=== PATIENT | male | born 1995 | race Caucasian/White ===

== ENCOUNTER 2017-06-14 11:27 | Emergency (ER) | payer BC ==
[~2017-06-14] VITALS: Ht 177.8 cm; Wt 72.6 kg
[~2017-06-14 11:27] MED LIST: TRAMADOL HCL50 MG PO
[2017-06-14] MEDS ORDERED: HUMIRA CRO40 MG/0.8 SUB-Q (11:41)
[2017-06-15] MEDS ORDERED: AUGMENTIN 875-1 EACH PO (08:23)
[2017-06-15] MEDS ORDERED: MEDROL4 MG PO (08:23)
== END 2017-06-14 11:45 | disposition home or self-care (01) ==
LOC: ED 11:27
DX: J02.9 Acute pharyngitis, unspecified (principal)

== ENCOUNTER 2017-06-15 08:06 | Emergency (ER) | payer BC, OTHER ==
[~2017-06-15] VITALS: Ht 177.8 cm; Wt 72.6 kg
[~2017-06-15 08:06] MED LIST changes: +HUMIRA CRO40 MG/0.8 SUB-Q
[2017-06-15] MEDS ORDERED: AUGMENTIN 875-1 EACH PO (08:23)
[2017-06-15] MEDS ORDERED: MEDROL4 MG PO (08:23)
== END 2017-06-15 09:20 | disposition home or self-care (01) ==
LOC: ED 08:06
DX: J03.90 Acute tonsillitis, unspecified (principal); Z79.899 Other long term (current) drug therapy
CPT/HCPCS: 86308; 99283

== ENCOUNTER 2019-02-23 21:01 | Emergency (ER) | payer OTHER, BC ==
[~2019-02-23] VITALS: Ht 177.8 cm; Wt 63.5 kg
--- OUTSIDE RECORDS SUMMARY | ~2019-02-23 | XMS | Encounter Summary ---
Demographics + + + | Address | [address] | | | [place] [address] | + + + | Home Phone | | + + + | Preferred Language | Unknown | + + + | Marital Status | Single | + + + | Jew Affiliation | NON | + + + | Race | White | + + + | Ethnic Group | Not or | + + + Author + + + | Author | [facility] | + + + | Organization | [facility] | + + + | Address | Unknown | + + + | Phone | Unavailable | + + + Support + + + + + | Name | Relationship | Address | Phone | + + + + + | Debora Resendiz | ECON | [address] | | | | | [place] | | | | | [address] | | + + + + + | Quang Resendiz | ECON | Unknown | | + + + + + | Vesna Hernandez | ECON | Unknown | | + + + + + | Pradeep Hyatt | ECON | Unknown | Unavailable | + + + + + | Lonnie Hyatt | ECON | Unknown | Unavailable | + + + + + | Jeremias | ECON | Unknown | | + + + + + Care Team Providers + +------+ + | Care Graphic Editor Name | Role | Phone | + +------+ + | Tracey Galeas MD | PCP | Unavailable | + +------+ + Encounter Details +--------+ + + + + | Date | Type | Department | Care Team | Description | +--------+ + + + + | 05/11/ | Abstract | Pediatric | Tania Foster MD | | | 2011 | | Gastroenterology at | [address] | | | | | [place] | [facility] Ye[facility] | | | | | [facility] | [place] [address] | | | | | [address] [facility] | [phone] | | | | | Mailcode: [address] | | | | | | [place] | | | | | | [place], [place] | | | | | | [address] | | | | | | [phone] | | | +--------+ + + + + Social History + +-------+ +--------+------+ | Tobacco Use | Types | Packs/Day | Years | Date | | | | | Used | | + +-------+ +--------+------+ | Never Smoker | | | | | + +-------+ +--------+------+ + + +---------+ + | Alcohol Use | Drinks/Week | oz/Week | Comments | + + +---------+ + | No | | | | + + +---------+ + + + + | Sex Assigned at | Date Recorded | | | | + + + | Not on file | | + + + + + + + | Job Start Date | Occupation | Industry | + + + + | Not on file | Not on file | Not on file | + + + + + + + + | Travel History | Travel Start | Travel End | + + + + + + | No recent travel history available. | + + documented as of this encounter Plan of Treatment Not on filedocumented as of this encounter Procedures + +--------+ + + + | Procedure Name | Priori | Date/Time | Associated Diagnosis | Comments | | | ty | | | | + +--------+ + + + | THIOPURINE | Routin | 04/22/2011 | | Results for this | | METABOLITES | e | 3:20 PM | | procedure are in the | | | | PST | | results section. | + +--------+ + + + documented in this encounter Results THIOPURINE METABOLITES (04/22/2011 3:20 PM PST) + +---------+ + + + | Component | Value | Ref Range | Performed | Pathologist | | | | | At | Signature | + +---------+ + + + | 6-TGN | 184 (A) | 230 - 400 | [facility] | | | (THIOPURINE | | pmol/8x10 8 RBC | LABORATORIE | | | | | | S | | | METABOLITE) | | | | | + +---------+ + + + | 6-MMPN | 819 | <5,700 | [facility] | | | (THIOPURINE | | pmol/8x10 8 RBC | LABORATORIE | | | | | | S | | | METABOLITE) | | | | | + +---------+ + + + + + | Specimen | + + | Blood | + + + + + + + | Performing | Address | City/State/Zipcode | Phone Number | | Organization | | | | + + + + + | [facility] | [address] | [place] [address] | | | LABORATORIES | [address] | | | + + + + + documented in this encounter Visit Diagnoses Not on filedocumented in this encounter"
--- OUTSIDE RECORDS SUMMARY | ~2019-02-23 | XMS | Encounter Summary ---
Demographics + + + | Address | [address] | | | [place] [address] | + + + | Home Phone | | + + + | Preferred Language | Unknown | + + + | Marital Status | Single | + + + | Methodist Affiliation | NON | + + + | Race | White | + + + | Ethnic Group | Not or | + + + Author + + + | Author | [facility] | + + + | Organization | [facility] | + + + | Address | Unknown | + + + | Phone | Unavailable | + + + Support + + + + + | Name | Relationship | Address | Phone | + + + + + | Debora Resendiz | ECON | [address] | | | | | [place] | | | | | [address] | | + + + + + [...] Team Providers + +------+ + | Care Plasterer Rough Name | Role | Phone | + +------+ + | Tracey Galeas MD | PCP | Unavailable | + +------+ + Reason for Visit + + + | Reason | Comments | + + + | Refill Request | [place] | + + + Encounter Details +--------+--------+ + + + | Date | Type | Department | Care Team | Description | +--------+--------+ + + + | 12/31/ | Refill | Pediatric | Tania Foster MD | Refill Request | | 2012 | | Gastroenterology at | [address] | ([place]) | | | | [place] | [facility], | | | | | [facility] | [place] [address] | | | | | [address] | [phone] | | | | | Mailcode: CDR | | | | | | [place] | | | | | | [place], [place] | | | | | | [address] | | | | | | [phone] | | | +--------+--------+ + + + Social History + +-------+ [...] Not on filedocumented as of this encounter Visit Diagnoses Not on filedocumented in this encounter"
--- OUTSIDE RECORDS SUMMARY | ~2019-02-23 | XMS | Encounter Summary ---
Demographics + + + | Address | [address] | | | [place] [address] | + + + | Home Phone | | + + + | Preferred Language | Unknown | + + + | Marital Status | Single | + + + | Sabianism Affiliation | NON | + + + | Race | White | + + + | Ethnic Group | Not or | + + + Author + + + | Author | [facility] | + + + | Organization | [facility] | + + + | Address | Unknown | + + + | Phone | Unavailable | + + + Support + + + + + | Name | Relationship | Address | Phone | + + + + + | Debora Resendiz | ECON | [address] | | | | | [place] | | | | | [address] | | + + + + + [...] Team Providers + +------+ + | Care Chemist Name | Role | Phone | + +------+ + | Srinivas Stephens DO | PCP | | + +------+ + Reason for Visit + + + | Reason | Comments | + + + | Prescription | Rafaela Flores | + + + Encounter Details +--------+ + + + + | Date | Type | Department | Care Team | Description | +--------+ + + + + | 09/29/ | Telephone | Pediatric | Tania Foster MD | Prescription | | 2014 | | Gastroenterology at | [address] | (Rafaela Flores) | | | | [place] | Cristian Yepez [place], | | | | | [facility] | [place] [address] | | | | | [address] | [phone] | | | | | Mailcode: [facility] | | | | | | [place] | | | | | | [place], [place] | | | | | | [address] | | | | | | [phone] | | | +--------+ + + + [...] Not on filedocumented as of this encounter Results VITAMIN D, 25-HYDROXY, SERUM (12/11/2014 2:13 PM PDT) + + + + + + | Component | Value | Ref Range | Performed | Pathologist | | | | | At | Signature | + + + + + + | VITAMIN D | 29.8 (L) | 30 - 80 ng/mL | [facility] | | | 25 HYDROXY | | | LABORATORY | | | | | | SERVICES, | | | | | | SPECIAL IMM | | | | | | + COAG | | + + + + + + + + | Specimen | + + | Blood - Blood | | (substance) | + + + + + | Narrative | Performed At | + + + | REFERENCE INTERVAL: Vitamin D, 25-Hydroxy 0-17years: | [facility] | | Deficiency: less than 20 ng/mL Optimum level: | LABORATORY | | greater than or equal to 20 ng/mL* | SERVICES, | | *(Rankin CL et al. Pediatrics 2008; 122:1128-38.) 18 | SPECIAL IMM + | | years and older: Deficiency: less than 20 | COAG | | ng/mL Insufficiency: 20-29 ng/mL | | | Optimum Level: 30-80 ng/mL High: | | | 81-150 ng/ml Toxic: Greater than | | | 150 ng/mL This assay accurately quantifies the sum of Vitamin D3 | | | 25-hydroxy and Vitamin D2, 25-hydroxy. Reference range | | | change effective 09/16/2012. | | + + + + + + + + | Performing | Address | City/State/Zipcode | Phone Number | | Organization | | | | + + + + + | [facility] | [address] | [place] [address] | | | SERVICES, SPECIAL | [address] | | | | IMM + COAG | | | | + + + + + SEDIMENTATION RATE (12/11/2014 2:13 PM PDT) + +-------+ + + + | Component | Value | Ref Range | Performed | Pathologist | | | | | At | Signature | + +-------+ + + + | SEDIMENTATI | 3 | 0 - 15 mm/hr | [facility] | | | ON RATE | | | LABORATORY | | | | | | SERVICES, | | | | | | CORE | | + +-------+ + + + + + | Specimen | + + | Blood - Blood | | (substance) | + + + + + + + | Performing | Address | City/State/Zipcode | Phone Number | | Organization | | | | + + + + + | [facility] | [address] | [place] [address] | | | SERVICES, CORE | [address] | | | + + + + + COMPLETE METABOLIC SET (NA,K,CL,CO2,BUN,CREAT,GLUC,CA,AST,ALT,BILI TOTAL,ALK PHOS,ALB,PROT TOTAL) (12/11/2014 2:13 PM PDT) + +---------+ + + + | Component | Value | Ref Range | Performed | Pathologist | | | | | At | Signature | + +---------+ + + + | GLUCOSE, | 88 | 60 - 99 mg/dL | [facility] | | | PLASMA | | | LABORATORY | | | (LAB) | | | SERVICES, | | | | | | CORE | | + +---------+ + + + | BUN, PLASMA | 8 | 6 - 20 mg/dL | [facility] | | | (LAB) | | | LABORATORY | | | | | | SERVICES, | | | | | | CORE | | + +---------+ + + + | CREATININE | 0.93 | 0.70 - 1.30 | [facility] | | | PLASMA | | mg/dL | LABORATORY | | | (LAB) | | | SERVICES, | | | | | | CORE | | + +---------+ + + + | EGFR | >60 | >60 mL/min | [facility] | | | - | | | LABORATORY | | | [place] | | | SERVICES, | | | | | | CORE | | + +---------+ + + + | EGFR NON | >60 | >60 mL/min | [facility] | | | -EVIN | | | LABORATORY | | | RICAN | | | SERVICES, | | | | | | CORE | | + +---------+ + + + | SODIUM, | 141 | 136 - 145 | [facility] | | | PLASMA | | mmol/L | LABORATORY | | | (LAB) | | | SERVICES, | | | | | | CORE | | + +---------+ + + + | POTASSIUM, | 3.8 | 3.4 - 5.0 | [facility] | | | PLASMA | | mmol/L | LABORATORY | | | (LAB) | | | SERVICES, | | | | | | CORE | | + +---------+ + + + | CHLORIDE, | 107 | 97 - 108 mmol/L | [facility] | | | PLASMA | | | LABORATORY | | | (LAB) | | | SERVICES, | | | | | | CORE | | + +---------+ + + + | TOTAL CO2, | 29 | 21 - 32 mmol/L | [facility] | | | PLASMA | | | LABORATORY | | | (LAB) | | | SERVICES, | | | | | | CORE | | + +---------+ + + + | CALCIUM, | 9.6 | 8.6 - 10.2 | [facility] | | | PLASMA | | mg/dL | LABORATORY | | | (LAB) | | | SERVICES, | | | | | | CORE | | + +---------+ + + + | BILIRUBIN | 0.7 | 0.3 - 1.2 mg/dL | [facility] | | | TOTAL | | | LABORATORY | | | | | | SERVICES, | | | | | | CORE | | + +---------+ + + + | TOTAL | 7.8 | 6.4 - 8.2 g/dL | [facility] | | | PROTEIN, | | | LABORATORY | | | PLASMA | | | SERVICES, | | | (LAB) | | | CORE | | + +---------+ + + + | ALBUMIN, | 4.6 | 3.5 - 4.7 g/dL | [facility] | | | PLASMA | | | LABORATORY | | | (LAB) | | | SERVICES, | | | | | | CORE | | + +---------+ + + + | ALK PHOS | 73 | 55 - 220 U/L | [facility] | | | | | | LABORATORY | | | | | | SERVICES, | | | | | | CORE | | + +---------+ + + + | AST(SGOT) | 11 | <=41 U/L | [facility] | | | | | | LABORATORY | | | | | | SERVICES, | | | | | | CORE | | + +---------+ + + + | ALT (SGPT) | 17 | <=60 U/L | [facility] | | | | | | LABORATORY | | | | | | SERVICES, | | | | | | CORE | | + +---------+ + + + | ANION | 3 (L) | 4 - 11 mmol/L | [facility] | | | GAP(ALB | | | LABORATORY | | | CORRECTED) | | | SERVICES, | | | | | | CORE | | + +---------+ + + + | POTASSIUM | No Hemo | | [facility] | | | CMNT | | | LABORATORY | | | | | | SERVICES, | | | | | | CORE | | + +---------+ + + + | BILI T CMNT | No Hemo | | [facility] | | | | | | LABORATORY | | | | | | SERVICES, | | | | | | CORE | | + +---------+ + + + | AST CMNT | No Hemo | | [facility] | | | | | | LABORATORY | | | | | | SERVICES, | | | | | | CORE | | + +---------+ + + + | ANION GAP | 5 | mmol/L | [facility] | | | | | | LABORATORY | | | | | | SERVICES, | | | | | | CORE | | + +---------+ + + + + + | Specimen | + + | Blood - Blood | | (substance) | + + + + + | Narrative | Performed At | + + + | GFR is estimated using the MDRD equation recommended by the | [facility] | | National Kidney Disease Education Program. Estimated GFR | LABORATORY | | Interpretive Information: <60 mL/min/1.73 sq m | SERVICES, CORE | | Chronic Kidney Disease <15 mL/min/1.73 sq m | | | Kidney Failure Estimated GFR greater that 60 mL/min/1.73 sq m is of | | | limited clinical value. The MDRD equation is not valid in the | | | following situations: - Patients under 18 years of age - Severe | | | malnutrition or obesity - Vegetarian diet - Rapidly changing kidney | | | function | | + + + + + + + + | Performing | Address | City/State/Zipcode | Phone Number | | Organization | | | | + + + + + | [facility] | [address] | [place] [address] | | | SERVICES, CORE | [address] | | | + + + + + documented in this encounter Visit Diagnoses + + | Diagnosis | + + | Crohn's disease, small and large intestine, other complication - Primary | + + | Adalimumab (Humira) long-term use | + + documented in this encounter"
--- OUTSIDE RECORDS SUMMARY | ~2019-02-23 | XMS | Encounter Summary ---
Demographics + + + | Address | [address] | | | [place] [address] | + + + | Home Phone | | + + + | Preferred Language | Unknown | + + + | Marital Status | Single | + + + | Gnosticist Affiliation | NON | + + + | Race | White | + + + | Ethnic Group | Not or | + + + Author + + + | Author | [facility] | + + + | Organization | [facility] | + + + | Address | Unknown | + + + | Phone | Unavailable | + + + Support + + + + + | Name | Relationship | Address | Phone | + + + + + | Debora Resendiz | ECON | [address] | | | | | [place] | | | | | [address] | | + + + + + [...] Team Providers + +------+ + | Care Emergency Management Coordinator Name | Role | Phone | + +------+ + | Tracey Galeas MD | PCP | Unavailable | + +------+ + Reason for Visit + + + | Reason | Comments | + + + | Question | | + + + Encounter Details +--------+ + + + + | Date | Type | Department | Care Team | Description | +--------+ + + + + | 04/11/ | Telephone | Pediatric | Tania Foster MD | Question | | 2014 | | Gastroenterology at | [address] [facility] [address] [facility] | | | | | [place] | Herminia Yepez [place], | | | | | [facility] | [place] [address] | | | | | [address] [facility] | [phone] | | | | | Mailcode: [address] | | | | | | [place] | | | | | | [place], [place] | | | | | | [address] | | | | | | [phone] | | | +--------+ + + + [...]
--- OUTSIDE RECORDS SUMMARY | ~2019-02-23 | XMS | Encounter Summary ---
Demographics + + + | Address | [address] | | | [place] [address] | + + + | Home Phone | | + + + | Preferred Language | Unknown | + + + | Marital Status | Single | + + + | Sikhism Affiliation | NON | + + + | Race | White | + + + | Ethnic Group | Not or | + + + Author + + + | Author | [facility] | + + + | Organization | [facility] | + + + | Address | Unknown | + + + | Phone | Unavailable | + + + Support + + + + + | Name | Relationship | Address | Phone | + + + + + | Debora Resendiz | ECON | [address] | | | | | [place] | | | | | [address] | | + + + + + [...] Team Providers + +------+ + | Care Disbursing Agent Name | Role | Phone | + +------+ + | Tracey Galeas MD | PCP | Unavailable | + +------+ + Encounter Details +--------+ + + + + | Date | Type | Department | Care Team | Description | +--------+ + + + + | 02/05/ | Documentati | Pediatric | Tania Foster MD | | | 2010 | on | Gastroenterology at | [address] | | | | | [place] | [address] Ye[address] [place], | | | | | [facility] | [place] [address] | | | | | [address] | [phone] | | | | | Mailcode: [facility] | | | | | | [place] | | | | | | [place], [place] | | | | | | [address] | | | | | | [phone] | | | +--------+ + + + [...]
--- OUTSIDE RECORDS SUMMARY | ~2019-02-23 | XMS | Encounter Summary ---
Demographics + + + | Address | [address] | | | [place] [address] | + + + | Home Phone | | + + + | Preferred Language | Unknown | + + + | Marital Status | Single | + + + | Adventist Affiliation | NON | + + + [...] + | Debora Resendiz | ECON | [address] | | | | | [place] | | | | | [address] | | + + + + + [...] Team Providers + +------+ + | Care Academic Support Assistant Name | Role | Phone | + +------+ + | Tracey Galeas MD | PCP | Unavailable | + +------+ + Reason for Visit + + + | Reason | Comments | + + + | Abdominal pain | | + + + Encounter Details +--------+ + + + + | Date | Type | Department | Care Team | Description | +--------+ + + + + | 04/23/ | Telephone | Pediatric | Tania Foster MD | Abdominal pain | | 2011 | | Gastroenterology at | [address] | | | | | [place] | [address] Yepez [place], | | | | | [facility] | [place] [address] | | | | | [address] [place] [address] | [phone] | | | | | Mailcode: [address] | | | | | | [place] | | | | | | [place], [place] | | | | | | [address] | | | | | | [phone] | | | +--------+ + + + [...] filedocumented as of this encounter Visit Diagnoses + + | Diagnosis | + + | Crohn's disease, small and large intestine (HCC) - Primary Regional enteritis of | | small intestine with large intestine | + + documented in this encounter"
--- OUTSIDE RECORDS SUMMARY | ~2019-02-23 | XMS | Encounter Summary ---
Demographics + + + | Address | [address] | | | [place] [address] | + + + | Home Phone | | + + + | Preferred Language | Unknown | + + + | Marital Status | Single | + + + | Bahai Affiliation | NON | + + + | Race | White | + + + | Ethnic Group | Not or | + + + Author + + + | Author | [facility] | + + + | Organization | [facility] | + + + | Address | Unknown | + + + | Phone | Unavailable | + + + Support + + + + + | Name | Relationship | Address | Phone | + + + + + | Debora Resendiz | ECON | [address] | | | | | [place] | | | | | [address] | | + + + + + [...] Team Providers + +------+ + | Care Automotive Sales Representative Name | Role | Phone | + +------+ + | Tracey Galeas MD | PCP | Unavailable | + +------+ + Reason for Referral Diagnostic Testing (Routine) +--------+--------+ + + + + | Status | Reason | Specialty | Diagnoses / | Referred By | Referred To | | | | | Procedures | Contact | Contact | +--------+--------+ + + + + | Closed | | Radiology | Diagnoses | Kristin, | [facility] | | | | | Crohn's | Tania Landrum MD | [address] | | | | | disease, | [address] | [address] | | | | | small and | [address] | | | | | large | [place] Yepez | Mailcode: | | | | | intestine | [place], [place] | [address] | | | | | ([facility]) | [address] | [place] | | | | | Procedures | Phone: | Research | | | | | MR | [id number] | Center | | | | | ENTEROGRAPHY | Fax: | [place], [place] | | | | | ABDOMEN AND | [phone] | [address] | | | | | PELVIS WWO | | Phone: | | | | | CONTRAST | | [phone] | | | | | | | Fax: | | | | | | | [phone] | +--------+--------+ + + + + Reason for Visit +--------+ + | Reason | Comments | +--------+ + | Other | | +--------+ + Encounter Details +--------+ + + + + | Date | Type | Department | Care Team | Description | +--------+ + + + + | 03/05/ | Telephone | Pediatric | Tania Foster MD | Other | | 2011 | | Gastroenterology at | [address] | | | | | [place] | Herminia Yepez [place], | | | | | [facility] | [place] [address] | | | | | [address] | [phone] | | | | | Mailcode: [facility] | | | | | | [address] | | | | | | [place], [place] | | | | | | [address] | | | | | | [phone] | | | +--------+ + + + [...] on filedocumented as of this encounter Results MR ENTEROGRAPHY ABDOMEN AND PELVIS WWO CONTRAST (03/21/2011 10:03 AM PST) + + + + + + | Component | Value | Ref Range | Performed | Pathologist | | | | | At | Signature | + + + + + + | MR | MRI of the abdomen and | | | | | ENTEROGRAPH | pelvis with and without | | | | | Y ABDOMEN | contrast: 03/21/11. | | | | | AND PELVIS | Comparison: None. | | | | | WWO | History: History of | | | | | CONTRAST | Crohn's disease and | | | | | | ileitis. Technique: | | | | | | The patient was imaged | | | | | | prone to reduce motion | | | | | | artifact.The following | | | | | | sequences were performed | | | | | | of the abdomen and | | | | | | pelvisusing the body | | | | | | coil: coronal 3D bTFE, | | | | | | coronal T2 before and | | | | | | afterglucagon, axial T1 | | | | | | WATS, axial bFFE, | | | | | | coronal 2D bFFE, axial | | | | | | T2 TSESPIR (pelvis | | | | | | only), post-contrast | | | | | | coronal THRIVE, and | | | | | | post-contrastaxial T1 | | | | | | WATS. Intravenous | | | | | | contrast dose: 12 mL | | | | | | Omniscan. | | | | | | Entericcontrast dose: | | | | | | 20 mL/kg Volumen, not | | | | | | fully ingested by | | | | | | patient.Intravenous | | | | | | glucagon also | | | | | | administered (0.5 mg | | | | | | total with half | | | | | | givenbetween series 3 | | | | | | and 4, and half given | | | | | | between pre- and | | | | | | post-contrastsequences). | | | | | | Findings: Abdomen: | | | | | | Visualized portions of | | | | | | liver, pancreas, and | | | | | | spleen areunremarkable. | | | | | | Small accessory spleen | | | | | | noted. Kidneys and | | | | | | adrenalglands are normal | | | | | | in appearance. Small | | | | | | mesenteric lymph | | | | | | nodes,within normal | | | | | | limits for age. Pelvis: | | | | | | Unremarkable urinary | | | | | | bladder. Trace pelvic | | | | | | free fluid. Noabscess, | | | | | | fistulae, or perianal | | | | | | inflammation identified. | | | | | | Bowel: Normal small | | | | | | bowel rotation. Mild | | | | | | mural thickening | | | | | | andmucosal | | | | | | hyperenhancement in | | | | | | short segment of | | | | | | terminal ileum, at | | | | | | andjust proximal to | | | | | | ileocecal valve. | | | | | | Remainder of small | | | | | | bowel isunremarkable, | | | | | | without wall thickening, | | | | | | hyperenhancement, | | | | | | orstricture. Slight | | | | | | hyperenhancement without | | | | | | mural thickening | | | | | | ispresent in descending | | | | | | colon. Large amount of | | | | | | fecal matter in | | | | | | rightand transverse | | | | | | colon. Impression: 1. | | | | | | Mild mural thickening | | | | | | and mucosal | | | | | | hyperenhancementover | | | | | | short segment of | | | | | | terminal ileum, at and | | | | | | just proximal | | | | | | toileocecal valve. 2. | | | | | | Slight | | | | | | hyperenhancement without | | | | | | muralthickening in | | | | | | descending colon. | | | | | | Attending Radiologists: | | | | | | Lisa Valenzuela, | | | | | | MariAuthor: Lisa Mason | | | | | | Mari Valenzuela I have | | | | | | personally viewed this | | | | | | procedure/exam, reviewed | | | | | | this report,and made | | | | | | changes to it where | | | | | | appropriate. | | | | | | Final/Electronically | | | | | | signed / Lisa Mason | | | | | | Nicolas 03/21/201111:27 | | | | | | AM | | | | + + + + + + + + | Specimen | + + | | + + + +---------+ + + | Performing | Address | City/State/Zipcode | Phone Number | | Organization | | | | + +---------+ + + | [facility] DEPARTMENT OF | | | | | RADIOLOGY | | | | + +---------+ + + documented in this encounter Visit Diagnoses + + | Diagnosis | + + | Crohn's disease, small and large intestine (HCC) - Primary Regional enteritis of | | small intestine with large intestine | + + documented in this encounter"
--- OUTSIDE RECORDS SUMMARY | ~2019-02-23 | XMS | Encounter Summary ---
Demographics + + + | Address | [address] | | | [place] [address] | + + + | Home Phone | | + + + | Preferred Language | Unknown | + + + | Marital Status | Single | + + + | Baptist Affiliation | NON | + + + | Race | White | + + + | Ethnic Group | Not or | + + + Author + + + | Author | [facility] | + + + | Organization | [facility] | + + + | Address | Unknown | + + + | Phone | Unavailable | + + + Support + + + + + | Name | Relationship | Address | Phone | + + + + + | Debora Resendiz | ECON | [address] | | | | | [place] | | | | | [address] | | + + + + + [...] Team Providers + +------+ + | Care Ict Support Engineer Name | Role | Phone | + +------+ + | Srinivas Stephens DO | PCP | | + +------+ + Reason for Visit + + + | Reason | Comments | + + + | Care Coordination | Adult GI | + + + Encounter Details +--------+ + + + + | Date | Type | Department | Care Team | Description | +--------+ + + + + | 03/01/ | Telephone | Pediatric | Tania Foster MD | Care Coordination | | 2016 | | Gastroenterology at | [address] [facility] | (Adult GI) | | | | [place] | [place] [address] [place], | | | | | [facility] | [place] [address] | | | | | [address] | [phone] | | | | | Mailcode: [facility] | | | | | | [place] | | | | | | [place], [place] | | | | | | [address] | | | | | | [phone] | | | +--------+ + + + [...]
--- OUTSIDE RECORDS SUMMARY | ~2019-02-23 | XMS | Encounter Summary ---
Demographics + + + | Address | [address] | | | [place] [address] | + + + | Home Phone | | + + + | Preferred Language | Unknown | + + + | Marital Status | Single | + + + | Taoist Affiliation | NON | + + + | Race | White | + + + | Ethnic Group | Not or | + + + Author + + + | Author | [facility] | + + + | Organization | [facility] | + + + | Address | Unknown | + + + | Phone | Unavailable | + + + Support + + + + + | Name | Relationship | Address | Phone | + + + + + | Debora Resendiz | ECON | [address] | | | | | [place] | | | | | [address] | | + + + + + [...] Team Providers + +------+ + | Care Type Proof Reproducer Name | Role | Phone | + +------+ + | Tracey Galeas MD | PCP | Unavailable | + +------+ + Encounter Details +--------+ + + + + | Date | Type | Department | Care Team | Description | +--------+ + + + + | 03/14/ | Abstract | Pediatric | Tania Foster MD | | | 2011 | | Gastroenterology at | [address] | | | | | [place] | [place] [facility] | | | | | [facility] | [place] [address] | | | | | [address] [facility] | [phone] | | | | | Mailcode: [place] | | | | | | [place] | | | | | | [place], [place] | | | | | | [address] | | | | | | [phone] | | | +--------+ + + + [...] | + +--------+ + + + | VITAMIN D, | Routin | 03/10/2011 | | Results for this | | 25-HYDROXY, SERUM | e | 1:34 PM | | procedure are in the | | | | PST | | results section. | + +--------+ + + + documented in this encounter Results VITAMIN D, 25-HYDROXY, SERUM (03/10/2011 1:34 PM PST) + + + + + + | Component | Value | Ref Range | Performed | Pathologist | | | | | At | Signature | + + + + + + | VIT D, | 27Comment: 20-29 vitamin | 20 - 80 pg/mL | [place] - | | | 1,25-DIHYDR | d insufficiency | | [place] - | | | OXY | | | [place] | | + + + + + + | VIT D2 | <4 | | [place] - | | | 25-HYDROXY | | | [place] - | | | LEVEL | | | [place] | | + + + + + + | VIT D3 | 27 | | [place] - | | | 25-HYDROXY | | | [place] - | | | LEVEL | | | [place] | | + + + + + + + + | Specimen | + + | Blood - Blood | + + + + + + + | Performing | Address | City/State/Zipcode | Phone Number | | Organization | | | | + + + + + | [facility] | [address] | [place] [address] | | | [place] | | | | + + + + + documented in this encounter Visit Diagnoses Not on filedocumented in this encounter"
--- OUTSIDE RECORDS SUMMARY | ~2019-02-23 | XMS | Encounter Summary ---
Demographics + + + | Address | [address] | | | [place] [address] | + + + | Home Phone | | + + + | Preferred Language | Unknown | + + + | Marital Status | Single | + + + | Faith Affiliation | NON | + + + | Race | White | + + + | Ethnic Group | Not or | + + + Author + + + | Author | [facility] | + + + | Organization | [facility] | + + + | Address | Unknown | + + + | Phone | Unavailable | + + + Support + + + + + | Name | Relationship | Address | Phone | + + + + + | Debora Resendiz | ECON | [address] | | | | | [place] | | | | | [address] | | + + + + + [...] Team Providers + +------+ + | Care Manager Of Engineering Name | Role | Phone | + +------+ + | Tracey Galeas MD | PCP | Unavailable | + +------+ + Reason for Visit AUTH/CERT +--------+--------+ + + + + | Status | Reason | Specialty | Diagnoses / | Referred By | Referred To | | | | | Procedures | Contact | Contact | +--------+--------+ + + + + | Closed | | | | | | +--------+--------+ + + + + Encounter Details +--------+ + + + + | Date | Type | Department | Care Team | Description | +--------+ + + + + | 01/04/ | Hospital | [facility] [address] | Tania Foster MD | | | 2014 | Encounter | [address] | [address] | | | | | [id number] | [address] | | | | | [place] | [place] [address] | | | | | [facility] | [phone] | | | | | [place], [place] [facility] | | | | | | [phone] | | | +--------+ + + + [...] + + documented as of this encounter Last Filed Vital Signs + + + + + | Vital Sign | Reading | Time Taken | Comments | + + + + + | Blood Pressure | 134/63 | 01/04/2014 10:45 AM | | | | | PST | | + + + + + | Pulse | 71 | 01/04/2014 10:00 AM | | | | | PST | | + + + + + | Temperature | 36.6 C (97.9 F) | 01/04/2014 12:30 PM | | | | | PST | | + + + + + | Respiratory Rate | 16 | 01/04/2014 12:30 PM | | | | | PST | | + + + + + | Oxygen Saturation | 100% | 01/04/2014 10:45 AM | | | | | PST | | + + + + + | Inhaled Oxygen | - | - | | | Concentration | | | | + + + + + | Weight | 74.3 kg (163 lb 12.8 | 01/04/2014 7:32 AM | | | | oz) | PST | | + + + + + | Height | 177.8 cm (5' 10") | 01/04/2014 7:32 AM | | | | | PST | | + + + + + | Body Mass Index | 23.5 | 01/04/2014 7:32 AM | | | | | PST | | + + + + + documented in this encounter Discharge Instructions Instructions Tania Foster MD - 01/04/2014 Welcome to Pediatric Endoscopy! We hope to make this procedure as easy as possible. While your child is undergoing endosco py, please remain in your child s bay or the surgical waiting room in case we have a quest ion, and so the doctor can review the findings with you in person. The time you are given for your procedure is approximate. Emergencies arise that may affec t the actual time we are able to start. Our goal is a safe procedure for all. Home Care after Upper Endoscopy/Colonoscopy Activity: Do not have your child do activities that require coordination for 24 hours (i.e. tricycle or bicycle riding, driving a care or any sports requiring coordination). Resume normal activ ities tomorrow. Call the Pediatric GI provider production broaching machine operator for urgent matters If you see any of these signs, call the GI office at [phone] (option 3) during regular business hours, or the GI provider production broaching machine operator after hours for the following: Increased pain in the abdomen that is different from normal. Note: We inject air in orde r to view the bowel, so there may be gas pains. Walking or changing positions can hel p relieve this. Vomiting more than 3 times, or rectal bleeding of more than 3 episodes Fever above 101.5 degrees Fahrenheit. Shortness of breath. Chest or neck pain. Diet and Medicines: Your child may eat his/her normal diet and take usual medicines unless told otherwise by [facility] doctor. How to Reach Your GI Provider: Mon-Fri from 8:00-4:30, call GI Office at [phone]. After hours, weekends, & holidays, call [facility] Motor And Chassis Inspector at [phone]; ask to edwards ve the Pediatric GI provider production broaching machine operator paged for urgent patient issues as described above. Results: Biopsy results may take 10 days to come back; we will contact you when we receive the res ults. Assure that our check-in desk has your contact numbers. Please sign up for CRAZE in order to receive results faster, if you have a computer. Ot will, we will send you a letter or call when results are available. documented in this encounter Medications at Time of Discharge + + + +---------+ + + | Medication | Sig | Dispensed | Refills | Start | End Date | | | | | | Date | | + + + +---------+ + + | MULTIVITAMIN ORAL | Take by mouth. Take | | 0 | | | | | 1 tablet by mouth | | | | | | | Daily. | | | | | + + + +---------+ + + | peg-electrolyte | Mix GOLYtely and | 4000 mL | 0 | 01/03/20 | | | 236-22.74-6.74 gram | take 8 oz every | | | 14 | | | oral recon soln | 20-30 minutes until | | | | | | | full gallon is gone. | | | | | + + + +---------+ + + documented as of this encounter Plan of Treatment Not on filedocumented as of this encounter Procedures + +--------+ + + + | Procedure Name | Priori | Date/Time | Associated Diagnosis | Comments | | | ty | | | | + +--------+ + + + | H. PYLORI CLOTEST | Routin | 01/04/2014 | | Results for this | | | e | 9:27 AM | | procedure are in the | | | | PST | | results section. | + +--------+ + + + | DISACCHARIDASES, | Routin | 01/04/2014 | | Results for this | | TISSUE | e | 9:24 AM | | procedure are in the | | | | PST | | results section. | + +--------+ + + + | CO COLONOSCOPY, | Routin | 01/04/2014 | | Results for this | | FLEX, W/BIOPSY | e | 9:18 AM | | procedure are in the | | | | PST | | results section. | + +--------+ + + + | CO UPPER GI | Routin | 01/04/2014 | | Results for this | | ENDOSCOPY,BIOPSY | e | 9:18 AM | | procedure are in the | | | | PST | | results section. | + +--------+ + + + | COLONOSCOPY | Electi | 01/04/2014 | Regional enteritis | | | | ve | 9:14 AM | of small intestine | | | | Surgic | PST | with large | | | | al | | intestine, without | | | | | | complications (HCC) | | + +--------+ + + + | EGD | Electi | 01/04/2014 | Regional enteritis | | | | ve | 9:14 AM | of small intestine | | | | Surgic | PST | with large | | | | al | | intestine, without | | | | | | complications (HCC) | | + +--------+ + + + | SURGICAL PATHOLOGY | Routin | 01/04/2014 | | Results for this | | | e | | | procedure are in the | | | | | | results section. | + +--------+ + + + documented in this encounter Results H. PYLORI CLOTEST (01/04/2014 9:27 AM PST) + + + + + + | Component | Value | Ref Range | Performed | Pathologist | | | | | At | Signature | + + + + + + | CLOTEST | CLOtest POSITIVE | | [facility] - | | | INTERPRETAT | (A)Comment: Consistent | | [place] - | | | ION | with the presence of | | [place] | | | | Helicobacter pylori. | | | | + + + + + + + + | Specimen | + + | Biopsy | + + + + + + + | Performing | Address | City/State/Zipcode | Phone Number | | Organization | | | | + + + + + | [facility] - | [address] | [place] [address] | | | [place] | | | | + + + + + DISACCHARIDASES, TISSUE (01/04/2014 9:24 AM PST) + + + + + + | Component | Value | Ref Range | Performed | Pathologist | | | | | At | Signature | + + + + + + | SOURCE, | Duodenum | | [facility] | | | TISSUE | | | REFERENCE | | | | | | LAB | | + + + + + + | LACTASE, | 11.0 (L) | 15.0 - 45.5 | [facility] | | | TISSUE | | uM/min/gm prot | REFERENCE | | | | | | LAB | | + + + + + + | SUCRASE, | 42.5 | 25.0 - 69.9 | [facility] | | | TISSUE | | uM/min/gm prot | REFERENCE | | | | | | LAB | | + + + + + + | MALTASE, | 99.3 (L) | 100.0 - 224.4 | [facility] | | | TISSUE | | uM/min/gm prot | REFERENCE | | | | | | LAB | | + + + + + + | PALATINASE, | 11.0 | 5.0 - 26.3 | [facility] | | | TISSUE | | uM/min/gm prot | REFERENCE | | | | | | LAB | | + + + + + + + + | Specimen | + + | Tissue - Duodenum | + + + + + | Narrative | Performed At | + + + | Units are | [facility] | | reported as uM/min/gram protein.Please interpret results with caution. | REFERENCE LAB | | The low levels of all four enzymes could be the result of mucosal | | | injury, drug/medications or auto-immune disorders.These results could | | | also be due to pre-analytic variables, such as an inappropriate | | | freeze-thaw cycle. Test performed by: [facility] | | | [facility] [id number] | | | [place] [address] | | | | | + + + + + + + + | Performing | Address | City/State/Zipcode | Phone Number | | Organization | | | | + + + + + | [facility] | | | | + + + + + | [facility] | see below | | | + + + + + CO UPPER GI ENDOSCOPY,BIOPSY (01/04/2014 9:[address] [facility])CO COLONOSCOPY, FLEX, W/BIOPSY (01/04 9:[address] [facility])SURGICAL PATHOLOGY (01/04/2014) + + + + + + | Component | Value | Ref Range | Performed | Pathologist | | | | | At | Signature | + + + + + + | SURGICAL | SOURCE OF SPECIMEN:A | | [facility] | | | PATHOLOGY | DuodenumSOURCE OF | | DEPARTMENT | | | | SPECIMEN:B AntrumSOURCE | | OF | | | | OF SPECIMEN:C Gastric | | PATHOLOGY | | | | bodySOURCE OF SPECIMEN:D | | | | | | Distal esophagusSOURCE | | | | | | OF SPECIMEN:E Mid | | | | | | esophagusSOURCE OF | | | | | | SPECIMEN:F Terminal | | | | | | ileumSOURCE OF | | | | | | SPECIMEN:G Right | | | | | | colonSOURCE OF | | | | | | SPECIMEN:H Transverse | | | | | | colonSOURCE OF | | | | | | SPECIMEN:I Left | | | | | | colonSOURCE OF | | | | | | SPECIMEN:J Rectosigmoid | | | | | | Final Pathologic | | | | | | Diagnosis:A: Duodenum, | | | | | | biopsy: - | | | | | | Duodenal mucosa with no | | | | | | diagnostic abnormality | | | | | | B: Antrum, | | | | | | biopsy: - Chronic | | | | | | gastritis - | | | | | | Helicobacter-like | | | | | | organisms identified by | | | | | | immunohistochemistry | | | | | | C: Gastric body, | | | | | | biopsy: - Chronic, | | | | | | mildly active gastritis | | | | | | D: Distal | | | | | | esophagus, biopsy: | | | | | | - Squamous mucosa with | | | | | | no diagnostic | | | | | | abnormality E: | | | | | | Mid esophagus, biopsy: | | | | | | - Squamous mucosa | | | | | | with no diagnostic | | | | | | abnormality F: | | | | | | Terminal ileum, | | | | | | biopsy: - Small | | | | | | intestinal mucosa with | | | | | | no diagnostic | | | | | | abnormality G: | | | | | | Right colon, biopsy: | | | | | | - Colonic mucosa | | | | | | with minimal chronic | | | | | | architectural changes | | | | | | (seecomment) H: | | | | | | Transverse colon, | | | | | | biopsy: - Colonic | | | | | | mucosa with minimal | | | | | | chronic architectural | | | | | | changes I: Left | | | | | | colon, biopsy: - | | | | | | Colonic mucosa with | | | | | | minimal chronic | | | | | | architectural changes | | | | | | J: Rectosigmoid, | | | | | | biopsy: - Colonic | | | | | | mucosa with minimal | | | | | | chronic architectural | | | | | | changes Comment: | | | | | | The colon biopsies | | | | | | demonstrate very mild | | | | | | and | | | | | | variablearchitectural | | | | | | changes with occasional | | | | | | benign appearing | | | | | | lymphoid | | | | | | aggregates.There is no | | | | | | evidence of active | | | | | | colitis, granulomas, or | | | | | | dysplasia. Thefeatures | | | | | | are consistent with | | | | | | treated inflammatory | | | | | | bowel disease. | | | | | | Biopsiesfrom the | | | | | | stomach demonstrate | | | | | | chronic gastritis with | | | | | | focal | | | | | | activeinflammation. A | | | | | | claim service representative block | | | | | | (B1) is positive | | | | | | forHelicobacter-like | | | | | | organisms by | | | | | | immunohistochemistry. | | | | | | Case seen by:Shwetha | | | | | | Mari Sosa/Surgical | | | | | | Pathology ResidentKen M. | | | | | | Jakob | | | | | | M.D./PathologistT:01/04/ | | | | | | 14:phoenix (Analyte | | | | | | specific reagents are | | | | | | used in many laboratory | | | | | | tests necessary | | | | | | forstandard medical | | | | | | care. This test was | | | | | | developed and its | | | | | | performancecharacteristi | | | | | | cs determine by [facility] | | | | | | laboratories. It has | | | | | | not been cleared | | | | | | orapproved by the [place] | | | | | | Food and Drug | | | | | | Administration (FDA). | | | | | | FDA does notrequire | | | | | | this test to go through | | | | | | premarket FDA review. | | | | | | This test is usedfor | | | | | | clinical purposes. It | | | | | | should not be regarded | | | | | | as investigational or | | | | | | forresearch. This | | | | | | laboratory is certified | | | | | | under the Clinical | | | | | | LaboratoryImprovement | | | | | | Amendments (CLIA) as | | | | | | qualified to perform | | | | | | high complexityclinical | | | | | | laboratory testing). 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 EGD | | | | | | demonstrates some | | | | | | erythema without in the | | | | | | stomach, aswell as | | | | | | vascular markings within | | | | | | the distal rectum. | | | | | | Gross | | | | | | Description:Received are | | | | | | 10 specimens in | | | | | | formalin in containers | | | | | | labeled with | | | | | | thepatient's name | | | | | | (initials LESTER) and: | | | | | | A: Duodenum: | | | | | | Received in formalin | | | | | | are multiple fragments | | | | | | of bose, softtissue, | | | | | | measuring 1 x 0.8 x 0.3 | | | | | | cm in aggregate. The | | | | | | entire specimen | | | | | | issubmitted. B: | | | | | | Antrum: Received in | | | | | | formalin are 2 fragments | | | | | | of bose, soft | | | | | | tissue,measuring 0.6 x | | | | | | 0.4 x 0.3 cm in | | | | | | aggregate. The entire | | | | | | specimen issubmitted. | | | | | | C: Gastric body: | | | | | | Received in formalin | | | | | | are 2 fragments of bose, | | | | | | softtissue, measuring | | | | | | 0.5 x 0.3 x 0.3 cm in | | | | | | aggregate. The entire | | | | | | specimen issubmitted. | | | | | | D: Distal | | | | | | esophagus: Received in | | | | | | formalin are 2 | | | | | | fragments of bose, | | | | | | softtissue, measuring | | | | | | 0.4 x 0.4 x 0.2 cm in | | | | | | aggregate. The entire | | | | | | specimen issubmitted. | | | | | | E: Mid esophagus: | | | | | | Received in formalin | | | | | | is 1 fragment of bose, | | | | | | soft tissue,measuring | | | | | | 0.3 x 0.3 x 0.2 cm in | | | | | | aggregate. The entire | | | | | | specimen issubmitted. | | | | | | F: Terminal ileum: | | | | | | Received in formalin | | | | | | are multiple fragments | | | | | | of bose,soft tissue, | | | | | | measuring 0.8 x 0.7 x | | | | | | 0.3 cm in aggregate. | | | | | | The entirespecimen is | | | | | | submitted. G: | | | | | | Right colon: | | | | | | Received in formalin | | | | | | are 3 fragments of bose, | | | | | | soft tissue,measuring | | | | | | 0.7 x 0.6 x 0.3 cm in | | | | | | aggregate. The entire | | | | | | specimen issubmitted. | | | | | | H: Transverse | | | | | | colon: Received in | | | | | | formalin are 3 fragments | | | | | | of bose, softtissue, | | | | | | measuring 0.7 x 0.6 x | | | | | | 0.3 cm in aggregate. | | | | | | The entire specimen | | | | | | issubmitted. I: | | | | | | Left colon: Received | | | | | | in formalin is 1 | | | | | | fragment of bose, soft | | | | | | tissue,measuring 0.3 x | | | | | | 0.3 x 0.2 cm in | | | | | | aggregate. The entire | | | | | | specimen issubmitted. | | | | | | J: Rectosigmoid: | | | | | | Received in formalin | | | | | | are 4 fragments of bose, | | | | | | softtissue, measuring | | | | | | 0.8 x 0.7 x 0.3 cm in | | | | | | aggregate. The entire | | | | | | specimen issubmitted. | | | | | | Cassette Index:A: | | | | | | Duodenum:A1B: | | | | | | Antrum:B1C: Gastric | | | | | | body:C1D: Distal | | | | | | esophagus:D1E: Mid | | | | | | esophagus:E1F: | | | | | | Terminal ileum:F1G: | | | | | | Right colon:G1H: | | | | | | Transverse colon:H1I: | | | | | | Left colon:I1J: | | | | | | Rectosigmoid:J1AMJ/phoenix | | | | | | My electronic | | | | | | signature indicates that | | | | | | I have personally | | | | | | reviewed alldiagnostic | | | | | | slides, the gross and/or | | | | | | microscopic portion of | | | | | | thisreport and | | | | | | formulated the final | | | | | | diagnosis. | | | | | | Rendering Diagnostician: | | | | | | Torin Robert | | | | | | MTommyPathologistElectroni | | | | | | zahraa Signed 01/07/2014 | | | | | | 10:26AM | | | | + + + + + + + + | Specimen | + + | | + + + + + + + | Performing | Address | City/State/Zipcode | Phone Number | | Organization | | | | + + + + + | [facility] | [address] | [place] [address] | | | PATHOLOGY | [address] | | | + + + + + documented in this encounter Visit Diagnoses Not on filedocumented in this encounter
--- OUTSIDE RECORDS SUMMARY | ~2019-02-23 | XMS | Encounter Summary ---
Demographics + + + | Address | [address] | | | [place] [address] | + + + | Home Phone | | + + + | Preferred Language | Unknown | + + + | Marital Status | Single | + + + | Spiritism Affiliation | NON | + + + | Race | White | + + + | Ethnic Group | Not or | + + + Author + + + | Author | [facility] | + + + | Organization | [facility] | + + + | Address | Unknown | + + + | Phone | Unavailable | + + + Support + + + + + | Name | Relationship | Address | Phone | + + + + + | Debora Resendiz | ECON | [address] | | | | | [place] | | | | | [address] | | + + + + + [...] Team Providers + +------+ + | Care Garbage Stoker Name | Role | Phone | + +------+ + | Tracey Galeas MD | PCP | Unavailable | + +------+ + Reason for Visit + + + | Reason | Comments | + + + | Crohn's disease | | + + + PROC - Outpatient Surgery (Routine) +--------+--------+ + + + + | Status | Reason | Specialty | Diagnoses / | Referred By | Referred To | | | | | Procedures | Contact | Contact | +--------+--------+ + + + + | Closed | | Pediatric | Diagnoses | Kristin, | Ped [facility] | | | | Gastroenterol | Regional | Tania Landrum MD | Hem Onc Dch | | | | ogy | enteritis of | [address] | [address] | | | | | small | Anam | Dr | | | | | intestine | [place] | Mailcode: | | | | | with large | [place], [place] | DCH10C | | | | | intestine | [address] | [place] | | | | | (HCC) | Phone: | [place], [place] | | | | | Anorexia | [phone] | [address] | | | | | Pre-procedur | Fax: | Phone: | | | | | e Diagnoses | [phone] | [phone] | | | | | | | Fax: | | | | | Procedures | | [phone] | | | | | [place] | | | | | | | INFLIXIMAB | | | | | | | INJECTION, | | | | | | | 10 MG [place] | | | | | | | THR/PRPH/DX | | | | | | | IV INF,IN | | | | | | | [place] | | | | | | | THER/PROPH/D | | | | | | | IAG IV | | | +--------+--------+ + + + + Encounter Details +--------+---------+ + + + | Date | Type | Department | Care Team | Description | +--------+---------+ + + + | 07/31/ | Office | Hematology | Tania Foster MD | High risk | | 2011 | Visit | Oncology at [facility] [address] | [address] [facility] | medications (not | | | | [address] [facility] [address] | [place], | anticoagulants) | | | | Mailcode: DCH10C | [place] [address] | long-term use | | | | [place] | [phone] | (Primary Dx) | | | | [place], [place] | | | | | | [address] | | | | | | [phone] | | | +--------+---------+ + + + Social History + +-------+ [...] + + documented as of this encounter Patient Instructions Patient Instructions Wilmer WEINBERG, Sherron - 08/01/2011 4:29 PM PDTFollow up for next Remicade infusion in 8 weeks. Set your phone or watch alarm as a reminder to take medications. documented in this encounter Progress Notes Sherron Guillen NP - 08/01/2011 4:03 PM PDTFormatting of this note might be differe nt from the original. PEDIATRIC GASTROENTEROLOGY IBD FOLLOW-UP CONSULTATION Jeremias Adames is an 15 y.o. male, who is referred by Tracey Galeas to [facility] accompanied by his mother and father, for a scheduled Remicade infusion. Patient Active Problem List Diagnoses Weight loss Diarrhea Heartburn Anemia Abdominal pain, acute, right upper quadrant Nausea Crohn's disease, small and large intestine with 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, severe duodenit is Gastric ulcer Anorexia Helicobacter positive gastritis High risk medications (not anticoagulants) long-term use Past IBD history: Diagnosed with Crohn's disease Feb 2011. Hospitalized May 2011 for IV steroids and to ini tiate Remicade after colonoscopy demonstrated progression of disease. Medications that failed prior to changing to Remicade or Humira? Oral steroids with imuran and mesalamine. Current medicines include: Current Outpatient Prescriptions Medication Sig azaTHIOprine (IMURAN) 50 mg Oral Tablet Take 3 Tabs by mouth once daily. Take at hs, on empty stomach Indications: Crohn's Disease ergocalciferol 50,000 unit Oral Capsule Take 1 Cap by mouth every seven days. mesalamine EC 400 mg Oral Tablet, Delayed Release (E.C.) Take 3 Tabs by mouth two times daily. Indications: Crohn's Disease metroNIDAZOLE (FLAGYL) 250 mg Oral Tablet Take 0.5 Tabs by mouth every twelve hours. Ta ke only until the end of July. omeprazole (PRILOSEC) 20 mg Oral Capsule, Delayed Release(E.C.) Take 2 Caps by mouth on ce daily in the morning. ondansetron 8 mg Oral Tablet Take 8 mg by mouth every twelve hours as needed. predniSONE 10 mg Oral Tablet Take 4 Tabs by mouth once daily. Take 40 mg/day for 2 wk, until July 05, then decrease by 5 mg every Thursday. Changes in Medications since we last saw patient? Prednisone taper. There is confusion betw een mother and Jeremias over the dose, 20 mg daily or 30 mg daily. Interval history update: Patient reports today that stools are 1-2/day and soft formed in consistency. Blood or mucus in the stool? no Urgency? no Abdominal pain? no Nausea? no. Vomiting? no. Energy level is improved, good. Appetite is good. New medical/surgical issues since last visit? Broke his right ankle, in a walking boot. ROS: Aphthous ulcers? no Any joint or eye pain? no Any cough or nasal discharge recently? no Any known clotting disorder? no Any recent fever ? no Any skin problems or rash? no Has weight been stable? No - gaining, 12 lbs in the last month GI aspects of ROS noted in the Interval History section above. Cardiovascular: Negative Genitourinary:Negative Neurologic: Negative Social history: Lives with mother and step brother and sister and dad. Has missed excessiv e amounts of school this year and will require credit recovery. Medication compliance estimate - 70%. He took a 4 day trip and forgot to take his med ications. Since he has been feeling better he forgets to take his medication. It is a source of conflict in the family. Nutrition: Taking multivitamin? yes Calcium intake adequate? yes No Known Allergies Ht 170.9 cm (5' 7.28") (57 %ile), Wt 62.5 kg (137 lbs 12.6 oz) (73 %ile), Weight for age(%) 72.59%, BMI for age(%) 70.65%, Length for age(%) 57.43%, BP 142/78, Pulse 98, Temperatur e 36.9 C (98.4 F), Temperature source Oral, RR 20. (Taken on ThuAug 01, 2011 12:59 PM ) Examination: Appearance: alert, active and in no apparent distress. Skin: turgor normal, capillary refill brisk, no rashes, petechiae HEENT: normocephalic,PERRLA , sclera nonicteric,nose without discharge, mouth no aphthous l esions, mucous membranes moist, pharynx unremarkable Neck: supple, without thyromegaly Chest: clear to auscultation bilaterally. CV: regular sinus rhythm, no murmurs. Abdomen: normal bowel sounds, soft, no distention, no tenderness to palpation, no rebound or guarding, no fullness in the RLQ or palpable masses, no hepatosplenomegaly Musculoskeletal: grossly intact without clubbing or edema Neuro: normal gait and speech for age Nodes: no significant cervical or supraclavicular adenopathy Psychiatric- affect somewhat withdrawn. He has lost phone privileges, he has some school an d parent stressors. Patient reports a pain level of today. ___ No action required _X__ See assessment and plan Lab results from last GI visit: Office Visit on 08/01/2011 Component Date Value Range WHITE CELL COUNT (K/cu mm) 08/01/2011 4.5* 4.9-15.5 RED CELL COUNT (M/cu mm) 08/01/2011 5.24 4.50-5.30 HEMOGLOBIN (g/dL) 08/01/2011 13.0 13.0-16.0 HEMATOCRIT (%) 08/01/2011 39.3 37.0-49.0 MCV (fL) 08/01/2011 74.9* 80.0-96.0 MCHC (g/dL) 08/01/2011 33.0* 33.4-35.5 RDW (%) 08/01/2011 21.0* 11.5-15.0 PLATELET COUNT (K/cu mm) 08/01/2011 309 150-400 RBC MORPHOLOGY 08/01/2011 - Value: Anisocytosis ++ Hypochromasia + Microcytosis + ALBUMIN, PLASMA (LAB) (g/dL) 08/01/2011 3.9 3.5-4.7 BILIRUBIN TOTAL (mg/dL) 08/01/2011 0.6 0.3-1.2 BILIRUBIN DIRECT (mg/dL) 08/01/2011 0.1 - ALK PHOS (U/L) 08/01/2011 141 110-440 AST(SGOT) (U/L) 08/01/2011 40* 18-36 ALT (SGPT) (U/L) 08/01/2011 26 13-48 TOTAL PROTEIN, PLASMA (LAB) (g/dL) 08/01/2011 6.7 5.9-8.2 NEUTROPHIL % (%) 08/01/2011 69 41-76 LYMPHOCYTE % (%) 08/01/2011 22 7-41 MONOCYTE % (%) 08/01/2011 6 3-13 EOS % (%) 08/01/2011 2 - BASO % (%) 08/01/2011 1 - NEUTROPHIL # (K/cu mm) 08/01/2011 3.1 2.8-11.1 LYMPHOCYTE # (K/cu mm) 08/01/2011 1.0 0.4-3.2 MONOCYTE # (K/cu mm) 08/01/2011 0.3 0.3-1.3 EOS # (K/cu mm) 08/01/2011 0.1 - BASO # 08/01/2011 0.0 - Assessment : This is a patient with the following chronic medical conditions: Patient Active Problem List Diagnoses Weight loss Diarrhea Heartburn Anemia Abdominal pain, acute, right upper quadrant Nausea Crohn's disease, small and large intestine with 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, severe duodenit is Gastric ulcer Anorexia Helicobacter positive gastritis High risk medications (not anticoagulants) long-term use The inflammatory bowel is under good control. Plan: 1. There were no changes made in the remaining listed GI medications. Mother will review th e current prednisone dose and follow up with Dr. Foster for any questions. Jeremias was encoura [employer] to set the alarm function on his phone or watch to remind him to take his medications. 2. Labs or imaging ordered are listed below, including CBC, liver set. 3.. Education: For further information on GI topics, we direct our families to [email or web address]:[email or web address] and www.[email or web address] 4. Health care maintenance [place]per exam every 2 years. Flu shot reminder: in the fall Note: Immunosuppressed patients on Remicade, Humira, Cimzia, chronic steroids, methotrexate , imuran or 6-MP should not have live virus vaccinations , including the nasal flu mist, MMR or Varicella vaccination. 5. Next recommended follow-up in GI clinic: 8 weeks for Remicade infusion. [facility] GASTROENTEROLOGY HEMATOLOGY ONCOLOGY [address] [facility] Mailcode: Dch10c [facility] [place] [id number] documented in t his encounter Plan of Treatment Not on filedocumented as of this encounter Visit Diagnoses + + | Diagnosis | + + | High risk medications (not anticoagulants) long-term use - Primary Encounter for | | long-term (current) use of other medications | + + documented in this encounter
--- OUTSIDE RECORDS SUMMARY | ~2019-02-23 | XMS | Encounter Summary ---
Demographics + + + | Address | [address] | | | [place] [address] | + + + | Home Phone | | + + + | Preferred Language | Unknown | + + + | Marital Status | Single | + + + | Judaism Affiliation | NON | + + + | Race | White | + + + | Ethnic Group | Not or | + + + Author + + + | Author | [facility] | + + + | Organization | [facility] | + + + | Address | Unknown | + + + | Phone | Unavailable | + + + Support + + + + + | Name | Relationship | Address | Phone | + + + + + | Debora Resendiz | ECON | [address] | | | | | [place] | | | | | [address] | | + + + + + [...] Team Providers + +------+ + | Care Textile Conversion Manager Name | Role | Phone | + [...] | +--------+ + + + + | 11/29/ | Telephone | Pediatric | Tania Foster MD | Question | | 2012 | | Gastroenterology at | [address] [facility] | | | | | [place] | [place], | | | | | [facility] | [place] [address] | | | | | [address] [facility] | [phone] | | | | | Mailcode: [address] | | | | | | [place] | | | | | | [place], [place] | | | | | | [address] | | | | | | [phone] | | | +--------+ + + + [...] | Crohn's disease, 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
--- OUTSIDE RECORDS SUMMARY | ~2019-02-23 | XMS | Encounter Summary ---
Demographics + + + | Address | [address] | | | [place] [address] | + + + | Home Phone [...] Author + + + | Author | [facility] | + + + | Organization | [facility] | + + + | Address | Unknown | + + + | Phone | Unavailable | + + + Support + + + + + | Name | Relationship | Address | Phone | + + + + + | Debora Resendiz | ECON | [address] | | | | | [place] | | | | | [address] | | + + + + + [...] Team Providers + +------+ + | Care Heel Attacher Name | Role | Phone | + +------+ + | Tracey Galeas MD | PCP | Unavailable | + +------+ + Encounter Details +--------+ + + + + | Date | Type | Department | Care Team | Description | +--------+ + + + + | 01/11/ | Abstract | Pediatric | Tania Foster MD | | | 2011 | | Gastroenterology at | [address] | | | | | [place] | [place] | | | | | [facility] | [place] [address] | | | | | [address] [facility] | [phone] | | | | | Mailcode: [address] | | | | | | [place] | | | | | | [place], [place] | | | | | | [address] | | | | | | [phone] | | | +--------+ + + + [...] | + +--------+ + + + | IBD SGI DIAGNOSTIC | Routin | 01/05/2012 | | Results for this | | | e | 4:45 PM | | procedure are in the | | | | PST | | results section. | + +--------+ + + + documented in this encounter Results IBD SGI DIAGNOSTIC (01/05/2012 4:45 PM PST) + + + + + + | Component | Value | Ref Range | Performed | Pathologist | | | | | At | Signature | + + + + + + | ALKAL[facility] | IFX 25.6 | <1.0 U/L | [facility] | | | PHOS, OTHER | | | LABORATORIE | | | CALC | | | S | | + + + + + + | ALKALINE | ATI <3.1 | <3.1 U/L | [facility] | | | PHOS, OTHER | | | LABORATORIE | | | CALC | | | S | | + + + + + + + + | Specimen | + + | Blood - Blood | + + + + + + + | Performing | Address | City/State/Zipcode | Phone Number | | Organization | | | | + + + + + | [facility] | [address] [facility] | [place] [address] | | | LABORATORIES | [address] | | | + + + + + documented in this encounter Visit Diagnoses Not on filedocumented in this encounter"
--- OUTSIDE RECORDS SUMMARY | ~2019-02-23 | XMS | Encounter Summary ---
Demographics + + + | Address | [address] | | | [place] [address] | + + + | Home Phone [...] + | Debora Resendiz | ECON | [address] | | | | | [place] | | | | | [address] | | + + + + + [...] Team Providers + +------+ + | Care Print Inspector Name | Role | Phone | + +------+ + | Tracey Galeas MD | PCP | Unavailable | + +------+ + Reason for Visit + + + | Reason | Comments | + + + | Test Results | | + + + Encounter Details +--------+ + + + + | Date | Type | Department | Care Team | Description | +--------+ + + + + | 04/27/ | Telephone | Pediatric | Tania Foster MD | Test Results | | 2011 | | Gastroenterology at | [address] | | | | | [place] | [place], | | | | | [facility] | [place] [address] | | | | | [address] [facility] | [phone] | | | | | Mailcode: [place] | | | | | | [place] | | | | | | [place], [place] | | | | | | [address] | | | | | | [phone] | | | +--------+ + + + [...]
--- OUTSIDE RECORDS SUMMARY | ~2019-02-23 | XMS | Encounter Summary ---
Demographics + + + | Address | [address] | | | [place] [address] | + + + | Home Phone | | + + + | Preferred Language | Unknown | + + + | Marital Status | Single | + + + | Oriental Orthodox Affiliation | NON | + + + | Race | White | + + + | Ethnic Group | Not or | + + + Author + + + | Author | [facility] | + + + | Organization | [facility] | + + + | Address | Unknown | + + + | Phone | Unavailable | + + + Support + + + + + | Name | Relationship | Address | Phone | + + + + + | Debora Resendiz | ECON | [address] | | | | | [place] | | | | | [address] | | + + + + + [...] Team Providers + +------+ + | Care Associate Director Name | Role | Phone | + +------+ + | Srinivsa Stephens DO | PCP | | + +------+ + Encounter Details +--------+ + + + + | Date | Type | Department | Care Team | Description | +--------+ + + + + | 04/03/ | Outside | Diagnostic Imaging | Tracey Galeas | | | 2011 | Referral | Services at [facility] | MD Aram | | | | Order | [address] | | | | | | [place] Mailcode: | | | | | | [address] | | | | | | [facility] | | | | | | [place], [place] | | | | | | [address] | | | | | | [phone] | | | +--------+ + + + [...]
--- OUTSIDE RECORDS SUMMARY | ~2019-02-23 | XMS | Encounter Summary ---
Demographics + + + | Address | [address] | | | [place] [address] | + + + | Home Phone | | + + + | Preferred Language | Unknown | + + + | Marital Status | Single | + + + | Yazidi Affiliation | NON | + + + | Race | White | + + + | Ethnic Group | Not or | + + + Author + + + | Author | [facility] | + + + | Organization | [facility] | + + + | Address | Unknown | + + + | Phone | Unavailable | + + + Support + + + + + | Name | Relationship | Address | Phone | + + + + + | Debora Resendiz | ECON | [address] | | | | | [place] | | | | | [address] | | + + + + + | Quang Resendiz | ECON | Unknown | | + + + + + | Vesna Hernandez | ECON | Unknown | | + + + + + | Pradepe Hyatt | ECON | Unknown | Unavailable | + + + + + | Lonnie Hyatt | ECON | Unknown | Unavailable | + + + + + | Jeremias | ECON | Unknown | | + + + + + Care Team Providers + +------+ + | Care Analysis Manager Name | Role | Phone | + +------+ + | Tracey Galeas MD | PCP | Unavailable | + +------+ + Reason for Visit +--------+ + | Reason | Comments | +--------+ + | Other | | +--------+ + Encounter Details +--------+ + + + + | Date | Type | Department | Care Team | Description | +--------+ + + + + | 08/01/ | Telephone | Pediatric | Tania Foster MD | Other | | 2011 | | Gastroenterology at | [address] [facility] | | | | | [place] | [facility], | | | | | [facility] | [place] [address] | | | | | [address] | [phone] | | | | | Mailcode: [facility] | | | | | | [place] | | | | | | [place], [place] | | | | | | [address] | | | | | | [phone] | | | +--------+ + + + [...]
--- OUTSIDE RECORDS SUMMARY | ~2019-02-23 | XMS | Encounter Summary ---
Demographics + + + | Address | [address] | | | [place] [address] | + + + | Home Phone | | + + + | Preferred Language | Unknown | + + + | Marital Status | Single | + + + | Congregation Affiliation | NON | + + + | Race | White | + + + | Ethnic Group | Not or | + + + Author + + + | Author | [facility] | + + + | Organization | [facility] | + + + | Address | Unknown | + + + | Phone | Unavailable | + + + Support + + + + + | Name | Relationship | Address | Phone | + + + + + | Debora Resendiz | ECON | [address] | | | | | [place] | | | | | [address] | | + + + + + [...] Team Providers + +------+ + | Care Jewelry Inspector Name | Role | Phone | + +------+ + | Tracey Galeas MD | PCP | Unavailable | + +------+ + Encounter Details +--------+------+ + + + | Date | Type | Department | Care Team | Description | +--------+------+ + + + | 10/19/ | Lab | Lab Center at [facility] | | Crohn's disease, | | 2011 | | 7th Floor [address] | | small and large | | | | [address], | | intestine with | | | | [place] [address] | | granuloma in the | | | | [phone] | | colon, severe | | | | | | duodenitis; | | | | | | Encounter for | | | | | | therapeutic drug | | | | | | monitoring | +--------+------+ + + + Social History + +-------+ [...] | + +--------+ + + + | DIFFERENTIAL | Routin | 10/20/2011 | | Results for this | | | e | 12:34 PM | | procedure are in the | | | | PDT | | results section. | + +--------+ + + + | CBC, WITH | Routin | 10/20/2011 | Crohn's disease, | Results for this | | DIFFERENTIAL | e | 12:34 PM | small and large | procedure are in the | | | | PDT | intestine with | results section. | | | | | granuloma in the | | | | | | colon, severe | | | | | | duodenitis | | + +--------+ + + + | VITAMIN D, | Routin | 10/20/2011 | Crohn's disease, | Results for this | | 25-HYDROXY, SERUM | e | 12:34 PM | small and large | procedure are in the | | | | PDT | intestine with | results section. | | | | | granuloma in the | | | | | | colon, severe | | | | | | duodenitis | | + +--------+ + + + | LIVER SET | Routin | 10/20/2011 | Crohn's disease, | Results for this | | (AST,ALT,BILI | e | 12:34 PM | small and large | procedure are in the | | TOTAL,BILI | | PDT | intestine with | results section. | | DIRECT,ALK | | | granuloma in the | | | PHOS,ALB,PROT TOTAL) | | | colon, severe | | | | | | duodenitis | | | | | | Encounter for | | | | | | therapeutic drug | | | | | | monitoring | | + +--------+ + + + | C-REACTIVE PROTEIN | Routin | 10/20/2011 | Crohn's disease, | Results for this | | | e | 12:34 PM | small and large | procedure are in the | | | | PDT | intestine with | results section. | | | | | granuloma in the | | | | | | colon, severe | | | | | | duodenitis | | + +--------+ + + + | SEDIMENTATION RATE | Routin | 10/20/2011 | Crohn's disease, | Results for this | | | e | 12:34 PM | small and large | procedure are in the | | | | PDT | intestine with | results section. | | | | | granuloma in the | | | | | | colon, severe | | | | | | duodenitis | | + +--------+ + + + | VITAMIN B-12 | Routin | 10/20/2011 | Crohn's disease, | Results for this | | | e | 12:34 PM | small and large | procedure are in the | | | | PDT | intestine with | results section. | | | | | granuloma in the | | | | | | colon, severe | | | | | | duodenitis | | + +--------+ + + + documented in this encounter Results DIFFERENTIAL (10/20/2011 12:34 PM PDT) + +---------+ + + + | Component | Value | Ref Range | Performed | Pathologist | | | | | At | Signature | + +---------+ + + + | NEUTROPHIL | 45 | 41 - 76 % | [facility] | | | % | | | DEPARTMENT | | | | | | OF | | | | | | PATHOLOGY | | + +---------+ + + + | LYMPHOCYTE | 42 (H) | 7 - 41 % | [facility] | | | % | | | DEPARTMENT | | | | | | OF | | | | | | PATHOLOGY | | + +---------+ + + + | MONOCYTE % | 10 | 3 - 13 % | [facility] | | | | | | DEPARTMENT | | | | | | OF | | | | | | PATHOLOGY | | + +---------+ + + + | EOS % | 2 | <7 % | [facility] | | | | | | DEPARTMENT | | | | | | OF | | | | | | PATHOLOGY | | + +---------+ + + + | BASO % | 1 | <3 % | [facility] | | | | | | DEPARTMENT | | | | | | OF | | | | | | PATHOLOGY | | + +---------+ + + + | NEUTROPHIL | 1.9 (L) | 2.8 - 11.1 K/cu | [facility] | | | # | | mm | DEPARTMENT | | | | | | OF | | | | | | PATHOLOGY | | + +---------+ + + + | LYMPHOCYTE | 1.8 | 0.4 - 3.2 K/cu | [facility] | | | # | | mm | DEPARTMENT | | | | | | OF | | | | | | PATHOLOGY | | + +---------+ + + + | MONOCYTE # | 0.4 | 0.3 - 1.3 K/cu | [facility] | | | | | mm | DEPARTMENT | | | | | | OF | | | | | | PATHOLOGY | | + +---------+ + + + | EOS # | 0.1 | <0.4 K/cu mm | [facility] | | | | | | DEPARTMENT | | | | | | OF | | | | | | PATHOLOGY | | + +---------+ + + + | BASO # | 0.0 | <0.3 | [facility] | | | | | | DEPARTMENT | | | | | | OF | | | | | | PATHOLOGY | | + +---------+ + + + + + | Specimen | + + | | + + + + + + + | Performing | Address | City/State/Zipcode | Phone Number | | Organization | | | | + + + + + | [facility] DEPARTMENT OF | [phone] | [place] [address] | | | PATHOLOGY | [address] | | | + + + + + LIVER SET (AST,ALT,BILI TOTAL,BILI DIRECT,ALK PHOS,ALB,PROT TOTAL) (10/20/2011 12:34 PM PDT ) + +---------+ + + + | Component | Value | Ref Range | Performed | Pathologist | | | | | At | Signature | + +---------+ + + + | ALBUMIN, | 4.1 | 3.5 - 4.7 g/dL | [facility] | | | PLASMA | | | DEPARTMENT | | | (LAB) | | | OF | | | | | | PATHOLOGY | | + +---------+ + + + | BILIRUBIN | 0.2 (L) | 0.3 - 1.2 mg/dL | [facility] | | | TOTAL | | | DEPARTMENT | | | | | | OF | | | | | | PATHOLOGY | | + +---------+ + + + | BILIRUBIN | < 0.1 | <0.4 mg/dL | [facility] | | | DIRECT | | | DEPARTMENT | | | | | | OF | | | | | | PATHOLOGY | | + +---------+ + + + | ALK PHOS | 228 (H) | 55 - 220 U/L | [facility] | | | | | | DEPARTMENT | | | | | | OF | | | | | | PATHOLOGY | | + +---------+ + + + | AST(SGOT) | 21 | 18 - 36 U/L | [facility] | | | | | | DEPARTMENT | | | | | | OF | | | | | | PATHOLOGY | | + +---------+ + + + | ALT (SGPT) | 18 | 12 - 60 U/L | [facility] | | | | | | DEPARTMENT | | | | | | OF | | | | | | PATHOLOGY | | + +---------+ + + + | TOTAL | 7.0 | 5.9 - 8.2 g/dL | [facility] | | | PROTEIN, | | | DEPARTMENT | | | PLASMA | | | OF | | | (LAB) | | | PATHOLOGY | | + +---------+ + + + + + | Specimen | + + | Blood - Blood | + + + + + | Narrative | Performed At | + + + | New reference ranges for ALT, Amylase, Total CO2, GGT, Lipase and | [facility] | | Sodium effective 10/07/11 | DEPARTMENT OF | | | PATHOLOGY | + + + + + + + + | Performing | Address | City/State/Zipcode | Phone Number | | Organization | | | | + + + + + | [facility] DEPARTMENT OF | [address] | [place] [address] | | | PATHOLOGY | [address] | | | + + + + + CBC, WITH DIFFERENTIAL (10/20/2011 12:34 PM PDT) + + + + + + | Component | Value | Ref Range | Performed | Pathologist | | | | | At | Signature | + + + + + + | WHITE CELL | 4.2 (L) | 4.9 - 15.5 K/cu | [facility] | | | COUNT | | mm | DEPARTMENT | | | | | | OF | | | | | | PATHOLOGY | | + + + + + + | RED CELL | 4.93 | 4.50 - 5.30 | [facility] | | | COUNT | | M/cu mm | DEPARTMENT | | | | | | OF | | | | | | PATHOLOGY | | + + + + + + | HEMOGLOBIN | 12.0 (L) | 13.0 - 16.0 | [facility] | | | | | g/dL | DEPARTMENT | | | | | | OF | | | | | | PATHOLOGY | | + + + + + + | HEMATOCRIT | 36.5 (L) | 37.0 - 49.0 % | [facility] | | | | | | DEPARTMENT | | | | | | OF | | | | | | PATHOLOGY | | + + + + + + | MCV | 73.9 (L) | 80.0 - 96.0 fL | [facility] | | | | | | DEPARTMENT | | | | | | OF | | | | | | PATHOLOGY | | + + + + + + | MCHC | 32.8 (L) | 33.4 - 35.5 | [facility] | | | | | g/dL | DEPARTMENT | | | | | | OF | | | | | | PATHOLOGY | | + + + + + + | RDW | 16.1 (H) | 11.5 - 15.0 % | [facility] | | | | | | DEPARTMENT | | | | | | OF | | | | | | PATHOLOGY | | + + + + + + | PLATELET | 242 | 150 - 400 K/cu | [facility] | | | COUNT | | mm | DEPARTMENT | | | | | | OF | | | | | | PATHOLOGY | | + + + + + + + + | Specimen | + + | Blood - Blood | + + + + + + + | Performing | Address | City/State/Zipcode | Phone Number | | Organization | | | | + + + + + | [facility] | [address] | [place] [address] | | | PATHOLOGY | [address] | | | + + + + + VITAMIN B-12, SERUM (10/20/2011 12:34 PM PDT) + +-------+ + + + | Component | Value | Ref Range | Performed | Pathologist | | | | | At | Signature | + +-------+ + + + | VITAMIN | 195 | 180 - 914 pg/ml | [facility] | | | B12, SERUM | | | REGIONAL | | | | | | LABORATORY | | + +-------+ + + + + + | Specimen | + + | Serum - Serum | + + + + + | Narrative | Performed At | + + + | Reference Range change effective 01/24/11 | [facility] | | [facility] [address] | [address] | | [place] [address] [address] [facility] | LABORATORY | | [place] [address] | | + + + + + + + + | Performing | Address | City/State/Zipcode | Phone Number | | Organization | | | | + + + + + | [facility] | [address] | [place] [address] | | | LABORATORY | | | | + + + + + C-REACT PRTN (FOR INFLAMMATION) (10/20/2011 12:34 PM PDT) + +-------+ + + + | Component | Value | Ref Range | Performed | Pathologist | | | | | At | Signature | + +-------+ + + + | C-REACTIVE | < 0.5 | <0.6 mg/dl | [facility] | | | PROTEIN | | | REGIONAL | | | | | | LABORATORY | | + +-------+ + + + + + | Specimen | + + | Blood - Blood | + + + + + | Narrative | Performed At | + + + | [facility]) | [facility] | | [facility] [place] [address] | REGIONAL | | [place] [address] | LABORATORY | + + + + + + + + | Performing | Address | City/State/Zipcode | Phone Number | | Organization | | | | + + + + + | [facility] | [address] | [place] [address] | | | LABORATORY | | | | + + + + + SEDIMENTATION RATE (10/20/2011 12:34 PM PDT) + +-------+ + + + | Component | Value | Ref Range | Performed | Pathologist | | | | | At | Signature | + +-------+ + + + | SEDIMENTATI | 4 | <16 mm/hr | [facility] | | | ON RATE | | | DEPARTMENT | | | | | | OF | | | | | | PATHOLOGY | | + +-------+ + + + + + | Specimen | + + | Blood - Blood | + + + + + + + | Performing | Address | City/State/Zipcode | Phone Number | | Organization | | | | + + + + + | [facility] | [address] | [place] [address] | | | PATHOLOGY | [address] | | | + + + + + VITAMIN D, 25-HYDROXY, SERUM (10/20/2011 12:34 PM PDT) + + + + + + | Component | Value | Ref Range | Performed | Pathologist | | | | | At | Signature | + + + + + + | VITAMIN D | 29Comment: REFERENCE | >19 ng/mL | [facility] | | | 25 HYDROXY | INTERVAL: Vitamin D, | | DEPARTMENT | | | | 25-Hydroxy 0-17 | | OF | | | | years: Deficiency: | | PATHOLOGY | | | | less than 20 ng/mL | | | | | | Optimum level: | | | | | | greater than or equal to | | | | | | 20 ng/mL* | | | | | | *(Chucho CL et al. | | | | | | Pediatrics 2008; 122: | | | | | | 1128-38.) 18 | | | | | | years and older: | | | | | | Deficiency: less than 20 | | | | | | ng/mL | | | | | | Insufficiency: 20-29 | | | | | | ng/mL Optimum | | | | | | level: 30-80 ng/mL | | | | | | Possible toxicity: | | | | | | greater than 150 ng/mL | | | | | | This assay | | | | | | accurately quantifies | | | | | | the sum of vitamin D3, | | | | | | 25-hydroxy and | | | | | | vitamin D2, 25-hydroxy. | | | | | | Testing performed | | | | | | in [facility] & | | | | | | Coagulation | | | | | | Department as of April | | | | | | 2010. | | | | + + + + + + + + | Specimen | + + | Serum - Serum | + + + + + + + | Performing | Address | City/State/Zipcode | Phone Number | | Organization | | | | + + + + + | [facility] | [address] | [place] [address] | | | PATHOLOGY | [address] | | | + + + + + documented in this encounter Visit Diagnoses + + | Diagnosis | + + | Crohn's disease, small and large intestine with 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, severe | | duodenitis Regional enteritis of small intestine with large intestine | + + | Encounter for therapeutic drug monitoring | + + documented in this encounter"
--- OUTSIDE RECORDS SUMMARY | ~2019-02-23 | XMS | Encounter Summary ---
Demographics + + + | Address | [address] | | | [place] [address] | + + + | Home Phone | | + + + | Preferred Language | Unknown | + + + | Marital Status | Single | + + + | Jainism Affiliation | NON | + + + | Race | White | + + + | Ethnic Group | Not or | + + + Author + + + | Author | [facility] | + + + | Organization | [facility] | + + + | Address | Unknown | + + + | Phone | Unavailable | + + + Support + + + + + | Name | Relationship | Address | Phone | + + + + + | Debora Resendiz | ECON | [address] | | | | | [place] | | | | | [address] | | + + + + + [...] Providers + +------+ + | Care Ict Business Development Manager Name | Role | Phone | + +------+ + | Tracey Galeas MD | PCP | Unavailable | + +------+ + Reason for Visit +--------+ + | Reason | Comments | +--------+ + | Other | fatigue,abdominal pain, loose stool | +--------+ + Encounter Details +--------+ + + + + | Date | Type | Department | Care Team | Description | +--------+ + + + + | 12/17/ | Telephone | Pediatric | Tania Foster MD | Other | | 2011 | | Gastroenterology at | [address] | (fatigue,abdominal | | | | [place] | [facility], | pain, loose stool) | | | | [facility] | [place] [address] | | | | | [address] | [phone] | | | | | Mailcode: CDRCP | | | | | | [place] | | | | | | [place], [place] | | | | | | [address] | | | | | | [phone] | | | +--------+ + + + [...]
--- OUTSIDE RECORDS SUMMARY | ~2019-02-23 | XMS | Encounter Summary ---
Demographics + + + | Address | [address] | | | [place] [address] | + + + | Home Phone | | + + + | Preferred Language | Unknown | + + + | Marital Status | Single | + + + | Religion Affiliation | NON | + + + | Race | White | + + + | Ethnic Group | Not or | + + + Author + + + | Author | [facility] | + + + | Organization | [facility] | + + + | Address | Unknown | + + + | Phone | Unavailable | + + + Support + + + + + | Name | Relationship | Address | Phone | + + + + + | Debora Resendiz | ECON | [address] | | | | | [place] | | | | | [address] | | + + + + + [...] Team Providers + +------+ + | Care Waste Minimization Technician Name | Role | Phone | + +------+ + | Tracey Galeas MD | PCP | Unavailable | + +------+ + Reason for Visit + + + | Reason | Comments | + + + | Infusion | iron sucrose | + + + Encounter Details +--------+ + + + + | Date | Type | Department | Care Team | Description | +--------+ + + + + | 12/28/ | Drapery Worker | Pediatric | Tania Foster MD | | | 2011 | | Gastroenterology at | [address] | | | | | [place] | [address] [place], | | | | | [facility] | [place] [address] | | | | | [address] [facility] | [phone] | | | | | Mailcode: SUKUMAR | | | | | | [place] | | | | | | [place], [place] | | | | | | [address] | | | | | | [phone] | | | +--------+ + + + [...]
--- OUTSIDE RECORDS SUMMARY | ~2019-02-23 | XMS | Encounter Summary ---
Demographics + + + | Address | [address] | | | [place] [address] | + + + | Home Phone | | + + + | Preferred Language | Unknown | + + + | Marital Status | Single | + + + | Catholic Affiliation | NON | + + + | Race | White | + + + | Ethnic Group | Not or | + + + Author + + + | Author | [facility] | + + + | Organization | [facility] | + + + | Address | Unknown | + + + | Phone | Unavailable | + + + Support + + + + + | Name | Relationship | Address | Phone | + + + + + | Debora Resendiz | ECON | [address] | | | | | [place] | | | | | [address] | | + + + + + | Quang Resendiz | ECON | Unknown | | + + + + + | Vesna Heranndez | ECON | Unknown | | + + + + + | Pradeep Hyatt | ECON | Unknown | Unavailable | + + + + + | Lonnie Hyatt | ECON | Unknown | Unavailable | + + + + + | Jeremias | ECON | Unknown | | + + + + + Care Team Providers + +------+ + | Care Cooling Tower Technician Name | Role | Phone | + +------+ + | Srinivas Stephens DO | PCP | | + +------+ + Reason for Visit + + + | Reason | Comments | + + + | Medication | | | management | | + + + Encounter Details +--------+ + + + + | Date | Type | Department | Care Team | Description | +--------+ + + + + | 06/11/ | Telephone | Pediatric | Tania Foster MD | Medication | | 2016 | | Gastroenterology at | [address] [facility] | management | | | | [place] | [facility], | | | | | [facility] | [place] [address] | | | | | [address] [facility] | [phone] | | | | | Mailcode: [id number] | | | | | | [place] | | | | | | [place], [place] | | | | | | [address] | | | | | | [phone] | | | +--------+ + + + [...]
--- OUTSIDE RECORDS SUMMARY | ~2019-02-23 | XMS | Encounter Summary ---
Demographics + + + | Address | [address] | | | [place] [address] | + + + | Home Phone | | + + + | Preferred Language | Unknown | + + + | Marital Status | Single | + + + | Hoahaoism Affiliation | NON | + + + | Race | White | + + + | Ethnic Group | Not or | + + + Author + + + | Author | [facility] | + + + | Organization | [facility] | + + + | Address | Unknown | + + + | Phone | Unavailable | + + + Support + + + + + | Name | Relationship | Address | Phone | + + + + + | Debora Resendiz | ECON | [address] | | | | | [place] | | | | | [address] | | + + + + + [...] Team Providers + +------+ + | Care Roll Forming Machine Operator Name | Role | Phone | + [...] | +--------+ + + + + | 02/10/ | Telephone | Pediatric | Tania Foster MD | Test Results | | 2011 | | Gastroenterology at | [address] | | | | | [place] | [place] [place], | | | | | [facility] | [place] [address] | | | | | [address] [facility] | [phone] | | | | | Mailcode: SUKUMAR | | | | | | [place] | | | | | | [place], [place] | | | | | | [address] | | | | | | [phone] | | | +--------+ + + + [...]
--- OUTSIDE RECORDS SUMMARY | ~2019-02-23 | XMS | Encounter Summary ---
Demographics + + + | Address | [address] | | | [place] [address] | + + + | Home Phone | | + + + | Preferred Language | Unknown | + + + | Marital Status | Single | + + + | Confucianist Affiliation | NON | + + + | Race | White | + + + | Ethnic Group | Not or | + + + Author + + + | Author | [facility] | + + + | Organization | [facility] | + + + | Address | Unknown | + + + | Phone | Unavailable | + + + Support + + + + + | Name | Relationship | Address | Phone | + + + + + | Debora Resendiz | ECON | [address] | | | | | [place] | | | | | [address] | | + + + + + [...] Team Providers + +------+ + | Care Pharmacy Buyer Name | Role | Phone | + +------+ + | Tracey Galeas MD | PCP | Unavailable | + +------+ + Encounter Details +--------+ + + + + | Date | Type | Department | Care Team | Description | +--------+ + + + + | 02/11/ | Documentati | Pediatric | Tania Foster MD | | | 2011 | on | Gastroenterology at | [address] | | | | | [place] | [place] [place], | | | | | [facility] | [place] [address] | | | | | [address] | [phone] | | | | | Mailcode: CDRCP | | | | | | [place] | | | | | | [place], [place] | | | | | | [address] | | | | | | [phone] | | | +--------+ + + + [...]
--- OUTSIDE RECORDS SUMMARY | ~2019-02-23 | XMS | Encounter Summary ---
Demographics + + + | Address | [address] | | | [place] [address] | + + + | Home Phone | | + + + | Preferred Language | Unknown | + + + | Marital Status | Single | + + + | Tenriism Affiliation | NON | + + + | Race | White | + + + | Ethnic Group | Not or | + + + Author + + + | Author | [facility] | + + + | Organization | [facility] | + + + | Address | Unknown | + + + | Phone | Unavailable | + + + Support + + + + + | Name | Relationship | Address | Phone | + + + + + | Debora Resendiz | ECON | [address] | | | | | [place] | | | | | [address] | | + + + + + [...] Team Providers + +------+ + | Care Lost Charge Card Clerk Name | Role | Phone | + [...] | | | [place] | [address] [facility] | | | | | [facility] | [place] [address] | | | | | [address] [facility] | [phone] | | | | | Mailcode: SUKUMAR | | | | | | [place] | | | | | | [place], [place] | | | | | | [address] | | | | | | [phone] | | | +--------+ + + + [...] | + + + + + | [facility] | [address] | [place] [address] | | | [place] | | | | + + + + + documented in this encounter Visit Diagnoses Not on filedocumented in this encounter"
--- OUTSIDE RECORDS SUMMARY | ~2019-02-23 | XMS | Encounter Summary ---
Demographics + + + | Address | [address] | | | [place] [address] | + + + | Home Phone | | + + + | Preferred Language | Unknown | + + + | Marital Status | Single | + + + | Pentecostal Affiliation | NON | + + + | Race | White | + + + | Ethnic Group | Not or | + + + Author + + + | Author | [facility] | + + + | Organization | [facility] | + + + | Address | Unknown | + + + | Phone | Unavailable | + + + Support + + + + + | Name | Relationship | Address | Phone | + + + + + | Debora Resendiz | ECON | [address] | | | | | [place] | | | | | [address] | | + + + + + [...] Team Providers + +------+ + | Care Acetone Recovery Worker Name | Role | Phone | + +------+ + | Tracey Galeas MD | PCP | Unavailable | + +------+ + Encounter Details +--------+ + + + + | Date | Type | Department | Care Team | Description | +--------+ + + + + | 07/22/ | Telephone | Pediatric | Tania Foster MD | | | 2013 | | Gastroenterology at | [address] | | | | | [place] | [place] [facility] | | | | | [facility] | [place] [address] | | | | | [address] | [phone] | | | | | Mailcode: [facility] | | | | | | [place] | | | | | | [place], [place] | | | | | | [address] | | | | | | [phone] | | | +--------+ + + + [...]
--- OUTSIDE RECORDS SUMMARY | ~2019-02-23 | XMS | Encounter Summary ---
Demographics + + + | Address | [address] | | | [place] [address] | + + + | Home Phone | | + + + | Preferred Language | Unknown | + + + | Marital Status | Single | + + + | Jewish Affiliation | NON | + + + | Race | White | + + + | Ethnic Group | Not or | + + + Author + + + | Author | [facility] | + + + | Organization | [facility] | + + + | Address | Unknown | + + + | Phone | Unavailable | + + + Support + + + + + | Name | Relationship | Address | Phone | + + + + + | Debora Resendiz | ECON | [address] | | | | | [place] | | | | | [address] | | + + + + + [...] Team Providers + +------+ + | Care Clinical Medical Assistant Name | Role | Phone | + +------+ + | Srinivas Stephens DO | PCP | | + +------+ + Reason for Referral Consultation (Routine) +--------+ + + + + + | Status | Reason | Specialty | Diagnoses / | Referred By | Referred To | | | | | Procedures | Contact | Contact | +--------+ + + + + + | Closed | Specialty | Pediatric | Diagnoses | Kristin, | Ped Gastro | | | Services | Gastroenterol | Crohn's | Tania Landrum MD | [facility] [address] | | | Required | ogy | disease of | [address] [facility] | [address] | | | | | both small | Anam | Mailcode: | | | | | and large | Herminia Yepez | [facility] | | | | | intestine | [place] | [place] | | | | | without | [address] | [place], [place] | | | | | complication | Phone: | [address] | | | | | ([facility]) | [phone] | Phone: | | | | | Procedures | Fax: | [phone] | | | | | CONSULT TO | [phone] | Fax: | | | | | PEDS GASTRO | | [phone] | +--------+ + + + + + Reason for Visit + + + | Reason | Comments | + + + | Follow-up in | | | outpatient clinic | | + + + Office Visit - E/M Services (Routine) +--------+--------+ + + + + | Status | Reason | Specialty | Diagnoses / | Referred By | Referred To | | | | | Procedures | Contact | Contact | +--------+--------+ + + + + | Closed | | Pediatric | Diagnoses | Angelo, | Ped Gastro | | | | Gastroenterol | Regional | Srinivas Farnsworth DO | [facility] | | | | ogy | enteritis of | Family | [address] | | | | | small | Health | Mailcode: | | | | | intestine | Associates | [facility] | | | | | with large | [address] | [place] | | | | | intestine | [address] | [place], [place] | | | | | ([facility]) | [place], | [address] | | | | | | [place] [address] | Phone: | | | | | | Phone: | [phone] | | | | | | [phone] | Fax: | | | | | | Fax: | [phone] | | | | | | [phone] | | +--------+--------+ + + + + Encounter Details +--------+---------+ + + + | Date | Type | Department | Care Team | Description | +--------+---------+ + + + | 12/11/ | Office | Pediatric | Tania Foster MD | Crohn's disease of | | 2015 | Visit | Gastroenterology at | [address] [facility] | both small and large | | | | [place] | Herminia Yepez [place], | intestine without | | | | [facility] | [place] [address] | complication (HCC) | | | | [address] | [phone] | (Primary Dx) | | | | Mailcode: CDR[facility] | | | | | | [place] | | | | | | [place], [place] | | | | | | [address] | | | | | | [phone] | | | +--------+---------+ + + + [...] + + + | Blood Pressure | 127/79 | 12/11/2014 3:02 PM | | | | | PDT | | + + + + + | Pulse | 62 | 12/11/2014 3:02 PM | | | | | PDT | | + + + + + | Temperature | - | - | | + + + + + | Respiratory Rate | - | - | | + + + + + | Oxygen Saturation | - | - | | + + + + + | Inhaled Oxygen | - | - | | | Concentration | | | | + + + + + | Weight | 76.6 kg (168 lb 14 | 12/11/2014 3:02 PM | | | | oz) | PDT | | + + + + + | Height | 176.5 cm (5' 9.49") | 12/11/2014 3:02 PM | | | | | PDT | | + + + + + | Body Mass Index | 24.59 | 12/11/2014 3:02 PM | | | | | PDT | | + + + + + documented in this encounter Patient Instructions Patient Instructions Tania Foster MD - 12/11/2014 3:25 PM PDTIt was nice to see you in t clinic today! Our plan: Be sure you sign up for [employer] if you have a computer online. Obtain the web-link and code from our desk staff. Once in the link, it takes only a few minutes to complete setup. Flu shot!! Follow with our psych fellow, Marcela Bach Follow-up: Please schedule your next GI visit in: 6 months What if the studies are normal for my child? Please make a clinic appointment with me to discuss the plan if studies are normal, and if recommended diet changes or other therapy do not resolve the symptoms. Education: For information on GI and nutrition topics, please check out excellent online websites such as: [email or web address] - For constipation info, watch the video "The Irene InYou." [employer] [email or web address] for irritable bowel type of illnesses Results of tests: Results of laboratory tests, biopsies or Xrays will be sent to you by [facility]. If you do not have internet access, results will be sent by mail. Questions: If you have non-urgent questions, please send through [facility]. For urgent questions, please call the [facility] GI office at [phone]. documented in this encounter Progress Notes Tania Foster MD - 12/11/2014 3:10 PM PDT PEDIATRIC GASTROENTEROLOGY IBD CONSULTATION for ONGOING MANAGEMENT Jeremias Adames is an 19 y.o. male, who is referred by Srinivas Stephens to [facility] a ccompanied by self, for follow-up consultation for chief complaint of Crohn's for 5 yr. Jeremias Adames has the following medical problems: Patient Active Problem List Diagnosis Weight loss Diarrhea Heartburn Abdominal pain, acute, right upper quadrant Nausea Crohn's disease, small and large intestine with 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, severe duodenit is Gastric ulcer Anorexia Helicobacter positive gastritis High risk medications (not anticoagulants) long-term use Hematochezia Vitamin B12 deficiency Excessive thirst Neutropenia (HCC) Arthritis associated with inflammatory bowel disease Fatigue Asthma, allergic Vitamin D deficiency Arthralgia of toe Abdominal pain, epigastric Helicobacter pylori gastritis Past IBD history: Diagnosed with Crohn's, with focus of disease mainly in small and large bowel. Medications that have failed to control the disease activity in past or for which there was an adverse reaction: prednisone. Current medicines include: Current Outpatient Prescriptions Medication Sig adalimumab (HUMIRA) 40 mg/0.8 mL subcutaneous syringe kit Inject 1 syringe sub q every 14 days. Please take a Zyrtec 10 mg tab and 500 mg of Tylenol po 30 min before injecting med icine. Indications: CROHN'S DISEASE buPROPion SR 150 mg oral tablet extended release Take by mouth. calcium carbonate chewable 200 mg calcium (500 mg) oral tablet,chewable Take 600 mg by mouth three times daily. cholecalciferol, Vitamin D3, 1,000 unit oral tablet Take 2 tablets by mouth once daily. Indications: VITAMIN D DEFICIENCY mesalamine (LIALDA) 1.2 g oral tablet,delayed release (DR/EC) Take 2 tablets by mouth o nce daily. Indications: CROHN'S DISEASE MULTIVITAMIN ORAL Take by mouth. Take 1 tablet by mouth Daily. peg-electrolyte 236-22.74-6.74 gram oral recon soln Mix GOLYtely and take 8 oz every 20 -30 minutes until full gallon is gone. No current facility-administered medications for this visit. Changes in Medications since we last saw patient? none Interval history update: Patient reports today that stools are 1/day and formed in consistency. Blood or mucus in the stool? no Urgency? no Abdominal pain? no Nausea? no. Vomiting? no. Energy level is good. Appetite is good. New medical/surgical issues since last visit? none ROS: Aphthous ulcers? no Any joint or eye pain? no Any cough or nasal discharge recently? no Any known clotting disorder? no Any recent fever ? no Any skin problems or rash? no Has weight been stable? yes GI aspects of ROS noted in the Interval History section above. Cardiovascular: Negative Genitourinary:Negative Neurologic: Negative Social history: Lives with Jackie. Missing school? n/a Medication compliance estimate ok Nutrition: Taking multivitamin? yes No Known Allergies Ht 1.765 m (5' 9.49") (51 %*, Z = 0.03), Wt 76.6 kg (168 lb 14 oz) (76 %*, Z = 0.71), BP 12 7/79, Pulse 62, BMI 24.59 kg/(m^2). Facility age limit for growth percentiles is 18 years. Examination: Appearance: alert, active and in no apparent distress. Skin: turgor normal, capillary refill brisk, no rashes, petechiae HEENT: normocephalic,PERRLA , sclera nonicteric,nose without discharge, mouth no aphthous l esions, mucous membranes moist, pharynx unremarkable Neck: supple, without thyromegaly Chest: clear to auscultation bilaterally. CV: regular sinus rhythm, normal S1 and S2, no murmurs. Abdomen: normal bowel sounds, soft, non distention, no tenderness to palpation, no reboun d or guarding, no fullness in the RLQ or palpable masses, no hepatosplenomegaly Musculoskeletal: grossly intact without clubbing or edema Neuro: normal gait and speech for age Nodes: no signficant cervical or supraclavicular adenopathy Psychiatric- affect normal Patient reports a pain level of 0 today. ___ No action required ___ See assessment and plan Lab results from last GI visit: Lab on 03/24/2014 Component Date Value Range GLUCOSE, PLASMA (LAB) (mg/dL) 03/24/2014 92 60-99 BUN, PLASMA (LAB) (mg/dL) 03/24/2014 10 6-20 CREATININE PLASMA (LAB) (mg/dL) 03/24/2014 0.72 0.46-0.81 SODIUM, PLASMA (LAB) (mmol/L) 03/24/2014 139 136-145 POTASSIUM, PLASMA (LAB) (mmol/L) 03/24/2014 4.1 3.4-5.0 CHLORIDE, PLASMA (LAB) (mmol/L) 03/24/2014 107 97-108 TOTAL CO2, PLASMA (LAB) (mmol/L) 03/24/2014 28 21-32 CALCIUM, PLASMA (LAB) (mg/dL) 03/24/2014 8.9 8.6-10.2 BILIRUBIN TOTAL (mg/dL) 03/24/2014 0.4 0.3-1.2 TOTAL PROTEIN, PLASMA (LAB) (g/dL) 03/24/2014 7.4 6.4-8.2 ALBUMIN, PLASMA (LAB) (g/dL) 03/24/2014 4.1 3.5-4.7 ALK PHOS (U/L) 03/24/2014 97 55-220 AST(SGOT) (U/L) 03/24/2014 14* 15-41 ALT (SGPT) (U/L) 03/24/2014 26 12-60 ANION GAP(ALB CORRECTED) (mmol/L) 03/24/2014 3* 4-11 POTASSIUM CMNT 03/24/2014 No Hemo - BILI T CMNT 03/24/2014 No Hemo - AST CMNT 03/24/2014 No Hemo - ANION GAP (mmol/L) 03/24/2014 4 - SEDIMENTATION RATE (mm/hr) 03/24/2014 3 0-15 WHITE CELL COUNT (K/cu mm) 03/24/2014 6.58 4.90-15.50 RED CELL COUNT (M/cu mm) 03/24/2014 5.71* 4.50-5.30 HEMOGLOBIN (g/dL) 03/24/2014 14.7 13.0-16.0 HEMATOCRIT (%) 03/24/2014 44.8 37.0-49.0 MCV (fL) 03/24/2014 78.5* 80.0-96.0 MCHC (g/dL) 03/24/2014 32.8 - RDW SD (fL) 03/24/2014 38.3 35.1-46.3 PLATELET COUNT (K/cu mm) 03/24/2014 224 150-400 MPV (fL) 03/24/2014 9.4* 9.7-12.3 NRBC% (%) 03/24/2014 0.0 0.0-0.3 NRBC# (K/cu mm) 03/24/2014 0.00 0.00-0.02 NEUTROPHIL % (%) 03/24/2014 51.3 41.0-76.0 LYMPHOCYTE % (%) 03/24/2014 35.3 7.0-41.0 MONOCYTE % (%) 03/24/2014 8.7 3.0-13.0 EOS % (%) 03/24/2014 2.6 0.0-6.0 BASO % (%) 03/24/2014 1.2 0.0-2.0 IMMATURE GRANULOCYTE% (%) 03/24/2014 0.9* 0.0-0.6 Immature Granulocytes (IG) include metamyelocytes, myelocytes and promyelocytes. Bands ar e not included in the IG count. Bands are included in the neutrophil count. NEUTROPHIL # (K/cu mm) 03/24/2014 3.38 2.80-11.10 LYMPHOCYTE # (K/cu mm) 03/24/2014 2.32 0.40-3.20 MONOCYTE # (K/cu mm) 03/24/2014 0.57 0.30-1.30 EOS # (K/cu mm) 03/24/2014 0.17 0.00-0.30 BASO # (K/cu mm) 03/24/2014 0.08 0.00-0.20 IMMATURE GRANULOCYTE# (K/cu mm) 03/24/2014 0.06* 0.00-0.03 Assessment & Plan : This is a patient with the following chronic medical conditions: Patient Active Problem List Diagnosis Weight loss Diarrhea Heartburn Abdominal pain, acute, right upper quadrant Nausea Crohn's disease, small and large intestine with 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, severe duodenit is Gastric ulcer Anorexia Helicobacter positive gastritis High risk medications (not anticoagulants) long-term use Hematochezia Vitamin B12 deficiency Excessive thirst Neutropenia (HCC) Arthritis associated with inflammatory bowel disease Fatigue Asthma, allergic Vitamin D deficiency Arthralgia of toe Abdominal pain, epigastric Helicobacter pylori gastritis 1. Inflammatory bowel disease The inflammatory bowel is under good control. The disease activity is quiet. 2. Psych- patient with chronic illness now living with grandmother who broke her hip. Has stressed relationship with mother. I placed referral for our collections curator, Marcela Daley. Patient will follow with her. Medications changed today: none Nutrition support: We recommend a multivitamin, folic acid, and calcium supplement. It is important for patients with Crohn's to have adequate vitamin D and calcium intake. Health care maintenance: flu shot! Vaccinations. Patient should have flu shot every fall. No live virus vaccinations for our patients on immunosuppressive medications We encourage HPV vaccination in age appropriate children Psychosocial or economic challenges affecting patient's medical care delivery: yes - caring for grandmother for broken hip Co-morbidities that would affect sedation risk: none An after visit summary was given to the family. In this 30 minute clinic visit I spent at least 50% of the time in [id number] patient edu cation, medical care delivery and in care coordination. Tania Foster MD [facility] [address] [facility] Mailcode: [place] [address] Lab on 12/11/2014 Component Date Value Range GLUCOSE, PLASMA (LAB) (mg/dL) 12/11/2014 88 60-99 BUN, PLASMA (LAB) (mg/dL) 12/11/2014 8 6-20 CREATININE PLASMA (LAB) (mg/dL) 12/11/2014 0.93 0.70-1.30 EGFR - [place]ORE[place] (mL/min) 12/11/2014 >60 >60- EGFR NON -[place] (mL/min) 12/11/2014 >60 >60- SODIUM, PLASMA (LAB) (mmol/L) 12/11/2014 141 136-145 POTASSIUM, PLASMA (LAB) (mmol/L) 12/11/2014 3.8 3.4-5.0 CHLORIDE, PLASMA (LAB) (mmol/L) 12/11/2014 107 97-108 TOTAL CO2, PLASMA (LAB) (mmol/L) 12/11/2014 29 21-32 CALCIUM, PLASMA (LAB) (mg/dL) 12/11/2014 9.6 8.6-10.2 BILIRUBIN TOTAL (mg/dL) 12/11/2014 0.7 0.3-1.2 TOTAL PROTEIN, PLASMA (LAB) (g/dL) 12/11/2014 7.8 6.4-8.2 ALBUMIN, PLASMA (LAB) (g/dL) 12/11/2014 4.6 3.5-4.7 ALK PHOS (U/L) 12/11/2014 73 55-220 AST(SGOT) (U/L) 12/11/2014 11 -<=41 ALT (SGPT) (U/L) 12/11/2014 17 -<=60 ANION GAP(ALB CORRECTED) (mmol/L) 12/11/2014 3* 4-11 POTASSIUM CMNT 12/11/2014 No Hemo - BILI T CMNT 12/11/2014 No Hemo - AST CMNT 12/11/2014 No Hemo - ANION GAP (mmol/L) 12/11/2014 5 - SEDIMENTATION RATE (mm/hr) 12/11/2014 3 0-15 WHITE CELL COUNT (K/cu mm) 12/11/2014 4.72 4.40-11.00 RED CELL COUNT (M/cu mm) 12/11/2014 5.76 4.50-6.00 HEMOGLOBIN (g/dL) 12/11/2014 15.4 13.5-17.5 HEMATOCRIT (%) 12/11/2014 46.5 41.0-53.0 MCV (fL) 12/11/2014 80.7 80.0-96.0 MCHC (g/dL) 12/11/2014 33.1 - RDW SD (fL) 12/11/2014 37.1 35.1-46.3 PLATELET COUNT (K/cu mm) 12/11/2014 210 150-400 MPV (fL) 12/11/2014 9.7 9.7-12.3 NRBC% (%) 12/11/2014 0.0 0.0-0.3 NRBC# (K/cu mm) 12/11/2014 0.00 0.00-0.02 NEUTROPHIL % (%) 12/11/2014 49.1* 50.0-70.0 LYMPHOCYTE % (%) 12/11/2014 39.0 18.0-42.0 MONOCYTE % (%) 12/11/2014 8.7 3.5-9.0 EOS % (%) 12/11/2014 1.7 1.0-3.0 BASO % (%) 12/11/2014 1.1 0.0-2.0 IMMATURE GRANULOCYTE% (%) 12/11/2014 0.4 0.0-0.6 Immature Granulocytes (IG) include metamyelocytes, myelocytes and promyelocytes. Bands ar e not included in the IG count. Bands are included in the neutrophil count. NEUTROPHIL # (K/cu mm) 12/11/2014 2.32 1.80-7.70 LYMPHOCYTE # (K/cu mm) 12/11/2014 1.84 1.00-4.80 MONOCYTE # (K/cu mm) 12/11/2014 0.41 0.10-0.90 EOS # (K/cu mm) 12/11/2014 0.08 0.00-0.50 BASO # (K/cu mm) 12/11/2014 0.05 0.00-0.10 IMMATURE GRANULOCYTE# (K/cu mm) 12/11/2014 0.02 0.00-0.03 documented in this enco unter Plan of Treatment Not on filedocumented as of this encounter Visit Diagnoses + + | Diagnosis | + + | Crohn's disease of both small and large intestine without complication (HCC) - Primary | | Regional enteritis of small intestine with large intestine | + + documented in this encounter
--- OUTSIDE RECORDS SUMMARY | ~2019-02-23 | XMS | Encounter Summary ---
Demographics + + + | Address | [address] | | | [place] [address] | + + + | Home Phone | | + + + | Preferred Language | Unknown | + + + | Marital Status | Single | + + + | Synagogue Affiliation | NON | + + + | Race | White | + + + | Ethnic Group | Not or | + + + Author + + + | Author | [facility] | + + + | Organization | [facility] | + + + | Address | Unknown | + + + | Phone | Unavailable | + + + Support + + + + + | Name | Relationship | Address | Phone | + + + + + | Debora Resendiz | ECON | [address] | | | | | [place] | | | | | [address] | | + + + + + [...] Team Providers + +------+ + | Care Safety Inspector Name | Role | Phone | + +------+ + | Tracey Galeas MD | PCP | Unavailable | + +------+ + Reason for Visit PROC - Outpatient Surgery (Routine) +--------+--------+ + + + + | Status | Reason | Specialty | Diagnoses / | Referred By | Referred To | | | | | Procedures | Contact | Contact | +--------+--------+ + + + + | Closed | | Pediatric | Diagnoses | [facility] | [facility] | | | | G[facility] | [facility] | Tania Landrum MD | Hem Onc Dch | | | | ogy | enteritis of | [address] | [address] | | | | | small | [address] | | | | | intestine | Herminia Yepez | Mailcode: | | | | | with large | [place], [place] | DCH10C | | | | | intestine | [id number] | [place] | | | | | ([facility]LY [facility]) | Phone: | [place], [place] | | | | | Anorexia | [phone] | [phone] | | | | | Pre-procedur | Fax: | Phone: | | | | | e Diagnoses | [phone] | [phone] | | | | | | | Fax: | | | | | Procedures | | [phone] | | | | | NE | | | | | | | INFLIXIMAB | | | | | | | INJECTION, | | | | | | | 10 MG NE | | | | | | | THR/PRPH/DX | | | | | | | IV INF,IN | | | | | | | NE | | | | | | | THER/PROPH/D | | | | | | | IAG IV | | | +--------+--------+ + + + + Encounter Details +--------+---------+ + + + | Date | Type | Department | Care Team | Description | +--------+---------+ + + + | 11/20/ | Office | Hematology | Kaela Blair, | High risk | | 2011 | Visit | Oncology at [facility] [address] | PNP [address] | medications (not | | | | [address] | [address] [place], [place] | anticoagulants) | | | | Mailcode: [id number] | [id number] | long-term use | | | | [place] | [phone] | (Primary Dx) | | | | [place], [place] | | | | | | [address] | | | | | | [phone] | | | +--------+---------+ + + + [...] of this encounter Patient Instructions Patient Instructions Sherron Guillen NP - 11/21/2011 1:01 PM PDT Instant Breakfast in the morning and evening, add butter and cheese to sandwiches Make an appointment with therapist Make an appointment for flu shotElectronically signed by Sherron Guillen NP at 2011 1:04 PM PDT documented in this encounter Progress Notes Tania Camp MD - 11/24/2011 1:34 PM PDT Addended by: TANIA CAMP MD, V on: 11/24/2011 01: 34 PM Modules accepted: Orders lireza Guillen NP - 11/21/2011 12:29 PM PDT PEDIATRIC GASTROENTEROLOGY IBD FOLLOW-UP CONSULTATION Jeremias Adames is an 16 y.o. male, who is referred by Tania Camp to [facility] acc ompanied by his mother, for a scheduled Remicade infusion. Interval history: Jeremias has been very tired lately. He goes to football practice directly after school and sometimes does not get home until 7:30 in the evening. He does his chores and homework and t ried to get to bed by 9:30. He has not had much of an appetite and is losing a little weight . He eats some cereal in the morning, takes a sandwich or 2 in his pack for lunch and eats so me noodles or sandwiches and fruit for dinner. Mom is not home to make dinner anymore. Mom is concerned because he sometimes forgets to take his medication, his appetite is poor, he has no energy and he has been very irritable. He is not in therapy at this time because of scheduling/time pressure issues. Jeremias feels that he is tired but not irritable. He has a girl friend and gets along fine with his friends. He is annoyed with mom who nags him. He has been getting muscle cramps in his right calf at night. 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 FOLIC ACID ORAL Take by mouth. mesalamine EC (ASACOL) 400 mg Oral Tablet, Delayed Release (E.C.) Take 3 Tabs by mouth two times daily. Indications: Crohn's Disease multivitamin Oral capsule Take 1 Cap by mouth once daily. omeprazole (PRILOSEC) 20 mg Oral Capsule, Delayed Release(E.C.) Take 2 Caps by mouth on ce daily in the morning. VIT B12/FA/PYRIDOXAL/B6/BETAIN (COBALAMINE COMBINATIONS ORAL) Take by mouth. No current facility-administered medications for this visit. Facility-Administered Medications Ordered in Other Visits Medication Dose Route Frequency Provider Last Rate Last Dose inFLIXimab (aka REMICADE) IV 400 mg 400 mg Intravenous ONCE Tania Landrum MD Changes in Medications since we last saw patient? Oral B 12 added Interval history update: Patient reports today that stools are 1/day and formed in consistency. Blood or mucus in the stool? no Urgency? no Abdominal pain? no Nausea? no. Vomiting? no. Energy level is poor. Appetite is poor. New medical/surgical issues since last visit? none ROS: Aphthous ulcers? no Any joint or eye pain? no Any cough or nasal discharge recently? no Any known clotting disorder? no Any recent fever ? no Any skin problems or rash? no Has weight been stable? Slight loss GI aspects of ROS noted in the Interval History section above. Cardiovascular: Negative Genitourinary:Negative Neurologic: Negative Social history: Lives with mother and step brother and sister and dad. Mom has gone back to school in the evenings. Parents work during the day. Jeremias is behind in school and will require credit recovery. He is on the football team and practices after school daily. They have several dogs at home, large [place]astiff cross. Missing school? no Medication compliance estimate 75% Nutrition: Taking multivitamin? yes Calcium intake adequate? unclear No Known Allergies Ht 170.2 cm (5' 7.01") (47 %ile), Wt 62.9 kg (138 lbs 10.7 oz) (69 %ile), Weight for age(%) 69.24%, BMI for age(%) 71.50%, Length for age(%) 46.64%, BP 135/68, Pulse 63, Temperatur e 36.7 C (98 F), Temperature source Oral, RR 20. (Taken on ThuNov 21, 2011 8:55 AM ) Examination: Appearance: alert, active and in no apparent distress. Skin: turgor normal, capillary refill brisk, no rashes, petechiae HEENT: normocephalic,PERRLA , sclera nonicteric, nose without discharge, mouth no aphthous lesions, mucous membranes moist, pharynx unremarkable Neck: supple, without thyromegaly Chest: clear to auscultation bilaterally. CV: regular rhythm, normal S1 and S2, no murmurs. Abdomen: normal bowel sounds, soft, no distention, no tenderness to palpation, no rebound or guarding, no fullness in the RLQ or palpable masses, no hepatosplenomegaly Musculoskeletal: grossly intact without clubbing or edema Neuro: normal gait and speech for age Nodes: no significant cervical or supraclavicular adenopathy Psychiatric- affect quiet and calm, reserved. Patient reports a pain level of 0 today. _X__ No action required ___ See assessment and plan Lab results from last GI visit: Clinical Turn Sewer on 11/21/2011 Component Date Value Range WHITE CELL COUNT (K/cu mm) 11/21/2011 3.7* 4.9-15.5 RED CELL COUNT (M/cu mm) 11/21/2011 5.07 4.50-5.30 HEMOGLOBIN (g/dL) 11/21/2011 12.1* 13.0-16.0 HEMATOCRIT (%) 11/21/2011 37.0 37.0-49.0 MCV (fL) 11/21/2011 72.9* 80.0-96.0 MCHC (g/dL) 11/21/2011 32.6* 33.4-35.5 RDW (%) 11/21/2011 16.2* 11.5-15.0 PLATELET COUNT (K/cu mm) 11/21/2011 238 150-400 ALBUMIN, PLASMA (LAB) (g/dL) 11/21/2011 4.1 3.5-4.7 BILIRUBIN TOTAL (mg/dL) 11/21/2011 0.5 0.3-1.2 BILIRUBIN DIRECT (mg/dL) 11/21/2011 0.1 - ALK PHOS (U/L) 11/21/2011 191 55-220 AST(SGOT) (U/L) 11/21/2011 38* 18-36 ALT (SGPT) (U/L) 11/21/2011 20 12-60 TOTAL PROTEIN, PLASMA (LAB) (g/dL) 11/21/2011 7.2 5.9-8.2 AST CMNT 11/21/2011 SL HEMO - NEUTROPHIL % (%) 11/21/2011 37* 41-76 LYMPHOCYTE % (%) 11/21/2011 48* 7-41 MONOCYTE % (%) 11/21/2011 12 3-13 EOS % (%) 11/21/2011 2 - BASO % (%) 11/21/2011 1 - NEUTROPHIL # (K/cu mm) 11/21/2011 1.4* 2.8-11.1 LYMPHOCYTE # (K/cu mm) 11/21/2011 1.8 0.4-3.2 MONOCYTE # (K/cu mm) 11/21/2011 0.4 0.3-1.3 EOS # (K/cu mm) 11/21/2011 0.1 - BASO # 11/21/2011 0.0 - Assessment : This is a patient with the following chronic medical conditions: Patient Active Problem List Diagnoses Weight loss Diarrhea Heartburn Anemia Abdominal pain, acute, right upper quadrant Nausea Crohn's disease, 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 We discussed diet modifications to help increase calorie intake and prevent weight loss. 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 He will drink Gatorade in place of some of his water for practice. We discussed ways to remember to take medications. He takes Omeprazole folic acid, Asacol a nd B 12 in the morning, MVI Calcium and Asacol at night. Putting the pill minder next to his pack or where he will see it may help. We discussed the importance of getting into therapy. Depression is common with chronic dise ases. Adolescents often show irritability and isolation and sleep changes as symptoms rather than depressed mood. Jeremias agrees to go in for evaluation. Mom is unsure of how they can arrange their schedule to get him in but will talk to dad. The family is more stressed with mom gone all day at work and every evening for school. Plan: 1. The following medications were changed: There were no changes made in the remaining lis olga GI medications. 2. Labs or imaging ordered are listed below, including CBC, liver set. 3.. Education: For further information on GI topics, we direct our families to [email or web address]:[email or web address] and www.[email or web address].org 4. Health care maintenance Addresser exam every 2 years. Done this spring Flu shot reminder: Not yet--will try to get in soon Note: Immunosuppressed patients on Remicade, Humira, Cimzia, chronic steroids, methotrexate , imuran or 6-MP should not have live virus vaccinations , including the nasal flu mist, MMR or Varicella vaccination. 5. Next recommended follow-up in GI clinic: 8 weeks for Remicade [facility] [address] [place] [address] Mailcode: [id number] [place] [id number] documented in t his encounter Plan of Treatment Not on filedocumented as of this encounter Visit Diagnoses + + | Diagnosis | + + | High risk medications (not anticoagulants) long-term use - Primary Encounter for | | long-term (current) use of other medications | + + documented in this encounter
--- OUTSIDE RECORDS SUMMARY | ~2019-02-23 | XMS | Encounter Summary ---
Demographics + + + | Address | [address] | | | [place] [address] | + + + | Home Phone | | + + + | Preferred Language | Unknown | + + + | Marital Status | Single | + + + | Buddhism Affiliation | NON | + + + [...] + | Debora Resendiz | ECON | [id number] | | | | | [place] | | | | | [phone] | | + + + + + [...] Team Providers + +------+ + | Care Lining Vamper Name | Role | Phone | + +------+ + | Tracey Galeas MD | PCP | Unavailable | + +------+ + Reason for Visit AUTH/CERT (Routine) +--------+--------+ + + + + | [...] | +--------+ + + + + | 06/18/ | Hospital | [facility] [address] | Dudley oCllazo | | | 2011 - | Encounter | [address], | [place] [address] | | | | | [place] [address] | [address] | | | 06/21/ | | [phone] | [place] [address] | | | 2011 | | | [phone] | | | | | | | | | | | | Evan Rubin MD | | +--------+ + + + + [...] + + + | Blood Pressure | 129/63 | 06/22/2011 8:05 AM | | | | | PDT | | + + + + + | Pulse | 64 | 06/22/2011 8:05 AM | | | | | PDT | | + + + + + | Temperature | 36.1 C (97 F) | 06/22/2011 8:05 AM | | | | | PDT | | + + + + + | Respiratory Rate | 16 | 06/22/2011 8:05 AM | | | | | PDT | | + + + + + | Oxygen Saturation | 100% | 06/22/2011 8:05 AM | | | | | PDT | | + + + + + | Inhaled Oxygen | - | - | | | Concentration | | | | + + + + + | Weight | 53.6 kg (118 lb 2.7 | 06/20/2011 10:20 AM | | | | oz) | PDT | | + + + + + | Height | 167 cm (5' 5.75") | 06/19/2011 4:00 PM | | | | | PDT | | + + + + + | Body Mass Index | 19.22 | 06/19/2011 4:00 PM | | | | | PDT | | + + + + + documented in this encounter Discharge Summaries Julee Quintana MD - 06/22/2011 11:35 AM PDTKP Staff Addendum I performed a history and physical examination of the patient and discussed his management with the resident. I reviewed the resident s note and agree with the documented findings a nd plan of care. Additionally: Jeremias has continued to do very well s/p remicaide. Had 1 formed nonbloody BM yesterday a nd another this AM. Absolutely no abd pain or other complaints. PO'ng well. Exam unchanged from prev - abd remains completely soft and nontender. Plan to DC home today on prednisone 30 mg po bid as well as continue all other home IBD med s (asacol, imuran, flagyl, prilosec) at unchanged doses. Add vit D 50,000 IU qweek. Peds GI to contact family tomorrow to arrange next remicaide infusion in ~2 wks as well as next f/u appt with Dr Muir. Megha SOTO Ino Soto, Sayda morrwo M - 06/22/2011 11:35 AM PDTFormatting of this note might be different from the liseth l. INPATIENT PEDIATRIC PROVIDER DISCHARGE SUMMARY Admission date: 06/19/2011 Discharge date: 06/22/11 Principal Final Diagnosis Diagnoses Principal Final Diagnosis: 1. Crohn's disease Additional Diagnoses: Remicade infusion Principal Procedure Reason for Admission, Significant Findings, Treatment and Complications Brief Hospital Course Jeremias is a 15yo M with Crohn's disease diagnosed February 2011, who was admitted for IV So lumedrol and initiation of Remicade. Crohn's: Started on Solumedrol 30mg BID and bowel movement frequency improved. Also receive d Remicade 06/19 and did well with infusion. On day of discharge, he only had one formed farhan l movement in last 24 hours. No pain throughout admission. For discharge, he was transitione d to Prednisone 30mg PO BID for next two weeks before next Remicade infusion and will taper per Dr. Foster's recommendations. Continue all home meds: Imuran, mesalamine, metronidazole, o meprazole. Will also order Zofran to have at home as needed. High BP: had few episodes of elevated BP while admitted, thought secondary to IV Solumedrol . Will be monitored with [place] nurse visit. FEN: vitamin D level low at 17. Zinc 71. Started on cholecalciferol 50,000 units weekly for 3 months. Physical exam: Last Vitals: BP 129/63 | Pulse 64 | Temp 36.1 C (97 F) | RR 16 | Ht 167 cm (5' 5.75") | Wt 53.6 kg (118 lb 2.7 oz) | SpO2 100% | BMI 19.22 kg/(m^2) 24 Hour Vital Min/Max: Systolic (24hrs), Av mmHg, Min:129 mmHg, Max:139 mmHg Diastolic (24hrs), Av mmHg, Min:62 mmHg, Max:74 mmHg Pulse Min: 64 Max: 81 Temp Min: 36.1 C (97 F) Max: 36.8 C (98.2 F) Resp Min: 16 Max: 18 SpO2 Min: 98 % Max: 100 % General: alert, appropriate, cooperative CV: RRR, no murmurs, cap refill <2 sec Pulm: CTAB, no c/w. No retractions, grunting or flaring Abd: soft, non distended, no tenderness to palpation Ext: no edema, 2+ peripheral pulses Neuro: alert, oriented Diet Diet Pediatric Regular Schoolage Low fiber Activity Activity Restrictions: no restrictions Follow Up Destination: Destination: Home Condition on Discharge Good DISCHARGE MEDICATIONS Discharge Medication List as of 06/22/2011 10:48 AM START taking these medications Details ergocalciferol 50,000 unit Oral Capsule Take 1 Cap by mouth every seven days., Disp-12 Cap, R-0, No Print CONTINUE these medications which have NOT CHANGED Details azaTHIOprine (IMURAN) 50 mg Oral Tablet Take 3 Tabs by mouth once daily. Take at hs, on emp ty stomach Indications: Crohn's Disease, Disp-93 Tab, R-5, eRx mesalamine EC 400 mg Oral Tablet, Delayed Release (E.C.) Take 3 Tabs by mouth two times asia ly. Indications: Crohn's Disease, Disp-186 Tab, R-4, eRx metroNIDAZOLE (FLAGYL) 250 mg Oral Tablet Take 0.5 Tabs by mouth every twelve hours. Take o nly until the end of July., Disp-31 Tab, R-2, eRx ondansetron 8 mg Oral Tablet Take 8 mg by mouth every twelve hours as needed. , Historical Med ranitidine (ZANTAC) 150 mg Oral Tablet Take 1 Tab by mouth two times daily., Disp-62 Tab, R -5, Fax STOP taking these medications predniSONE 10 mg Oral Tablet Comments: Reason for Stopping: Discharging Provider: HANS CAPONE MD Discharging Attending: Julee Quintana MD PCP: [facility] [address] [place] [id number] documented in this enc ounter Discharge Instructions Instructions Marisela Casey, NUBIA - 06/18/2011 Welcome to Pediatric Endoscopy! We hope to [...] ities tomorrow. Call the Pediatric GI provider parts salesperson for urgent matters If you see any of these signs, call the GI office at [phone] (option 3) during regular business hours, or the GI provider parts salesperson after hours for the following: Increased pain [...] take usual medicines unless told otherwise by [facility] doctor. How to Reach Your GI Provider: Mon-Fri from 8:00-4:30, call GI Office at [phone]. After hours, weekends, & holidays, call [facility] Public Health Staff Nurse at [phone]; ask to edwards ve the Pediatric GI provider parts salesperson paged for urgent patient issues as described above. Results: Biopsy results may take 10 days to come back; we will contact you when we receive the res ults. Assure that our check-in desk has your contact numbers. Please sign up for [employer] in order to receive results faster, if you have a computer. Ot herwise, we will send you a letter or call when results are available. Patient Education Materials: Low-fiber diet Additional Instructions: N/A Discharge Nurse: Marisela Casey Date: 06/22/2011 Discharge Time: 10:47 AM AttachmentsThe following attachments cannot be sent through Care Everywhere.Low-Fiber Diet: After Your Visitdocumented in this encounter Progress Notes Mariusz Julian MD - 06/22/2011 9:22 AM PDTFormatting of this note might be different from [facility] original. 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 INTERVAL HISTORY: - 1st Infliximab infusion on 06/19. - Overall feeling much better. - No nausea, abd pain, diarrhea, or blood in stool. PHYSICAL EXAM: Last entered Vitals Ht 167 cm (5' 5.75") (42 %ile), Wt 53.6 kg (118 lbs 2.7 oz) (44 %ile), Weight for age(%) 4 3.71%, BMI for age(%) 47.43%, Length for age(%) 40.95%, BP 129/63, Pulse 64, Temperature 3 6.1 C (97 F), RR 16, SpO2 100%, BMI 19.22 kg/(m^2). Vital Sign Range Temp Av.3 C (97.4 F) Min: 36.1 C (97 F) Max: 36.8 C (98.2 F) Pulse Av.7 Min: 64 Max: 81 Resp Av.7 Min: 16 Max: 18 Systolic (24hrs), Av mmHg, Min:129 mmHg, Max:139 mmHg Diastolic (24hrs), Av mmHg, Min:62 mmHg, Max:74 mmHg SpO2 Av.3 % Min: 98 % Max: 100 % I/O Summary Intake/Output Summary (Last 24 hours) at 06/22/11 0923 Last data filed at 06/22/11 0800 Gross per 24 hour Intake 873 ml Output 1275 ml Net -402 ml General Appearance: Active, alert, NAD Head: Mild [place] face Eyes,Ears, Nose, Throat: No icterus, MMM Respiratory: CTAB Cardiovascular: RRR Gastrointestinal: soft, NTND, +BS Rectal: Deferred Lymphatic: No LAD Musculoskeletal: Normal Skin: No rash Neurologic: Grossly normal Medications: Current Inpatient Medications Medication Dose Route Frequency acetaminophen (aka TYLENOL) tablet 500 mg 500 mg Oral Q4H PRN azaTHIOprine (aka IMURAN) tablet 150 mg 150 mg Oral DAILY diphenhydrAMINE (aka BENADRYL) injection 50 mg 1 mg/kg (Dosing Weight) Intravenous PRN EPINEPHrine (aka ADRENALIN) injection 0.3 mg 0.3 mg Subcutaneous PRN ergocalciferol (aka VITAMIN D2, DRISDOL) capsule 50,000 Units 50,000 Units Oral Q7D hydrocortisone sodium succinate (PF) (aka SOLU-CORTEF) injection 50 mg 50 mg Intraveno us PRN lidocaine (aka LMX 4) 4 % cream Topical PRN mesalamine EC (aka ASACOL) tablet 1,200 mg 1,200 mg Oral BID methylPREDNISolone sod succ (aka SOLU-MEDROL) injection 30 mg 30 mg Intravenous BID metronidazole (aka FLAGYL) oral dose 125 mg 125 mg Oral BID omeprazole (aka PRILOSEC) capsule 20 mg 20 mg Oral DAILY ondansetron (aka ZOFRAN) tablet 8 mg 8 mg Oral Q12H PRN Facility-Administered Medications Ordered in Other Encounters Medication Dose Route Frequency alfentanil (aka ALFENTA) injection INTRAPROCEDURE PRN lactated ringers IV PRN midazolam (aka VERSED) injection INTRAPROCEDURE PRN propofol (aka DIPRIVAN) injection PRN propofol INTRAPROCEDURE PRN LAB DATA: None today ASSESSMENT: Patient Active Problem List Diagnoses Date Noted Anorexia 06/19/2011 Crohn's disease, small and large intestine with 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, severe duodenit is 03/05/2011 Gastric ulcer 03/05/2011 Weight loss 02/04/2011 Diarrhea 02/04/2011 Heartburn 02/04/2011 Anemia 02/04/2011 Abdominal pain, acute, right upper quadrant 02/04/2011 Nausea 02/04/2011 - Active Crohn's disease. Unable to wean steroids from 30 mg bid per mother. - currently doing well after Infliximab. - Low Vit D level. RECOMMENDATIONS/PLAN: - OK to d/c to home from GI point view. - GI office will schedule the following Infliximab infusions. - Would continue Prednisone 30 mg bid for now. - Call Dr. Foster (primary GI provider) to discuss steroid weaning and future prescription ea rly next week. - Continue home azathioprine and mesalamine. - Vit D 50,000 weekly x 3 months for Vit D deficiency. MARIUSZ JULIAN MD [facility] [address] [facility] [address] [facility] [address] [facility] DEPARTMENT: [id number]- PED GASTRO [facility] Place of Service: [id number] - Date of Service: 06/22/2011 CSN: [id number] Suggested Level of Care: 90527 - Subsequent -1 HPI, 1 ROS, 2-4 Exam, Mod D.M., 25 Min Date: June 22, 2011 Mariusz Trammell MD - 012 10:05 AM PDT INPATIENT PEDIATRIC GASTROENTEROLOGY PROGRESS NOTE ATTENDING: Dudley Collazo MD AUTHOR: MARIUSZ JULIAN MD Jeremias Adames is a 15 year old male with Crohn's Disease with a flare up. INTERVAL HISTORY: - Started Infliximab yesterday. - Overall feeling much better. - No nausea, abd pain, diarrhea, or blood in stool. PHYSICAL EXAM: Last entered Vitals Ht 167 cm (5' 5.75") (42 %ile), Wt 53.6 kg (118 lbs 2.7 oz) (44 %ile), Weight for age(%) 4 3.71%, BMI for age(%) 47.43%, Length for age(%) 40.95%, BP 132/78, Pulse 76, Temperature 3 6.1 C (97 F), RR 18, SpO2 100%, BMI 19.22 kg/(m^2). Vital Sign Range Temp Av.3 C (97.4 F) Min: 36 C (96.8 F) Max: 37.1 C (98.8 F) Pulse Av Min: 56 Max: 101 Resp Av Min: 16 Max: 20 Systolic (24hrs), Av mmHg, Min:124 mmHg, Max:141 mmHg Diastolic (24hrs), Av mmHg, Min:67 mmHg, Max:80 mmHg SpO2 Av.1 % Min: 98 % Max: 100 % I/O Summary Intake/Output Summary (Last 24 hours) at 06/21/11 1006 Last data filed at 06/21/11 0900 Gross per 24 hour Intake 2078 ml Output 550 ml Net 1528 ml General Appearance: Playful, alert, NAD Head: NC Eyes,Ears, Nose, Throat: No icterus, MMM Respiratory: CTAB Cardiovascular: RRR Gastrointestinal: soft, NTND, +BS Rectal: Deferred Lymphatic: No LAD Musculoskeletal: Normal Skin: No rash Neurologic: Grossly normal Medications: Current Inpatient Medications Medication Dose Route Frequency acetaminophen (aka TYLENOL) tablet 500 mg 500 mg Oral Q4H PRN azaTHIOprine (aka IMURAN) tablet 150 mg 150 mg Oral DAILY diphenhydrAMINE (aka BENADRYL) injection 50 mg 1 mg/kg (Dosing Weight) Intravenous PRN EPINEPHrine (aka ADRENALIN) injection 0.3 mg 0.3 mg Subcutaneous PRN hydrocortisone sodium succinate (PF) (aka SOLU-CORTEF) injection 50 mg 50 mg Intraveno us PRN lidocaine (aka LMX 4) 4 % cream Topical PRN mesalamine EC (aka ASACOL) tablet 1,200 mg 1,200 mg Oral BID methylPREDNISolone sod succ (aka SOLU-MEDROL) injection 30 mg 30 mg Intravenous BID metronidazole (aka FLAGYL) oral dose 125 mg 125 mg Oral BID omeprazole (aka PRILOSEC) capsule 20 mg 20 mg Oral DAILY ondansetron (aka ZOFRAN) tablet 8 mg 8 mg Oral Q12H PRN Facility-Administered Medications Ordered in Other Encounters Medication Dose Route Frequency alfentanil (aka ALFENTA) injection INTRAPROCEDURE PRN lactated ringers IV PRN midazolam (aka VERSED) injection INTRAPROCEDURE PRN propofol (aka DIPRIVAN) injection PRN propofol INTRAPROCEDURE PRN LAB DATA: Results for JEREMIAS ADAMES ( ) as of 06/21/2011 10:09 Ref. Range 06/19/2011 13:11 SODIUM, PLASMA (LAB) Latest Range: 134-143 mmol/L 139 POTASSIUM, PLASMA (LAB) Latest Range: 3.4-5.0 mmol/L 4.2 CHLORIDE, PLASMA (LAB) Latest Range: 97-108 mmol/L 102 TOTAL CO2, PLASMA (LAB) Latest Range: 22-29 mmol/L 29 ANION GAP Latest Range: 4-16 8 ANION GAP(ALB CORRECTED) Latest Range: 4-11 mmol/L 9 BUN, PLASMA (LAB) Latest Range: 6-20 mg/dL 5 (L) CREATININE PLASMA (LAB) Latest Range: 0.46-0.81 mg/dL 0.60 GLUCOSE, PLASMA (LAB) Latest Range: 60-99 mg/dL 101 (H) CALCIUM, PLASMA (LAB) Latest Range: 8.6-10.2 mg/dL 9.0 AST(SGOT) Latest Range: 18-36 U/L 27 ALT (SGPT) Latest Range: 13-48 U/L 24 ALK PHOS Latest Range: 110-440 U/L 116 BILIRUBIN TOTAL Latest Range: 0.3-1.2 mg/dL 0.6 TOTAL PROTEIN, PLASMA (LAB) Latest Range: 5.9-8.2 g/dL 6.3 ALBUMIN, PLASMA (LAB) Latest Range: 3.5-4.7 g/dL 3.3 (L) SEDIMENTATION RATE Latest Range: < 16 mm/hr 16 (H) C-REACTIVE PROTEIN Latest Range: < 0.6 mg/dl 5.6 (H) VITAMIN D 25 HYDROXY Latest Range: > 19 ng/mL 17 (L) WHITE CELL COUNT Latest Range: 4.9-15.5 K/cu mm 10.6 RED CELL COUNT Latest Range: 4.50-5.30 M/cu mm 5.32 (H) HEMOGLOBIN Latest Range: 13.0-16.0 g/dL 12.2 (L) HEMATOCRIT Latest Range: 37.0-49.0 % 37.6 MCV Latest Range: 80.0-96.0 fL 70.6 (L) MCHC Latest Range: 33.4-35.5 g/dL 32.4 (L) RDW Latest Range: 11.5-15.0 % 17.4 (H) PLATELET COUNT Latest Range: 150-400 K/cu mm 314 NEUTROPHIL % Latest Range: 41-76 % 87 (H) LYMPHOCYTE % Latest Range: 7-41 % 7 MONOCYTE % Latest Range: 3-13 % 5 EOS % Latest Range: < 7 % 1 BASO % Latest Range: < 3 % 0 NEUTROPHIL # Latest Range: 2.8-11.1 K/cu mm 9.2 LYMPHOCYTE # Latest Range: 0.4-3.2 K/cu mm 0.7 MONOCYTE # Latest Range: 0.3-1.3 K/cu mm 0.5 EOS # Latest Range: < 0.4 K/cu mm 0.1 BASO # Latest Range: < 0.3 0.0 RBC MORPHOLOGY No range found Anisocytosis ... RED CELL COMMENTS No range found Spherocytes present. HEP B SURFACE AB QUAL, SERUM Latest Range: Negative Negative ASSESSMENT: Patient Active Problem List Diagnoses Date Noted Anorexia 06/19/2011 Crohn's disease, small and large intestine with 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, severe duodenit is 03/05/2011 Gastric ulcer 03/05/2011 Weight loss 02/04/2011 Diarrhea 02/04/2011 Heartburn 02/04/2011 Anemia 02/04/2011 Abdominal pain, acute, right upper quadrant 02/04/2011 Nausea 02/04/2011 - Active Crohn's disease does not respond to steroids. [place] better after Infliximab. - Low Vit D level. RECOMMENDATIONS/PLAN: - Continue current care. - If continues to do well, OK to d/c to home from GI point view. - GI office will schedule the following Infliximab infusions. - Vit D 50,000 weekly x 3 months for Vit D deficiency. MARIUSZ JULIAN MD [facility] [address] [facility] [address] [facility] [address] [facility] DEPARTMENT: [id number]- [facility] Place of Service: [id number] - Date of Service: 06/21/2011 CSN: [id number] Suggested Level of Care: 07479 - Subsequent -2 HPI, 2 ROS, 1 PFSH, 5-7 Ex, Hi D.M., 35 Min Date: June 21, 2011 Julee Hdez MD - 05/25 6:49 AM PDTKP Staff Addendum I performed a history and physical examination of the patient and discussed his management with the resident. I reviewed the resident s note and agree with the documented findings a nd plan of care. Additionally: Jeremias feels perfectly well today! No concerns or complaints. Tolerated Remicaide well y esterday. BPs continue to run high (has had nml ones at -- so suspect steroids....) Exam completely nonfocal incl abd exam -- very soft, nontender throughout, no hsm or masses . Vit D has come back low at 17. Zinc is still pending. A/P> 15 yo with Crohn's disease, admitted for flare, doing well s/p first remicaide infusion yes terday. Continues on Solumedrol as well as outpt regimen of asacol, flagyl, imuran, prilosec. Start vit D 50,000 IU qweek. Peds GI assistance appreciated. Will plan for likely DC home tomorrow on prednisone 30 mg bid with further f/u / remicaide infusions per peds GI. Megha SOTO reHans pitts Md - 06/21/2011 6:49 AM PDT Pediatric Progress Note ID: Jeremias Adames is a 15 y.o. Male w/Crohn's disease here with a flare starting about 2 w eeks with more stool output and some bloody stools, admitted for initiation of Remicade and IV solumedrol treatment. Subjective: --afebrile --some high systolic blood pressures --received first dose Remicade yesterday --no stools since yesterday --feels well Objective: Last Vitals: BP 124/75 | Pulse 56 | Temp 36.5 C (97.7 F) | RR 18 | Ht 167 cm (5' 5.75") | Wt 53.6 kg (118 lb 2.7 oz) | SpO2 99% | BMI 19.22 kg/(m^2) 24 Hour Vital Min/Max: Systolic (24hrs), Av mmHg, Min:120 mmHg, Max:141 mmHg Diastolic (24hrs), Av mmHg, Min:67 mmHg, Max:80 mmHg Pulse Min: 56 Max: 101 Temp Min: 36 C (96.8 F) Max: 37.1 C (98.8 F) Resp Min: 16 Max: 20 SpO2 Min: 98 % Max: 100 % Intake/Output Summary (Last 24 hours) at 06/21/11 0651 Last data filed at 06/21/11 0600 Gross per 24 hour Intake 2228 ml Output 550 ml Net 1678 ml General: alert, appropriate, cooperative CV: RRR, no murmurs, cap refill <2 sec Pulm: CTAB, no c/w. No retractions, grunting or flaring Abd: soft, non distended, no tenderness to palpation Ext: no edema, 2+ peripheral pulses Neuro: alert, oriented Pertinent Medications: Current Inpatient Medications Medication Dose Route Frequency acetaminophen (aka TYLENOL) tablet 500 mg 500 mg Oral Q4H PRN azaTHIOprine (aka IMURAN) tablet 150 mg 150 mg Oral DAILY diphenhydrAMINE (aka BENADRYL) injection 50 mg 1 mg/kg (Dosing Weight) Intravenous PRN EPINEPHrine (aka ADRENALIN) injection 0.3 mg 0.3 mg Subcutaneous PRN hydrocortisone sodium succinate (PF) (aka SOLU-CORTEF) injection 50 mg 50 mg Intraveno us PRN lidocaine (aka LMX 4) 4 % cream Topical PRN mesalamine EC (aka ASACOL) tablet 1,200 mg 1,200 mg Oral BID methylPREDNISolone sod succ (aka SOLU-MEDROL) injection 30 mg 30 mg Intravenous BID metronidazole (aka FLAGYL) oral dose 125 mg 125 mg Oral BID omeprazole (aka PRILOSEC) capsule 20 mg 20 mg Oral DAILY ondansetron (aka ZOFRAN) tablet 8 mg 8 mg Oral Q12H PRN Facility-Administered Medications Ordered in Other Encounters Medication Dose Route Frequency alfentanil (aka ALFENTA) injection INTRAPROCEDURE PRN lactated ringers IV PRN midazolam (aka VERSED) injection INTRAPROCEDURE PRN propofol (aka DIPRIVAN) injection PRN propofol INTRAPROCEDURE PRN Pertinent Labs/Studies: Lab Results Component Value Date NA 139 06/19/2011 K 4.2 06/19/2011 CL 102 06/19/2011 BICARB 29 06/19/2011 BUN 5 06/19/2011 CR 0.60 06/19/2011 GLU 101 06/19/2011 CA 9.0 06/19/2011 AST 27 06/19/2011 ALT 24 06/19/2011 AP 116 06/19/2011 TBILI 0.6 06/19/2011 TP 6.3 06/19/2011 ALB 3.3 06/19/2011 DIRBILI <0.1 05/25/2011 CBC with diff last 72 hours (or 3 results) Recent Labs Basename 06/19/11 1311 WBC 10.6 HB 12.2* HCT 37.6 PLT 314 NEUTROPERC 87* BANDPCT -- LYMPHPERC 7 MONOPERC 5 BASOPERC 0 EOSPERC 1 CRP 5.6 Assessment/Plan: 15yo M with recent diagnosis of Crohn's, doing well after 2 days of Solumedrol and receivin g Remicade yesterday. Crohn's: Recently diagnosed early 2011 by scope. Was started on Imuran Feb 2011. last seen peds GI 05/26/11 and increased prednisone as disease was still active, admitted for solumedrol and Remicade. --mesalamine, imuran, solumedrol 30mg BID --next Remicade dose to be scheduled with GI --likely d/c tomorrow and will continue all the same meds with solumedrol changed to predni sone 30mg BID. High blood pressures: likely from solumedrol, have continued to increase slightly. Will con tinue to watch for now. FEN/GI: -Low fiber diet -Lactose intolerant -started on weekly vitamin D 50,000 unit supplement x 3 weeks HANS CAPONE MD Evan Oviedo MD - 4:31 PM PDTI have reviewed the history with the family and examined the patient and I agree with Dr Damon's note. We have formulated the plan together. We discussed potential adverse effects of Remicade with Jeremias and his mother, including i nfections, lymphoma, and allergic reactions, and both Jeremias and his mother wish to start t herapy. EVAN RUBIN MD Pediatric Gastroenterology [facility] DEPARTMENT: [id number]- PED [facility]STR[facility] Place of Service: [id number] - Date of Service: 06/20/2011 CSN: [id number] Suggested Level of Care: 58533 - Subsequent -1 HPI, 1 ROS, 2-4 Exam, Mod D.M., 25 Min Laxmi Bower MD - 06/20/2011 4:31 PM PDT INPATIENT PEDIATRIC GASTROENTEROLOGY PROGRESS NOTE ATTENDING: Dudley Collazo MD AUTHOR: LAXMI DAMON MD Jeremias Adames is a 15 year old male with Crohn's Disease and recent flare admitted for IV methylprednisolone and initiation of infliximab. INTERVAL HISTORY: --Had two stools yesterday that were not well formed, but also were non-bloody. DIET: Low fiber, regular with Boost supplementation. PHYSICAL EXAM: Last entered Vitals Last Vitals: BP 137/73 | Pulse 66 | Temp 36.8 C (98.2 F) | RR 18 | Ht 167 cm (5' 5.75") | Wt 53.6 kg (118 lb 2.7 oz) | SpO2 99% | BMI 19.22 kg/(m^2) 24 Hour Vital Min/Max: Systolic (24hrs), Av mmHg, Min:120 mmHg, Max:141 mmHg Diastolic (24hrs), Av mmHg, Min:66 mmHg, Max:87 mmHg Pulse Min: 66 Max: 101 Temp Min: 36 C (96.8 F) Max: 37 C (98.6 F) Resp Min: 16 Max: 24 SpO2 Min: 98 % Max: 100 % Intake/Output Summary (Last 24 hours) at 06/20/11 1634 Last data filed at 06/20/11 1600 Gross per 24 hour Intake 1585 ml Output 800 ml Net 785 ml Physical examination: General: Well appearing and in no acute distress HEENT: normocephalic, sclerae anicteric, no periorbital edema, mucous membranes moist Cardiac: Regular rate and rhythm, S1 S2 Nl, no M/R/G/. Chest: CTA Bilaterally. Abdomen: Soft, no distention, no masses, no tenderness to palpation, bowel sounds present, no hepatosplenomegaly. Extremities: no clubbing, no edema. Skin: Warm, dry, no rashes or petechiae Neuro: A Medications: Current Inpatient Medications Medication Dose Route Frequency acetaminophen (aka TYLENOL) tablet 500 mg 500 mg Oral Q4H PRN azaTHIOprine (aka IMURAN) tablet 150 mg 150 mg Oral DAILY diphenhydrAMINE (aka BENADRYL) injection 50 mg 1 mg/kg (Dosing Weight) Intravenous PRN EPINEPHrine (aka ADRENALIN) injection 0.3 mg 0.3 mg Subcutaneous PRN hydrocortisone sodium succinate (PF) (aka SOLU-CORTEF) injection 50 mg 50 mg Intraveno us PRN lidocaine (aka LMX 4) 4 % cream Topical PRN mesalamine EC (aka ASACOL) tablet 1,200 mg 1,200 mg Oral BID methylPREDNISolone sod succ (aka SOLU-MEDROL) injection 30 mg 30 mg Intravenous BID metronidazole (aka FLAGYL) oral dose 125 mg 125 mg Oral BID omeprazole (aka PRILOSEC) capsule 20 mg 20 mg Oral DAILY ondansetron (aka ZOFRAN) tablet 8 mg 8 mg Oral Q12H PRN Facility-Administered Medications Ordered in Other Encounters Medication Dose Route Frequency alfentanil (aka ALFENTA) injection INTRAPROCEDURE PRN lactated ringers IV PRN midazolam (aka VERSED) injection INTRAPROCEDURE PRN propofol (aka DIPRIVAN) injection PRN propofol INTRAPROCEDURE PRN LAB DATA: CBC with diff last 72 hours (or 3 results) Recent Labs Basename 06/19/11 1311 WBC 10.6 HB 12.2* HCT 37.6 PLT 314 NEUTROPERC 87* BANDPCT -- LYMPHPERC 7 MONOPERC 5 BASOPERC 0 EOSPERC 1 Recent Labs Basename 06/19/11 1311 05/25/11 1417 04/22/11 1520 NA 139 -- -- K 4.2 -- -- CL 102 -- -- BICARB 29 -- -- BUN 5* -- -- CR 0.60 -- -- GLU 101* -- -- CA 9.0 -- -- AST 27 15 17 ALT 24 9* 13 AP 116 181 173 TBILI 0.6 0.2 0.2 TP 6.3 7.6 6.9 ALB 3.3* 4.3 4.2 ESR 16 Vitamin D 17 Zinc in process ASSESSMENT: Jeremias Adames is a 15 y.o. Male with severe gastritis, ileitis, and colitis w ho has been receiving steroids, azathioprine, mesalamine, and metronidazole and is admitted for IV methylprednisolone and infliximab infusion. Patient Active Problem List Diagnoses Weight loss Diarrhea Heartburn Anemia Abdominal pain, acute, right upper quadrant Nausea Crohn's disease, small and large intestine with 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, severe duodenit is Gastric ulcer Anorexia RECOMMENDATIONS/PLAN: --Please continue home meds --Please continue on methylprednisolone 30 mg BID --Today will be first day of infliximab treatment. Discussed side effects with pt and his mother. Will receive a 300 mg one time dose and then re-evaluate. LAXMI DAMON MD Mesha Leslie - 06/20/2011 11:01 AM PDT Nutrition Note S: Mom reports that Jeremias is usually a good eater at home, less appetite when having a fl are. Drinks [place] Instant Breakfast + 1% milk at home, Mom wondering if she should switc h to 2% or whole milk. Jeremias does not like Boost. Family has not received low fiber diet e ducation before. Takes MVI and chewable Ca supplement at home. O: Jeremias Adames is a 15 y.o. male with Crohn's admitted after having a scope for Crohn's refractory to treatment. He will be admitted to start IV solumedrol and remicade. Ht 167 cm (5' 5.75") (42 %ile), Wt 53.6 kg (118 lbs 2.7 oz) (44 %ile), BMI for age(%) 47.4 3%, BMI 19.22 kg/(m^2). Wt Hx: (05/25) 56.1 kg, (Feb 2011) 111-113 lbs per Mom Labs: Ref. Range 03/10/2011 13:34 VITAMIN B12, SERUM Latest Range: 180-914 pg/ml 287 VIT D, 1,25-DIHYDROXY Latest Range: 20-80 pg/mL 27 Meds: zofran, prilosec, methylprednisolone Diet: Low fiber Pt with Crohn's and unintentional 2.5 kg weight loss over the past month, wt up since . Estimated needs: 5317-3208 calories (DRI), 1.5-2.0 g/kg pro, 2200 ml fluid PLAN: 1. Encourage po, low fiber diet. Sending chocolate CIB + 2% milk BID. 2. Will provide low fiber diet education 3. Rec check 25-OH vitamin D level 4. RD following Mesha Neri RD, LD Pediatric Dietitian [facility] [phone] Pager #: [phone] Dudley Oliva MD - 06/20/2011 8:09 AM PDT [place] [facility] Attending addendum Hosp day # 1 Pt seen, reviewed with family and team. Agree with housestaff notes above. Additional / Interval history crampy belly pain this AM, but better as day went on. Ate lunch well. OBJECTIVE: Vital Signs: BP 137/73 | Pulse 66 | Temp 36.8 C (98.2 F) | RR 18 | Ht 167 cm (5' 5.75") | Wt 53.6 kg (118 lb 2.7 oz) | SpO2 99% | BMI 19.22 kg/(m^2) General - alert, cooperative, NAD Cor - RR no m Lung - no grunting, flaring, retractions. Good aeration and clear to ausc abd: flat, soft, NT, no masses or HSM, BS + Ext- no CCE, arthritis Agree with A/P: Continue same solumedrol, mesalamine, Imuran Begin Remicade Follow with GI Hans Mckinnon Md - 06/20/2011 8:09 AM PDT Pediatric Progress Note ID: Jeremias Adames is a 15 y.o. Male w/Crohn's disease here with a flare starting about 2 w eeks with more stool output and some bloody stools. Subjective: Overnight --afebrile --some high systolic blood pressures --started IV solumedrol --had 2 BMs, both loose. Pain before BM but feels better afterward. No blood. Objective: Last Vitals: BP 133/67 | Pulse 86 | Temp 36.2 C (97.2 F) | RR 18 | Ht 167 cm (5' 5.75") | Wt 53.6 kg (118 lb 2.7 oz) | SpO2 99% | BMI 19.22 kg/(m^2) 24 Hour Vital Min/Max: Systolic (24hrs), Av mmHg, Min:120 mmHg, Max:136 mmHg Diastolic (24hrs), Av mmHg, Min:63 mmHg, Max:87 mmHg Pulse Min: 67 Max: 101 Temp Min: 36 C (96.8 F) Max: 37 C (98.6 F) Resp Min: 16 Max: 24 SpO2 Min: 97 % Max: 100 % Intake/Output Summary (Last 24 hours) at 06/20/11 1526 Last data filed at 06/20/11 1440 Gross per 24 hour Intake 1438 ml Output 950 ml Net 488 ml General: alert, appropriate, cooperative CV: RRR, no murmurs, cap refill <2 sec Pulm: CTAB, no c/w. No retractions, grunting or flaring Abd: soft, non distended, no tenderness to palpation Ext: no edema, 2+ peripheral pulses Neuro: alert, oriented Pertinent Medications: Current Inpatient Medications Medication Dose Route Frequency acetaminophen (aka TYLENOL) tablet 500 mg 500 mg Oral Q4H PRN azaTHIOprine (aka IMURAN) tablet 150 mg 150 mg Oral DAILY lidocaine (aka LMX 4) 4 % cream Topical PRN mesalamine EC (aka ASACOL) tablet 1,200 mg 1,200 mg Oral BID methylPREDNISolone sod succ (aka SOLU-MEDROL) injection 30 mg 30 mg Intravenous BID metronidazole (aka FLAGYL) oral dose 125 mg 125 mg Oral BID omeprazole (aka PRILOSEC) capsule 20 mg 20 mg Oral DAILY ondansetron (aka ZOFRAN) tablet 8 mg 8 mg Oral Q12H PRN Facility-Administered Medications Ordered in Other Encounters Medication Dose Route Frequency alfentanil (aka ALFENTA) injection INTRAPROCEDURE PRN lactated ringers IV PRN midazolam (aka VERSED) injection INTRAPROCEDURE PRN propofol (aka DIPRIVAN) injection PRN propofol INTRAPROCEDURE PRN Pertinent Labs/Studies: Lab Results Component Value Date NA 139 06/19/2011 K 4.2 06/19/2011 CL 102 06/19/2011 BICARB 29 06/19/2011 BUN 5 06/19/2011 CR 0.60 06/19/2011 GLU 101 06/19/2011 CA 9.0 06/19/2011 AST 27 06/19/2011 ALT 24 06/19/2011 AP 116 06/19/2011 TBILI 0.6 06/19/2011 TP 6.3 06/19/2011 ALB 3.3 06/19/2011 DIRBILI <0.1 05/25/2011 CBC with diff last 72 hours (or 3 results) Recent Labs Basename 06/19/11 1311 WBC 10.6 HB 12.2* HCT 37.6 PLT 314 NEUTROPERC 87* BANDPCT -- LYMPHPERC 7 MONOPERC 5 BASOPERC 0 EOSPERC 1 CRP 5.6 Assessment/Plan: Crohn's: Recently diagnosed early 2011. Was started on Imuran Feb 2011. last seen peds GI and increased prednisone as disease was still active. --mesalamine, imuran, solumedrol 30mg BID --to start Remicade High blood pressures: prednisone vs pain. Will continue to watch for now. FEN/GI: -Low fiber diet -Lactose intolerant HANS CAPONE MD documented in this encounter Plan of Treatment + +------+--------+ + + | Name | Type | Priori | Associated Diagnoses | Date/Time | | | | ty | | | + +------+--------+ + + | DIFFERENTIAL | Lab | Routin | | 06/19/2011 10:16 AM | | | | e | | PDT | + +------+--------+ + + + +------+--------+ + + | Name | Type | Priori | Associated Diagnoses | Order Schedule | | | | ty | | | + +------+--------+ + + | DIFFERENTIAL | Lab | Routin | | One Time for 1 | | | | e | | Occurrences starting | | | | | | 06/19/2011 until | | | | | | 06/19/2011 | + +------+--------+ + + documented as of this encounter Procedures + +--------+ + + + | Procedure Name | Priori | Date/Time | Associated Diagnosis | Comments | | | ty | | | | + +--------+ + + + | DIFFERENTIAL | Routin | 06/19/2011 | | Results for this | | | e | 1:11 PM | | procedure are in the | | | | PDT | | results section. | + +--------+ + + + | CBC, WITH | Routin | 06/19/2011 | | Results for this | | DIFFERENTIAL | e | 1:11 PM | | procedure are in the | | | | PDT | | results section. | + +--------+ + + + | VITAMIN D, | Routin | 06/19/2011 | | Results for this | | 25-HYDROXY, SERUM | e | 1:11 PM | | procedure are in the | | | | PDT | | results section. | + +--------+ + + + | ZINC, SERUM | Routin | 06/19/2011 | | Results for this | | | e | 1:11 PM | | procedure are in the | | | | PDT | | results section. | + +--------+ + + + | COMPLETE METABOLIC | Routin | 06/19/2011 | | Results for this | | SET | e | 1:11 PM | | procedure are in the | | (NA,K,CL,CO2,BUN,CRE | | PDT | | results section. | | AT,GLUC,CA,AST,ALT,B | | | | | | LAYLA TOTAL,ALK | | | | | | PHOS,ALB,PROT TOTAL) | | | | | + +--------+ + + + | C-REACTIVE PROTEIN | Routin | 06/19/2011 | | Results for this | | | e | 1:11 PM | | procedure are in the | | | | PDT | | results section. | + +--------+ + + + | SEDIMENTATION RATE | Routin | 06/19/2011 | | Results for this | | | e | 1:11 PM | | procedure are in the | | | | PDT | | results section. | + +--------+ + + + | HEPATITIS B SURFACE | Routin | 06/19/2011 | | Results for this | | AB QUAL, SERUM | e | 1:11 PM | | procedure are in the | | | | PDT | | results section. | + +--------+ + + + | COLONOSCOPY | Electi | 06/19/2011 | Regional enteritis | | | | ve | 8:44 AM | of small intestine | | | | Surgic | PDT | with large intestine | | | | al | | (HCC) Diarrhea | | | | | | Nausea alone | | + +--------+ + + + | MD COLONOSCOPY, | Routin | 06/19/2011 | | Results for this | | FLEX, W/BIOPSY | e | 7:54 AM | | procedure are in the | | | | PDT | | results section. | + +--------+ + + + | MD UPPER GI | Routin | 06/19/2011 | | Results for this | | ENDOSCOPY,BIOPSY | e | 7:54 AM | | procedure are in the | | | | PDT | | results section. | + +--------+ + + + | ORDERS OTHER | | 06/19/2011 | | Results for this | | | | 12:00 AM | | procedure are in the | | | | PDT | | results section. | + +--------+ + + + | SURGICAL PATHOLOGY | Routin | 06/19/2011 | | Results for this | | | e | | | procedure are in the | | | | | | results section. | + +--------+ + + + documented in this encounter Results ADMINISTER FLU VACCINE IF INDICATED BY SCREENING (01/30/2012 10:30 AM PST) + + + | Narrative | Performed At | + + + | Tania Landrum MD 01/30/2012 10:30 AM Pediatric | | | Gastroenterology Procedure Note Jeremias Adames Age/Gender 16 | | | y.o. male Date of Procedure: | | | 01/30/2012 Procedurist: Tania Foster M.D. Procedure: | | | Endoscopy and colonoscopy with biopsies Sedation: General | | | anesthesia; see anesthesiologist's record for details. Consent: | | | Risk/benefits discussed, consent obtained from family by | | | physician. Co-Morbidities: none Operative Description: | | | Identification pause performed per [facility] protocol. Patient placed in | | | left lateral decubitus position. After inserting an oral | | | mouthpiece, and sedation deemed adequate, a GIF 160 endoscope was | | | passed under direct visualization into the esophagus, stomach which | | | was emptied of fluid and into the small bowel. Small bowel mucosa | | | appeared normal, and multiple biopsies were taken. Endoscope | | | withdrawn into the stomach which appeared normal. Histologic | | | biopsies were taken of the antrum and culture for h. Pylori. | | | Retroflexion revealed a snug lower esophageal sphincter. | | | Stomach emptied and scope pulled up into the esophagus that | | | appeared normal. Biopsies taken; stomach emptied and scope | | | removed. Hemostasis assure of all biopsy sites. Patient then | | | placed in position for a colonoscopy. Perianal area inspected | | | and revealed a skin tag at 6 o'clock. The PCF colonoscope was passed | | | under direct visualization into colon and advanced to the ileum. | | | Prep and visibility were good in the distal colon, fair in the | | | proximal. The ileal mucosa appeared normal, colonic mucosa | | | appeared normal. Biopsies taken and hemostasis assured as scope | | | was gradually withdrawn. Patient tolerated the procedure | | | well and was taken to the recovery room in good condition. | | | Biopsies taken: Esophagus: 2 Gastric Antrum: 2 Duodenum: 8 H. | | | Pylori ARSEN test: done Ileum: 4 Right colon: 4 Transverse colon: | | | 4 Left colon: 4 Unexpected events: none Estimated Blood Loss: | | | < 4 cc Findings: visually normal egd and colon Discharge Meds: | | | Please resume prior medications. Condition at time of transfer to | | | PACU: good Disposition / Follow-up: Discharge to home with parents | | | when patient meets PACU criteria. Follow-up with pediatric | | | gastroenterology as scheduled. Images of procedure labeled and given | | | to family. TANIA FOSTER MD [facility] [address] | | | [id number] [place] [address] cc: Tracey | | | MD Gudelia [facility] DEPARTMENT: [phone] [facility] GA[facility] | | | Place of Service: - Date of Service: 01/30/2012 MEDICAL | | | RECORD NUMBER [id number] CSN: [id number] Suggested Level of Care: | | | [address]0985 - Colonoscopy w/Biopsy and 03791 EGD with biopsies | | + + + + + | Procedure Note | + + | Tania Foster MD - 01/30/2012 9:20 AM PST Formatting of this note might be | | different from the original.Pediatric Gastroenterology Procedure Note Jeremias H | | OughAge/Gender 16 y.o. male Date of Procedure: | | 01/30/2012Procedurist: Tania Foster M.D.Procedure: Endoscopy and colonoscopy with | | biopsiesSedation: General anesthesia; see anesthesiologist's record for | | details.Consent: Risk/benefits discussed, consent obtained from family by | | physician.Co-Morbidities: noneOperative Description: Identification pause performed per | | [facility] protocol.Patient placed in left lateral decubitus position.After inserting an oral | | mouthpiece, and sedation deemed adequate, a GIF 160 endoscope was passed under direct | | visualization into the esophagus, stomach which was emptied of fluid and into the small | | bowel. Small bowel mucosa appeared normal, and multiple biopsies were taken. | | Endoscope withdrawn into the stomach which appeared normal. Histologic biopsies were | | taken of the antrum and culture for h. Pylori. Retroflexion revealed a snug lower | | esophageal sphincter. Stomach emptied and scope pulled up into the esophagus that | | appeared normal. Biopsies taken; stomach emptied and scope removed. Hemostasis assure | | of all biopsy sites.Patient then placed in position for a colonoscopy. Perianal area | | inspected and revealed a skin tag at 6 o'clock. The PCF colonoscope was passed under | | direct visualization into colon and advanced to the ileum. Prep and visibility were | | good in the distal colon, fair in the proximal. The ileal mucosa appeared normal, | | colonic mucosa appeared normal. Biopsies taken and hemostasis assured as scope was | | gradually withdrawn. Patient tolerated the procedure well and was taken to the | | recovery room in good condition.Biopsies taken:Esophagus: 2Gastric Antrum: 2Duodenum: | | 8H. Pylori ARSEN test: doneIleum: 4Right colon: 4Transverse colon: 4Left colon: | | 4Unexpected events: noneEstimated Blood Loss: < 4 ccFindings: visually normal egd and | | colonDischarge Meds: Please resume prior medications.Condition at time of transfer to | | PACU: goodDisposition / Follow-up: Discharge to home with parents when patient meets | | PACU criteria. Follow-up with pediatric gastroenterology as scheduled. Images of | | procedure labeled and given to family.[facility]OSTER [facility] [address] | | [id number], [place] [phone]: Tracey Galeas MDRIGO DEPARTMENT: | | [phone]- PED GASTR[facility] Place of Service: - OPDate of Service: | | 01/30/2012MEDICAL RECORD NUMBER [id number]: [id number] Level of Care: 16068 - | | Colonoscopy w/Biopsy and 45903 EGD with biopsies | |Gastric Antrum: 2 | |Duodenum: 8 | |H. Pylori ARSEN test: done | | | |Ileum: 4 | |Right colon: 4 | |Transverse colon: 4 | |Left colon: 4 | | | | | |Unexpected events: none | |Estimated Blood Loss: < 4 cc | |Findings: visually normal egd and colon | | | |Discharge Meds: Please resume prior medications. | |Condition at time of transfer to PACU: good | |Disposition / Follow-up: Discharge to home with parents when patient meets PACU criteria. F ollow-up with pediatric gastroenterology as scheduled. Images of procedure labeled and given to family. | | | | | | | |TANIA FOSTER MD | |[facility] | |[address] | |[id number] | |[place] [address] | |[phone] | | | |cc: Tracey Galeas MD | | | |[facility] DEPARTMENT: [id number]- PED GASTR[facility] | |Place of Service: [id number] - OP | |Date of Service: 01/30/2012 | | | |CSN: [id number] | |Suggested Level of Care: 45969 - Colonoscopy w/Biopsy and 42852 EGD with biopsies | + + HEPATITIS B SURFACE AB QUAL, SERUM (06/19/2011 1:11 PM PDT) + + + + + + | Component | Value | Ref Range | Performed | Pathologist | | | | | At | Signature | + + + + + + | HEP B | Negative | Negative | [facility] | | | SURFACE AB | | | [facility]AL | | | QUAL, SERUM | | | LABORATORY | | + + + + + + + + | Specimen | + + | | + + + + + | Narrative | Performed At | + + + | [facility] | [facility] | | [place] [place] [address] | REGIONAL | | [place] [address] | LABORATORY | + + + + + + + + | Performing | Address | City/State/Zipcode | Phone Number | | Organization | | | | + + + + + | [facility] | [address] | [place] [address] | | | LABORATORY | | | | + + + + + DIFFERENTIAL (06/19/2011 1:11 PM PDT) + +--------+ + + + | Component | Value | Ref Range | Performed | Pathologist | | | | | At | Signature | + +--------+ + + + | NEUTROPHIL | 87 (H) | 41 - 76 % | [facility] | | | % | | | DEPARTMENT | | | | | | OF | | | | | | PATHOLOGY | | + +--------+ + + + | LYMPHOCYTE | 7 | 7 - 41 % | [facility] | | | % | | | DEPARTMENT | | | | | | OF | | | | | | PATHOLOGY | | + +--------+ + + + | MONOCYTE % | 5 | 3 - 13 % | [facility] | | | | | | DEPARTMENT | | | | | | OF | | | | | | PATHOLOGY | | + +--------+ + + + | EOS % | 1 | <7 % | [facility] | | | | | | DEPARTMENT | | | | | | OF | | | | | | PATHOLOGY | | + +--------+ + + + | BASO % | 0 | <3 % | [facility] | | | | | | DEPARTMENT | | | | | | OF | | | | | | PATHOLOGY | | + +--------+ + + + | NEUTROPHIL | 9.2 | 2.8 - 11.1 K/cu | [facility] | | | # | | mm | DEPARTMENT | | | | | | OF | | | | | | PATHOLOGY | | + +--------+ + + + | LYMPHOCYTE | 0.7 | 0.4 - 3.2 K/cu | [facility] | | | # | | mm | DEPARTMENT | | | | | | OF | | | | | | PATHOLOGY | | + +--------+ + + + | MONOCYTE # | 0.5 | 0.3 - 1.3 K/cu | [facility] | | | | | mm | DEPARTMENT | | | | | | OF | | | | | | PATHOLOGY | | + +--------+ + + + | EOS # | 0.1 | <0.4 K/cu mm | [facility] | | | | | | DEPARTMENT | | | | | | OF | | | | | | PATHOLOGY | | + +--------+ + + + | BASO # | 0.0 | <0.3 | [facility] | | | | | | DEPARTMENT | | | | | | OF | | | | | | PATHOLOGY | | + +--------+ + + + + + | Specimen | + + | | + + + + + | Narrative | Performed At | + + + | * Corrected 06/19/11 15:48: MILTON COMMENTS, prev report: Not | [facility] | | reported | DEPARTMENT OF | | | PATHOLOGY | + + + + + + + + | Performing | Address | City/State/Zipcode | Phone Number | | Organization | | | | + + + + + | [facility] DEPARTMENT OF | [address] | [place] [address] | | | PATHOLOGY | [address] | | | + + + + + VITAMIN D, 25-HYDROXY, SERUM (06/19/2011 1:11 PM PDT) + + + + + + | Component | Value | Ref Range | Performed | Pathologist | | | | | At | Signature | + + + + + + | VITAMIN D | 17 (L)Comment: | >19 ng/mL | [facility] | | | 25 HYDROXY | REFERENCE INTERVAL: | | DEPARTMENT | | | | Vitamin D, 25-Hydroxy | | OF | | | | 0-17 years: | | PATHOLOGY | | | | Deficiency: less than 20 | | | | | | ng/mL Optimum | | | | | | level: greater than or | | | | | | equal to 20 ng/mL* | | | | | [...] | + + + + + | [facility] | [address] | [place] [address] | | | PATHOLOGY | [address] | | | + + + + + ZINC, SERUM (06/19/2011 1:11 PM PDT) + + + + + + | Component | Value | Ref Range | Performed | Pathologist | | | | | At | Signature | + + + + + + | ZINC SERUM | 71Comment: INTERPRETIVE | 60 - 120 ug/dL | [facility] | | | | INFORMATION: Zinc, Serum | | REG UNIV | | | | Circulating zinc | | PTH - [facility] | | | | concentrations are | | | | | | dependent on | | | | | | albuminstatus and are | | | | | | depressed with | | | | | | malnutrition. Zinc may | | | | | | alsobe lowered with | | | | | | infection, inflammation, | | | | | | stress, | | | | | | oralcontraceptives, and | | | | | | . Zinc may be | | | | | | elevated withzinc | | | | | | supplementation or | | | | | | fasting. Elevated | | | | | | zincconcentrations may | | | | | | interfere with copper | | | | | | absorption.Performed by | | | | | | [facility], | | | | | | | | | | | | [address] | | | | | | [place] [place] [address] | | | | | | [phone] | | | | | | | | | | | | [email or web address], | | | | | | Lyla Serrano MD - | | | | | | Lab. Director | | | | + + + + + + + + | Specimen | + + | Blood - Blood | + + + + + + + | Performing | Address | City/State/[facility] | Phone Number | | Organization | | | | + + + + + | [facility] | [address] | [place], [place] | | | UNIV P[facility] | | [phone] | | + + + + + CBC, WITH DIFFERENTIAL (06/19/2011 1:11 PM PDT) + + + + + + | Component | Value | Ref Range | Performed | Pathologist | | | | | At | Signature | + + + + + + | WHITE CELL | 10.6 | 4.9 - 15.5 K/cu | [facility] | | | COUNT | | mm | DEPARTMENT | | | | | | OF | | | | | | PATHOLOGY | | + + + + + + | RED CELL | 5.32 (H) | 4.50 - 5.30 | [facility] | | | COUNT | | M/cu mm | DEPARTMENT | | | | | | OF | | | | | | PATHOLOGY | | + + + + + + | HEMOGLOBIN | 12.2 (L) | 13.0 - 16.0 | [facility] | | | | | g/dL | DEPARTMENT | | | | | | OF | | | | | | PATHOLOGY | | + + + + + + | HEMATOCRIT | 37.6 | 37.0 - 49.0 % | [facility] | | | | | | DEPARTMENT | | | | | | OF | | | | | | PATHOLOGY | | + + + + + + | MCV | 70.6 (L) | 80.0 - 96.0 fL | [facility] | | | | | | DEPARTMENT | | | | | | OF | | | | | | PATHOLOGY | | + + + + + + | MCHC | 32.4 (L) | 33.4 - 35.5 | [facility] | | | | | g/dL | DEPARTMENT | | | | | | OF | | | | | | PATHOLOGY | | + + + + + + | RDW | 17.4 (H) | 11.5 - 15.0 % | [facility] | | | | | | DEPARTMENT | | | | | | OF | | | | | | PATHOLOGY | | + + + + + + | PLATELET | 314 | 150 - 400 K/cu | [facility] | | | COUNT | | mm | DEPARTMENT | | | | | | OF | | | | | | PATHOLOGY | | + + + + + + | RED CELL | Spherocytes present. | | [facility] | | | COMMENTS | | | DEPARTMENT | | | | | | OF | | | | | | PATHOLOGY | | + + + + + + | RBC | Anisocytosis + | | [facility] | | | MORPHOLOGY | | | DEPARTMENT | | | | | | OF | | | | | | PATHOLOGY | | | | | | | | | | | | | | | | | | | | | | | | | | | | | | | | | | Polychromasia + | | | | | | | | | | | | | | | | | | | | | | | | | | | | | | | | | | | | | | | | | | | | | | | | | | | | | | Ovalocytes + | | | | + + + + + + + + | Specimen | + + | Blood - Blood | + + + + + | Narrative | Performed At | + + + | * Corrected 06/19/11 15:48: MILTON HORNE, prev report: Not | [facility] | | reported | DEPARTMENT OF | | | PATHOLOGY | + + + + + + + + | Performing | Address | City/State/Zipcode | Phone Number | | Organization | | | | + + + + + | [facility] DEPARTMENT OF | [address] | [place] [address] | | | PATHOLOGY | [address] | | | + + + + + C-REACT PRTN (FOR INFLAMMATION) (06/19/2011 1:11 PM PDT) + +---------+ + + + | Component | Value | Ref Range | Performed | Pathologist | | | | | At | Signature | + +---------+ + + + | C-REACTIVE | 5.6 (H) | <0.6 mg/dl | [facility] | | | PROTEIN | | | REGIONAL | | | | | | LABORATORY | | + +---------+ + + + + + | Specimen | + + | Blood - Blood | + + + + + | Narrative | Performed At | + + + | [facility] | [facility] | | [facility] [place] [address] | REGIONAL | | [place] [address] | LABORATORY | + + + + + + + + | Performing | Address | City/State/Zipcode | Phone Number | | Organization | | | | + + + + + | [facility] | [phone] | [place] [address] | | | LABORATORY | | | | + + + + + SEDIMENTATION RATE (06/19/2011 1:11 PM PDT) + +--------+ + + + | Component | Value | Ref Range | Performed | Pathologist | | | | | At | Signature | + +--------+ + + + | SEDIMENTATI | 16 (H) | <16 mm/hr | [facility] | | | ON RATE | | | DEPARTMENT | | | | | | OF | | | | | | PATHOLOGY | | + +--------+ + + + + + | Specimen | + + | Blood - Blood | + + + + + + + | Performing | Address | City/State/Zipcode | Phone Number | | Organization | | | | + + + + + | [facility] | [address] | [place] [address] | | | PATHOLOGY | [address] | | | + + + + + COMPLETE METABOLIC SET (NA,K,CL,CO2,BUN,CREAT,GLUC,CA,AST,ALT,BILI TOTAL,ALK PHOS,ALB,PROT TOTAL) (06/19/2011 1:11 PM PDT) + +---------+ + + + | Component | Value | Ref Range | Performed | Pathologist | | | | | At | Signature | + +---------+ + + + | GLUCOSE, | 101 (H) | 60 - 99 mg/dL | [facility] | | | PLASMA | | | DEPARTMENT | | | (LAB) | | | OF | | | | | | PATHOLOGY | | + +---------+ + + + | BUN, PLASMA | 5 (L) | 6 - 20 mg/dL | [facility] | | | (LAB) | | | DEPARTMENT | | | | | | OF | | | | | | PATHOLOGY | | + +---------+ + + + | CREATININE | 0.60 | 0.46 - 0.81 | [facility] | | | PLASMA | | mg/dL | DEPARTMENT | | | (LAB) | | | OF | | | | | | PATHOLOGY | | + +---------+ + + + | TOTAL | 6.3 | 5.9 - 8.2 g/dL | [facility] | | | PROTEIN, | | | DEPARTMENT | | | PLASMA | | | OF | | | (LAB) | | | PATHOLOGY | | + +---------+ + + + | ALBUMIN, | 3.3 (L) | 3.5 - 4.7 g/dL | [facility] | | | PLASMA | | | DEPARTMENT | | | (LAB) | | | OF | | | | | | PATHOLOGY | | + +---------+ + + + | CALCIUM, | 9.0 | 8.6 - 10.2 | [facility] | | | PLASMA | | mg/dL | DEPARTMENT | | | (LAB) | | | OF | | | | | | PATHOLOGY | | + +---------+ + + + | BILIRUBIN | 0.6 | 0.3 - 1.2 mg/dL | [facility] | | | TOTAL | | | DEPARTMENT | | | | | | OF | | | | | | PATHOLOGY | | + +---------+ + + + | ALK PHOS | 116 | 110 - 440 U/L | [facility] | | | | | | DEPARTMENT | | | | | | OF | | | | | | PATHOLOGY | | + +---------+ + + + | AST(SGOT) | 27 | 18 - 36 U/L | [facility] | | | | | | DEPARTMENT | | | | | | OF | | | | | | PATHOLOGY | | + +---------+ + + + | SODIUM, | 139 | 134 - 143 | [facility] | | | PLASMA | | mmol/L | DEPARTMENT | | | (LAB) | | | OF | | | | | | PATHOLOGY | | + +---------+ + + + | POTASSIUM, | 4.2 | 3.4 - 5.0 | [facility] | | | PLASMA | | mmol/L | DEPARTMENT | | | (LAB) | | | OF | | | | | | PATHOLOGY | | + +---------+ + + + | CHLORIDE, | 102 | 97 - 108 mmol/L | [facility] | | | PLASMA | | | DEPARTMENT | | | (LAB) | | | OF | | | | | | PATHOLOGY | | + +---------+ + + + | TOTAL CO2, | 29 | 22 - 29 mmol/L | [facility] | | | PLASMA | | | DEPARTMENT | | | (LAB) | | | OF | | | | | | PATHOLOGY | | + +---------+ + + + | ALT (SGPT) | 24 | 13 - 48 U/L | [facility] | | | | | | DEPARTMENT | | | | | | OF | | | | | | PATHOLOGY | | + +---------+ + + + | ANION GAP | 8 | 4 - 11 mmol/L | [facility] | | | | | | DEPARTMENT | | | | | | OF | | | | | | PATHOLOGY | | + +---------+ + + + | ANION | 9 | 4 - 11 mmol/L | [facility] | | | GAP(ALB | | | DEPARTMENT | | | CORRECTED) | | | OF | | | | | | PATHOLOGY | | + +---------+ + + + + + | Specimen | + + | Blood - Blood | + + + + + + + | Performing | Address | City/State/Zipcode | Phone Number | | Organization | | | | + + + + + | [facility] | [address] | [place] [address] | | | PATHOLOGY | [address] | | | + + + + + MD UPPER GI ENDOSCOPY,BIOPSY (06/19/2011 7:54 AM PDT)MD COLONOSCOPY, FLEX, W/BIOPSY (06/18 7:54 AM PDT)ORDERS OTHER (06/19/2011 12:00 AM PDT) + + + | Narrative | Performed At | + + + | | | + + + + + | Transcriptions | + + | Rosa Maria, Faculty - 06/30/2011 11:34 AM PDT | + + SURGICAL PATHOLOGY (06/19/2011) + + + + + + | [...] OF | | | | OF SPECIMEN:C BodySOURCE | | PATHOLOGY | | | | OF SPECIMEN:D Terminal | | | | | | ileumSOURCE OF | | | | | | SPECIMEN:E Right | | | | | | colonSOURCE OF | | | | | | SPECIMEN:F Transverse | | | | | | colonSOURCE OF | | | | | | SPECIMEN:G Left colon | | | | | | Final Pathologic | | | | | | Diagnosis:A: Duodenum, | | | | | | biopsy: - Small | | | | | | bowel mucosa with no | | | | | | diagnostic abnormality | | | | | | B: Antrum, | | | | | | biopsy: - Chronic | | | | | | active gastritis with | | | | | | moderate activity and | | | | | | granulomas - | | | | | | Helicobacter pylori | | | | | | present, confirmed with | | | | | | immunohistochemicalstain | | | | | | ing- Negative for | | | | | | dysplasia C: | | | | | | Body, biopsy: - | | | | | | Chronic active gastritis | | | | | | with moderate activity | | | | | | and granuloma - | | | | | | Helicobacter pylori | | | | | | present- Negative for | | | | | | dysplasia D: | | | | | | Terminal ileum, | | | | | | biopsy: - Chronic | | | | | | active ileitis with | | | | | | moderate activity | | | | | | - No granulomas or | | | | | | dysplasia identified | | | | | | E: Right colon, | | | | | | biopsy: - Chronic | | | | | | active colitis with mild | | | | | | activity - No | | | | | | granulomas or dysplasia | | | | | | identified F: | | | | | | Transverse colon, | | | | | | biopsy: - Chronic | | | | | | inactive 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 - | | | | | | Negative for dysplasia | | | | | | G: Left colon, | | | | | | biopsy: - Chronic | | | | | | active colitis with | | | | | | moderate activity and | | | | | | granulomas- Negative for | | | | | | dysplasia | | | | | | Case seen by:Reshma | | | | | | Sauerwein/Student | | | | | | FellowJodelmar Sales, | | | | | | M.D./PathologistT: | | | | | | 2/rdl Clinical | | | | | | History:The patient is a | | | | | | 15-year-old male with | | | | | | Crohn, elevated | | | | | | (illegible). Gross | | | | | | Description:Received | | | | | | are 7 specimens in | | | | | | formalin in containers | | | | | | labeled with the | | | | | | patientname (initials | | | | | | LESTER) and: A: | | | | | | Duodenum: Received | | | | | | are 2 soft, bose-red | | | | | | pieces of tissue | | | | | | measuring 0.5x 0.3 x 0.3 | | | | | | cm in aggregate. The | | | | | | entire specimen is | | | | | | submitted. B: | | | | | | Antrum: Received are | | | | | | 2 soft, bose-red pieces | | | | | | of tissue measuring 0.7 | | | | | | x0.5 x 0.3 cm in | | | | | | aggregate. The entire | | | | | | specimen is submitted. | | | | | | C: Body: | | | | | | Received is a soft, | | | | | | bose-pink piece of tissue | | | | | | measuring 0.4 x 0.3x | | | | | | 0.3 cm. The entire | | | | | | specimen is submitted. | | | | | | D: Terminal | | | | | | ileum: Received are 4 | | | | | | soft, bose-red pieces of | | | | | | tissuemeasuring 0.7 x | | | | | | 0.3 x 0.3 cm in | | | | | | aggregate. The entire | | | | | | specimen issubmitted. | | | | | | E: Right colon: | | | | | | Received is a soft, | | | | | | bose-red piece of tissue | | | | | | measuring 0.3x 0.3 x 0.3 | | | | | | cm. The entire | | | | | | specimen is submitted. | | | | | | F: Transverse | | | | | | colon: Received are 2 | | | | | | soft, bose-red pieces of | | | | | | tissuemeasuring 0.5 x | | | | | | 0.3 x 0.2 cm in | | | | | | aggregate. The entire | | | | | | specimen issubmitted. | | | | | | G: Left colon: | | | | | | Received are 3 soft, | | | | | | bose-pink pieces of | | | | | | tissue measuring0.5 x | | | | | | 0.5 x 0.4 cm in | | | | | | aggregate. The entire | | | | | | specimen is submitted. | | | | | | Cassette Index:A: | | | | | | Duodenum:A1B: | | | | | | Antrum:B1C: | | | | | | Body:C1D: Terminal | | | | | | ileum:D1E: Right | | | | | | colon:E1F: Transverse | | | | | | colon:F1G: Left | | | | | | colon:G1AMJ:tp My | | | | | | electronic signature | | | | | | indicates that I have | | | | | | personally reviewed | | | | | | alldiagnostic slides, | | | | | | the gross and/or | | | | | | microscopic portion of | | | | | | thisreport and | | | | | | formulated the final | | | | | | diagnosis. | | | | | | Rendering Diagnostician: | | | | | | Sherrie Sales | | | | | | Bonifacio | | | | | | zahraa Signed 06/23/2011 | | | | | | 8:04PM | | | | + + + + + + + + | Specimen | + + | | + + + + + + + | Performing | Address | City/State/Zipcode | Phone Number | | Organization | | | | + + + + + | [facility] | [address] | [place] [address] | | | PATHOLOGY | [address] | | | + + + + + documented in this encounter Visit Diagnoses + + | Diagnosis | + + | Crohn's disease, small and large intestine with 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, severe | | duodenitis Regional enteritis of small intestine with large intestine | + + | Anorexia | + + documented in this encounter Administered Medications + +--------+ +--------+------+------+ | Medication Order | MAR | Action | Dose | Rate | Site | | | Action | Date | | | | + +--------+ +--------+------+------+ | acetaminophen (aka TYLENOL) | Given | 06/20/19 | 325 mg | | | | tablet 325 mg 325 mg, oral, | | 12 12:58 | | | | | ONCE, 1 dose, Thu06/20/11 at 1230 | | PM PDT | | | | + +--------+ +--------+------+------+ +---+---+ | | | +---+---+ + +-------+ +--------+---+---+ | azaTHIOprine (aka IMURAN) | Given | 06/21/19 | 150 mg | | | | tablet 150 mg 150 mg, oral, | | 12 10:04 | | | | | DAILY, First dose on Anika 06/19/11 | | PM PDT | | | | | at 2200, Until Discontinued | | | | | | + +-------+ +--------+---+---+ +-------+ +--------+---+---+ | Given | 06/20/19 | 150 mg | | | | | 12 9:37 | | | | | | PM PDT | | | | +-------+ +--------+---+---+ | Given | 06/19/19 | 150 mg | | | | | 12 9:47 | | | | | | PM PDT | | | | +-------+ +--------+---+---+ +---+---+ | | | +---+---+ + +-------+ +-------+---+---+ | diphenhydrAMINE (aka BENADRYL) | Given | 06/20/19 | 25 mg | | | | oral solution 25 mg 25 mg, oral, | | 12 12:58 | | | | | ONCE, 1 dose, 06/20/11 at | | PM PDT | | | | | 1230 | | | | | | + +-------+ +-------+---+---+ +---+---+ | | | +---+---+ + +-------+ +---------+---+---+ | ergocalciferol (aka VITAMIN D2, | Given | 06/21/19 | 50,000 | | | | DRISDOL) capsule 50,000 Units | | 12 8:59 | Units | | | | 50,000 Units, oral, EVERY 7 DAYS, | | PM PDT | | | | | First dose on Thu06/21/11 at | | | | | | | 1115, Until Discontinued | | | | | | + +-------+ +---------+---+---+ +---+---+ | | | +---+---+ + +---------+ +--------+--------+---+ | inFLIXimab (aka REMICADE) IV | New Bag | 06/20/19 | 300 mg | mL/hr | | | 300 mg 300 mg, intravenous, | | 12 1:26 | | | | | ONCE, 1 dose, Thu06/20/11 at 1300 | | PM PDT | | | | + +---------+ +--------+--------+---+ +---+---+ | | | +---+---+ + +-------+ + +---+---+ | mesalamine EC (aka ASACOL) | Given | 06/22/19 | 1,200 mg | | | | tablet 1,200 mg 1,200 mg, oral, | | 12 8:50 | | | | | TWICE DAILY, First dose on Anika | | AM PDT | | | | | 06/19/11 at 1015, Until | | | | | | | Discontinued | | | | | | + +-------+ + +---+---+ +-------+ + +---+---+ | Given | 06/21/19 | 1,200 mg | | | | | 12 8:58 | | | | | | PM PDT | | | | +-------+ + +---+---+ | Given | 06/21/19 | 1,200 mg | | | | | 12 9:01 | | | | | | AM PDT | | | | +-------+ + +---+---+ +---+---+ | | | +---+---+ + +---------+ +-------+--------+---+ | methylPREDNISolone sod succ | New Bag | 06/22/19 | 30 mg | mL/hr | | | (aka SOLU-MEDROL) injection 30 mg | | 12 8:50 | | | | | 30 mg, intravenous, TWICE | | AM PDT | | | | | DAILY, First dose on Anika 06/19/11 | | | | | | | at 1015, Until Discontinued | | | | | | + +---------+ +-------+--------+---+ +---------+ +-------+--------+---+ | New Bag | 06/21/19 | 30 mg | mL/hr | | | | 12 8:59 | | | | | | PM PDT | | | | +---------+ +-------+--------+---+ | New Bag | 06/21/19 | 30 mg | mL/hr | | | | 12 9:01 | | | | | | AM PDT | | | | +---------+ +-------+--------+---+ +---+---+ | | | +---+---+ + +-------+ +--------+---+---+ | metronidazole (aka FLAGYL) oral | Given | 06/22/19 | 125 mg | | | | dose 125 mg 125 mg, oral, TWICE | | 12 8:50 | | | | | DAILY, First dose on Thu06/19/11 | | AM PDT | | | | | at 1200, Until Discontinued | | | | | | + +-------+ +--------+---+---+ +-------+ +--------+---+---+ | Given | 06/21/19 | 125 mg | | | | | 12 8:58 | | | | | | PM PDT | | | | +-------+ +--------+---+---+ | Given | 06/21/19 | 125 mg | | | | | 12 9:02 | | | | | | AM PDT | | | | +-------+ +--------+---+---+ +---+---+ | | | +---+---+ + +-------+ +-------+---+---+ | omeprazole (aka PRILOSEC) | Given | 06/22/19 | 20 mg | | | | capsule 20 mg 20 mg, oral, | | 12 8:50 | | | | | DAILY, First dose on Thu06/19/11 | | AM PDT | | | | | at 1015, Until Discontinued | | | | | | + +-------+ +-------+---+---+ +-------+ +-------+---+---+ | Given | 06/21/19 | 20 mg | | | | | 12 9:02 | | | | | | AM PDT | | | | +-------+ +-------+---+---+ | Given | 06/20/19 | 20 mg | | | | | 12 10:14 | | | | | | AM PDT | | | | +-------+ +-------+---+---+ +---+---+ | | | +---+---+ + +-------+ +------+---+---+ | ondansetron (aka ZOFRAN) tablet | Given | 06/20/19 | 8 mg | | | | 8 mg 8 mg, oral, EVERY 12 HOURS | | 12 6:39 | | | | | NEEDED, Starting Anika 06/19/11 | | PM PDT | | | | | at 1008, Until 06/22/11 at | | | | | | | 1735, nausea/vomiting | | | | | | + +-------+ +------+---+---+ +---+---+ | | | +---+---+ documented in this encounter
--- OUTSIDE RECORDS SUMMARY | ~2019-02-23 | XMS | Encounter Summary ---
Demographics + + + | Address | [address] | | | [place] [address] | + + + | Home Phone | | + + + | Preferred Language | Unknown | + + + | Marital Status | Single | + + + | Cheondoism Affiliation | NON | + + + [...] + | Debora Resendiz | ECON | [address] | | | | | [place] | | | | | [address] | | + + + + + [...] Team Providers + +------+ + | Care Intelligence Specialist Name | Role | Phone | + [...] Closed | | Pediatric | Diagnoses | Clay, | Ped [facility] | | | | Gastroenterol | Regional | MD Ce | Hem Onc Dch | | | | ogy | enteritis of | [address] | [address] | | | | | small | [address] | Dr | | | | | intestine | [place], [place] | Mailcode: | | | | | with large | [id number] | DCH10C | | | | | intestine | | [address] | | | | | ([facility], [facility]IN [facility]) | | [place], [place] | | | | | Procedures | | [address] | | | | | MD IRON | | Phone: | | | | | SUCROSE | | [phone] | | | | | INJECTION, 1 | | Fax: | | | | | MG | | [phone] | +--------+--------+ + + + + Encounter Details +--------+---------+ + + + | Date | Type | Department | Care Team | Description | +--------+---------+ + + + | 03/08/ | Office | Hematology | Wilmer, | High risk | | 2012 | Visit | Oncology at [facility] [address] | medications (not | | | | [facility] [address] | [address], | anticoagulants) | | | | Mailcode: DCH10 | [place] [address] | long-term use | | | | [address] | [phone] | (Primary Dx) | | | | [place], [place] | | | | | | [address] | | | | | | [phone] | | | +--------+---------+ + + + [...] Instructions Patient Instructions Sherron Guillen NP - 03/11/2012 10:07 AM PSTRemicade in 8 weeks . Try to come up with a method to remember to take your medications. documented in this encounter Progress Notes Sherron Guillen NP - 03/08/2012 6:24 PM PSTFormatting of this note might be differe nt from the original. PEDIATRIC GASTROENTEROLOGY IBD FOLLOW-UP CONSULTATION Jeremias Adames is an 16 y.o. male, who is referred by Tracey Galeas to Pediatric GI [facility] accompanied by his mother, for scheduled Remicade infusion. Interval History: Jeremias has complete his therapy for H Pylori and his symptoms are much improved. He had vi olent outbursts with his last course of steroids that required police intervention in the [facility]. Mom is adamant that she never wants him to take prednisone again. Jeremias was failing some classes. They worked with the counselor at school and now he has m ore study gilbert time. He is making headway in 2 classes he was failing. He is still very int olerant of frustration when he does not understand something. Dad was laid off of one of his 2 jobs. This creates a financial challenge for the family. Matt neely will have surgery next week. They have intentions of arranging more counseling visits for Jeremias now that dad is more available to provide transportation. Jeremias Adames has the following medical problems: Patient Active Problem List Diagnoses Weight loss Diarrhea Heartburn Anemia Abdominal pain, acute, right upper quadrant Nausea Crohn's disease, small and large intestine with 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, severe duodenit is Gastric ulcer Anorexia Helicobacter positive gastritis High risk medications (not anticoagulants) long-term use Hematochezia Vitamin B12 deficiency Excessive thirst Past IBD history: 06/04 diagnosed with Crohn's - focus of disease mainly in stomach with granulomas, colon and ileum. 02/03: biopsy: active gastritis with H. Pylori, Chronic ileitis with minimal activity and f ocal granulomas. 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 Medications that have failed to control the disease activity: Imuran and steroids Current medicines include: Current Outpatient Prescriptions Medication Sig CALCIUM CARBONATE (CALCIUM 500 ORAL) Take by mouth. FOLIC ACID ORAL Take by mouth. inFLIXimab (REMICADE) 100 mg Intravenous Recon Soln Inject 5 mg/kg into the vein (IV) e very eight weeks. Indications: CROHN'S DISEASE mesalamine EC (ASACOL) 400 mg Oral Tablet, Delayed Release (E.C.) Take 3 Tabs by mouth two times daily. Indications: Crohn's Disease multivitamin Oral capsule Take 1 Cap by mouth once daily. omeprazole (PRILOSEC) 20 mg Oral capsule,delayed release(DR/EC) Take 2 Caps by mouth on ce daily in the morning. VIT B12/FA/PYRIDOXAL/B6/BETAIN (COBALAMINE COMBINATIONS ORAL) Take by mouth. Changes in Medications since we last saw patient? Off flagyl, off prednisone, completed H p ylori therapy. Interval history update: Patient reports today that stools are 1/day and formed in consistency. Blood or mucus in the stool? no Urgency? no Abdominal pain? no Nausea? no. Vomiting? no. Energy level is good. Appetite is good. New medical/surgical issues since last visit? H Pylori was treated ROS: Aphthous ulcers? no Any joint or eye pain? no Any cough or nasal discharge recently? no Any known clotting disorder? no Any recent fever ? no Any skin problems or rash? no Has weight been stable? Gaining weight GI aspects of ROS noted in the Interval History section above. Cardiovascular: Negative Genitourinary:Negative Neurologic: Negative Social history: Lives with mother and step brother and sister and dad. Missing school? Not at this time Medication compliance estimate 75% Nutrition: Taking multivitamin? sometimes Calcium intake adequate? Probably not No Known Allergies Ht 172.4 cm (5' 7.87") (52 %ile), Wt 68.6 kg (151 lbs 3.8 oz) (80 %ile), Weight for age(%) 79.73%, BMI for age(%) 80.78%, Length for age(%) 52.09%, BP 134/70, Pulse 84, Temperature 36.9 C (98.4 F), Temperature source Oral, RR 20. (Taken on ThuMar 08, 2012 4:01 PM ) Examination: Appearance: alert, active and in no apparent distress. Skin: turgor normal, capillary refill brisk, no rashes, petechiae HEENT: normocephalic, PERRLA , sclera nonicteric, nose without discharge, mouth [...] signficant cervical or supraclavicular adenopathy Psychiatric- affect pleasant Patient reports a pain level of 0 today. __X_ No action required ___ See assessment and plan Lab results from last GI visit: Clinical Research And Evaluation Analyst on 03/08/2012 Component Date Value Range ALBUMIN, PLASMA (LAB) (g/dL) 03/08/2012 4.0 3.5-4.7 BILIRUBIN TOTAL (mg/dL) 03/08/2012 0.4 0.3-1.2 BILIRUBIN DIRECT (mg/dL) 03/08/2012 <0.1 0.0-0.3 ALK PHOS (U/L) 03/08/2012 217 55-220 AST(SGOT) (U/L) 03/08/2012 19 18-36 ALT (SGPT) (U/L) 03/08/2012 24 12-60 TOTAL PROTEIN, PLASMA (LAB) (g/dL) 03/08/2012 7.0 5.9-8.2 AST CMNT 03/08/2012 No Hemo - BILI T CMNT 03/08/2012 No Hemo - BILI D CMNT 03/08/2012 No Hemo - WHITE CELL COUNT (K/cu mm) 03/08/2012 4.2* 4.9-15.5 RED CELL COUNT (M/cu mm) 03/08/2012 5.45* 4.50-5.30 HEMOGLOBIN (g/dL) 03/08/2012 12.7* 13.0-16.0 HEMATOCRIT (%) 03/08/2012 38.9 37.0-49.0 MCV (fL) 03/08/2012 71.5* 80.0-96.0 MCHC (g/dL) 03/08/2012 32.6* 33.4-35.5 RDW (%) 03/08/2012 16.7* 11.5-15.0 PLATELET COUNT (K/cu mm) 03/08/2012 211 150-400 NEUTROPHIL % (%) 03/08/2012 41 41-76 LYMPHOCYTE % (%) 03/08/2012 44* 7-41 MONOCYTE % (%) 03/08/2012 11 3-13 EOS % (%) 03/08/2012 4 0-6 BASO % (%) 03/08/2012 1 0-2 NEUTROPHIL # (K/cu mm) 03/08/2012 1.7* 2.8-11.1 LYMPHOCYTE # (K/cu mm) 03/08/2012 1.8 0.4-3.2 MONOCYTE # (K/cu mm) 03/08/2012 0.4 0.3-1.3 EOS # (K/cu mm) 03/08/2012 0.1 0.0-0.3 BASO # (K/cu mm) 03/08/2012 0.0 0.0-0.2 ANISOCYTOSIS 03/08/2012 1+ (10-25cells/HPF) - MICROCYTOSIS 03/08/2012 2+ (25-50cells/HPF) - HYPOCHROMIA 03/08/2012 1+ (10-25cells/HPF) - Assessment : This is a patient with the following chronic medical conditions: Patient Active Problem List Diagnoses Weight loss Diarrhea Heartburn Anemia Abdominal pain, acute, right upper quadrant Nausea Crohn's disease, small and large intestine with 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, severe duodenit is Gastric ulcer Anorexia Helicobacter positive gastritis High risk medications (not anticoagulants) long-term use Hematochezia Vitamin B12 deficiency Excessive thirst The inflammatory bowel is under improved control. Plan: 1. The following medications were changed: None There were no changes made in the remaining listed GI medications. 2. Labs or imaging ordered are listed below, including CBC, liver set. 3.. Education: For further information on GI topics, we direct our families to [email or web address] and www.[email or web address] 4. Health care maintenance Field Geologist exam every 2 years. Flu shot reminder: done Note: Immunosuppressed patients on Remicade, Humira, Cimzia, chronic steroids, methotrexate , imuran or 6-MP should not have live virus vaccinations , including the nasal flu mist, MMR or Varicella vaccination. 5. Next recommended follow-up in GI clinic: For Remicade in 8 weeks. [facility] [address] [place] [address] Mailcode: [id number] [place] [address] documented in t his encounter Plan of Treatment Not on filedocumented as of this encounter Visit Diagnoses + + | Diagnosis | + + | High risk medications (not anticoagulants) long-term use - Primary Encounter for | | long-term (current) use of other medications | + + documented in this encounter
--- OUTSIDE RECORDS SUMMARY | ~2019-02-23 | XMS | Encounter Summary ---
Demographics + + + | Address | [address] | | | [place] [address] | + + + | Home Phone [...] + | Debora Resendiz | ECON | [address] | | | | | [place] | | | | | [address] | | + + + + + [...] Team Providers + +------+ + | Care Media Planner Name | Role | Phone | + +------+ + | Tracey Galeas MD | PCP | Unavailable | + +------+ + Reason for Visit +--------+ + | Reason | Comments | +--------+ + | Other | Prep Instructions | +--------+ + Encounter Details +--------+ + + + + | Date | Type | Department | Care Team | Description | +--------+ + + + + | 11/29/ | Telephone | Pediatric | Tania Foster MD | Other (Prep | | 2014 | | Gastroenterology at | [address] | Instructions) | | | | [address] | [address] [place], | | | | | [facility] | [place] [address] | | | | | [address] [facility] | [phone] | | | | | Mailcode: [id number] | | | | | | [place] | | | | | | [place], [place] | | | | | | [address] | | | | | | [phone] | | | +--------+ + + + [...]
--- OUTSIDE RECORDS SUMMARY | ~2019-02-23 | XMS | Encounter Summary ---
Demographics + + + | Address | [address] | | | [place] [address] | + + + | Home Phone [...] + | Debora Resendiz | ECON | [address] | | | | | [place] | | | | | [address] | | + + + + + [...] Team Providers + +------+ + | Care Marine Reporter Name | Role | Phone | + +------+ + | Tracey Galeas MD | PCP | Unavailable | + +------+ + Reason for Visit + + + | Reason | Comments | + + + | Follow-up in | | | outpatient clinic | | + + + Office Visit - E/M Services (Routine) +--------+ + + + + + | Status | Reason | Specialty | Diagnoses / | Referred By | Referred To | | | | | Procedures | Contact | Contact | +--------+ + + + + + | Closed | Specialty | Pediatric | | [place], | Ped Gastro | | | Services | Gastroenterol | | Tracey Chiu MD | [address] | | | Required | ogy | | [address] | [place] | | | | | | [facility] | Mailcode: | | | | | | [place] | [facility] | | | | | | [address] | [address] | | | | | | [address] | [place], [place] | | | | | [address] | [address] | | | | | | [place], | Phone: | | | | | | [place] [address] | [phone] | | | | | | | Fax: | | | | | | | [phone] | +--------+ + + + + + Encounter Details +--------+---------+ + + + | Date | Type | Department | Care Team | Description | +--------+---------+ + + + | 10/18/ | Office | Pediatric | Tania Camp MD | Asthma, allergic | | 2012 | Visit | Gastroenterology at | [address] | (Primary Dx); | | | | [address] | [address] [place], | Crohn's disease, | | | | [facility] | [place] [address] | small and large | | | | [address] | [phone] | intestine with | | | | Mailcode: [facility] | | granuloma in the | | | | [place] | | colon, severe | | | | [place], [place] | | duodenitis | | | | [address] | | | | | | [phone] | | | +--------+---------+ + + + [...] + + + | Blood Pressure | 138/88 | 10/18/2012 10:59 AM | | | | | PDT | | + + + + + | Pulse | 60 | 10/18/2012 10:59 AM | | | | | PDT | | + + + + + | Temperature | - | - | | + + + + + | Respiratory Rate | 12 | 10/18/2012 10:59 AM | | | | | PDT | | + + + + + | Oxygen Saturation | - | - | | + + + + + | Inhaled Oxygen | - | - | | | Concentration | | | | + + + + + | Weight | 71.1 kg (156 lb 12 | 10/18/2012 10:59 AM | | | | oz) | PDT | | + + + + + | Height | 174.8 cm (5' 8.82") | 10/18/2012 10:59 AM | | | | | PDT | | + + + + + | Body Mass Index | 23.27 | 10/18/2012 10:59 AM | | | | | PDT | | + + + + + documented in this encounter Progress Notes Tania Camp MD - 10/18/2012 11:04 AM PDT PEDIATRIC GASTROENTEROLOGY IBD FOLLOW-UP CONSULTATION Jeremias Adames is an 17 y.o. male, who is referred by Tracey Galeas to Pediatric GI Cli vivi accompanied by mother, for follow-up consultation for chief complaint of Crohn's. Jeremias Adames has the following medical problems: Patient Active Problem List Diagnosis Weight loss Diarrhea Heartburn Anemia Abdominal pain, acute, right upper quadrant Nausea Crohn's disease, small and large intestine with 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, severe duodenit is Gastric ulcer Anorexia Helicobacter positive gastritis High risk medications (not anticoagulants) long-term use Hematochezia Vitamin B12 deficiency Excessive thirst Neutropenia Arthritis associated with inflammatory bowel disease Fatigue Asthma, allergic Past IBD history: Diagnosed with Crohn's Feb, 2011 of antrum, duodenum, colon. Granuloma in colon MRE:Feb, 2011 Mild mural thickening and mucosal hyperenhancement in short segment of terminal ileum, at and just proximal to ileocecal valve. Remainder of small bowel is unremarkable, without wall thickening, hyperenhancement, or stricture. Slight hyperenhancement without mural thickening is present in descending colon. D/C'd Imuran July,, - decreased WBC September, - changed from Remicade to Humira. Medications that have failed to control the disease activity in past or for which there was an adverse reaction: Imuran, mesalamine, steroids. Current medicines include: Current Outpatient Prescriptions Medication Sig adalimumab (HUMIRA) 40 mg/0.8 mL Subcutaneous Kit 2 injections (80 mg) sub Q on October 18, 2012 as instructed, then 40 mg injection every 2 wk thereafter. Please take a Zyrtec 10 mg tab and 500 mg of Tylenol po 30 min before injecting medicine. Indications: CROHN'S DISEASE CALCIUM CARBONATE (CALCIUM 500 ORAL) Take by mouth. cholecalciferol, Vitamin D3, 1,000 unit Oral tablet Take 1,000 Units by mouth every sev en days. FOLIC ACID ORAL Take by mouth. Mesalamine (LIALDA) 1.2 g Oral tablet,delayed release (DR/EC) Take 2 Tabs by mouth once daily. multivitamin Oral capsule Take 1 Cap by mouth once daily. MULTIVITAMIN ORAL Take by mouth. Take 1 tablet by mouth Daily. omeprazole (PRILOSEC) 20 mg Oral capsule,delayed release(DR/EC) Take 2 Caps by mouth on ce daily in the morning. VIT B12/FA/PYRIDOXAL/B6/BETAIN (COBALAMINE COMBINATIONS ORAL) Take by mouth. No current facility-administered medications for this visit. Interval history update: Patient reports today that stools are 1-2/day and normal in consistency. Blood or mucus in the stool? no Urgency? no Abdominal pain? no Nausea? no. Vomiting? no. Energy level is good. Appetite is good. New medical/surgical issues since last visit? no ROS: Aphthous ulcers? no Any joint or eye pain? no Any cough or nasal discharge recently? no Any known clotting disorder? no Any recent fever ? no Any skin problems or rash? no Has weight been stable? yes GI aspects of ROS noted in the Interval History section above. Cardiovascular: Negative Genitourinary:Negative Neurologic: Negative Social history: Lives with parents. Missing school? N/a - starting footbal tomorrow Medication compliance estimate poor in the past Nutrition: Taking multivitamin? yes Calcium intake adequate? yes No Known Allergies Ht 174.8 cm (5' 8.82") (55 %ile), Wt 71.1 kg (156 lbs 12.0 oz) (79 %ile), BP 138/88, Pulse 60, RR 12, BMI 23.27 kg/(m^2). 79%ile (Z=0.80) based on CDC 2-20 Years BMI-for-age data. Examination: Appearance: alert, active and in no [...] Lab results from last GI visit: Clinical Paralegal Internship on 06/28/2012 Component Date Value Range ALBUMIN, PLASMA (LAB) (g/dL) 06/28/2012 3.9 3.5-4.7 BILIRUBIN TOTAL (mg/dL) 06/28/2012 0.4 0.3-1.2 BILIRUBIN DIRECT (mg/dL) 06/28/2012 <0.1 0.0-0.3 ALK PHOS (U/L) 06/28/2012 189 55-220 AST(SGOT) (U/L) 06/28/2012 17* 18-36 ALT (SGPT) (U/L) 06/28/2012 18 12-60 TOTAL PROTEIN, PLASMA (LAB) (g/dL) 06/28/2012 6.8 6.2-8.5 AST CMNT 06/28/2012 No Hemo - BILI T CMNT 06/28/2012 No Hemo - BILI D CMNT 06/28/2012 No Hemo - WBC COUNT (K/cu mm) 06/28/2012 5.2 4.9-15.5 RED CELL COUNT (M/cu mm) 06/28/2012 5.31* 4.50-5.30 HEMOGLOBIN (g/dL) 06/28/2012 12.8* 13.0-16.0 HEMATOCRIT (%) 06/28/2012 40.0 37.0-49.0 MCV (fL) 06/28/2012 75.4* 80.0-96.0 MCHC (g/dL) 06/28/2012 31.9* 33.4-35.5 RDW (%) 06/28/2012 16.3* 11.5-15.0 PLATELET COUNT (K/cu mm) 06/28/2012 188 150-400 NEUTROPHIL % (%) 06/28/2012 53 41-76 LYMPHOCYTE % (%) 06/28/2012 32 7-41 MONOCYTE % (%) 06/28/2012 12 3-13 EOS % (%) 06/28/2012 2 0-6 BASO % (%) 06/28/2012 1 0-2 NEUTROPHIL # (K/cu mm) 06/28/2012 2.8 2.8-11.1 LYMPHOCYTE # (K/cu mm) 06/28/2012 1.7 0.4-3.2 MONOCYTE # (K/cu mm) 06/28/2012 0.6 0.3-1.3 EOS # (K/cu mm) 06/28/2012 0.1 0.0-0.3 BASO # (K/cu mm) 06/28/2012 0.0 0.0-0.2 Assessment & Plan : This is a patient with the following chronic medical conditions: Patient Active Problem List Diagnosis Weight loss Diarrhea Heartburn Anemia Abdominal pain, acute, right upper quadrant Nausea Crohn's disease, small and large intestine with 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, severe duodenit is Gastric ulcer Anorexia Helicobacter positive gastritis High risk medications (not anticoagulants) long-term use Hematochezia Vitamin B12 deficiency Excessive thirst Neutropenia Arthritis associated with inflammatory bowel disease Fatigue Asthma, allergic 1. Inflammatory bowel disease The inflammatory bowel is under fair control. The disease activity is minimal. The following medications were changed: RN's instructed on how to inject Humira - 2 doses each of 40 mg subQ. A useful website link for families to view the risks and benefits of medication in inflamma tory bowel disease is: http://www.[employer]/en/understanding-ibd/frgzmhgffcnas-xzm-nikrf -bqw-glhdngil-tv-ibd-therapies.html Past studies reviewed with family/patient, and new studies ordered: yes 2. Nutrition support: A. Our Crohn's patients would benefit from a DEXA every 2 years. I reviewed his normal DEXA with him. 3. Health care maintenance: A. Vaccinations- - he is not hep B immune, so asked him to get a booster. 4. Psychosocial or economic challenges affecting patient's medical care delivery: parent-kristen sparrow Plan- the following was included in the patient's after visit summary: Humira every 2 wk. Labs in 2 wk, and in 2 months labs plus hep B surf qualitative antibody TANIA CAMP MD [facility] [address] Mailcode: [place] [address] documented in this enco unter Plan of Treatment Not on filedocumented as of this encounter Results GGT, PLASMA (01/18/2013 3:11 PM PST) + +-------+ + + + | Component | Value | Ref Range | Performed | Pathologist | | | | | At | Signature | + +-------+ + + + | GAMMA | 17 | 12 - 98 U/L | [facility] | | | [facility]YL | | | LABORAT[facility] | | | TRANS | | | SERVICES, | | | | | | CORE | | + +-------+ + + + + + | Specimen | + + | Blood | + + + + + + + | Performing | Address | City/State/Zipcode | Phone Number | | Organization | | | | + + + + + | [facility] | [address] | [place] [address] | | | SERVICES, CORE | [address] | | | + + + + + ALT, PLASMA (01/18/2013 3:11 PM PST) + +-------+ + + + | Component | Value | Ref Range | Performed | Pathologist | | | | | At | Signature | + +-------+ + + + | ALT (SGPT) | 22 | 12 - 60 U/L | [facility] [...] | + + + + + | [facility] | [address] | [place] [address] | | | SERVICES, CORE | [address] | | | + + + + + documented in this encounter Visit Diagnoses + + | Diagnosis | + + | Asthma, allergic - Primary Unspecified asthma | + + | Crohn's disease, small and large intestine with 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, severe | | duodenitis Regional enteritis of small intestine with large intestine | + + documented in this encounter
--- OUTSIDE RECORDS SUMMARY | ~2019-02-23 | XMS | Encounter Summary ---
Demographics + + + | Address | [address] | | | [place] [address] | + + + | Home Phone | | + + + | Preferred Language | Unknown | + + + | Marital Status | Single | + + + | Quaker Affiliation | NON | + + + | Race | White | + + + | Ethnic Group | Not or | + + + Author + + + | Author | [facility] | + + + | Organization | [facility] | + + + | Address | Unknown | + + + | Phone | Unavailable | + + + Support + + + + + | Name | Relationship | Address | Phone | + + + + + | Debora Resendiz | ECON | [address] | | | | | [place] | | | | | [address] | | + + + + + [...] Team Providers + +------+ + | Care Foreign Exchange Student Coordinator Name | Role | Phone | [...] | | | | | intestine | [place], [place] | [address] | | | | | ([facility]) | [address] | [place] | | | | | Procedures | Phone: | Research | | | | | MR | [phone] | Center | | | | | ENTEROGRAPHY | Fax: | [place], [place] | | | | | ABDOMEN AND | [phone] | [address] | | | | | PELVIS WWO | | Phone: | | | | | CONTRAST | | [phone] | | | | | | | Fax: | | | | | | | [phone] | +--------+--------+ + + + + Reason [...] | | | [address] | [address] [place], | | | | | [facility] | [place] [address] | | | | | [address] | [phone] | | | | | Mailcode: CDR | | | | | | [address] | | | | | | [place], [place] | | | | | | [address] | | | | | | [phone] | | | +--------+ + + + [...] | | + +---------+ + + | [facility] DEPARTMENT OF | | | | [...]
--- OUTSIDE RECORDS SUMMARY | ~2019-02-23 | XMS | Encounter Summary ---
Demographics + + + | Address | [address] | | | [place] [address] | + + + | Home Phone | | + + + | Preferred Language | Unknown | + + + | Marital Status | Single | + + + | Muslim Affiliation | NON | + + + | Race | White | + + + | Ethnic Group | Not or | + + + Author + + + | Author | [facility] | + + + | Organization | [facility] | + + + | Address | Unknown | + + + | Phone | Unavailable | + + + Support + + + + + | Name | Relationship | Address | Phone | + + + + + | Debora Resendiz | ECON | [address] | | | | | [place] | | | | | [address] | | + + + + + [...] Team Providers + +------+ + | Care Finger Buffs Assembler Name | Role | Phone | + [...] Closed | | Pediatric | Diagnoses | [place], | [facility] | | | | Gastroenterol | Regional | Tania Landrum MD | Hem Onc Dch | | | | ogy | enteritis of | [address] | [address] | | | | | small | [address] | | | | | intestine | [address] | Mailcode: | | | | | with large | [place], [place] | DCH10C | | | | | intestine | [address] | [address] | | | | | ([facility]) | Phone: | [place], [place] | | | | | Anorexia | [phone] | [address] | | | | | Pre-procedur | Fax: | Phone: | | | | | e Diagnoses | [phone] | [phone] | | | | | | | Fax: | | | | | Procedures | | [phone] | | | | | AL | | | | | | | INFLIXIMAB | | | | | | | INJECTION, | | | | | | | 10 MG AL | | | | | | | THR/PRPH/DX | | | | | | | IV INF,IN | | | | | | | AL | | | | | | | THER/PROPH/D | | | | | | | IAG IV | | | +--------+--------+ + + + + Encounter Details +--------+---------+ + + + | Date | Type | Department | Care Team | Description | +--------+---------+ + + + | 09/25/ | Office | Hematology | Wil[place], | High risk | | 2011 | Visit | Oncology at [facility] [address] | [address] | medications (not | | | | [facility] [address] | [place], | anticoagulants) | | | | Mailcode: DCH10C | [place] [address] | long-term use | | | | [address] | [phone] | (Primary Dx) | | | | [place], [place] | | | | | | [address] | | | | | | [phone] | | | +--------+---------+ + + + [...] Instructions Patient Instructions Sherron Guillen NP - 10/03/2011 7:20 PM PDT Return for remicade in 8 weeks. Take your medicines documented in this encounter Progress Notes Sherron Guillen NP - 10/03/2011 7:07 PM PDTFormatting of this note might be differe nt from the original. PEDIATRIC GASTROENTEROLOGY IBD FOLLOW-UP CONSULTATION Jeremias Adames is an 16 y.o. male, who is referred by Tracey Galeas to Pediatric GI Cli vivi accompanied by his mother, for a scheduled Remicade infusion. He is generally doing very well but is exhausted because he has been getting up several bozena es a night to take their new puppies outside to toilet. Patient Active Problem List Diagnoses Weight loss Diarrhea Heartburn Anemia Abdominal pain, acute, right upper quadrant Nausea Crohn's disease, small and large intestine with 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, severe duodenit is Gastric ulcer Anorexia Helicobacter positive gastritis High risk medications (not anticoagulants) long-term use Past IBD history: - 02/2011 Diagnosed with Crohn's. - 05/2011 Hospitalized for IV steroids and Remicade. -06/19/11 Colonoscopy: ileum with linear ulcers, purulence, colonic mucosa inflamed with ski p lesions, distal colon inflamed, right colon with ulcers around the IC Valve. Medications that have failed to control the disease activity: Oral steroids, imuran and mes alamine Current medicines include: Current Outpatient Prescriptions Medication Sig azaTHIOprine (IMURAN) 50 mg Oral Tablet Take 3 Tabs by mouth once daily. Take at hs, on empty stomach Indications: Crohn's Disease ergocalciferol 50,000 unit Oral Capsule Take 1 Cap by mouth every seven days. inFLIXimab 100 mg Intravenous Recon Soln Inject 5 mg/kg into the vein (IV) every eight weeks. Indications: Crohn's Disease mesalamine EC 400 mg Oral Tablet, Delayed [...] in Medications since we last saw patient? He has been forgetting to take his Asacol and omeprazole Interval history update: Patient reports today that stools are 1/day or every other day and formed in consistency. Blood or mucus in the stool? No Urgency? no Abdominal pain? no Nausea? no. Vomiting? no. Energy level is poor- he is very sleep deprived. Appetite is good. New medical/surgical issues since [...] Genitourinary:Negative Neurologic: Negative Social history: Lives with mom Missing school? Out for the summer Medication compliance estimate - poor, he feels better so doesn't remember to take it . Nutrition: Taking multivitamin? No Calcium intake adequate? No No Known Allergies Ht 169.5 cm (5' 6.73") (47 %ile), Wt 65.7 kg (144 lbs 13.5 oz) (78 %ile), Weight for age(%) 78.44%, BMI for age(%) 81.60%, Length for age(%) 46.53%, BP 142/70, Pulse 81, Temperatur e 36.6 C (97.9 F), Temperature source Oral, RR 16. (Taken on ThuSep 26, 2011 1:02 PM ) Examination: Appearance: Sleepy and in no apparent distress. Skin: turgor normal, capillary refill brisk, no rashes, petechiae HEENT: normocephalic, sclera nonicteric, nose without discharge, mouth no aphthous lesions, mucous membranes moist, pharynx unremarkable Neck: supple, without thyromegaly Chest: clear to auscultation bilaterally. CV: regular rhythm, no murmurs. Abdomen: normal bowel sounds, soft, non distention, no tenderness to palpation, no reboun d or guarding, no fullness in the RLQ or palpable masses, no hepatosplenomegaly Musculoskeletal: grossly intact without clubbing or edema Neuro: normal gait and speech for age Nodes: no significant cervical or supraclavicular adenopathy Psychiatric- trying to sleep, seems appropriate given the circumstances Patient reports a pain level of 0 today. ___ No action required __X_ See assessment and plan Lab results from last GI visit: Clinical Dispatcher [employer] on 09/26/2011 Component Date Value Range WHITE CELL COUNT (K/cu mm) 09/26/2011 4.1* 4.9-15.5 RED CELL COUNT (M/cu mm) 09/26/2011 4.86 4.50-5.30 HEMOGLOBIN (g/dL) 09/26/2011 11.7* 13.0-16.0 HEMATOCRIT (%) 09/26/2011 36.8* 37.0-49.0 MCV (fL) 09/26/2011 75.6* 80.0-96.0 MCHC (g/dL) 09/26/2011 31.9* 33.4-35.5 RDW (%) 09/26/2011 17.5* 11.5-15.0 PLATELET COUNT (K/cu mm) 09/26/2011 239 150-400 ALBUMIN, PLASMA (LAB) (g/dL) 09/26/2011 3.9 3.5-4.7 BILIRUBIN TOTAL (mg/dL) 09/26/2011 0.7 0.3-1.2 BILIRUBIN DIRECT (mg/dL) 09/26/2011 0.1 - ALK PHOS (U/L) 09/26/2011 205 55-220 AST(SGOT) (U/L) 09/26/2011 23 18-36 ALT (SGPT) (U/L) 09/26/2011 19 13-48 TOTAL PROTEIN, PLASMA (LAB) (g/dL) 09/26/2011 6.2 5.9-8.2 NEUTROPHIL % (%) 09/26/2011 43 41-76 LYMPHOCYTE % (%) 09/26/2011 42* 7-41 MONOCYTE % (%) 09/26/2011 11 3-13 EOS % (%) 09/26/2011 3 - BASO % (%) 09/26/2011 1 - NEUTROPHIL # (K/cu mm) 09/26/2011 1.8* 2.8-11.1 LYMPHOCYTE # (K/cu mm) 09/26/2011 1.7 0.4-3.2 MONOCYTE # (K/cu mm) 09/26/2011 0.5 0.3-1.3 EOS # (K/cu mm) 09/26/2011 0.1 - BASO # 09/26/2011 0.0 - Assessment : This is a patient with the following chronic medical conditions: Patient Active Problem List Diagnoses Weight loss Diarrhea Heartburn Anemia Abdominal pain, acute, right upper quadrant Nausea Crohn's disease, small and large intestine with 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, severe duodenit is Gastric ulcer Anorexia Helicobacter positive gastritis High risk medications (not anticoagulants) long-term use Plan: 1. There were no changes made in the remaining listed GI medications. 2. Labs or imaging ordered are listed below, including CBC, liver set, . 3.. Education: For further information on GI topics, we direct our families to www:GastroKids.org and www.[facility].org 4. Health care maintenance Talent Agent exam every 2 years. Flu shot reminder: this fall Note: Immunosuppressed patients on Remicade, Humira, Cimzia, chronic steroids, methotrexate , imuran or 6-MP should not have live virus vaccinations , including the nasal flu mist, MMR or Varicella vaccination. 5. Next recommended follow-up in GI clinic: 8 weeks for Remicade. 6. Jeremias was reminded again that it is important to take his medications. He was encourag ed to set the alarm on his phone as a reminder. [facility] HEMATOLOGY ONCOLOGY [address] [place] [address] Mailcode: [address] [place] [phone] documented in t his encounter Plan of Treatment Not on filedocumented as of this encounter Visit Diagnoses + + | Diagnosis | + + | High risk medications (not anticoagulants) long-term use - Primary Encounter for | | long-term (current) use of other medications | + + documented in this encounter
--- OUTSIDE RECORDS SUMMARY | ~2019-02-23 | XMS | Encounter Summary ---
Demographics + + + | Address | [address] | | | [place] [address] | + + + | Home Phone | | + + + | Preferred Language | Unknown | + + + | Marital Status | Single | + + + | Anglican Affiliation | NON | + + + | Race | White | + + + | Ethnic Group | Not or | + + + Author + + + | Author | [facility] | + + + | Organization | [facility] | + + + | Address | Unknown | + + + | Phone | Unavailable | + + + Support + + + + + | Name | Relationship | Address | Phone | + + + + + | Debora Resendiz | ECON | [address] | | | | | [place] | | | | | [address] | | + + + + + [...] Team Providers + +------+ + | Care Band Shover Name | Role | Phone | + +------+ + | Tracey Galeas MD | PCP | Unavailable | + +------+ + Encounter Details +--------+ + + + + | Date | Type | Department | Care Team | Description | +--------+ + + + + | 11/28/ | Abstract | NON[facility] | Tania Foster MD | | | 2013 | | Department | [address] | | | | | | [address] [place], | | | | | | [place] [address] | | | | | | [phone] | | | | | | | | +--------+ + + + [...]
--- OUTSIDE RECORDS SUMMARY | ~2019-02-23 | XMS | Encounter Summary ---
Demographics + + + | Address | [address] | | | [place] [address] | + + + | Home Phone [...] + | Debora Resendiz | ECON | [address] | | | | | [place] | | | | | [address] | | + + + + + [...] Team Providers + +------+ + | Care Automobile Mechanic Radiator Name | Role | Phone | + [...] | +--------+ + + + + | 03/11/ | Telephone | Pediatric | Tnaia Foster MD | Test Results | | 2011 | | Gastroenterology at | [address] | | | | | [place] | [address] [place], | | | | | [facility] | [place] [address] | | | | | [address] [facility] | [phone] | | | | | Mailcode: SU[address]AR | | | | | | [address] | | | | | | [place], [place] | | | | | | [address] | | | | | | [phone] | | | +--------+ + + + [...]
--- OUTSIDE RECORDS SUMMARY | ~2019-02-23 | XMS | Encounter Summary ---
Demographics + + + | Address | [address] | | | [place] [address] | + + + | Home Phone [...] Author + + + | Author | [facility] | + + + | Organization | [facility] | + + + | Address | Unknown | + + + | Phone | Unavailable | + + + Support + + + + + | Name | Relationship | Address | Phone | + + + + + | Debora Resendiz | ECON | [address] | | | | | [place] | | | | | [address] | | + + + + + [...] Team Providers + +------+ + | Care Nut Picker Name | Role | Phone | + +------+ + | Tracey Galeas MD | PCP | Unavailable | + +------+ + Reason for Visit + + + | Reason | Comments | + + + | Question | forgetfulness | + + + Encounter Details +--------+ + + + + | Date | Type | Department | Care Team | Description | +--------+ + + + + | 07/06/ | Telephone | Pediatric | Tania Foster MD | Question | | 2012 | | Gastroenterology at | [address] | (forgetfulness) | | | | [place] | [address] [place], | | | | | [facility] | [place] [address] | | | | | [address] [place] [address] | [phone] | | | | | Mailcode: [id number] | | | | | | [place] | | | | | | [place], [place] | | | | | | [address] | | | | | | [phone] | | | +--------+ + + + [...]
--- OUTSIDE RECORDS SUMMARY | ~2019-02-23 | XMS | Encounter Summary ---
Demographics + + + | Address | [address] | | | [place] [address] | + + + | Home Phone | | + + + | Preferred Language | Unknown | + + + | Marital Status | Single | + + + | Mu-Ism Affiliation | NON | + + + | Race | White | + + + | Ethnic Group | Not or | + + + Author + + + | Author | [facility] | + + + | Organization | [facility] | + + + | Address | Unknown | + + + | Phone | Unavailable | + + + Support + + + + + | Name | Relationship | Address | Phone | + + + + + | Debora Resendiz | ECON | [address] | | | | | [place] | | | | | [address] | | + + + + + [...] Team Providers + +------+ + | Care Ledge Man Name | Role | Phone | + +------+ + PCP | Unavailable | + +------+ + Reason for Visit + + + | Reason | Comments | + + + | New patient | 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 Vision is OK with current glasses. Denies pain or | | | discomfort. NO itchiness, tearing or excess mucous discharge | | | (minimal upon waking at times per mom). Mom denies any congenital | | | infections specifically syphilis. | + + + Office Visit - E/M Services (Routine) +--------+--------+ + + + + | Status | Reason | Specialty | Diagnoses / | Referred By | Referred To | | | | | Procedures | Contact | Contact | +--------+--------+ + + + + | Closed | | Ophthalmology | | , | Vandana | | | | | | MD Clarissa | MD Angelo | | | | | | [facility] | [address] | | | | | | [facility]ARE | [facility] | | | | | [facility] | [place] | | | | | | [address] | [place], [place] | | | | | | [place] | [address] | | | | | | [place] [address] | | | | | | | [facility] | | | | | | | [address] | | | | | | | Phone: | | | | | | | [phone] | | | | | | | Fax: | | | | | | | [phone] | | +--------+--------+ + + + + Encounter Details +--------+---------+ + + + | Date | Type | Department | Care Team | Description | +--------+---------+ + + + | 11/30/ | Office | [facility] | Angelo Ross, | Corneal Scar; | | 2007 | Visit | [place] | MD | Unspecified | | | | Kelechi Bryant [address] | | Keratitis | | | | [place] | | | | | | Mailcode: [address] | | | | | | [place] [address] | | | | | | [phone] | | | +--------+---------+ + + + [...] + + documented as of this encounter Progress Notes Lázaro Serrano - 12/01/2007 2:16 PM PDT 12/01/2007 HISTORY: Referred by: CLARISSA BRANDT MD [facility] [address] [place] [address] 12 y.o. 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 Vision is OK with cur rent glasses. Denies pain or discomfort. NO itchiness, tearing or excess mucous discharge (m inimal upon waking at times per mom). Mom denies any congenital infections specifically syph ilis. Pain: No pain (0 of 0-10) Past ocular history: Accommodative disorder Family ocular history:glaucoma (great grandmother) PCP: No primary provider on file. Medical history: Past Medical History Diagnosis Date Unspecified Disorder of Refraction and Accommodation Surgical history: Past Surgical History Procedure Date Hx back surgery Tonsillectomy All medications: Current outpatient prescriptions Medication Sig PREVACID ORAL None Entered TYLENOL 325 mg Oral Tablet None Entered Allergies: Review of patient's allergies indicates no known allergies. Review of systems: Medications, allergies, medical, surgical and family history were review ed by me at this visit. The items not checked "yes" in the medical and surgery history grid were negative. EXAMINATION: Visual acuity CC PH Right eye 20/30 20/25 Left eye 20/20 20/NT RE LE IOP (Tonopen) 18 mm hg 18 mm hg @ 2:29 PM Pupils equal, round, nl reactivity, no APD equal, round, nl reactivity, no APD CVF Normal, all quadrants Normal, all quadrants Eye Movements Normal, all positions without pain Normal, all positions without pain Patient dilation deferred. Patient screened by Jeb Juarez Mental status: Alert, oriented. External OD OS Orbit Normal Jasvir 15, 15 at 105, no exophthalmos Normal, no exophthalmos Lacrimal normal normal Slit lamp exam. OD OS Lids normal normal Conjunctiva Tortuous episcleral vessels, nasal and temporal clear Cornea Stromal ghost vessels 360. 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 Brandt If progression of stromal vessels, would recommend topical steroids Letter [facility] Dr[facility] Treatment Not on filedocumented as of this encounter Visit Diagnoses + + | Diagnosis | + + | Corneal scar Corneal opacity, unspecified | + + | Unspecified keratitis | + + documented in this encounter
--- OUTSIDE RECORDS SUMMARY | ~2019-02-23 | XMS | Encounter Summary ---
Demographics + + + | Address | [address] | | | [place] [address] | + + + | Home Phone | | + + + | Preferred Language | Unknown | + + + | Marital Status | Single | + + + | Islam Affiliation | NON | + + + [...] + | Debora Resendiz | ECON | [address] | | | | | [place] | | | | | [address] | | + + + + + | Quang Resendiz | ECON | Unknown | | + + + + + | Vesna Hrenandez | ECON | Unknown | | + + + + + | Pradeep Hyatt | ECON | Unknown | Unavailable | + + + + + | Lonnie Hyatt | ECON | Unknown | Unavailable | + + + + + | Jeremias | ECON | Unknown | | + + + + + Care Team Providers + +------+ + | Care Restaurant Kitchen And Service Manager Name | Role | Phone | + +------+ + | Tracey Galeas MD | PCP | Unavailable | + +------+ + Encounter Details +--------+ + + + + | Date | Type | Department | Care Team | Description | +--------+ + + + + | / | Abstract | Pediatric | Tania Camp MD | | | 2011 | | Gastroenterology at | [address] | | | | | [place] | [address] [facility] [facility] | | | | | [facility] | [place] [address] | | | | | [address] [facility] [facility] | [phone] | | | | | Mailcode: [address] | | | | | | [place] | | | | | | [place], [place] | | | | | | [address] | | | | | | [phone] | | | +--------+ + + + [...] documented as of this encounter Progress Notes Tania Camp MD - 04/28/2011 6:12 PM PST Addended by: TANIA CAMP MD, V on: 04/28/2011 06:1 2 PM Modules accepted: Medications documented in this en counter Plan of Treatment Not on filedocumented as [...] + | CBC, WITH | Routin | 04/22/2011 | | Results for this | | DIFFERENTIAL | e | 3:20 PM | | procedure are in the | | | | PST | | results section. | + +--------+ + + + | LIVER SET | Routin | 04/22/2011 | | Results for this | | (AST,ALT,BILI | e | 3:20 PM | | procedure are in the | | TOTAL,BILI | | PST | | results section. | | DIRECT,ALK | | | | | | PHOS,ALB,PROT TOTAL) | | | | | + +--------+ + + + documented in this encounter Results THIOPURINE METABOLITES (04/22/2011 3:20 PM PST) + + + + + + | Component | Value | Ref Range | Performed | Pathologist | | | | | At | Signature | + + + + + + | 6-TGN | 184 (A) | 230 - 400 | [facility] | | | (THIOPURINE | | pmol/8x10 8 RBC | LABORATORIE | | | | | | S | | | METABOLITE) | | | | | + + + + + + | 6-TGN | Lower Likelihood of | | [facility] | | | ASSESSMENT | Response | | LABORATORIE | | | | | | S | | + + + + + + | 6-MMPN | 819 | < - 5,700 | [facility] | | | (THIOPURINE | | pmol/8x10 8 RBC | LABORATORIE | | | | | | S | | | METABOLITE) | | | | | + + + + + + | 6-MMPN | Lower Risk of | | [facility] | | | ASSESSMENT | Hepatotoxicity | | LABORATORIE | | | | | | S | | + + + + + + + + | Specimen | + + | | + + + + + + + | Performing | Address | City/State/Zipcode | Phone Number | | Organization | | | | + + + + + | [facility] | [address] | [place] [address] | | | LABORATORIES | [address] | | | + + + + + CBC, WITH DIFFERENTIAL (04/22/2011 3:20 PM PST) + + + + + + | Component | Value | Ref Range | Performed | Pathologist | | | | | At | Signature | + + + + + + | WHITE CELL | 12.3 (A) | 4.0 - 10.5 K/cu | [facility] | | | COUNT | | mm | [facility] | | | | | | [place] | | + + + + + + | RED CELL | 5.40 | 4.00 - 5.50 | [facility] | | | COUNT | | M/cu mm | [facility] | | | | | | [place] | | + + + + + + | HEMOGLOBIN | 12.2 (A) | 13.0 - 17.0 | [facility] | | | | | g/dL | [facility] | | | | | | [place] | | + + + + + + | HEMATOCRIT | 38.2 (A) | 370 - 50.0 % | [facility] | | | | | | [facility] | | | | | | [place] | | + + + + + + | MCV | 70.7 (A) | 82.0 - 100.0 fL | [facility] | | | | | | [facility] - | | | | | | [place] | | + + + + + + | MCH | 22.6 (A) | 28.0 - 35.0 pg | [facility] | | | | | | [facility] - | | | | | | [place] | | + + + + + + | MCHC | 31.9 | 31.0 - 36.5 | [facility] | | | | | g/dL | [facility] | | | | | | [place] | | + + + + + + | PLATELET | 347 | 140 - 375 K/cu | [facility] | | | COUNT | | mm | [facility] | | | | | | [place] | | + + + + + + | NEUTROPHIL | 81.5 | % | [facility] | | | % | | | [facility] - | | | | | | [place] | | + + + + + + | LYMPHOCYTE | 9.5 | % | [facility] - | | | % | | | [facility] - | | | | | | [place] | | + + + + + + | MONOCYTE % | 8.4 | % | [facility] | | | | | | [facility] - | | | | | | [place] | | + + + + + + | EOS % | 0.3 | % | [facility] | | | | | | [facility] - | | | | | | [place] | | + + + + + + | BASO % | 0.3 | % | [facility] | | | | | | [facility] - | | | | | | [place] | | + + + + + + | RDW | 17.2 (A) | 11.0 - 14.5 % | [facility] | | | | | | [facility] - | | | | | | [place] | | + + + + + + | MPV | 9.2 | 8.6 - 12.0 fL | [facility] | | | | | | [facility] - | | | | | | [place] | | + + + + + + | NEUTROPHIL | 10.02 (A) | 1.80 - 8.30 | [facility] | | | # | | K/cu mm | [facility] | | | | | | [place] | | + + + + + + | LYMPHOCYTE | 1.17 (A) | 100 - 4.80 K/cu | [facility] | | | # | | mm | [facility] | | | | | | [place] | | + + + + + + | MONOCYTE # | 1.03 (A) | 0.00 - 0.90 | [facility] | | | | | K/cu mm | [facility] | | | | | | [place] | | + + + + + + | EOS # | 0.04 | 0.00 - 0.40 | [facility] | | | | | K/cu mm | [facility] - | | | | | | [place] | | + + + + + + | BASO # | 0.04 | 0.00 - 0.20 | [facility] | | | | | | [facility] - | | | | | | [place] | | + + + + + + + + | Specimen | + + | Blood - Blood | + + + + + + + | Performing | Address | City/State/Zipcode | Phone Number | | Organization | | | | + + + + + | [facility] | [address] | [place] [address] | | | [place] | | | | + + + + + LIVER SET (AST,ALT,BILI TOTAL,BILI DIRECT,ALK PHOS,ALB,PROT TOTAL) (04/22/2011 3:20 PM PST ) + +-------+ + + + | Component | Value | Ref Range | Performed | Pathologist | | | | | At | Signature | + +-------+ + + + | BILIRUBIN | 0.2 | < - 1.2 | [facility] | | | TOTAL | | Transcutaneous | [facility] - | | | | | Bilirubinometer | [place] | | + +-------+ + + + | ALK PHOS | 173 | 100 - 390 U/L | [facility] | | | | | | [facility] - | | | | | | [place] | | + +-------+ + + + | TOTAL | 6.9 | 6.4 - 8.3 g/dL | [facility] - | | | PROTEIN, | | | [facility] - | | | PLASMA | | | [place] | | | (LAB) | | | | | + +-------+ + + + | BILIRUBIN | <0.1 | < - 0.4 mg/dL | [facility] - | | | DIRECT | | | [facility] - | | | | | | [place] | | + +-------+ + + + | ALBUMIN, | 4.2 | 3.40 - 5.2 g/dL | [facility] - | | | PLASMA | | | [facility] - | | | (LAB) | | | [place] | | + +-------+ + + + | AST(SGOT) | 17 | 5 - 43 U/L | [facility] | | | | | | [facility] - | | | | | | [place] | | + +-------+ + + + | ALT (SGPT) | 13 | 10 - 58 U/L | [facility] | | | | | | [facility] - | | | | | | [place] | | + +-------+ + + + | AST CMNT | | | [facility] | | | | | | [facility] - | | | | | | [place] | | + +-------+ + + + | BILI D CMNT | | | [facility] | | | | | | [facility] - | | | | | | [place] | | + +-------+ + + + | BILI T CMNT | | | [facility] | | | | | | [facility] - | | | | | | [place] | | + +-------+ + + + + + | Specimen | + + | Blood - Blood | + + + + + + + | Performing | Address | City/State/Zipcode | Phone Number | | Organization | | | | + + + + + | [facility] | [address] | [place] [address] | | | [place] | | | | + + + + + documented in this encounter Visit Diagnoses + + | Diagnosis | + + | Crohn's disease, small and large intestine (HCC) - Primary Regional enteritis of | | small intestine with large intestine | + + documented in this encounter"
--- OUTSIDE RECORDS SUMMARY | ~2019-02-23 | XMS | Encounter Summary ---
Demographics + + + | Address | [address] | | | [place] [address] | + + + | Home Phone [...] + | Debora Resendiz | ECON | [address] | | | | | [place] | | | | | [address] | | + + + + + [...] Team Providers + +------+ + | Care Senior Data Warehouse Developer Name | Role | Phone | + [...] | | | [place] | [address] [facility] | | | | | [facility] | [place] [address] | | | | | [address] | [phone] | | | | | Mailcode: [facility] | | | | | | [place] | | | | | | [place], [place] | | | | | | [address] | | | | | | [phone] | | | +--------+ + + + [...]
--- OUTSIDE RECORDS SUMMARY | ~2019-02-23 | XMS | Encounter Summary ---
Demographics + + + | Address | [address] | | | [place] [address] | + + + | Home Phone | | + + + | Preferred Language | Unknown | + + + | Marital Status | Single | + + + | Uatsdin Affiliation | NON | + + + | Race | White | + + + | Ethnic Group | Not or | + + + Author + + + | Author | [facility] | + + + | Organization | [facility] | + + + | Address | Unknown | + + + | Phone | Unavailable | + + + Support + + + + + | Name | Relationship | Address | Phone | + + + + + | Debora Resendiz | ECON | [address] | | | | | [place] | | | | | [address] | | + + + + + [...] Providers + +------+ + | Care Manager Completions Name | Role | Phone | + +------+ + | Tracey Galeas MD | PCP | Unavailable | + +------+ + Reason for Visit +--------+ + | Reason | Comments | +--------+ + | Other | update med list | +--------+ + Encounter Details +--------+ + + + + | Date | Type | Department | Care Team | Description | +--------+ + + + + | 02/10/ | Documentati | Pediatric | Tania Foster MD | Other (update med | | 2012 | on | Gastroenterology at | [address] | list) | | | | [place] | [address] Ye[address] [place], | | | | | [facility] | [place] [address] | | | | | [address] [facility] | [phone] | | | | | Mailcode: [facility] | | | | | | [place] | | | | | | [place], [place] | | | | | | [address] | | | | | | [phone] | | | +--------+ + + + [...]
--- OUTSIDE RECORDS SUMMARY | ~2019-02-23 | XMS | Encounter Summary ---
Demographics + + + | Address | [address] | | | [place] [address] | + + + | Home Phone [...] + | Debora Resendiz | ECON | [address] | | | | | [place] | | | | | [address] | | + + + + + [...] Team Providers + +------+ + | Care Property Maintenance Supervisor Name | Role | Phone | + +------+ + | Tracey Galeas MD | PCP | Unavailable | + +------+ + Reason for Visit + + + | Reason | Comments | + + + | Patient education | | + + + Encounter Details +--------+ + + + + | Date | Type | Department | Care Team | Description | +--------+ + + + + | 10/18/ | Clinical | Pediatric | [facility] | Patient education | | 2013 | Support | Gastroenterology at | [address] | | | | Staff | [place] | [facility] | | | | | [facility] | [place] [address] | | | | | [address] [facility] | | | | | | Mailcode: [facility] | | | | | | [place] | | | | | | [place], [place] | | | | | | [address] | | | | | | [phone] | | | +--------+ + + + [...] documented as of this encounter Progress Notes Ana Higgins, RN - 10/18/2012 12:30 PM PDTHumira teaching completed with patient and terra graham Debora Resendiz. Spent 30 minutes teaching pt and family. Prior to teaching, RN reviewed that: 1. Verified TB status negative with skin test. 2. Hep B status negative, had 3 series immunizations. Recommended to pt mother that pt be given booster per Dr. Foster recommendation. Mother verbalized understanding, will take pt t o PCP to have this done. Patient and mother verbalized understanding with regards to the followin. Pt and family referred to [employer] for free sharps container, access to on-line ins truction and medication information. 2. Humira is a biologic medicine that will decrease pt immunity. It is given SQ. Biggest risk is risk of infection. Do not administer if pt has fever, cough, open sores, or any si gn of infection. Pt is to call the clinic if any sign of infection, DO NOT GIVE DOSE if the re are signs of infection. 3. Store in fridge, do not freeze, do not give if frozen or thawed. 4. Check vial prior to giving: clear, no cracks, no floaties or particles, glass chamber s o do not give if dropped. Do not give dose if particles present, cloudy, discolored. 5. Check expiration date and dose on vial. Check vial against prescription for correct do se. Do not give if incorrect dose or . Pt current dose today is 80mg, dose given af ter that will be 40mg every 2 weeks SQ. Instructed to give on same date/time each 2 weeks. If pt forgets a dose, give as soon as remembers. 6. Do not reuse syringe. 7. Site selection: Abdomen 2 inches around belly button, top of thighs, referred to diagr am in patient brochure in humira box. Reviewed site rotation, do not give in a site that is sore, red, bruised, tender, scarred, has stretch carty. Explained how to inject and watched patient perform the following correctly: 1. Wash hands 2. Select site, clean with alcohol swab and allow to dry. 3. Remove cap off of needle, do not touch needle once cap is off, keep sterile. 4. Push air bubble out of vial while holding syringe with needle pointing up. 5. Pinch skin, push needle in at 45 degree angle, pull back on plunger to check for blood. 6. If blood present, do not inject medicine. Throw away humira syringe. Start injection over with new humira syringe. 7. If no blood present, push medication all the way in, remove needle, cover with cotton b all. Do not massage. 8. Dispose of needle in approved sharps container. Reviewed common side effects: 1. Injection site reactions 2. URI/sinus infections 3. Headaches 4. Rash 5. Nausea Questions answered. documented in this enco unter Plan of [...]
--- OUTSIDE RECORDS SUMMARY | ~2019-02-23 | XMS | Encounter Summary ---
Demographics + + + | Address | [address] | | | [place] [address] | + + + | Home Phone | | + + + | Preferred Language | Unknown | + + + | Marital Status | Single | + + + | Christianity Affiliation | NON | + + + [...] + | Debora Resendiz | ECON | [address] | | | | | [place] | | | | | [address] | | + + + + + [...] Team Providers + +------+ + | Care Parking Meter Installer Name | Role | Phone | + +------+ + | Tracey Galeas MD | PCP | Unavailable | + +------+ + Encounter Details +--------+ + + + + | Date | Type | Department | Care Team | Description | +--------+ + + + + | 02/01/ | MyChart | Pediatric | Tania Foster MD | RE: Remclaudiade | | 2011 | Encounter | Gastroenterology at | [address] | | | | | [place] | [address]inia Ye[address] [place], | | | | | [facility] | [place] [address] | | | | | [address] | [phone] | | | | | Mailcode: [facility] | | | | | | [place] | | | | | | [place], [place] | | | | | | [address] | | | | | | [phone] | | | +--------+ + + + [...]
--- OUTSIDE RECORDS SUMMARY | ~2019-02-23 | XMS | Encounter Summary ---
Demographics + + + | Address | [address] | | | [place] [address] | + + + | Home Phone | | + + + | Preferred Language | Unknown | + + + | Marital Status | Single | + + + | Mormon Affiliation | NON | + + + | Race | White | + + + | Ethnic Group | Not or | + + + Author + + + | Author | [facility] | + + + | Organization | [facility] | + + + | Address | Unknown | + + + | Phone | Unavailable | + + + Support + + + + + | Name | Relationship | Address | Phone | + + + + + | Debora Resendiz | ECON | [address] | | | | | [place] | | | | | [address] | | + + + + + [...] Team Providers + +------+ + | Care Cnc Set Up Operator Name | Role | Phone | [...] + + + + | 01/04/ | Anesthesia | 8S INTRA OP | Morgan Hager | | | 2013 | Event | [place] | [facility] [address] | | | | | [facility] | [address] | | | | | [facility] | [place], [place] | | | | | Desk Once | [address] | | | | | admitted, go to the | [phone] | | | | | 8th floor Surgical | | | | | | Desk Located at the | [address], | | | | | [address] [place] [address] | [address] | | | | | [address] [place], | [address] | | | | | [place] [address] | [place], [place] | | | | | | [address] | | | | | | [phone] | | | | | | | | +--------+ + + + + Anesthesia Record + + + + + | Procedure Name | Responsible | Anesthesia Start | Anesthesia Stop Time | | | Anesthesiologist | Time | | + + + + + | EGD WITH BIOPSY | Morgan Hager, | 01/04/14 0914 | 01/04/14 1005 | | SPECIEMEN X 5 SENT | MD | | | | TO PATHOLOGY | | | | | SPECIMEN X 2 SENT TO | | | | | [facility] (N/A | | | | | Other) | | | | + + + + + +----+---+ + + | Da | T | Event | Comment | | te | i | | | | | m | | | | | e | | | +----+---+ + + | 11 | 0 | Eq Check | Anesthesia machine checked Equipment verified | | /1 | 9 | | | | 2/ | 0 | | | | 20 | 4 | | | | 14 | | | | +----+---+ + + | | 0 | Pt. Check | Prior to anesthesia start, pt. Identified, examined, chart | | | 9 | | reviewed, PARQ held, anesthetic plan made or approved by | | | 0 | | attending anesthesiologist. NPO status confirmed as appropriate | | | 4 | | for procedure Preoperative evaluation: unchanged | +----+---+ + + | | 0 | Eq Check | Anesthesia machine checked Equipment verified | | | 9 | | | | | 1 | | | | | 4 | | | +----+---+ + + | | 0 | An Start | | | | 9 | | | | | 1 | | | | | 4 | | | +----+---+ + + | | 0 | An Start | | | | 9 | Data | | | | 1 | | | | | 4 | | | +----+---+ + + | | 0 | Vitals | Monitors applied Vital signs checked Patient ready for anesthesia | | | 9 | Checked | | | | 1 | | | | | 7 | | | +----+---+ + + | | 0 | Ready | | | | 9 | | | | | 1 | | | | | 7 | | | +----+---+ + + | | 0 | Abx held | Abx held for Medical Reason: Not ordered | | | 9 | Medical or | | | | 1 | Surgical | | | | 9 | Reason | | +----+---+ + + | | 0 | Timeout | | | | 9 | | | | | 2 | | | | | 1 | | | +----+---+ + + | | 0 | Incision | | | | 9 | | | | | 2 | | | | | 4 | | | +----+---+ + + | | 0 | Surgery end | | | | 9 | | | | | 5 | | | | | 9 | | | +----+---+ + + | | 1 | an stop | | | | 0 | data | | | | 0 | | | | | 2 | | | +----+---+ + + | | 1 | Anesthesia | | | | 0 | End | | | | 0 | | | | | 5 | | | +----+---+ + + +------+ | Meds | +------+ + + + | Name | Total | + + + | midazolam | 2 mg | + + + | fentaNYL | 100 mcg | + + + | propofol INF | 508,955 mcg | + + + | propofol | 150 mg | + + + + + | Name | + + | O2 Flow Rate (Total Liters) | + + + + | No blood administrations on file. | + + +--------+ + + + | Type | Details | Placement | Removal | +--------+ + + + | RETIRE | 06/28/12; 1020; 01/04/14; 1220; | 06/28/12 1020 by | 01/04/14 1220 by | | D - | No; 22G PIV Left AC; 22; Left; | Erin Nguyen RN | Trisha Gilmore RN | | Periph | Antecubital; Lidocaine; No; | | | | eral | Positive | | | | Line | | | | +--------+ + + + | RETIRE | 01/04/14; 0744; 01/04/14; 1220; | 01/04/14 0744 by | 01/04/14 1220 by | | D - | No; 22; Right; Antecubital; None; | Jessi Uriarte RN | Trisha [place], RN | | Periph | No; Positive; 2 | | | | eral | | | | | Line | | | | +--------+ + + + documented in this encounter Social History + +-------+ +--------+------+ | Tobacco [...] Diagnoses Not on filedocumented in this encounter Administered Medications + +--------+ +--------+------+------+ | Medication Order | MAR | Action | Dose | Rate | Site | | | Action | Date | | | | + +--------+ +--------+------+------+ | fentaNYL citrate (PF) | Given | 01/05/20 | 50 mcg | | | | (SUBLIMAZE) injection | | 14 9:20 | | | | | INTRAPROCEDURE PRN, Starting Wed | | AM PST | | | | | 01/04/14 at 0915, Until Wed | | | | | | | 14 at 1002, sedation | | | | | | + +--------+ +--------+------+------+ +-------+ +--------+---+---+ | Given | 20 | 50 mcg | | | | | 14 9:15 | | | | | | AM PST | | | | +-------+ +--------+---+---+ +---+---+ | | | +---+---+ + +-------+ +------+---+---+ | midazolam (VERSED) injection | Given | 01/05/20 | 2 mg | | | | INTRAPROCEDURE PRN, Starting Thu | | 14 9:08 | | | | | 01/04/14 at 0908, Until Wed | | AM PST | | | | | 01/04/14 at 1002, sedation | | | | | | + +-------+ +------+---+---+ +---+---+ | | | +---+---+ + + + + +--------+---+ | propofol (DIPRIVAN) injection | Rate/Dos | 01/05/20 | 175 | 78.02 | | | INTRAPROCEDURE CONTINUOUS PRN, | e Change | 14 9:49 | mcg/kg/m | mL/hr | | | Starting Thu01/04/14 at 0915, | | AM PST | in | | | | Until Thu01/04/14 at 1002 | | | | | | + + + + +--------+---+ +---------+ + +--------+---+ | New Bag | 01/05/20 | 150 | 66.87 | | | | 14 9:15 | mcg/kg/m | mL/hr | | | | AM PST | in | | | +---------+ + +--------+---+ +---+---+ | | | +---+---+ + +-------+ +--------+---+---+ | propofol INTRAPROCEDURE PRN, | Given | 01/05/20 | 150 mg | | | | Starting Thu01/04/14 at 0918, | | 14 9:18 | | | | | Until Thu01/04/14 at 1002 | | AM PST | | | | + +-------+ +--------+---+---+ +---+---+ | | | +---+---+ documented in this encounter"
--- OUTSIDE RECORDS SUMMARY | ~2019-02-23 | XMS | Encounter Summary ---
Demographics + + + | Address | [address] | | | [place] [address] | + + + | Home Phone | | + + + | Preferred Language | Unknown | + + + | Marital Status | Single | + + + | Rastafarian Affiliation | NON | + + + | Race | White | + + + | Ethnic Group | Not or | + + + Author + + + | Author | [facility] | + + + | Organization | [facility] | + + + | Address | Unknown | + + + | Phone | Unavailable | + + + Support + + + + + | Name | Relationship | Address | Phone | + + + + + | Debora Resendiz | ECON | [address] | | | | | [place] | | | | | [address] | | + + + + + [...] Team Providers + +------+ + | Care Revenue Integrity Analyst Name | Role | Phone | + +------+ + | Tracey Galeas MD | PCP | Unavailable | + +------+ + Encounter Details +--------+ + + + + | Date | Type | Department | Care Team | Description | +--------+ + + + + | 12/07/ | MyChart | Pediatric | Tania Foster MD | RE: Flu shot | | 2012 | Encounter | Gastroenterology at | [address] | | | | | [place] | [address] [place], | | | | | [facility] | [place] [address] | | | | | [address] | [phone] | | | | | Mailcode: [facility] | | | | | | [place] | | | | | | [place], [place] | | | | | | [address] | | | | | | [phone] | | | +--------+ + + + [...]
--- OUTSIDE RECORDS SUMMARY | ~2019-02-23 | XMS | Encounter Summary ---
Demographics + + + | Address | [address] | | | [place] [address] | + + + | Home Phone | | + + + | Preferred Language | Unknown | + + + | Marital Status | Single | + + + | Denominational Affiliation | NON | + + + [...] + | Debora Resendiz | ECON | [address] | | | | | [place] | | | | | [address] | | + + + + + [...] Team Providers + +------+ + | Care Piece Marker Small Arms Name | Role | Phone | + +------+ + | Tracey Galeas MD | PCP | Unavailable | + +------+ + Reason for Visit +--------+ + | Reason | Comments | +--------+ + | Other | violent behavior on Prednisone | +--------+ + Encounter Details +--------+ + + + + | Date | Type | Department | Care Team | Description | +--------+ + + + + | 01/12/ | Telephone | Pediatric | Tania Foster MD | Other (violent | | 2011 | | Gastroenterology at | [address] [facility] | behavior on | | | | [place] | [address] [place], | Prednisone) | | | | [facility] | [place] [address] | | | | | [address] | [phone] | | | | | Mailcode: [facility] | | | | | | [place] | | | | | | [place], [place] | | | | | | [address] | | | | | | [phone] | | | +--------+ + + + [...]
--- OUTSIDE RECORDS SUMMARY | ~2019-02-23 | XMS | Encounter Summary ---
Demographics + + + | Address | [address] | | | [place] [address] | + + + | Home Phone [...] + | Debora Resendiz | ECON | [address] | | | | | [place] | | | | | [address] | | + + + + + [...] Team Providers + +------+ + | Care Pharmacogeneticist Name | Role | Phone | + +------+ + | Tracey Galeas MD | PCP | Unavailable | + +------+ + Reason for Visit + + + | Reason | Comments | + + + | Care Coordination | | + + + Encounter Details +--------+ + + + + | Date | Type | Department | Care Team | Description | +--------+ + + + + | 02/06/ | Telephone | Pediatric | Tania Foster MD | Care Coordination | | 2014 | | Gastroenterology at | [address] | | | | | [place] | [address] [place], | | | | | [facility] | [place] [address] | | | | | [address] | [phone] | | | | | Mailcode: [facility]RCP | | | | | | [place] | | | | | | [place], [place] | | | | | | [address] | | | | | | [phone] | | | +--------+ + + + [...]
--- OUTSIDE RECORDS SUMMARY | ~2019-02-23 | XMS | Encounter Summary ---
Demographics + + + | Address | [address] | | | [place] [address] | + + + | Home Phone [...] Author + + + | Author | [facility] | + + + | Organization | [facility] | + + + | Address | Unknown | + + + | Phone | Unavailable | + + + Support + + + + + | Name | Relationship | Address | Phone | + + + + + | Debora Resendiz | ECON | [address] | | | | | [place] | | | | | [address] | | + + + + + [...] Team Providers + +------+ + | Care Private Branch Exchange Service Adviser Name | Role | Phone | + +------+ + PCP | Unavailable | + +------+ + Reason for Visit Office Visit - E/M Services (Routine) +--------+--------+ + + + + | Status | Reason | Specialty | Diagnoses / | Referred By | Referred To | | | | | Procedures | Contact | Contact | +--------+--------+ + + + + | Closed | | Ophthalmology | | Non-[facility] | Carlo Negro | | | | | | Epic Dept | [facility] | | | | | | | [address] | | | | | | | [address] [place], | | | | | | | [place] [address] | | | | | | | Phone: | | | | | | | [phone] | | | | | | | Fax: | | | | | | | [phone] | +--------+--------+ + + + + Encounter Details +--------+---------+ + + + | Date | Type | Department | Care Team | Description | +--------+---------+ + + + | 05/29/ | Office | [facility] | Carlo Negro | PHPV (Persistent | | 2008 | Visit | [facility] | [address] | Hyperplastic Primary | | | | [address] | [address] [place], | Vitreous) (Primary | | | | [place] | [place] [address] | Dx) | | | | Mailcode: [facility] | [phone] | | | | | [place] [address] | | | | | | [phone] | | | +--------+---------+ + + + [...] documented as of this encounter Progress Notes Batool Damian - 05/29/2008 1:50 PM PDT Retina Division Progress Note: CC: Follow up visit HPI: Jeremias Admaes is a 12 y.o. 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 Pt returns with continued headaches, no VA changes from previous visit. POHx: Worn glasses since 8 years old. 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 He had a sepsis workup in the NICU for 4 days. Re-hospitalized at 9 days of life for respiratory distress Born term, 9 pounds 11" Several episodes of bronchitis Penis with meatus stenosis surgery at 7 years Had surgery on his back for tethered cord related problem. 06/2007 Past Medical History Diagnosis Date Unspecified Disorder of Refraction and Accommodation SH: lives with family FH :Glaucoma, grandmother ROS: A review of constitutional, ophthalmic, otolaryngologic, integumentary, cardiovascular , respiratory, gastrointestinal, genitourinary, neurologic, musculoskeletal, and psychiatric systems were negative except as noted above or in the new patient questionaire. Referring Mark mohan: Dr. Aamir Franks (Saw in 04/03 - No change vs. her prior exam) Primary Care Provider: Dr Veronica MORELOS: none No Known Allergies. Current outpatient prescriptions Medication Sig PREVACID ORAL None Entered Examination: 11/15/2007 [facility] sc Va cc PH IOP 2:28 PM Right Eye / 20/40 20/30+ 19 Left Eye / 20/20 20/20 19 05/29/2008 Va sc Va cc PH IOP 2:03 PM Right Eye / 20/30-1 NI 19 Left Eye / 20/20-2 NI 13 Pupils were equally reactive without relative afferent pupillary defect. Alert and oriented times 4. Both eyes dilated with Mydriacyl and Neosynephrine OU @ 2:03 PM by Batool Damian Chart Notes Reviewed by Dr. Prieto SLE OD OS Lids Unremarkable Unremarkable Conjunctiva Telangiectasia of interpalpebral vessels White and quiet Cornea Deep stromal ghost vessels Few deep stromal ghost vessels AC Deep and quiet Deep and quiet Iris Normal Normal Lens Clear Clear Ant Vit Anterior vitreous strand to posterior capsule Clear DFE: Ophthalmoscopy of the right eye disclosed normal disc, macula, vessels, and peripery. A vit reous stalk is present in cloquet's cannal extending to lens. Some condensed vitreous is pre sent inferiorly Ophthalmoscopy of the left eye disclosed normal disc, macula, vessels, and periphery. The cup-to-disc ratio was 0.2 in the right eye and 0.3 in the left. No diagnostics ordered at this encounter. IMPRESSION: 1. Persistant vasculature variant, no hemorrhage seen. No optic nerve or macular tra ction 2. No sign of active chorioretinitis 3. 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 | + +--------+ + + + | ANESTHESIA/SEDATION | | 11/09/2009 | | Results for this | | | | 12:00 AM | | procedure are in the | | | | PDT | | results section. 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
--- OUTSIDE RECORDS SUMMARY | ~2019-02-23 | XMS | Encounter Summary ---
Demographics + + + | Address | [address] | | | [place] [address] | + + + | Home Phone | | + + + | Preferred Language | Unknown | + + + | Marital Status | Single | + + + | Jain Affiliation | NON | + + + | Race | White | + + + | Ethnic Group | Not or | + + + Author + + + | Author | [facility] | + + + | Organization | [facility] | + + + | Address | Unknown | + + + | Phone | Unavailable | + + + Support + + + + + | Name | Relationship | Address | Phone | + + + + + | Debora Resendiz | ECON | [address] | | | | | [place] | | | | | [address] | | + + + + + [...] Team Providers + +------+ + | Care Area Field Worker Name | Role | Phone | + +------+ + | Tracey Galeas MD | PCP | Unavailable | + +------+ + Encounter Details +--------+ + + + + | Date | Type | Department | Care Team | Description | +--------+ + + + + | 04/18/ | Documentati | SOCIAL WORK | Leonor Donohue, | | | 2013 | on | AMBULATORY [address] | EQUIPMENT OPERATOR/LABORER [address] | | | | | [address] | [address] | | | | | Mailcode: CH6A | [place], [place] | | | | | [place], [place] | [address] | | | | | [address] | [phone] | | | | | [phone] | | | +--------+ + + + [...]
--- OUTSIDE RECORDS SUMMARY | ~2019-02-23 | XMS | Encounter Summary ---
Demographics + + + | Address | [address] | | | [place] [address] | + + + | Home Phone | | + + + | Preferred Language | Unknown | + + + | Marital Status | Single | + + + | Voodoo Affiliation | NON | + + + | Race | White | + + + | Ethnic Group | Not or | + + + Author + + + | Author | [facility] | + + + | Organization | [facility] | + + + | Address | Unknown | + + + | Phone | Unavailable | + + + Support + + + + + | Name | Relationship | Address | Phone | + + + + + | Debora Resendiz | ECON | [address] | | | | | [place] | | | | | [address] | | + + + + + [...] Team Providers + +------+ + | Care Shed Hand Name | Role | Phone | + [...] | | Required | ogy | | [place] | [place] | | | | | | [facility] | Mailcode: | | | | | | [place] | [facility] | | | | | | [address] | [address] | | | | | | [address] | [place], [place] | | | | [address] | [address] | | | | | | [place], | Phone: | | | | | | [place] [address] | [phone] | | | | | | | Fax: | | | | | | | [phone] | +--------+ + + + + + Encounter Details +--------+---------+ + + + | Date | Type | Department | Care Team | Description | +--------+---------+ + + + | 01/18/ | Office | Pediatric | Tania Camp MD | Crohn's disease, | | 2012 | Visit | Gastroenterology at | [address] | small and large | | | | [place] | [address] [place], | intestine with | | | | [facility] | [place] [address] | granuloma in the | | | | [address] | [phone] | colon, severe | | | | Mailcode: [facility] | | duodenitis (Primary | | | | [address] | | Dx) | | | | [place], [place] | | | | | | [address] | | | | | | [phone] | | | +--------+---------+ + + + [...] + + + | Blood Pressure | 141/74 | 01/18/2013 2:38 PM | | | | | PST | | + + + + + | Pulse | 69 | 01/18/2013 2:38 PM | | | | | PST [...] + + + + | Weight | 73 kg (160 lb 15 oz) | 01/18/2013 2:38 PM | | | | | PST | | + + + + + | Height | - | - | | + + + + + | Body Mass Index | - | - | | + + + + + documented in this encounter Patient Instructions Patient Instructions Tania Camp MD - 01/18/2013 2:53 PM PSTPlan: No change in meds until summer - then will talk about stopping Lialda after stool studies. Follow-up: Please schedule your next GI visit in: 3 months What is the plan if the studies are normal for my child? Please make a clinic appointment with me to discuss the plan if studies are normal, and if recommended diet changes or other therapy do not resolve the symptoms. Education: For information on GI and nutrition topics, please check out excellent online websites such as: [employer]org [employer]/GI FAAN.org for information on food allergies For Liver Diseases: AASLD [employer] offer excellent information. For those with inflammatory bowel disease (Crohn's or ulcerative colitis): CCFA.org http://www.youandibd.com/en/understanding-ibd/azdxcpwlksmdl-etg-czmsb-and-benef jrx-im-qrm-therapies.html Results of tests: Results of laboratory tests, biopsies or Xrays will be sent to you by [facility]. Please ask at the front end drupal developer for the code and instructions on how to sign up for this. If you do not have internet access, results will be sent by mail. Questions: If you have non-urgent questions, please send through [facility]. For urgent questions, please call the [facility] GI office at [phone]. documented in this encounter Progress Notes Tania Camp MD - 01/18/2013 2:48 PM PST PEDIATRIC GASTROENTEROLOGY CONSULTATION, ONGOING MANAGEMENT Jeremias Adames is an 17 y.o. male, who is referred by Tracey Galeas to Pediatric GI [facility] for ongoing management for the following chief complaint, Crohn's disease. Patient has the following medical problems: Patient Active [...] with inflammatory bowel disease Fatigue Asthma, allergic Interpretor used? no Interval history: Jeremias Adames was accompanied in the visit by father. Since we last saw the patient, they state that he has little abdominal pain, has a good selena etite/energy, and has only 1 BM daily, without blood or mucus.. Past lab, pathology or imaging studies reviewed?: yes and growth curve. ROS: Any persistent fevers? no Has weight/growth been stable? yes Any new respiratory symptoms such as persistent cough? no Rest of ROS is the same as reported in the initial consultation except as noted above Family history changes? no Social history: Lives with GRANDparents - . Any change in patient's medicines since we last saw them? Not recently Current Outpatient Prescriptions Medication Sig adalimumab (HUMIRA) [...] Units by mouth every sev en days. cyanocobalamin 1,000 mcg/mL injection solution INJ '1000 MCG' SQ ONE TIME DAILY X7D, TN '100 MCG' SQ ONCE WEEKLY X4W loratadine 10 mg oral tablet Infusion pre-med: Take 1 tablet by mouth 30 minutes prior to infusion Mesalamine (LIALDA) 1.2 g oral tablet,delayed release (DR/EC) Take 2 tablets by mouth o nce daily. Indications: CROHN'S DISEASE MULTIVITAMIN ORAL Take by mouth. Take 1 tablet by mouth Daily. omeprazole (PRILOSEC) 20 mg Oral capsule,delayed release(DR/EC) Take 2 Caps by mouth on ce daily in the morning. No current facility-administered medications for this visit. No Known Allergies Ht 1.747 m (5' 8.78") (52%, Z = 0.05), Wt 73 kg (160 lb 15 oz) (81%, Z = 0.87), BP 141/74, Pulse 69, BMI 23.92 kg/(m^2). 82%ile (Z=0.92) based on [facility] 2-20 Years BMI-for-age data. Examination: Appearance: alert, active and in no apparent distress. Skin: turgor normal, capillary refill brisk, no rashes, petechiae HEENT: normocephalic,PERRLA , sclera anicteric,nose without discharge, mouth no aphthous le sions, mucous membranes moist, pharynx unremarkable Neck: supple, without thyromegaly Chest: clear to auscultation bilaterally. CV: regular sinus rhythm, normal S1 and S2, no murmurs. Abdomen: normal bowel sounds, soft, no distention, no tenderness to palpation, no rebound or guarding, no palpable masses, no hepatosplenomegaly Musculoskeletal: grossly intact without clubbing or edema Neuro: gait and speech normal Nodes: no signficant cervical or supraclavicular adenopathy Psychiatric- affect normal Patient reports a pain level of 0 today. ___ No action required ___ See assessment and plan ASSESSMENT & PLAN: This is a patient with the following conditions: Patient Active Problem List Diagnosis Weight loss Diarrhea Heartburn Abdominal pain, acute, right upper quadrant Nausea Crohn's disease, small and large intestine with 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, severe duodenit is Gastric ulcer Anorexia Helicobacter positive gastritis High risk medications (not anticoagulants) long-term use Hematochezia Vitamin B12 deficiency Excessive thirst Neutropenia Arthritis associated with inflammatory bowel disease Fatigue Asthma, allergic 1. Crohn's of antrum, duodenum and colon doing well on Humira. Will consider weaning off Lialda in the summer, but will need a calprotectin in the spring first. 2. Low vitamin B 12 - recheck level. He should have IM shots monthly until that improves. Health care maintenance issues addressed: Labs every 3 months Recheck hep B surf ab after boosters Psychosocial / economic issues that may affect patient's medical care or well-being: Viol ent outbursts at home; moved in with grandparents Co-morbidities for future sedation: none The following medications were changed: none No changes were made in the remaining listed GI medications. The After Visit Summary outlined the plan and follow-up for the family as follows: Consider weaning off Lialda in summer after checking spring calprotecin. We appreciate the opportunity to participate in the medical care of this patient and family . If you have any questions, please do not hesitate to call. In this 40 minute clinic visit I spent at least 50% of the time in hxcz-ie-jsrx patient edu cation, medical care delivery and in care coordination. TANIA CAMP MD [facility] GASTRO[facility]OLOGY [address] [facility] Mailcode: [place] [address] SURGICAL PATHOLOGY (no units) Date Value Range Status 01/30/2012 Final Value: SOURCE OF SPECIMEN:A Duodenum SOURCE OF SPECIMEN:B Gastric antrum SOURCE OF SPECIMEN:C Esophagus SOURCE OF SPECIMEN:D Terminal ileum SOURCE OF SPECIMEN:E Right colon SOURCE OF SPECIMEN:F Transverse colon SOURCE OF SPECIMEN:G Left colon Final Pathologic Diagnosis: A: Duodenum, biopsy: - Duodenal mucosa with no diagnostic abnormality - Negative for granulomas and dysplasia B: Gastric antrum, biopsy: - Active gastritis, moderate - H. pylori-like organisms identified on immunohistochemical stains - Negative for granulomas and dysplasia C: Esophagus, biopsy: - Squamous epithelium with no diagnostic abnormality - Negative for granulomas and dysplasia D: Terminal ileum, biopsy: - Chronic ileitis with minimal activity and focal granulomas - Negative for dysplasia E: Right colon, biopsy: - Chronic colitis, inactive - Negative for granulomas and dysplasia F: Transverse colon, biopsy: - Colonic mucosa with no diagnostic abnormality - Negative for granulomas and dysplasia G: Left colon, biopsy: - Chronic colitis, inactive - Negative for granulomas and dysplasia (Analyte specific reagents are used in many laboratory tests necessary for standard medical care and generally do not require FDA approval. This test was developed and its performance characteristics determined by [facility]. It has not been cleared or approved by the U.S. Food and Drug Administration.) Case seen by: Rc Singh/Student Fellow Iris Prado M.D., PhD./Pathologist :[facility] on 01/18/2013 Component Date Value Range ALT (SGPT) (U/L) 01/18/2013 22 12-60 GAMMA GLUTAMYL TRANS (U/L) 01/18/2013 17 12-98 ALBUMIN, PLASMA (LAB) (g/dL) 01/18/2013 4.0 3.5-4.7 BILIRUBIN TOTAL (mg/dL) 01/18/2013 0.2* 0.3-1.2 BILIRUBIN DIRECT (mg/dL) 01/18/2013 <0.1 0.0-0.3 ALK PHOS (U/L) 01/18/2013 164 55-220 AST(SGOT) (U/L) 01/18/2013 15 15-41 ALT (SGPT) (U/L) 01/18/2013 22 12-60 TOTAL PROTEIN, PLASMA (LAB) (g/dL) 01/18/2013 7.3 6.4-8.2 AST CMNT 01/18/2013 No Hemo - BILI T CMNT 01/18/2013 No Hemo - BILI D CMNT 01/18/2013 No Hemo - WHITE CELL COUNT (K/cu mm) 01/18/2013 6.32 4.90-15.50 RED CELL COUNT (M/cu mm) 01/18/2013 5.57* 4.50-5.30 HEMOGLOBIN (g/dL) 01/18/2013 13.8 13.0-16.0 HEMATOCRIT (%) 01/18/2013 43.1 37.0-49.0 MCV (fL) 01/18/2013 77.4* 80.0-96.0 MCHC (g/dL) 01/18/2013 32.0* 33.0-35.5 RDW SD (fL) 01/18/2013 39.8 35.1-46.3 PLATELET COUNT (K/cu mm) 01/18/2013 257 150-400 MPV (fL) 01/18/2013 10.0 9.7-12.3 NRBC% (%) 01/18/2013 0.0 0.0-0.3 NRBC# (K/cu mm) 01/18/2013 0.00 0.00-0.02 NEUTROPHIL % (%) 01/18/2013 49.0 41.0-76.0 LYMPHOCYTE % (%) 01/18/2013 41.0 7.0-41.0 MONOCYTE % (%) 01/18/2013 7.0 3.0-13.0 EOS % (%) 01/18/2013 1.9 0.0-6.0 BASO % (%) 01/18/2013 0.8 0.0-2.0 IMMATURE GRANULOCYTE% (%) 01/18/2013 0.3 0.0-0.6 NEUTROPHIL # (K/cu mm) 01/18/2013 3.10 2.80-11.10 LYMPHOCYTE # (K/cu mm) 01/18/2013 2.59 0.40-3.20 MONOCYTE # (K/cu mm) 01/18/2013 0.44 0.30-1.30 EOS # (K/cu mm) 01/18/2013 0.12 0.00-0.30 BASO # (K/cu mm) 01/18/2013 0.05 0.00-0.20 IMMATURE GRANULOCYTE# (K/cu mm) 01/18/2013 0.02 0.00-0.03 documented in this enco unter Plan of Treatment Not on filedocumented as of this encounter Results VITAMIN B-12, SERUM (01/18/2013 3:11 PM PST) + +-------+ + + + | Component | Value | Ref Range | Performed | Pathologist | | | | | At | Signature | + +-------+ + + + | VITAMIN B12 | 687 | 190 - 910 pg/ml | [facility] | | | | | | LABORATORY | | | | | | SERVICES, | | | | | | SPECIAL IMM | | | | | | + COAG | | + +-------+ + + + + + | Specimen | + + | Blood | + + + + + + + | Performing | Address | City/State/Zipcode | Phone Number | | Organization | | | | + + + + + | [facility] | [address] | [place] [address] | | | SERVICES, SPECIAL | [address] | | | | IMM + COAG | | | | + + + + + HEPATITIS B SURFACE AB QUANT, SERUM (01/18/2013 3:11 PM PST) + + + + + + | Component | Value | Ref Range | Performed | Pathologist | | | | | At | Signature | + + + + + + | HEP B SURF | 32Comment: 12 mIU/mL or | mIU/mL | [facility] - | | | AB QUANT | greater is predictive of | | [facility] - | | | | immunity | | [place] | | + + + + + + + + | Specimen | + + | Blood | + + + + + + + | Performing | Address | City/State/Zipcode | Phone Number | | Organization | | | | + + + + + | [facility] | [address] | [place] [address] | | | [place] | | | | + + + + + LIVER SET (AST,ALT,BILI TOTAL,BILI DIRECT,ALK PHOS,ALB,PROT TOTAL) (01/18/2013 3:11 PM PST ) + +---------+ + + + | Component | Value | Ref Range | Performed | Pathologist | | | | | At | Signature | + +---------+ + + + | ALBUMIN, | 4.0 | 3.5 - 4.7 g/dL | [facility] [...] +---------+ + + + | BILIRUBIN | <0.1 | 0.0 - 0.3 mg/dL | [facility] | | | DIRECT | | | LABORATORY | | | | | | SERVICES, | | | | | | CORE | | + +---------+ + + + | ALK PHOS | 164 | 55 - 220 U/L | [facility] | | | | | | LABORATORY | | | | | | SERVICES, | | | | | | CORE | | + +---------+ + + + | AST(SGOT) | 15 | 15 - 41 U/L | [facility] | | | | [...] +---------+ + + + | TOTAL | 7.3 | 6.4 - 8.2 g/dL | [facility] [...] + +---------+ + + + | BILI D CMNT | No Hemo | | [facility] [...] | + + + | New reference range effective 2012 for Total proteins | [facility] | | performed in Core Lab only. | LABORATORY | | | PIOTR, VENU | + + + + + + + + | Performing | Address | City/State/Zipcode | Phone Number | | Organization | | | | + + + + + | [facility] | [address] | [place] [address] | | | SERVICES, VENU | [address] | | | + [...]
--- OUTSIDE RECORDS SUMMARY | ~2019-02-23 | XMS | Encounter Summary ---
Demographics + + + | Address | [address] | | | [place] [address] | + + + | Home Phone [...] + | Debora Resendiz | ECON | [address] | | | | | [place] | | | | | [address] | | + + + + + [...] Team Providers + +------+ + | Care Door Repairer Bus Name | Role | Phone | + [...] | +--------+ + + + + | 11/30/ | Telephone | Pediatric | Tania Foster MD | Question | | 2012 | | Gastroenterology at | [address] [facility] | | | | | [place] | [address] [place], | | | | | [facility] | [place] [address] | | | | | [address] [facility] | [phone] | | | | | Mailcode: [address] | | | | | | [place] | | | | | | [place], [place] | | | | | | [address] | | | | | | [phone] | | | +--------+ + + + [...]
--- OUTSIDE RECORDS SUMMARY | ~2019-02-23 | XMS | Encounter Summary ---
Demographics + + + | Address | [address] | | | [place] [address] | + + + | Home Phone [...] Author + + + | Author | [facility] | + + + | Organization | [facility] | + + + | Address | Unknown | + + + | Phone | Unavailable | + + + Support + + + + + | Name | Relationship | Address | Phone | + + + + + | Debora Resendiz | ECON | [address] | | | | | [place] | | | | | [address] | | + + + + + [...] Team Providers + +------+ + | Care Bell Cleaner Name | Role | Phone | + +------+ + | Tracey Galeas MD | PCP | Unavailable | + +------+ + Reason for Visit + + + | Reason | Comments | + + + | Crohn's disease | | + + + Encounter Details +--------+ + + + + | Date | Type | Department | Care Team | Description | +--------+ + + + + | 11/07/ | Telephone | Pediatric | Tania Foster MD | Crohn's disease | | 2013 | | Gastroenterology at | [address] [facility] [address] | | | | | [place] | [address] [place], | | | | | [facility] | [place] [address] | | | | | [address] [facility] | [phone] | | | | | Mailcode: [facility] | | | | | | [place] | | | | | | [place], [place] | | | | | | [address] | | | | | | [phone] | | | +--------+ + + + [...]
--- OUTSIDE RECORDS SUMMARY | ~2019-02-23 | XMS | Encounter Summary ---
Demographics + + + | Address | [address] | | | [place] [address] | + + + | Home Phone | | + + + | Preferred Language | Unknown | + + + | Marital Status | Single | + + + | Mormonism Affiliation | NON | + + + [...] + | Debora Resendiz | ECON | [address] | | | | | [place] | | | | | [address] | | + + + + + [...] Team Providers + +------+ + | Care Liquor Inspector Name | Role | Phone | + +------+ + | Tracey Galeas MD | PCP | Unavailable | + +------+ + Encounter Details +--------+ + + + + | Date | Type | Department | Care Team | Description | +--------+ + + + + | 07/03/ | Documentati | Vascular Access at | [place], | | | 2011 | on | [address] | [address]), | | | | | [address] | RN [address] | | | | | [facility] | [address] | | | | | [place], [place] | [place], [place] | | | | | [address] | [address] | | | | | [phone] | [phone] | | +--------+ + + + + [...]
--- OUTSIDE RECORDS SUMMARY | ~2019-02-23 | XMS | Encounter Summary ---
Demographics + + + | Address | [address] | | | [place] [address] | + + + | Home Phone [...] + | Debora Resendiz | ECON | [address] | | | | | [place] | | | | | [address] | | + + + + + [...] Team Providers + +------+ + | Care Freight Loader Name | Role | Phone | + [...] | | | [place] | [address] [facility] | | | | | [facility] | [place] [address] | | | | | [address] [facility] | [phone] | | | | | Mailcode: [address] | | | | | | [place] | | | | | | [place], [place] | | | | | | [address] | | | | | | [phone] | | | +--------+ + + + [...] + + + | [facility] | [address] [facility] | [place] [address] | | | LABORATORIES | [address] | | | + + + + + documented in this encounter Visit Diagnoses Not on filedocumented in this encounter"
--- OUTSIDE RECORDS SUMMARY | ~2019-02-23 | XMS | Encounter Summary ---
Demographics + + + | Address | [address] | | | [place] [address] | + + + | Home Phone | | + + + | Preferred Language | Unknown | + + + | Marital Status | Single | + + + | Baptism Affiliation | NON | + + + | Race | White | + + + | Ethnic Group | Not or | + + + Author + + + | Author | [facility] | + + + | Organization | [facility] | + + + | Address | Unknown | + + + | Phone | Unavailable | + + + Support + + + + + | Name | Relationship | Address | Phone | + + + + + | Debora Resendiz | ECON | [address] | | | | | [place] | | | | | [address] | | + + + + + [...] Team Providers + +------+ + | Care Steam Tunnel Feeder Name | Role | Phone | + +------+ + | Tracey Galeas MD | PCP | Unavailable | + +------+ + Reason for Visit + + + | Reason | Comments | + + + | Infusion | | + + + Encounter Details +--------+ + + + + | Date | Type | Department | Care Team | Description | +--------+ + + + + | 09/25/ | Clinical | Pediatric | | Infusion | | 2011 | Support | Hematology Oncology | | | | | Staff | at [facility] | | | | | | [facility] | | | | | | [address] | | | | | | Mailcode: [id number] | | | | | | [place] | | | | | | [place], [place] | | | | | | [address] | | | | | | [phone] | | | +--------+ + + + [...] + + + | Blood Pressure | 142/70 | 09/26/2011 12:35 PM | | | | | PDT | | + + + + + | Pulse | 81 | 09/26/2011 12:35 PM | | | | | PDT | | + + + + + | Temperature | 36.6 C (97.9 F) | 09/26/2011 12:35 PM | | | | | PDT | | + + + + + | Respiratory Rate | 16 | 09/26/2011 10:15 AM | | | | | PDT | | + + + + + | Oxygen Saturation | - | - | | + + + + + | Inhaled Oxygen | - | - | | | Concentration | | | | + + + + + | Weight | 65.7 kg (144 lb 13.5 | 09/26/2011 9:18 AM | | | | oz) | PDT | | + + + + + | Height | 169.5 cm (5' 6.73") | 09/26/2011 9:18 AM | | | | | PDT | | + + + + + | Body Mass Index | 22.87 | 09/26/2011 9:18 AM | | | | | PDT | | + + + + + documented in this encounter Progress Notes Yamilex Polo, NUBIA - 09/26/2011 1:02 PM PDTPt here for remicade infusion. Pt appea rs well. IVT here to place PIV and draw labs. Pt premedicated with tylenol and claratin. Remicade checked and hung per orders. Pt tolerated infusion without incident. VSS. LALO Irwin here to assess pt. Pt observed for 30 minutes without signs or symptoms of reaction. PIV removed with catheter intact. Pt discharged from clinic in stable condit ion. documented in this encounter Plan of Treatment Not on filedocumented as of this encounter Procedures + +--------+ + + + | Procedure Name | Priori | Date/Time | Associated Diagnosis | Comments | | | ty | | | | + +--------+ + + + | DIFFERENTIAL | Routin | 09/26/2011 | | Results for this | | | e | 9:30 AM | | procedure are in the | | | | PDT | | results section. | + +--------+ + + + | CBC, WITH | Routin | 09/26/2011 | Weight loss | Results for this | | DIFFERENTIAL | e | 9:30 AM | Diarrhea Heartburn | procedure are in the | | | | PDT | Anemia Abdominal | results section. | | | | | pain, acute, right | | | | | | upper quadrant | | | | | | Nausea Crohn's | | | | | | disease, small and | | | | | | large intestine with | | | | | | granuloma in the | | | | | | colon, severe | | | | | | duodenitis Gastric | | | | | | ulcer Anorexia | | | | | | Helicobacter | | | | | | positive gastritis | | | | | | High risk | | | | | | medications (not | | | | | | anticoagulants) | | | | | | long-term use | | + +--------+ + + + | LIVER SET | Routin | 09/26/2011 | Weight loss | Results for this | | (AST,ALT,BILI | e | 9:30 AM | Diarrhea Heartburn | procedure are in the | | TOTAL,BILI | | PDT | Anemia Abdominal | results section. | | DIRECT,ALK | | | pain, acute, right | | | PHOS,ALB,PROT TOTAL) | | | upper quadrant | | | | | | Nausea Crohn's | | | | | | disease, small and | | | | | | large intestine with | | | | | | granuloma in the | | | | | | colon, severe | | | | | | duodenitis Gastric | | | | | | ulcer Anorexia | | | | | | Helicobacter | | | | | | positive gastritis | | | | | | High risk | | | | | | medications (not | | | | | | anticoagulants) | | | | | | long-term use | | + +--------+ + + + | NURSING | Routin | 09/26/2011 | Crohn's disease, | | | COMMUNICATION #3 - | e | 9:05 AM | small and large | | | [place] | | PDT | intestine with | | | | | | granuloma in the | | | | | | colon, severe | | | | | | duodenitis High | | | | | | risk medications | | | | | | (not anticoagulants) | | | | | | long-term use | | + +--------+ + + + | NURSING | Routin | 09/26/2011 | Crohn's disease, | | | COMMUNICATION #2 - | e | 9:05 AM | small and large | | | [place] | | PDT | intestine with | | | | | | granuloma in the | | | | | | colon, severe | | | | | | duodenitis High | | | | | | risk medications | | | | | | (not anticoagulants) | | | | | | long-term use | | + +--------+ + + + | NURSING | Routin | 09/26/2011 | Crohn's disease, | | | COMMUNICATION #1 - | e | 9:05 AM | small and large | | | [place] | | PDT | intestine with | | | | | | granuloma in the | | | | | | colon, severe | | | | | | duodenitis High | | | | | | risk medications | | | | | | (not anticoagulants) | | | | | | long-term use | | + +--------+ + + + | GUIDELINES FOR | Routin | 09/26/2011 | Crohn's disease, | | | ORDERING #1 - [place] | e | 9:05 AM | small and large | | | | | PDT | intestine with | | | | | | granuloma in the | | | | | | colon, severe | | | | | | duodenitis High | | | | | | risk medications | | | | | | (not anticoagulants) | | | | | | long-term use | | + +--------+ + + + documented in this encounter Results DIFFERENTIAL (09/26/2011 9:30 AM PDT) + +---------+ + + + | Component | Value | Ref Range | Performed | Pathologist | | | | | At | Signature | + +---------+ + + + | NEUTROPHIL | 43 | 41 - 76 % | [facility] [...] + + + | MONOCYTE % | 11 | 3 - 13 % | [facility] | | | | | | DEPARTMENT | | | | | | OF | | | | | | PATHOLOGY | | + +---------+ + + + | EOS % | 3 | <7 % | [facility] | | [...] +---------+ + + + | NEUTROPHIL | 1.8 (L) | 2.8 - 11.1 K/cu | [facility] | | | # | | mm | DEPARTMENT | | | | | | OF | | | | | | PATHOLOGY | | + +---------+ + + + | LYMPHOCYTE | 1.7 | 0.4 - 3.2 K/cu | [facility] [...] DEPARTMENT OF | [address] | [place] [address] | | | PATHOLOGY | [address] | | | + + + + + LIVER SET (AST,ALT,BILI TOTAL,BILI DIRECT,ALK PHOS,ALB,PROT TOTAL) (09/26/2011 9:30 AM PDT ) + +-------+ + + + | Component | Value | Ref Range | Performed | Pathologist | | | | | At | Signature | + +-------+ + + + | ALBUMIN, | 3.9 | 3.5 - 4.7 g/dL | [facility] | | | PLASMA | | | DEPARTMENT | | | (LAB) | | | OF | | | | | | PATHOLOGY | | + +-------+ + + + | BILIRUBIN | 0.7 | 0.3 - 1.2 mg/dL | [facility] | | | TOTAL | | | DEPARTMENT | | | | | | OF | | | | | | PATHOLOGY | | + +-------+ + + + | BILIRUBIN | 0.1 | <0.4 mg/dL | [facility] | | | DIRECT | | | DEPARTMENT | | | | | | OF | | | | | | PATHOLOGY | | + +-------+ + + + | ALK PHOS | 205 | 55 - 220 U/L | [facility] | | | | | | DEPARTMENT | | | | | | OF | | | | | | PATHOLOGY | | + +-------+ + + + | AST(SGOT) | 23 | 18 - 36 U/L | [facility] | | | | | | DEPARTMENT | | | | | | OF | | | | | | PATHOLOGY | | + +-------+ + + + | ALT (SGPT) | 19 | 13 - 48 U/L | [facility] | | | | | | DEPARTMENT | | | | | | OF | | | | | | PATHOLOGY | | + +-------+ + + + | TOTAL | 6.2 | 5.9 - 8.2 g/dL | [facility] [...] | + + + + + | [facility] | [address] | [place] [address] | | | PATHOLOGY | [address] | | | + + + + + CBC, WITH DIFFERENTIAL (09/26/2011 9:30 AM PDT) + + + + + + | Component | Value | Ref Range | Performed | Pathologist | | | | | At | Signature | + + + + + + | WHITE CELL | 4.1 (L) | 4.9 - 15.5 K/cu | [facility] | | | COUNT | | mm | DEPARTMENT | | | | | | OF | | | | | | PATHOLOGY | | + + + + + + | RED CELL | 4.86 | 4.50 - 5.30 | [facility] | | | COUNT | | M/cu mm | DEPARTMENT | | | | | | OF | | | | | | PATHOLOGY | | + + + + + + | HEMOGLOBIN | 11.7 (L) | 13.0 - 16.0 | [facility] | | | | | g/dL | DEPARTMENT | | | | | | OF | | | | | | PATHOLOGY | | + + + + + + | HEMATOCRIT | 36.8 (L) | 37.0 - 49.0 % | [facility] | | | | | | DEPARTMENT | | | | | | OF | | | | | | PATHOLOGY | | + + + + + + | MCV | 75.6 (L) | 80.0 - 96.0 fL | [facility] | | | | | | DEPARTMENT | | | | | | OF | | | | | | PATHOLOGY | | + + + + + + | MCHC | 31.9 (L) | 33.4 - 35.5 | [facility] | | | | | g/dL | DEPARTMENT | | | | | | OF | | | | | | PATHOLOGY | | + + + + + + | RDW | 17.5 (H) | 11.5 - 15.0 % | [facility] | | | | | | DEPARTMENT | | | | | | OF | | | | | | PATHOLOGY | | + + + + + + | PLATELET | 239 | 150 - 400 K/cu | [facility] [...] | + + + + + | [facility] | [address] | [place] [address] | | | PATHOLOGY | [address] | | | + + + + + documented in this encounter Visit Diagnoses + + | Diagnosis | + + | Weight loss Loss of weight | + + | Diarrhea | + + | Heartburn | + + | Anemia Anemia, unspecified | + + | Abdominal pain, acute, right upper quadrant Abdominal pain, right upper quadrant | + + | Nausea Nausea alone | + + | Crohn's disease, small and large intestine with 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, severe | | duodenitis Regional enteritis of small intestine with large intestine | + + | Gastric ulcer Gastric ulcer, unspecified as acute or chronic, without mention of | | hemorrhage, perforation, or obstruction | + + | Anorexia | + + | Helicobacter positive gastritis Helicobacter pylori (H. pylori) | + + | High risk medications (not anticoagulants) long-term use Encounter for long-term | | (current) use of other medications | + + documented in this encounter Administered Medications + +--------+ +--------+------+------+ | Medication Order | MAR | Action | Dose | Rate | Site | | | Action | Date | | | | + +--------+ +--------+------+------+ | acetaminophen (aka TYLENOL) | Given | 09/26/19 | 650 mg | | | | tablet 650 mg 650 mg, oral, | | 12 9:44 | | | | | ONCE, 1 dose, 09/26/11 at 0945 | | AM PDT | | | | + +--------+ +--------+------+------+ +---+---+ | | | +---+---+ + +---------+ +--------+--------+---+ | inFLIXimab (aka REMICADE) IV | New Bag | 09/26/19 | 400 mg | mL/hr | | | 400 mg 400 mg, intravenous, | | 12 10:00 | | | | | ONCE, 1 dose, 09/26/11 at 0945 | | AM PDT | | | | + +---------+ +--------+--------+---+ +---+---+ | | | +---+---+ + +-------+ +-------+---+---+ | loratadine (aka CLARITIN) | Given | 09/26/19 | 10 mg | | | | tablet 10 mg 10 mg, oral, ONCE, | | 12 9:44 | | | | | 1 dose, 09/26/11 at 0945 | | AM PDT | | | | + +-------+ +-------+---+---+ +---+---+ | | | +---+---+ documented in this encounter
--- OUTSIDE RECORDS SUMMARY | ~2019-02-23 | XMS | Encounter Summary ---
Demographics + + + | Address | [address] | | | [place] [address] | + + + | Home Phone [...] Author + + + | Author | [facility] | + + + | Organization | [facility] | + + + | Address | Unknown | + + + | Phone | Unavailable | + + + Support + + + + + | Name | Relationship | Address | Phone | + + + + + | Debora Resendiz | ECON | [address] | | | | | [place] | | | | | [address] | | + + + + + [...] Team Providers + +------+ + | Care Heating And Ventilating Worker Name | Role | Phone | [...] | +--------+ + + + + | 03/13/ | Telephone | Pediatric | Tania Foster MD | Test Results | | 2011 | | Gastroenterology at | [address] | | | | | [place] | [address] [place], | | | | | [facility] | [place] [address] | | | | | [address] [facility] | [phone] | | | | | Mailcode: SUKUMAR | | | | | | [place] | | | | | | [place], [place] | | | | | | [address] | | | | | | [phone] | | | +--------+ + + + [...]
--- OUTSIDE RECORDS SUMMARY | ~2019-02-23 | XMS | Encounter Summary ---
Demographics + + + | Address | [address] | | | [place] [address] | + + + | Home Phone | | + + + | Preferred Language | Unknown | + + + | Marital Status | Single | + + + | Holiness Affiliation | NON | + + + | Race | White | + + + | Ethnic Group | Not or | + + + Author + + + | Author | [facility] | + + + | Organization | [facility] | + + + | Address | Unknown | + + + | Phone | Unavailable | + + + Support + + + + + | Name | Relationship | Address | Phone | + + + + + | Debora Resendiz | ECON | [address] | | | | | [place] | | | | | [address] | | + + + + + [...] Team Providers + +------+ + | Care Instructional Support Technician Name | Role | Phone | + +------+ + | Tracey Galeas MD | PCP | Unavailable | + +------+ + Reason for Visit +--------+ + | Reason | Comments | +--------+ + | Other | headaches w/ Humira injections | +--------+ + Encounter Details +--------+ + + + + | Date | Type | Department | Care Team | Description | +--------+ + + + + | 11/23/ | Telephone | Pediatric | Tania Foster MD | Other (headaches w/ | | 2012 | | Gastroenterology at | [address] [facility] | Humira injections) | | | | [place] | [address] [place], | | | | | [facility] | [place] [address] | | | | | [address] | [phone] | | | | | Mailcode: CDRCP | | | | | | [place] | | | | | | [place], [place] | | | | | | [address] | | | | | | [phone] | | | +--------+ + + + [...]
--- OUTSIDE RECORDS SUMMARY | ~2019-02-23 | XMS | Encounter Summary ---
Demographics + + + | Address | [address] | | | [place] [address] | + + + | Home Phone [...] Author + + + | Author | [facility] | + + + | Organization | [facility] | + + + | Address | Unknown | + + + | Phone | Unavailable | + + + Support + + + + + | Name | Relationship | Address | Phone | + + + + + | Debora Resendiz | ECON | [address] | | | | | [place] | | | | | [address] | | + + + + + [...] Team Providers + +------+ + | Care Parts Picker Name | Role | Phone | + +------+ + | Tracey Galeas MD | PCP | Unavailable | + +------+ + Reason for Visit + + + | Reason | Comments | + + + | Lab Results | | + + + Encounter Details +--------+ + + + + | Date | Type | Department | Care Team | Description | +--------+ + + + + | 04/01/ | Telephone | Pediatric | Tania Foster MD | Lab Results | | 2012 | | Gastroenterology at | [address] | | | | | [place] | [address] [place], | | | | | [facility] | [place] [address] | | | | | [address] [facility] | [phone] | | | | | Mailcode: SUKUMAR | | | | | | [place] | | | | | | [place], [place] | | | | | | [address] | | | | | | [phone] | | | +--------+ + + + [...] + | CBC, WITH | Routin | 03/29/2012 | | Results for this | | DIFFERENTIAL | e | | | procedure are in the | | | | | | results section. | + +--------+ + + + | VITAMIN D, | Routin | 03/29/2012 | | Results for this | | 25-HYDROXY, SERUM | e | | | procedure are in the | | | | | | results section. | + +--------+ + + + | COMPLETE METABOLIC | Routin | 03/29/2012 | | Results for this | | SET | e | | | procedure are in the | | (NA,K,CL,CO2,BUN,CRE | | | | results section. | | AT,GLUC,CA,AST,ALT,B | | | | | | LAYLA TOTAL,ALK | | | | | | PHOS,ALB,PROT TOTAL) | | | | | + +--------+ + + + | C-REACTIVE PROTEIN | Routin | 03/29/2012 | | Results for this | | | e | | | procedure are in the | | | | | | results section. | + +--------+ + + + | SEDIMENTATION RATE | Routin | 03/29/2012 | | Results for this | | | e | | | procedure are in the | | | | | | results section. | + +--------+ + + + | GGT, PLASMA | Routin | 03/29/2012 | | Results for this | | | e | | | procedure are in the | | | | | | results section. | + +--------+ + + + documented in this encounter Results C-REACT PRTN (FOR INFLAMMATION) (03/29/2012) + +-------+ + + + | Component | Value | Ref Range | Performed | Pathologist | | | | | At | Signature | + +-------+ + + + | C-REACTIVE | <0.5 | <=0.4 mg/dL | [facility] - | | | PROTEIN | | | [facility] - | | [...] + | [facility] - | [address] | [place] [address] | | | [place] | | | | + + + + + CBC, WITH DIFFERENTIAL (03/29/2012) + + + + + + | Component | Value | Ref Range | Performed | Pathologist | | | | | At | Signature | + + + + + + | WHITE CELL | 2.4 (A) | 4 - 10.5 K/cu | [facility] - | | | COUNT | | mm | AIRPORT - | | | | | | [place] | | + + + + + + | RED CELL | 5.36 | 4 - 5.5 M/cu mm | [facility] - | | | COUNT | | | [facility]PORT - | | | | | | [place] | | + + + + + + | HEMOGLOBIN | 12.5 (A) | 13 - 17 g/dL | [facility] - | | | | | | AIRPORT - | | | | | | [place] | | + + + + + + | HEMATOCRIT | 39.9 | 37 - 50 % | [facility] - | | | | | | [facility]PORT - | | | | | | [place] | | + + + + + + | MCV | 74.4 (A) | 82 - 100 fL | [facility] - | | | | | | [facility] - | | | | | | [place] | | + + + + + + | MCH | 23.3 (A) | 28 - 35 pg | [facility] - | | | | | | [facility] - | | | | | | [place] | | + + + + + + | MCHC | 31.3 | 31 - 36.5 g/dL | [facility] - | | | | | | [facility] - | | | | | | [place] | | + + + + + + | PLATELET | 211 | 140 - 375 K/cu | [facility] - | | | COUNT | | mm | AIRPORT - | | | | | | [place] | | + + + + + + | NEUTROPHIL | 39.6 | % | [facility] - | | | % | | | [facility] - | | | | | | [place] | | + + + + + + | LYMPHOCYTE | 39.2 | % | [facility] - | | | % | | | [facility] - | | | | | | [place] | | + + + + + + | MONOCYTE % | 19.6 | % | [facility] - | | | | | | [facility] - | | | | | | [place] | | + + + + + + | EOS % | 1.2 | % | [facility] - | | | | | | [facility] - | | | | | | [place] | | + + + + + + | BASO % | 0.40 | % | [facility] - | | | | | | [facility] - | | | | | | [place] | | + + + + + + | RDW | 17.5 (A) | 11 - 14.5 % | [facility] - | | | | | | [facility]PORT - | | | | | | [place] | | + + + + + + | MPV | 10.5 | fL | [facility] - | | | | | | [facility] - | | | | | | [place] | | + + + + + + | NEUTROPHIL | 0.97 (A) | 1.8 - 8.3 K/cu | [facility] - | | | # | | mm | [facility] - | | | | | | [place] | | + + + + + + | LYMPHOCYTE | 0.96 (A) | 1 - 4.8 K/cu mm | [facility] - | | | # | | | [facility] - | | | | | | [place] | | + + + + + + | MONOCYTE # | 0.48 | 0 - 0.9 K/cu mm | [facility] - | | | | | | [facility] - | | | | | | [place] | | + + + + + + | EOS # | 0.03 | 0 - 0.4 K/cu mm | [facility] - | | | | | | [facility]PORT - | | | | | | [place] | | + + + + + + | BASO # | 0.01 | 0 - 0.2 K/cu mm | [facility] - | | | | [...] + | [facility] - | [address] | [place] [address] | | | [place] | | | | + + + + + COMPLETE METABOLIC SET (NA,K,CL,CO2,BUN,CREAT,GLUC,CA,AST,ALT,BILI TOTAL,ALK PHOS,ALB,PROT TOTAL) (03/29/2012) + +-------+ + + + | Component | Value | Ref Range | Performed | Pathologist | | | | | At | Signature | + +-------+ + + + | GLUCOSE, | 95 | 60 - 99 mg/dL | [facility] | | | PLASMA | | | [facility] - | | | (LAB) | | | [place] | | + +-------+ + + + | BUN, PLASMA | 8 | 7 - 25 mg/dL | [facility] - | | | (LAB) | | | [facility]PORT - | | | | | | [place] | | + +-------+ + + + | CREATININE | 0.63 | 0.46 - 0.81 | [facility] - | | | PLASMA | | mg/dL | [facility] - | | | (LAB) | | | [place] | | + +-------+ + + + | TOTAL | 6.6 | 6.4 - 8.3 g/dL | [facility] - | | | PROTEIN, | | | [facility] - | | | PLASMA | | | [place] | | | (LAB) | | | | | + +-------+ + + + | ALBUMIN, | 4.4 | 3.4 - 5.2 g/dL | [facility] - | | | PLASMA | | | [facility] - | | | (LAB) | | | [place] | | + +-------+ + + + | CALCIUM, | 9 | 8.9 - 10.7 | [facility] - | | | PLASMA | | mg/dL | [facility] - | | | (LAB) | | | [place] | | + +-------+ + + + | BILIRUBIN | 0.3 | <=1.1 mg/dL | [facility] - | | | TOTAL | | | [facility] - | | | | | | [place] | | + +-------+ + + + | ALK PHOS | 252 | 100 - 390 U/L | [facility] - | | | | | | [facility] - | | | | | | [place] | | + +-------+ + + + | AST(SGOT) | 23 | 5 - 43 U/L | [facility] - | | | | | | [facility] - | | | | | | [place] | | + +-------+ + + + | SODIUM, | 139 | 136 - 148 | [facility] - | | | PLASMA | | mmol/L | [facility] - | | | (LAB) | | | [place] | | + +-------+ + + + | POTASSIUM, | 4.1 | 3.5 - 5.1 | [facility] - | | | PLASMA | | mmol/L | [facility] - | | | (LAB) | | | [place] | | + +-------+ + + + | CHLORIDE, | 107 | 97 - 109 mmol/L | [facility] - | | | PLASMA | | | [facility] - | | | (LAB) | | | [place] | | + +-------+ + + + | TOTAL CO2, | 23 | 22 - 32 mmol/L | [facility] - | | | PLASMA | | | [facility] - | | | (LAB) | | | [place] | | + +-------+ + + + | ALT (SGPT) | 17 | 10 - 58 U/L | [facility] [...] + | [facility] - | [address] | [place] [address] | | | [place] | | | | + + + + + GGT, PLASMA (03/29/2012) + +-------+ + + + | Component | Value | Ref Range | Performed | Pathologist | | | | | At | Signature | + +-------+ + + + | GAMMA | 13 | 9 - 64 U/L | [facility] - | | | GLUTAMYL | | | AIRPORT - | | | TRANS | | | [place] | | + +-------+ + + + + + | Specimen | + + | Blood - Blood | + + + + + + + | Performing | Address | City/State/Zipcode | Phone Number | | Organization | | | | + + + + + | [facility] - | [address] | [place] [address] | | | [place] | | | | + + + + + SEDIMENTATION RATE (03/29/2012) + +-------+ + + + | Component | Value | Ref Range | Performed | Pathologist | | | | | At | Signature | + +-------+ + + + | ESR (SED | 5 | <=20 mm/hr | [facility] - | | | RATE) | | | AIRPORT - | | [...] + | [facility] - | [address] | [place] [address] | | | [place] | | | | + + + + + VITAMIN D, 25-HYDROXY, SERUM (03/29/2012) + +--------+ + + + | Component | Value | Ref Range | Performed | Pathologist | | | | | At | Signature | + +--------+ + + + | VITAMIN D | 17 (A) | 20 - 80 ng/mL | [facility] - | | | 25 HYDROXY | | | AIRPORT - | | | | | | [place] | | + +--------+ + + + + + | Specimen | + + | Blood - Blood | + + + + + + + | Performing | Address | City/State/Zipcode | Phone Number | | Organization | | | | + + + + + | [facility] - | [address] | [place] [address] | | | [place] | | | | + + + + + documented in this encounter Visit Diagnoses + + | Diagnosis | + + | Neutropenia (HCC) - Primary | + + documented in this encounter"
--- OUTSIDE RECORDS SUMMARY | ~2019-02-23 | XMS | Encounter Summary ---
Demographics + + + | Address | [address] | | | [place] [address] | + + + | Home Phone | | + + + | Preferred Language | Unknown | + + + | Marital Status | Single | + + + | Episcopalian Affiliation | NON | + + + | Race | White | + + + | Ethnic Group | Not or | + + + Author + + + | Author | [facility] | + + + | Organization | [facility] | + + + | Address | Unknown | + + + | Phone | Unavailable | + + + Support + + + + + | Name | Relationship | Address | Phone | + + + + + | Debora Resendiz | ECON | [address] | | | | | [place] | | | | | [address] | | + + + + + [...] Team Providers + +------+ + | Care Veterinarian Laboratory Animal Care Name | Role | Phone | + +------+ + | Tracey Galeas MD | PCP | Unavailable | + +------+ + Reason for Visit + + + | Reason | Comments | + + + | Update from Patient | | + + + Encounter Details +--------+ + + + + | Date | Type | Department | Care Team | Description | +--------+ + + + + | 06/17/ | Telephone | Pediatric | Tania Foster MD | Update from Patient | | 2012 | | Gastroenterology at | [address] [facility] | | | | | [place] | Herminia Yepez [place], | | | | | [facility] | [place] [address] | | | | | [address] | [phone] | | | | | Mailcode: CDR | | | | | | [place] | | | | | | [place], [place] | | | | | | [address] | | | | | | [phone] | | | +--------+ + + + [...] | + +--------+ + + + | LAB OTHER | Routin | 06/22/2012 | Crohn's disease, | Results for this | | | e | | small and large | procedure are in the | | | | | intestine with | results section. | | | | | granuloma in the | | | | | | colon, severe | | | | | | duodenitis | | | | | | Encounter for | | | | | | long-term (current) | | | | | | use of other | | | | | | medications | | + +--------+ + + + documented in this encounter Results LAB OTHER (06/22/2012) + + + + + + | Component | Value | Ref Range | Performed | Pathologist | | | | | At | Signature | + + + + + + | [facility] | 9Comment: Infliximab | <0.4 ug/mL | [facility] | | | PHOS, OTHER | Drug Level (results of | | [facility] | | | CALC | 0.4 or higher indicates | | [place] | | | | detection of Infliximab) | | | | + + + + + + | [place] | <22Comment: | <22 ng/mL | [facility] - | | | PHOS, OTHER | Anti-Infliximab Antibody | | [facility] - | | | CALC | (results of 22 or | | [place] | | | | higher indicates | | | | | | detection of | | | | | | Anti-Infliximab | | | | | | Antibodies) | | | | + + + + + + + + | Specimen | + + | Blood | + + + + + + + | Performing | Address | City/State/Zipcode | Phone Number | | Organization | | | | + + + + + | [facility] | [address] | [place] [address] | | | [facility] | | | | + + + + + documented in this encounter Visit Diagnoses + + | Diagnosis | + + | Crohn's disease, small and large intestine with 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, severe | | duodenitis - Primary Regional enteritis of small intestine with large intestine | + + | Encounter for long-term (current) use of other medications | + + documented in this encounter"
--- OUTSIDE RECORDS SUMMARY | ~2019-02-23 | XMS | Encounter Summary ---
Demographics + + + | Address | [address] | | | [place] [address] | + + + | Home Phone [...] + | Debora Resendiz | ECON | [address] | | | | | [place] | | | | | [address] | | + + + + + [...] Team Providers + +------+ + | Care Lactation Specialist Name | Role | Phone | + +------+ + | Tracey Galeas MD | PCP | Unavailable | + +------+ + Reason for Visit +--------+ + | Reason | Comments | +--------+ + | Other | sore throat | +--------+ + Encounter Details +--------+ + + + + | Date | Type | Department | Care Team | Description | +--------+ + + + + | 02/03/ | Telephone | Pediatric | Tania Foster MD | Other (sore throat) | | 2011 | | Gastroenterology at | [address] | | | | | [place] | [address]inia Yepez [place], | | | | | [facility] | [place] [address] | | | | | [facility] [place] [place] | [phone] | | | | | Mailcode: SUKUMAR | | | | | | [place] | | | | | | [place], [place] | | | | | | [address] | | | | | | [phone] | | | +--------+ + + + [...]
--- OUTSIDE RECORDS SUMMARY | ~2019-02-23 | XMS | Encounter Summary ---
Demographics + + + | Address | [address] | | | [place] [address] | + + + | Home Phone | | + + + | Preferred Language | Unknown | + + + | Marital Status | Single | + + + | Yarsanism Affiliation | NON | + + + [...] + | Debora Resendiz | ECON | [address] | | | | | [place] | | | | | [address] | | + + + + + [...] Team Providers + +------+ + | Care Relief Manager Name | Role | Phone | + +------+ + | Tracey Galeas MD | PCP | Unavailable | + +------+ + Encounter Details +--------+ + + + + | Date | Type | Department | Care Team | Description | +--------+ + + + + | 05/26/ | MyChart | Pediatric | Tania Foster MD | RE: prescription | | 2011 | Encounter | Gastroenterology at | [address] | | | | | [place] | [place] Yepez [facility] | | | | | [facility] | [place] [address] | | | | | [address] | [phone] | | | | | Mailcode: [facility] | | | | | | [place] | | | | | | [place], [place] | | | | | | [address] | | | | | | [phone] | | | +--------+ + + + [...]
--- OUTSIDE RECORDS SUMMARY | ~2019-02-23 | XMS | Encounter Summary ---
Demographics + + + | Address | [address] | | | [place] [address] | + + + | Home Phone [...] + | Debora Resendiz | ECON | [address] | | | | | [place] | | | | | [address] | | + + + + + [...] Providers + +------+ + | Care Property Disposal Manager Name | Role | Phone | [...] | [address] | [address] | | | | | small | Anam | Dr | | | | | intestine | [place] Yepez | Mailcode: | | | | | with large | [place], [place] | DCH10C | | | | | intestine | [address] | [place] | | | | | (HCC) | Phone: | [place], [place] | | | | | Anorexia | [phone] | [address] | | | | | Pre-procedur | Fax: | Phone: | | | | | e Diagnoses | [phone] | [phone] | | | | | | | Fax: | | | | | Procedures | | [phone] | | | | | [place] | | | | | | | INFLIXIMAB | | | | | | | INJECTION, | | | | | | | 10 MG SC | | | | | | | THR/PRPH/DX | | | | | | | IV INF,IN | | | | | | | SC | | | | | | | [...] | 2011 | Visit | Oncology at [facility] [address] | [address] [facility] | medications (not | | | | [facility] [address] | Herminia Yepez [place], | anticoagulants) | | | | Mailcode: DCH10C | [place] [address] | long-term use | | | | [place] | [phone] | (Primary Dx) | | | | [place], [place] | | | | | | [address] | | | | | | [phone] | | | +--------+---------+ + + + [...] Foster for any questions. Jeremias was encou[employer] network to set the alarm function on his phone or watch to remind him to take his medications. 2. Labs or imaging ordered are listed below, including CBC, liver set. 3.. Education: For further information on GI topics, we direct our families to [email or web address] and www.[email or web address] 4. Health care maintenance Clinical Research Administrator exam every 2 years. Flu shot reminder: in the fall Note: Immunosuppressed patients on Remicade, Humira, Cimzia, chronic steroids, methotrexate , imuran or 6-MP should not have live virus vaccinations , including the nasal flu mist, MMR or Varicella vaccination. 5. Next recommended follow-up in GI clinic: 8 weeks for Remicade infusion. LENARD GARCES GASTROENTEROLOGY HEMATOLOGY ONCOLOGY [address] [facility] Mailcode: Dch10c [facility] [phone] documented in t his encounter Plan of Treatment Not on filedocumented as of this encounter Visit Diagnoses + + | Diagnosis | + + | High risk medications (not anticoagulants) long-term use - Primary Encounter for | | long-term (current) use of other medications | + + documented in this encounter
--- OUTSIDE RECORDS SUMMARY | ~2019-02-23 | XMS | Encounter Summary ---
Demographics + + + | Address | [address] | | | [place] [address] | + + + | Home Phone [...] Author + + + | Author | [facility] | + + + | Organization | [facility] | + + + | Address | Unknown | + + + | Phone | Unavailable | + + + Support + + + + + | Name | Relationship | Address | Phone | + + + + + | Debora Resendiz | ECON | [address] | | | | | [place] | | | | | [address] | | + + + + + [...] Team Providers + +------+ + | Care Car Dryer Name | Role | Phone | + +------+ + | Tracey Galeas MD | PCP | Unavailable | + +------+ + Reason for Visit +--------+ + | Reason | Comments | +--------+ + | Other | ongoing sinus infection | +--------+ + Encounter Details +--------+ + + + + | Date | Type | Department | Care Team | Description | +--------+ + + + + | 01/20/ | Telephone | Pediatric | Tania Foster MD | Other (ongoing sinus | | 2011 | | Gastroenterology at | [address] [facility] | infection) | | | | [place] | Herminia Yepez [place], | | | | | [facility] | [place] [address] | | | | | [address] | [phone] | | | | | Mailcode: [facility] | | | | | | [place] | | | | | | [place], [place] | | | | | | [address] | | | | | | [phone] | | | +--------+ + + + [...]
--- OUTSIDE RECORDS SUMMARY | ~2019-02-23 | XMS | Encounter Summary ---
Demographics + + + | Address | [address] | | | [place] [address] | + + + | Home Phone | | + + + | Preferred Language | Unknown | + + + | Marital Status | Single | + + + | Mosque Affiliation | NON | + + + | Race | White | + + + | Ethnic Group | Not or | + + + Author + + + | Author | [facility] | + + + | Organization | [facility] | + + + | Address | Unknown | + + + | Phone | Unavailable | + + + Support + + + + + | Name | Relationship | Address | Phone | + + + + + | Debora Resendiz | ECON | [address] | | | | | [place] | | | | | [address] | | + + + + + [...] | + + + + + | Jreemias | ECON | Unknown | | + + + + + Care Team Providers + +------+ + | Care Mainspring Barrel Assembly Cleaner Name | Role | Phone | [...] Description | +--------+---------+ + + + | 06/18/ | Surgery | 8S INTRA OP | Tania Foster MD | EGD WITH BIOPSY: | | 2011 | | [place] | [address] | COLONOSCOPY WITH | | | | Children's | [place], | BIOPSY x7 | | | | [facility] Admitting | [place] [address] | | | | | Desk Once | [phone] | | | | | admitted, go to the | | | | | | 8th floor Surgical | | | | | | Desk Located at the | | | | | | [address] | | | | | | [address] [place], | | | | | | [place] [address] | | | +--------+---------+ + + + [...] well as next f/u appt with Dr Foster. Megha SOTO Ino Soto Sayda Gutierrez - 06/22/2011 11:35 AM PDTFormatting of this note might be different from the origina l. INPATIENT PEDIATRIC PROVIDER DISCHARGE SUMMARY Admission [...] IV Solumedrol . Will be monitored with [place] nurse visit. FEN: vitamin D level low [...] MD Discharging Attending: Julee Quintana MD [facility] [address] [place] [address] documented in this enc ounter Discharge Instructions Instructions Marisela aCsey RN - 06/18/2011 Welcome to Pediatric Endoscopy! We [...] ities tomorrow. Call the Pediatric GI provider honey processor for urgent matters If you see any of these signs, call the GI office at [phone] (option 3) during regular business hours, or the GI provider honey processor after hours for the following: Increased pain [...] take usual medicines unless told otherwise by [facility] doctor. How to Reach Your GI Provider: Mon-Fri from 8:00-4:30, call GI Office at [phone]. After hours, weekends, & holidays, call [facility] Edi Programmer Analyst at [phone]; ask to edwards ve the Pediatric GI provider honey processor paged for urgent patient issues as described above. Results: Biopsy results may take 10 days to come back; we will contact you when we receive the res ults. Assure that our check-in desk has your contact numbers. Please sign up for [employer] in order to receive results faster, if you have a computer. Ot wise, we will send you a letter or call when results are available. Patient Education Materials: Low-fiber diet Additional Instructions: N/A Discharge Nurse: Marisela Casey Date: 06/22/2011 Discharge Time: 10:47 AM AttachmentsThe following attachments cannot be sent through Care Everywhere.Low-Fiber Diet: After Your Visitdocumented in this encounter Progress Notes Mariusz Julian MD - 06/22/2011 9:22 AM PDTFormatting of this note might be different from th e original. INPATIENT PEDIATRIC GASTROENTEROLOGY PROGRESS NOTE ATTENDING: Dudley Collazo MD AUTHOR: MARIUSZ JULIAN MD Jeremisa Adames is a 15 year old male [...] General Appearance: Active, alert, NAD Head: Mild [place] face Eyes,Ears, Nose, Throat: No icterus, MMM [...] for Vit D deficiency. MARIUSZ JULIAN MD [facility] [address] [facility] [address] [facility] DEPARTMENT: [id number]- PED GASTRO [facility] Place of Service: 08[address] - IP Date of Service: 06/22/2011 CSN: [id number] Suggested Level of Care: 27297 - Subsequent -1 HPI, 1 ROS, 2-4 Exam, Mod D.M., 25 Min Date: June 22, 2011 ariusz Julian MD - 012 10:05 AM PDT INPATIENT [...] Crohn's disease does not respond to steroids. Jolley better after Infliximab. - Low Vit D level. RECOMMENDATIONS/PLAN: - Continue current care. - If continues to do well, OK to d/c to home from GI point view. - GI office will schedule the following Infliximab infusions. - Vit D 50,000 weekly x 3 months for Vit D deficiency. MARIUSZ JULIAN MD [facility] [address] [facility] [address] [facility] DEPARTMENT: [id number] PED GASTRO [facility] Place of Service: [address] - Date of Service: 06/21/2011 CSN: [id number] Suggested Level of Care: 73489 - Subsequent -2 HPI, 2 ROS, 1 [...] concerns or complaints. Tolerated Remicaide well y . BPs continue to run high (has had [...] remicaide infusions per peds GI. Megha SOTO Hans Mckinnon Md - 06/21/2011 6:49 AM PDT Pediatric [...] t herapy. EVAN RUBIN MD Pediatric Gastroenterology [facility] DEPARTMENT: [id number]- PED GASTRO [facility] Place of Service: 46033 - Date of Service: 06/20/2011 CSN: [id number] Suggested Level of Care: 81268 - Subsequent -1 HPI, 1 ROS, 2-4 [...] dose and then re-evaluate. LAXMI DAMON MD esha Neri - 06/20/2011 11:01 AM PDT Nutrition Note S: Mom reports that Jeremias is usually a good eater at home, less appetite when having a fl are. Drinks [place] Instant Breakfast + 1% milk at home, [...] month, wt up since . Estimated needs: 7411-2048 calories (DRI), 1.5-2.0 g/kg pro, 2200 ml fluid PLAN: 1. Encourage po, low fiber diet. Sending chocolate CIB + 2% milk BID. 2. Will provide low fiber diet education 3. Rec check 25-OH vitamin D level 4. RD following Mesha Neri RD, LD Pediatric Dietitian [facility] [phone] Pager #: [phone] Dudley Oliva MD - 06/20/2011 8:09 AM PDT [place] [facility] Attending addendum Hosp day # 1 Pt [...] | | | | al | | ([facility]) Diarrhea | | | | | | Nausea alone | | + +--------+ + + + | [place] COLONOSCOPY, | Routin | 06/19/2011 | | Results for this | | FLEX, W/BIOPSY | e | 7:54 AM | | procedure are in the | | | | PDT | | results section. | + +--------+ + + + | [place] UPPER GI | Routin | 06/19/2011 | [...] | | | Gastroenterology Procedure Note Jeremias Nathalie Adames Age/Gender 16 | | | y.o. [...] | | | Identification pause performed per [facility] protocol. Patient placed in | | | [...] | | to family. TANIA FOSTER MD [address] | | | -83/[place] [address] cc: Tracey | | | MD Gudelia [facility] DEPARTMENT: [id number]- PED GASTRO [facility] | | | Place of Service: - OP Date of Service: 01/30/2012 MEDICAL | | | RECORD NUMBER [id number] CSN: [id number] Suggested Level of Care: | | | 67429 - Colonoscopy w/Biopsy and 47023 EGD with biopsies | | + + [...] Description: Identification pause performed per | | [facility] protocol.Patient placed in left lateral decubitus position.After [...] procedure labeled and given to family.TANIA FOSTER MDWASU [address] [facility] | | [id number]/[place], [place] [phone]: Tracey Galeas [facility]: | | [id number]- PED GASTRO [facility] Place of Service: - OPDate of Service: | | 01/30/2012MEDICAL RECORD NUMBER [id number]: [id number] Level of Care: 87808 - | | Colonoscopy w/Biopsy and 89835 EGD with biopsies | |Gastric Antrum: 2 [...] | | | |TANIA FOSTER MD | |[facility] 8S | |[address] | |[id number] | |[place] [address] | |[phone] | | | |cc: Tracey Galeas MD | | | |[facility] DEPARTMENT: [id number]- [facility] | |Place of Service: [address] - | |Date of Service: 01/30/2012 | | | |CSN: [id number] | |Suggested Level of Care: 95574 - Colonoscopy w/Biopsy and 22232 EGD with biopsies | + + HEPATITIS [...] + + | [facility] | [facility] | [facility] [place] [address] | REGIONAL | | [place] [address] | LABORATORY | + + + + + + + + | Performing | Address | City/State/Zipcode | Phone Number | | Organization | | | | + + + + + | [facility] | [address] | [place] [address] | | | LABORATORY | | | [...] | + + + + + | [facility] | [address] | [place] [address] | | | PATHOLOGY | [address] [...] | + + + + + | [facility] | [address] | [place] [address] | | | PATHOLOGY | [address] [...] by | | | | | | Character Booster, | | | | | | | | | | | | [address] | | | | | | [facility] [address] | | | | | | [phone] | | | | | | | | | | | | [email or web address], | | | | | | Lyla [...] [facility] | [address] | [place], [place] | | | [facility] | | [address] | | + + + + + [...] | [facility] DEPARTMENT OF | [address] | [place] [address] | | | PATHOLOGY | [address] [...] ([facility]) | [facility] | | [facility] [place] [address] [facility] | [facility] | | [place] [address] | LABORATORY | + + + + + + + + | Performing | Address | City/State/Zipcode | Phone Number | | Organization | | | | + + + + + | [facility] | [address] [facility] | [place] [address] | | | LABORATORY | | | [...] | + + + + + | [facility] DEPARTMENT OF | [address] | [place] [address] | | | PATHOLOGY | [address] [...] 9 | 4 - 11 mmol/L | [facility] [...] + + | [facility] DEPARTMENT OF | [address] | [place] [address] | | | PATHOLOGY | [address] | | | + + + + + [place] UPPER GI ENDOSCOPY,BIOPSY (06/19/2011 7:54 AM PDT)[place] COLONOSCOPY, FLEX, W/BIOPSY (06/18 7:54 AM PDT)ORDERS OTHER (06/19/2011 12:00 AM PDT) + + + | Narrative | Performed At | + + + | | | + + + + + | Transcriptions | + + | Lei Crane - 06/30/2011 11:34 AM PDT | + [...] by:Reshma | | | | | | Mirandawein/Student | | | | | | FellowJodelmar [...] Sales | | | | | | Bobi | | | | | | zahraa [...] | + + + + + | [facility] | [address] | [place] [address] | | | PATHOLOGY | [address] | | | + + + + + documented in this encounter Visit Diagnoses + + | Diagnosis | + + | Regional enteritis of small intestine with large intestine (HCC) Regional enteritis | | of small intestine with large intestine | + + | Diarrhea | + + | Nausea alone | + + documented in this encounter
--- OUTSIDE RECORDS SUMMARY | ~2019-02-23 | XMS | Encounter Summary ---
Demographics + + + | Address | [address] | | | [place] [address] | + + + | Home Phone | | + + + | Preferred Language | Unknown | + + + | Marital Status | Single | + + + | Alevism Affiliation | NON | + + + [...] + | Debora Resendiz | ECON | [id number] | | | | | [place] | | | | | [address] | | + + + + + | Quang Resendiz | ECON | Unknown | | + + + + + | eVsna Hernandez | ECON | Unknown | | + + + + + | Pradeep Hyatt | ECON | Unknown | Unavailable | + + + + + | Lonnie Hyatt | ECON | Unknown | Unavailable | + + + + + | Jeremias | ECON | Unknown | | + + + + + Care Team Providers + +------+ + | Care Can Maker Name | Role | Phone | + +------+ + | Tracey Galeas MD | PCP | Unavailable | + +------+ + Reason for Visit + + + | Reason | Comments | + + + | Infusion | Remicade | + + + Encounter Details +--------+ + + + + | Date | Type | Department | Care Team | Description | +--------+ + + + + | 11/20/ | Clinical | Pediatric | | Infusion (Remicade) | | 2011 | Support | Hematology Oncology | | | | | Staff | at [facility] | | | | | | [facility] | | | | | | [address] [facility] | | | | | | Mailcode: [id number] | | | | | | [place] | | | | | | [place], [place] | | | | | | [address] | | | | | | [phone] | | | +--------+ + + + [...] + + + | Blood Pressure | 142/83 | 11/21/2011 1:40 PM | | | | | PDT | | + + + + + | Pulse | 87 | 11/21/2011 1:40 PM | | | | | PDT | | + + + + + | Temperature | 36.9 C (98.4 F) | 11/21/2011 1:40 PM | | | | | PDT | | + + + + + | Respiratory Rate | 20 | 11/21/2011 8:52 AM | | | | | PDT | | + + + + + | Oxygen Saturation | - | - | | + + + + + | Inhaled Oxygen | - | - | | | Concentration | | | | + + + + + | Weight | 62.9 kg (138 lb 10.7 | 11/21/2011 8:52 AM | | | | oz) | PDT | | + + + + + | Height | 170.2 cm (5' 7.01") | 11/21/2011 8:52 AM | | | | | PDT | | + + + + + | Body Mass Index | 21.71 | 11/21/2011 8:52 AM | | | | | PDT | | + + + + + documented in this encounter Progress Notes Nathalie Arzate RN - 11/21/2011 12:08 PM Day came to [facility] today for IV Remicade. A PIV was placed by IVT RN and secured. He was premedicated with Acetaminophen and Lorati dine prior to the infusion. Jeremias tolerated the infusion without any adverse reactions. Please note doc flowsheet for infusion specifics. Larry Guillen NP came and saw Jeremias while he was in the infusion area. After a 30 minute post infusion observation period, th e PIV was easily removed with the catheter intact and Jeremias was discharged from the clinic in good condition with his mom. 5:0 3 PM PDTdocumented in this encounter Plan of Treatment Not on filedocumented as of this encounter Procedures + +--------+ + + + | Procedure Name | Priori | Date/Time | Associated Diagnosis | Comments | | | ty | | | | + +--------+ + + + | DIFFERENTIAL | Routin | 11/21/2011 | | Results for this | | | e | 9:15 AM | | procedure are in the | | | | PDT | | results section. | + +--------+ + + + | CBC, WITH | Routin | 11/21/2011 | Weight loss | Results for this | | DIFFERENTIAL | e | 9:15 AM | Diarrhea Heartburn | procedure are [...] + | LIVER SET | Routin | 11/21/2011 | Weight loss | Results for this | | (AST,ALT,BILI | e | 9:15 AM | Diarrhea Heartburn | procedure are [...] + documented in this encounter Results DIFFERENTIAL (11/21/2011 9:15 AM PDT) + +---------+ + + + | Component | Value | Ref Range | Performed | Pathologist | | | | | At | Signature | + +---------+ + + + | NEUTROPHIL | 37 (L) | 41 - 76 % | [facility] | | | % | | | DEPARTMENT | | | | | | OF | | | | | | PATHOLOGY | | + +---------+ + + + | LYMPHOCYTE | 48 (H) | 7 - 41 % | [facility] | | | % | | | DEPARTMENT | | | | | | OF | | | | | | PATHOLOGY | | + +---------+ + + + | MONOCYTE % | 12 | 3 - 13 % | [facility] [...] +---------+ + + + | NEUTROPHIL | 1.4 (L) | 2.8 - 11.1 K/cu | [...] + + + | [facility] | [address] | [place] [address] | | | PATHOLOGY | [address] | | | + + + + + LIVER SET (AST,ALT,BILI TOTAL,BILI DIRECT,ALK PHOS,ALB,PROT TOTAL) (11/21/2011 9:15 AM PDT ) + +---------+ + + + [...] +---------+ + + + | BILIRUBIN | 0.5 | 0.3 - 1.2 mg/dL | [facility] | | | TOTAL | | | DEPARTMENT | | | | | | OF | | | | | | PATHOLOGY | | + +---------+ + + + | BILIRUBIN | 0.1 | <0.4 mg/dL | [facility] | | | DIRECT | | | DEPARTMENT | | | | | | OF | | | | | | PATHOLOGY | | + +---------+ + + + | ALK PHOS | 191 | 55 - 220 U/L | [facility] | | | | | | DEPARTMENT | | | | | | OF | | | | | | PATHOLOGY | | + +---------+ + + + | AST(SGOT) | 38 (H) | 18 - 36 U/L | [facility] | | | | | | DEPARTMENT | | | | | | OF | | | | | | PATHOLOGY | | + +---------+ + + + | ALT (SGPT) | 20 | 12 - 60 U/L | [facility] | | | | | | DEPARTMENT | | | | | | OF | | | | | | PATHOLOGY | | + +---------+ + + + | TOTAL | 7.2 | 5.9 - 8.2 g/dL | [facility] | | | PROTEIN, | | | DEPARTMENT | | | PLASMA | | | OF | | | (LAB) | | | PATHOLOGY | | + +---------+ + + + | AST CMNT | SL HEMO | | [facility] | | | | [...] | [facility] | | Sodium effective 10/07/11 Sample hemolyzed. Results for K, Total | DEPARTMENT OF | | Bili., Direct Bili., AST, LD, or HDL may be inaccurate. Refer to | PATHOLOGY | | comment under test result. | | + + + + + + + + | Performing | Address | City/State/Zipcode | Phone Number | | Organization | | | | + + + + + | [facility] | [address] | [place] [address] | | | PATHOLOGY | [address] | | | + + + + + CBC, WITH DIFFERENTIAL (11/21/2011 9:15 AM PDT) + + + + + + | Component | Value | Ref Range | Performed | Pathologist | | | | | At | Signature | + + + + + + | WHITE CELL | 3.7 (L) | 4.9 - 15.5 K/cu | [facility] | | | COUNT | | mm | DEPARTMENT | | | | | | OF | | | | | | PATHOLOGY | | + + + + + + | RED CELL | 5.07 | 4.50 - 5.30 | [facility] | | | COUNT | | M/cu mm | DEPARTMENT | | | | | | OF | | | | | | PATHOLOGY | | + + + + + + | HEMOGLOBIN | 12.1 (L) | 13.0 - 16.0 | [facility] | | | | | g/dL | DEPARTMENT | | | | | | OF | | | | | | PATHOLOGY | | + + + + + + | HEMATOCRIT | 37.0 | 37.0 - 49.0 % | [facility] | | | | | | DEPARTMENT | | | | | | OF | | | | | | PATHOLOGY | | + + + + + + | MCV | 72.9 (L) | 80.0 - 96.0 fL | [facility] | | | | | | DEPARTMENT | | | | | | OF | | | | | | PATHOLOGY | | + + + + + + | MCHC | 32.6 (L) | 33.4 - 35.5 | [facility] | | | | | g/dL | DEPARTMENT | | | | | | OF | | | | | | PATHOLOGY | | + + + + + + | RDW | 16.2 (H) | 11.5 - 15.0 % | [facility] | | | | | | DEPARTMENT | | | | | | OF | | | | | | PATHOLOGY | | + + + + + + | PLATELET | 238 | 150 - 400 K/cu | [facility] | | | COUNT | | mm | DEPARTMENT | | | | | | OF | | | | | | PATHOLOGY | | + + + + + + | RBC | Anisocytosis ++ | | [facility] | | | MORPHOLOGY | | | DEPARTMENT | | | | | | OF | | | | | | PATHOLOGY | | | | | | | | | | | | | | | | | | | | | | | | | | | | | | | | | | Hypochromasia + | | | | | | | | | | | | | | | | | | | | | | | | | | | | | | | | | | | | | | | | | | | | | | | | | | | | | | Microcytosis ++ | | | | + + + + + + + + | Specimen | + + | Blood - Blood | + + + + + + + | Performing | Address | City/State/Zipcode | Phone Number | | Organization | | | | + + + + + | [facility] | [address] | [place], [place] [address] | | | PATHOLOGY | [address] [...] | acetaminophen (aka TYLENOL) | Given | 11/21/19 | 650 mg | | | | tablet 650 mg 650 mg, oral, | | 12 10:00 | | | | | ONCE, 1 dose, Thu11/21/11 at 1000 | | AM PDT | | | | + +--------+ +--------+------+------+ +---+---+ | | | +---+---+ + +---------+ +--------+--------+---+ | inFLIXimab (aka REMICADE) IV | New Bag | 11/21/19 | 400 mg | mL/hr | | | 400 mg 400 mg, intravenous, | | 12 10:55 | | | | | ONCE, 1 dose, Thu11/21/11 at 1000 | | AM PDT | | | | + +---------+ +--------+--------+---+ +---+---+ | | | +---+---+ + +-------+ +-------+---+---+ | loratadine (aka CLARITIN) | Given | 11/21/19 | 10 mg | | | | tablet 10 mg 10 mg, oral, ONCE, | | 12 10:00 | | | | | 1 dose, 11/21/11 at 1000 | | AM PDT | | | | + +-------+ +-------+---+---+ +---+---+ | | | +---+---+ documented in this encounter
--- OUTSIDE RECORDS SUMMARY | ~2019-02-23 | XMS | Encounter Summary ---
Demographics + + + | Address | [address] | | | [place] [address] | + + + | Home Phone [...] + | Debora Resendiz | ECON | [id number] | | | | | [place] | | | | | [address] | | + + + + + | Quang Rseendiz | ECON | Unknown | | + + + + + | Vesna Hernandez | ECON | Unknown | | + + + + + | Pradeep Hyatt | ECON | Unknown | Unavailable | + + + + + | Lonnie yHatt | ECON | Unknown | Unavailable | + + + + + | Jeremias | ECON | Unknown | | + + + + + Care Team Providers + +------+ + | Care Fishing Vessel Deckhand Name | Role | Phone | + [...] | +--------+ + + + + | 01/03/ | Telephone | Pediatric | Tania Foster MD | Care Coordination | | 2016 | | Gastroenterology at | [address] | | | | | [place] | [place], | | | | | [facility] | [place] [address] | | | | | [address] | [phone] | | | | | Mailcode: [facility] | | | | | | [place] | | | | | | [place], [place] | | | | | | [address] | | | | | | [phone] | | | +--------+ + + + [...]
--- OUTSIDE RECORDS SUMMARY | ~2019-02-23 | XMS | Encounter Summary ---
Demographics + + + | Address | [address] | | | [place] [address] | + + + | Home Phone | | + + + | Preferred Language | Unknown | + + + | Marital Status | Single | + + + | Christian Affiliation | NON | + + + [...] + | Debora Resendiz | ECON | [address] | | | | | [place] | | | | | [address] | | + + + + + [...] Team Providers + +------+ + | Care Legislative Correspondent Name | Role | Phone | + +------+ + | Tracey Galeas MD | PCP | Unavailable | + +------+ + Encounter Details +--------+------+ + + + | Date | Type | Department | Care Team | Description | +--------+------+ + + + | 04/18/ | Lab | Lab Center at [facility] | | Crohn's disease, | | 2013 | | 7th Floor [address] | | small and large | | | | [address] [place], | | intestine with | | | | [place] [address] | | granuloma in the | | | | [phone] | | colon, severe | | | | | | duodenitis | +--------+------+ + + + Social History [...] | + +--------+ + + + | CBC AND AUTO DIFF | Routin | 04/18/2013 | Crohn's disease, | Results for this | | | e | 4:37 PM | small and large | procedure are in the | | | | PST | intestine with | results section. | | | | | granuloma in the | | | | | | colon, severe | | | | | | duodenitis | | + +--------+ + + + | CBC, WITH | Routin | 04/18/2013 | Crohn's disease, | Results for this | | DIFFERENTIAL | e | 4:37 PM | small and large | procedure are in the | | | | PST | intestine with | results section. | | | | | granuloma in the | | | | | | colon, severe | | | | | | duodenitis | | + +--------+ + + + | VITAMIN D, | Routin | 04/18/2013 | Crohn's disease, | Results for this | | 25-HYDROXY, SERUM | e | 4:37 PM | small and large | procedure are in the | | | | PST | intestine with | results section. | | | | | granuloma in the | | | | | | colon, severe | | | | | | duodenitis | | + +--------+ + + + | COMPLETE METABOLIC | Routin | 04/18/2013 | Crohn's disease, | Results for this | | SET | e | 4:37 PM | small and large | procedure are in the | | (NA,K,CL,CO2,BUN,CRE | | PST | intestine with | results section. | | AT,GLUC,CA,AST,ALT,B | | | granuloma in the | | | LAYLA TOTAL,ALK | | | colon, severe | | | PHOS,ALB,PROT TOTAL) | | | duodenitis | | + +--------+ + + + | C-REACTIVE PROTEIN | Routin | 04/18/2013 | Crohn's disease, | Results for this | | | e | 4:37 PM | small and large | procedure are in the | | | | PST | intestine with | results section. | | | | | granuloma in the | | | | | | colon, severe | | | | | | duodenitis | | + +--------+ + + + | SEDIMENTATION RATE | Routin | 04/18/2013 | Crohn's disease, | Results for this | | | e | 4:37 PM | small and large | procedure are in the | | | | PST | intestine with | results section. | | | | | granuloma in the | | | | | | colon, severe | | | | | | duodenitis | | + +--------+ + + + | GGT, PLASMA | Routin | 04/18/2013 | Crohn's disease, | Results for this | | | e | 4:37 PM | small and large | procedure are in the | | | | PST | intestine with | results section. | | | | | granuloma in the | | | | | | colon, severe | | | | | | duodenitis | | + +--------+ + + + documented in this encounter Results CBC AND AUTO DIFF (04/18/2013 4:37 PM PST) + + + + + + | Component | Value | Ref Range | Performed | Pathologist | | | | | At | Signature | + + + + + + | WHITE CELL | 6.12 | 4.90 - 15.50 | [facility] | | | COUNT | | K/cu mm | LABORATORY | | | | | | SERVICES, | | | | | | CORE | | + + + + + + | RED CELL | 5.69 (H) | 4.50 - 5.30 | [facility] | | | COUNT | | M/cu mm | LABORATORY | | | | | | SERVICES, | | | | | | CORE | | + + + + + + | HEMOGLOBIN | 14.2 | 13.0 - 16.0 | [facility] | | | | | g/dL | LABORATORY | | | | | | SERVICES, | | | | | | CORE | | + + + + + + | HEMATOCRIT | 43.6 | 37.0 - 49.0 % | [facility] | | | | | | LABORATORY | | | | | | SERVICES, | | | | | | CORE | | + + + + + + | MCV | 76.6 (L) | 80.0 - 96.0 fL | [facility] | | | | | | LABORATORY | | | | | | SERVICES, | | | | | | CORE | | + + + + + + | MCHC | 32.6 (L) | 33.0 - 35.5 | [facility] | | | | | g/dL | LABORATORY | | | | | | SERVICES, | | | | | | CORE | | + + + + + + | RDW SD | 38.4 | 35.1 - 46.3 fL | [facility] | | | | | | LABORATORY | | | | | | SERVICES, | | | | | | CORE | | + + + + + + | PLATELET | 226 | 150 - 400 K/cu | [facility] | | | COUNT | | mm | LABORATORY | | | | | | SERVICES, | | | | | | CORE | | + + + + + + | MPV | 9.8 | 9.7 - 12.3 fL | [facility] | | | | | | LABORATORY | | | | | | SERVICES, | | | | | | CORE | | + + + + + + | NRBC% | 0.0 | 0.0 - 0.3 % | [facility] | | | | | | LABORATORY | | | | | | SERVICES, | | | | | | CORE | | + + + + + + | NRBC# | 0.00 | 0.00 - 0.02 | [facility] | | | | | K/cu mm | LABORATORY | | | | | | SERVICES, | | | | | | CORE | | + + + + + + | NEUTROPHIL | 49.0 | 41.0 - 76.0 % | [facility] | | | % | | | LABORATORY | | | | | | SERVICES, | | | | | | CORE | | + + + + + + | LYMPHOCYTE | 39.7 | 7.0 - 41.0 % | [facility] | | | % | | | LABORATORY | | | | | | SERVICES, | | | | | | CORE | | + + + + + + | MONOCYTE % | 8.3 | 3.0 - 13.0 % | [facility] | | | | | | LABORATORY | | | | | | SERVICES, | | | | | | CORE | | + + + + + + | EOS % | 2.0 | 0.0 - 6.0 % | [facility] | | | | | | LABORATORY | | | | | | SERVICES, | | | | | | CORE | | + + + + + + | BASO % | 0.8 | 0.0 - 2.0 % | [facility] | | | | | | LABORATORY | | | | | | SERVICES, | | | | | | CORE | | + + + + + + | IG% | 0.2 | 0.0 - 0.6 % | [facility] | | | | | | LABORATORY | | | | | | SERVICES, | | | | | | CORE | | + + + + + + | NEUTROPHIL | 3.00 | 2.80 - 11.10 | [facility] | | | # | | K/cu mm | LABORATORY | | | | | | SERVICES, | | | | | | CORE | | + + + + + + | LYMPHOCYTE | 2.43 | 0.40 - 3.20 | [facility] | | | # | | K/cu mm | LABORATORY | | | | | | SERVICES, | | | | | | CORE | | + + + + + + | MONOCYTE # | 0.51 | 0.30 - 1.30 | [facility] | | | | | K/cu mm | LABORATORY | | | | | | SERVICES, | | | | | | CORE | | + + + + + + | EOS # | 0.12 | 0.00 - 0.30 | [facility] | | | | | K/cu mm | LABORATORY | | | | | | SERVICES, | | | | | | CORE | | + + + + + + | BASO # | 0.05 | 0.00 - 0.20 | [facility] | | | | | K/cu mm | LABORATORY | | | | | | SERVICES, | | | | | | CORE | | + + + + + + | IG# | 0.01 | 0.00 - 0.03 | [facility] | | | | | K/cu mm | LABORATORY | | | | | | SERVICES, | | | | | | CORE | | + + + + + + + + | Specimen | + + | Blood - Blood | + + + + + | Narrative | Performed At | + + + | Immature Granulocyes (IG) include metamyelocytes, myelocytes | [facility] | | and promyelocytes. Bands are not included in the IG count. | LABORATORY | | | SERVICES, CORE | + + + + + + + + | Performing | Address | City/State/Zipcode | Phone Number | | Organization | | | | + + + + + | [facility] | [address] | [place] [address] | | | SERVICES, CORE | [address] | | | + + + + + GGT, PLASMA (04/18/2013 4:37 PM PST) + +-------+ + + + [...] [facility] | [address] | [place] [address] | | | SERVICES, CORE | [address] | | | + + + + + SEDIMENTATION RATE (04/18/2013 4:37 PM PST) + +-------+ + + + [...] [facility] | [address] | [place] [address] | | | SERVICES, CORE | [address] | | | + + + + + VITAMIN D, 25-HYDROXY, SERUM (04/18/2013 4:37 PM PST) + + + + + + | Component | Value | Ref Range | Performed | Pathologist | | | | | At | Signature | + + + + + + | VITAMIN D | 15.5 (L) | 20 - 80 ng/mL | [facility] | | [...] | + + + + + | [facility] | [address] | [place] [address] | | | SERVICES, SPECIAL | [address] | | | | IMM + COAG | | | | + + + + + C-REACT PRTN (FOR INFLAMMATION) (04/18/2013 4:37 PM PST) + +-------+ + + + | Component | Value | Ref Range | Performed | Pathologist | | | | | At | Signature | + +-------+ + + + | C-REACTIVE | <0.5 | <=0.8 mg/dL | [facility] | | | PROTE[facility] | | | [facility] | | | | | | [facility] | | + +-------+ + + + + + | Specimen | + + | Blood - Blood | + + + + + + + | Performing | Address | City/State/Zipcode | Phone Number | | Organization | | | | + + + + + | [facility] | [address] | [place] [address] | | | [place] | | | | + + + + + COMPLETE METABOLIC SET (NA,K,CL,CO2,BUN,CREAT,GLUC,CA,AST,ALT,BILI TOTAL,ALK PHOS,ALB,PROT TOTAL) (04/18/2013 4:37 PM PST) + +---------+ + + + | Component | Value | Ref Range | Performed | Pathologist | | | | | At | Signature | + +---------+ + + + | GLUCOSE, | 94 | 60 - 99 mg/dL | [facility] | | | PLASMA | | | LABORATORY | | | (LAB) | | | SERVICES, | | | | | | CORE | | + +---------+ + + + | BUN, PLASMA | 10 | 6 - 20 mg/dL | [facility] | | | (LAB) | | | LABORATORY | | | | | | SERVICES, | | | | | | CORE | | + +---------+ + + + | CREATININE | 0.75 | 0.46 - 0.81 | [facility] | | | PLASMA | | mg/dL | LABORATORY | | | (LAB) | | | SERVICES, | | | | | | CORE | | + +---------+ + + + | SODIUM, | 137 | 136 - 145 | [facility] | | | PLASMA | | mmol/L | LABORATORY | | | (LAB) | | | SERVICES, | | | | | | CORE | | + +---------+ + + + | POTASSIUM, | 4.1 | 3.4 - 5.0 | [facility] | | | PLASMA | | mmol/L | LABORATORY | | | (LAB) | | | SERVICES, | | | | | | CORE | | + +---------+ + + + | CHLORIDE, | 104 | 97 - 108 mmol/L | [facility] | | | PLASMA | | | LABORATORY | | | (LAB) | | | SERVICES, | | | | | | CORE | | + +---------+ + + + | TOTAL CO2, | 30 | 21 - 32 mmol/L | [facility] [...] +---------+ + + + | BILIRUBIN | 0.4 | 0.3 - 1.2 mg/dL | [facility] | | | TOTAL | | | LABORATORY | | | | | | SERVICES, | | | | | | CORE | | + +---------+ + + + | TOTAL | 7.6 | 6.4 - 8.2 g/dL | [facility] [...] + + + | ALK PHOS | 143 | 55 - 220 U/L | [facility] | | | | | | LABORATORY | | | | | | SERVICES, | | | | | | CORE | | + +---------+ + + + | AST(SGOT) | 14 (L) | 15 - 41 U/L | [facility] [...] + + + | ANION GAP | 3 | mmol/L | [facility] | | | [...] Lab only. | LABORATORY | | | SERVICES, CORE | + + + + + + + + | Performing | Address | City/State/Zipcode | Phone Number | | Organization | | | | + + + + + | [facility] | [address] | [place] [address] | | | SERVICES, CORE | [address] [...]
--- OUTSIDE RECORDS SUMMARY | ~2019-02-23 | XMS | Encounter Summary ---
Demographics + + + | Address | [address] | | | [place] [address] | + + + | Home Phone | | + + + | Preferred Language | Unknown | + + + | Marital Status | Single | + + + | Yazdanism Affiliation | NON | + + + | Race | White | + + + | Ethnic Group | Not or | + + + Author + + + | Author | [facility] | + + + | Organization | [facility] | + + + | Address | Unknown | + + + | Phone | Unavailable | + + + Support + + + + + | Name | Relationship | Address | Phone | + + + + + | Debora Resendiz | ECON | [address] | | | | | [place] | | | | | [address] | | + + + + + [...] Team Providers + +------+ + | Care Chief Passenger Ship Steward/Stewardess Name | Role | Phone | + +------+ + | Tracey Galeas MD | PCP | Unavailable | + +------+ + Reason for Visit + + + | Reason | Comments | + + + | Refill Request | [place]da | + + + Encounter Details +--------+ + + + + | Date | Type | Department | Care Team | Description | +--------+ + + + + | 02/28/ | Telephone | Pediatric | Tania Foster MD | Refill Request | | 2015 | | Gastroenterology at | [address] | ([place]aela) | | | | [place] | [place], | | | | | [facility] | [place] [address] | | | | | [address] | [phone] | | | | | Mailcode: [facility] | | | | | | [place] | | | | | | [place], [place] | | | | | | [address] | | | | | | [phone] | | | +--------+ + + + [...]
--- OUTSIDE RECORDS SUMMARY | ~2019-02-23 | XMS | Encounter Summary ---
Demographics + + + | Address | [address] | | | [place] [address] | + + + | Home Phone | | + + + | Preferred Language | Unknown | + + + | Marital Status | Single | + + + | Roman Catholic Affiliation | NON | + + + | Race | White | + + + | Ethnic Group | Not or | + + + Author + + + | Author | [facility] | + + + | Organization | [facility] | + + + | Address | Unknown | + + + | Phone | Unavailable | + + + Support + + + + + | Name | Relationship | Address | Phone | + + + + + | Debora Resendiz | ECON | [address] | | | | | [place] | | | | | [address] | | + + + + + [...] Team Providers + +------+ + | Care Depot Agent Name | Role | Phone | + +------+ + | Tracey Galeas MD | PCP | Unavailable | + +------+ + Reason for Visit +--------+ + | Reason | Comments | +--------+ + | 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 | +--------+ + Encounter Details +--------+ + + + + | Date | Type | Department | Care Team | Description | +--------+ + + + + | 10/18/ | Street Inspector | Pediatric | Tania Foster MD | Crohn's disease, | | 2012 | | Gastroenterology at | [address] [facility] | small and large | | | | [place] | [address] [place], | intestine with | | | | [facility] | [place] [address] | granuloma in the | | | | [address] | [phone] | colon, severe | | | | Mailcode: CDRCP | | duodenitis (Primary | | | | [place] | | Dx); High risk | | | | [place], [place] | | medications (not | | | | [address] | | anticoagulants) | | | | [phone] | | long-term use | +--------+ + + + + Social [...] on filedocumented as of this encounter Results HEPATITIS B SURFACE AB QUANT, SERUM (01/18/2013 [...] | + + + + + | [facility] - | [address] | [place] [address] | | | MINDEN | | | | + + + + + documented in this encounter Visit Diagnoses + + | Diagnosis | + + | Crohn's disease, 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
--- OUTSIDE RECORDS SUMMARY | ~2019-02-23 | XMS | Encounter Summary ---
Demographics + + + | Address | [address] | | | [place] [address] | + + + | Home Phone | | + + + | Preferred Language | Unknown | + + + | Marital Status | Single | + + + | Orthodoxy Affiliation | NON | + + + | Race | White | + + + | Ethnic Group | Not or | + + + Author + + + | Author | [facility] | + + + | Organization | [facility] | + + + | Address | Unknown | + + + | Phone | Unavailable | + + + Support + + + + + | Name | Relationship | Address | Phone | + + + + + | Debora Resendiz | ECON | [address] | | | | | [place] | | | | | [address] | | + + + + + [...] Team Providers + +------+ + | Care Roof Cement And Paint Maker Name | Role | Phone | + +------+ + | Tracey Galeas MD | PCP | Unavailable | + +------+ + Reason for Visit +--------+ + | Reason | Comments | +--------+ + | Nausea | | +--------+ + Encounter Details +--------+ + + + + | Date | Type | Department | Care Team | Description | +--------+ + + + + | 06/11/ | Telephone | Pediatric | Tania Foster MD | Nausea | | 2011 | | Gastroenterology at | [address] [facility] | | | | | [place] | [facility], | | | | | [facility] | [place] [address] | | | | | [address] | [phone] | | | | | Mailcode: [facility] | | | | | | [place] | | | | | | [place], [place] | | | | | | [address] | | | | | | [phone] | | | +--------+ + + + [...]
--- OUTSIDE RECORDS SUMMARY | ~2019-02-23 | XMS | Encounter Summary ---
Demographics + + + | Address | [address] | | | [place] [address] | + + + | Home Phone [...] Author + + + | Author | [facility] | + + + | Organization | [facility] | + + + | Address | Unknown | + + + | Phone | Unavailable | + + + Support + + + + + | Name | Relationship | Address | Phone | + + + + + | Deboar Resendiz | ECON | [address] | | | | | [place] | | | | | [address] | | + + + + + [...] Team Providers + +------+ + | Care Cigarette Machine Filler Name | Role | Phone | + [...] | | | | [facility] | [address] | | | | | | CARE | [facility] | | | | | [facility] | [place] | | | | | | [address] | [place], [place] | | | | | | [place] | [address] | | | | | | [place] [address] | | | | | | | [facility] | | | | | | | [address] | | | | | | | Phone: | | | | | | | [phone] | | | | | | | Fax: | | | | | | | [phone] | | +--------+--------+ + + + + Encounter Details +--------+---------+ + + + | Date | Type | Department | Care Team | Description | +--------+---------+ + + + | 11/30/ | Office | [facility] | Angelo Ross, | Corneal Scar; | | 2007 | Visit | [facility] | MD | Unspecified | | | | Kelechi Bryant [address] | | Keratitis | | | | [place] | | | | | | Mailcode: [place] | | | | | | [place] [address] | | | | | | [phone] | | | +--------+---------+ + + + [...] BRANDT MD [facility] [address] [place] [address] 12 y.o. year old male from [place]: Chief Complaint Patient presents with New patient [...] Letter to Dr. Brandt [facility] Plan of Treatment Not on filedocumented as of this encounter Visit Diagnoses + + | Diagnosis | + + | Corneal scar Corneal opacity, unspecified | + + | Unspecified keratitis | + + documented in this encounter
--- OUTSIDE RECORDS SUMMARY | ~2019-02-23 | XMS | Encounter Summary ---
Demographics + + + | Address | [address] | | | [place] [address] | + + + | Home Phone | | + + + | Preferred Language | Unknown | + + + | Marital Status | Single | + + + | Lutheran Affiliation | NON | + + + [...] + | Debora Resendiz | ECON | [address] | | | | | [place] | | | | | [address] | | + + + + + [...] Providers + +------+ + | Care Associate Software Application Engineer Name | Role | Phone | + +------+ + | Tracey Galeas MD | PCP | Unavailable | + +------+ + Encounter Details +--------+ + + + + | Date | Type | Department | Care Team | Description | +--------+ + + + + | 06/01/ | Abstract | Pediatric | Tania Foster MD | | | 2013 | | Gastroenterology at | [address] | | | | | [place] | [facility] | | | | | [facility] | [place] [address] | | | | | [address] | [phone] | | | | | Mailcode: [facility] | | | | | | [place] | | | | | | [place], [place] | | | | | | [address] | | | | | | [phone] | | | +--------+ + + + [...] | + +--------+ + + + | ESR (SED RATE) - CHO | Routin | 05/31/2013 | | Results for this | | | e | 11:14 AM | | procedure are in the | | | | PDT | | results section. | + +--------+ + + + | CBC, WITH | Routin | 05/31/2013 | | Results for this | | DIFFERENTIAL | e | 11:14 AM | | procedure are in the | | | | PDT | | results section. | + +--------+ + + + | COMPLETE METABOLIC | Routin | 05/31/2013 | | Results for this | | SET | e | 11:14 AM | | procedure are in the | | (NA,K,CL,CO2,BUN,CRE | | PDT | | results section. | | AT,GLUC,CA,AST,ALT,B | | | | | | LAYLA TOTAL,ALK | | | | | | PHOS,ALB,PROT TOTAL) | | | | | + +--------+ + + + | [facility] IGG AB, | Routin | 05/31/2013 | | Results for this | | SERUM | e | 11:14 AM | | procedure are in the | | | | PDT | | results section. | + +--------+ + + + documented in this encounter Results [facility] IGG AB, SERUM (05/31/2013 11:14 AM PDT) + +--------+ + + + | Component | Value | Ref Range | Performed | Pathologist | | | | | At | Signature | + +--------+ + + + | RUBELLA IGG | 151 | >=15 IU/mL | [facility] - | | | AB | | | AIRPORT - | | | | | | [place] | | + +--------+ + + + | RUBELLA IGG | immune | | [facility] - | | | | | | AIRPORT - | | | INTERPRETAT | | | [place] | | | ION | | | | | + +--------+ + + + + + | Specimen | + + | Blood - Blood | + + + + + + + | Performing | Address | City/State/Zipcode | Phone Number | | Organization | | | | + + + + + | [facility] | [address] | [place] [address] | | | [place] | | | | + + + + + COMPLETE METABOLIC SET (NA,K,CL,CO2,BUN,CREAT,GLUC,CA,AST,ALT,BILI TOTAL,ALK PHOS,ALB,PROT TOTAL) (05/31/2013 11:14 AM PDT) + +-------+ + + + | Component | Value | Ref Range | Performed | Pathologist | | | | | At | Signature | + +-------+ + + + | GLUCOSE, | 94 | 60 - 200 mg/dL | [facility] - | | | PLASMA | | | AIRPORT - | | | (LAB) | | | [place] | | + +-------+ + + + | BUN, PLASMA | 14 | 7 - 25 mg/dL | [facility] - | | | (LAB) | | | AIRPORT - | | | | | | [place] | | + +-------+ + + + | CREATININE | 0.74 | 0.60 - 1.30 | [facility] - | | | PLASMA | | mg/dL | AIRPORT - | | | (LAB) | | | [place] | | + +-------+ + + + | TOTAL | 7.6 | 6.4 - 8.3 g/dL | [facility] - | | | PROTEIN, | | | AIRPORT - | | | PLASMA | | | [place] | | | (LAB) | | | | | + +-------+ + + + | ALBUMIN, | 4.70 | 3.40 - 5.20 | [facility] | | | PLASMA | | g/dL | AIRPORT - | | | (LAB) | | | [place] | | + +-------+ + + + | CALCIUM, | 9.6 | 8.9 - 10.7 | [facility] | | | PLASMA | | mg/dL | AIRPORT - | | | (LAB) | | | [place] | | + +-------+ + + + | BILIRUBIN | 0.4 | <=1.1 | [facility] - | | | TOTAL | | Transcutaneous | AIRPORT - | | | | | Bilirubinometer | [place] | | + +-------+ + + + | ALK PHOS | 160 | 100 - 390 U/L | [facility] - | | | | | | AIRPORT - | | | | | | [place] | | + +-------+ + + + | AST(SGOT) | 22 | 5 - 43 U/L | [facility] | | | | | | AIRPORT - | | | | | | [place] | | + +-------+ + + + | SODIUM, | 140 | 136 - 148 | [facility] - | | | PLASMA | | mmol/L | AIRPORT - | | | (LAB) | | | [place] | | + +-------+ + + + | POTASSIUM, | 4.4 | 3.5 - 5.1 | [facility] | | | PLASMA | | mmol/L | AIRPORT - | | | (LAB) | | | [place] | | + +-------+ + + + | CHLORIDE, | 105 | 97 - 109 mmol/L | [facility] | | | PLASMA | | | AIRPORT - | | | (LAB) | | | [place] | | + +-------+ + + + | TOTAL CO2, | 26 | 22 - 32 mmol/L | [facility] - | | | PLASMA | | | AIRPORT - | | | (LAB) | | | [place] | | + +-------+ + + + | ALT (SGPT) | 15 | 10 - 58 U/L | [facility] [...] + | [facility] - | [address] | [place] [address] | | | [place] | | | | + + + + + ESR (SED RATE) - EDWARD (05/31/2013 11:14 AM PDT) + +-------+ + + + | Component | Value | Ref Range | Performed | Pathologist | | | | | At | Signature | + +-------+ + + + | ESR (SED | 3 | 20 | [facility] - | | | RATE) [...] | + + + + + | [facility] - | [address] | [place] [address] | | | [place] | | | | + + + + + CBC, WITH DIFFERENTIAL (05/31/2013 11:14 AM PDT) + + + + + + | Component | Value | Ref Range | Performed | Pathologist | | | | | At | Signature | + + + + + + | WHITE CELL | 5.6 | 4.0 - 10.5 K/cu | [facility] - | | | COUNT | | mm | [facility] - | | | | | | [place] | | + + + + + + | RED CELL | 5.93 (A) | 4.0 - 5.50 M/cu | [facility] - | | | COUNT | | mm | [facility] - | | | | | | [place] | | + + + + + + | HEMOGLOBIN | 15.0 | 13 - 17 g/dL | [facility] - | | | | | | AIRPORT - | | | | | | [place] | | + + + + + + | HEMATOCRIT | 46.4 | 37 - 50 % | [facility] - | | | | | | AIRPORT - | | | | | | [place] | | + + + + + + | MCV | 78.2 (A) | 82 - 100 fL | [facility] - | | | | | | AIRPORT - | | | | | | [place] | | + + + + + + | MCH | 25.9 (A) | 28 - 35 pg | [facility] - | | | | | | AIRPORT - | | | | | | [place] | | + + + + + + | MCHC | 32.8 | 31 - 36.5 g/dL | [facility] - | | | | | | AIRPORT - | | | | | | [place] | | + + + + + + | PLATELET | 259 | 140 - 375 K/cu | [facility] - | | | COUNT | | mm | AIRPORT - | | | | | | [place] | | + + + + + + | NEUTROPHIL | 42 | % | [facility] - | | | % | | | AIRPORT - | | | | | | [place] | | + + + + + + | LYMPHOCYTE | 46.70 | % | [facility] - | | | % | | | AIRPORT - | | | | | | [place] | | + + + + + + | MONOCYTE % | 8.80 | % | [facility] - | | | | | | AIRPORT - | | | | | | [place] | | + + + + + + | EOS % | 2.0 | % | [facility] - | | | | | | AIRPORT - | | | | | | [place] | | + + + + + + | BASO % | 0.60 | % | [facility] - | | | | | | [facility]PORT - | | | | | | [place] | | + + + + + + | RDW | 14.6 (A) | 11 - 14.5 % | [facility] - | | | | | | AIRPORT - | | | | | | [place] | | + + + + + + | MPV | 10.6 | fL | [facility] | | | | | | AIRPORT - | | | | | | [place] | | + + + + + + | NEUTROPHIL | 2.33 | 1.80 - 8.30 | [facility] - | | | # | | K/cu mm | [facility]PORT - | | | | | | [place] | | + + + + + + | LYMPHOCYTE | 2.56 | 1.0 - 4.80 K/cu | [facility] - | | | # | | mm | [facility] - | | | | | | [place] | | + + + + + + | MONOCYTE # | 0.49 | 0 - 0.90 K/cu | [facility] - | | | | | mm | [facility]PORT - | | | | | | [place] | | + + + + + + | EOS # | 0.11 | 0 - 0.40 K/cu | [facility] - | | | | | mm | [facility]PORT - | | | | | | [place] | | + + + + + + | BASO # | 0.03 | 0 - 0.20 | [facility] - | | [...] + | [facility] - | [address] | [place] [address] | | | [place] | | | | + + + + + documented in this encounter Visit Diagnoses Not on filedocumented in this encounter"
--- OUTSIDE RECORDS SUMMARY | ~2019-02-23 | XMS | Encounter Summary ---
Demographics + + + | Address | [address] | | | [place] [address] | + + + | Home Phone [...] Author + + + | Author | [facility] | + + + | Organization | [facility] | + + + | Address | Unknown | + + + | Phone | Unavailable | + + + Support + + + + + | Name | Relationship | Address | Phone | + + + + + | Debora Resendiz | ECON | [address] | | | | | [place] | | | | | [address] | | + + + + + [...] Team Providers + +------+ + | Care Cargo Supervisor Name | Role | Phone | [...] | +--------+ + + + + | 08/16/ | Telephone | Pediatric | Tania Foster MD | Care Coordination | | 2016 | | Gastroenterology at | [address] | | | | | [place] | [facility] [place], | | | | | [facility] | [place] [address] | | | | | [address] | [phone] | | | | | Mailcode: [facility] | | | | | | [place] | | | | | | [place], [place] | | | | | | [address] | | | | | | [phone] | | | +--------+ + + + [...]
--- OUTSIDE RECORDS SUMMARY | ~2019-02-23 | XMS | Encounter Summary ---
Demographics + + + | Address | [address] | | | [place] [address] | + + + | Home Phone | | + + + | Preferred Language | Unknown | + + + | Marital Status | Single | + + + | Congregational Affiliation | NON | + + + | Race | White | + + + | Ethnic Group | Not or | + + + Author + + + | Author | [facility] | + + + | Organization | [facility] | + + + | Address | Unknown | + + + | Phone | Unavailable | + + + Support + + + + + | Name | Relationship | Address | Phone | + + + + + | Debora Resendiz | ECON | [address] | | | | | [place] | | | | | [address] | | + + + + + [...] Team Providers + +------+ + | Care Hand Model Name | Role | Phone | + +------+ + | Tracey Galeas MD | PCP | Unavailable | + +------+ + Reason for Visit +--------+ + | Reason | Comments | +--------+ + | Other | back pain | +--------+ + Encounter Details +--------+ + + + + | Date | Type | Department | Care Team | Description | +--------+ + + + + | 08/27/ | Telephone | Pediatric | Tania Foster MD | Other (back pain) | | 2011 | | Gastroenterology at | [address] | | | | | [place] | [facility] [place], | | | | | [facility] | [place] [address] | | | | | [address] [facility] | [phone] | | | | | Mailcode: [facility] | | | | | | [place] | | | | | | [place], [place] | | | | | | [address] | | | | | | [phone] | | | +--------+ + + + [...]
--- OUTSIDE RECORDS SUMMARY | ~2019-02-23 | XMS | Encounter Summary ---
Demographics + + + | Address | [address] | | | [place] [address] | + + + | Home Phone | | + + + | Preferred Language | Unknown | + + + | Marital Status | Single | + + + | Anabaptist Affiliation | NON | + + + [...] + | Debora Resendiz | ECON | [address] | | | | | [place] | | | | | [address] | | + + + + + [...] Team Providers + +------+ + | Care Crutcher Helper Name | Role | Phone | + +------+ + | Tracey Galeas MD | PCP | Unavailable | + +------+ + Encounter Details +--------+ + + + + | Date | Type | Department | Care Team | Description | +--------+ + + + + | 01/19/ | MyChart | Pediatric | Tania Foster MD | RE: Today's visit | | 2012 | Encounter | Gastroenterology at | [address] | | | | | [place] | [facility] [place], | | | | | [facility] | [place] [address] | | | | | [address] | [phone] | | | | | Mailcode: [facility] | | | | | | [place] | | | | | | [place], [place] | | | | | | [address] | | | | | | [phone] | | | +--------+ + + + [...]
--- OUTSIDE RECORDS SUMMARY | ~2019-02-23 | XMS | Encounter Summary ---
Demographics + + + | Address | [address] | | | [place] [address] | + + + | Home Phone [...] + | Debora Resendiz | ECON | [address] | | | | | [place] | | | | | [address] | | + + + + + [...] Team Providers + +------+ + | Care Remote Coders Name | Role | Phone | + +------+ + | Tracey Galeas MD | PCP | Unavailable | + +------+ + Encounter Details +--------+ + + + + | Date | Type | Department | Care Team | Description | +--------+ + + + + | 06/12/ | Abstract | Pediatric | Tania Foster MD | | | 2011 | | Gastroenterology at | [address] | | | | | [place] | [facility] | | | | | [facility] | [place] [address] | | | | | [address] [facility] | [phone] | | | | | Mailcode: [facility] | | | | | | [place] | | | | | | [place], [place] | | | | | | [address] | | | | | | [phone] | | | +--------+ + + + [...]
--- OUTSIDE RECORDS SUMMARY | ~2019-02-23 | XMS | Encounter Summary ---
Demographics + + + | Address | [address] | | | [place] [address] | + + + | Home Phone [...] + | Debora Resendiz | ECON | [address] | | | | | [place] | | | | | [address] | | + + + + + [...] Team Providers + +------+ + | Care Echocardiography Technologist Name | Role | Phone | + +------+ + | Tracey Galeas MD | PCP | Unavailable | + +------+ + Reason for Visit + + + | Reason | Comments | + + + | Follow-up visit | | + + + Consultation (Routine) +--------+ + + + + + | Status | Reason | Specialty | Diagnoses / | Referred By | Referred To | | | | | Procedures | Contact | Contact | +--------+ + + + + + | Closed | Specialty | Pediatric | Diagnoses | [place], | Ped Gastro | | | Services | Gastroenterol | Diarrhea | Tracey Chiu MD | [address] | | | Required | ogy | Abnormal | [place] | [address] | | | | | weight gain | PERMANENTE | Mailcode: | | | | | Anemia, | [place] | [facility] | | | | | unspecified | [address] | [address] | | | | | | [address] | [place], [place] | | | | | | [address] | [address] | | | | | | [place], | Phone: | | | | | | [place] [address] | [phone] | | | | | | | Fax: | | | | | | | [phone] | +--------+ + + + + + Encounter Details +--------+---------+ + + + | Date | Type | Department | Care Team | Description | +--------+---------+ + + + | 05/25/ | Office | Pediatric | Tania Foster MD | Crohn's disease, | | 2011 | Visit | Gastroenterology at | [address] | small and large | | | | [place] | [address] [place], | intestine with | | | | [facility] | [place] [address] | granuloma in the | | | | [address] [facility] | [phone] | colon, severe | | | | Mailcode: CDRCP | | duodenitis (Primary | | | | [address] | | Dx) | | | | [place], [place] | | | | | | [address] | | | | | | [phone] | | | +--------+---------+ + + + [...] + + + | Blood Pressure | 130/87 | 05/26/2011 3:57 PM | | | | | PDT | | + + + + + | Pulse | 78 | 05/26/2011 3:57 PM | | | | | PDT [...] + + + + | Weight | 56.1 kg (123 lb 10.9 | 05/26/2011 3:57 PM | | | | oz) | PDT | | + + + + + | Height | 166.8 cm (5' 5.67") | 05/26/2011 3:57 PM | | | | | PDT | | + + + + + | Body Mass Index | 20.16 | 05/26/2011 3:57 PM | | | | | PDT | | + + + + + documented in this encounter Patient Instructions Patient Instructions Tania Foster MD - 05/26/2011 4:00 PM PDTThings to avoid: Celery Asparagus Blanding, popcorn Artichoke hearts Narrowing of the terminal ileum - where the colon meets the small bowel. Please read on the [email or web address] website about remicade. Also check out [employer] and [email or web address]. documented in this encounter Progress Notes Tania Foster MD - 05/26/2011 4:05 PM PDT PEDIATRIC GASTROENTEROLOGY IBD FOLLOW-UP CONSULTATION Jeremias Adames is an 15 y.o. 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 Current medicines include: Current Outpatient Prescriptions Medication Sig azaTHIOprine (IMURAN) 50 mg Oral Tablet Take 2.5 Tabs by mouth once daily. Take at hs, on empty stomach Indications: Crohn's Disease mesalamine EC 400 mg Oral Tablet, Delayed Release (E.C.) Take 2 Tabs by mouth three bozena es daily. Indications: Crohn's Disease ondansetron 8 mg Oral Tablet Take 8 mg by mouth every twelve hours as needed. predniSONE 10 mg Oral Tablet Take 1.5 Tabs by mouth once daily. Drop by 5 mg every Satu rday. ranitidine (ZANTAC) 150 mg Oral Tablet Take 1 Tab by mouth two times daily. Changes in Medications since we last saw patient? Tapering prednisone, and awaiting the new metabolite info from the imuran dosing change we made. Interval history update: Patient reports today that stools are 5/day and loose in consistency. Blood or mucus in the stool? Yes, lots of blood Urgency? yes Abdominal pain? Daily, every hour, better after BM Nausea? yes. Vomiting? no. Energy level is tired. Appetite is poor. New medical/surgical issues since last visit? no ROS: Aphthous ulcers? no Any joint or eye pain? no Any cough or nasal discharge recently? yes Any known clotting disorder? no Any recent fever ? Few days ago Any skin problems or rash? no Has weight been stable? Lost 4 lb GI aspects of ROS noted in the Interval History section above. Cardiovascular: Negative Genitourinary:Negative Neurologic: Negative Social history: Lives with grandmother in the summer Missing school? Sometimes Nutrition: Taking multivitamin? yes Calcium intake adequate? Yes Father reports pt forgets to take meds in the afternoon Forgets his afternoon pills. No Known Allergies Ht 166.8 cm (5' 5.67") (42 %ile), Wt 56.1 kg (123 lbs 10.9 oz) (55 %ile), BP 130/87, Pulse 78, BMI 20.16 kg/(m^2). 57.62%ile based on CDC 0-36 Months BMI-for-age data. Examination: Appearance: alert, active and in no apparent distress. Skin: turgor normal, capillary refill brisk, no rashes, petechiae HEENT: normocephalic,PERRLA , sclera nonicteric,nose without discharge, mouth no aphthous l esions, mucous membranes moist, pharynx unremarkable Neck: supple, without thyromegaly Chest: clear to auscultation bilaterally. CV: regular sinus rhythm, normal S1 and S2, no murmurs. Abdomen: normal bowel sounds, soft, no distention, some tenderness to palpation jocelynn in t he RLQ, with fullness, no rebound or guarding,+ fullness in the RLQ or palpable masses, no h epatosplenomegaly Musculoskeletal: grossly intact without clubbing or edema Neuro: normal gait and speech for age Nodes: no signficant cervical or supraclavicular adenopathy Psychiatric- affect normal Patient reports a pain level of 5 today. 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 Still lots of pain an d rectal bleeding. I am concerned that he is partially obstructed due to terminal ileal narr owing, and will keep him on a low roughage diet. We will go up on his prednisone, and await the imuran metabolites to determine if we are in a therapeutic range. We will start flagyl as adjunct Rx. Family will start reading about Remicade. We will consider repeat colonoscopy in June if no improvement, to determine if time to move to Remicade as I suspect he will require this. Plan: 1. The following medications were changed: Started 3 month course of flagyl and went back to 30 mg/day of prednisone. 2. Labs or imaging ordered are listed below, pending - they will sign up for Mychart.. 3.. Education: For further information on GI topics, we direct our families to [email or web address] and [email or web address] 4. Health care maintenance Technical Support Coordinator exam every 2 years. Flu shot reminder: yes Note: Immunosuppressed patients on Remicade, Humira, Cimzia, chronic steroids, methotrexate , imuran or 6-MP should not have live virus vaccinations , including the nasal flu mist, MMR or Varicella vaccination. 5. Next recommended follow-up in GI clinic: 1 month due to the level of his disease activi tyMD [facility] [address] [facility] Mailcode: Cdrcp [facility] [phone] documented in this enco unter Plan of Treatment Not on filedocumented as of this encounter Procedures + +--------+ + + + | Procedure Name | Priori | Date/Time | Associated Diagnosis | Comments | | | ty | | | | + +--------+ + + + | LAB REPORTS | | 05/26/2011 | | Results for this | | | | 12:00 AM | | procedure are in the | | | | PDT | | results section. | + +--------+ + + + | LAB REPORTS | | 05/26/2011 | | Results for this | | | | 12:00 AM | | procedure are in the | | | | PDT | | results section. | + +--------+ + + + documented in this encounter Results LAB REPORTS (05/26/2011 12:00 AM PDT) + + + | Narrative | Performed At | + + + | | | + + + + + | Transcriptions | + + | Other, Faculty - 06/11/2011 11:19 AM PDT | + + LAB REPORTS (05/26/2011 12:00 AM PDT) + + + | Narrative | Performed At | + + + | | | + + + + + | Transcriptions | + + | Lei Crane - 06/09/2011 1:15 PM PDT | + + documented in this encounter Visit Diagnoses + + | Diagnosis | + + | Crohn's disease, small and large intestine with 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, severe | | duodenitis - Primary Regional enteritis of small intestine with large intestine | + + documented in this encounter
--- OUTSIDE RECORDS SUMMARY | ~2019-02-23 | XMS | Encounter Summary ---
Demographics + + + | Address | [address] | | | [place] [address] | + + + | Home Phone [...] Author + + + | Author | [facility] | + + + | Organization | [facility] | + + + | Address | Unknown | + + + | Phone | Unavailable | + + + Support + + + + + | Name | Relationship | Address | Phone | + + + + + | Debora Resendiz | ECON | [address] | | | | | [place] | | | | | [address] | | + + + + + [...] Team Providers + +------+ + | Care Tool Clerk Name | Role | Phone | + +------+ + | Tracey Galeas MD | PCP | Unavailable | + +------+ + Encounter Details +--------+ + + + + | Date | Type | Department | Care Team | Description | +--------+ + + + + | 06/04/ | Documentati | Pediatric | Tania Foster MD | | | 2011 | on | Gastroenterology at | [address] | | | | | [place] | [place], | | | | | [facility] | [place] [address] | | | | | [address] | [phone] | | | | | Mailcode: CDRCP | | | | | | [place] | | | | | | [place], [place] | | | | | | [address] | | | | | | [phone] | | | +--------+ + + + [...]
--- OUTSIDE RECORDS SUMMARY | ~2019-02-23 | XMS | Encounter Summary ---
Demographics + + + | Address | [address] | | | [place] [address] | + + + | Home Phone [...] Author + + + | Author | [facility] | + + + | Organization | [facility] | + + + | Address | Unknown | + + + | Phone | Unavailable | + + + Support + + + + + | Name | Relationship | Address | Phone | + + + + + | Debora Resendiz | ECON | [address] | | | | | [place] | | | | | [address] | | + + + + + [...] Team Providers + +------+ + | Care Leadership Program Associate Name | Role | Phone | + [...] Description | +--------+---------+ + + + | 01/29/ | Surgery | 8S INTRA OP | Tania Foster MD | EGD WITH BIOPSY; | | 2011 | | [place] | [address] | specimen x 4 to | | | | [facility] | [address] [place], | pathology | | | | [facility] Admitting | [place] [address] | | | | | Desk Once | [phone] | | | | | admitted, go to the | | | | | | 8th floor Surgical | | | | | | Desk Located at the | | | | | | [place] [address] | | | | | | [address] [place], | | | | | | [place] [address] | | | +--------+---------+ + + + [...] + + + | Blood Pressure | 102/49 | 01/30/2012 10:45 AM | | | | | PST | | + + + + + | Pulse | 76 | 01/30/2012 12:05 PM | | | | | PST | | + + + + + | Temperature | 36.6 C (97.9 F) | 01/30/2012 12:05 PM | | | | | PST | | + + + + + | Respiratory Rate | 20 | 01/30/2012 12:05 PM | | | | | PST | | + + + + + | Oxygen Saturation | 99% | 01/30/2012 12:05 PM | | | | | PST | | + + + + + | Inhaled Oxygen | - | - | | | Concentration | | | | + + + + + | Weight | 64.1 kg (141 lb 5 | 01/30/2012 8:45 AM | | | | oz) | PST | | + + + + + | Height | - | - | | + + + + + | Body Mass Index | - | - | | + + + + + documented in this encounter Discharge Instructions Instructions Estefani Lees RN - 01/30/2012 Home Care after Upper Endoscopy/Colonoscopy Activity and Medicines: Do not have your child do activities that require coordination for 24 hours (i.e. tricycle or bicycle riding, or any sports requiring coordination). Take usual medication unless directed differently from physician. Resume normal activity tomorrow. Diet: Advance as tolerated to your child s normal diet. Call Your Doctor If: If you see any of these signs, call your doctor right away. There is increased pain in the abdominal region that is different from normal. Note: a lot of air is used to open the areas that were examined, so there may be gas pains. Walk ing or changing positions can help relieve this. Vomiting or rectal bleeding of more than a tablespoon of blood. Fever above 101.5 degrees Fahrenheit. Shortness of breath. Chest or neck pain. Redness, pain, or swelling at IV site. Any new unexplained symptoms. Diet and Medicines: Your child may eat his/her normal diet and take usual medicines unless told otherwise by [facility] doctor. How to Reach Your Doctor: Mon-Fri from 8:00-4:30, call GI Clinic at [phone] After hours, weekends, and holidays, call Hospital Managing Attorney at [phone]. Ask to have your doctor paged. Return Appointment: Call the GI Clinic in one week for biopsy results and follow up. documented in this encounter Medications at Time of Discharge + + + +---------+ + + | Medication | Sig | Dispensed | Refills | Start | End Date | | | | | | Date | | + + + +---------+ + + | cyanocobalamin | INJ '1000 MCG' SQ | | 0 | 10/23/19 | | | 1,000 mcg/mL | ONE TIME DAILY X7D, | | | 12 | 4 | | injection solution | TN '100 MCG' SQ ONCE | | | | | | | WEEKLY X4W | | | | | + + + +---------+ + + documented as of this encounter Plan of Treatment Not on filedocumented as of this encounter Procedures + +--------+ + + + | Procedure Name | Priori | Date/Time | Associated Diagnosis | Comments | | | ty | | | | + +--------+ + + + | ADMINISTER FLU | Routin | 01/30/2012 | | Results for this | | VACCINE IF INDICATED | e | 10:30 AM | | procedure are in the | | BY SCREENING | | PST | | results section. | + +--------+ + + + | H. PYLORI CLOTEST | Routin | 01/30/2012 | | Results for this | | | e | 9:54 AM | | procedure are in the | | | | PST | | results section. | + +--------+ + + + | COLONOSCOPY | Electi | 01/30/2012 | Blood in stool | | | | ve | 9:40 AM | | | | | Surgic | PST | | | | | al | | | | + +--------+ + + + | EGD | Electi | 01/30/2012 | Blood in stool | | | | ve | 9:40 AM | | | | | Surgic | PST | | | | | al | | | | + +--------+ + + + | ANESTHESIA/SEDATION | | 01/30/2012 | | Results for this | | | | 12:00 AM | | procedure are in the | | | | PST | | results section. | + +--------+ + + + | SURGICAL PATHOLOGY | Routin | 01/30/2012 | | Results for this | | | e | | | procedure are in the | | | | | | results section. | + +--------+ + + + documented in this encounter Results H. PYLORI CLOTEST (01/30/2012 9:54 AM PST) + + + + + [...] | + + + + + | [facility] | [address] | [place] [address] | | | [place] | | | | + + + + + ANESTHESIA/SEDATION (01/30/2012 12:00 AM PST) + + + | Narrative | Performed At | + + + | | | | | | + + + + + | Procedure Note | + + | Other, Faculty - 02/04/2012 10:45 AM PST | + + SURGICAL PATHOLOGY (01/30/2012) + + + + + + | Component | Value | Ref Range | Performed | Pathologist | | | | | At | Signature | + + + + + + | SURGICAL | SOURCE OF SPECIMEN:A | | [facility] | | | PATHOLOGY | DuodenumSOURCE OF | | DEPARTMENT | | | | SPECIMEN:B Gastric | | OF | | | | antrumSOURCE OF | | PATHOLOGY | | | | SPECIMEN:C | | | | | | EsophagusSOURCE OF | | | | | | SPECIMEN:D Terminal | | | | | [...] abnormality | | | | | | - Negative for | | | | | | granulomas and dysplasia | | | | | | B: Gastric | | | | | | antrum, biopsy: - | | | | | | Active gastritis, | | | | | | moderate - H. | | | | | | pylori-like organisms | | | | | | identified on | | | | | | immunohistochemical | | | | | | stains - Negative | | | | | | for granulomas and | | | | | | dysplasia C: | | | | | | Esophagus, biopsy: | | | | | | - Squamous epithelium | | | | | | with no diagnostic | | | | | | abnormality - | | | | | | Negative for granulomas | | | | | | and dysplasia D: | | | | | | Terminal ileum, | | | | | | biopsy: - Chronic | | | | | | ileitis with minimal | | | | | | activity and focal | | | | | | granulomas - | | | | | | Negative for dysplasia | | | | | | E: Right colon, | | | | | | biopsy: - Chronic | | | | | | colitis, inactive | | | | | | - Negative for | | | | | | granulomas and dysplasia | | | | | | F: Transverse | | | | | | colon, biopsy: - | | | | | | Colonic mucosa with no | | | | | | diagnostic abnormality | | | | | | - Negative for | | | | | | granulomas and dysplasia | | | | | | G: Left colon, | | | | | | biopsy: - Chronic | | | | | | colitis, inactive | | | | | | - Negative for | | | | | | granulomas and dysplasia | | | | | | (Analyte specific | | | | | | reagents are used in | | | | | | many laboratory tests | | | | | | necessary forstandard | | | | | | medical care and | | | | | | generally do not require | | | | | | FDA approval. This | | | | | | testwas developed and | | | | | | its performance | | | | | | characteristics | | | | | | determined by | | | | | | [facility]. It has | | | | | | not been cleared or | | | | | | approved by the U.S. | | | | | | Food and | | | | | | DrugAdministration.) | | | | | | Case seen by:Rc | | | | | | Francisco/Student | | | | | | FellowMegan Johan | | | | | | M.D., | | | | | | PhD./PathologistT:02/01/ | | | | | | 12:[facility] | | | | | | History:The patient is a | | | | | | 16-year-old male with | | | | | | Crohn | | | | | | | | | | | | status post Remicade. | | | | | | Gross | | | | | | Description:Received are | | | | | | 7 specimens in formalin | | | | | | in containers labeled | | | | | | with the patientname | | | | | | (initials LESTER) and: | | | | | | A: Duodenum: | | | | | | Received are 8 | | | | | | fragments of bose, soft | | | | | | tissue that measure0.8 x | | | | | | 0.8 x 0.2 cm in | | | | | | aggregate. The entire | | | | | | specimen is submitted. | | | | | | B: Gastric | | | | | | antrum: Received are 2 | | | | | | fragments of bose, soft | | | | | | tissue thatmeasure 0.4 x | | | | | | 0.2 x 0.2 cm in | | | | | | aggregate. The entire | | | | | | specimen is submitted. | | | | | | C: | | | | | | Esophagus: Received | | | | | | are 2 fragments of bose, | | | | | | soft tissue that | | | | | | measure0.4 x 0.2 x 0.1 | | | | | | cm in aggregate. The | | | | | | entire specimen is | | | | | | submitted. D: | | | | | | Terminal ileum: | | | | | | Received are 4 | | | | | | fragments of bose, soft | | | | | | tissue thatmeasure 0.4 x | | | | | | 0.4 x 0.2 cm in | | | | | | aggregate. The entire | | | | | | specimen is submitted. | | | | | | E: Right | | | | | | colon: Received are 4 | | | | | | fragments of bose, soft | | | | | | tissue that measure0.5 x | | | | | | 0.4 x 0.1 cm in | | | | | | aggregate. The entire | | | | | | specimen is submitted. | | | | | | F: Transverse | | | | | | colon: Received are 2 | | | | | | fragments of bose, soft | | | | | | tissue thatmeasure 0.3 x | | | | | | 0.3 x 0.2 cm in | | | | | | aggregate. The entire | | | | | | specimen is submitted. | | | | | | G: Left | | | | | | colon: Received are 5 | | | | | | fragments of bose, soft | | | | | | tissue that measure1 x | | | | | | 0.2 x 0.2 cm in | | | | | | aggregate. The entire | | | | | | specimen is submitted. | | | | | | Cassette Index:A: | | | | | | Duodenum:A1B: | | | | | | Gastric antrum:B1C: | | | | | | Esophagus:C1D: | | | | | | Terminal ileum:D1E: | | | | | | Right colon:E1F: | | | | | | Transverse colon:F1G: | | | | | | Left colon:G1EMF:tp | | | | | | My [...] Diagnostician: | | | | | | Iris Prado M.D. | | | | | | Ph.D.PathologistElectron | | | | | | kimmie Signed 02/03/2012 | | | | | | 6:44PM | | | | + + + + + + + + | Specimen | + + | | + + + + + + + | Performing | Address | City/State/Zipcode | Phone Number | | Organization | | | | + + + + + | [facility] | [address] | [place] [address] | | | PATHOLOGY | [address] | | | + + + + + documented in this encounter Visit Diagnoses + + | Diagnosis | + + | Blood in stool | + + documented in this encounter"
--- OUTSIDE RECORDS SUMMARY | ~2019-02-23 | XMS | Encounter Summary ---
Demographics + + + | Address | [address] | | | [place] [address] | + + + | Home Phone [...] + + + | Author | [facility] | + + + | Organization | [facility] | + + + | Address | Unknown | + + + | Phone | Unavailable | + + + Support + + + + + | Name | Relationship | Address | Phone | + + + + + | Debora Resendiz | ECON | [address] | | | | | [place] | | | | | [address] | | + + + + + [...] Team Providers + +------+ + | Care Guest Service Manager Name | Role | Phone [...] + + + + | 01/11/ | Clinical | Pediatric | | Infusion (Remicade) | | 2011 | Support | Hematology Oncology | | | | | Staff | at [facility] | | | | | | [facility] | | | | | | [address] | | | | | | Mailcode: [id number] | | | | | | [place] | | | | | | [place], [place] | | | | | | [address] | | | | | | [phone] | | | +--------+ + + + [...] + + + | Blood Pressure | 121/73 | 01/12/2012 12:10 PM | | | | | PST | | + + + + + | Pulse | 75 | 01/12/2012 12:10 PM | | | | | PST | | + + + + + | Temperature | 36.9 C (98.4 F) | 01/12/2012 12:10 PM | | | | | PST | | + + + + + | Respiratory Rate | 24 | 01/12/2012 9:07 AM | | | | | PST | | + + + + + | Oxygen Saturation | - | - | | + + + + + | Inhaled Oxygen | - | - | | | Concentration | | | | + + + + + | Weight | 65.2 kg (143 lb 11.8 | 01/12/2012 9:07 AM | | | | oz) | PST | | + + + + + | Height | 171.5 cm (5' 7.52") | 01/12/2012 9:07 AM | | | | | PST | | + + + + + | Body Mass Index | 22.17 | 01/12/2012 9:07 AM | | | | | PST | | + + + + + documented in this encounter Progress Notes Nathalie Arzate RN - 01/12/2012 9:14 AM Sabrina came to [facility] today for IV Remicade. A PIV was placed by IVT RN and secured. He was premedicated with Acetaminophen and Loratidi ne prior to the infusion. Jeremias tolerated the infusion without any adverse reactions. Jami killian note doc flowsheet for infusion specifics. Larry Guillen NP came and saw Jeremias salguero e he was in the infusion area. After a 30 minute post infusion observation period, the PIV w as easily removed with the catheter intact and Jeremias was discharged from the clinic in goo d condition with his dad. documented in this encou nter Plan of Treatment Not on filedocumented as of this encounter Procedures + +--------+ + + + | Procedure Name | Priori | Date/Time | Associated Diagnosis | Comments | | | ty | | | | + +--------+ + + + | CBC AND AUTO DIFF | Routin | 01/12/2012 | High risk | Results for this | | | e | 9:03 AM | medications (not | procedure are in the | | | | PST | anticoagulants) | results section. | | | | | long-term use | | | | | | Helicobacter | | | | | | positive gastritis | | | | | | Anorexia Crohn's | | | | | | disease, small and | | | | | | large intestine with | | | | | | granuloma in the | | | | | | colon, severe | | | | | | duodenitis Gastric | | | | | | ulcer Weight loss | | | | | | Diarrhea Heartburn | | | | | | Anemia Abdominal | | | | | | pain, acute, right | | | | | | upper quadrant | | | | | | Nausea | | + +--------+ + + + | MANUAL DIFFERENTIAL | Routin | 01/12/2012 | High risk | Results for this | | | e | 9:03 AM | medications (not | procedure are in the | | | | PST | anticoagulants) | results section. | | | | | long-term use | | | | | | Helicobacter | | | | | | positive gastritis | | | | | | Anorexia Crohn's | | | | | | disease, small and | | | | | | large intestine with | | | | | | granuloma in the | | | | | | colon, severe | | | | | | duodenitis Gastric | | | | | | ulcer Weight loss | | | | | | Diarrhea Heartburn | | | | | | Anemia Abdominal | | | | | | pain, acute, right | | | | | | upper quadrant | | | | | | Nausea | | + +--------+ + + + | CBC, WITH | Routin | 01/12/2012 | High risk | Results for this | | DIFFERENTIAL | e | 9:03 AM | medications (not | procedure are in the | | | | PST | anticoagulants) | results section. | | | | | long-term use | | | | | | Helicobacter | | | | | | positive gastritis | | | | | | Anorexia Crohn's | | | | | | disease, small and | | | | | | large intestine with | | | | | | granuloma in the | | | | | | colon, severe | | | | | | duodenitis Gastric | | | | | | ulcer Weight loss | | | | | | Diarrhea Heartburn | | | | | | Anemia Abdominal | | | | | | pain, acute, right | | | | | | upper quadrant | | | | | | Nausea | | + +--------+ + + + | LIVER SET | Routin | 01/12/2012 | High risk | Results for this | | (AST,ALT,BILI | e | 9:03 AM | medications (not | procedure are in the | | TOTAL,BILI | | PST | anticoagulants) | results section. | | DIRECT,ALK | | | long-term use | | | PHOS,ALB,PROT TOTAL) | | | Helicobacter | | | | | | positive gastritis | | | | | | Anorexia Crohn's | | | | | | disease, small and | | | | | | large intestine with | | | | | | granuloma in the | | | | | | colon, severe | | | | | | duodenitis Gastric | | | | | | ulcer Weight loss | | | | | | Diarrhea Heartburn | | | | | | Anemia Abdominal | | | | | | pain, acute, right | | | | | | upper quadrant | | | | | | Nausea | | + +--------+ + + + | IGG, SERUM | Routin | 01/12/2012 | Crohn's disease, | Results for this | | | e | 9:03 AM | small and large | procedure are in the | | | | PST | intestine with | results section. | | | | | granuloma in the | | | | | | colon, severe | | | | | | duodenitis | | + +--------+ + + + | PROTEIN TOTAL, | Routin | 01/12/2012 | Crohn's disease, | Results for this | | PLASMA | e | 9:03 AM | small and large | procedure are in the | | | | PST | intestine with | results section. | | | | | granuloma in the | | | | | | colon, severe | | | | | | duodenitis | | + +--------+ + + + documented in this encounter Results MANUAL DIFFERENTIAL (01/12/2012 9:03 AM PST) + + + + + + | Component | Value | Ref Range | Performed | Pathologist | | | | | At | Signature | + + + + + + | ANISOCYTOSI | 2+ (25-50cells/HPF) | (none) | [facility] | | | S | | | LABORATORY | | | | | | SERVICES, | | | | | | CORE | | + + + + + + | MICROCYTOSI | 1+ (10-25cells/HPF) | (none) | [facility] | | | S | | | LABORATORY | | | | | | SERVICES, | | | | | | CORE | | + + + + + + | HYPOCHROMIA | 1+ (10-25cells/HPF) | (none) | [facility] | | | | | [...] | + + + + + | [facility] | [address] | [place] [address] | | | SERVICES, CORE | [address] | | | + + + + + CBC AND AUTO DIFF (01/12/2012 9:03 AM PST) + + + + + + | Component | Value | Ref Range | Performed | Pathologist | | | | | At | Signature | + + + + + + | WHITE CELL | 5.8 | 4.9 - 15.5 K/cu | [facility] | | | COUNT | | mm | LABORATORY | | | | | | SERVICES, | | | | | | CORE | | + + + + + + | RED CELL | 5.11 | >4.50 - 5.30 | [facility] | | | [...] + + + + | MCV | 71.5 (L) | 80.0 - 96.0 fL | [facility] | | | | | | LABORATORY | | | | | | SERVICES, | | | | | | CORE | | + + + + + + | MCHC | 32.9 (L) | 33.4 - 35.5 | [facility] | | | | | g/dL | LABORATORY | | | | | | SERVICES, | | | | | | CORE | | + + + + + + | RDW | 17.2 (H) | 11.5 - 15.0 % | [facility] | | | | | | LABORATORY | | | | | | SERVICES, | | | | | | CORE | | + + + + + + | PLATELET | 218 | 150 - 400 K/cu | [facility] | | | COUNT | | mm | LABORATORY | | | | | | SERVICES, | | | | | | CORE | | + + + + + + | NEUTROPHIL | 50 | 41 - 76 % | [facility] | | | % | | | LABORATORY | | | | | | SERVICES, | | | | | | CORE | | + + + + + + | LYMPHOCYTE | 38 | 7 - 41 % | [facility] [...] + | EOS % | 1 | 0 - 6 % | [facility] | | | | | | LABORATORY | | | | | | SERVICES, | | | | | | CORE | | + + + + + + | BASO % | 1 | 0 - 2 % | [facility] | | | | | | LABORATORY | | | | | | SERVICES, | | | | | | CORE | | + + + + + + | NEUTROPHIL | 2.9 | 2.8 - 11.1 K/cu | [facility] | | | # | | mm | LABORATORY | | | | | | SERVICES, | | | | | | CORE | | + + + + + + | LYMPHOCYTE | 2.2 | 0.4 - 3.2 K/cu | [facility] | | | # | | mm | LABORATORY | | | | | | SERVICES, | | | | | | CORE | | + + + + + + | MONOCYTE # | 0.6 | 0.3 - 1.3 K/cu | [facility] | | | | | mm | LABORATORY | | | | | | SERVICES, | | | | | | CORE | | + + + + + + | EOS # | 0.1 | 0.0 - 0.3 K/cu | [facility] | | | | | mm | LABORATORY | | | | | | SERVICES, | | | | | | CORE | | + + + + + + | BASO # | 0.0 | 0.0 - 0.2 K/cu | [facility] | | | | | mm | LABORATORY | | [...] [facility] | [address] | [place] [address] | | | [address] | [address] | | | + + + + + PROTEIN TOTAL, PLASMA (01/12/2012 9:03 AM PST) + +-------+ + + + | Component | Value | Ref Range | Performed | Pathologist | | | | | At | Signature | + +-------+ + + + | TOTAL | 7.1 | 5.9 - 8.2 g/dL | [facility] [...] | + + + + + | [facility] | [address] | [place] [address] | | | [address], [address] | [address] | | | + + + + + IGG, SERUM (01/12/2012 9:03 AM PST) + +-------+ + + + | Component | Value | Ref Range | Performed | Pathologist | | | | | At | Signature | + +-------+ + + + | IGG SERUM | 764 | 700 - 1600 | [facility] | | | | | mg/dL | [facility] | | | | | | [place] | | + +-------+ + + + + + | Specimen | + + | Blood - Blood | + + + + + + + | Performing | Address | City/State/Zipcode | Phone Number | | Organization | | | | + + + + + | [facility] | [address] | [place] [address] | | | [place] | | | | + + + + + LIVER SET (AST,ALT,BILI TOTAL,BILI DIRECT,ALK PHOS,ALB,PROT TOTAL) (01/12/2012 9:03 AM PST ) + +---------+ + + + [...] +---------+ + + + | BILIRUBIN | 0.3 | 0.3 - 1.2 mg/dL | [facility] | | | TOTAL | | | LABORATORY | | | | | | SERVICES, | | | | | | CORE | | + +---------+ + + + | BILIRUBIN | 0.1 | 0.0 - 0.3 mg/dL | [facility] | | | DIRECT | | | LABORATORY | | | | | | SERVICES, | | | | | | CORE | | + +---------+ + + + | ALK PHOS | 175 | 55 - 220 U/L | [facility] | | | | | | LABORATORY | | | | | | SERVICES, | | | | | | CORE | | + +---------+ + + + | AST(SGOT) | 14 (L) | 18 - 36 U/L | [facility] | | | | | | LABORATORY | | | | | | SERVICES, | | | | | | CORE | | + +---------+ + + + | ALT (SGPT) | 16 | 12 - 60 U/L | [facility] | | | | | | LABORATORY | | | | | | SERVICES, | | | | | | CORE | | + +---------+ + + + | TOTAL | | 5.9 - 8.2 g/dL | [facility] [...] | + +---------+ + + + | [facility] | No Hemo | | [...] + + + + + | [facility] | [address] | [place] [address] | | | SERVICES, CORE | [address] | | | + + + + + documented in this encounter Visit Diagnoses + + | Diagnosis | + + | High risk medications (not anticoagulants) long-term use Encounter for long-term | | (current) use of other medications | + + | Helicobacter positive gastritis Helicobacter pylori (H. pylori) | + + | Anorexia | + + | Crohn's disease, small and large intestine with 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, severe | | duodenitis Regional enteritis of small intestine with large intestine | + + | Gastric ulcer Gastric ulcer, unspecified as acute or chronic, without mention of | | hemorrhage, perforation, or obstruction | + + | Weight loss Loss of weight | + + | Diarrhea | + + | Heartburn | + + | Anemia Anemia, unspecified | + + | Abdominal pain, acute, right upper quadrant Abdominal pain, right upper quadrant | + + | Nausea Nausea alone | + + documented in this encounter Administered Medications + +--------+ +--------+------+------+ | Medication Order | MAR | Action | Dose | Rate | Site | | | Action | Date | | | | + +--------+ +--------+------+------+ | acetaminophen (aka TYLENOL) | Given | 01/12/20 | 650 mg | | | | tablet 650 mg 650 mg, oral, | | 12 9:19 | | | | | ONCE, 1 dose, Thu01/12/12 at | | AM PST | | | | | 0945 | | | | | | + +--------+ +--------+------+------+ +---+---+ | | | +---+---+ + +---------+ +--------+--------+---+ | inFLIXimab (aka REMICADE) IV | New Bag | 01/12/20 | 400 mg | mL/hr | | | 400 mg 400 mg, intravenous, | | 12 9:47 | | | | | ONCE, 1 dose, Thu01/12/12 at | | AM PST | | | | | 0945 | | | | | | + +---------+ +--------+--------+---+ +---+---+ | | | +---+---+ + +-------+ +-------+---+---+ | loratadine (aka CLARITIN) | Given | 01/12/20 | 10 mg | | | | tablet 10 mg 10 mg, oral, ONCE, | | 12 9:19 | | | | | 1 dose, 01/12/12 at 0945 | | AM PST | | | | + +-------+ +-------+---+---+ +---+---+ | | | +---+---+ documented in this encounter
--- OUTSIDE RECORDS SUMMARY | ~2019-02-23 | XMS | Encounter Summary ---
Demographics + + + | Address | [address] | | | [place] [address] | + + + | Home Phone [...] + | Debora Resendiz | ECON | [address] | | | | | [place] | | | | | [address] | | + + + + + [...] Team Providers + +------+ + | Care Assorter Name | Role | Phone | + +------+ + | Tracey Galeas MD | PCP | Unavailable | + +------+ + Reason for Visit + + + | Reason | Comments | + + + | Test Results | | + + + | Other | | + + + Encounter Details +--------+ + + + + | Date | Type | Department | Care Team | Description | +--------+ + + + + | 03/11/ | Telephone | Pediatric | Tania Foster MD | Test Results; | | 2011 | | Gastroenterology at | [address] [facility] | | | | | [place] | [place], | | | | | [facility] | [place] [address] | | | | | [address] | [phone] | | | | | Mailcode: CDR | | | | | | [place] | | | | | | [place], [place] | | | | | | [address] | | | | | | [phone] | | | +--------+ + + + [...]
--- OUTSIDE RECORDS SUMMARY | ~2019-02-23 | XMS | Encounter Summary ---
Demographics + + + | Address | [address] | | | [place] [address] | + + + | Home Phone [...] + | Debora Resendiz | ECON | [address] | | | | | [place] | | | | | [address] | | + + + + + [...] Team Providers + +------+ + | Care Choir Teacher Name | Role | Phone | + +------+ + | Tracey Galeas MD | PCP | Unavailable | + +------+ + Encounter Details +--------+------+ + + + | Date | Type | Department | Care Team | Description | +--------+------+ + + + | 12/25/ | Lab | [facility] | | Hematochezia; | | 2011 | | 7th Floor [address] | | Crohn's disease, | | | | [address], | | small and large | | | | [place] [address] | | intestine with | | | | [phone] | | granuloma in the | | | | | | colon, severe | | | | | | duodenitis; | | | | | | Diarrhea; Weight | | | | | | loss; Vitamin B12 | | | | | | deficiency; | | | | | | Encounter [...] as of this encounter Progress Notes Tania Foster MD - 12/26/2011 6:01 PM PDT Quick Note: Please set up IV iron sucrose infusion - need to check dose with pharmacist- after his nex t Remicade infusion. Tx, LM documented in this en counter Plan of Treatment Not on filedocumented as of this encounter Procedures + +--------+ + + + | Procedure Name | Priori | Date/Time | Associated Diagnosis | Comments | | | ty | | | | + +--------+ + + + | CBC AND AUTO DIFF | Routin | 12/26/2011 | Hematochezia | Results for this | | | e | 9:39 AM | Crohn's disease, | procedure are in the | | | | PDT | small and large | results section. | | | | | intestine with | | | | | | granuloma in the | | | | | | colon, severe | | | | | | duodenitis Diarrhea | | | | | | Weight loss | | + +--------+ + + + | MANUAL DIFFERENTIAL | Routin | 12/26/2011 | Hematochezia | Results for this | | | e | 9:39 AM | Crohn's disease, | procedure are in the | | | | PDT | small and large | results section. | | | | | intestine with | | | | | | granuloma in the | | | | | | colon, severe | | | | | | duodenitis Diarrhea | | | | | | Weight loss | | + +--------+ + + + | INR | Routin | 12/26/2011 | Hematochezia | Results for this | | | e | 9:39 AM | Crohn's disease, | procedure are in the | | | | PDT | small and large | results section. | | | | | intestine with | | | | | | granuloma in the | | | | | | colon, severe | | | | | | duodenitis Diarrhea | | | | | | Weight loss | | + +--------+ + + + | CBC, WITH | Routin | 12/26/2011 | Hematochezia | Results for this | | DIFFERENTIAL | e | 9:39 AM | Crohn's disease, | procedure are in the | | | | PDT | small and large | results section. | | | | | intestine with | | | | | | granuloma in the | | | | | | colon, severe | | | | | | duodenitis Diarrhea | | | | | | Weight loss | | + +--------+ + + + | TRANSFERRIN | Routin | 12/26/2011 | Crohn's disease, | Results for this | | | e | 9:39 AM | small and large | procedure are in the | | | | PDT | intestine with | results section. | | | | | granuloma in the | | | | | | colon, severe | | | | | | duodenitis Vitamin | | | | | | B12 deficiency | | | | | | Hematochezia | | + +--------+ + + + | LIVER SET | Routin | 12/26/2011 | Crohn's disease, | Results for this | | (AST,ALT,BILI | e | 9:39 AM | small and large | procedure [...] + | COMPLETE METABOLIC | Routin | 12/26/2011 | Hematochezia | Results for this | | SET | e | 9:39 AM | Crohn's disease, | procedure are in the | | (NA,K,CL,CO2,BUN,CRE | | PDT | small and large | results section. | | AT,GLUC,CA,AST,ALT,B | | | intestine with | | | LAYLA TOTAL,ALK | | | granuloma in the | | | PHOS,ALB,PROT TOTAL) | | | colon, severe | | | | | | duodenitis Diarrhea | | | | | | Weight loss | | + +--------+ + + + | C-REACTIVE PROTEIN | Routin | 12/26/2011 | Hematochezia | Results for this | | | e | 9:39 AM | Crohn's disease, | procedure are in the | | | | PDT | small and large | results section. | | | | | intestine with | | | | | | granuloma in the | | | | | | colon, severe | | | | | | duodenitis Diarrhea | | | | | | Weight loss | | + +--------+ + + + | SEDIMENTATION RATE | Routin | 12/26/2011 | Hematochezia | Results for this | | | e | 9:39 AM | Crohn's disease, | procedure are in the | | | | PDT | small and large | results section. | | | | | intestine with | | | | | | granuloma in the | | | | | | colon, severe | | | | | | duodenitis Diarrhea | | | | | | Weight loss | | + +--------+ + + + | FERRITIN | Routin | 12/26/2011 | Crohn's disease, | Results for this | | | e | 9:39 AM | small and large | procedure are in the | | | | PDT | intestine with | results section. | | | | | granuloma in the | | | | | | colon, severe | | | | | | duodenitis Vitamin | | | | | | B12 deficiency | | | | | | Hematochezia | | + +--------+ + + + | HEMOGLOBIN A1C, | Routin | 12/26/2011 | Crohn's disease, | Results for this | | BLOOD | e | 9:39 AM | small and large | procedure are in the | | | | PDT | intestine with | results section. | | | | | granuloma in the | | | | | | colon, severe | | | | | | duodenitis Vitamin | | | | | | B12 deficiency | | | | | | Hematochezia | | + +--------+ + + + | IRON AND TIBC, SERUM | Routin | 12/26/2011 | Crohn's disease, | Results for this | | | e | 9:39 AM | small and large | procedure are in the | | | | PDT | intestine with | results section. | | | | | granuloma in the | | | | | | colon, severe | | | | | | duodenitis Vitamin | | | | | | B12 deficiency | | | | | | Hematochezia | | + +--------+ + + + documented in this encounter Results MANUAL DIFFERENTIAL (12/26/2011 9:39 AM PDT) + + + + + + | Component | Value | Ref Range | Performed | Pathologist | | | | | At | Signature | + + + + + + | ANISOCYTOSI | 1+ (10-25cells/HPF) | (none) | [facility] [...] | + + + + + | [facility] | [address] | [place] [address] | | | SERVICES, CORE | [address] | | | + + + + + CBC AND AUTO DIFF (12/26/2011 9:39 AM PDT) + + + + + + | Component | Value | Ref Range | Performed | Pathologist | | | | | At | Signature | + + + + + + | WHITE CELL | 4.4 (L) | 4.9 - 15.5 K/cu | [facility] | | | COUNT | | mm | LABORATORY | | | | | | SERVICES, | | | | | | CORE | | + + + + + + | RED CELL | 5.33 (H) | >4.50 - 5.30 | [facility] | | | COUNT | | M/cu mm | LABORATORY | | | | | | SERVICES, | | | | | | CORE | | + + + + + + | HEMOGLOBIN | 12.5 (L) | 13.0 - 16.0 | [facility] | | | | | g/dL | LABORATORY | | | | | | SERVICES, | | | | | | CORE | | + + + + + + | HEMATOCRIT | 38.5 | 37.0 - 49.0 % | [facility] | | | | | | LABORATORY | | | | | | SERVICES, | | | | | | CORE | | + + + + + + | MCV | 72.2 (L) | 80.0 - 96.0 fL | [...] + + + + | PLATELET | 221 | 150 - 400 K/cu | [facility] | | | COUNT | | mm | LABORATORY | | | | | | SERVICES, | | | | | | CORE | | + + + + + + | NEUTROPHIL | 46 | 41 - 76 % | [facility] | | | % | | | LABORATORY | | | | | | SERVICES, | | | | | | CORE | | + + + + + + | LYMPHOCYTE | 41 | 7 - 41 % | [facility] [...] + | EOS % | 2 | 0 - 6 % | [facility] [...] + + + + | NEUTROPHIL | 2.0 (L) | 2.8 - 11.1 K/cu | [facility] | | | # | | mm | LABORATORY | | | | | | SERVICES, | | | | | | CORE | | + + + + + + | LYMPHOCYTE | 1.8 [...] [facility] | [address] | [place] [address] | | | SERVICES, CORE | [address] | | | + + + + + LIVER SET (AST,ALT,BILI TOTAL,BILI DIRECT,ALK PHOS,ALB,PROT TOTAL) (12/26/2011 9:39 AM PDT ) + +---------+ + + + | Component | Value | Ref Range | Performed | Pathologist | | | | | At | Signature | + +---------+ + + + | ALBUMIN, | 4.2 | 3.5 - 4.7 g/dL | [facility] [...] + + + | ALK PHOS | 211 | 55 - 220 U/L | [facility] [...] + + + | ALT (SGPT) | 21 | 12 - 60 U/L | [facility] [...] | + + + + + | [facility] | [address] | [place] [address] | | | SERVICES, CORE | [address] | | | + + + + + HEMOGLOBIN A1C, BLOOD (12/26/2011 9:39 AM PDT) + + + + + + | Component | Value | Ref Range | Performed | Pathologist | | | | | At | Signature | + + + + + + | HEMOGLOBIN | 6.2 (H)Comment: Hgb A1c | <=5.6 % | [facility] - | | | A1C | Interpretive Information | | [facility] - | | | | If you are | | [place] | | | | screening for diabetes: | | | | | | <5.7 | | | | | | Non-diabetic | | | | | | 5.7-6.4 | | | | | | Prediabetes | | | | | | >6.4 | | | | | | Diabetes, if confirmed | | | | | | For monitoring of | | | | | | diabetes control: | | | | | | <7.0 | | | | | | Usual goal of treatment; | | | | | | low risk for | | | | | | complications | | | | | | 7.0-8.0 Some | | | | | | increased risk for | | | | | | long-term complications | | | | | | >8.0 | | | | | | Higher risk of | | | | | | complications; strongly | | | | | | consider | | | | | | | | | | | | intensifying therapy. | | | | + + + + + + + + | Specimen | + + | Blood - Blood | + + + + + + + | Performing | Address | City/State/Zipcode | Phone Number | | Organization | | | | + + + + + | [facility] | [address] | [place] [address] | | | [place] | | | | + + + + + TRANSFERRIN, SERUM (12/26/2011 9:39 AM PDT) + + + + + + | Component | Value | Ref Range | Performed | Pathologist | | | | | At | Signature | + + + + + + | TRANSFERRIN | 359Comment: Performed by | 200 - 400 mg/dL | [facility] | | | , SERUM | [facility],[address] | | [address] | | | | Ileana Collins, [facility] | | PTH - [facility] | | | | [address] | | | | | | [phone] | | | | | | Lyla white, | | | | | | Dinorah SOTO. Director | | | | + + + + + + + + | Specimen | + + | Blood - Blood | + + + + + + + | Performing | Address | City/State/Zipcode | Phone Number | | Organization | | | | + + + + + | [facility] | [address] | [place] [employer], [place] | | | UNIV PTH - [facility] | | [address] | | + + + + + FERRITIN, SERUM (12/26/2011 9:39 AM PDT) + +-------+ + + + | Component | Value | Ref Range | Performed | Pathologist | | | | | At | Signature | + +-------+ + + + | FERRITIN | 4 (L) | 50 - 200 ug/L | [facility] | | | | | | LABORATORY | | | | | | SERVICES, | | | | | | CORE | | + +-------+ + + + + + | Specimen | + + | Blood - Blood | + + + + + | Narrative | Performed At | + + + | <20 ug/L: Consistent with iron deficiency | [facility] | | 21-50 ug/L: Possible Iron deficiency | LABORATORY | | 51-99 ug/L: Iron deficiency | SERVICES, CORE | | unlikely unless inflammation present or patient >65 years of age. | | | | | | 100-200 ug/L: Normal, not consistent with iron deficiency | | | >200 ug/L: If transferrin saturation >45%, consider | | | hemochromatosis. | | + + + + + + + + | Performing | Address | City/State/Zipcode | Phone Number | | Organization | | | | + + + + + | [facility] | [address] | [place] [address] | | | SERVICES, CORE | [address] | | | + + + + + IRON AND TIBC, SERUM (12/26/2011 9:39 AM PDT) + +---------+ + + + | Component | Value | Ref Range | Performed | Pathologist | | | | | At | Signature | + +---------+ + + + | IRON | 41 (L) | 50 - 170 ug/dL | [facility] | | | | | | LABORATORY | | | | | | SERVICES, | | | | | | CORE | | + +---------+ + + + | IRON BIND | 464 (H) | 250 - 400 ug/dL | [facility] | | | CAP | | | LABORATORY | | | | | | SERVICES, | | | | | | CORE | | + +---------+ + + + | % | 9 (L) | 20 - 50 % | [facility] | | | SATURATION | | | LABORATORY | | | TRANSFERRIN | | | SERVICES, | | | , | | | CORE | | + +---------+ + + + + + | Specimen | + + | Blood - Blood | + + + + + + + | Performing | Address | City/State/Zipcode | Phone Number | | Organization | | | | + + + + + | [facility] | [address] | [place] [address] | | | SERVICES, CORE | [address] | | | + + + + + SEDIMENTATION RATE (12/26/2011 9:39 AM PDT) + +-------+ + + + [...] | + + + + + | [facility] | [address] | [place] [address] | | | SERVICES, VENU | [address] | | | + + + + + INR (12/26/2011 9:39 AM PDT) + +-------+ + + + | Component | Value | Ref Range | Performed | Pathologist | | | | | At | Signature | + +-------+ + + + | INR | 1.15 | 0.90 - 1.20 INR | [facility] | | | | | | LABORATORY | | | | | | SERVICES, | | | | | | CORE | | + +-------+ + + + + + | Specimen | + + | Blood - Blood | + + + + + | Narrative | Performed At | + + + | INR Therapeutic ranges for full anticoagulation: INR for | [facility] | | Venous Thromboembolism (2.0 - 3.0) INR INR for | LABORATORY | | most patients with mech. valves (2.5 - 3.5) INR | SERVICES, CORE | + + + + + + + + | Performing | Address | City/State/Zipcode | Phone Number | | Organization | | | | + + + + + | [facility] | [address] | [place] [address] | | | SERVICES, VENU | [address] | | | + + + + + C-REACT PRTN (FOR INFLAMMATION) (12/26/2011 9:39 AM PDT) + +-------+ + + + | Component | Value | Ref Range | Performed | Pathologist | | | | | At | Signature | + +-------+ + + + | C-REACTIVE | <0.5 | <=0.5 mg/dL | [facility] - | | | [...] + | [facility] | [address] | [place] [address] | | | [place] | | | | + + + + + COMPLETE METABOLIC SET (NA,K,CL,CO2,BUN,CREAT,GLUC,CA,AST,ALT,BILI TOTAL,ALK PHOS,ALB,PROT TOTAL) (12/26/2011 9:39 AM PDT) + +---------+ + + + | Component | Value | Ref Range | Performed | Pathologist | | | | | At | Signature | + +---------+ + + + | GLUCOSE, | 76 | 60 - 99 mg/dL | [facility] [...] +---------+ + + + | CREATININE | 0.54 | 0.46 - 0.81 | [facility] | | | PLASMA | | mg/dL | LABORATORY | | | (LAB) | | | SERVICES, | | | | | | CORE | | + +---------+ + + + | SODIUM, | 139 | 136 - 145 | [facility] | | | PLASMA | | mmol/L | LABORATORY | | | (LAB) | | | SERVICES, | | | | | | CORE | | + +---------+ + + + | POTASSIUM, | 4.4 | 3.4 - 5.0 | [facility] | | | PLASMA | | mmol/L | LABORATORY | | | (LAB) | | | SERVICES, | | | | | | CORE | | + +---------+ + + + | CHLORIDE, | 105 | 97 - 108 mmol/L | [facility] | | | PLASMA | | | LABORATORY | | | (LAB) | | | SERVICES, | | | | | | CORE | | + +---------+ + + + | TOTAL CO2, | 26 | 21 - 32 mmol/L | [facility] | | | PLASMA | | | LABORATORY | | | (LAB) | | | SERVICES, | | | | | | CORE | | + +---------+ + + + | CALCIUM, | 9.2 | 8.6 - 10.2 | [facility] | | | PLASMA | | mg/dL | LABORATORY | | | (LAB) | | | SERVICES, | | | | | | CORE | | + +---------+ + + + | BILIRUBIN | | 0.3 - 1.2 mg/dL | [facility] [...] +---------+ + + + | ALBUMIN, | | 3.5 - 4.7 g/dL | [facility] | | | PLASMA | | | LABORATORY | | | (LAB) | | | SERVICES, | | | | | | CORE | | + +---------+ + + + | ALK PHOS | | 55 - 220 U/L | [facility] | | | | | | LABORATORY | | | | | | SERVICES, | | | | | | CORE | | + +---------+ + + + | AST(SGOT) | | 18 - 36 U/L | [facility] | | | | | | LABORATORY | | | | | | SERVICES, | | | | | | CORE | | + +---------+ + + + | ALT (SGPT) | | 12 - 60 U/L | [facility] | | | | | | LABORATORY | | | | | | SERVICES, | | | | | | CORE | | + +---------+ + + + | ANION | | 4 - 11 mmol/L | [facility] [...] + + + + + | [facility] | [address] | [place] [address] | | | SERVICES, CORE | [address] | | | + + + + + documented in this encounter Visit Diagnoses + + | Diagnosis | + + | Hematochezia Blood in stool | + + | Crohn's disease, small and large intestine with 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, severe | | duodenitis Regional enteritis of small intestine with large intestine | + + | Diarrhea | + + | Weight loss Loss of weight | + + | Vitamin B12 deficiency Other B-complex deficiencies | + + | Encounter for therapeutic drug monitoring | + + documented in this encounter"
--- OUTSIDE RECORDS SUMMARY | ~2019-02-23 | XMS | Encounter Summary ---
Demographics + + + | Address | [address] | | | [place] [address] | + + + | Home Phone [...] + | Debora Resendiz | ECON | [address] | | | | | [place] | | | | | [address] | | + + + + + [...] Providers + +------+ + | Care Senior Oracle Applications Developer Name | Role | Phone | + +------+ + | Tracey Galeas MD | PCP | Unavailable | + +------+ + Encounter Details +--------+ + + + + | Date | Type | Department | Care Team | Description | +--------+ + + + + | 06/28/ | MyChart | Pediatric | Tania Foster MD | RE: Results | | 2012 | Encounter | Gastroenterology at | [address] | | | | | [place] | [place] [place], | | | | | [facility] | [place] [address] | | | | | [address] | [phone] | | | | | Mailcode: CDRCP | | | | | | [place] | | | | | | [place], [place] | | | | | | [address] | | | | | | [phone] | | | +--------+ + + + [...]
--- OUTSIDE RECORDS SUMMARY | ~2019-02-23 | XMS | Encounter Summary ---
Demographics + + + | Address | [address] | | | [place] [address] | + + + | Home Phone [...] + | Debora Resendiz | ECON | [address] | | | | | [place] | | | | | [address] | | + + + + + [...] Team Providers + +------+ + | Care Filling Machine Set Up Mechanic Name | Role | Phone | + [...] | +--------+ + + + + | 11/11/ | Telephone | Pediatric | Tania Foster MD | Test Results | | 2014 | | Gastroenterology at | [address] | | | | | [place] | [address] [place], | | | | | [facility] | [place] [address] | | | | | [address] [facility] | [phone] | | | | | Mailcode: [facility] | | | | | | [place] | | | | | | [place], [place] | | | | | | [address] | | | | | | [phone] | | | +--------+ + + + [...]
--- OUTSIDE RECORDS SUMMARY | ~2019-02-23 | XMS | Encounter Summary ---
Demographics + + + | Address | [address] | | | [place] [address] | + + + | Home Phone | | + + + | Preferred Language | Unknown | + + + | Marital Status | Single | + + + | Sikh Affiliation | NON | + + + [...] + | Debora Resendiz | ECON | [address] | | | | | [place] | | | | | [address] | | + + + + + [...] Team Providers + +------+ + | Care Tone Regulator Name | Role | Phone | + [...] 2014 | | Gastroenterology at | [address] | | | | | [place] | [address] [address] [place], | | | | | [facility] | [place] [address] | | | | | [address] [facility] | [phone] | | | | | Mailcode: [place] | | | | | | [place] | | | | | | [place], [place] | | | | | | [address] | | | | | | [phone] | | | +--------+ + + + [...]
--- OUTSIDE RECORDS SUMMARY | ~2019-02-23 | XMS | Encounter Summary ---
Demographics + + + | Address | [address] | | | [place] [address] | + + + | Home Phone [...] + + + | Author | [facility] | + + + | Organization | [facility] | + + + | Address | Unknown | + + + | Phone | Unavailable | + + + Support + + + + + | Name | Relationship | Address | Phone | + + + + + | Debora Resendiz | ECON | [address] | | | | | [place] | | | | | [address] | | + + + + + [...] Team Providers + +------+ + | Care Mold Dresser Name | Role | Phone | + [...] | +--------+ + + + + | 09/27/ | Telephone | Pediatric | Tania Foster MD | Lab Results | | 2011 | | Gastroenterology at | [address] | | | | | [place] | [place], | | | | | [facility] | [place] [address] | | | | | [address] [facility] | [phone] | | | | | Mailcode: [place] | | | | | | [place] | | | | | | [place], [place] | | | | | | [address] | | | | | | [phone] | | | +--------+ + + + [...]
--- OUTSIDE RECORDS SUMMARY | ~2019-02-23 | XMS | Encounter Summary ---
Demographics + + + | Address | [address] | | | [place] [address] | + + + | Home Phone | | + + + | Preferred Language | Unknown | + + + | Marital Status | Single | + + + | Yarsani Affiliation | NON | + + + [...] + | Debora Resendiz | ECON | [address] | | | | | [place] | | | | | [address] | | + + + + + [...] Team Providers + +------+ + | Care Wind Up Worker Name | Role | Phone | [...] | | | | | intestine | [place], [place] | [address] | | | | | ([facility]) | [address] | [facility] | | | | | Procedures | Phone: | Research | | | | | MR | [phone] | Center | | | | | ENTEROGRAPHY | Fax: | [place], [place] | | | | | ABDOMEN AND | [phone] | [address] | | | | | PELVIS WWO | | Phone: | | | | | CONTRAST | | [phone] | | | | | | | Fax: | | | | | | | [phone] | +--------+--------+ + + + + Reason for Visit Diagnostic Testing (Routine) +--------+--------+ + + + + | Status | Reason | Specialty | Diagnoses / | Referred By | Referred To | | | | | Procedures | Contact | Contact | +--------+--------+ + + + + | Closed | | Radiology | Diagnoses | [place], | [facility] | | | | | Crohn's | Tania Landrum MD | [address] | | | | | disease, | [address] | [place] [place] | | | | | small and | [address] | | | | | large | [place] | Mailcode: | | | | | intestine | [place], [place] | [address] | | | | | ([facility]) | [address] | [facility] | | | | | Procedures | Phone: | Research | | | | | MR | [phone] | Center | | | | | ENTEROGRAPHY | Fax: | [place], [place] | | | | | ABDOMEN AND | [phone] | [address] | | | | | PELVIS [facility] | | Phone: | | | | | CONTRAST | | [phone] | | | | | | | Fax: | | | | | | | [phone] | +--------+--------+ + + + + Encounter Details +--------+ + + + + | Date | Type | Department | Care Team | Description | +--------+ + + + + | 03/21/ | Hospital | Diagnostic Imaging | | | | 2011 | Encounter | Services at [facility] | | | | | | [address] | | | | | | [place] Mailcode: | | | | | | [address] [place] | | | | | | [facility] | | | | | | [place], [place] | | | | | | [address] | | | | | | [phone] | | | +--------+ + + + [...] | + +--------+ + + + | MR ENTEROGRAPHY | Routin | 03/21/2011 | Crohn's disease, | Results for this | | ABDOMEN AND PELVIS | e | 10:03 AM | small and large | procedure are in the | | WWO CONTRAST | | PST | intestine (HCC) | results section. | + +--------+ + + + documented in this encounter Results MR ENTEROGRAPHY ABDOMEN AND [...] | | + +---------+ + + | [facility] DEPARTMENT OF | | | | | RADIOLOGY | | | | + +---------+ + + documented in this encounter Visit Diagnoses + + | Diagnosis | + + | Crohn's disease, small and large intestine (HCC) Regional enteritis of small | | intestine with large intestine | + + documented in this encounter Administered Medications + +---------+ +---------+--------+------+ | Medication Order | MAR | Action | Dose | Rate | Site | | | Action | Date | | | | + +---------+ +---------+--------+------+ | glucagon (aka GLUCAGEN) | New Bag | 03/21/19 | 0.25 mg | mL/hr | | | injection 0.25 mg 0.25 mg, | | 12 9:50 | | | | | intravenous, RADIOLOGY ONCE, 2 | | AM PST | | | | | doses, First dose on Thu03/21/11 | | | | | | | at 0900, Last dose on 03/22/11 | | | | | | | at 0900 | | | | | | + +---------+ +---------+--------+------+ +---------+ +---------+--------+---+ | New Bag | 03/21/19 | 0.25 mg | mL/hr | | | | 12 9:15 | | | | | | AM PST | | | | +---------+ +---------+--------+---+ +---+---+ | | | +---+---+ documented in this encounter"
--- OUTSIDE RECORDS SUMMARY | ~2019-02-23 | XMS | Encounter Summary ---
Demographics + + + | Address | [address] | | | [place] [address] | + + + | Home Phone [...] + | Debora Resendiz | ECON | [address] | | | | | [place] | | | | | [address] | | + + + + + [...] Team Providers + +------+ + | Care Pathology Assistant Name | Role | Phone | + +------+ + PCP | Unavailable | + +------+ + Reason for Visit + + + | Reason | Comments | + + + | Medication Question | | + + + Encounter Details +--------+ + + + + | Date | Type | Department | Care Team | Description | +--------+ + + + + | 08/14/ | Telephone | Pediatric | Tania Foster MD | Medication Question | | 2015 | | Gastroenterology at | [address] | | | | | [place] | [place], | | | | | [facility] | [place] [address] | | | | | [address] | [phone] | | | | | Mailcode: [id number] | | | | | | [place] | | | | | | [place], [place] | | | | | | [address] | | | | | | [phone] | | | +--------+ + + + [...]
--- OUTSIDE RECORDS SUMMARY | ~2019-02-23 | XMS | Encounter Summary ---
Demographics + + + | Address | [address] | | | [place] [address] | + + + | Home Phone [...] + | Debora Resendiz | ECON | [address] | | | | | [place] | | | | | [address] | | + + + + + [...] Team Providers + +------+ + | Care Child Care Development Specialist Name | Role | Phone | + +------+ + | Tracey Galeas MD | PCP | Unavailable | + +------+ + Reason for Referral Consult to [place] (Routine) +--------+--------+ + + + + | Status | Reason | Specialty | Diagnoses / | Referred By | Referred To | | | | | Procedures | Contact | Contact | +--------+--------+ + + + + | Closed | | Pediatric | Diagnoses | [place], | Ped Gi Lab | | | | Gastroenterol | Crohn's | Tania Landrum MD | [address] | | | | ogy | disease of | [address] [facility] | Sly [place] | | | | | both small | Anam | Mailcode: | | | | | and large | [address] | [address] | | | | | intestine | [place], [place] | [place]da | | | | | without | [address] | [place], [place] | | | | | complication | Phone: | [address] | | | | | ([facility]) | [phone] | Phone: | | | | | Procedures | Fax: | [phone] | | | | | REQUEST TO | [phone] | Fax: | | | | | SURGERY | | [phone] | | | | | VEHICLE SAFETY INSPECTOR | | | | | | | TX UPPER GI | | | | | | | ENDOSCOPY,BI | | | | | | | OPSY TX | | | | | | | COLONOSCOPY, | | | | | | | BIOPSY | | | | | | | egd/colon w/ | | | | | | | BX | | | +--------+--------+ + + + + Reason for Visit + + + | Reason | Comments | + + + | Pre-Admission | | + + + Encounter Details +--------+ + + + + | Date | Type | Department | Care Team | Description | +--------+ + + + + | 11/17/ | PreAdmit | Pediatric | Tania Foster MD | Pre-Admission | | 2013 | Orders | Gastroenterology at | [address] [facility] | | | | | [place] | [address] [place], | | | | | [facility] | [place] [address] | | | | | [address] | [phone] | | | | | Mailcode: [facility] | | | | | | [place] | | | | | | [place], [place] | | | | | | [address] | | | | | | [phone] | | | +--------+ + + + [...]
--- OUTSIDE RECORDS SUMMARY | ~2019-02-23 | XMS | Encounter Summary ---
Demographics + + + | Address | [address] | | | [place] [address] | + + + | Home Phone | | + + + | Preferred Language | Unknown | + + + | Marital Status | Single | + + + | Yazidism Affiliation | NON | + + + [...] + | Debora Resendiz | ECON | [address] | | | | | [place] | | | | | [address] | | + + + + + [...] Team Providers + +------+ + | Care Cash Person Name | Role | Phone | + +------+ + | Tracey Galeas MD | PCP | Unavailable | + +------+ + Reason for Referral Consultation (Routine) +--------+--------+ + + + + | Status | Reason | Specialty | Diagnoses / | Referred By | Referred To | | | | | Procedures | Contact | Contact | +--------+--------+ + + + + | Closed | | [facility] | Diagnoses | Kristin, | Cdr | | | | Psychology | Diarrhea | Tania Landrum MD | Psychology | | | | | Crohn's | [address] | [address] | | | | | disease, | Anam | St | | | | | small and | Cristian Yepez | Mailcode: | | | | | large | [facility] [place] | [facility] | | | | | intestine, | [address] | [place], [place] | | | | | other | Phone: | [address] | | | | | complication | [phone] | Phone: | | | | | Procedures | Fax: | [phone] | | | | | CONSULT TO | [phone] | Fax: | | | | | [facility] | | [phone] | | | | | PSYCHOLOGY | | | | | | | PSYCH | | | | | | | Mixon | | | +--------+--------+ + + + [...] | Specialty | Pediatric | Diagnoses | [place], | Ped Gastro | | | Services | Gastroenterol | Regional | Tracey Chiu MD | [address] | | | Required | ogy | enteritis of | [place] | [address] | | | | | small | PERMANENTE | Mailcode: | | | | | intestine | [place] | [facility] | | | | | with large | [address] | [address] | | | | | intestine | [address] | [place], [place] | | | | | ([facility]) | [address] | [address] | | | | | Encounter | [place], | Phone: | | | | | for | [place] [address] | [phone] | | | | | long-term | | Fax: | | | | | (current) | | [phone] | | | | | use of other | | | | | | | medications | | | +--------+ + + + + + Encounter Details +--------+---------+ + + + | Date | Type | Department | Care Team | Description | +--------+---------+ + + + | 03/24/ | Office | Pediatric | Tania Foster MD | Diarrhea (Primary | | 2015 | Visit | Gastroenterology at | [address] [facility] | Dx); Crohn's | | | | [place] | Cristian [facility], | disease, small and | | | | [facility] | [place] [address] | large intestine, | | | | [address] | [phone] | other complication | | | | Mailcode: [facility] | | ([facility]) | | | | [place] | | | | | | [place], [place] | | | | | | [address] | | | | | | [phone] | | | +--------+---------+ + + + [...] + + + | Blood Pressure | 131/83 | 03/24/2014 9:31 AM | | | | | PST | | + + + + + | Pulse | 63 | 03/24/2014 9:31 AM | | | | | PST [...] + + + + | Weight | 82.8 kg (182 lb 8.7 | 03/24/2014 9:31 AM | | | | oz) | PST | | + + + + + | Height | 176.5 cm (5' 9.49") | 03/24/2014 9:31 AM | | | | | PST | | + + + + + | Body Mass Index | 26.58 | 03/24/2014 9:31 AM | | | | | PST | | + + + + + documented in this encounter Patient Instructions Patient Instructions Tania Foster MD - 03/24/2014 9:48 AM PSTIt was nice to see you in t he clinic today! Our plan: 1. Be sure you are signed up for Perminova if you have a computer online. Our commercial front load operator staff will give you the weblink, and a code to enter. Answer a few questions, and it is good to go. 2. Make appt with iggy Xie psychologist at [facility] Follow-up: Please schedule your next GI visit in: 4 months What is the plan if the studies are normal for my child? Please make a clinic appointment with me to discuss the plan if studies are normal, and if recommended diet changes or other therapy do not resolve the symptoms. Education: For information on GI and nutrition topics, please check out excellent online websites such as: GIKiSelexagen Therapeutics.org - For constipation info, watch the video "The Poo InYou." ClaytonStress.com.[employer] KidPrecursor Energetics.org DoCopperfasten.com/GI FAAN.org for food allergy info IFFGD for functional gastrointestinal disorders For Liver Diseases: AASLD [employer] offer excellent information. For Crohn's or ulcerative colitis information, CCFA.org is a great website. Great YOUTUBE ON IBD MEDS: http://www.I Like My Waitressd.com/en/understanding-ibd/wibvopumohmxe-jxh-sbthz-bzb-ogqbbqbd-aq-ibd-t herapies.html Results of tests: Results of laboratory tests, biopsies or Xrays will be sent to you by Vusay. If you do not have internet access, results will be sent by mail. Questions: If you have non-urgent questions, please send through Vusay. For urgent questions, please call the [facility] GI office at [phone]. documented in this encounter Progress Notes Tania Foster MD - 03/24/2014 9:39 AM PST PEDIATRIC GASTROENTEROLOGY IBD CONSULTATION for ONGOING MANAGEMENT Jeremias Adames is an 18 y.o. male, who is referred by Tracey Galeas to Pediatric GI Cli vivi accompanied by mother, grandmother, for follow-up consultation for chief complaint of Cr ohn's disease. Jeremias Adames has the following medical problems: [...] pylori gastritis Past IBD history: Diagnosed with Crohn's Feb, [...] colon. D/C'd Imuran July,, - decreased WBC 2011 D: Terminal ileum, biopsy: - Chronic ileitis with minimal activity and focal granuloma s - Negative for dysplasia E: Right colon, biopsy: - Chronic colitis, inactive - Negative fo r granulomas and dysplasia F: Transverse colon, biopsy: - Colonic mucosa with no diagnostic abnormality - Negative for granulomas and dysplasia G: Left colon, biopsy: - Chronic colitis , inactive - Negative for granulomas and dysplasia Case seen by: Rc Singh/Student Qing Prado M.D., PhD./Pathologist :[place] October 18, first dose of Humira and stopped Remicade. Medications that have failed to control the disease activity in past or for which there was an adverse reaction: thiopsurines Current medicines include: Current Outpatient Prescriptions Medication Sig adalimumab (HUMIRA) 40 mg/0.8 mL Subcutaneous Kit 2 injections (80 mg) sub Q on October 18, 2012 as instructed, then 40 mg injection every 2 wk thereafter. Please take a Zyrtec 10 mg tab and 500 mg of Tylenol po 30 min before injecting medicine. Indications: CROHN'S DISEASE [START ON 03/26/2014] buPROPion SR 150 mg oral tablet extended release Take by mouth. cholecalciferol, Vitamin D3, 1,000 unit oral tablet Take 2 tablets by mouth once daily. Indications: VITAMIN D DEFICIENCY mesalamine (LIALDA) 1.2 g oral tablet,delayed release (DR/EC) Take 2 tablets by mouth o nce daily. Indications: CROHN'S DISEASE MULTIVITAMIN ORAL Take by mouth. Take 1 tablet by mouth Daily. omeprazole 20 mg oral capsule,delayed release(DR/EC) Take 2 capsules by mouth once em y in the morning. peg-electrolyte 236-22.74-6.74 gram oral recon soln Mix GOLYtely and take 8 oz every 20 -30 minutes until full gallon is gone. No current facility-administered medications for this visit. Changes in Medications since we last saw patient? no Interval history update: Patient reports today that 2stools are 2/day and formed in consistency. Blood or mucus in the stool? no Urgency? no Abdominal pain? no Nausea? no. Vomiting? no. Energy level is ok. Appetite is good. New medical/surgical issues since last visit? no ROS: Aphthous ulcers? no Any joint or eye pain? no Any cough or nasal discharge recently? no Any known clotting disorder? n Any recent fever ? no Any skin problems or rash? no Has weight been stable? yes GI aspects of ROS noted in the Interval History section above. Cardiovascular: Negative Genitourinary:Negative Neurologic: Negative Social history: Lives with grandmother [place] [facility] Larissa had alcohol poisoning -> ED visit. Missing school? no Medication compliance estimate good Nutrition: Taking multivitamin? no Calcium intake adequate? no No Known Allergies Ht 1.765 m (5' 9.49") (54%, Z = 0.09), Wt 82.8 kg (182 lb 8.7 oz) (89%, Z = 1.23), BP 131/8 3, Pulse 63, BMI 26.58 kg/(m^2). 90%ile (Z=1.30) based on CDC 2-20 Years BMI-for-age data. [...] signficant cervical or supraclavicular adenopathy Psychiatric- affect slightly flat Patient reports a pain level of 0 today. ___ No action required ___ See assessment and plan Lab results from last GI visit: Lab on 01/13/2014 Component Date Value Range VITAMIN D 25 HYDROXY (ng/mL) 01/17/2014 21.7 20-80 GLUCOSE, PLASMA (LAB) (mg/dL) 01/13/2014 82 60-99 BUN, PLASMA (LAB) (mg/dL) 01/13/2014 9 6-20 CREATININE PLASMA (LAB) (mg/dL) 01/13/2014 0.75 0.46-0.81 SODIUM, PLASMA (LAB) (mmol/L) 01/13/2014 139 136-145 POTASSIUM, PLASMA (LAB) (mmol/L) 01/13/2014 4.1 3.4-5.0 CHLORIDE, PLASMA (LAB) (mmol/L) 01/13/2014 106 97-108 TOTAL CO2, PLASMA (LAB) (mmol/L) 01/13/2014 28 21-32 CALCIUM, PLASMA (LAB) (mg/dL) 01/13/2014 8.8 8.6-10.2 BILIRUBIN TOTAL (mg/dL) 01/13/2014 0.4 0.3-1.2 TOTAL PROTEIN, PLASMA (LAB) (g/dL) 01/13/2014 7.4 6.4-8.2 ALBUMIN, PLASMA (LAB) (g/dL) 01/13/2014 4.0 3.5-4.7 ALK PHOS (U/L) 01/13/2014 111 55-220 AST(SGOT) (U/L) 01/13/2014 12* 15-41 ALT (SGPT) (U/L) 01/13/2014 17 12-60 ANION GAP(ALB CORRECTED) (mmol/L) 01/13/2014 5 4-11 POTASSIUM CMNT 01/13/2014 No Hemo - BILI T CMNT 01/13/2014 No Hemo - AST CMNT 01/13/2014 No Hemo - ANION GAP (mmol/L) 01/13/2014 5 - SEDIMENTATION RATE (mm/hr) 01/13/2014 3 0-15 WHITE CELL COUNT (K/cu mm) 01/13/2014 5.38 4.90-15.50 RED CELL COUNT (M/cu mm) 01/13/2014 5.49* 4.50-5.30 HEMOGLOBIN (g/dL) 01/13/2014 14.3 13.0-16.0 HEMATOCRIT (%) 01/13/2014 44.0 37.0-49.0 MCV (fL) 01/13/2014 80.1 80.0-96.0 MCHC (g/dL) 01/13/2014 32.5 - RDW SD (fL) 01/13/2014 36.5 35.1-46.3 PLATELET COUNT (K/cu mm) 01/13/2014 206 150-400 MPV (fL) 01/13/2014 10.0 9.7-12.3 NRBC% (%) 01/13/2014 0.0 0.0-0.3 NRBC# (K/cu mm) 01/13/2014 0.00 0.00-0.02 NEUTROPHIL % (%) 01/13/2014 50.5 41.0-76.0 LYMPHOCYTE % (%) 01/13/2014 37.4 7.0-41.0 MONOCYTE % (%) 01/13/2014 8.6 3.0-13.0 EOS % (%) 01/13/2014 2.4 0.0-6.0 BASO % (%) 01/13/2014 0.9 0.0-2.0 IMMATURE GRANULOCYTE% (%) 01/13/2014 0.2 0.0-0.6 NEUTROPHIL # (K/cu mm) 01/13/2014 2.72* 2.80-11.10 LYMPHOCYTE # (K/cu mm) 01/13/2014 2.01 0.40-3.20 MONOCYTE # (K/cu mm) 01/13/2014 0.46 0.30-1.30 EOS # (K/cu mm) 01/13/2014 0.13 0.00-0.30 BASO # (K/cu mm) 01/13/2014 0.05 0.00-0.20 IMMATURE GRANULOCYTE# (K/cu mm) 01/13/2014 0.01 0.00-0.03 Assessment & Plan : This is [...] inflammatory bowel is under good control. The Crohn's disease activity is quiet. Of more concern is patient's psychosocial issues, living with grandmother out in [place]. He plans to attend college in [employer]. Has had issues with substance abuse. I believe he w ould benefit from consult from Lonnie Mixon..Referral placed. Medications changed today: none Nutrition support: We recommend a multivitamin, folic acid, and calcium supplement. It is important for patients with Crohn's to have adequate vitamin D and calcium intake. Health care maintenance: Reinforced Vaccinations. Patient should have flu shot every fall. No live virus vaccinations for our patients on immunosuppressive medications We encourage HPV vaccination in age appropriate children Psychosocial or economic challenges affecting patient's medical care delivery: lives with G randmother Co-morbidities that would affect sedation risk: none An after visit summary was given to the family. In this 30 minute clinic visit I spent at least 50% of the time in fyvn-lm-arvi patient edu cation, medical care delivery and in care coordination. TANIA FOSTER MD [facility] [address] Mailcode: [place] [address] Lab on 03/24/2014 Component Date Value Range [...] IMMATURE GRANULOCYTE# (K/cu mm) 03/24/2014 0.06* 0.00-0.03 documented in this enco unter Plan of Treatment Not on filedocumented as of this encounter Results SEDIMENTATION RATE (03/24/2014 10:20 AM PST) + +-------+ + + + [...] | + + + + + | [facility] | [address] | [place] [address] | | | SERVICES, CORE | [address] | | | + + + + + COMPLETE METABOLIC SET (NA,K,CL,CO2,BUN,CREAT,GLUC,CA,AST,ALT,BILI TOTAL,ALK PHOS,ALB,PROT TOTAL) (03/24/2014 10:20 AM PST) + +---------+ + + + | Component | Value | Ref Range | Performed | Pathologist | | | | | At | Signature | + +---------+ + + + | GLUCOSE, | 92 | 60 - 99 mg/dL | [facility] [...] +---------+ + + + | CREATININE | 0.72 | 0.46 - 0.81 | [facility] | [...] + + + | TOTAL CO2, | 28 | 21 - 32 mmol/L | [facility] | | | PLASMA | | | LABORATORY | | | (LAB) | | | SERVICES, | | | | | | CORE | | + +---------+ + + + | CALCIUM, | 8.9 | 8.6 - 10.2 | [facility] | [...] +---------+ + + + | TOTAL | 7.4 | 6.4 - 8.2 g/dL | [facility] [...] + + + | ALK PHOS | 97 | 55 - 220 U/L | [facility] [...] + + + | ALT (SGPT) | 26 | 12 - 60 U/L | [facility] [...] + + + | ANION GAP | 4 | mmol/L | [facility] | | | [...] + + + + + | [facility] | [address] | [place] [address] | | | SERVICES, CORE | [address] | | | + + + + + documented in this encounter Visit Diagnoses + + | Diagnosis | + + | Diarrhea - Primary | + + | Crohn's disease, small and large intestine, other complication | + + documented in this encounter
--- OUTSIDE RECORDS SUMMARY | ~2019-02-23 | XMS | Encounter Summary ---
Demographics + + + | Address | [address] | | | [place] [address] | + + + | Home Phone | | + + + | Preferred Language | Unknown | + + + | Marital Status | Single | + + + | Restorationism Affiliation | NON | + + + [...] + | Debora Resendiz | ECON | [address] | | | | | [place] | | | | | [address] | | + + + + + [...] Team Providers + +------+ + | Care Workforce Services Representative Name | Role | Phone | [...] | | | Children's | [address] [place], | BIOPSY x7 | | | | [facility] Admitting | [place] [address] | | | | | Desk Once | [phone] | | | | | admitted, go to the | | | | | | 8th floor Surgical | | | | | | Desk Located at the | | | | | | [facility] [address] | | | | | | [address] [place], | | | | | | [place] [address] | | | +--------+---------+ + + + [...] IV Solumedrol . Will be monitored with [facility] nurse visit. FEN: vitamin D level low [...] MD Discharging Attending: Julee Quintana MD PCP: [facility] [address] [place] [address] documented in this enc ounter Discharge Instructions Instructions Marisela Casey RN - 06/18/2011 Welcome to Pediatric Endoscopy! [...] ities tomorrow. Call the Pediatric GI provider automation control integrator for urgent matters If you see any of these signs, call the GI office at [phone] (option 3) during regular business hours, or the GI provider automation control integrator after hours for the following: Increased pain [...] take usual medicines unless told otherwise by [facility] doctor. How to Reach Your GI Provider: Mon-Fri from 8:00-4:30, call GI Office at [phone]. After hours, weekends, & holidays, call [facility] Hypo Splasher at [phone]; ask to edwards ve the Pediatric GI provider automation control integrator paged for urgent patient issues as described above. Results: Biopsy results may take 10 days to come back; we will contact you when we receive the res ults. Assure that our check-in desk has your contact numbers. Please sign up for [email or web address] in order to receive results faster, if [...] General Appearance: Active, alert, NAD Head: Mild Boyce face Eyes,Ears, Nose, Throat: No icterus, MMM [...] for Vit D deficiency. MARIUSZ JULIAN MD [facility] [address] [facility] [address] [facility] DEPARTMENT: [id number] PED GASTRO [facility] Place of Service: [address]357 - IP Date of Service: 06/22/2011 CSN: [id number] Suggested Level of Care: 75258 - Subsequent -1 HPI, 1 ROS, 2-4 [...] Crohn's disease does not respond to steroids. [place] better after Infliximab. - Low Vit D level. RECOMMENDATIONS/PLAN: - Continue current care. - If continues to do well, OK to d/c to home from GI point view. - GI office will schedule the following Infliximab infusions. - Vit D 50,000 weekly x 3 months for Vit D deficiency. MARIUSZ JULIAN MD [facility] [address] [facility] [address] [facility] [address] [facility] [address] [facility] DEPARTMENT: [id number]- PED GASTRO [facility] Place of Service: [address] - Date of Service: 06/21/2011 CSN: [id number] Suggested Level of Care: 50739 - Subsequent -2 HPI, 2 ROS, 1 [...] t herapy. EVAN RUBIN MD Pediatric Gastroenterology [facility] DEPARTMENT: [id number] PED GASTRO [facility] Place of Service: 512[address] - Date of Service: 06/20/2011 CSN: [id number] Suggested Level of Care: 92027 - Subsequent -1 HPI, 1 ROS, 2-4 [...] appetite when having a fl are. Drinks Kincaid Instant Breakfast + 1% milk at home, [...] month, wt up since . Estimated needs: 9517-3778 calories (DRI), 1.5-2.0 g/kg pro, 2200 ml fluid PLAN: 1. Encourage po, low fiber diet. Sending chocolate CIB + 2% milk BID. 2. Will provide low fiber diet education 3. Rec check 25-OH vitamin D level 4. RD following Mesha Neri RD, LD Pediatric Dietitian [facility] [phone] Pager #: [phone] Dudley Oliva MD - 06/20/2011 8:09 AM PDT [facility] Attending addendum Hosp day # 1 [...] | | | | al | | ([facility]) Diarrhea | | | | | | Nausea alone | | + +--------+ + + + | [facility] COLONOSCOPY, | Routin | 06/19/2011 | | Results for this | | FLEX, W/BIOPSY | e | 7:54 AM | | procedure are in the | | | | PDT | | results section. | + +--------+ + + + | [facility] UPPER GI | Routin | 06/19/2011 | [...] | | | Identification pause performed per [facility] protocol. Patient placed in | | | [...] | | to family. TANIA FOSTER MD [address] | | | -83/[place] [address] cc: Tracey | | | MD Gudelia [facility] DEPARTMENT: [id number]- PED GASTRO [facility] | | | Place of Service: - OP Date of Service: 01/30/2012 MEDICAL | | | RECORD NUMBER [id number] CSN: [id number] Suggested Level of Care: | | | [address] - Colonoscopy w/Biopsy and [address]50 EGD with biopsies | | + + [...] Description: Identification pause performed per | | [facility] protocol.Patient placed in left lateral decubitus position.After [...] and given to family.TANIA FOSTER MDWASU [address] | | [id number], [place] [id number]: [facility]: | | [id number]- PED GASTRO [facility] Place of Service: - OPDate of Service: | | 01/30/2012MEDICAL RECORD NUMBER [id number]: [id number] Level of Care: [address] - | | Colonoscopy w/Biopsy and 78529 EGD with biopsies | |Gastric Antrum: 2 [...] | | | |TANIA FOSTER MD | |[facility] [address] | |[address] | |[id number] | |[place] [address] | |[phone] | | | |cc: Tracey Galeas MD | | | |[facility] DEPARTMENT: [id number]- [facility] | |Place of Service: [address] - | |Date of Service: 01/30/2012 | | | |CSN: [id number] | |Suggested Level of Care: 25986 - Colonoscopy w/Biopsy and 10715 EGD with biopsies | + + HEPATITIS [...] [facility] | [facility] | | [place] [place] [address] | REGIONAL | | [place] [address] | LABORATORY | + + + + + + + + | Performing | Address | City/State/Zipcode | Phone Number | | Organization | | | | + + + + + | [facility] | [address] | [place] [address] | | | LABORATORY | | | [...] + + + + + | [facility] | [address] | [place] [address] | | | PATHOLOGY | [address] [...] + + + + + | [facility] | [address] | [place] [address] | | | PATHOLOGY | [address] [...] by | | | | | | [employer], | | | | | | | | | | | | [address] | | | | | | Dennis [facility] [address] | | | | | | [phone] | | | | | | | | | | | | [email or web address], | | | | | | Lyla [...] [facility] | [address] | [place], [place] | | | [facility] | | [address] | | + + + + + [...] DEPARTMENT OF | [address] | [place] [address] | | | PATHOLOGY | [address] | | | + + + + + C-REACT PRTN (FOR INFLAMMATION) (06/19/2011 1:11 PM PDT) + +---------+ + + + | Component | Value | Ref Range | Performed | Pathologist | | | | | At | Signature | + +---------+ + + + | C-REACTIVE | 5.6 (H) | <0.6 mg/dl | [facility] | | | PROTEIN | | | REGIONAL | | | | | | LABORATORY | | + +---------+ + + + + + | Specimen | + + | Blood - Blood | + + + + + | Narrative | Performed At | + + + | [facility]) | [facility] | | [facility] [place] [address] [facility] | [facility] | | [place] [address] | LABORATORY | + + + + + + + + | Performing | Address | City/State/Zipcode | Phone Number | | Organization | | | | + + + + + | [facility] | [address] [facility] | [place] [address] | | | LABORATORY | | | [...] | + + + + + | [facility] DEPARTMENT OF | [address] | [place] [address] | | | PATHOLOGY | [address] [...] + + | [facility] DEPARTMENT OF | [address] | [place] [address] | | | PATHOLOGY | [address] | | | + + + + + [facility] UPPER GI ENDOSCOPY,BIOPSY (06/19/2011 7:54 AM PDT)LA COLONOSCOPY, FLEX, W/BIOPSY (06/18 7:54 AM PDT)ORDERS [...] + + + + + | [facility] | [address] | [place] [address] | | | PATHOLOGY | [address] [...]
--- OUTSIDE RECORDS SUMMARY | ~2019-02-23 | XMS | Encounter Summary ---
Demographics + + + | Address | [address] | | | [place] [address] | + + + | Home Phone [...] + | Debora Resendiz | ECON | [address] | | | | | [place] | | | | | [address] | | + + + + + [...] Team Providers + +------+ + | Care Talent Acquisition Lead Name | Role | Phone | + +------+ + | Tracey Galeas MD | PCP | Unavailable | + +------+ + Encounter Details +--------+ + + + + | Date | Type | Department | Care Team | Description | +--------+ + + + + | 10/23/ | MyChart | Pediatric | Tania Foster MD | RE: Tests | | 2011 | Encounter | Gastroenterology at | [address] | | | | | [place] | Herminia Yepez [place], | | | | | [facility] | [place] [address] | | | | | [address] | [phone] | | | | | Mailcode: CDRCP | | | | | | [place] | | | | | | [place], [place] | | | | | | [address] | | | | | | [phone] | | | +--------+ + + + [...]
--- OUTSIDE RECORDS SUMMARY | ~2019-02-23 | XMS | Encounter Summary ---
Demographics + + + | Address | [address] | | | [place] [address] | + + + | Home Phone [...] + + + | Author | [facility] | + + + | Organization | [facility] | + + + | Address | Unknown | + + + | Phone | Unavailable | + + + Support + + + + + | Name | Relationship | Address | Phone | + + + + + | Debora Resendiz | ECON | [address] | | | | | [place] | | | | | [address] | | + + + + + [...] Team Providers + +------+ + | Care Aquaculturist Name | Role | Phone | + [...] | | | | | | | [address] | | | | | | | [place], | | | | | | | [place] [address] | | | | | | | Phone: | | | | | | | [phone] | | | | | | | Fax: | | | | | | | [phone] | +--------+--------+ + + + + Encounter Details +--------+---------+ + + + | Date | Type | Department | Care Team | Description | +--------+---------+ + + + | 05/29/ | Office | [facility] | Carlo Negro | 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 male here to [...] Negro MD, PhD, CALVIN, Professor, Retina Service, [facility] [place], 05/29/2008 documented in thi s encounter Plan [...]
--- OUTSIDE RECORDS SUMMARY | ~2019-02-23 | XMS | Encounter Summary ---
Demographics + + + | Address | [address] | | | [place] [address] | + + + | Home Phone [...] + | Debora Resendiz | ECON | [address] | | | | | [place] | | | | | [address] | | + + + + + [...] Team Providers + +------+ + | Care Dumbwaiter Operator Name | Role | Phone | + +------+ + | Tracey Galeas MD | PCP | Unavailable | + +------+ + Encounter Details +--------+------+ + + + | Date | Type | Department | Care Team | Description | +--------+------+ + + + | 12/25/ | Lab | Lab Center at [facility] | | Hematochezia; | | 2011 | | 7th Floor [address] | | Crohn's disease, | | | | [address] [place], | | small and large | | | | [place] [address] | | intestine with | | | | [phone] | | granuloma in the | | [...] | + + + + + | [facility] | [address] | [place] [address] | | | SERVICES, CORE | PARK [...] [facility] | [address] | [place] [address] | | | SERVICES, CORE | PARK [...] | + + + + + | [facility] | [address] | [place] [address] | | | SERVICES, CORE | CRISTIAN [...] | | If you are | | [place] | | | | screening for diabetes: [...] + | [facility] - | [address] | [place] [address] | | | [place] | | | | + + + [...] [facility] | | | , SERUM | [facility],[address] | | REG UNIV | | | | Ileana Collins, [facility] | | PTH - INTFC | | | | [address] | | | | | | [phone]. | | | | | | Lyla [...] [facility] REG | [address] | [place], [place] | | | UNIV PTH - INTFC | | [address] | | + + + + + [...] | + + + + + | [facility] | [address] | [place] [address] | | | SERVICES, CORE | CRISTIAN [...] + + | [facility] | [address] [facility] | [place] [address] | | | SERVICES, CORE | PARK [...] | + + + + + | [facility] | [address] | [place] [address] | | | SERVICES, VENU | CRISTIAN [...] | + + + + + | [facility] | [address] | [place] [address] | | | SERVICES, VENU | CRISTIAN [...] + | [facility] - | [address] | [place] [address] | | | [place] | | | [...] + + + + + | [facility] | [address] | [place] [address] | | | SERVICES, CORE | PARK [...]
--- OUTSIDE RECORDS SUMMARY | ~2019-02-23 | XMS | Encounter Summary ---
Demographics + + + | Address | [address] | | | [place] [address] | + + + | Home Phone [...] + | Debora Resendiz | ECON | [address] | | | | | [place] | | | | | [address] | | + + + + + [...] Team Providers + +------+ + | Care Rn Cvor Name | Role | Phone | + +------+ + | Tracey Galeas MD | PCP | Unavailable | + +------+ + Encounter Details +--------+--------+ + + + | Date | Type | Department | Care Team | Description | +--------+--------+ + + + | 03/05/ | Refill | Pediatric | Tania Foster MD | | | 2011 | | Gastroenterology at | [address] | | | | | [place] | Herminia Yepez [facility] | | | | | [place] | [place] [address] | | | | | [address] | [phone] | | | | | Mailcode: SUKUMAR | | | | | | [place] | | | | | | [place], [place] | | | | | | [address] | | | | | | [phone] | | | +--------+--------+ + + + [...]
--- OUTSIDE RECORDS SUMMARY | ~2019-02-23 | XMS | Encounter Summary ---
Demographics + + + | Address | [address] | | | [place] [address] | + + + | Home Phone | | + + + | Preferred Language | Unknown | + + + | Marital Status | Single | + + + | Scientologist Affiliation | NON | + + + [...] + | Debora Resendiz | ECON | [address] | | | | | [place] | | | | | [address] | | + + + + + [...] Team Providers + +------+ + | Care Breast Worker Name | Role | Phone | [...] Closed | | Pediatric | Diagnoses | [place], | Ped [place] | | | | Gastroenterol | Regional | Tania Landrum MD | Hem Onc Dch | | | | ogy | enteritis of | [address] | [address] | | | | | small | [address] | | | | | intestine | Herminia Yepez | Mailcode: | | | | | with large | [place], [place] | DCH10C | | | | | intestine | [address] | [place] | | | | | ([facility]) | Phone: | [place], [place] | | | | | Anorexia | [phone] | [address] | | | | | Pre-procedur | Fax: | Phone: | | | | | e Diagnoses | [phone] | [phone] | | | | | | | Fax: | | | | | Procedures | | [phone] | | | | | [place] | | | | | | | INFLIXIMAB | | | | | | | INJECTION, | | | | | | | 10 MG [place] | | | | | | | THR/PRPH/DX | | | | | | | IV INF,IN | | | | | | | [place] | | | | | | | [...] | 2011 | Visit | Oncology at [facility] [address] | PNP [address] | medications (not | | | | [address] | [address] [place], [place] | anticoagulants) | | | | Mailcode: DCH10C | [address] | long-term use | | | | [place] | [phone] | (Primary Dx) | | | | [place], [place] | | | | | | [address] | | | | | | [phone] | | | +--------+---------+ + + + [...] Lab results from last GI visit: Clinical Straight Tooth Gear Generator Operator on 11/21/2011 Component Date Value Range WHITE [...] prevent weight loss. 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 Health care maintenance Rubber Washer exam every 2 years. Done this spring Flu shot reminder: Not yet--will try to get in soon Note: Immunosuppressed patients on Remicade, Humira, Cimzia, chronic steroids, methotrexate , imuran or 6-MP should not have live virus vaccinations , including the nasal flu mist, MMR or Varicella vaccination. 5. Next recommended follow-up in GI clinic: 8 weeks for Remicade [facility] HEMATOLOGY ONCOLOGY [address] [place] [address] Mailcode: Dch10c [place] [phone] documented in t his encounter Plan of Treatment Not on filedocumented as of this encounter Visit Diagnoses + + | Diagnosis | + + | High risk medications (not anticoagulants) long-term use - Primary Encounter for | | long-term (current) use of other medications | + + documented in this encounter
--- OUTSIDE RECORDS SUMMARY | ~2019-02-23 | XMS | Encounter Summary ---
Demographics + + + | Address | [address] | | | [place] [address] | + + + | Home Phone [...] Author + + + | Author | [facility] | + + + | Organization | [facility] | + + + | Address | Unknown | + + + | Phone | Unavailable | + + + Support + + + + + | Name | Relationship | Address | Phone | + + + + + | Debora Resendiz | ECON | [address] | | | | | [place] | | | | | [address] | | + + + + + [...] Team Providers + +------+ + | Care Laboratory Geneticist Name | Role | Phone | + +------+ + | Tracey Galeas MD | PCP | Unavailable | + +------+ + Encounter Details +--------+------+ + + + | Date | Type | Department | Care Team | Description | +--------+------+ + + + | 03/24/ | Lab | Lab Center at [facility] | | Crohn's disease, | | 2014 | | 7th Floor [address] | | small and large | | | | [address] [place], | | intestine, other | | | | [place] [address] | | complication (HCC) | | | | [phone] | | | +--------+------+ + + + Social History [...] CBC AND AUTO DIFF | Routin | 03/24/2014 | Crohn's disease, | Results for this | | | e | 10:20 AM | small and large | procedure are in the | | | | PST | intestine, other | results section. | | | | | complication (HCC) | | + +--------+ + + + | CBC, WITH | Routin | 03/24/2014 | Crohn's disease, | Results for this | | DIFFERENTIAL | e | 10:20 AM | small and large | procedure are in the | | | | PST | intestine, other | results section. | | | | | complication (HCC) | | + +--------+ + + + | COMPLETE METABOLIC | Routin | 03/24/2014 | Crohn's disease, | Results for this | | SET | e | 10:20 AM | small and large | procedure are in the | | (NA,K,CL,CO2,BUN,CRE | | PST | intestine, other | results section. | | AT,GLUC,CA,AST,ALT,B | | | complication (HCC) | | | LAYLA TOTAL,ALK | | | | | | PHOS,ALB,PROT TOTAL) | | | | | + +--------+ + + + | SEDIMENTATION RATE | Routin | 03/24/2014 | Crohn's disease, | Results for this | | | e | 10:20 AM | small and large | procedure are in the | | | | PST | intestine, other | results section. | | | | | complication (HCC) | | + +--------+ + + + documented in this encounter Results CBC AND AUTO DIFF (03/24/2014 10:20 AM PST) + + + + + + | Component | Value | Ref Range | Performed | Pathologist | | | | | At | Signature | + + + + + + | WHITE CELL | 6.58 | 4.90 - 15.50 | [facility] | | | COUNT | | K/cu mm | LABORATORY | | | | | | SERVICES, | | | | | | CORE | | + + + + + + | RED CELL | 5.71 (H) | 4.50 - 5.30 | [facility] | | | COUNT | | M/cu mm | LABORATORY | | | | | | SERVICES, | | | | | | CORE | | + + + + + + | HEMOGLOBIN | 14.7 | 13.0 - 16.0 | [facility] | | | | | g/dL | LABORATORY | | | | | | SERVICES, | | | | | | CORE | | + + + + + + | HEMATOCRIT | 44.8 | 37.0 - 49.0 % | [facility] | | | | | | LABORATORY | | | | | | SERVICES, | | | | | | CORE | | + + + + + + | MCV | 78.5 (L) | 80.0 - 96.0 fL | [facility] | | | | | | LABORATORY | | | | | | SERVICES, | | | | | | CORE | | + + + + + + | MCHC | 32.8 | 33.0 - 35.5 | [facility] | | | | | g/dL | LABORATORY | | | | | | SERVICES, | | | | | | CORE | | + + + + + + | RDW SD | 38.3 | 35.1 - 46.3 fL | [facility] | | | | | | LABORATORY | | | | | | SERVICES, | | | | | | CORE | | + + + + + + | PLATELET | 224 | 150 - 400 K/cu | [facility] | | | COUNT | | mm | LABORATORY | | | | | | SERVICES, | | | | | | CORE | | + + + + + + | MPV | 9.4 (L) | 9.7 - 12.3 fL | [facility] [...] + + + + | NEUTROPHIL | 51.3 | 41.0 - 76.0 % | [facility] | | | % | | | LABORATORY | | | | | | SERVICES, | | | | | | CORE | | + + + + + + | LYMPHOCYTE | 35.3 | 7.0 - 41.0 % | [facility] | | | % | | | LABORATORY | | | | | | SERVICES, | | | | | | CORE | | + + + + + + | MONOCYTE % | 8.7 | 3.0 - 13.0 % | [facility] | | | | | | LABORATORY | | | | | | SERVICES, | | | | | | CORE | | + + + + + + | EOS % | 2.6 | 0.0 - 6.0 % | [facility] | | | | | | LABORATORY | | | | | | SERVICES, | | | | | | CORE | | + + + + + + | BASO % | 1.2 | 0.0 - 2.0 % | [facility] | | | | | | LABORATORY | | | | | | SERVICES, | | | | | | CORE | | + + + + + + | IG% | 0.9 (H)Comment: Immature | 0.0 - 0.6 % | [facility] | | | | Granulocytes (IG) | | LABORATORY | | | | include metamyelocytes, | | SERVICES, | | | | myelocytes and | | CORE | | | | promyelocytes. Bands | | | | | | are not included in the | | | | | | IG count. Bands are | | | | | | included in the | | | | | | neutrophil count. | | | | + + + + + + | NEUTROPHIL | 3.38 | 2.80 - 11.10 | [facility] | | | # | | K/cu mm | LABORATORY | | | | | | SERVICES, | | | | | | CORE | | + + + + + + | LYMPHOCYTE | 2.32 | 0.40 - 3.20 | [facility] | | | # | | K/cu mm | LABORATORY | | | | | | SERVICES, | | | | | | CORE | | + + + + + + | MONOCYTE # | 0.57 | 0.30 - 1.30 | [facility] | | | | | K/cu mm | LABORATORY | | | | | | SERVICES, | | | | | | CORE | | + + + + + + | EOS # | 0.17 | 0.00 - 0.30 | [facility] | | | | | K/cu mm | LABORATORY | | | | | | SERVICES, | | | | | | CORE | | + + + + + + | BASO # | 0.08 | 0.00 - 0.20 | [facility] | | | | | K/cu mm | LABORATORY | | | | | | SERVICES, | | | | | | CORE | | + + + + + + | IG# | 0.06 (H) | 0.00 - 0.03 | [facility] | [...] At | + + + | Immature Granulocytes (IG) include metamyelocytes, myelocytes | [facility] | | and promyelocytes. Bands are not included in the IG count. Bands are | LABORATORY | | included in the neutrophil count. | SERVICES, CORE | + + + + + + + + | Performing | Address | City/State/Zipcode | Phone Number | | Organization | | | | + + + + + | [facility] | [address] | [place] [address] | | | SERVICES, CORE | [address] | | | + + + + + SEDIMENTATION RATE (03/24/2014 10:20 AM PST) + [...] | + + + + + | [facility] | [address] | [place] [address] | | | SERVICES, CORE | CRISTIAN [...] + + + + + | [facility] | [address] | [place] [address] | | | SERVICES, VENU | CRISTIAN MARTINEZ | | | + + + + + documented in this encounter Visit Diagnoses + + | Diagnosis | + + | Crohn's disease, small and large intestine, other complication | + + documented in this encounter"
--- OUTSIDE RECORDS SUMMARY | ~2019-02-23 | XMS | Encounter Summary ---
Demographics + + + | Address | [address] | | | [place] [address] | + + + | Home Phone [...] + | Debora Resendiz | ECON | [address] | | | | | [place] | | | | | [address] | | + + + + + [...] Team Providers + +------+ + | Care Branch Maker Name | Role | Phone | + +------+ + | Tracey Galeas MD | PCP | Unavailable | + +------+ + Encounter Details +--------+ + + + + | Date | Type | Department | Care Team | Description | +--------+ + + + + | 07/31/ | MyChart | Pediatric | Ce Williamson MD | [facility] | | 2011 | Encounter | Gastroenterology at | | Law (jose [employer]) | | | | [place] | | | | | | [facility] | | | | | | [address] [facility] | | | | | | Mailcode: CDRCP | | | | | | [place] | | | | | | [place], [place] | | | | | | [address] | | | | | | [phone] | | | +--------+ + + + [...]
--- OUTSIDE RECORDS SUMMARY | ~2019-02-23 | XMS | Encounter Summary ---
Demographics + + + | Address | [address] | | | [place] [address] | + + + | Home Phone [...] + | Debora Resendiz | ECON | [address] | | | | | [place] | | | | | [address] | | + + + + + [...] Providers + +------+ + | Care Clinical Research Assistant Name | Role | Phone | [...] | | | [place] | Herminia Yepez [facility] | | | | | [facility] | [place] [address] | | | | | [address] | [phone] | | | | | Mailcode: SUKUMAR | | | | | | [place] | | | | | | [place], [place] | | | | | | [address] | | | | | | [phone] | | | +--------+--------+ + + + [...]
--- OUTSIDE RECORDS SUMMARY | ~2019-02-23 | XMS | Encounter Summary ---
Demographics + + + | Address | [address] | | | [place] [address] | + + + | Home Phone [...] + | Debora Resendiz | ECON | [address] | | | | | [place] | | | | | [address] | | + + + + + [...] Team Providers + +------+ + | Care Service Desk Agent Name | Role | Phone | + +------+ + | Tracey Galeas MD | PCP | Unavailable | + +------+ + Encounter Details +--------+ + + + + | Date | Type | Department | Care Team | Description | +--------+ + + + + | 03/14/ | Telephone | Pediatric | Tania Foster MD | | | 2011 | | Gastroenterology at | [address] | | | | | [place] | Herminia Yepez [facility] | | | | | [facility] | [place] [address] | | | | | [address] | [phone] | | | | | Mailcode: [facility] | | | | | | [place] | | | | | | [place], [place] | | | | | | [address] | | | | | | [phone] | | | +--------+ + + + [...]
--- OUTSIDE RECORDS SUMMARY | ~2019-02-23 | XMS | Encounter Summary ---
Demographics + + + | Address | [address] | | | [place] [address] | + + + | Home Phone [...] + | Debora Resendiz | ECON | [address] | | | | | [place] | | | | | [address] | | + + + + + [...] Team Providers + +------+ + | Care Systems Designer Name | Role | Phone | + +------+ + | Tracye Galeas MD | PCP | Unavailable | + +------+ + Encounter Details +--------+ + + + + | Date | Type | Department | Care Team | Description | +--------+ + + + + | 06/24/ | MyChart | Pediatric | Tania Foster MD | RE: Insurance | | 2011 | Encounter | Gastroenterology at | [address] | paperwork | | | | [place] | Herminia Yepez [facility] | | | | | [facility] | [place] [address] | | | | | [address] [place] | [phone] | | | | | Mailcode: CDRCP | | | | | | [place] | | | | | | [place], [place] | | | | | | [address] | | | | | | [phone] | | | +--------+ + + + [...]
--- OUTSIDE RECORDS SUMMARY | ~2019-02-23 | XMS | Encounter Summary ---
Demographics + + + | Address | [address] | | | [place] [address] | + + + | Home Phone | | + + + | Preferred Language | Unknown | + + + | Marital Status | Single | + + + | Taoism Affiliation | NON | + + + | Race | White | + + + | Ethnic Group | Not or | + + + Author + + + | Author | [facility] | + + + | Organization | [facility] | + + + | Address | Unknown | + + + | Phone | Unavailable | + + + Support + + + + + | Name | Relationship | Address | Phone | + + + + + | Debora Resendiz | ECON | [address] | | | | | [place] | | | | | [address] | | + + + + + [...] Team Providers + +------+ + | Care Communications Field Technician Name | Role | Phone | + +------+ + | Tracey Galeas MD | PCP | Unavailable | + +------+ + Reason for Visit +--------+ + | Reason | Comments | +--------+ + | Other | fax lab order, stomach pain | +--------+ + Encounter Details +--------+ + + + + | Date | Type | Department | Care Team | Description | +--------+ + + + + | 06/22/ | Telephone | Pediatric | Tania Foster MD | Other (fax lab | | 2012 | | Gastroenterology at | [address] [facility] | order, stomach pain) | | | | [place] | Herminia Yepez [place], | | | | | [facility] | [place] [address] | | | | | [address] | [phone] | | | | | Mailcode: CDRCP | | | | | | [place] | | | | | | [place], [place] | | | | | | [address] | | | | | | [phone] | | | +--------+ + + + [...]
--- OUTSIDE RECORDS SUMMARY | ~2019-02-23 | XMS | Encounter Summary ---
Demographics + + + | Address | [address] | | | [place] [address] | + + + | Home Phone [...] Author + + + | Author | [facility] | + + + | Organization | [facility] | + + + | Address | Unknown | + + + | Phone | Unavailable | + + + Support + + + + + | Name | Relationship | Address | Phone | + + + + + | Debora Resendiz | ECON | [address] | | | | | [place] | | | | | [address] | | + + + + + [...] Team Providers + +------+ + | Care Mental Health Director Name | Role | Phone | [...] Closed | | Pediatric | Diagnoses | [place], | Ped [place] | | | | Gastroenterol | Regional | Tania Landrum MD | Hem Onc Dch | | | | ogy | enteritis of | [address] | [address] | | | | | small | [address] | | | | | intestine | Herminia Yepez | Mailcode: | | | | | with large | [place], [place] | DCH10C | | | | | intestine | [address] | [place] | | | | | ([facility]) | Phone: | [place], [place] | | | | | Anorexia | [phone] | [address] | | | | | Pre-procedur | Fax: | Phone: | | | | | e Diagnoses | [phone] | [phone] | | | | | | | Fax: | | | | | Procedures | | [phone] | | | | | [place] | | | | | | | INFLIXIMAB | | | | | | | INJECTION, | | | | | | | 10 MG IN | | | | | | | THR/PRPH/DX | | | | | | | IV INF,IN | | | | | | | IN | | | | | | | [...] | 2011 | Visit | Oncology at [facility] [address] | [address] | medications (not | | | | [facility] [address] | [place], | anticoagulants) | | | | Mailcode: DCH10C | [place] [address] | long-term use | | | | [address] | [phone] | (Primary Dx) | | | | [place], [place] | | | | | | [address] | | | | | | [phone] | | | +--------+---------+ + + + [...] Lab results from last GI visit: Clinical General Scrap Worker on 09/26/2011 Component Date Value Range WHITE [...] [email or web address] and [email or web address] 4. Health care maintenance Executive Search Consultant exam every 2 years. Flu shot reminder: [...] a reminder. [facility] HEMATOLOGY ONCOLOGY [address] [place] [address] Mailcode: Dch10c [place] [phone] documented in t his encounter Plan of Treatment Not on filedocumented as of this encounter Visit Diagnoses + + | Diagnosis | + + | High risk medications (not anticoagulants) long-term use - Primary Encounter for | | long-term (current) use of other medications | + + documented in this encounter
--- OUTSIDE RECORDS SUMMARY | ~2019-02-23 | XMS | Encounter Summary ---
Demographics + + + | Address | [address] | | | [place] [address] | + + + | Home Phone [...] + | Debora Resendiz | ECON | [address] | | | | | [place] | | | | | [address] | | + + + + + [...] Team Providers + +------+ + | Care Apartment Leasing Agent Name | Role | Phone | [...] | | | Children's | [address] [place], | pathology | | | | [facility] Admitting | [place] [address] | | | | | Desk Once | [phone] | | | | | admitted, go to the | | | | | | 8th floor Surgical | | | | | | Desk Located at the | | | | | | [address] | | | | | | [address] [place], | | | | | | [place] [address] | | | +--------+---------+ + + + [...] usual medicines unless told otherwise by [facility] doctor. How to Reach Your Doctor: Mon-Fri from 8:00-4:30, call [facility] at [phone] After hours, weekends, and holidays, call [facility] at [phone]. Ask to have your doctor paged. Return [...] | + + + + + | [facility] | [address] | [place] [address] | | | [place] | | | | + + + [...] + + + + + | [facility] | [address] | [place] [address] | | | PATHOLOGY | [address] | | | + + + + + documented in this encounter Visit Diagnoses + + | Diagnosis | + + | Blood in stool | + + documented in this encounter"
--- OUTSIDE RECORDS SUMMARY | ~2019-02-23 | XMS | Encounter Summary ---
Demographics + + + | Address | [address] | | | [place] [address] | + + + | Home Phone | | + + + | Preferred Language | Unknown | + + + | Marital Status | Single | + + + | Church Affiliation | NON | + + + [...] + | Debora Resendiz | ECON | [address] | | | | | [place] | | | | | [address] | | + + + + + [...] Team Providers + +------+ + | Care Finishing Machine Operator Name | Role | Phone | + +------+ + | Tracey Galeas MD | PCP | Unavailable | + +------+ + Reason for Visit + + + | Reason | Comments | + + + | Care Coordination | orders for stool studies | + + + Encounter Details +--------+ + + + + | Date | Type | Department | Care Team | Description | +--------+ + + + + | 11/17/ | Telephone | Pediatric | aTnia Foster MD | Care Coordination | | 2013 | | Gastroenterology at | [address] [facility] | (orders for stool | | | | [place] | Herminia Yepez [place], | studies) | | | | [facility] | [place] [address] | | | | | [address] | [phone] | | | | | Mailcode: CDRCP | | | | | | [place] | | | | | | [place], [place] | | | | | | [address] | | | | | | [phone] | | | +--------+ + + + [...]
--- OUTSIDE RECORDS SUMMARY | ~2019-02-23 | XMS | Encounter Summary ---
Demographics + + + | Address | [address] | | | [place] [address] | + + + | Home Phone [...] + | Debora Resendiz | ECON | [address] | | | | | [place] | | | | | [address] | | + + + + + [...] Team Providers + +------+ + | Care Medical Coding Manager Name | Role | Phone | [...] 2013 | | Gastroenterology at | [address] [facility] | | | | | [place] | Herminia Yepez [place], | | | | | [facility] | [place] [address] | | | | | [address] [facility] | [phone] | | | | | Mailcode: CDRCP | | | | | | [place] | | | | | | [place], [place] | | | | | | [address] | | | | | | [phone] | | | +--------+ + + + [...]
--- OUTSIDE RECORDS SUMMARY | ~2019-02-23 | XMS | Encounter Summary ---
Demographics + + + | Address | [address] | | | [place] [address] | + + + | Home Phone | | + + + | Preferred Language | Unknown | + + + | Marital Status | Single | + + + | Temple Affiliation | NON | + + + | Race | White | + + + | Ethnic Group | Not or | + + + Author + + + | Author | [facility] | + + + | Organization | [facility] | + + + | Address | Unknown | + + + | Phone | Unavailable | + + + Support + + + + + | Name | Relationship | Address | Phone | + + + + + | eDbora Resendiz | ECON | [address] | | | | | [place] | | | | | [address] | | + + + + + [...] Team Providers + +------+ + | Care Registered Radiologic Technologist Name | Role | Phone | [...] | | | [place] | [address] Ye[address] [place], | | | | | [facility] | [place] [address] | | | | | [address] [facility] | [phone] | | | | | Mailcode: SUKUMAR | | | | | | [place] | | | | | | [place], [place] | | | | | | [address] | | | | | | [phone] | | | +--------+ + + + [...]
--- OUTSIDE RECORDS SUMMARY | ~2019-02-23 | XMS | Encounter Summary ---
Demographics + + + | Address | [address] | | | [place] [address] | + + + | Home Phone | | + + + | Preferred Language | Unknown | + + + | Marital Status | Single | + + + | Advent Affiliation | NON | + + + [...] + | Debora Resendiz | ECON | [address] | | | | | [place] | | | | | [address] | | + + + + + [...] Team Providers + +------+ + | Care Cheese Tester Name | Role | Phone | + +------+ + | Tracey Galeas MD | PCP | Unavailable | + +------+ + Reason for Visit +--------+ + | Reason | Comments | +--------+ + | Other | Prednisone dose/taper | +--------+ + Encounter Details +--------+ + + + + | Date | Type | Department | Care Team | Description | +--------+ + + + + | 05/14/ | Telephone | Pediatric | Tania Foster MD | Other (Prednisone | | 2011 | | Gastroenterology at | [address] [facility] | dose/taper) | | | | [place] | Herminia Yepez [place], | | | | | [facility] | [place] [address] | | | | | [address] | [phone] | | | | | Mailcode: [facility] | | | | | | [place] | | | | | | [place], [place] | | | | | | [address] | | | | | | [phone] | | | +--------+ + + + [...]
--- OUTSIDE RECORDS SUMMARY | ~2019-02-23 | XMS | Encounter Summary ---
Demographics + + + | Address | [address] | | | [place] [address] | + + + | Home Phone [...] + | Debora Resendiz | ECON | [address] | | | | | [place] | | | | | [address] | | + + + + + [...] Team Providers + +------+ + | Care Toilet Attendant Name | Role | Phone | + +------+ + | Tracey Galeas MD | PCP | Unavailable | + +------+ + Reason for Visit + + + | Reason | Comments | + + + | Infusion | Remicade | + + + Encounter Details +--------+---------+ + + + | Date | Type | Department | Care Team | Description | +--------+---------+ + + + | 07/03/ | Office | Pediatric | | Crohn's disease, | | 2011 | Visit | Hematology Oncology | | small and large | | | | at [facility] | | intestine with | | | [facility] | | granuloma in the | | | | [address] | | colon, severe | | | | Mailcode: [id number] | | duodenitis (Primary | | | | [place] | | Dx); Encounter for | | | | [place], [place] | | therapeutic drug | | | | [address] | | monitoring | | | | [phone] | | | +--------+---------+ + + + [...] + + + | Blood Pressure | 125/79 | 07/04/2011 2:10 PM | | | | | PDT | | + + + + + | Pulse | 87 | 07/04/2011 2:10 PM | | | | | PDT | | + + + + + | Temperature | 36.7 C (98.1 F) | 07/04/2011 2:10 PM | | | | | PDT | | + + + + + | Respiratory Rate | 16 | 07/04/2011 10:06 AM | | | | | PDT | | + + + + + | Oxygen Saturation | - | - | | + + + + + | Inhaled Oxygen | - | - | | | Concentration | | | | + + + + + | Weight | 56.9 kg (125 lb 7.1 | 07/04/2011 10:06 AM | | | | oz) | PDT | | + + + + + | Height | 167 cm (5' 5.75") | 07/04/2011 10:06 AM | | | | | PDT | | + + + + + | Body Mass Index | 20.4 | 07/04/2011 10:06 AM | | | | | PDT | | + + + + + documented in this encounter Progress Notes Carol Andrade RN - 07/04/2011 5:34 PM PDTPt here for second dose of Remicade. Pt appear s well and interacts appropriately for age. PIV placed and labs drawn by IVT RN. Pt premedic ated with Claritin and Tylenol. Remicade checked at bedside and hung per protocol. Pt tolera olga infusion without issue. Pt examined by Zion Guillen NP during infusion. Once infusio n complete, PIV flushed with NS. After 30 minute observation period, PIV removed with cathet er intact. Pt then d/c'd home in good condition with father. Pt will return to clinic in 4 w eeks for Remicade infusion. documented in this encounter Plan of Treatment Not on filedocumented as of this encounter Procedures + +--------+ + + + | Procedure Name | Priori | Date/Time | Associated Diagnosis | Comments | | | ty | | | | + +--------+ + + + | DIFFERENTIAL | Routin | 07/04/2011 | | Results for this | | | e | 9:04 AM | | procedure are in the | | | | PDT | | results section. | + +--------+ + + + | CBC, WITH | Routin | 07/04/2011 | Crohn's disease, | Results for this | | DIFFERENTIAL | e | 9:04 AM | small and large | procedure [...] + | LIVER SET | Routin | 07/04/2011 | Crohn's disease, | Results for this | | (AST,ALT,BILI | e | 9:04 AM | small and large | procedure [...] + + | ORDERS OTHER | | 07/04/2011 | | Results for this | | | | 12:00 AM | | procedure are in the | | | | PDT | | results section. | + +--------+ + + + documented in this encounter Results DIFFERENTIAL (07/04/2011 9:04 AM PDT) + +---------+ + + + | Component | Value | Ref Range | Performed | Pathologist | | | | | At | Signature | + +---------+ + + + | NEUTROPHIL | 42 | 41 - 76 % | [facility] | | | % | | | DEPARTMENT | | | | | | OF | | | | | | PATHOLOGY | | + +---------+ + + + | LYMPHOCYTE | 46 (H) | 7 - 41 % | [...] +---------+ + + + | NEUTROPHIL | 2.7 (L) | 2.8 - 11.1 K/cu | [facility] | | | # | | mm | DEPARTMENT | | | | | | OF | | | | | | PATHOLOGY | | + +---------+ + + + | LYMPHOCYTE | 2.9 | 0.4 - 3.2 K/cu | [facility] [...] + + + | BASO # | 0.1 | <0.3 | [facility] | | | [...] | + + + + + | [facility] | [address] [facility] | [place] [address] | | | PATHOLOGY | [address] | | | + + + + + LIVER SET (AST,ALT,BILI TOTAL,BILI DIRECT,ALK PHOS,ALB,PROT TOTAL) (07/04/2011 9:04 AM PDT ) + +--------+ + + + | Component | Value | Ref Range | Performed | Pathologist | | | | | At | Signature | + +--------+ + + + | ALBUMIN, | 3.5 | 3.5 - 4.7 g/dL | [facility] | | | PLASMA | | | DEPARTMENT | | | (LAB) | | | OF | | | | | | PATHOLOGY | | + +--------+ + + + | BILIRUBIN | 0.5 | 0.3 - 1.2 mg/dL | [facility] | | | TOTAL | | | DEPARTMENT | | | | | | OF | | | | | | PATHOLOGY | | + +--------+ + + + | BILIRUBIN | 0.1 | <0.4 mg/dL | [facility] | | | DIRECT | | | DEPARTMENT | | | | | | OF | | | | | | PATHOLOGY | | + +--------+ + + + | ALK PHOS | 82 (L) | 110 - 440 U/L | [facility] | | | | | | DEPARTMENT | | | | | | OF | | | | | | PATHOLOGY | | + +--------+ + + + | AST(SGOT) | 17 (L) | 18 - 36 U/L | [facility] | | | | | | DEPARTMENT | | | | | | OF | | | | | | PATHOLOGY | | + +--------+ + + + | ALT (SGPT) | 15 | 13 - 48 U/L | [facility] | | | | | | DEPARTMENT | | | | | | OF | | | | | | PATHOLOGY | | + +--------+ + + + | TOTAL | 6.1 | 5.9 - 8.2 g/dL | [facility] [...] DEPARTMENT OF | [address] | [place] [address] | | | PATHOLOGY | [address] | | | + + + + + CBC, WITH DIFFERENTIAL (07/04/2011 9:04 AM PDT) + + + + + + | Component | Value | Ref Range | Performed | Pathologist | | | | | At | Signature | + + + + + + | WHITE CELL | 6.4 | 4.9 - 15.5 K/cu | [facility] | | | COUNT | | mm | DEPARTMENT | | | | | | OF | | | | | | PATHOLOGY | | + + + + + + | RED CELL | 4.77 | 4.50 - 5.30 | [facility] | | | COUNT | | M/cu mm | DEPARTMENT | | | | | | OF | | | | | | PATHOLOGY | | + + + + + + | HEMOGLOBIN | 11.3 (L) | 13.0 - 16.0 | [facility] | | | | | g/dL | DEPARTMENT | | | | | | OF | | | | | | PATHOLOGY | | + + + + + + | HEMATOCRIT | 34.9 (L) | 37.0 - 49.0 % | [facility] | | | | | | DEPARTMENT | | | | | | OF | | | | | | PATHOLOGY | | + + + + + + | MCV | 73.2 (L) | 80.0 - 96.0 fL | [facility] | | | | | | DEPARTMENT | | | | | | OF | | | | | | PATHOLOGY | | + + + + + + | MCHC | 32.2 (L) | 33.4 - 35.5 | [facility] | | | | | g/dL | DEPARTMENT | | | | | | OF | | | | | | PATHOLOGY | | + + + + + + | RDW | 18.8 (H) | 11.5 - 15.0 % | [facility] | | | | | | DEPARTMENT | | | | | | OF | | | | | | PATHOLOGY | | + + + + + + | PLATELET | 276 | 150 - 400 K/cu | [facility] [...] | + + + + + | [facility] | [address] | [place] [address] | | | PATHOLOGY | [address] | | | + + + + + ORDERS OTHER (07/04/2011 12:00 AM PDT) + + + | Narrative | Performed At | + + + | | | + + + + + | Transcriptions | + + | Lei Crane - 07/08/2011 10:57 AM PDT | + + documented in this encounter Visit Diagnoses + + | Diagnosis | + + | Crohn's disease, small and large intestine with 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, severe | | duodenitis - Primary Regional enteritis of small intestine with large intestine | + + | Encounter for therapeutic drug monitoring | + + documented in this encounter Administered Medications + +--------+ +--------+------+------+ | Medication Order | MAR | Action | Dose | Rate | Site | | | Action | Date | | | | + +--------+ +--------+------+------+ | acetaminophen (aka TYLENOL) | Given | 07/04/19 | 650 mg | | | | tablet 650 mg 650 mg, oral, | | 12 10:30 | | | | | ONCE, 1 dose, Thu07/04/11 at 0900 | | AM PDT | | | | + +--------+ +--------+------+------+ +---+---+ | | | +---+---+ + +---------+ +--------+--------+---+ | inFLIXimab (aka REMICADE) IV | New Bag | 07/04/19 | 300 mg | mL/hr | | | 300 mg 300 mg, intravenous, | | 12 11:00 | | | | | ONCE, 1 dose, 07/04/11 at 0900 | | AM PDT | | | | + +---------+ +--------+--------+---+ +---+---+ | | | +---+---+ + +-------+ +-------+---+---+ | loratadine (aka CLARITIN) | Given | 07/04/19 | 10 mg | | | | tablet 10 mg 10 mg, oral, ONCE, | | 12 10:30 | | | | | 1 dose, 07/04/11 at 0900 | | AM PDT | | | | + +-------+ +-------+---+---+ +---+---+ | | | +---+---+ documented in this encounter
--- OUTSIDE RECORDS SUMMARY | ~2019-02-23 | XMS | Encounter Summary ---
Demographics + + + | Address | [address] | | | [place] [address] | + + + | Home Phone | | + + + | Preferred Language | Unknown | + + + | Marital Status | Single | + + + | Shinto Affiliation | NON | + + + [...] + | Debora Resendiz | ECON | [address] | | | | | [place] | | | | | [address] | | + + + + + [...] Providers + +------+ + | Care Senior Clinical Study Manager Name | Role | Phone | + +------+ + | Tracey Galeas MD | PCP | Unavailable | + +------+ + Encounter Details +--------+ + + + + | Date | Type | Department | Care Team | Description | +--------+ + + + + | 10/29/ | MyChart | Pediatric | Tania Foster MD | RE: Letter | | 2011 | Encounter | Gastroenterology at | [address] | | | | | [place] | Herminia Yepez [place], | | | | | [facility] | [place] [address] | | | | | [address] | [phone] | | | | | Mailcode: CDRCP | | | | | | [place] | | | | | | [place], [place] | | | | | | [address] | | | | | | [phone] | | | +--------+ + + + [...]
--- OUTSIDE RECORDS SUMMARY | ~2019-02-23 | XMS | Encounter Summary ---
Demographics + + + | Address | [address] | | | [place] [address] | + + + | Home Phone [...] + + + | Author | [facility] | + + + | Organization | [facility] | + + + | Address | Unknown | + + + | Phone | Unavailable | + + + Support + + + + + | Name | Relationship | Address | Phone | + + + + + | Debora Resendiz | ECON | [address] | | | | | [place] | | | | | [address] | | + + + + + [...] Team Providers + +------+ + | Care Engagement Engineer Name | Role | Phone | [...] [facility] | | | | | [facility] | [place] [address] | | | | | [address] | [phone] | | | | | Mailcode: SU[facility]AR | | | | | | [place] | | | | | | [place], [place] | | | | | | [address] | | | | | | [phone] | | | +--------+ + + + [...] + + + | [facility] | [address] [facility] [facility] | [place] [address] | | | LABORATORIES | [address] | [...] + | [facility] - | [address] | [place] [address] | | | [place] | | | [...] | + + + + + | [facility] - | [address] | [place] [address] | | | [place] | | | | + + + + + documented in this encounter Visit Diagnoses + + | Diagnosis | + + | Crohn's disease, small and large intestine (HCC) - Primary Regional enteritis of | | small intestine with large intestine | + + documented in this encounter"
--- OUTSIDE RECORDS SUMMARY | ~2019-02-23 | XMS | Encounter Summary ---
Demographics + + + | Address | [address] | | | [place] [address] | + + + | Home Phone | | + + + | Preferred Language | Unknown | + + + | Marital Status | Single | + + + | Druze Affiliation | NON | + + + [...] + | Debora Resendiz | ECON | [address] | | | | | [place] | | | | | [address] | | + + + + + [...] Team Providers + +------+ + | Care Wire Technician Name | Role | Phone | [...] Description | +--------+--------+ + + + | 03/08/ | Refill | Pediatric | Tania Foster MD | Refill Request | | 2013 | | Gastroenterology at | [address] | ([place]) | | | | [place] | [facility], | | | | | [facility] | [place] [address] | | | | | [address] | [phone] | | | | | Mailcode: CDR | | | | | | [place] | | | | | | [place], [place] | | | | | | [address] | | | | | | [phone] | | | +--------+--------+ + + + [...]
--- OUTSIDE RECORDS SUMMARY | ~2019-02-23 | XMS | Encounter Summary ---
Demographics + + + | Address | [address] | | | [place] [address] | + + + | Home Phone | | + + + | Preferred Language | Unknown | + + + | Marital Status | Single | + + + | Pentecostalism Affiliation | NON | + + + [...] + | Debora Resendiz | ECON | [address] | | | | | [place] | | | | | [address] | | + + + + + [...] Team Providers + +------+ + | Care Nuclear Reactor Technician Name | Role | Phone | + +------+ + | Tracey Galeas MD | PCP | Unavailable | + +------+ + Encounter Details +--------+ + + + + | Date | Type | Department | Care Team | Description | +--------+ + + + + | 03/11/ | Abstract | Pediatric | Tania Foster MD | | | 2011 | | Gastroenterology at | [address] | | | | | [place] | Herminia Ye[facility] | | | | | [facility] | [place] [address] | | | | | [address] [facility] | [phone] | | | | | Mailcode: [facility]AR | | | | | | [place] | | | | | | [place], [place] | | | | | | [address] | | | | | | [phone] | | | +--------+ + + + [...] + | CBC, WITH | Routin | 03/10/2011 | | Results for this | | DIFFERENTIAL | e | 1:34 PM | | procedure are in the | | | | PST | | results section. | + +--------+ + + + | COMPLETE METABOLIC | Routin | 03/10/2011 | | Results for this | | SET | e | 1:34 PM | | procedure are in the | | (NA,K,CL,CO2,BUN,CRE | | PST | | results section. | | AT,GLUC,CA,AST,ALT,B | | | | | | LAYLA TOTAL,ALK | | | | | | PHOS,ALB,PROT TOTAL) | | | | | + +--------+ + + + | VITAMIN B-12 | Routin | 03/10/2011 | | Results for this | | | e | 1:34 PM | | procedure are in the | | | | PST | | results section. | + +--------+ + + + documented in this encounter Results VITAMIN B-12, SERUM (03/10/2011 1:34 PM PST) + +-------+ + + + | Component | Value | Ref Range | Performed | Pathologist | | | | | At | Signature | + +-------+ + + + | VITAMIN | 287 | 180 - 914 pg/ml | [facility] - | | | B12, SERUM | | | [facility] - | | | | | | [place] | | + +-------+ + + + + + | Specimen | + + | Blood - Blood | + + + + + + + | Performing | Address | City/State/Zipcode | Phone Number | | Organization | | | | + + + + + | [facility] - | [address] | [place] [address] | | | [place] | | | | + + + + + COMPLETE METABOLIC SET (NA,K,CL,CO2,BUN,CREAT,GLUC,CA,AST,ALT,BILI TOTAL,ALK PHOS,ALB,PROT TOTAL) (03/10/2011 1:34 PM PST) + +-------+ + + + | Component | Value | Ref Range | Performed | Pathologist | | | | | At | Signature | + +-------+ + + + | GLUCOSE, | 88 | 60 - 200 mg/dL | [facility] | | | PLASMA | | | AIRPORT - | | | (LAB) | | | [place] | | + +-------+ + + + | BUN, PLASMA | 7 | 7 - 25 mg/dL | [facility] - | | | (LAB) | | | AIRPORT - | | | | | | [place] | | + +-------+ + + + | CREATININE | 0.53 | 0.46 - 0.81 | [facility] - | | | PLASMA | | mg/dL | [facility]PORT - | | | (LAB) | | | [place] | | + +-------+ + + + | TOTAL | 6.8 | 6.4 - 8.3 g/dL | [facility] - | | | PROTEIN, | | | [facility] - | | | PLASMA | | | [place] | | | (LAB) | | | | | + +-------+ + + + | ALBUMIN, | 4.1 | 3.40 - 5.20 | [facility] - | | | PLASMA | | g/dL | AIRPORT - | | | (LAB) | | | [place] | | + +-------+ + + + | CALCIUM, | | mg/dL | [facility] | | | PLASMA | | | AIRPORT - | | | (LAB) | | | [place] | | + +-------+ + + + | BILIRUBIN | | Transcutaneous | [facility] | | | TOTAL | | Bilirubinometer | AIRPORT - | | | | | | [place] | | + +-------+ + + + | ALK PHOS | | U/L | [facility] | | | | | | [facility]PORT - | | | | | | [place] | | + +-------+ + + + | AST(SGOT) | 14 | 5 - 43 U/L | [facility] | | | | | | AIRPORT - | | | | | | [place] | | + +-------+ + + + | SODIUM, | 143 | 136 - 148 | [facility] | | | PLASMA | | mmol/L | AIR[facility] - | | | (LAB) | | | [place] | | + +-------+ + + + | POTASSIUM, | 4.0 | 3.5 - 5.1 | [facility] | | | PLASMA | | mmol/L | [facility] - | | | (LAB) | | | [place] | | + +-------+ + + + | CHLORIDE, | 106 | 97 - 109 mmol/L | [facility] | | | PLASMA | | | AIR[facility] - | | | (LAB) | | | [place] | | + +-------+ + + + | TOTAL CO2, | 28 | 22 - 32 mmol/L | [facility] | | | PLASMA | | | AIRPORT - | | | (LAB) | | | [place] | | + +-------+ + + + | ALT (SGPT) | 12 | 10 - 58 U/L | [facility] | | | | | | AIRPORT - | | | | | | [place] | | + +-------+ + + + | ANION GAP | 9 | 4 - 16 | [facility] | | | | [...] + | [facility] - | [address] | [place] [address] | | | [place] | | | | + + + + + CBC, WITH DIFFERENTIAL (03/10/2011 1:34 PM PST) + + + + + + | Component | Value | Ref Range | Performed | Pathologist | | | | | At | Signature | + + + + + + | WHITE CELL | 11.5 (A) | 4.0 - 10.5 K/cu | [facility] - | | | COUNT | | mm | AIR[facility] - | | | | | | [place] | | + + + + + + | RED CELL | 5.47 | 4.0 - 5.50 M/cu | [facility] [...] + + + + | HEMATOCRIT | 38.7 | 37.0 - 50.0 % | [facility] - | [...] + + + + | MCH | 22.3 (A) | 28.0 - 35.0 pg | [facility] - | | | | | | AIRPORT - | | | | | | [place] | | + + + + + + | MCHC | 31.5 | 31.0 - 36.5 | [facility] | | | | | g/dL | AIRPORT - | | | | | | [place] | | + + + + + + | PLATELET | 344 | 140 - 375 K/cu | [facility] - | | | COUNT | | mm | [facility] - | | | | | | [place] | | + + + + + + | NEUTROPHIL | 88.0 | % | [facility] - | | | % | | | AIRPORT - | | | | | | [place] | | + + + + + + | LYMPHOCYTE | 9.7 | % | [facility] - | | | % | | | AIRPORT - | | | | | | [place] | | + + + + + + | MONOCYTE % | 1.7 | % | [facility] - | | [...] + + + + | RDW | 15.4 (A) | 11 - 14.5 % | [facility] | | | | | | AIRPORT - | | | | | | [place] | | + + + + + + | MPV | 9.7 | 8.6 - 12.0 fL | [facility] | | | | | | AIRPORT - | | | | | | [place] | | + + + + + + | NEUTROPHIL | 10.12 (A) | 1.80 - 8.30 | [facility] - | | | # | | K/cu mm | AIRPORT - | | | | | | [place] | | + + + + + + | LYMPHOCYTE | 1.12 | 1.0 - 4.80 K/cu | [facility] | | | # | | mm | AIRPORT - | | | | | | [place] | | + + + + + + | MONOCYTE # | 0.20 | 0.0 - 0.90 K/cu | [facility] - | | | | | mm | [facility] - | | | | | | [place] | | + + + + + + | EOS # | 0.03 | 0.0 - 0.40 K/cu | [facility] - | | | | | mm | [facility] - | | | | | | [place] | | + + + + + + | BASO # | 0.03 | 0.0 - 0.20 | [facility] - | | | | | | AIRPORT - | | | | | | [place] | | + + + + + + | RDW | 39.2Comment: SD | 36.0 - 50.0 % | [facility] - | [...] + | [facility] - | [address] | [place] [address] | | | [place] | | | | + + + + + documented in this encounter Visit Diagnoses Not on filedocumented in this encounter"
--- OUTSIDE RECORDS SUMMARY | ~2019-02-23 | XMS | Encounter Summary ---
Demographics + + + | Address | [address] | | | [place] [address] | + + + | Home Phone [...] + | Debora Resendiz | ECON | [id number] | | | | | [place] | | | | | [phone] | | + + + + + [...] Team Providers + +------+ + | Care Site Acquisition Manager Name | Role | Phone | [...] | | | [place] | Herminia Ye[facility] [place], | | | | | [facility] | [place] [address] | | | | | [address] | [phone] | | | | | Mailcode: [facility] | | | | | | [place] | | | | | | [place], [place] | | | | | | [address] | | | | | | [phone] | | | +--------+ + + + [...]
--- OUTSIDE RECORDS SUMMARY | ~2019-02-23 | XMS | Encounter Summary ---
Demographics + + + | Address | [address] | | | [place] [address] | + + + | Home Phone | | + + + | Preferred Language | Unknown | + + + | Marital Status | Single | + + + | Orthodox Affiliation | NON | + + [...] + | Debora Resendiz | ECON | [phone] | | | | | [place] | | | | | [address] | | + + + + + [...] Team Providers + +------+ + | Care Javascript Web Developer Name | Role | Phone | + +------+ + | Tracey Galeas MD | PCP | Unavailable | + +------+ + Reason for Visit + + + | Reason | Comments | + + + | Question | labs, f/u | + + + Encounter Details +--------+ + + + + | Date | Type | Department | Care Team | Description | +--------+ + + + + | 07/27/ | Telephone | Pediatric | Tania Foster MD | Question (labs, f/u) | | 2011 | | Gastroenterology at | [address] [facility] | | | | | [place] | [facility], | | | | | [facility] | [place] [address] | | | | | [address] [facility] | [phone] | | | | | Mailcode: [id number] | | | | | | [place] | | | | | | [place], [place] | | | | | | [address] | | | | | | [phone] | | | +--------+ + + + [...]
--- OUTSIDE RECORDS SUMMARY | ~2019-02-23 | XMS | Encounter Summary ---
Demographics + + + | Address | [address] | | | [place] [address] | + + + | Home Phone [...] + | Debora Resendiz | ECON | [address] | | | | | [place] | | | | | [address] | | + + + + + [...] Team Providers + +------+ + | Care Copra Processor Name | Role | Phone | + +------+ + | Srinivas Stephens DO | PCP | | + +------+ + Reason for Visit + + + | Reason | Comments | + + + | Consultation | | + + + Encounter Details +--------+ + + + + | Date | Type | Department | Care Team | Description | +--------+ + + + + | 12/11/ | Documentati | [facility] at [facility] 7th | Marcela Peterson, | Consultation | | 2015 | on | Floor [address] | PhD | | | | | St Mailcode: [facility] | | | | | | [place], [place] | | | | | | [address] | | | | | | [phone] | | | +--------+ + + + [...]
--- OUTSIDE RECORDS SUMMARY | ~2019-02-23 | XMS | Encounter Summary ---
Demographics + + + | Address | [address] | | | [place] [address] | + + + | Home Phone [...] + + + | Author | [facility] | + + + | Organization | [facility] | + + + | Address | Unknown | + + + | Phone | Unavailable | + + + Support + + + + + | Name | Relationship | Address | Phone | + + + + + | Debora Resendiz | ECON | [address] | | | | | [place] | | | | | [address] | | + + + + + | Quang Resendiz | ECON | Unknown | | + + + + + | Vesna Hernandez | ECON | Unknown | | + + + + + | Pradeep Hytat | ECON | Unknown | Unavailable | + + + + + | Lonnie Hyatt | ECON | Unknown | Unavailable | + + + + + | Jeremias | ECON | Unknown | | + + + + + Care Team Providers + +------+ + | Care Chaplaincy Name | Role | Phone | + +------+ + | Tracey Galeas MD | PCP | Unavailable | + +------+ + Encounter Details +--------+ + + + + | Date | Type | Department | Care Team | Description | +--------+ + + + + | 03/19/ | Abstract | Pediatric | Tania Foster MD | | | 2011 | | Gastroenterology at | [address] | | | | | [place] | [facility] | | | | | [facility] | [place] [address] | | | | | [address] [facility] | [phone] | | | | | Mailcode: [facility]AR | | | | | | [place] | | | | | | [place], [place] | | | | | | [address] | | | | | | [phone] | | | +--------+ + + + [...] | + +--------+ + + + | TPMT ENZYME, RBC | Routin | 03/10/2011 | | Results for this | | | e | 1:34 PM | | procedure are in the | | | | PST | | results section. | + +--------+ + + + | HEPATITIS B SURFACE | Routin | 03/10/2011 | | Results for this | | AB QUAL, SERUM | e | 1:34 PM | | procedure are in the | | | | PST | | results section. | + +--------+ + + + documented in this encounter Results HEPATITIS B SURFACE AB QUAL, SERUM (03/10/2011 1:34 PM PST) + + + + + + | Component | Value | Ref Range | Performed | Pathologist | | | | | At | Signature | + + + + + + | HEP B | Negative | Negative | [facility] | | | SURFACE AB | | | [facility] - | | | QUAL, SERUM | | | [place] | | + + + + + + + + | Specimen | + + | Blood - Blood | + + + + + + + | Performing | Address | City/State/Zipcode | Phone Number | | Organization | | | | + + + + + | [facility] - | [address] | [place] [address] | | | [place] | | | | + + + + + TPMT ENZYME (03/10/2011 1:34 PM PST) + + + + + + | Component | Value | Ref Range | Performed | Pathologist | | | | | At | Signature | + + + + + + | TPMT ENZYME | 23.4 (A) | 6.0 - 21.0 | [facility] | | | ACTIVITY | | | LABORATORIE | | | | | | S | | + + + + + + + + | Specimen | + + | Blood - Blood | + + + + + + + | Performing | Address | City/State/Zipcode | Phone Number | | Organization | | | | + + + + + | [facility] | [address] [facility] [facility] [address] | [place] [address] | | | LABORATORIES | [address] | | | + + + + + documented in this encounter Visit Diagnoses Not on filedocumented in this encounter"
--- OUTSIDE RECORDS SUMMARY | ~2019-02-23 | XMS | Encounter Summary ---
Demographics + + + | Address | [address] | | | [place] [address] | + + + | Home Phone [...] + | Debora Resendiz | ECON | [address] | | | | | [place] | | | | | [address] | | + + + + + [...] Team Providers + +------+ + | Care Weigher Operator Name | Role | Phone | + +------+ + | Tracey Galeas MD | PCP | Unavailable | + +------+ + Encounter Details +--------+ + + + + | Date | Type | Department | Care Team | Description | +--------+ + + + + | 05/07/ | Telephone | Pediatric | Tania Foster MD | | | 2011 | | Gastroenterology at | [address] | | | | | [place] | [facility] | | | | | [facility] | [place] [address] | | | | | [address] | [phone] | | | | | Mailcode: [facility] | | | | | | [place] | | | | | | [place], [place] | | | | | | [address] | | | | | | [phone] | | | +--------+ + + + [...]
--- OUTSIDE RECORDS SUMMARY | ~2019-02-23 | XMS | Encounter Summary ---
Demographics + + + | Address | [address] | | | [place] [address] | + + + | Home Phone | | + + + | Preferred Language | Unknown | + + + | Marital Status | Single | + + + | Scientology Affiliation | NON | + + + [...] + | Debora Resendiz | ECON | [address] | | | | | [place] | | | | | [address] | | + + + + + [...] Team Providers + +------+ + | Care Administrative Law Judge Name | Role | Phone | + [...] | | | [place] | [facility] | | | | | [facility] | [place] [address] | | | | | [address] | [phone] | | | | | Mailcode: [place] | | | | | | [place] | | | | | | [place], [place] | | | | | | [address] | | | | | | [phone] | | | +--------+ + + + [...] + | [facility] - | [address] | [place] [address] | | | [place] | | | [...] + | [facility] - | [address] | [place] [address] | | | [place] | | | [...] | + + + + + | [facility] | [address] | [place] [address] | | | [place] | | | [...] 2.56 | 1.0 - 4.80 K/cu | [facility] - | | | # | | [...] + | [facility] - | [address] | [place] [address] | | | [place] | | | | + + + + + documented in this encounter Visit Diagnoses Not on filedocumented in this encounter"
--- OUTSIDE RECORDS SUMMARY | ~2019-02-23 | XMS | Encounter Summary ---
Demographics + + + | Address | [address] | | | [place] [address] | + + + | Home Phone [...] Author + + + | Author | [facility] | + + + | Organization | [facility] | + + + | Address | Unknown | + + + | Phone | Unavailable | + + + Support + + + + + | Name | Relationship | Address | Phone | + + + + + | Debora Resendiz | ECON | [address] | | | | | [place] | | | | | [address] | | + + + + + [...] Team Providers + +------+ + | Care Batting Machine Operator Insulation Name | Role | Phone | + +------+ + | Tracey Galeas MD | PCP | Unavailable | + +------+ + Reason for Visit +--------+ + | Reason | Comments | +--------+ + | Other | iron infusion | +--------+ + Encounter Details +--------+ + + + + | Date | Type | Department | Care Team | Description | +--------+ + + + + | 02/18/ | Telephone | Pediatric | Tania Foster MD | Other (iron | | 2011 | | Gastroenterology at | [address] | infusion) | | | | [place] | [facility], | | | | | [facility] | [place] [address] | | | | | [address] [place] [address] | [phone] | | | | | Mailcode: [place] | | | | | | [place] | | | | | | [place], [place] | | | | | | [address] | | | | | | [phone] | | | +--------+ + + + [...]
--- OUTSIDE RECORDS SUMMARY | ~2019-02-23 | XMS | Encounter Summary ---
Demographics + + + | Address | [address] | | | [place] [address] | + + + | Home Phone [...] + | Debora Resendiz | ECON | [address] | | | | | [place] | | | | | [address] | | + + + + + [...] Team Providers + +------+ + | Care Mimeograph Operator Name | Role | Phone | [...] | | | [place] | [facility], | | | | | [facility] | [place] [address] | | | | | [address] | [phone] | | | | | Mailcode: [facility] | | | | | | [place] | | | | | | [place], [place] | | | | | | [address] | | | | | | [phone] | | | +--------+ + + + [...]
--- OUTSIDE RECORDS SUMMARY | ~2019-02-23 | XMS | Encounter Summary ---
Demographics + + + | Address | [address] | | | [place] [address] | + + + | Home Phone [...] + | Debora Resendiz | ECON | [address] | | | | | [place] | | | | | [address] | | + + + + + [...] Team Providers + +------+ + | Care Marketing Services Manager Name | Role | Phone | + +------+ + | Tracey Galeas MD | PCP | Unavailable | + +------+ + Encounter Details +--------+ + + + + | Date | Type | Department | Care Team | Description | +--------+ + + + + | 11/24/ | MyChart | Pediatric | Tania Foster MD | RE: Question | | 2011 | Encounter | Gastroenterology at | [address] | regarding LIVER SET | | | | [place] | Herminia Yepez [place], | | | | | [facility] | [place] [address] | | | | | [address] | [phone] | | | | | Mailcode: [facility] | | | | | | [place] | | | | | | [place], [place] | | | | | | [address] | | | | | | [phone] | | | +--------+ + + + [...]
--- OUTSIDE RECORDS SUMMARY | ~2019-02-23 | XMS | Encounter Summary ---
Demographics + + + | Address | [address] | | | [place] [address] | + + + | Home Phone [...] + | Debora Resendiz | ECON | [address] | | | | | [place] | | | | | [address] | | + + + + + [...] Team Providers + +------+ + | Care Engineer Soils Name | Role | Phone | + [...] 2011 | | Gastroenterology at | [address] [facility] | dose/taper) | | | | [place] | Herminia Yepez [place], | | | | | [facility] | [place] [address] | | | | | [address] | [phone] | | | | | Mailcode: [facility] | | | | | | [place] | | | | | | [place], [place] | | | | | | [address] | | | | | | [phone] | | | +--------+ + + + [...]
--- OUTSIDE RECORDS SUMMARY | ~2019-02-23 | XMS | Encounter Summary ---
Demographics + + + | Address | [address] | | | [place] [address] | + + + | Home Phone | | + + + | Preferred Language | Unknown | + + + | Marital Status | Single | + + + | Mandaeism Affiliation | NON | + + + [...] + | Debora Resendiz | ECON | [address] | | | | | [place] | | | | | [address] | | + + + + + [...] Team Providers + +------+ + | Care Green Chain Puller Name | Role | Phone | + +------+ + | Tracey Galeas MD | PCP | Unavailable | + +------+ + Encounter Details +--------+------+ + + + | Date | Type | Department | Care Team | Description | +--------+------+ + + + | 04/18/ | Lab | Lab Center at [facility] | | Crohn's disease, | | 2013 | | 7th Floor [address] | | small and large | | | | [address] [place], | | intestine with | | | | [place] [address] | | granuloma in the | | | | [phone] | | colon, severe | | | [...] | + + + + + | [facility] | [address] | [place] [address] | | | SERVICES, CORE | CRISTIAN [...] [facility] | [address] | [place] [address] | | | SERVICES, CORE | PARK [...] [facility] | [address] | [place] [address] | | | SERVICES, CORE | PARK [...] | + + + + + | [facility] | [address] | [place] [address] | | | SERVICES, SPECIAL | CRISTIAN [...] - | | | | | | [facility] | | + +-------+ + + + + + | Specimen | + + | Blood - Blood | + + + + + + + | Performing | Address | City/State/Zipcode | Phone Number | | Organization | | | | + + + + + | [facility] | [address] | [place] [address] | | | [place] | | | | + + + [...] [facility] | [address] | [place] [address] | | | SERVICES, CORE | PARK [...]
--- OUTSIDE RECORDS SUMMARY | ~2019-02-23 | XMS | Encounter Summary ---
Demographics + + + | Address | [address] | | | [place] [address] | + + + | Home Phone [...] + | Debora Resendiz | ECON | [address] | | | | | [place] | | | | | [address] | | + + + + + [...] Team Providers + +------+ + | Care Cashier Parking Lot Name | Role | Phone | + +------+ + | Tracey Galeas MD | PCP | Unavailable | + +------+ + Reason for Visit + + + | Reason | Comments | + + + | Bone Density Scan | | + + + Diagnostic Testing (Routine) +--------+--------+ + + + + | Status | Reason | Specialty | Diagnoses / | Referred By | Referred To | | | | | Procedures | Contact | Contact | +--------+--------+ + + + + | Closed | | Bone | Diagnoses | Kristin, | End Bne | | | | Densitometry | Crohn's | Tania V, MD | [facility] | | | | | disease, | [address] | [address] | | | | | small and | Anam | [address] | | | | | large | [facility] Yepez | Mailcode: | | | | | intestine | [place], [place] | [facility] | | | | | ([facility]) | [address] | for Health | | | | | Procedures | Phone: | and Healing, | | | | | BONE DENSITY | [phone] | [address] | | | | | PROCEDURE | Fax: | [place], [place] | | | | | | [phone] | [address] | | | | | | | Phone: | | | | | | | [phone] | | | | | | | Fax: | | | | | | | [phone] | +--------+--------+ + + + + Encounter Details +--------+---------+ + + + | Date | Type | Department | Care Team | Description | +--------+---------+ + + + | 10/18/ | Office | Bone Density at | | Osteoporosis, | | 2012 | Visit | [facility] 1st Floor [address] | | unspecified (Primary | | | | [address] | | Dx); Special | | | | Mailcode: [id number] | | screening for | | | | [facility] | | osteoporosis | | | | and Healing, | | | | | | Building [address] | | | | | | [place], [place] | | | | | | [address] | | | | | | [phone] | | | +--------+---------+ + + + [...] as of this encounter Progress Notes Tania Silver - 10/18/2012 9:27 AM PDTBone density scans performed. Upon completion of the Interpretation Report, the report and DXA scan images will be scanne d into E-nterview and will be located in the patient's Chart Review, under the Media tab. documented in this encount er Plan of Treatment Not on filedocumented as of this encounter Procedures + +--------+ + + + | Procedure Name | Priori | Date/Time | Associated Diagnosis | Comments | | | ty | | | | + +--------+ + + + | BONE DENSITOMETRY | | 10/18/2012 | | Results for this | | | | 12:00 AM | | procedure are in the | | | | PDT | | results section. | + +--------+ + + + documented in this encounter Results BONE DENSITOMETRY (10/18/2012 12:00 AM PDT) + + + | Narrative | Performed At | + + + | | | | | | + + + + + | Procedure Note | + + | Lei Crane - 10/22/2012 10:42 AM PDT | + + documented in this encounter Visit Diagnoses + + | Diagnosis | + + | Osteoporosis, unspecified - Primary | + + | Special screening for osteoporosis | + + documented in this encounter"
--- OUTSIDE RECORDS SUMMARY | ~2019-02-23 | XMS | Encounter Summary ---
Demographics + + + | Address | [address] | | | [place] [address] | + + + | Home Phone [...] + | Debora Resendiz | ECON | [address] | | | | | [place] | | | | | [address] | | + + + + + [...] Team Providers + +------+ + | Care Survey Researcher Name | Role | Phone | + [...] | Gastroenterology at | [address] [facility] | management | | | | [place] | [facility], | | | | | [facility] | [place] [address] | | | | | [address] [facility] | [phone] | | | | | Mailcode: [id number] | | | | | | [place] | | | | | | Street, [place] | | | | | | [address] | | | | | | [phone] | | | +--------+ + + + [...]
--- OUTSIDE RECORDS SUMMARY | ~2019-02-23 | XMS | Encounter Summary ---
Demographics + + + | Address | [address] | | | [place] [address] | + + + | Home Phone [...] + | Debora Resendiz | ECON | [address] | | | | | [place] | | | | | [address] | | + + + + + [...] | + + + + + | Brittni | ECON | Unknown | | + + + + + Care Team Providers + +------+ + | Care Physician Vice President Name | Role | Phone | + +------+ + | Tracey Galeas MD | PCP | Unavailable | + +------+ + Encounter Details +--------+ + + + + | Date | Type | Department | Care Team | Description | +--------+ + + + + | 03/08/ | Clinical | Pediatric | | | | 2012 | Support | Hematology Oncology | | | | | Staff | at [facility] | | | | | | [facility] | | | | | | [address] | | | | | | Mailcode: [id number] | | | | | | [place] | | | | | | [place], [place] | | | | | | [address] | | | | | | [phone] | | | +--------+ + + + [...] + + + | Blood Pressure | 134/70 | 03/08/2012 12:50 PM | | | | | PST | | + + + + + | Pulse | 84 | 03/08/2012 12:50 PM | | | | | PST | | + + + + + | Temperature | 36.9 C (98.4 F) | 03/08/2012 12:50 PM | | | | | PST | | + + + + + | Respiratory Rate | 20 | 03/08/2012 9:05 AM | | | | | PST | | + + + + + | Oxygen Saturation | - | - | | + + + + + | Inhaled Oxygen | - | - | | | Concentration | | | | + + + + + | Weight | 68.6 kg (151 lb 3.8 | 03/08/2012 9:05 AM | | | | oz) | PST | | + + + + + | Height | 172.4 cm (5' 7.87") | 03/08/2012 9:05 AM | | | | | PST | | + + + + + | Body Mass Index | 23.08 | 03/08/2012 9:05 AM | | | | | PST | | + + + + + documented in this encounter Progress Notes Jennifer Lucas RN - 03/08/2012 9:36 AM SUSANABrittni arrived in the infusion room to recei ve his infliximab. He appears to be comfortable and denies URI or any other symptoms of curr ent illness. He is accompanied by his mother. The pediatric GI nurse practioniers have been notified. A PIV was placed by IVT in his L forearm and he was given his oral premedications. Brittni tolerated both his remicaide and Iron infusions without any apparent adverse side a ffects. brittni's PIV was dcd. After his iron infusion and he was dcd. From the clinic.Elect ronically signed by Jennifer Lucas RN at 03/08/2012 4:03 PM PSTdocumented in this encount er Plan of Treatment Not on filedocumented as of this encounter Procedures + +--------+ + + + | Procedure Name | Priori | Date/Time | Associated Diagnosis | Comments | | | ty | | | | + +--------+ + + + | PEDS INFUSION PLAN | Routin | 03/08/2012 | Anemia | | | SCHEDULING | e | 9:35 AM | | | | INSTRUCTIONS | | PST | | | + +--------+ + + + | GUIDELINES FOR | Routin | 03/08/2012 | Anemia | | | ORDERING #1 - [facility] | e | 9:35 AM | | | | | | PST | | | + +--------+ + + + | NURSING | Routin | 03/08/2012 | High risk | | | COMMUNICATION #3 - | e | 9:19 AM | medications (not | | | [facility]ACON | | PST | anticoagulants) | | | | | | long-term use | | | | | | Crohn's disease, | | | | | | small and large | | | | | | intestine with | | | | | | granuloma in the | | | | | | colon, severe | | | | | | duodenitis | | + +--------+ + + + | NURSING | Routin | 03/08/2012 | High risk | | | COMMUNICATION #2 - | e | 9:19 AM | medications (not | | | [facility] | | PST | anticoagulants) | | | | | | long-term use | | | | | | Crohn's disease, | | | | | | small and large | | | | | | intestine with | | | | | | granuloma in the | | | | | | colon, severe | | | | | | duodenitis | | + +--------+ + + + | NURSING | Routin | 03/08/2012 | High risk | | | COMMUNICATION #1 - | e | 9:19 AM | medications (not | | | [facility] | | PST | anticoagulants) | | | | | | long-term use | | | | | | Crohn's disease, | | | | | | small and large | | | | | | intestine with | | | | | | granuloma in the | | | | | | colon, severe | | | | | | duodenitis | | + +--------+ + + + | CBC AND AUTO DIFF | Routin | 03/08/2012 | High risk | Results for this | | | e | 9:01 AM | medications (not | procedure are [...] + | MANUAL DIFFERENTIAL | Routin | 03/08/2012 | High risk | Results for this | | | e | 9:01 AM | medications (not | procedure are [...] + | CBC, WITH | Routin | 03/08/2012 | High risk | Results for this | | DIFFERENTIAL | e | 9:01 AM | medications (not | procedure are [...] + | LIVER SET | Routin | 03/08/2012 | High risk | Results for this | | (AST,ALT,BILI | e | 9:01 AM | medications (not | procedure are [...] documented in this encounter Results MANUAL DIFFERENTIAL (03/08/2012 9:01 AM PST) + + + + + [...] + + + + | MICROCYTOSI | 2+ (25-50cells/HPF) | (none) | [facility] [...] LABORATORY | [address] | [place] [address] | | | SERVICES, CORE | [address] | | | + + + + + CBC AND AUTO DIFF (03/08/2012 9:01 AM PST) + + + + + [...] + + + | RED CELL | 5.45 (H) | >4.50 - 5.30 | [facility] | | | COUNT | | M/cu mm | LABORATORY | | | | | | SERVICES, | | | | | | CORE | | + + + + + + | HEMOGLOBIN | 12.7 (L) | 13.0 - 16.0 | [facility] | | | | | g/dL | LABORATORY | | | | | | SERVICES, | | | | | | CORE | | + + + + + + | HEMATOCRIT | 38.9 | 37.0 - 49.0 % | [facility] [...] + + + + | RDW | 16.7 (H) | 11.5 - 15.0 % | [facility] | | | | | | LABORATORY | | | | | | SERVICES, | | | | | | CORE | | + + + + + + | PLATELET | 211 | 150 - 400 K/cu | [facility] | | | COUNT | | mm | LABORATORY | | | | | | SERVICES, | | | | | | CORE | | + + + + + + | NEUTROPHIL | 41 | 41 - 76 % | [facility] | | | % | | | LABORATORY | | | | | | SERVICES, | | | | | | CORE | | + + + + + + | LYMPHOCYTE | 44 (H) | 7 - 41 % | [...] + + + | EOS % | 4 | 0 - 6 % | [facility] [...] + + + + | NEUTROPHIL | 1.7 (L) | 2.8 - 11.1 K/cu | [...] + + + + | [facility] | [address] [facility] | [place] [address] | | | SERVICES, CORE | [address] | | | + + + + + LIVER SET (AST,ALT,BILI TOTAL,BILI DIRECT,ALK PHOS,ALB,PROT TOTAL) (03/08/2012 9:01 AM PST ) + +---------+ + + [...] + + + | ALK PHOS | 217 | 55 - 220 U/L | [facility] | | | | | | LABORATORY | | | | | | SERVICES, | | | | | | CORE | | + +---------+ + + + | AST(SGOT) | 19 | 18 - 36 U/L | [facility] | | | | | | LABORATORY | | | | | | SERVICES, | | | | | | CORE | | + +---------+ + + + | ALT (SGPT) | 24 | 12 - 60 U/L | [facility] [...] + + + + + | [facility] | [address] | [place] [address] | | | [place] | [address]STIAN MARTINEZ | | | + [...] | acetaminophen (aka TYLENOL) | Given | 03/08/19 | 650 mg | | | | tablet 650 mg 650 mg, oral, | | 13 9:34 | | | | | ONCE, 1 dose, 03/08/12 at 1000 | | AM PST | | | | + +--------+ +--------+------+------+ +---+---+ | | | +---+---+ + +---------+ +--------+--------+---+ | inFLIXimab (aka REMICADE) IV | New Bag | 03/08/19 | 400 mg | mL/hr | | | 400 mg 400 mg, intravenous, | | 13 10:19 | | | | | ONCE, 1 dose, 03/08/12 at 1000 | | AM PST | | | | + +---------+ +--------+--------+---+ +---+---+ | | | +---+---+ + +---------+ +--------+-------+---+ | iron sucrose (aka VENOFER) 200 | New Bag | 03/08/19 | 200 mg | 260 | | | mg in NaCl 0.9 % IV 200 mg, | | 13 12:59 | | mL/hr | | | intravenous, Administer over 1 | | PM PST | | | | | Hours, ONCE, 1 dose, 03/08/12 | | | | | | | at 1015, No test dose necessary., | | | | | | | | | | | | | + +---------+ +--------+-------+---+ +---+---+ | | | +---+---+ + +-------+ +-------+---+---+ | loratadine (aka CLARITIN) | Given | 03/08/19 | 10 mg | | | | tablet 10 mg 10 mg, oral, ONCE, | | 13 9:34 | | | | | 1 dose, 03/08/12 at 1000 | | AM PST | | | | + +-------+ +-------+---+---+ +---+---+ | | | +---+---+ documented in this encounter
--- OUTSIDE RECORDS SUMMARY | ~2019-02-23 | XMS | Encounter Summary ---
Demographics + + + | Address | [address] | | | [place] [address] | + + + | Home Phone | | + + + | Preferred Language | Unknown | + + + | Marital Status | Single | + + + | Caodaism Affiliation | NON | + + + [...] + | Debora Resendiz | ECON | [address] | | | | | [place] | | | | | [address] | | + + + + + [...] Team Providers + +------+ + | Care Packing House Laborer Name | Role | Phone | + [...] + + + + | 03/05/ | Hospital | [facility] [address] | Tania Foster MD | | | 2012 | Encounter | [address] | [address] | | | | | [id number] | [facility] | | | | | [place] | [place] [address] | | | | | [facility] | [phone] | | | | | [place] [address] | | | | | | [phone] | | | +--------+ + + + [...] + + + | Blood Pressure | 102/58 | 03/05/2011 1:22 PM | | | | | PST | | + + + + + | Pulse | 60 | 03/05/2011 1:22 PM | | | | | PST | | + + + + + | Temperature | 36 C (96.8 F) | 03/05/2011 1:22 PM | | | | | PST | | + + + + + | Respiratory Rate | 22 | 03/05/2011 1:22 PM | | | | | PST | | + + + + + | Oxygen Saturation | 100% | 03/05/2011 1:22 PM | | | | | PST | | + + + + + | Inhaled Oxygen | - | - | | | Concentration | | | | + + + + + | Weight | 50.7 kg (111 lb 12.4 | 03/05/2011 9:00 AM | | | | oz) | PST | | + + + + + | Height | - | - | | + + + + + | Body Mass Index | - | - | | + + + + + documented in this encounter Discharge Instructions Instructions Tania Foster MD - 03/04/2011 Home Care after Upper Endoscopy/Colonoscopy Activity and [...] take usual medicines unless told otherwise by [facility] doctor. How to Reach Your Doctor: Mon-Fri from 8:00-4:30, call GI Clinic at [phone] After hours, weekends, and holidays, call Hospital Homicide Squad Captain at [phone]. Ask to have your doctor paged. Return Appointment: Your roustabout crew will contact you with the biopsy results, which are usually availab le within about 10 days after the procedure. documented in this encounter Plan of Treatment Not on filedocumented as of this encounter Procedures + +--------+ + + + | Procedure Name | Priori | Date/Time | Associated Diagnosis | Comments | | | ty | | | | + +--------+ + + + | ENDOSCOPY | Routin | 03/30/2015 | | Results for this | | | e | 3:59 AM | | procedure are in the | | | | PST | | results section. | + +--------+ + + + | PROCEDURE NOTE | Routin | 03/30/2015 | | Results for this | | | e | 3:55 AM | | procedure are in the | | | | PST | | results section. | + +--------+ + + + | H. PYLORI CLOTEST | Routin | 03/05/2011 | | Results for this | | | e | 12:25 PM | | procedure are in the | | | | PST | | results section. | + +--------+ + + + | DISACCHARIDASES, | Routin | 03/05/2011 | | Results for this | | TISSUE | e | 12:03 PM | | procedure are in the | | | | PST | | results section. | + +--------+ + + + | COLONOSCOPY | Routin | 03/05/2011 | | Results for this | | | e | 11:40 AM | | procedure are in the | | | | PST | | results section. | + +--------+ + + + | ANESTHESIA/SEDATION | | 03/05/2011 | | Results for this | | | | 12:00 AM | | procedure are in the | | | | PST | | results section. | + +--------+ + + + | ANESTHESIA/SEDATION | | 03/05/2011 | | Results for this | | | | 12:00 AM | | procedure are in the | | | | PST | | results section. | + +--------+ + + + | ANESTHESIA/SEDATION | | 03/05/2011 | | Results for this | | | | 12:00 AM | | procedure are in the | | | | PST | | results section. | + +--------+ + + + | SURGICAL PATHOLOGY | Routin | 03/05/2011 | | Results for this | | | e | | | procedure are in the | | | | | | results section. | + +--------+ + + + documented in this encounter Results ENDOSCOPY (03/30/2015 3:59 AM PST)PROCEDURE NOTE (03/30/2015 3:55 AM PST) + + | Transcriptions | + + | Other, Faculty - 03/12/2011 12:07 PM PST | + + H. PYLORI CLOTEST (03/05/2011 12:25 PM PST) + + + + + + | Component | Value | Ref Range | Performed | Pathologist | | | | | At | Signature | + + + + + + | CLOTEST | Helicobacter NOT | | [facility] | | | INTERPRETAT | detected by | | REGIONAL | | | ION | CLOtest.Comment: | | LAB-MICRO | | | | Test performed by [facility] | | | | | | [facility] | | | | | [facility]. | | | | + + + + + + | SOURCE BODY | site 1, antrum | | [facility] | | | SITE | | | REGIONAL | | | | | | LAB-MICRO | | + + + + + + + + | Specimen | + + | | + + + + + + + | Performing | Address | City/State/Zipcode | Phone Number | | Organization | | | | + + + + + | [facility] | [address] | [place] [address] | | | LAB-MICRO | | | | + + + + + DISACCHARIDASES, TISSUE (03/05/2011 12:03 PM PST) + + + + + + | Component | Value | Ref Range | Performed | Pathologist | | | | | At | Signature | + + + + + + | SOURCE, | duadinum | | [facility] | | | TISSUE | | | [facility] | | | | | | [facility] | | [facility] | | + + + + + + | LACTASE, | 11.4 (L) | 15.0 - 45.5 | [facility] | | | TISSUE | | uM/min/gm prot | [facility] | | | | | | [facility] | | | | | | [facility] | | + + + + + + | SUCRASE, | 31.6 | 25.0 - 69.9 | [facility] | | | TISSUE | | uM/min/gm prot | [facility] | | | | | | [facility] | | | | | | [facility] | | + + + + + + | MALTASE, | 100.3 | 100.0 - 224.4 | [facility] | | | TISSUE | | uM/min/gm prot | [facility] | | | | | | [facility] | | | | | | [facility] | | + + + + + + | PALATINASE, | 8.9 | 5.0 - 26.3 | [facility] | | | TISSUE | | uM/min/gm prot | [facility] | | | | | | [facility] | | | | | | [facility] | | + + + + + + + + | Specimen | + + | | + + + + + | Narrative | Performed At | + + + | Test performed by: [facility] | [facility] | | (Formerly [facility]) [id number] [place], [place] | DIAGNOSTICS | | [address] | [facility] | | | INSTITUTE | + + + + + + + + | Performing | Address | City/State/Zipcode | Phone Number | | Organization | | | | + + + + + | [facility] | [phone] | [place] [address] | | | [facility] | | | | + + + + + COLONOSCOPY (03/05/2011 11:40 AM PST)ANESTHESIA/SEDATION (03/05/2011 12:00 AM PST) + + + | Narrative | Performed At | + + + | | | + + + + + | Transcriptions | + + | Lei Crane - 03/12/2011 12:07 PM PST | + + ANESTHESIA/SEDATION (03/05/2011 12:00 AM PST) + + + | Narrative | Performed At | + + + | | | + + + + + | Transcriptions | + + | Lei Crane - 03/05/2011 1:04 PM PST | + + ANESTHESIA/SEDATION (03/05/2011 12:00 AM PST) + + + | Narrative | Performed At | + + + | | | + + + + + | Transcriptions | + + | Other, Faculty - 03/05/2011 1:04 PM PST | + + SURGICAL PATHOLOGY (03/05/2011) + + + + + + | [...] OF | | | | OF SPECIMEN:C | | PATHOLOGY | | | | EsophagusSOURCE OF | | | | | | SPECIMEN:D Hepatic | | | | | | flexureSOURCE OF | | | | | | SPECIMEN:E Splenic | | | | | | flexureSOURCE OF | | | | | | SPECIMEN:F Left | | | | | | colonSOURCE OF | | | | | | SPECIMEN:G Recto sigmoid | | | | | | Final Pathologic | | | | | | Diagnosis:A: Duodenum, | | | | | | biopsy: - Acute | | | | | | duodenitis with mild | | | | | | villous blunting (see | | | | | | comment) - No | | | | | | granulomas identified | | | | | | B: Antrum, biopsy: | | | | | | - Chronic active | | | | | | gastritis, mild - | | | | | | No Helicobacter-type | | | | | | organisms identified | | | | | | including | | | | | | onimmunohistochemical | | | | | | stain - No | | | | | | granulomas identified | | | | | | C: Esophagus, | | | | | | biopsy: - Scant | | | | | | fragments of squamous | | | | | | mucosa with no | | | | | | diagnostic abnormality | | | | | | D: Hepatic | | | | | | flexure, biopsy: - | | | | | | Active 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 (see comment) | | | | | | E: Splenic | | | | | | flexure, biopsy: - | | | | | | Colonic mucosa with no | | | | | | diagnostic abnormality | | | | | | F: Left colon, | | | | | | biopsy: - Active | | | | | | colitis with granuloma | | | | | | (see comment) G: | | | | | | Rectosigmoid, biopsy: | | | | | | - Active colitis | | | | | | with granuloma | | | | | | Comment: Sections of | | | | | | the hepatic flexure, the | | | | | | left colon, and | | | | | | therectosigmoid show | | | | | | colonic mucosa with | | | | | | neutrophils involving | | | | | | epithelium andmultiple | | | | | | well formed granulomas. | | | | | | CHINTAN and GMS stains | | | | | | performed on block Fare | | | | | | negative for acid-fast | | | | | | and fungal organisms | | | | | | respectively. Sections | | | | | | ofsmall bowel also show | | | | | | acute inflammation with | | | | | | some distortion of | | | | | | villousarchitecture. | | | | | | Though chronic | | | | | | architectural changes | | | | | | are not | | | | | | significant,findings are | | | | | | suggestive of Crohn's | | | | | | disease in the correct | | | | | | clinical context.Case | | | | | | reviewed in | | | | | | intradepartmental | | | | | | consensus conference | | | | | | with agreement. | | | | | | (Analyte [...] | | | | | Case seen by:Todd | | | | | | Radha, M.D./Surgical | | | | | | Pathology ResidentJody | | | | | | Britney Sales, | | | | | | M.D./PathologistT: | | | | | | 2/rdl Clinical | | | | | | History:The patient is a | | | | | | 15-year-old boy with | | | | | | duodenal and colonic | | | | | | ulcerssuspicious for | | | | | | Crohn's disease. | | | | | | Weight loss, right | | | | | | sided pain; | | | | | | questionCrohn, celiac? | | | | | | Gross [...] | | | | | tissue that measure 1x | | | | | | 1.3 x 0.3 cm in | | | | | | aggregate. The entire | | | | | | specimen is submitted. | | | | | | B: Antrum: | | | | | | Received are 2 | | | | | | fragments of bose, soft | | | | | | tissue that measure 0.4x | | | | | | 0.3 x 0.2 cm in | | | | | | aggregate. The entire | | | | | | specimen is submitted. | | | | | | C: Esophagus: | | | | | | Received are 2 | | | | | | fragments of bose, soft | | | | | | tissue that measure0.2 x | | | | | | 0.3 x 0.2 cm in | | | | | | aggregate. The entire | | | | | | specimen is submitted. | | | | | | D: Hepatic | | | | | | flexure: Received are | | | | | | 3 fragments of bose, soft | | | | | | tissue thatmeasure 0.4 | | | | | | x 0.3 x 0.2 cm in | | | | | | aggregate. The entire | | | | | | specimen is submitted. | | | | | | E: | | | | | | Splenic flexure: | | | | | | Received are 2 | | | | | | fragments of bose, soft | | | | | | tissue thatmeasure 0.2 x | | | | | | 0.3 x 0.2 cm in | | | | | | aggregate. The entire | | | | | | specimen is submitted. | | | | | | F: Left | | | | | | colon: Received are 3 | | | | | | fragments of bose, soft | | | | | | tissue that measure0.4 x | | | | | | 0.3 x 0.2 cm in | | | | | | aggregate. The entire | | | | | | specimen is submitted. | | | | | | G: Rectosigmoid: | | | | | | Received are 3 | | | | | | fragments [...] Antrum:B1C: | | | | | | Esophagus:C1D: | | | | | | Hepatic flexure:D1E: | | | | | | Splenic flexure:E1F: | | | | | | Left colon:F1G: | | | | | | Rectosigmoid:G1ER:tp | | | | | | My [...] Sales | | | | | | MariPathologistKorii | | | | | | zahraa Signed 03/11/2011 | | | | | | 3:35PM | | | | + + + + + + + + | Specimen | + + | | + + + + + + + | Performing | Address | City/State/Zipcode | Phone Number | | Organization | | | | + + + + + | [facility] | [address] | [place] [address] | | | PATHOLOGY | [address] | | | + + + + + documented in this encounter Visit Diagnoses Not on filedocumented in this encounter"
--- OUTSIDE RECORDS SUMMARY | ~2019-02-23 | XMS | Encounter Summary ---
Demographics + + + | Address | [address] | | | [place] [address] | + + + | Home Phone | | + + + | Preferred Language | Unknown | + + + | Marital Status | Single | + + + | Latter Day Affiliation | NON | + + + | Race | White | + + + | Ethnic Group | Not or | + + + Author + + + | Author | [facility] | + + + | Organization | [facility] | + + + | Address | Unknown | + + + | Phone | Unavailable | + + + Support + + + + + | Name | Relationship | Address | Phone | + + + + + | Debora Resendiz | ECON | [address] | | | | | [place] | | | | | [address] | | + + + + + [...] Team Providers + +------+ + | Care Personalized Living Manager Nurse Name | Role | Phone | + [...] [address] | | | | | [facility] | [address] | | | | | [place], [place] | [place], [place] | | | | | [address] | [address] | | | | | [phone] | [phone] | | +--------+ + + + + [...]
--- OUTSIDE RECORDS SUMMARY | ~2019-02-23 | XMS | Encounter Summary ---
Demographics + + + | Address | [address] | | | [place] [address] | + + + | Home Phone | | + + + | Preferred Language | Unknown | + + + | Marital Status | Single | + + + | Mandaen Affiliation | NON | + + + | Race | White | + + + | Ethnic Group | Not or | + + + Author + + + | Author | [facility] | + + + | Organization | [facility] | + + + | Address | Unknown | + + + | Phone | Unavailable | + + + Support + + + + + | Name | Relationship | Address | Phone | + + + + + | Debora Resendiz | ECON | [address] | | | | | [place] | | | | | [address] | | + + + + + [...] Providers + +------+ + | Care Property Claims Adjuster Name | Role | Phone | + +------+ + | Tracey Galeas MD | PCP | Unavailable | + +------+ + Encounter Details +--------+ + + + + | Date | Type | Department | Care Team | Description | +--------+ + + + + | 12/06/ | Abstract | Pediatric | Tania Foster MD | | | 2012 | | Gastroenterology at | [address] | | | | | [place] | [facility] | | | | | [facility] | [place] [address] | | | | | [address] | [phone] | | | | | Mailcode: [address] | | | | | | [place] | | | | | | [place], [place] | | | | | | [address] | | | | | | [phone] | | | +--------+ + + + [...] (SED RATE) - CHO | Routin | 11/30/2012 | | Results for this | | | e | 3:20 PM | | procedure are in the | | | | PDT | | results section. | + +--------+ + + + | CBC, WITH | Routin | 11/30/2012 | | Results for this | | DIFFERENTIAL | e | 3:20 PM | | procedure are in the | | | | PDT | | results section. | + +--------+ + + + | AST, PLASMA | Routin | 11/27/2012 | | Results for this | | | e | 3:20 PM | | procedure are in the | | | | PDT | | results section. | + +--------+ + + + | ALT, PLASMA | Routin | 11/30/2002 | | Results for this | | | e | 3:20 PM | | procedure are in the | | | | PDT | | results section. | + +--------+ + + + documented in this encounter Results ESR (SED RATE) - CHO (11/30/2012 3:20 PM PDT) + +-------+ + + + | Component | Value | Ref Range | Performed | Pathologist | | | | | At | Signature | + +-------+ + + + | ESR (SED | 5 | 20 | [facility] | | [...] + | [facility] | [address] | [place] [address] | | | [facility] | | | | + + + + + CBC, WITH DIFFERENTIAL (11/30/2012 3:20 PM PDT) + + + + + + | Component | Value | Ref Range | Performed | Pathologist | | | | | At | Signature | + + + + + + | WHITE CELL | 5.9 | 4.0 - 10.5 K/cu | [facility] | | | COUNT | | mm | [facility] | | | | | | [place] | | + + + + + + | RED CELL | 5.74 (A) | 4.00 - 5.50 | [facility] | | | COUNT | | M/cu mm | [facility] | | | | | | [place] | | + + + + + + | HEMOGLOBIN | 14.3 | 13 - 17 g/dL | [facility] | | | | | | [facility] | | | | | | [place] | | + + + + + + | HEMATOCRIT | 45.4 | 37 - 50 % | [facility] | | | | | | [facility] | | | | | | [place] | | + + + + + + | MCV | 79.1 (A) | 82 - 100 fL | [facility] | | | | | | [facility] | | | | | | [place] | | + + + + + + | MCH | 24.9 (A) | 28 - 35 pg | [facility] | | | | | | [facility] | | | | | | [place] | | + + + + + + | MCHC | 31.5 | 31 - 36.5 g/dL | [facility] | | | | | | [facility] | | | | | | [place] | | + + + + + + | PLATELET | 254 | 140 - 375 K/cu | [facility] | | | COUNT | | mm | [facility] | | | | | | [place] | | + + + + + + | NEUTROPHIL | 40.60 | % | [facility] | | | % | | | [facility] | | | | | | [place] | | + + + + + + | LYMPHOCYTE | 47.70 | % | [facility] | | | % | | | [facility] | | | | | | [place] | | + + + + + + | MONOCYTE % | 8.30 | % | [facility] | | | | | | [facility] | | | | | | [place] | | + + + + + + | EOS % | 2.70 | % | [facility] | | | | | | [facility] | | | | | | [place] | | + + + + + + | BASO % | 0.70 | % | [facility] | | | | | | [facility] | | | | | | [place] | | + + + + + + | RDW | 15.1 (A) | 11 - 14.5 % | [facility] | | | | | | [facility] | | | | | | [place] | | + + + + + + | MPV | 10.2 | fL | [facility] | | | | | | [facility] | | | | | | [place] | | + + + + + + | NEUTROPHIL | 2.39 | 1.80 - 8.30 | [facility] | | | # | | K/cu mm | [facility] | | | | | | [place] | | + + + + + + | LYMPHOCYTE | 2.81 | 1.00 - 4.80 | [facility] | | | # [...] + + + | EOS # | 0.16 | 0 - 0.40 K/cu | [facility] | | | | | mm | [facility] | | | | | | [place] | | + + + + + + | BASO # | 0.04 | 0 - 0.20 | [facility] | | | | | | [facility] | | | | | | [place] | | + + + + + + | RDW | SD 43.1 | 36 - 50 % | [facility] | [...] + | [facility] | [address] | [place] [address] | | | [place] | | | | + + + + + AST, PLASMA (11/27/2012 3:20 PM PDT) + +-------+ + + + | Component | Value | Ref Range | Performed | Pathologist | | | | | At | Signature | + +-------+ + + + | AST (SGOT) | 22 | 5 - 43 Units/L | [facility] | | | | [...] + | [facility] | [address] | [place] [address] | | | [place] | | | | + + + + + ALT, PLASMA (11/30/2002 3:20 PM PDT) + +-------+ + + + [...] + | [facility] | [address] | [place] [address] | | | [place] | | | | + + + + + documented in this encounter Visit Diagnoses Not on filedocumented in this encounter"
--- OUTSIDE RECORDS SUMMARY | ~2019-02-23 | XMS | Encounter Summary ---
Demographics + + + | Address | [address] | | | [place] [address] | + + + | Home Phone [...] + | Debora Resendiz | ECON | [address] | | | | | [place] | | | | | [address] | | + + + + + [...] Team Providers + +------+ + | Care Wall Insulation Sprayer Name | Role | Phone | + [...] | +--------+ + + + + | 05/17/ | Telephone | Pediatric | Tania Foster MD | Other | | 2011 | | Gastroenterology at | [address] [facility] | | | | | [place] | [facility], | | | | | [facility] | [place] [address] | | | | | [address] | [phone] | | | | | Mailcode: [facility] | | | | | | [place] | | | | | | [place], [place] | | | | | | [address] | | | | | | [phone] | | | +--------+ + + + [...]
--- OUTSIDE RECORDS SUMMARY | ~2019-02-23 | XMS | Clinical Summary ---
Demographics + + + | Address | [address] | | | [place] [address] | + + + | Home Phone | | + + + | Preferred Language | Unknown | + + + | Marital Status | Single | + + + | Presybeterian Affiliation | NON | + + + | Race | White | + + + | Ethnic Group | Not or | + + + Author + + + | Author | [facility] | + + + | Organization | [facility] | + + + | Address | Unknown | + + + | Phone | Unavailable | + + + Support + + + + + | Name | Relationship | Address | Phone | + + + + + | Debora Resendiz | ECON | [address] | | | | | [place] | | | | | [address] | | + + + + + [...] Unavailable | + + + + + Monica Mcdowell | ECON | Unknown | | + + + + + Care Team Providers + +------+ + | Care Railway Track Plant Operator Name | Role | Phone | + +------+ + | Srinivas Stephens DO | PCP | | + +------+ + Source Comments DALE is fully live on both [facility] and [facility] InPatient.On License Of [facility] Allergies No Known Allergies Medications + + + +---------+------+------+-------+ | Medication | Sig | Dispensed | Refills | Star | End | Statu | | | | | | t | Date | s | | | | | | Date | | | + + + +---------+------+------+-------+ | MULTIVITAMIN ORAL | Take by mouth. Take | | 0 | | | Activ | | | 1 tablet by mouth | | | | | e | | | Daily. | | | | | | + + + +---------+------+------+-------+ | peg-electrolyte | Mix GOLYtely and | 4000 mL | 0 | 12/24 | | Activ | | [id number] gram | take 8 oz every | | | 0/20 | | e | | oral recon soln | 20-30 minutes until | | | 14 | | | | | full gallon is gone. | | | | | | + + + +---------+------+------+-------+ | mesalamine | Take 2 tablets by | 60 | 0 | 10/25 | | Activ | | (LIALDA) 1.2 g oral | mouth once daily. | tablet | | 11/12 | | e | | tablet,delayed | Indications: CROHN'S | | | 15 | | | | release | DISEASE | | | | | | | (DR/EC)Indications: | | | | | | | | Crohn's disease | | | | | | | + + + +---------+------+------+-------+ | calcium carbonate | Take 600 mg by mouth | | 0 | | | Activ | | chewable 200 mg | three times daily. | | | | | e | | calcium (500 mg) | | | | | | | | oral tablet,chewable | | | | | | | + + + +---------+------+------+-------+ | adalimumab | Inject 0.8 mL under | 1 kit | 3 | 04/2 | | Activ | | (HUMIRA) 40 mg/0.8 | the skin (SUBC) | | | 0/20 | | e | | mL subcutaneous | every fourteen days. | | | 16 | | | | syringe | Please take a | | | | | | | kitIndications: | Zyrtec 10 mg tab and | | | | | | | Crohn's disease | 500 mg of Tylenol | | | | | | | | po 30 min before | | | | | | | | injecting medicine. | | | | | | | | Indications: | | | | | | | | CROHN'S DISEASE | | | | | | + + + +---------+------+------+-------+ Active Problems + + + | Problem | Noted Date | + + + | Helicobacter pylori gastritis | 01/09/2014 | + + + | Abdominal pain, epigastric | 11/17/2013 | + + + | Arthralgia of toe | 05/23/2013 | + + + | Vitamin D deficiency | 04/19/2013 | + + + | Asthma, allergic | 10/18/2012 | + + + + + | Overview: kristie | + + + + + | Arthritis associated with inflammatory bowel disease | 06/28/2012 | + + + | Fatigue | 06/28/2012 | + + + | Neutropenia | 04/01/2012 | + + + | Vitamin B12 deficiency | 12/26/2011 | + + + | Excessive thirst | 12/26/2011 | + + + | Hematochezia | 12/25/2011 | + + + | High risk medications (not anticoagulants) long-term use | 07/04/2011 | + + + | Helicobacter positive gastritis | 06/24/2011 | + + + | Anorexia | 06/19/2011 | + + + | Crohn's disease, small and large intestine with granuloma in the | 03/05/2011 | | colon, severe duodenitis | | + + + + + | Overview: Diagnosed with Crohn's Feb, 2011 of antrum, | | duodenum, colon. Granuloma in colonMRE:Feb, 2011 Mild mural | | thickening andmucosal hyperenhancement in short segment of | | terminal ileum, at andjust proximal to ileocecal valve. Remainder | | of small bowel isunremarkable, without wall thickening, | | hyperenhancement, orstricture. Slight hyperenhancement without | | mural thickening ispresent in descending colon. D/C'd Imuran | | July,, - decreased [id number] D: Terminal ileum, biopsy: - | | Chronic ileitis with minimal activity and focal granulomas - | | Negative for dysplasia E: Right colon, biopsy: - Chronic colitis, | | inactive - Negative for granulomas and dysplasia F: Transverse | | colon, biopsy: - Colonic mucosa with no diagnostic abnormality - | | Negative for granulomas and dysplasia G: Left colon, biopsy: - | | Chronic colitis, inactive - Negative for granulomas and dysplasia | | Case seen by: Rc Singh/Student Fellow Iris Prado M.D., | | PhD./Pathologist :[place] October 18, first dose of Humira | | and stopped Remicade. | + + + + + | Gastric ulcer | 03/05/2011 | + + + | Weight loss | 02/04/2011 | + + + | Diarrhea | 02/04/2011 | + + + | Heartburn | 02/04/2011 | + + + | Abdominal pain, acute, right upper quadrant | 02/04/2011 | + + + | Nausea | 02/04/2011 | + + + Resolved Problems +---------+ + + | Problem | Noted | Resolved | | | Date | Date | +---------+ + + | Anemia | 02/05/20 | | | | 11 | 3 | +---------+ + + Immunizations + + + + | Name | Administration Dates | Next Due | + + + + | Influenza, split | 12/03/2012, 11/21/2011 | | | (incl. purified | | | | surface antigen) | | | + + + + | Ppd (tuberculin | 03/14/2011, 03/11/2011, 03/11/2011 | | | Purified Protein | | | | Derivative) | | | + + + + Social History + [...] recent travel history available. | + + Last Filed Vital Signs + + + [...] | | + + + + + Plan of Treatment + + + + + | Health Maintenance | Due Date | Last Done | Comments | + + + + + | Pneumococcal | | | | | vaccination (1 of 3 | 3 | | | | - PCV13) | | | | + + + + + | Influenza (Flu) | | 12/03/2012, 11/21/2011 | | | vaccination (#1) | 9 | | | + + + + + Results Not on filefrom Last 3 Months Insurance + +--------+ +--------+ + +------+ | Payer | Benefi | Subscriber | Effect | Phone | Address | Type | | | t Plan | ID | shaista | | | | | | / | | Dates | | | | | | Group | | | | | | + +--------+ +--------+ + +------+ | BLUE CROSS BLUE | BCBS | [phone] | 02/23/19 | [phone] | [address] | PPO | | SHIELD | OUT OF | x | 12-Pre | 8 | [id number] | | | | STATE | | sent | | [place], | | | | | | | | [place] | | | | | | | | [address] | | + +--------+ +--------+ + +------+ + +--------+ +--------+ + + | Guarantor Name | Accoun | Relation to | Date | Phone | Billing Address | | | t Type | Patient | of | | | | | | | | | | + +--------+ +--------+ + + | GONZALODEBORA CAMARGO | Person | Mother | [birth year] | [address] | | | al/Fam | | 1971 | [phone] | [place] [address] | | | rahel | | | 1 (Home) | | + +--------+ +--------+ + + Advance Directives + + + + + | Code Status | Date | Date | Comments | | | Activated | Inactivated | | + + + + + | Full Code | 01/04/2014 | 01/05/2014 | | | | 7:19 AM | 12:11 AM | | + + + + + + + + +---+ | | | | | + + + +---+ | Full Code | 06/19/2011 | 06/22/2011 | | | | 8:58 AM | 5:35 PM | | + + + +---+ + + + +---+ | | | | | + + + +---+ | Full Code | 03/05/2011 | 03/05/2011 | | | | 12:52 PM | 8:13 PM | | + + + +---+
--- OUTSIDE RECORDS SUMMARY | ~2019-02-23 | XMS | Encounter Summary ---
Demographics + + + | Address | [address] | | | [place] [address] | + + + | Home Phone [...] + | Debora Resendiz | ECON | [id number] | | | | | [place] | | | | | [address] | | + + + + + [...] Team Providers + +------+ + | Care Outfitter Cabin Name | Role | Phone | + [...] | | | Griselda | Herminia Yepez [place], | | | | | [facility] | [place] [address] | | | | | [address] [facility] | [phone] | | | | | Mailcode: SUKUMAR | | | | | | Griselda | | | | | | [place], [place] | | | | | | [address] | | | | | | [phone] | | | +--------+ + + + [...]
--- OUTSIDE RECORDS SUMMARY | ~2019-02-23 | XMS | Encounter Summary ---
Demographics + + + | Address | [address] | | | [place] [address] | + + + | Home Phone [...] + + + | Author | [facility] | + + + | Organization | [facility] | + + + | Address | Unknown | + + + | Phone | Unavailable | + + + Support + + + + + | Name | Relationship | Address | Phone | + + + + + | Debora Resendiz | ECON | [address] | | | | | [place] | | | | | [address] | | + + + + + [...] Team Providers + +------+ + | Care Program Advisor Name | Role | Phone | + [...] | | | | | intestine | [place], [place] | [facility] | | | | | ([facility]) | [address] | for Health | | | | | Procedures | Phone: | and Healing, | | | | | BONE DENSITY | [phone] | [address] | | | | | PROCEDURE | Fax: | [place], [place] | | | | | | [phone] | [address] | | | | | | | Phone: | | | | | | | [phone] | | | | | | | Fax: | | | | | | | [phone] | +--------+--------+ + + + + Encounter Details +--------+---------+ + + + | Date | Type | Department | Care Team | Description | +--------+---------+ + + + | 10/18/ | Office | Bone Density at | | Osteoporosis, | | 2012 | Visit | [facility] 1st Floor [address] | | unspecified (Primary | | | | [address] | | Dx); Special | | | | Mailcode: [id number] | | screening for | | | | [facility] | | osteoporosis | | | | and Healing, | | | | | | Building [address] | | | | | | [place], [place] | | | | | | [address] | | | | | | [phone] | | | +--------+---------+ + + + [...] scan images will be scanne d into Air[employer] and will be located in the patient's [...]
--- OUTSIDE RECORDS SUMMARY | ~2019-02-23 | XMS | Encounter Summary ---
Demographics + + + | Address | [address] | | | [place] [address] | + + + | Home Phone [...] Author + + + | Author | [facility] | + + + | Organization | [facility] | + + + | Address | Unknown | + + + | Phone | Unavailable | + + + Support + + + + + | Name | Relationship | Address | Phone | + + + + + | Debora Resendiz | ECON | [address] | | | | | [place] | | | | | [address] | | + + + + + [...] Providers + +------+ + | Care Wire Frame Lamp Shade Maker Name | Role | Phone | [...] | +--------+ + + + + | 01/29/ | Anesthesia | 8S INTRA OP | Marta Rasmussen, | | | 2011 | Event | [place]da | [address] [facility] | | | | | Children's | [facility] | | | | | [facility] | [place], [place] | | | | | Desk Once | [address] | | | | | admitted, go to the | [phone] | | | | | 8th floor Surgical | | | | | | Desk Located at the | | | | | | [facility] [place] [address] | | | | | | [address] [place], | | | | | | [place] [address] | | | +--------+ + + + + Anesthesia Record + + + + + | Procedure Name | Responsible | Anesthesia Start | Anesthesia Stop Time | | | Anesthesiologist | Time | | + + + + + | EGD WITH BIOPSY; | Marta Rasmussen MD | 01/30/12 0938 | 01/30/12 1031 | | specimen x 4 to | | | | | pathology (N/A | | | | | Other) | | | | + + + + + +----+---+ + + | Da | T | Event | Comment | | te | i | | | | | m | | | | | e | | | +----+---+ + + | 12 | 0 | | | | /0 | 9 | | | | 7/ | 3 | | | | 20 | 7 | | | | 12 | | | | +----+---+ + + | | 0 | Pt. Check | Prior to anesthesia start, pt. Identified, examined, chart | | | 9 | | reviewed, PARQ held, anesthetic plan made or approved by | | | 3 | | attending anesthesiologist. NPO status confirmed as appropriate | | | 7 | | for procedure Preoperative evaluation: unchanged | +----+---+ + + | | 0 | An Start | | | | 9 | | | | | 3 | | | | | 8 | | | +----+---+ + + | | 0 | Eq Check | Anesthesia machine checked Equipment verified | | | 9 | | | | | 4 | | | | | 0 | | | +----+---+ + + | | 0 | An Start | | | | 9 | Data | | | | 4 | | | | | 0 | | | +----+---+ + + | | 0 | Ready | | | | 9 | | | | | 4 | | | | | 5 | | | +----+---+ + + | | 0 | Abx held | | | | 9 | Not Ordered | | | | 4 | | | | | 5 | | | +----+---+ + + | | 0 | Timeout | | | | 9 | | | | | 4 | | | | | 5 | | | +----+---+ + + | | 1 | an stop | | | | 0 | data | | | | 2 | | | | | 5 | | | +----+---+ + + | | 1 | Anesthesia | | | | 0 | End | | | | 3 | | | | | 1 | | | +----+---+ + + +------+ | Meds | +------+ + + + | Name | Total | + + + | midazolam | 2 mg | + + + | alfentanil | 1,000 mcg | + + + | propofol INF | 439,085 mcg | + + + | propofol | 100 mg | + + + | LR | 800 mL | + + + + + | Name | + + | O2 Flow Rate (Total Liters) | + + + + | No blood administrations on file. | + + +--------+ + + + | Type | Details | Placement | Removal | +--------+ + + + | RETIRE | 11/21/11; 829; 01/30/12; 1843; | 11/21/11829 by | 01/30/121843 by | | D - | No; 24; Left; Forearm; Positive | Donya Garcia | Discontinued After | | Periph | | [place] | Discharge | | eral | | | | | Line | | | | +--------+ + + + | RETIRE | 01/30/12; 918; 01/30/12; 1200; | 01/30/12918 by | 01/30/12 1200 by | | D - | No; 22; Right; Hand | Estefani Lees RN | Estefani Lees RN | | Periph | | | | | eral | | [...] in this encounter Administered Medications + +--------+ +---------+------+------+ | Medication Order | MAR | Action | Dose | Rate | Site | | | Action | Date | | | | + +--------+ +---------+------+------+ | alfentanil (aka ALFENTA) | Given | 01/30/20 | 250 mcg | | | | injection INTRAPROCEDURE PRN, | | 12 10:00 | | | | | Starting Thu01/30/12 at 0942, | | AM PST | | | | | Until Thu01/30/12 at 1026 | | | | | | + +--------+ +---------+------+------+ +-------+ +---------+---+---+ | Given | 01/30/20 | 250 mcg | | | | | 12 9:55 | | | | | | AM PST | | | | +-------+ +---------+---+---+ | Given | 01/30/20 | 250 mcg | | | | | 12 9:49 | | | | | | AM PST | | | | +-------+ +---------+---+---+ +---+---+ | | | +---+---+ + + + +----+---+---+ | lactated ringers IV | given by | 01/30/20 | mL | | | | INTRAPROCEDURE CONTINUOUS PRN, | | 12 10:31 | | | | | Starting Thu01/30/12 at 0939, | anesthes | AM PST | | | | | Until Thu01/30/12 at 1026 | iology | | | | | + + + +----+---+---+ + + +----+---+---+ | given by anesthesiology | 01/30/20 | mL | | | | | 12 10:30 | | | | | | AM PST | | | | + + +----+---+---+ | New Bag | 01/30/20 | mL | | | | | 12 9:39 | | | | | | AM PST | | | | + + +----+---+---+ +---+---+ | | | +---+---+ + +-------+ +------+---+---+ | midazolam (jose VERSWM) | Given | 01/30/20 | 2 mg | | | | injection INTRAPROCEDURE PRN, | | 12 9:37 | | | | | Starting 01/30/12 at 0937, | | AM PST | | | | | Until 01/30/12 at 1026, | | | | | | | sedation | | | | | | + +-------+ +------+---+---+ +---+---+ | | | +---+---+ + +---------+ + +--------+---+ | propofol (jose POTTER) | New Bag | 01/30/20 | 150 | 57.69 | | | injection INTRAPROCEDURE | | 12 9:56 | mcg/kg/m | mL/hr | | | CONTINUOUS PRN, Starting Fri | | AM PST | in | | | | 01/30/12 at 0942, Until Fri | | | | | | | 01/30/12 at 1026 | | | | | | + +---------+ + +--------+---+ +---------+ + +--------+---+ | New Bag | 01/30/20 | 200 | 76.92 | | | | 12 9:42 | mcg/kg/m | mL/hr | | | | AM PST | in | | | +---------+ + +--------+---+ +---+---+ | | | +---+---+ + +-------+ +--------+---+---+ | propofol INTRAPROCEDURE PRN, | Given | 01/30/20 | 100 mg | | | | Starting 01/30/12 at 0944, | | 12 9:44 | | | | | Until 01/30/12 at 1026 | | AM PST | | | | + +-------+ +--------+---+---+ +---+---+ | | | +---+---+ documented in this encounter"
--- OUTSIDE RECORDS SUMMARY | ~2019-02-23 | XMS | Encounter Summary ---
Demographics + + + | Address | [address] | | | [place] [address] | + + + | Home Phone [...] + | Debora Resendiz | ECON | [address] | | | | | [place] | | | | | [address] | | + + + + + [...] Providers + +------+ + | Care Rn Oncology Research Name | Role | Phone | + [...] | | | | | intestine | [place], [place] | [address] | | | | | ([facility]) | [address] | [facility] | | | | | Procedures | Phone: | Research | | | | | MR | [phone] | Center | | | | | ENTEROGRAPHY | Fax: | [place], [place] | | | | | ABDOMEN AND | [phone] | [address] | | | | | PELVIS WWO | | Phone: | | | | | CONTRAST | | [phone] | | | | | | | Fax: | | | | | | | [phone] | +--------+--------+ + + + + Reason [...] | | | Griselda | Herminia Yepez [place], | | | | | [facility] | [place] [address] | | | | | [address] | [phone] | | | | | Mailcode: CDR | | | | | | [place] | | | | | | [place], [place] | | | | | | [address] | | | | | | [phone] | | | +--------+ + + + [...] as of this encounter Plan of Treatment + +---------+--------+ + + | Name | Type | Priori | Associated Diagnoses | Order Schedule | | | | ty | | | + +---------+--------+ + + | MR ENTEROGRAPHY | Imaging | Routin | Crohn's disease, | Expected: | | ABDOMEN AND PELVIS | | e | small and large | 03/05/2011, Expires: | | [facility] CONTRAST | | | intestine (HCC) | 04/05/2012 | + +---------+--------+ + + documented as of this encounter Visit Diagnoses + + | Diagnosis | + + | Crohn's disease, small and large intestine (HCC) Regional enteritis of small | | intestine with large intestine | + + | Gastric ulcer Gastric ulcer, unspecified as acute or chronic, without mention of | | hemorrhage, perforation, or obstruction | + + documented in this encounter"
--- OUTSIDE RECORDS SUMMARY | ~2019-02-23 | XMS | Encounter Summary ---
Demographics + + + | Address | [address] | | | [place] [address] | + + + | Home Phone [...] + | Debora Resendiz | ECON | [address] | | | | | [place] | | | | | [address] | | + + + + + [...] Team Providers + +------+ + | Care Prop Worker Name | Role | Phone | + +------+ + | Tracey Galeas MD | PCP | Unavailable | + +------+ + Encounter Details +--------+ + + + + | Date | Type | Department | Care Team | Description | +--------+ + + + + | 06/10/ | Documentati | Pediatric | Tania Foster MD | | | 2011 | on | Gastroenterology at | [address] | | | | | Griselda | Herminia Yepez [place], | | | | | [facility] | [place] [address] | | | | | [address] | [phone] | | | | | Mailcode: CDRCP | | | | | | Griselda | | | | | | [place], [place] | | | | | | [address] | | | | | | [phone] | | | +--------+ + + + [...] + + | LAB REPORTS | | 06/11/2011 | | Results for this | | | | 12:00 AM | | procedure are in the | | | | PDT | | results section. | + +--------+ + + + documented in this encounter Results LAB REPORTS (06/11/2011 12:00 AM PDT) + + + | Narrative | Performed At | + + + | | | + + + + + | Transcriptions | + + | Lei Crane - 06/20/2011 10:32 AM PDT | + + documented in this encounter Visit Diagnoses Not on filedocumented in this encounter"
--- OUTSIDE RECORDS SUMMARY | ~2019-02-23 | XMS | Encounter Summary ---
Demographics + + + | Address | [address] | | | [place] [address] | + + + | Home Phone [...] + + + | Author | [facility] | + + + | Organization | [facility] | + + + | Address | Unknown | + + + | Phone | Unavailable | + + + Support + + + + + | Name | Relationship | Address | Phone | + + + + + | Debora Resendiz | ECON | [address] | | | | | [place] | | | | | [address] | | + + + + + [...] Team Providers + +------+ + | Care Granite Polisher Machine Name | Role | Phone | + +------+ + | Tracey Galeas MD | PCP | Unavailable | + +------+ + Reason for Visit +--------+ + | Reason | Comments | +--------+ + | Other | broken metatarsals () | +--------+ + AUTH/CERT +--------+--------+ + + + + | Status | Reason | Specialty | Diagnoses / | Referred By | Referred To | | | | | Procedures | Contact | Contact | +--------+--------+ + + + + | Closed | | | | | [facility] | | | | | [facility] | | | | | | | [address] | | | | | | | Dr | | | | | | | [id number] | | | | | | | [facility] | | | | | | | [place], [place] | | | | | | | [address] Phone: | | | | | | | [phone] | | | | | | | Fax: | | | | | | | [phone] | +--------+--------+ + + + + Encounter Details +--------+ + + + + | Date | Type | Department | Care Team | Description | +--------+ + + + + | 11/09/ | Hospital | [facility] [address] [address] | Rah Constantino MD | | | 2009 | Encounter | [address] | [address] | | | | | [id number] | [address] | | | | | [facility] | [place], [place] | | | | | [facility] | [address] | | | | | [place] [address] | [phone] | | | | | [phone] | | | +--------+ + + + [...] + + + | Blood Pressure | 140/81 | 11/09/2009 6:34 PM | | | | | PDT | | + + + + + | Pulse | 62 | 11/09/2009 6:34 PM | | | | | PDT | | + + + + + | Temperature | 36.3 C (97.3 F) | 11/09/2009 6:34 PM | | | | | PDT | | + + + + + | Respiratory Rate | 16 | 11/09/2009 6:34 PM | | | | | PDT | | + + + + + | Oxygen Saturation | 100% | 11/09/2009 6:34 PM | | | | | PDT | | + + + + + | Inhaled Oxygen | - | - | | | Concentration | | | | + + + + + | Weight | 51.9 kg (114 lb 6.7 | 11/09/2009 11:21 AM | | | | oz) | PDT | | + + + + + | Height | - | - | | + + + + + | Body Mass Index | - | - | | + + + + + documented in this encounter Discharge Instructions Instructions Rah Constantino MD - 11/09/2009[facility] Post Operative Inst ructions: Follow up appointment: You need to be seen in 7-10 days. We have e-mailed our dental hygiene administrative assistant, and she will call you with the follow up appointment. If y ou do not hear from our office, please give us a call or send us an e-mail. Pain Medication: We have prescribed the following medications for pain: tylenol #3 We are prescribing a narcotic pain medicine. For the first few days it is not unusual that your child will need these for pain relief. It is fine to add ibuprofen (over the counter) to help with pain relief but let your child be your guide in giving medication. If they ar e complaining and an appropriate amount of time has gone by, then it is fine to give another dose. If they are not having pain, it is fine to wait. Sometimes narcotic medication will slow down the bowel process. If you are concerned that your child has not had a bowel movement in the last 2-3 days (or if your child is prone to c onstipation) please stop by your local pharmacy or [place] [facility] and miner pick an over the c ounter stool softener. Keep your child well hydrated and this will help. Cast or Splint Care: A cast or splint may have been placed to protect the surgery and allow the bones and muscle s to rest and heal. ICE and Elevation: The first 24 to 48 hours is where we typically see the greatest amount of swelling and pain . This is a good time to be resting with the arm or leg elevated at about the level of the heart. Swelling is made worse by putting the arm or leg in a dependent (below the heart) po sition during this time. Because the splint or cast is wrapped around the extremity, swelling can make a comfortable bandage too tight. If your child is complaining that the wrap is too tight, then please co ntact us right away. It might need to be loosened or in the case of the cast, we might need to split the cast. If the fingers or toes feel cool to the touch and are very different from the opposite side this may also be a dressing that is too tight. Ice is also very good. It even works through the cast. Shower and Bathing: Keep cast clean and dry, cover for baths/showers. Your child may shower in 4 days. It is important to keep the cast/splint in one clean and dry especially if pins were placed . A wet cast increases the risk of infection. If the cast gets wet, you need to call us im mediately, so we can arrange a time to change it. If your child does not have a cast, pleas e keep the dressing dry and clean. We will instruct you on when and if you need to change t he dressing. Contact Information: Please call us if there are any problems or questions. Daytime (8am-5pm) [phone] or [phone]. After hours: [phone] [facility] [phone] Our dental hygiene administrative assistant is Riana Nieto. Her phone number is [phone]. Her e-mail address is: [email or web address]. Remember that there are no trivial questions or concerns. If you are concerned, please rebekah l us or send us an e-mail. Our address: [address] Floor, [place], [address] [place] Website: Please see our website for driving directions, copies of handouts etc. [email or web address] documented in this encounter Plan of Treatment + +------+--------+ + + | Name | Type | Priori | Associated Diagnoses | Order Schedule | | | | ty | | | + +------+--------+ + + | UA DIPSTICK ONLY | Lab | Urgent | | Lab Add Ons for 1 | | | | | | Occurrences starting | | | | | | 11/09/2009 until | | | | | | 11/09/2009 | + +------+--------+ + + documented as of this encounter Procedures + +--------+ + + + | Procedure Name | Priori | Date/Time | Associated Diagnosis | Comments | | | ty | | | | + +--------+ + + + | JEREL LIVINGSTONSTAP ONLY | Routin | 11/09/2009 | | Results for this | | | e | 6:36 PM | | procedure are in the | | | | PDT | | results section. | + +--------+ + + + | URINE, MICROSCOPIC | Routin | 11/09/2009 | | Results for this | | EXAM | e | 6:36 PM | | procedure are in the | | | | PDT | | results section. | + +--------+ + + + | BASIC METABOLIC SET | Urgent | 11/09/2009 | | Results for this | | (NA, K, CL, TCO2, | | 5:03 PM | | procedure are in the | | BUN, CR, GLU, CA) | | PDT | | results section. | + +--------+ + + + | CBC ONLY | Urgent | 11/09/2009 | | Results for this | | | | 5:03 PM | | procedure are in the | | | | PDT | | results section. | + +--------+ + + + | X-RAY PORTABLE FOOT | Routin | 11/09/2009 | | Results for this | | 2 VIEWS LEFT | e | 4:14 PM | | procedure are in the | | | | PDT | | results section. | + +--------+ + + + | X-RAY FLUOROSCOPY > | Routin | 11/09/2009 | | Results for this | | 1 HOUR | e | 4:14 PM | | procedure are in the | | | | PDT | | results section. | + +--------+ + + + | OPERATION RECORD | | 11/09/2009 | | Results for this | | | | 12:00 AM | | procedure are in the | | | | PDT | | results section. | + +--------+ + + + documented in this encounter Results AMY LIVINGSTON (11/09/2009 6:36 PM PDT) + + + + + + | Component | Value | Ref Range | Performed | Pathologist | | | | | At | Signature | + + + + + + | COLOR(UR) | Straw | | [facility] | | | | | | DEPARTMENT | | | | | | OF | | | | | | PATHOLOGY | | + + + + + + | APPEARANCE | Clear | | [facility] | | | | | | DEPARTMENT | | | | | | OF | | | | | | PATHOLOGY | | + + + + + + | GLUCOSE(UR) | Negative | mg/dL | [facility] | | | | | | DEPARTMENT | | | | | | OF | | | | | | PATHOLOGY | | + + + + + + | BILIRUBIN | Negative | | [facility] | | | | | | DEPARTMENT | | | | | | OF | | | | | | PATHOLOGY | | + + + + + + | KETONES | Negative | mg/dL | [facility] | | | | | | DEPARTMENT | | | | | | OF | | | | | | PATHOLOGY | | + + + + + + | SPECIFIC | 1.015 | 1.005 - 1.030 | [facility] | | | GRAVITY | | | DEPARTMENT | | | | | | OF | | | | | | PATHOLOGY | | + + + + + + | BLOOD | Negative | | [facility] | | | | | | DEPARTMENT | | | | | | OF | | | | | | PATHOLOGY | | + + + + + + | PH(UR) | 7.0 | 5.0 - 8.0 | [facility] | | | | | | DEPARTMENT | | | | | | OF | | | | | | PATHOLOGY | | + + + + + + | PROTEIN(LAB | Negative | mg/dL | [facility] | | | ) | | | DEPARTMENT | | | | | | OF | | | | | | PATHOLOGY | | + + + + + + | UROBILINOGE | 0.2 | 0 - 0.2 JAVID | [facility] | | | N | | UNITS | DEPARTMENT | | | | | | OF | | | | | | PATHOLOGY | | + + + + + + | NITRITES | Negative | Negative | [facility] | | | | | | DEPARTMENT | | | | | | OF | | | | | | PATHOLOGY | | + + + + + + | LEUKOCYTE | Negative | Negative | [facility] | | | ESTERASE | | | DEPARTMENT | | | [...] DEPARTMENT OF | [address] | [place] [address] | | | PATHOLOGY | [address] | | | + + + + + URINE, MICROSCOPIC EXAM (11/09/2009 6:36 PM PDT) + +---------+ + + + | Component | Value | Ref Range | Performed | Pathologist | | | | | At | Signature | + +---------+ + + + | SQUAMOUS | None | /hpf | [facility] | | | EPITHELIAL | | | DEPARTMENT | | | | | | OF | | | | | | PATHOLOGY | | + +---------+ + + + | NON-SQUAMOU | None | /hpf | [facility] | | | S EPITH | | | DEPARTMENT | | | | | | OF | | | | | | PATHOLOGY | | + +---------+ + + + | RED CELLS | None | 0 - 3 /hpf | [facility] | | | | | | DEPARTMENT | | | | | | OF | | | | | | PATHOLOGY | | + +---------+ + + + | WHITE CELLS | None | 0 - 5 /hpf | [facility] | | | | | | DEPARTMENT | | | | | | OF | | | | | | PATHOLOGY | | + +---------+ + + + | BACTERIA | Few (A) | /hpf | [facility] | | | | | | DEPARTMENT | | | | | | OF | | | | | | PATHOLOGY | | + +---------+ + + + | MUCOUS | None | /hpf | [facility] | | | | | | DEPARTMENT | | | | | | OF | | | | | | PATHOLOGY | | + +---------+ + + + | HYALINE | None | 0 - 1 /lpf | [facility] | | | CASTS | | | DEPARTMENT | | | | | | OF | | | | | | PATHOLOGY | | + +---------+ + + + | GRANULAR | 0-1 | /lpf | [facility] | | | CASTS | | | DEPARTMENT | | | | | | OF | | | | | | PATHOLOGY | | + +---------+ + + + | CELLULAR | None | /lpf | [facility] | | | CASTS | | | DEPARTMENT | | | | | | OF | | | | | | PATHOLOGY | | + +---------+ + + + | AMORPHOUS | Few (A) | /hpf | [facility] | | | CRYSTALS | | | DEPARTMENT | | | | | | OF | | | | | | PATHOLOGY | | + +---------+ + + + | CALCIUM | None | /hpf | [facility] | | | OXALATE | | | DEPARTMENT | | | ZOHRA | | | OF | | | | | | PATHOLOGY | | + +---------+ + + + | URIC ACID | None | /hpf | [facility] | | | CRYSTALS | | | DEPARTMENT | | | | | | OF | | | | | | PATHOLOGY | | + +---------+ + + + | TRIPLE P04 | None | /hpf | [facility] | | | CRYSTALS | | | DEPARTMENT | | | | | | OF | | | | | | PATHOLOGY | | + +---------+ + + + | YEAST (LAB) | None | /hpf | [facility] | | | | | | DEPARTMENT | | | | | | OF | | | | | | PATHOLOGY | | + +---------+ + + + | TRICHOMONAS | None | /hpf | [facility] | | | | | | DEPARTMENT | | | | | | OF | | | | | | PATHOLOGY | | + +---------+ + + + + + | Specimen | + + | Urine - Urine | + + + + + + + | Performing | Address | City/State/Zipcode | Phone Number | | Organization | | | | + + + + + | [facility]MENT [facility] | [address] | [place] [address] | | | PATHOLOGY | [address] | | | + + + + + CBC ONLY (11/09/2009 5:03 PM PDT) + + + + + + | Component | Value | Ref Range | Performed | Pathologist | | | | | At | Signature | + + + + + + | WHITE CELL | 5.2 | 4.9 - 15.5 K/cu | [facility] | | | COUNT | | mm | DEPARTMENT | | | | | | OF | | | | | | PATHOLOGY | | + + + + + + | RED CELL | 4.58 | 4.50 - 5.30 | [facility] | [...] + + + + | HEMATOCRIT | 35.7 (L) | 37.0 - 49.0 % | [facility] | | | | | | DEPARTMENT | | | | | | OF | | | | | | PATHOLOGY | | + + + + + + | MCV | 77.9 (L) | 80.0 - 96.0 fL | [...] + + + + | RDW | 14.4 | 11.5 - 15.0 % | [facility] | | | | | | DEPARTMENT | | | | | | OF | | | | | | PATHOLOGY | | + + + + + + | PLATELET | 185 | 150 - 400 K/cu | [facility] [...] | + + + + + | [facility] DEPARTMENT OF | [address] | [place] [address] | | | PATHOLOGY | [address] | | | + + + + + BASIC METABOLIC SET (NA, K, CL, TCO2, BUN, CR, GLU, CA) (11/09/2009 5:03 PM PDT) + +---------+ + + + | Component | Value | Ref Range | Performed | Pathologist | | | | | At | Signature | + +---------+ + + + | GLUCOSE, | 136 (H) | 60 - 99 mg/dL | [facility] | | | PLASMA | | | DEPARTMENT | | | (LAB) | | | OF | | | | | | PATHOLOGY | | + +---------+ + + + | BUN, PLASMA | 7 | 6 - 20 mg/dL | [facility] | | | (LAB) | | | DEPARTMENT | | | | | | OF | | | | | | PATHOLOGY | | + +---------+ + + + | CREATININE | 0.56 | 0.46 - 0.81 | [facility] | | | PLASMA | | mg/dL | DEPARTMENT | | | (LAB) | | | OF | | | | | | PATHOLOGY | | + +---------+ + + + | SODIUM, | 138 | 134 - 143 | [facility] | | | PLASMA | | mmol/L | DEPARTMENT | | | (LAB) | | | OF | | | | | | PATHOLOGY | | + +---------+ + + + | POTASSIUM, | 3.9 | 3.4 - 5.0 | [facility] | [...] + + + | TOTAL CO2, | 25 | 23 - 31 mmol/L | [facility] | | | PLASMA | | | DEPARTMENT | | | (LAB) | | | OF | | | | | | PATHOLOGY | | + +---------+ + + + | CALCIUM, | 8.6 | 8.6 - 10.2 | [facility] | [...] | + + + + + | [facility] | [address] | [place] [address] | | | PATHOLOGY | [address] | | | + + + + + X-RAY PORTABLE FOOT 2 VIEWS LEFT (11/09/2009 4:14 PM PDT) + + + + + + | Component | Value | Ref Range | Performed | Pathologist | | | | | At | Signature | + + + + + + | X-RAY | LEFT FOOT TWO VIEWS, | | | | | PORTABLE | INTRAOPERATIVE | | | | | FOOT 2 | INDICATION: Left | | | | | VIEWS LEFT | metatarsal fractures | | | | | | COMPARISON: None | | | | | | IMPRESSION:Intraoperativ | | | | | | e frontal and lateral | | | | | | views coned to the left | | | | | | forefootdepict fractures | | | | | | of the distal | | | | | | metaphyses of the third | | | | | | through | | | | | | fifthmetatarsals. An | | | | | | additional fracture may | | | | | | be present the | | | | | | secondmetatarsal as | | | | | | well. The fourth and | | | | | | fifth metatarsal | | | | | | fractures havebeen | | | | | | stabilized with | | | | | | percutaneous pins. The | | | | | | fifth metatarsal | | | | | | distalfracture fragment | | | | | | is displaced laterally | | | | | | approximately one half | | | | | | shaftwidth. END OF | | | | | | IMPRESSION I have | | | | | | personally viewed this | | | | | | procedure/exam and | | | | | | reviewed this report. | | | | | | Author: GUILLE MOYER, | | | | | | MariReviewer: GUILLE | | | | | | Mari MOYER STATUS | | | | | | FINAL / Dr. HAN | | | | | | ANNIKA FINAL / | | | | | | Dr. GUILLE ROBLERO | | | | | | PRELIMINARY - UNSIGNED / | | | | | | Dr. GUILLE MOYER | | | | + + + + + + + + | Specimen | + + | | + + + +---------+ + + | Performing | Address | City/State/Zipcode | Phone Number | | Organization | | | | + +---------+ + + | [facility] DEPARTMENT OF | | | | | RADIOLOGY | | | | + +---------+ + + X-RAY FLUOROSCOPY > 1 HOUR (11/09/2009 4:14 PM PDT) + + + + + + | Component | Value | Ref Range | Performed | Pathologist | | | | | At | Signature | + + + + + + | FLUOROSCOPY | LEFT FOOT TWO VIEWS, | | | | | > 1 HOUR | INTRAOPERATIVE | | | | | | INDICATION: Left | | | | | | metatarsal fractures | | | | | | COMPARISON: None | | | | | | IMPRESSION:Intraoperativ | | | | | | e frontal and lateral | | | | | | views coned to the left | | | | | | forefootdepict fractures | | | | | | of the distal | | | | | | metaphyses of the third | | | | | | through | | | | | | fifthmetatarsals. An | | | | | | additional fracture may | | | | | | be present the | | | | | | secondmetatarsal as | | | | | | well. The fourth and | | | | | | fifth metatarsal | | | | | | fractures havebeen | | | | | | stabilized with | | | | | | percutaneous pins. The | | | | | | fifth metatarsal | | | | | | distalfracture fragment | | | | | | is displaced laterally | | | | | | approximately one half | | | | | | shaftwidth. END OF | | | | | | IMPRESSION I have | | | | | | personally viewed this | | | | | | procedure/exam and | | | | | | reviewed this report. | | | | | | Author: GUILLE MOYER, | | | | | | MariReviewer: GUILLE | | | | | | Mari MOYER STATUS | | | | | | FINAL / Dr. HAN | | | | | | SUDARSHANUS FINAL / | | | | | | Dr. GUILLE ROBLERO | | | | | | PRELIMINARY - UNSIGNED / | | | | | | Dr. GUILLE MOYER | | | | + + + + + + + + | Specimen | + + | | + + + +---------+ + + | Performing | Address | City/State/Zipcode | Phone Number | | Organization | | | | + +---------+ + + | [facility] DEPARTMENT OF | | | | | RADIOLOGY | | | | + +---------+ + + OPERATION RECORD (11/09/2009 12:00 AM PDT) + + + | Narrative | Performed At | + + + | [id number] | | | [id number] [facility] | | | [id number] Date: | | | 11/09/2009 Attending Surgeon: Rah Posada | | | Mari Constantino Outreach Analyst(s): | | | Naty Mcgee M.D. Preoperative Diagnosis(es): | | | Completely displaced left fourth and fifth metatarsal fractures. | | | Postoperative Diagnosis(es): Completely displaced left fourth and | | | fifth metatarsal fractures. Procedures Performed: Closed | | | reduction and percutaneous pinning of left fourth and fifth | | | metatarsal fractures. Indications: This is a 14-year-old young | | | man who suffered the above-mentioned injury in a football this | | | week. The metatarsal heads are completely displaced dorsally and | | | laterally. I think that this will change the mechanics of his | | | foot eventually. I do not think this will remodel completely, and | | | we discussed either operative versus nonoperative intervention. | | | Risks, goals, and benefits were described of each. Parents wished | | | to proceed with reduction understanding that it will not be perfect | | | but that will get him in a reasonable alignment. Risks were | | | identified and parents understood them and written consent was | | | obtained by me. Procedure: The patient was brought to the | | | operating room and placed under general anesthesia with LMA | | | maintenance of his airway. The left lower extremity was prepped | | | and draped in the usual sterile fashion. We had a surgical pause | | | (timeout team) checking for site, side, location, and patient | | | identification. Once everything was confirmed, we proceeded. We | | | were able to actually get the fifth metatarsal closed and | | | percutaneously pinned through the end of the toe and the same for | | | the fourth. Once this was done, we cut and bent the pins and | | | placed him in a short leg cast. There were no complications of | | | the procedure. Estimated blood loss was minimal. No tourniquet | | | was used. Postoperative Plan: He will be nonweightbearing on | | | the forefoot of the left side, and I will see him back in clinic in | | | 4 weeks following any problems, and at that time, we will remove | | | the cast, take x-rays, and probably remove the pins. | | | Rah Constantino M.D. STACY / ETHAN [id number] / [id number] / [id number] / D: | | | 11/09/2009 | | + + + + + | Procedure Note | + + | Rah Constantino MD - 11/10/2009 8:57 AM PDT [id number] | | [id number] ZACARIAS | | [place] [id number] Date: 11/09/2009 Attending Surgeon: | | Rah Constantino M.D. Outreach Analyst(s): Naty Mcgee, | | Mari Preoperative Diagnosis(es):Completely displaced left fourth and fifth metatarsal | | fractures. Postoperative Diagnosis(es):Completely displaced left fourth and fifth | | metatarsal fractures. Procedures Performed:Closed reduction and percutaneous pinning of | | left fourth and fifthmetatarsal fractures. Indications:This is a 14-year-old young man | | who suffered the above-mentioned injury claude football this week. The metatarsal heads | | are completely displaceddorsally and laterally. I think that this will change the | | mechanics of hisfoot eventually. I do not think this will remodel completely, and | | wediscussed either operative versus nonoperative intervention. Risks, goals,and | | benefits were described of each. Parents wished to proceed withreduction understanding | | that it will not be perfect but that will get himin a reasonable alignment. Risks were | | identified and parents understoodthem and written consent was obtained by me. | | Procedure:The patient was brought to the operating room and placed under | | generalanesthesia with LMA maintenance of his airway. The left lower extremitywas | | prepped and draped in the usual sterile fashion. We had a surgicalpause (timeout team) | | checking for site, side, location, and patientidentification. Once everything was | | confirmed, we proceeded. We were ableto actually get the fifth metatarsal closed and | | percutaneously pinnedthrough the end of the toe and the same for the fourth. Once this | | wasdone, we cut and bent the pins and placed him in a short leg cast. Therewere no | | complications of the procedure. Estimated blood loss was minimal.No tourniquet was | | used. Postoperative Plan:He will be nonweightbearing on the forefoot of the left side, | | and I willsee him back in clinic in 4 weeks following any problems, and at that time,we | | will remove the cast, take x-rays, and probably remove the pins. Rah Constantino, | | TATE / [id number] / [id number] / [id number] / T: 11/09/2009 | |This is a 14-year-old young man who suffered the above-mentioned injury in | |a football this week. The metatarsal heads are completely displaced | |dorsally and laterally. I think that this will change the mechanics of his | |foot eventually. I do not think this will remodel completely, and we | |discussed either operative versus nonoperative intervention. Risks, goals, | |and benefits were described of each. Parents wished to proceed with | |reduction understanding that it will not be perfect but that will get him | |in a reasonable alignment. Risks were identified and parents understood | |them and written consent was obtained by me. | | | | | |Procedure: | |The patient was brought to the operating room and placed under general | |anesthesia with LMA maintenance of his airway. The left lower extremity | |was prepped and draped in the usual sterile fashion. We had a surgical | |pause (timeout team) checking for site, side, location, and patient | |identification. Once everything was confirmed, we proceeded. We were able | |to actually get the fifth metatarsal closed and percutaneously pinned | |through the end of the toe and the same for the fourth. Once this was | |done, we cut and bent the pins and placed him in a short leg cast. There | |were no complications of the procedure. Estimated blood loss was minimal. | |No tourniquet was used. | | | | | |Postoperative Plan: | |He will be nonweightbearing on the forefoot of the left side, and I will | |see him back in clinic in 4 weeks following any problems, and at that time, | |we will remove the cast, take x-rays, and probably remove the pins. | | | | | | | | | |Rah Constantino M.D. | |RJDaja / ETHAN | |[id number] / [id number] / [id number] / | | | | | | | | | | | | | | | | | | | | | + + documented in this encounter Visit Diagnoses Not on filedocumented in this encounter Administered Medications + +--------+ +--------+------+------+ | Medication Order | MAR | Action | Dose | Rate | Site | | | Action | Date | | | | + +--------+ +--------+------+------+ | acetaminophen (aka TYLENOL) | Given | 11/10/19 | 650 mg | | | | suspension drops 650 mg 650 mg, | | 10 1:49 | | | | | oral, PREPROCEDURE PRN, 1 dose, | | PM PDT | | | | | Starting Thu11/09/09 at 1348, | | | | | | | Until Thu11/09/09 at 1349, pain | | | | | | + +--------+ +--------+------+------+ +---+---+ | | | +---+---+ + +-------+ + +---+---+ | acetaminophen-codeine (aka | Given | 11/10/19 | 1 tablet | | | | TYLENOL #3) 300-30 mg 1 dose, | | 10 6:49 | | | | | Starting Thu11/09/09 at 1850, | | PM PDT | | | | | Until Thu11/09/09 at 1849 | | | | | | + +-------+ + +---+---+ +---+---+ | | | +---+---+ + +-------+ +--------+---+---+ | ibuprofen (aka MOTRIN) tablet | Given | 11/10/19 | 400 mg | | | | 1 dose, Starting Thu11/09/09 at | | 10 6:49 | | | | | 1745, Until Thu11/09/09 at 1849 | | PM PDT | | | | + +-------+ +--------+---+---+ +---+---+ | | | +---+---+ + +-------+ +--------+---+---+ | metoclopramide (aka REGLAN) | Given | 11/10/19 | 7.8 mg | | | | injection 1 dose, Starting Thu | | 10 5:52 | | | | | 11/09/09 at 1754, Until Fri | | PM PDT | | | | | 11/09/09 at 1752 | | | | | | + +-------+ +--------+---+---+ +---+---+ | | | +---+---+ + +-------+ +-------+---+---+ | midazolam (aka VERSED) liquid | Given | 11/10/19 | 20 mg | | | | 20 mg 20 mg, oral, PREPROCEDURE | | 10 1:49 | | | | | PRN, 1 dose, Starting Thu11/09/09 | | PM PDT | | | | | at 1348, Until Thu11/09/09 at | | | | | | | 1349, sedation | | | | | | + +-------+ +-------+---+---+ +---+---+ | | | +---+---+ + +-------+ +------+---+---+ | morphine injection 1 dose, | Given | 11/10/19 | 2 mg | | | | Starting Thu11/09/09 at 1758, | | 10 6:03 | | | | | Until Thu11/09/09 at 1803 | | PM PDT | | | | + +-------+ +------+---+---+ +---+---+ | | | +---+---+ documented in this encounter"
--- OUTSIDE RECORDS SUMMARY | ~2019-02-23 | XMS | Encounter Summary ---
Demographics + + + | Address | [address] | | | [place] [address] | + + + | Home Phone [...] Author + + + | Author | [facility] | + + + | Organization | [facility] | + + + | Address | Unknown | + + + | Phone | Unavailable | + + + Support + + + + + | Name | Relationship | Address | Phone | + + + + + | Debora Resendiz | ECON | [address] | | | | | [place] | | | | | [address] | | + + + + + [...] Providers + +------+ + | Care Site Director Name | Role | Phone | [...] + + | 01/04/ | Hospital | [facility] [address] | Tania Foster MD | | | 2014 | Encounter | [address] | [address] | | | | | [id number] | [facility] | | | | | [place] | [place] [address] | | | | | [facility] | [phone] | | | | | [place], [place] [facility] | | | | | | [phone] | | | +--------+ + + + [...] ities tomorrow. Call the Pediatric GI provider net front end developer for urgent matters If you see any of these signs, call the GI office at [phone] (option [phone]) during regular business hours, or the GI provider net front end developer after hours for the following: Increased pain [...] take usual medicines unless told otherwise by [facility]. How to Reach Your GI Provider: Mon-Fri from 8:00-4:30, call GI Office at [phone]. After hours, weekends, & holidays, call [facility] R[facility] Neurology at [phone]; ask to edwards ve the Pediatric GI provider net front end developer paged for urgent patient issues as described above. Results: Biopsy results may take 10 days to come back; we will contact you when we receive the res ults. Assure that our check-in desk has your contact numbers. Please sign up for [employer] in order to receive results faster, if [...] + | [place] COLONOSCOPY, | Routin | 01/04/2014 | | Results for this | | FLEX, W/BIOPSY | e | 9:18 AM | | procedure are in the | | | | PST | | results section. | + +--------+ + + + | [place] UPPER GI | Routin | 01/04/2014 | [...] | + + + + + | [facility] - | [address] | [place] [address] | | | [place] | | | | + + + [...] performed by: [facility] | | | [facility] [employer] [id number] | | | [place] [address] | | | | | + + + + + + + + | Performing | Address | City/State/Zipcode | Phone Number | | Organization | | | | + + + + + | [facility] | | | | + + + + + | [facility] | see below | | | + + + + + [place] UPPER GI ENDOSCOPY,BIOPSY (01/04/2014 9:18 AM [facility])WA COLONOSCOPY, FLEX, W/BIOPSY (01/04 9:18 AM [facility])SURGICAL PATHOLOGY (01/04/2014) + + + + [...] A | | | | | | 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 [...] | + + + + + | [facility] | [address] | [place] [address] | | | PATHOLOGY | [address] | | | + + + + + documented in this encounter Visit Diagnoses Not on filedocumented in this encounter
--- OUTSIDE RECORDS SUMMARY | ~2019-02-23 | XMS | Encounter Summary ---
Demographics + + + | Address | [address] | | | [place] [address] | + + + | Home Phone [...] Author + + + | Author | [facility] | + + + | Organization | [facility] | + + + | Address | Unknown | + + + | Phone | Unavailable | + + + Support + + + + + | Name | Relationship | Address | Phone | + + + + + | Debora Resendiz | ECON | [address] | | | | | [place] | | | | | [address] | | + + + + + [...] Providers + +------+ + | Care Program Aide Name | Role | Phone | + +------+ + | Tracey Galeas MD | PCP | Unavailable | + +------+ + Encounter Details +--------+------+ + + + | Date | Type | Department | Care Team | Description | +--------+------+ + + + | 01/18/ | Lab | [facility] Center at [facility] | | Crohn's disease, | | 2012 | | 7th Floor [address] | | small and large | | | | [address] [place], | | intestine with | | | | [place] [address] | | granuloma in the | | | | [phone] | | colon, severe | | | | | | duodenitis (Primary | | | | | | Dx); High risk | | | | | | medications (not | | | | | | anticoagulants) | | | | | | long-term use | +--------+------+ + + + Social History [...] of this encounter Plan of Treatment + + +--------+ + + | Name | Type | Priori | Associated Diagnoses | Order Schedule | | | | ty | | | + + +--------+ + + | CBC AND AUTO DIFF | Lab - | Routin | Crohn's disease, | Ordered: 01/18/2013 | | | [facility] | e | small and large | | | | Performable | | intestine with | | | | s | | granuloma in the | | | | | | colon, severe | | | | | | duodenitis | | + + +--------+ + + | CBC AND AUTO DIFF | Lab - | Routin | Crohn's disease, | Ordered: 01/18/2013 | | | [facility] | e | small and large | | | | Performable | | intestine with | | | | s | | granuloma in the | | | | | | colon, severe | | | | | | duodenitis | | + + +--------+ + + documented as of this encounter Procedures + +--------+ + + + | Procedure Name | Priori | Date/Time | Associated Diagnosis | Comments | | | ty | | | | + +--------+ + + + | CBC AND AUTO DIFF | Routin | 01/18/2013 | Crohn's disease, | Results for this | | | e | 3:11 PM | small and large | procedure are in the | | | | PST | intestine with | results section. | | | | | granuloma in the | | | | | | colon, severe | | | | | | duodenitis | | + +--------+ + + + | CBC, WITH | Routin | 01/18/2013 | Crohn's disease, | Results for this | | DIFFERENTIAL | e | 3:11 PM | small and large | procedure are in the | | | | PST | intestine with | results section. | | | | | granuloma in the | | | | | | colon, severe | | | | | | duodenitis | | + +--------+ + + + | ALT, PLASMA | Routin | 01/18/2013 | Crohn's disease, | Results for this | | | e | 3:11 PM | small and large | procedure are in the | | | | PST | intestine with | results section. | | | | | granuloma in the | | | | | | colon, severe | | | | | | duodenitis | | + +--------+ + + + | LIVER SET | Routin | 01/18/2013 | Crohn's disease, | Results for this | | (AST,ALT,BILI | e | 3:11 PM | small and large | procedure are in the | | TOTAL,BILI | | PST | intestine with | results section. | | DIRECT,ALK | | | granuloma in the | | | PHOS,ALB,PROT TOTAL) | | | colon, severe | | | | | | duodenitis | | + +--------+ + + + | HEPATITIS B SURFACE | Routin | 01/18/2013 | Crohn's disease, | Results for this | | AB QUANT, SERUM | e | 3:11 PM | small and large | procedure are in the | | | | PST | intestine with | results section. | | | | | granuloma in the | | | | | | colon, severe | | | | | | duodenitis | | + +--------+ + + + | HEPATITIS B SURFACE | Routin | 01/18/2013 | High risk | Results for this | | AB QUANT, SERUM | e | 3:11 PM | medications (not | procedure are in the | | | | PST | anticoagulants) | results section. | | | | | long-term use | | + +--------+ + + + | GGT, PLASMA | Routin | 01/18/2013 | Crohn's disease, | Results for this | | | e | 3:11 PM | small and large | procedure are in the | | | | PST | intestine with | results section. | | | | | granuloma in the | | | | | | colon, severe | | | | | | duodenitis | | + +--------+ + + + | VITAMIN B-12 | Routin | 01/18/2013 | Crohn's disease, | Results for this | | | e | 3:11 PM | small and large | procedure are in the | | | | PST | intestine with | results section. | | | | | granuloma in the | | | | | | colon, severe | | | | | | duodenitis | | + +--------+ + + + documented in this encounter Results VITAMIN D, 25-HYDROXY, SERUM (01/13/2014 11:31 AM PST) + +-------+ + + + | Component | Value | Ref Range | Performed | Pathologist | | | | | At | Signature | + +-------+ + + + | VITAMIN D | 21.7 | 20 - 80 ng/mL | [facility] [...] [facility] | [address] | [place] [address] | | | SERVICES, SPECIAL | [address] | | | | IMM + COAG | | | | + + + + + CBC AND AUTO DIFF (01/18/2013 3:11 PM PST) + + + + + + | Component | Value | Ref Range | Performed | Pathologist | | | | | At | Signature | + + + + + + | WHITE CELL | 6.32 | 4.90 - 15.50 | [facility] | | | COUNT | | K/cu mm | LABORATORY | | | | | | SERVICES, | | | | | | CORE | | + + + + + + | RED CELL | 5.57 (H) | 4.50 - 5.30 | [facility] | | | COUNT | | M/cu mm | LABORATORY | | | | | | SERVICES, | | | | | | CORE | | + + + + + + | HEMOGLOBIN | 13.8 | 13.0 - 16.0 | [facility] | | | | | g/dL | LABORATORY | | | | | | SERVICES, | | | | | | CORE | | + + + + + + | HEMATOCRIT | 43.1 | 37.0 - 49.0 % | [facility] | | | | | | LABORATORY | | | | | | SERVICES, | | | | | | CORE | | + + + + + + | MCV | 77.4 (L) | 80.0 - 96.0 fL | [facility] | | | | | | LABORATORY | | | | | | SERVICES, | | | | | | CORE | | + + + + + + | MCHC | 32.0 (L) | 33.0 - 35.5 | [facility] | | | | | g/dL | LABORATORY | | | | | | SERVICES, | | | | | | CORE | | + + + + + + | RDW SD | 39.8 | 35.1 - 46.3 fL | [facility] | | | | | | LABORATORY | | | | | | SERVICES, | | | | | | CORE | | + + + + + + | PLATELET | 257 | 150 - 400 K/cu | [facility] | | | COUNT | | mm | LABORATORY | | | | | | SERVICES, | | | | | | CORE | | + + + + + + | MPV | 10.0 | 9.7 - 12.3 fL | [facility] [...] + + + + | LYMPHOCYTE | 41.0 | 7.0 - 41.0 % | [facility] | | | % | | | LABORATORY | | | | | | SERVICES, | | | | | | CORE | | + + + + + + | MONOCYTE % | 7.0 | 3.0 - 13.0 % | [facility] | | | | | | LABORATORY | | | | | | SERVICES, | | | | | | CORE | | + + + + + + | EOS % | 1.9 | 0.0 - 6.0 % | [facility] [...] + + + + | IG% | 0.3 | 0.0 - 0.6 % | [facility] | | | | | | LABORATORY | | | | | | SERVICES, | | | | | | CORE | | + + + + + + | NEUTROPHIL | 3.10 | 2.80 - 11.10 | [facility] | | | # | | K/cu mm | LABORATORY | | | | | | SERVICES, | | | | | | CORE | | + + + + + + | LYMPHOCYTE | 2.59 | 0.40 - 3.20 | [facility] | | | # | | K/cu mm | LABORATORY | | | | | | SERVICES, | | | | | | CORE | | + + + + + + | MONOCYTE # | 0.44 | 0.30 - 1.30 | [facility] | [...] + + + + | IG# | 0.02 | 0.00 - 0.03 | [facility] | [...] are not included in the IG count. New | LABORATORY | | methodology and reference ranges for some CBC/Differential analytes in | SERVICES, CORE | | effect on 09/10/12. | | + + + + + + + + | Performing | Address | City/State/Zipcode | Phone Number | | Organization | | | | + + + + + | [facility] | [address] | [place] [address] | | | SERVICES, CORE | [address] | | | + + + + + VITAMIN B-12, SERUM (01/18/2013 3:11 PM PST) [...] | + + + + + | [facility] | [address] | [place] [address] | | | SERVICES, SPECIAL | CRISTIAN [...] + | [facility] - | [address] | [place] [address] | | | [place] | | | [...] + | [facility] | [address] | [place] [address] | | | SERVICES, VENU | CRISTIAN [...] + | [facility] - | [address] | [place] [address] | | | [place] | | | | + + + + + GGT, PLASMA (01/18/2013 3:11 PM PST) + [...] | + + + + + | [facility] | [address] | [place] [address] | | | SERVICES, CORE | CRISTIAN [...] [facility] | [address] | [place] [address] | | | SERVICES, CORE | [address] [...]
--- OUTSIDE RECORDS SUMMARY | ~2019-02-23 | XMS | Encounter Summary ---
Demographics + + + | Address | [address] | | | [place] [address] | + + + | Home Phone | | + + + | Preferred Language | Unknown | + + + | Marital Status | Single | + + + | Hindu Affiliation | NON | + + + [...] + | Debora Resendiz | ECON | [address] | | | | | [place] | | | | | [address] | | + + + + + [...] Team Providers + +------+ + | Care Refrigerator Mover Name | Role | Phone | + +------+ + | Tracey Galeas MD | PCP | Unavailable | + +------+ + Reason for Visit + + + | Reason | Comments | + + + | Infusion | Remicade Order | + + + Encounter Details +--------+ + + + + | Date | Type | Department | Care Team | Description | +--------+ + + + + | 08/19/ | Ssis Developer | Pediatric | Tania Foster MD | | | 2011 | | Gastroenterology at | [address] | | | | | [place] | [place], | | | | | [facility] [place] | [place] [address] | | | | | [address] [place] [address] | [phone] | | | | | Mailcode: [facility] | | | | | | [place] | | | | | | [place], [place] | | | | | | [address] | | | | | | [phone] | | | +--------+ + + + [...]
--- OUTSIDE RECORDS SUMMARY | ~2019-02-23 | XMS | Encounter Summary ---
Demographics + + + | Address | [address] | | | [place] [address] | + + + | Home Phone [...] + + + | Author | [facility] | + + + | Organization | [facility] | + + + | Address | Unknown | + + + | Phone | Unavailable | + + + Support + + + + + | Name | Relationship | Address | Phone | + + + + + | Debora Resendiz | ECON | [address] | | | | | [place] | | | | | [address] | | + + + + + [...] Team Providers + +------+ + | Care Floor Representative Name | Role | Phone | [...] | +--------+ + + + + | 04/19/ | Telephone | Pediatric | Tania Foster MD | Other | | 2013 | | Gastroenterology at | [address] [facility] | | | | | [place] | [facility], | | | | | [facility] | [place] [address] | | | | | [address] | [phone] | | | | | Mailcode: [facility] | | | | | | [place] | | | | | | [place], [place] | | | | | | [address] | | | | | | [phone] | | | +--------+ + + + [...] + | Diagnosis | + + | Vitamin D deficiency - Primary | + + documented in this encounter"
--- OUTSIDE RECORDS SUMMARY | ~2019-02-23 | XMS | Encounter Summary ---
Demographics + + + | Address | [address] | | | [place] [address] | + + + | Home Phone | | + + + | Preferred Language | Unknown | + + + | Marital Status | Single | + + + | Zoroastrian Affiliation | NON | + + + [...] + | Debora Resendiz | ECON | [address] | | | | | [place] | | | | | [address] | | + + + + + [...] Team Providers + +------+ + | Care Pulmonary Physician Name | Role | Phone | + +------+ + | Tracey Galeas MD | PCP | Unavailable | + +------+ + Reason for Visit +--------+ + | Reason | Comments | +--------+ + | Other | diarrhea with blood x1 | +--------+ + Encounter Details +--------+ + + + + | Date | Type | Department | Care Team | Description | +--------+ + + + + | 06/08/ | Telephone | Pediatric | Tania Foster MD | Other (diarrhea with | | 2011 | | Gastroenterology at | [address] [facility] | blood x1) | | | | [place] | [address] [place], | | | | | [facility] | [place] [address] | | | | | [address] | [phone] | | | | | Mailcode: [facility] | | | | | | [place] | | | | | | [place], [place] | | | | | | [address] | | | | | | [phone] | | | +--------+ + + + [...]
--- OUTSIDE RECORDS SUMMARY | ~2019-02-23 | XMS | Encounter Summary ---
Demographics + + + | Address | [address] | | | [place] [address] | + + + | Home Phone [...] + | Debora Resendiz | ECON | [address] | | | | | [place] | | | | | [address] | | + + + + + [...] Team Providers + +------+ + | Care Pulling Unit Operator Name | Role | Phone | + +------+ + | Tracey Galeas MD | PCP | Unavailable | + +------+ + Encounter Details +--------+ + + + + | Date | Type | Department | Care Team | Description | +--------+ + + + + | 09/28/ | Product Safety Administrator | Pediatric | Tania Foster MD | Crohn's disease, | | 2011 | | Gastroenterology at | [address] [facility] | small and large | | | | [place] | [place] [place], | intestine with | | | [facility] | [place] [address] | granuloma in the | | | | [address] | [phone] | colon, severe | | | | Mailcode: [facility] | | duodenitis; High | | | | [place] | | risk medications | | | | [place], [place] | | (not anticoagulants) | | | | [address] | | long-term use | | | | [phone] | | | +--------+ + + + [...] of this encounter Plan of Treatment + +------+--------+ + + | Name | Type | Priori | Associated Diagnoses | Order Schedule | | | | ty | | | + +------+--------+ + + | CBC, WITH | Lab | Routin | Crohn's disease, | Ordered: 09/29/2011 | | DIFFERENTIAL | | e | small and large [...] | | long-term use | | + +------+--------+ + + documented as [...]
--- OUTSIDE RECORDS SUMMARY | ~2019-02-23 | XMS | Encounter Summary ---
Demographics + + + | Address | [address] | | | [place] [address] | + + + | Home Phone [...] + + | Author | [facility] | + + + | Organization | [facility] | + + + | Address | Unknown | + + + | Phone | Unavailable | + + + Support + + + + + | Name | Relationship | Address | Phone | + + + + + | Debora Resendiz | ECON | [address] | | | | | [place] | | | | | [address] | | + + + + + [...] Providers + +------+ + | Care Nuclear Plant Operator Name | Role | Phone [...] | ogy | Abnormal | [place] | [address] | | | | | weight gain | PERMANENTE | Mailcode: | | | | | Anemia, | [place] | [facility] | | | | | unspecified | [address] | [address] | | | | | | [address] | [place], [place] | | | | | | [address] | [address] | | | | | | [place], | Phone: | | | | | | [place] [address] | [phone] | | | | | | | Fax: | | | | | | | [phone] | +--------+ + + + + + Encounter Details +--------+---------+ + + + | Date | Type | Department | Care Team | Description | +--------+---------+ + + + | 03/21/ | Office | Pediatric | Tania Foster MD | Crohn's disease, | | 2011 | Visit | Gastroenterology at | [address] | small and large | | | | [facility] | [address] [place], | intestine (HCC) | | | | [facility] | [place] [address] | (Primary Dx) | | | | [address] [facility] | [phone] | | | | | Mailcode: CDRCP | | | | | | [place] | | | | | | [place], [place] | | | | | | [address] | | | | | | [phone] | | | +--------+---------+ + + + [...] + + + | Blood Pressure | 128/77 | 03/21/2011 10:25 AM | | | | | PST | | + + + + + | Pulse | 81 | 03/21/2011 10:25 AM | | | | | PST [...] + + + + | Weight | 53 kg (116 lb 13.5 | 03/21/2011 10:25 AM | | | | oz) | PST | | + + + + + | Height | 166.5 cm (5' 5.55") | 03/21/2011 10:25 AM | | | | | PST | | + + + + + | Body Mass Index | 19.12 | 03/21/2011 10:25 AM | | | | | PST | | + + + + + documented in this encounter Progress Notes Tania Foster MD - 03/21/2011 2:27 PM PSTNeeds standing orders for imuran set up. Check hep B status - results may be in bin or Deena's desk. May need booster.Electronic ally signed by Tania Landrum MD at 03/21/2011 2:28 PM PSTMuTania weiner MD - 03/21/2011 10: 33 AM PST PEDIATRIC GASTROENTEROLOGY IBD FOLLOW-UP CONSULTATION Jeremias Adames is an 15 y.o. male, who is referred by Tracey Galeas to Pediatric GI [facility] for follow-up consultation for: Patient Active Problem List Diagnoses Weight loss Diarrhea Heartburn Anemia Abdominal pain, acute, right upper quadrant Nausea Crohn's disease, small and large intestine Gastric ulcer Pertinent past history: Recently diagnosed with inflammatory bowel disease. MRE this AM. Results are pending. TPMT is normal. The patient was accompanied by parents. Interpretor used? no Current medicines include: Current Outpatient Prescriptions Medication Sig dicyclomine 20 mg Oral Tablet Take 20 mg by mouth as needed. mesalamine EC 400 mg Oral Tablet, Delayed Release (E.C.) Take 2 Tabs by mouth three bozena es daily. Indications: Crohn's Disease ondansetron 8 mg Oral Tablet Take 8 mg by mouth every twelve hours as needed. predniSONE 10 mg Oral Tablet Take 4 Tabs by mouth once daily. Take in the AM. Taper by 5 mg every Thursday. predniSONE 10 mg Oral Tablet Take 4 Tabs by mouth once daily. Take in the AM. Taper by 5 mg every Thursday Indications: crohn's ranitidine (ZANTAC) 150 mg Oral Tablet Take 1 Tab by mouth two times daily. Changes in Medications since we last saw patient? He is on 35 mg/Am on prednisone. Interval history update: New medical/surgical issues since last visit? no Patient reports today that stools are 1-2/day and normal in consistency. Blood or mucus in the stool? no Urgency? no Abdominal pain? no Nausea? little. Vomiting? no. Energy level is OK. Appetite is good. ROS: Aphthous ulcers? yes Any joint or eye pain? no Any cough or nasal discharge recently? no Any known clotting disorder? no Any recent fever ? no Any skin problems or rash? no Any problems with headaches no Has weight been stable? yes Other GI aspects of ROS noted in the Interval History section above. Musculoskeletal: Negative Cardiovascular: Negative Genitourinary:Negative Neurologic: Negative Social history: Lives with parents. Missing school? no Nutrition: Taking multivitamin? Not yet Calcium intake adequate? yes No Known Allergies Ht 166.5 cm (5' 5.55") (45 %ile), Wt 53 kg (116 lbs 13.5 oz) (47 %ile), Weight for age(%) 46.52%, BMI for age(%) 44.05%, Length for age(%) 45.47%, BP 128/77, Pulse 81, BMI 19.12 kg /(m^2). 44.09% of growth percentile based on BMI-for-age. Examination: Appearance: alert, active and in no [...] signficant cervical or supraclavicular adenopathy Psychiatric- affect - normal Hospital Encounter on 03/21/2011 Component Date Value Range MR ENTEROGRAPHY ABDOMEN AND PELVIS* 03/21/2011 - Value: MRI of the abdomen and pelvis with and without contrast: 03/21/11. Comparison: None. History: History of Crohn's disease and ileitis. Technique: The patient was imaged prone to reduce motion artifact. The following sequences were performed of the abdomen and pelvis using the body coil: coronal 3D bTFE, coronal T2 before and after glucagon, axial T1 WATS, axial bFFE, coronal 2D bFFE, axial T2 KIEL SPIR (pelvis only), post-contrast coronal THRIVE, and post-contrast axial T1 WATS. Intravenous contrast dose: 12 mL Omniscan. Enteric contrast dose: 20 mL/kg Volumen, not fully ingested by patient. Intravenous glucagon also administered (0.5 mg total with half given between series 3 and 4, and half given between pre- and post-contras t sequences). Findings: Abdomen: Visualized portions of liver, pancreas, and spleen are unremarkable. Small accessory spleen noted. Kidneys and adrenal glands are normal in appearance. Small mesenteric lymph nodes, within normal limits for age. Pelvis: Unremarkable urinary bladder. Trace pelvic free fluid. No abscess, fistulae, or perianal inflammation identified. Bowel: Normal small bowel rotation. Mild mural thickening and mucosal hyperenhancement in short segment of terminal ileum, at and just proximal to ileocecal valve. Remainder of small bowel is unremarkable, without wall thickening, hyperenhancement, or stricture. Slight hyperenhancement without mural thickening is present in descending colon. Large amount of fecal matter in right and transverse colon. Impression: 1. Mild mural thickening and mucosal hyperenhancement over short segment of terminal ileum, at and just proximal to ileocecal valve. 2. Slight hyperenhancement without mural thickening in descending colon. Attending Radiologists: Lisa Valenzuela M.D. Author: Lisa Valenzuela M.D. I have personally viewed this procedure/exam, reviewed this report, and made changes to it where appropriate. Final/Electronically signed / Lisa Valenzuela 03/21/2011 11:27 AM Lab results from last GI visit: Lab Results Component Value Date WBC 11.5 03/10/2011 HB 12.2 03/10/2011 HCT 38.7 03/10/2011 PLT 344 03/10/2011 MCV 70.7 03/10/2011 RDW 15.4 03/10/2011 RDW 39.2 03/10/2011 No results found for this basename: ESR Lab Results Component Value Date NA 143 03/10/2011 K 4.0 03/10/2011 CL 106 03/10/2011 BICARB 28 03/10/2011 BUN 7 03/10/2011 CR 0.53 03/10/2011 GLU 88 03/10/2011 CA 8.6 11/09/2009 AST 14 03/10/2011 ALT 12 03/10/2011 TP 6.8 03/10/2011 ALB 4.1 03/10/2011 Assessment : This is a patient with the following conditions: Gastroenterology Problems Crohn's disease, small and large intestine [555.2G] Gastric ulcer [531.90B] Diarrhea [787.91] Heartburn [787.1] Nausea [787.02A] Regarding the inflammatory bowel, patient is doing well clinically on prednisone and Asacol . Await MRE results for small bowel disease info. He has low vit B 12 value, though still normal. Suspect small bowel disease. Also had dif ficulty getting contrast down, perhaps due to partial bowel obstruction due to small bowel d isease. We did not get to the Ileum with scope due to poor prep. Plan: 1. The following medications were changed: Added Imuran - needs the standing orders starting in 3 wk, with metabolites, cbc and cmp. Taper prednisone by 5 mg q week There were no changes made in the remaining listed GI medications. 2. Labs or imaging ordered are listed below, including see note above -Needs standing orde rs for Imuran. 3.. Education: - [email or web address] for info on meds For further information on GI topics, we direct our families to [email or web address] and [email or web address] 4. Health care maintenance Will have Saritha Castro check - believe he needs a hep B booster based on hep B surf antibody neg study. Note: Immunosuppressed patients on Remicade, Humira, Cimzia, chronic steroids, methotrexate , imuran or 6-MP should not have live virus vaccinations , including the nasal flu mist, MMR or Varicella vaccination. 5. Next recommended follow-up in GI clinic: 6 wk MD [facility] [address] [facility] Mailcode: [place] [address] documented in this enco unter Plan of Treatment Not on filedocumented as of this encounter Procedures + +--------+ + + + | Procedure Name | Priori | Date/Time | Associated Diagnosis | Comments | | | ty | | | | + +--------+ + + + | LAB REPORTS | | 03/21/2011 | | Results for this | | | | 12:00 AM | | procedure are in the | | | | PST | | results section. | + +--------+ + + + documented in this encounter Results LAB REPORTS (03/21/2011 12:00 AM PST) + + + | Narrative | Performed At | + + + | | | + + + + + | Transcriptions | + + | Lei Crane - 05/06/2011 10:34 AM PDT | + + documented in this encounter Visit Diagnoses + + | Diagnosis | + + | Crohn's disease, small and large intestine (HCC) - Primary Regional enteritis of | | small intestine with large intestine | + + documented in this encounter
--- OUTSIDE RECORDS SUMMARY | ~2019-02-23 | XMS | Encounter Summary ---
Demographics + + + | Address | [address] | | | [place] [address] | + + + | Home Phone [...] + | Debora Resendiz | ECON | [address] | | | | | [place] | | | | | [address] | | + + + + + [...] Team Providers + +------+ + | Care Credit Union Examiner Name | Role | Phone | + [...] | | | | | [address] | | | | | | | Dr | | | | | | | [id number] | | | | | | | [facility] | | | | | | | [place], [place] | | | | | | | [address] Phone: | | | | | | | [phone] | | | | | | | Fax: | | | | | | | [phone] | +--------+--------+ + + + + Encounter Details +--------+ + + + + | Date | Type | Department | Care Team | Description | +--------+ + + + + | 11/09/ | Hospital | [facility] [address] | Rah Constantino MD | | | 2009 | Encounter | [address] | [address] | | | | | [id number] | [address] | | | | | [facility] | [place], [place] | | | | | [facility] | [address] | | | | | [place] [address] | [phone] | | | | | [phone] | | | +--------+ + + + [...] in 7-10 days. We have e-mailed our assistant at surgery, and she will call you with the [...] please stop by your local pharmacy or [facility] and pickling drum operator an over the c ounter stool softener. [...] are any problems or questions. Daytime (8am-5pm) [phone] or [phone]. After hours: [phone] or [facility] [phone] Our assistant at surgery is Riana Nieto. Her phone number is [phone]. Her e-mail address is: [email or web address] Remember that there are no trivial questions or concerns. If you are concerned, please rebekah l us or send us an e-mail. Our address: 2nd Floor, [place], [address] [place] Website: Please see our website for driving directions, copies of handouts etc. [email or web address] Thanks. MD [email or web address] documented [...] DEPARTMENT OF | [address] | [place] [address] | | | PATHOLOGY | [address] [...] DEPARTMENT OF | [address] | [place] [address] | | | PATHOLOGY | [address] [...] | + + + + + | [facility] DEPARTMENT OF | [address] | [place] [address] | | | PATHOLOGY | [address] [...] | + + + + + | [facility] | [address] | [place] [address] | | | PATHOLOGY | [address] [...] | | + +---------+ + + | [facility] DEPARTMENT OF | | | | | RADIOLOGY | | | | + +---------+ + + OPERATION RECORD (11/09/2009 12:00 AM PDT) + + + | Narrative | Performed At | + + + | [id number] | | | [id number] ZACARIAS BAXTER | | | H [id number] Date: | | | 11/09/2009 Attending Surgeon: Rah Posada | | | Mari Constantino Granite Polisher(s): | | | Naty Mcgee M.D. Preoperative [...] | Rah Constantino M.D. STACY / ETHAN [id number] / [id number] / [id number] / D: | | | 11/09/2009 | | + + + + + | Procedure Note | + + | Rah Constantino MD - 11/10/2009 8:57 AM PDT [id number] | | [id number] ZACARIAS | | [place] [address] Date: 11/09/2009 Attending Surgeon: | | Rah Constantino M.D. Granite Polisher(s): Naty Mcgee, | | Mari Preoperative Diagnosis(es):Completely [...] pins. Rah Constantino, | | TATE / [id number] / [id number] / [id number] / T: 11/09/2009 | |This is a [...] Constantino M.D. | |RJDaja / ETHAN | |[id number] / [id number] / [id number] / | | | | | | [...]
--- OUTSIDE RECORDS SUMMARY | ~2019-02-23 | XMS | Encounter Summary ---
Demographics + + + | Address | [address] | | | [place] [address] | + + + | Home Phone [...] + | Debora Resendiz | ECON | [address] | | | | | [place] | | | | | [address] | | + + + + + | Quang Resendiz | ECON | Unknown | | + + + + + | Vesna Hernnadez | ECON | Unknown | | + + + + + | Pradeep Hyatt | ECON | Unknown | Unavailable | + + + + + | Lonnie Hyatt | ECON | Unknown | Unavailable | + + + + + | Jeremias | ECON | Unknown | | + + + + + Care Team Providers + +------+ + | Care Financial Planning Assistant Name | Role | Phone | [...] | +--------+--------+ + + + + | Denied | | Rheumatology | Diagnoses | Palmer, | [employer] | | | | | Arthralgia | Tania Landrum MD | [address] | | | | | of toe | [address] | [place] | | | | | Procedures | [address] | Loop | | | | | CONSULT TO | Herminia Yepez | Mailcode: | | | | | RHEUMATOLOGY | [place], [place] | [address] | | | | | | [address] | Physician's | | | | | | Phone: | [address], [address] | | | | | | [phone] | Floor | | | | | | Fax: | [place], [place] | | | | | | [phone] | [address] | | | | | | | Phone: | | | | | | | [phone] | | | | | | | Fax: | | | | | | | [phone] | +--------+--------+ + + + + Reason for Visit + + + | Reason | Comments | + + + | Telephone follow-up | pain in toes, diet | + + + Encounter Details +--------+ + + + + | Date | Type | Department | Care Team | Description | +--------+ + + + + | 05/23/ | Telephone | Pediatric | Tania Foster MD | Telephone follow-up | | 2013 | | Gastroenterology at | [address] | (pain in toes, diet) | | | | [place] | [place] Ye[place], | | | | | [facility] | [place] [address] | | | | | [address] | [phone] | | | | | Mailcode: [facility] | | | | | | [place] | | | | | | [place], [place] | | | | | | [address] | | | | | | [phone] | | | +--------+ + + + [...] + | Diagnosis | + + | Arthralgia of toe - Primary Pain in joint, ankle and foot | + + documented in this encounter"
--- OUTSIDE RECORDS SUMMARY | ~2019-02-23 | XMS | Encounter Summary ---
Demographics + + + | Address | [address] | | | [place] [address] | + + + | Home Phone [...] + | Debora Resendiz | ECON | [address] | | | | | [place] | | | | | [address] | | + + + + + [...] Team Providers + +------+ + | Care Engineering Clerk Name | Role | Phone | [...] | ogy | Abnormal | [place] | [address] | | | | | weight gain | PERMANENTE | Mailcode: | | | | | Anemia, | [place] | [facility] | | | | | unspecified | [address] | [address] | | | | | | [address] | [place], [place] | | | | | | [address] | [address] | | | | | | [place], | Phone: | | | | | | [place] [address] | [phone] | | | | | | | Fax: | | | | | | | [phone] | +--------+ + + + + + [...] | | | [facility] | [address] [place], | intestine (HCC) | | | | [facility] | [place] [address] | (Primary Dx) | | | | [address] [facility] | [phone] | | | | | Mailcode: CDRCP | | | | | | [place] | | | | | | [place], [place] | | | | | | [address] | | | | | | [phone] | | | +--------+---------+ + + + [...] MD [facility] [address] [facility] Mailcode: [place] [address] documented in this enco unter Plan of [...]
--- OUTSIDE RECORDS SUMMARY | ~2019-02-23 | XMS | Encounter Summary ---
Demographics + + + | Address | [address] | | | [place] [address] | + + + | Home Phone [...] + | Debora Resendiz | ECON | [address] | | | | | [place] | | | | | [address] | | + + + + + [...] Team Providers + +------+ + | Care Wheel Borer Name | Role | Phone | + [...] | | | [place] | Cristian Yepez [place], | | | | | [facility] | [place] [address] | | | | | [address] | [phone] | | | | | Mailcode: [facility] | | | | | | [place] | | | | | | [place], [place] | | | | | | [address] | | | | | | [phone] | | | +--------+ + + + [...] LABORATORY | [address] | [place] [address] | | | SERVICES, SPECIAL | [address] [...] | + + + + + | [facility] | [address] [facility] | [place] [address] | | | SERVICES, CORE | [address] [...] | | | LABORATORY | | | BAHRAINI | | | SERVICES, | | | [...] + + | [facility] | [address] [facility] | [place] [address] | | | SERVICES, CORE | [address] | | | + + + + + documented in this encounter Visit Diagnoses + + | Diagnosis | + + | Crohn's disease, small and large intestine, other complication - Primary | + + | Adalimumab (Humira) long-term use | + + documented in this encounter"
--- OUTSIDE RECORDS SUMMARY | ~2019-02-23 | XMS | Encounter Summary ---
Demographics + + + | Address | [address] | | | [place] [address] | + + + | Home Phone [...] Author + + + | Author | [facility] | + + + | Organization | [facility] | + + + | Address | Unknown | + + + | Phone | Unavailable | + + + Support + + + + + | Name | Relationship | Address | Phone | + + + + + | Debora Resendiz | ECON | [address] | | | | | [place] | | | | | [address] | | + + + + + [...] Team Providers + +------+ + | Care Stamp Collector Name | Role | Phone | + +------+ + | Tracey Galeas MD | PCP | Unavailable | + +------+ + Encounter Details +--------+ + + + + | Date | Type | Department | Care Team | Description | +--------+ + + + + | 03/14/ | Hospital | Diagnostic Imaging | | No Show | | 2011 | Encounter | Services at [facility] | | | | | | [address] | | | | | | [place] Yepez Mailcode: | | | | | | [address] | | | | | | [facility] | | | | | | [place], [place] | | | | | | [address] | | | | | | [phone] | | | +--------+ + + + [...]
--- OUTSIDE RECORDS SUMMARY | ~2019-02-23 | XMS | Encounter Summary ---
Demographics + + + | Address | [address] | | | [place] [address] | + + + | Home Phone [...] + | Debora Resendiz | ECON | [address] | | | | | [place] | | | | | [address] | | + + + + + [...] Team Providers + +------+ + | Care Health Promoter Name | Role | Phone | + [...] | | | [place] | Herminia Yepez [facility] | | | | | [facility] | [place] [address] | | | | | [address] [facility] | [phone] | | | | | Mailcode: SU[place]AR | | | | | | [place] | | | | | | [place], [place] | | | | | | [address] | | | | | | [phone] | | | +--------+ + + + [...] + | [place] - AIRPORT - | [address] | [place] [address] | | | [place] | | | [...] + + + | [facility] | [address] [facility] | [place] [address] | | | LABORATORIES | [address] | | | + + + + + documented in this encounter Visit Diagnoses Not on filedocumented in this encounter"
--- OUTSIDE RECORDS SUMMARY | ~2019-02-23 | XMS | Encounter Summary ---
Demographics + + + | Address | [address] | | | [place] [address] | + + + | Home Phone [...] + | Debora Resendiz | ECON | [address] | | | | | [place] | | | | | [address] | | + + + + + [...] Team Providers + +------+ + | Care Milieu Counselor Name | Role | Phone | + [...] + + + + | 08/19/ | Dental Hygiene Teacher | Pediatric | Tania Foster MD | | | 2011 | | Gastroenterology at | [address] | | | | | [place] | Herminia Yepez [place], | | | | | [facility] | [place] [address] | | | | | [address] [place] [address] | [phone] | | | | | Mailcode: SUKUMAR | | | | | | [place] | | | | | | [place], [place] | | | | | | [address] | | | | | | [phone] | | | +--------+ + + + [...]
--- OUTSIDE RECORDS SUMMARY | ~2019-02-23 | XMS | Encounter Summary ---
Demographics + + + | Address | [address] | | | [place] [address] | + + + | Home Phone [...] + | Debora Resendiz | ECON | [address] | | | | | [place] | | | | | [address] | | + + + + + [...] Team Providers + +------+ + | Care Wood Grinder Operator Name | Role | Phone | + +------+ + | Tracey Galeas MD | PCP | Unavailable | + +------+ + Encounter Details +--------+ + + + + | Date | Type | Department | Care Team | Description | +--------+ + + + + | 06/01/ | Orders Only | Pediatric | Tania Foster MD | | | 2013 | | Gastroenterology at | [address] | | | | | [place] | Herminia Yepez [place], | | | | | [facility] | [place] [address] | | | | | [address] | [phone] | | | | | Mailcode: CDRCP | | | | | | [place] | | | | | | [place], [place] | | | | | | [address] | | | | | | [phone] | | | +--------+ + + + [...]
--- OUTSIDE RECORDS SUMMARY | ~2019-02-23 | XMS | Encounter Summary ---
Demographics + + + | Address | [address] | | | [place] [address] | + + + | Home Phone [...] + | Debora Resendiz | ECON | [address] | | | | | [place] | | | | | [address] | | + + + + + [...] Team Providers + +------+ + | Care Director Business Development Name | Role | Phone | + [...] | +--------+ + + + + | 12/26/ | Telephone | Pediatric | Tania Foster MD | Other | | 2011 | | Gastroenterology at | [address] [facility] | | | | | [place] | [facility], | | | | | [facility] | [place] [address] | | | | | [address] | [phone] | | | | | Mailcode: [facility] | | | | | | [place] | | | | | | [place], [place] | | | | | | [address] | | | | | | [phone] | | | +--------+ + + + [...]
--- OUTSIDE RECORDS SUMMARY | ~2019-02-23 | XMS | Encounter Summary ---
Demographics + + + | Address | [address] | | | [place] [address] | + + + | Home Phone [...] Author + + + | Author | [facility] | + + + | Organization | [facility] | + + + | Address | Unknown | + + + | Phone | Unavailable | + + + Support + + + + + | Name | Relationship | Address | Phone | + + + + + | Debora Resendiz | ECON | [address] | | | | | [place] | | | | | [address] | | + + + + + [...] Team Providers + +------+ + | Care Electrician Constructor Supervisor Name | Role | Phone | [...] | | | | | Herminia Yepez [place], | | | | | | [place] [address] | | | | | | [phone] | | | | | | | [...]
--- OUTSIDE RECORDS SUMMARY | ~2019-02-23 | XMS | Encounter Summary ---
Demographics + + + | Address | [address] | | | [place] [address] | + + + | Home Phone [...] + | Debora Resendiz | ECON | [address] | | | | | [place] | | | | | [address] | | + + + + + [...] Team Providers + +------+ + | Care Ironworker Apprentice Shop Name | Role | Phone | + [...] | +--------+ + + + + | 02/09/ | Telephone | Pediatric | Tania Foster MD | Test Results | | 2011 | | Gastroenterology at | [address] | | | | | [place] | Herminia Yepez [place], | | | | | [facility] | [place] [address] | | | | | [address] [facility] | [phone] | | | | | Mailcode: SUKUMAR | | | | | | [place] | | | | | | [place], [place] | | | | | | [address] | | | | | | [phone] | | | +--------+ + + + [...]
--- OUTSIDE RECORDS SUMMARY | ~2019-02-23 | XMS | Encounter Summary ---
Demographics + + + | Address | [address] | | | [place] [address] | + + + | Home Phone | | + + + | Preferred Language | Unknown | + + + | Marital Status | Single | + + + | Amish Affiliation | NON | + + + [...] + | Debora Resendiz | ECON | [address] | | | | | [place] | | | | | [address] | | + + + + + [...] Team Providers + +------+ + | Care Summer Nanny Name | Role | Phone | + +------+ + | Srinivas Stephens DO | PCP | | + +------+ + Encounter Details +--------+ + + + + | Date | Type | Department | Care Team | Description | +--------+ + + + + | 04/03/ | Outside | Diagnostic Imaging | Tracey Galeas | | | 2011 | Referral | [facility] | MD Aram | | | | Order | [address] | | | | | | Herm[place] Yepez Mailcode: | | | | | | [address] | | | | | | [facility] | | | | | | [place], [place] | | | | | | [address] | | | | | | [phone] | | | +--------+ + + + [...]
--- OUTSIDE RECORDS SUMMARY | ~2019-02-23 | XMS | Encounter Summary ---
Demographics + + + | Address | [address] | | | [place] [address] | + + + | Home Phone [...] + | Debora Resendiz | ECON | [address] | | | | | [place] | | | | | [address] | | + + + + + [...] Team Providers + +------+ + | Care Interlocking Tower Operator Name | Role | Phone | + +------+ + | Tracey Galeas MD | PCP | Unavailable | + +------+ + Encounter Details +--------+ + + + + | Date | Type | Department | Care Team | Description | +--------+ + + + + | 01/12/ | Junior Accountant | Pediatric | Tania Foster MD | | | 2011 | | Gastroenterology at | [address] | | | | | [place] | Herminia Yepez [place], | | | | | [facility] | [place] [address] | | | | | [address] | [phone] | | | | | Mailcode: CDRCP | | | | | | [place] | | | | | | [place], [place] | | | | | | [address] | | | | | | [phone] | | | +--------+ + + + [...]
--- OUTSIDE RECORDS SUMMARY | ~2019-02-23 | XMS | Encounter Summary ---
Demographics + + + | Address | [address] | | | [place] [address] | + + + | Home Phone [...] + | Debora Resendiz | ECON | [address] | | | | | [place] | | | | | [address] | | + + + + + [...] Team Providers + +------+ + | Care Paper Box Cutter Name | Role | Phone | + +------+ + | Tracey Galeas MD | PCP | Unavailable | + +------+ + Encounter Details +--------+ + + + + | Date | Type | Department | Care Team | Description | +--------+ + + + + | 12/25/ | Documentati | Pediatric | Tania Foster MD | | | 2011 | on | Gastroenterology at | [address] | | | | | [place] | Herminia Yepez [place], | | | | | [facility] | [place] [address] | | | | | [address] | [phone] | | | | | Mailcode: CDRCP | | | | | | [place] | | | | | | [place], [place] | | | | | | [address] | | | | | | [phone] | | | +--------+ + + + [...]
--- OUTSIDE RECORDS SUMMARY | ~2019-02-23 | XMS | Encounter Summary ---
Demographics + + + | Address | [address] | | | [place] [address] | + + + | Home Phone [...] + | Debora Resendiz | ECON | [address] | | | | | [place] | | | | | [address] | | + + + + + [...] Team Providers + +------+ + | Care Mirror Maker Name | Role | Phone | + +------+ + | Srinivas Stephens DO | PCP | | + +------+ + Reason for Visit + + + | Reason | Comments | + + + | Care Coordination | Humira | + + + Encounter Details +--------+ + + + + | Date | Type | Department | Care Team | Description | +--------+ + + + + | 01/12/ | Telephone | Pediatric | Tania Foster MD | Care Coordination | | 2015 | | Gastroenterology at | [address] | (Mark) | | | | [place] | Herminia Yepez [place], | | | | | [facility] | [place] [address] | | | | | [address] | [phone] | | | | | Mailcode: [facility] | | | | | | [place] | | | | | | [place], [place] | | | | | | [address] | | | | | | [phone] | | | +--------+ + + + [...]
--- OUTSIDE RECORDS SUMMARY | ~2019-02-23 | XMS | Encounter Summary ---
Demographics + + + | Address | [address] | | | [place] [address] | + + + | Home Phone [...] + | Debora Resendiz | ECON | [address] | | | | | [place] | | | | | [address] | | + + + + + [...] Team Providers + +------+ + | Care Permanent Waver Name | Role | Phone | + [...] | | | [place] | Herminia Yepez [place], | | | | | [facility] | [place] [address] | | | | | [address] [facility] | [phone] | | | | | Mailcode: SUKUMAR | | | | | | [place] | | | | | | [place], [place] | | | | | | [address] | | | | | | [phone] | | | +--------+ + + + [...]
--- OUTSIDE RECORDS SUMMARY | ~2019-02-23 | XMS | Encounter Summary ---
Demographics + + + | Address | [address] | | | [place] [address] | + + + | Home Phone [...] + | Debora Resendiz | ECON | [address] | | | | | [place] | | | | | [address] | | + + + + + [...] Providers + +------+ + | Care Service Parts Driver Name | Role | Phone | + +------+ + | Tracey Galeas MD | PCP | Unavailable | + +------+ + Reason for Visit +--------+ + | Reason | Comments | +--------+ + | Other | c/o discomfort around anus | +--------+ + Encounter Details +--------+ + + + + | Date | Type | Department | Care Team | Description | +--------+ + + + + | 06/23/ | Telephone | Pediatric | Tania Foster MD | Other (c/o | | 2011 | | Gastroenterology at | [address] | discomfort around | | | | [place] | [address] [place], | anus) | | | | [facility] | [place] [address] | | | | | [address] | [phone] | | | | | Mailcode: [facility] | | | | | | [address] | | | | | | [place], [place] | | | | | | [address] | | | | | | [phone] | | | +--------+ + + + [...]
--- OUTSIDE RECORDS SUMMARY | ~2019-02-23 | XMS | Encounter Summary ---
Demographics + + + | Address | [address] | | | [place] [address] | + + + | Home Phone [...] + | Debora Resendiz | ECON | [address] | | | | | [place] | | | | | [address] | | + + + + + | Quang Resendiz | ECON | Unknown | | + + + + + | Vesna Hernandez | ECON | Unknown | | + + + + + | Pradeep Hyatt | ECON | Unknown | Unavailable | + + + + + | Lonnie Haytt | ECON | Unknown | Unavailable | + + + + + | Jeremias | ECON | Unknown | | + + + + + Care Team Providers + +------+ + | Care Rental Sales Agent Name | Role | Phone | + +------+ + | Tracey Galeas MD | PCP | Unavailable | + +------+ + Reason for Visit +--------+ + | Reason | Comments | +--------+ + | Other | Colon/EGD Prep Instructions | +--------+ + Encounter Details +--------+ + + + + | Date | Type | Department | Care Team | Description | +--------+ + + + + | 01/02/ | Telephone | Pediatric | Tania Foster MD | Other (Colon/EGD | | 2014 | | Gastroenterology at | [address] [facility] | Prep Instructions) | | | | [place] | Herminia Yepez [place], | | | | | [facility] | [place] [address] | | | | | [address] | [phone] | | | | | Mailcode: [facility] | | | | | | [place] | | | | | | [place], [place] | | | | | | [address] | | | | | | [phone] | | | +--------+ + + + [...]
--- OUTSIDE RECORDS SUMMARY | ~2019-02-23 | XMS | Encounter Summary ---
Demographics + + + | Address | [address] | | | [place] [address] | + + + | Home Phone | | + + + | Preferred Language | Unknown | + + + | Marital Status | Single | + + + | Restoration Affiliation | NON | + + + [...] + | Debora Resendiz | ECON | [address] | | | | | [place] | | | | | [address] | | + + + + + [...] Providers + +------+ + | Care Rn Homecare Name | Role | Phone | + [...] | | | | [place] | [facility], | | | | | [facility] | [place] [address] | | | | | [address] [place] [address] | [phone] | | | | | Mailcode: SUKUMAR | | | | | | [place] | | | | | | [place], [place] | | | | | | [address] | | | | | | [phone] | | | +--------+ + + + [...]
--- OUTSIDE RECORDS SUMMARY | ~2019-02-23 | XMS | Encounter Summary ---
Demographics + + + | Address | [address] | | | [place] [address] | + + + | Home Phone [...] + | Debora Resendiz | ECON | [address] | | | | | [place] | | | | | [address] | | + + + + + [...] Team Providers + +------+ + | Care Cloth Seconds Sorter Name | Role | Phone | + +------+ + | Srinivas Stephens DO | PCP | | + +------+ + Encounter Details +--------+------+ + + + | Date | Type | Department | Care Team | Description | +--------+------+ + + + | 12/11/ | Lab | Lab Center at [facility] | | Crohn's disease, | | 2015 | | 7th Floor [address] | | small and large | | | | [address] [place], | | intestine, other | | | | [place] [address] | | complication (HCC); | | | | [phone] | | Adalimumab (Humira) | | | | | | long-term [...] CBC AND AUTO DIFF | Routin | 12/11/2014 | Crohn's disease, | Results for this | | | e | 2:13 PM | small and large | procedure are in the | | | | PDT | intestine, other | results section. | | | | | complication (HCC) | | | | | | Adalimumab (Humira) | | | | | | long-term use | | + +--------+ + + + | CBC, WITH | Routin | 12/11/2014 | Crohn's disease, | Results for this | | DIFFERENTIAL | e | 2:13 PM | small and large | procedure are in the | | | | PDT | intestine, other | results section. | | | | | complication (HCC) | | | | | | Adalimumab (Humira) | | | | | | long-term use | | + +--------+ + + + | VITAMIN D, | Routin | 12/11/2014 | Crohn's disease, | Results for this | | 25-HYDROXY, SERUM | e | 2:13 PM | small and large | procedure are in the | | | | PDT | intestine, other | results section. | | | | | complication (HCC) | | + +--------+ + + + | COMPLETE METABOLIC | Routin | 12/11/2014 | Crohn's disease, | Results for this | | SET | e | 2:13 PM | small and large | procedure are in the | | (NA,K,CL,CO2,BUN,CRE | | PDT | intestine, other | results section. | | AT,GLUC,CA,AST,ALT,B | | | complication (HCC) | | | LAYLA TOTAL,ALK | | | Adalimumab (Humira) | | | PHOS,ALB,PROT TOTAL) | | | long-term use | | + +--------+ + + + | SEDIMENTATION RATE | Routin | 12/11/2014 | Crohn's disease, | Results for this | | | e | 2:13 PM | small and large | procedure are in the | | | | PDT | intestine, other | results section. | | | | | complication (HCC) | | | | | | Adalimumab (Humira) | | | | | | long-term use | | + +--------+ + + + documented in this encounter Results CBC AND AUTO DIFF (12/11/2014 2:13 PM PDT) + + + + + + | Component | Value | Ref Range | Performed | Pathologist | | | | | At | Signature | + + + + + + | WHITE CELL | 4.72 | 4.40 - 11.00 | [facility] | | | COUNT | | K/cu mm | LABORATORY | | | | | | SERVICES, | | | | | | CORE | | + + + + + + | RED CELL | 5.76 | 4.50 - 6.00 | [facility] | | | COUNT | | M/cu mm | LABORATORY | | | | | | SERVICES, | | | | | | CORE | | + + + + + + | HEMOGLOBIN | 15.4 | 13.5 - 17.5 | [facility] | | | | | g/dL | LABORATORY | | | | | | SERVICES, | | | | | | CORE | | + + + + + + | HEMATOCRIT | 46.5 | 41.0 - 53.0 % | [facility] | | | | | | LABORATORY | | | | | | SERVICES, | | | | | | CORE | | + + + + + + | MCV | 80.7 | 80.0 - 96.0 fL | [facility] | | | | | | LABORATORY | | | | | | SERVICES, | | | | | | CORE | | + + + + + + | MCHC | 33.1 | 33.0 - 35.5 | [facility] | | | | | g/dL | LABORATORY | | | | | | SERVICES, | | | | | | CORE | | + + + + + + | RDW SD | 37.1 | 35.1 - 46.3 fL | [facility] | | | | | | LABORATORY | | | | | | SERVICES, | | | | | | CORE | | + + + + + + | PLATELET | 210 | 150 - 400 K/cu | [facility] | | | COUNT | | mm | LABORATORY | | | | | | SERVICES, | | | | | | CORE | | + + + + + + | MPV | 9.7 | 9.7 - 12.3 fL | [facility] [...] + + + + | NEUTROPHIL | 49.1 (L) | 50.0 - 70.0 % | [facility] | | | % | | | LABORATORY | | | | | | SERVICES, | | | | | | CORE | | + + + + + + | LYMPHOCYTE | 39.0 | 18.0 - 42.0 % | [facility] | | | % | | | LABORATORY | | | | | | SERVICES, | | | | | | CORE | | + + + + + + | MONOCYTE % | 8.7 | 3.5 - 9.0 % | [facility] | | | | | | LABORATORY | | | | | | SERVICES, | | | | | | CORE | | + + + + + + | EOS % | 1.7 | 1.0 - 3.0 % | [facility] | | | | | | LABORATORY | | | | | | SERVICES, | | | | | | CORE | | + + + + + + | BASO % | 1.1 | 0.0 - 2.0 % | [facility] | | | | | | LABORATORY | | | | | | SERVICES, | | | | | | CORE | | + + + + + + | IG% | 0.4Comment: Immature | 0.0 - 0.6 % | [...] + + + + | NEUTROPHIL | 2.32 | 1.80 - 7.70 | [facility] | | | # | | K/cu mm | LABORATORY | | | | | | SERVICES, | | | | | | CORE | | + + + + + + | LYMPHOCYTE | 1.84 | 1.00 - 4.80 | [facility] | | | # | | K/cu mm | LABORATORY | | | | | | SERVICES, | | | | | | CORE | | + + + + + + | MONOCYTE # | 0.41 | 0.10 - 0.90 | [facility] | | | | | K/cu mm | LABORATORY | | | | | | SERVICES, | | | | | | CORE | | + + + + + + | EOS # | 0.08 | 0.00 - 0.50 | [facility] | | | | | K/cu mm | LABORATORY | | | | | | SERVICES, | | | | | | CORE | | + + + + + + | BASO # | 0.05 | 0.00 - 0.10 | [facility] | | | | | [...] | included in the neutrophil count. | [place] | + + + + + + + + | Performing | Address | City/State/Zipcode | Phone Number | | Organization | | | | + + + + + | [facility] | [address] | [place] [address] | | | [place] | [address] | | | + + + + + VITAMIN D, 25-HYDROXY, SERUM (12/11/2014 2:13 PM [...] [facility] | [address] | [place] [address] | | | SERVICES, SPECIAL | PARK [...] | + + + + + | [facility] | [address] [facility] | [place] [address] | | | SERVICES, CORE | PARK [...] | | | LABORATORY | | | [place] | | | SERVICES, | | | [...] | + + + + + | [facility] | [address] | [place] [address] | | | SERVICES, CORE | [address] | | | + + + + + documented in this encounter Visit Diagnoses + + | Diagnosis | + + | Crohn's disease, small and large intestine, other complication | + + | Adalimumab (Humira) long-term use | + + documented in this encounter"
--- OUTSIDE RECORDS SUMMARY | ~2019-02-23 | XMS | Encounter Summary ---
Demographics + + + | Address | [address] | | | [place] [address] | + + + | Home Phone [...] + | Debora Resendiz | ECON | [address] | | | | | [place] | | | | | [address] | | + + + + + [...] Providers + +------+ + | Care Director Of Golf Name | Role | Phone | + [...] | | | [place] | Herminia Yepez [place], | | | | | [facility] | [place] [address] | | | | | [address] [place] [address] | [phone] | | | | | Mailcode: CDRSKYE | | | | | | [place] | | | | | | [place], [place] | | | | | | [address] | | | | | | [phone] | | | +--------+ + + + [...]
--- OUTSIDE RECORDS SUMMARY | ~2019-02-23 | XMS | Encounter Summary ---
Demographics + + + | Address | [address] | | | [place] [address] | + + + | Home Phone [...] + | Debora Resendiz | ECON | [address] | | | | | [place] | | | | | [address] | | + + + + + [...] Team Providers + +------+ + | Care Derrick Hand Name | Role | Phone | [...] | | | [place] | Herminia Yepez [place], | | | | | [facility] | [place] [address] | | | | | [address] | [phone] | | | | | Mailcode: CDRCP | | | | | | [place] | | | | | | [place], [place] | | | | | | [address] | | | | | | [phone] | | | +--------+ + + + [...]
--- OUTSIDE RECORDS SUMMARY | ~2019-02-23 | XMS | Encounter Summary ---
Demographics + + + | Address | [address] | | | [place] [address] | + + + | Home Phone | | + + + | Preferred Language | Unknown | + + + | Marital Status | Single | + + + | Samaritan Affiliation | NON | + + + | Race | White | + + + | Ethnic Group | Not or | + + + Author + + + | Author | [facility] | + + + | Organization | [facility] | + + + | Address | Unknown | + + + | Phone | Unavailable | + + + Support + + + + + | Name | Relationship | Address | Phone | + + + + + | Debora Resendiz | ECON | [address] | | | | | [place] | | | | | [address] | | + + + + + [...] Team Providers + +------+ + | Care Donkey Ride Operator Name | Role | Phone | + +------+ + | Tracey Galeas MD | PCP | Unavailable | + +------+ + Reason for Visit +--------+ + | Reason | Comments | +--------+ + | Other | enter lab orders for Remicade | +--------+ + Encounter Details +--------+ + + + + | Date | Type | Department | Care Team | Description | +--------+ + + + + | 06/24/ | Knapsack Sprayer | Pediatric | Tania Foster MD | Crohn's disease, | | 2011 | | Gastroenterology at | [address] [facility] | small and large | | | | [place] | [address] [place], | intestine with | | | | [facility] | [place] [address] | granuloma in the | | | | [address] | [phone] | colon, severe | | | | Mailcode: CDRCP | | duodenitis; | | | | [place] | | Encounter for | | | | [place], [place] | | therapeutic drug | | | | [address] | | monitoring | | | | [phone] | | | +--------+ + + + [...]
--- OUTSIDE RECORDS SUMMARY | ~2019-02-23 | XMS | Encounter Summary ---
Demographics + + + | Address | [address] | | | [place] [address] | + + + | Home Phone [...] + | Debora Resendiz | ECON | [address] | | | | | [place] | | | | | [address] | | + + + + + [...] Team Providers + +------+ + | Care Nsh Teacher Name | Role | Phone | [...] | Gastroenterology at | [address] [facility] | | | | | [place] | Herminia [facility], | | | | | [facility] | [place] [address] | | | | | [address] | [phone] | | | | | Mailcode: [facility] | | | | | | [place] | | | | | | [place], [place] | | | | | | [address] | | | | | | [phone] | | | +--------+ + + + [...]
--- OUTSIDE RECORDS SUMMARY | ~2019-02-23 | XMS | Encounter Summary ---
Demographics + + + | Address | [address] | | | [place] [address] | + + + | Home Phone | | + + + | Preferred Language | Unknown | + + + | Marital Status | Single | + + + | Jehovah'S Witness Affiliation | NON | + + + [...] + | Debora Resendiz | ECON | [address] | | | | | [place] | | | | | [address] | | + + + + + [...] Providers + +------+ + | Care Marine Mechanic Name | Role | Phone | + +------+ + | Tracey Galeas MD | PCP | Unavailable | + +------+ + Encounter Details +--------+ + + + + | Date | Type | Department | Care Team | Description | +--------+ + + + + | 11/09/ | MyChart | Pediatric | Tania Foster MD | RE: bone DEXA | | 2012 | Encounter | Gastroenterology at | [address] | | | | | [place] | Herminia Yepez [place], | | | | | [facility] | [place] [address] | | | | | [address] | [phone] | | | | | Mailcode: CDRCP | | | | | | [place] | | | | | | [place], [place] | | | | | | [address] | | | | | | [phone] | | | +--------+ + + + [...]
--- OUTSIDE RECORDS SUMMARY | ~2019-02-23 | XMS | Encounter Summary ---
Demographics + + + | Address | [address] | | | [place] [address] | + + + | Home Phone [...] + | Debora Resendiz | ECON | [address] | | | | | [place] | | | | | [address] | | + + + + + [...] Providers + +------+ + | Care Cargo Operations Agent Name | Role | Phone | [...] Denied | | Rheumatology | Diagnoses | [place]ang, | [employer] | | | | | Arthralgia | Tania Landrum MD | [address] | | | | | of toe | [address] | [place] | | | | | Procedures | Anam | Loop | | | | | CONSULT TO | Herminia Yepez | Mailcode: | | | | | RHEUMATOLOGY | [place], [place] | [address] | | | | | | [address] | Physician's | | | | | | Phone: | [address], [address] | | | | | | [phone] | Floor | | | | | | Fax: | [place], [place] | | | | | | [phone] | [address] | | | | | | | Phone: | | | | | | | [phone] | | | | | | | Fax: | | | | | | | [phone] | +--------+--------+ + + + + Reason [...] | | | [place] | Herminia Yepez [place], | | | | | [facility] | [place] [address] | | | | | [address] | [phone] | | | | | Mailcode: [facility] | | | | | | [place] | | | | | | [place], [place] | | | | | | [address] | | | | | | [phone] | | | +--------+ + + + [...]
--- OUTSIDE RECORDS SUMMARY | ~2019-02-23 | XMS | Encounter Summary ---
Demographics + + + | Address | [address] | | | [place] [address] | + + + | Home Phone [...] + | Debora Resendiz | ECON | [address] | | | | | [place] | | | | | [address] | | + + + + + [...] Team Providers + +------+ + | Care District Scout Executive Name | Role | Phone | + +------+ + | Tracey Galeas MD | PCP | Unavailable | + +------+ + Encounter Details +--------+ + + + + | Date | Type | Department | Care Team | Description | +--------+ + + + + | 01/12/ | Rn Clinical Resource | Pediatric | Tania Foster MD | | | 2011 | | Gastroenterology at | [address] | | | | | [place] | Herminia Yepez [place], | | | | | [facility] | [place] [address] | | | | | [address] | [phone] | | | | | Mailcode: CDRCP | | | | | | [place] | | | | | | [place], [place] | | | | | | [address] | | | | | | [phone] | | | +--------+ + + + [...]
--- OUTSIDE RECORDS SUMMARY | ~2019-02-23 | XMS | Encounter Summary ---
Demographics + + + | Address | [address] | | | [place] [address] | + + + | Home Phone [...] + | Debora Resendiz | ECON | [address] | | | | | [place] | | | | | [address] | | + + + + + [...] Team Providers + +------+ + | Care Ocular Pathologist Name | Role | Phone | + +------+ + | Tracey Galeas MD | PCP | Unavailable | + +------+ + Encounter Details +--------+ + + + + | Date | Type | Department | Care Team | Description | +--------+ + + + + | 05/26/ | Abstract | Pediatric | Tania Fostre MD | | | 2011 | | Gastroenterology at | [address] | | | | | [place] | [facility] | | | | | [facility] | [place] [address] | | | | | [address] [facility] | [phone] | | | | | Mailcode: [place] | | | | | | [place] | | | | | | [place], [place] | | | | | | [address] | | | | | | [phone] | | | +--------+ + + + [...] + | CBC, WITH | Routin | 05/25/2011 | | Results for this | | DIFFERENTIAL | e | 2:17 PM | | procedure are in the | | | | PDT | | results section. | + +--------+ + + + | LIVER SET | Routin | 05/25/2011 | | Results for this | | (AST,ALT,BILI | e | 2:17 PM | | procedure are in the | | TOTAL,BILI | | PDT | | results section. | | DIRECT,ALK | | | | | | PHOS,ALB,PROT TOTAL) | | | | | + +--------+ + + + | SEDIMENTATION RATE | Routin | 05/25/2011 | | Results for this | | | e | 2:17 PM | | procedure are in the | | | | PDT | | results section. | + +--------+ + + + | GGT, PLASMA | Routin | 05/25/2011 | | Results for this | | | e | 2:17 PM | | procedure are in the | | | | PDT | | results section. | + +--------+ + + + documented in this encounter Results GGT, PLASMA (05/25/2011 2:17 PM PDT) + +--------+ + + + | Component | Value | Ref Range | Performed | Pathologist | | | | | At | Signature | + +--------+ + + + | GAMMA | 18 (A) | 100 - 390 U/L | [facility] | | | GLUTAMYL | | | [facility] - | | | TRANS | | | [place] | | + +--------+ + + + + + | Specimen | + + | Blood - Blood | + + + + + + + | Performing | Address | City/State/Zipcode | Phone Number | | Organization | | | | + + + + + | [facility] - | [address] | [place] [address] | | | [place] | | | | + + + + + LIVER SET (AST,ALT,BILI TOTAL,BILI DIRECT,ALK PHOS,ALB,PROT TOTAL) (05/25/2011 2:17 PM PDT ) + +-------+ + + + | Component | Value | Ref Range | Performed | Pathologist | | | | | At | Signature | + +-------+ + + + | BILIRUBIN | 0.2 | <1.2 | [facility] - | | | TOTAL | | Transcutaneous | AIRPORT - | | | | | Bilirubinometer | [place] | | + +-------+ + + + | ALK PHOS | 181 | 100 - 390 U/L | [facility] [...] + + | BILIRUBIN | <0.1 | <0.4 mg/dL | [facility] - | | | DIRECT | | | [facility]PORT - | | | | | | [place] | | + +-------+ + + + | ALBUMIN, | 4.3 | 3.40 - 5.20 | [facility] - | | | PLASMA | | g/dL | AIRPORT - | | | (LAB) | | | [place] | | + +-------+ + + + | AST(SGOT) | 15 | 5 - 43 U/L | [facility] - | | | | | | AIRPORT - | | | | | | [place] | | + +-------+ + + + | ALT (SGPT) | 9 (A) | 10 - 58 U/L | [facility] [...] + | [facility] - | [address] | [place] [address] | | | [place] | | | | + + + + + SEDIMENTATION RATE (05/25/2011 2:17 PM PDT) + +-------+ + + + | Component | Value | Ref Range | Performed | Pathologist | | | | | At | Signature | + +-------+ + + + | ESR (SED | 10 | 21 | [facility] - | | | RATE) [...] + | [facility] | [address] | [place] [address] | | | [place] | | | | + + + + + CBC, WITH DIFFERENTIAL (05/25/2011 2:17 PM PDT) + + + + + + | Component | Value | Ref Range | Performed | Pathologist | | | | | At | Signature | + + + + + + | WHITE CELL | 11.8 (A) | 4.0 - 10.5 K/cu | [facility] - | | | COUNT | | mm | AIRPORT - | | | | | | [place] | | + + + + + + | RED CELL | 5.91 (A) | 4.0 - 5.50 M/cu | [facility] - | | | COUNT | | mm | AIRPORT - | | | | | | [place] | | + + + + + + | HEMOGLOBIN | 13.3 | 13.0 - 17.0 | [facility] | | | | | g/dL | AIRPORT - | | | | | | [place] | | + + + + + + | HEMATOCRIT | 41.8 | 37.0 - 50.0 % | [facility] [...] + + + + | MCH | 22.5 (A) | 28.0 - 35.0 pg | [facility] - | | | | | | AIRPORT - | | | | | | [place] | | + + + + + + | MCHC | 31.8 | 31.0 - 36.5 | [facility] | | | | | g/dL | AIRPORT - | | | | | | [place] | | + + + + + + | PLATELET | 415 (A) | 140 - 375 K/cu | [facility] - | | | COUNT | | mm | [facility] - | | | | | | [place] | | + + + + + + | NEUTROPHIL | 55.0 | % | [facility] - | | | % | | | [facility]PORT - | | | | | | [place] | | + + + + + + | LYMPHOCYTE | 6.0 | % | [facility] - | | | % | | | AIRPORT - | | | | | | [place] | | + + + + + + | MONOCYTE % | 4.0 | % | [facility] - | | | | | | AIRPORT - | | | | | | [place] | | + + + + + + | BANDS % | 34.0 | % | [facility] - | | | | | | AIRPORT - | | | | | | [place] | | + + + + + + | BASO % | 1.0 | % | [facility] - | | | | | | AIRPORT - | | | | | | [place] | | + + + + + + | RDW | 16.7 (A) | 11.0 - 14.5 % | [facility] - | | | | | | AIRPORT - | | | | | | [place] | | + + + + + + | MPV | 8.9 | 8.6 - 12.0 fL | [facility] - | | | | | | AIRPORT - | | | | | | [place] | | + + + + + + | NEUTROPHIL | 6.49 | 1.80 - 8.30 | [facility] | | | # | | K/cu mm | AIRPORT - | | | | | | [place] | | + + + + + + | LYMPHOCYTE | 0.71 (A) | 1.0 - 4.80 K/cu | [facility] | | | # | | mm | AIRPORT - | | | | | | [place] | | + + + + + + | MONOCYTE # | 0.47 | 0.0 - 0.90 K/cu | [facility] | | | | | mm | [facility]PORT - | | | | | | [place] | | + + + + + + | BANDS # | 4.01 | | [facility] | | | | | | AIRPORT - | | | | | | [place] | | + + + + + + | BASO # | 0.12 | 0.0 - 0.20 | [facility] - | | | | | | AIRPORT - | | | | | | [place] | | + + + + + + | ELLIPTOCYTE | 1+ | | [facility] - | | | S | | | AIRPORT - | | | | | | [place] | | + + + + + + | ALKALINE | occastional Myelocyte | U/L | [facility] - | | | PHOS, OTHER | seen on scan | | [facility] - | | | CALC | | | [place] | | + + + + + + + + | Specimen | + + | Blood - Blood | + + + + + + + | Performing | Address | City/State/Zipcode | Phone Number | | Organization | | | | + + + + + | [facility] - | [address] | [place] [address] | | | [place] | | | | + + + + + documented in this encounter Visit Diagnoses Not on filedocumented in this encounter"
--- OUTSIDE RECORDS SUMMARY | ~2019-02-23 | XMS | Encounter Summary ---
Demographics + + + | Address | [address] | | | [place] [address] | + + + | Home Phone [...] + | Debora Resendiz | ECON | [address] | | | | | [place] | | | | | [address] | | + + + + + [...] Team Providers + +------+ + | Care Baby Stroller Rental Clerk Name | Role | Phone | [...] Required | ogy | enteritis of | OL[place] | [address] | | | | | small | PERMANENTE | Mailcode: | | | | | intestine | [place] | [facility] | | | | | with large | [address] | [address] | | | | | intestine | [address] | [place], [place] | | | | | ([facility]) | [address] | [address] | | | | | Encounter | MONITOR, | Phone: | | | | | for | [place] [address] | [phone] | | | | | long-term | | Fax: | | | | | (current) | | [phone] | | | | | use of other | | | | | | | medications | | | +--------+ + + + + + Encounter Details +--------+---------+ + + + | Date | Type | Department | Care Team | Description | +--------+---------+ + + + | 01/13/ | Office | Pediatric | Tania Foster MD | Crohn's disease, | | 2013 | Visit | Gastroenterology at | [address] [facility] | small and large | | | | [place] | [facility] [place], | intestine, without | | | | [facility] | [place] [address] | complications (HCC) | | | | [address] | [phone] | (Primary Dx) | | | | Mailcode: [facility] | | | | | | [place] | | | | | | [place], [place] | | | | | | [address] | | | | | | [phone] | | | +--------+---------+ + + + [...] + + + | Blood Pressure | 121/82 | 01/13/2014 10:54 AM | | | | | PST | | + + + + + | Pulse | 76 | 01/13/2014 10:54 AM | | | | | PST [...] + + + + | Weight | 75.3 kg (166 lb 0.1 | 01/13/2014 10:54 AM | | | | oz) | PST | | + + + + + | Height | 176.9 cm (5' 9.65") | 01/13/2014 10:54 AM | | | | | PST | | + + + + + | Body Mass Index | 24.06 | 01/13/2014 10:54 AM | | | | | PST | | + + + + + documented in this encounter Patient Instructions Patient Instructions Tania Foster MD - 01/13/2014 11:16 AM PSTIt was nice to see you in t he clinic today! Our plan: 1. Be sure you are signed up for [place] if you have a computer at home online. 2. Take your antibiotics 3. Hold on calcium for few months 4. Labs today Follow-up: Please schedule your next GI visit [...] check out excellent online websites such as: [email or web address] [email or web address] [email or web address] [email or web address]/GI [email or web address] for information on food allergies IFFGD for functional gastrointestinal disorders For Liver Diseases: AASLD [employer] offer excellent information. For Crohn's or ulcerative colitis information, CCFA.org is a great website. Great YOUTUBE ON IBD MEDS: http://www.MeetMe, Inc.d.com/en/understanding-ibd/nvwiemuafpysd-dnz-mmbmj-gob-kmbxmeej-hg-ibd-t herapies.html Results of tests: Results of laboratory tests, biopsies or Xrays will be sent to you by [facility]. Please ask at the desk officer for the code and instructions on how to sign up for this. If you do not have internet access, results will be sent by mail. Questions: If you have non-urgent questions, please send through [facility]. For urgent questions, please call the [facility] GI office at [phone]. documented in this encounter Progress Notes Tania Foster MD - 01/13/2014 11:08 AM PST PEDIATRIC GASTROENTEROLOGY IBD CONSULTATION for ONGOING MANAGEMENT Jeremias Adames is an 18 y.o. male, who is referred by Tracey Galeas to Pediatric GI Cli vivi accompanied by mother and grandmother, for follow-up consultation for chief complaint [...] for which there was an adverse reaction: thiopurines Current medicines include: Current Outpatient Prescriptions Medication Sig adalimumab (HUMIRA) 40 mg/0.8 mL Subcutaneous Kit 2 injections (80 mg) sub Q on October 18, 2012 as instructed, then 40 mg injection every 2 wk thereafter. Please take a Zyrtec 10 mg tab and 500 mg of Tylenol po 30 min before injecting medicine. Indications: CROHN'S DISEASE cholecalciferol, Vitamin D3, 1,000 unit oral tablet Take 2 tablets by mouth once daily. Indications: VITAMIN D DEFICIENCY clarithromycin (BIAXIN) 500 mg oral tablet Take 1 tablet by mouth every twelve hours. Mesalamine (LIALDA) 1.2 g oral tablet,delayed release (DR/EC) Take 2 tablets by mouth o nce daily. Indications: CROHN'S DISEASE metroNIDAZOLE (FLAGYL) 500 mg oral tablet Take 1 tablet by mouth every eight hours. Torres e before and after school, and just before bed. Do not drink any alcohol or you will vomit. MULTIVITAMIN ORAL Take by mouth. Take 1 [...] in Medications since we last saw patient? Started antibiotics for h. pylori Interval history update: Patient reports today that stools are 1/day and formed in consistency. Blood or mucus in the stool? no Urgency? no Abdominal pain? no Nausea? no. Vomiting? no. Energy level is low. Appetite is normal. New medical/surgical issues since last visit? H. pylori ROS: Aphthous ulcers? no Any joint or eye pain? no Any cough or nasal discharge recently? no Any known clotting disorder? no Any recent fever ? no Any skin problems or rash? no Has weight been stable? yes GI aspects of ROS noted in the Interval History section above. Cardiovascular: Negative Genitourinary:Negative Neurologic: Negative Social history: Lives with grandmother. Missing school? good Medication compliance estimate good Nutrition: Taking multivitamin? yes Calcium intake adequate? Hold on calcium until Conner's day. No Known Allergies Ht 1.769 m (5' 9.65") (57%, Z = 0.17), Wt 75.3 kg (166 lb 0.1 oz) (78%, Z = 0.78), BP 121/8 2, Pulse 76, BMI 24.06 kg/(m^2). 78%ile (Z=0.78) based on CDC 2-20 Years BMI-for-age data. [...] plan Lab results from last GI visit: Hospital Encounter on 01/02/2014 Component Date Value Range SOURCE, TISSUE 01/09/2014 Duodenum - LACTASE, TISSUE (uM/min/gm prot) 01/09/2014 11.0* 15.0-45.5 SUCRASE, TISSUE (uM/min/gm prot) 01/09/2014 42.5 25.0-69.9 MALTASE, TISSUE (uM/min/gm prot) 01/09/2014 99.3* 100.0-224.4 PALATINASE, TISSUE (uM/min/gm prot) 01/09/2014 11.0 5.0-26.3 CLOTEST INTERPRETATION 01/04/2014 CLOtest POSITIVE* - Consistent with the presence of Helicobacter pylori. SURGICAL PATHOLOGY 01/07/2014 - Value: SOURCE OF SPECIMEN:A Duodenum SOURCE OF SPECIMEN:B Antrum SOURCE OF SPECIMEN:C Gastric body SOURCE OF SPECIMEN:D Distal esophagus SOURCE OF SPECIMEN:E Mid esophagus SOURCE OF SPECIMEN:F Terminal ileum SOURCE OF SPECIMEN:G Right colon SOURCE OF SPECIMEN:H Transverse colon SOURCE OF SPECIMEN:I Left colon SOURCE OF SPECIMEN:J Rectosigmoid Final Pathologic Diagnosis: A: Duodenum, biopsy: - Duodenal mucosa with no diagnostic abnormality B: Antrum, biopsy: - Chronic gastritis - Helicobacter-like organisms identified by immunohistochemistr y C: Gastric body, biopsy: - Chronic, mildly active gastritis D: Distal esophagus, biopsy: - Squamous mucosa with no diagnostic abnormality E: Mid esophagus, biopsy: - Squamous mucosa with no diagnostic abnormality F: Terminal ileum, biopsy: - Small intestinal mucosa with no diagnostic abnormality G: Right colon, biopsy: - Colonic mucosa with minimal chronic architectural changes (se e comment) H: Transverse colon, biopsy: - Colonic mucosa with minimal chronic architectural changes I: Left colon, biopsy: - Colonic mucosa with minimal chronic architectural changes J: Rectosigmoid, biopsy: - Colonic mucosa with minimal chronic architectural changes Comment: The colon biopsies demonstrate very mild and variable architectural changes with occasional benign appearing lymphoid aggr egates. There is no evidence of active colitis, granulomas, or dysplasia. T he features are consistent with treated inflammatory bowel disease. Bi opsies from the stomach demonstrate chronic gastritis with focal active inflammation. A insurance claim representative block (B1) is positive for Helicobacter-like organisms by immunohistochemistry. Case seen by: Shwetha Sosa M.D./Surgical Pathology Resident Torin Robert M.D./Pathologist :[place] (Analyte specific reagents are used in many laboratory tests necessa ry for standard medical care. This test was developed and its performance characteristics determine by [facility]. It has not been nan ared or approved by the US Food and Drug Administration (FDA). FDA does not require this test to go through premarket FDA review. This test is used for clinical purposes. It should not be regarded as investigational or for research. This laboratory is certified under the Clinical Laborator y Improvement Amendments (CLIA) as qualified to perform high complexit y clinical laboratory testing). Clinical History: The patient is a 18-year-old male with clinical history of inflammat ory bowel disease. EGD demonstrates some erythema without in the stomac h, as well as vascular markings within the distal rectum. Gross Description: Received are 10 specimens in formalin in containers labeled with the patient's name (initials LESTER) and: A: Duodenum: Received in formalin are multiple fragments of bose, s oft tissue, measuring 1 x 0.8 x 0.3 cm in aggregate. The entire specime n is submitted. B: Antrum: Received in formalin are 2 fragments of bose, soft tissu e, measuring 0.6 x 0.4 x 0.3 cm in aggregate. The entire specimen is submitted. C: Gastric body: Received in formalin are 2 fragments of bose, soft tissue, measuring 0.5 x 0.3 x 0.3 cm in aggregate. The entire speci men is submitted. D: Distal esophagus: Received in formalin are 2 fragments of bose, soft tissue, measuring 0.4 x 0.4 x 0.2 cm in aggregate. The entire speci men is submitted. E: Mid esophagus: Received in formalin is 1 fragment of bose, soft tissue, measuring 0.3 x 0.3 x 0.2 cm in aggregate. The entire specimen is submitted. F: Terminal ileum: Received in formalin are multiple fragments of bose, soft tissue, measuring 0.8 x 0.7 x 0.3 cm in aggregate. The entire specimen is submitted. G: Right colon: Received in formalin are 3 fragments of bose, soft tissue, measuring 0.7 x 0.6 x 0.3 cm in aggregate. The entire specimen is submitted. H: Transverse colon: Received in formalin are 3 fragments of bose, soft tissue, measuring 0.7 x 0.6 x 0.3 cm in aggregate. The entire speci men is submitted. I: Left colon: Received in formalin is 1 fragment of bose, soft tis jamal, measuring 0.3 x 0.3 x 0.2 cm in aggregate. The entire specimen is submitted. J: Rectosigmoid: Received in formalin are 4 fragments of bose, soft tissue, measuring 0.8 x 0.7 x 0.3 cm in aggregate. The entire speci men is submitted. Cassette Index: A: Duodenum: A1 B: Antrum: B1 C: Gastric body: C1 D: Distal esophagus: D1 E: Mid esophagus: E1 F: Terminal ileum: F1 G: Right colon: G1 H: Transverse colon: H1 I: Left colon: I1 J: Rectosigmoid: J1 AMJefferson/[place] My electronic signature indicates that I have personally reviewed al l diagnostic slides, the gross and/or microscopic portion of this report and formulated the final diagnosis. Rendering Diagnostician: Torin Robert M.D. Pathologist Electronically Signed 01/07/2014 10:26AM Assessment & Plan : This is a [...] under good control. The disease activity is mild in his colon. 2. H. Pylori - started Rx. Will check stool antigen if symptoms do not improve. Medications changed today: none Nutrition support: We recommend a multivitamin, folic acid, and calcium supplement. It is important for patients with Crohn's to have adequate vitamin D and calcium intake. Health care maintenance: Vaccinations. Patient should have flu shot every fall. No live virus vaccinations for our patients on immunosuppressive medications We encourage HPV vaccination in age appropriate children Psychosocial or economic challenges affecting patient's medical care delivery: lives with g randmother Co-morbidities that would affect sedation risk: none An after visit summary was given to the family. In this 28 minute clinic visit I spent at least 50% of the time in [id number] patient edu cation, medical care delivery and in care coordination. TANIA FOSTER MD [facility] AT [address] Mailcode: [place] [id number] Lab on 01/13/2014 Component Date Value Range GLUCOSE, PLASMA (LAB) (mg/dL) 01/13/2014 82 60-99 [...] IMMATURE GRANULOCYTE# (K/cu mm) 01/13/2014 0.01 0.00-0.03 documented in this enco unter Plan of Treatment Not on filedocumented as of this encounter Results SEDIMENTATION RATE (01/13/2014 11:31 AM PST) + +-------+ + [...] | + + + + + | [facility] | [address] [facility] | [place] [address] | | | SERVICES, CORE | [address] | | | + + + + + COMPLETE METABOLIC SET (NA,K,CL,CO2,BUN,CREAT,GLUC,CA,AST,ALT,BILI TOTAL,ALK PHOS,ALB,PROT TOTAL) (01/13/2014 11:31 AM PST) + +---------+ + + + | Component | Value | Ref Range | Performed | Pathologist | | | | | At | Signature | + +---------+ + + + | GLUCOSE, | 82 | 60 - 99 mg/dL | [facility] | | | PLASMA | | | LABORATORY | | | (LAB) | | | SERVICES, | | | | | | CORE | | + +---------+ + + + | BUN, PLASMA | 9 | 6 - 20 mg/dL | [facility] [...] +---------+ + + + | CHLORIDE, | 106 | 97 - 108 mmol/L | [facility] [...] +---------+ + + + | CALCIUM, | 8.8 | 8.6 - 10.2 | [facility] | [...] + + + | ALK PHOS | 111 | 55 - 220 U/L | [facility] | | | | | | LABORATORY | | | | | | SERVICES, | | | | | | CORE | | + +---------+ + + + | AST(SGOT) | 12 (L) | 15 - 41 U/L | [facility] | | | | | | LABORATORY | | | | | | SERVICES, | | | | | | CORE | | + +---------+ + + + | ALT (SGPT) | 17 | 12 - 60 U/L | [facility] | | | | | | LABORATORY | | | | | | SERVICES, | | | | | | CORE | | + +---------+ + + + | ANION | 5 | 4 - 11 mmol/L | [facility] [...] | + + + + + | [facility] | [address] | [place] [address] | | | SERVICES, VENU | [place] [place] | | | + + + + + documented in this encounter Visit Diagnoses + + | Diagnosis | + + | Crohn's disease, small and large intestine, without complications - Primary | + + documented in this encounter
--- OUTSIDE RECORDS SUMMARY | ~2019-02-23 | XMS | Encounter Summary ---
Demographics + + + | Address | [address] | | | [place] [address] | + + + | Home Phone [...] + | Debora Resendiz | ECON | [address] | | | | | [place] | | | | | [address] | | + + + + + [...] Team Providers + +------+ + | Care Digital Forensics Examiner Name | Role | Phone | [...] | 11/17/ | Telephone | Pediatric | Tania Foster MD | Update from Patient | | 2013 | | Gastroenterology at | [address] [facility] | | | | | [place] | [facility] [place], | | | | | [facility] | [place] [address] | | | | | [address] | [phone] | | | | | Mailcode: CDR | | | | | | [place] | | | | | | [place], [place] | | | | | | [address] | | | | | | [phone] | | | +--------+ + + + [...]
--- OUTSIDE RECORDS SUMMARY | ~2019-02-23 | XMS | Encounter Summary ---
Demographics + + + | Address | [address] | | | [place] [address] | + + + | Home Phone [...] + + + | Author | [facility] | + + + | Organization | [facility] | + + + | Address | Unknown | + + + | Phone | Unavailable | + + + Support + + + + + | Name | Relationship | Address | Phone | + + + + + | Debora Resendiz | ECON | [address] | | | | | [place] | | | | | [address] | | + + + + + [...] Team Providers + +------+ + | Care Zipper Trimmer Name | Role | Phone | + +------+ + | Tracey Galeas MD | PCP | Unavailable | + +------+ + Reason for Visit + + + | Reason | Comments | + + + | Prescription | asacol | | Clarification | | + + + Encounter Details +--------+ + + + + | Date | Type | Department | Care Team | Description | +--------+ + + + + | 06/17/ | Telephone | Pediatric | Tania Foster MD | Prescription | | 2012 | | Gastroenterology at | [address] | Clarification | | | | [place] | [facility] [place], | (asacol) | | | | [facility] | [place] [address] | | | | | [address] | [phone] | | | | | Mailcode: [place] | | | | | | [place] | | | | | | [place], [place] | | | | | | [address] | | | | | | [phone] | | | +--------+ + + + [...]
--- OUTSIDE RECORDS SUMMARY | ~2019-02-23 | XMS | Encounter Summary ---
Demographics + + + | Address | [address] | | | [place] [address] | + + + | Home Phone [...] + | Debora Resendiz | ECON | [address] | | | | | [place] | | | | | [address] | | + + + + + [...] Team Providers + +------+ + | Care Potato Grader Name | Role | Phone | + +------+ + | Tracey Galeas MD | PCP | Unavailable | + +------+ + Encounter Details +--------+------+ + + + | Date | Type | Department | Care Team | Description | +--------+------+ + + + | 01/13/ | Lab | Lab Center at [facility] | | Crohn's disease, | | 2013 | | 7th Floor [address] | | small and large | | | | [address] [place], | | intestine with | | | | [place] [address] | | granuloma in the | | | | [phone] | | colon, severe | | | | | | duodenitis; Crohn's | | | | | | disease, small and | | | | | | large intestine, | | | | | | without | | | | | | complications (HCC) | +--------+------+ + + + Social History [...] CBC AND AUTO DIFF | Routin | 01/13/2014 | Crohn's disease, | Results for this | | | e | 11:31 AM | small and large | procedure are in the | | | | PST | intestine with | results section. | | | | | granuloma in the | | | | | | colon, severe | | | | | | duodenitis | | + +--------+ + + + | CBC, WITH | Routin | 01/13/2014 | Crohn's disease, | Results for this | | DIFFERENTIAL | e | 11:31 AM | small and large | procedure are in the | | | | PST | intestine with | results section. | | | | | granuloma in the | | | | | | colon, severe | | | | | | duodenitis | | + +--------+ + + + | VITAMIN D, | Routin | 01/13/2014 | Crohn's disease, | Results for this | | 25-HYDROXY, SERUM | e | 11:31 AM | small and large | procedure are in the | | | | PST | intestine with | results section. | | | | | granuloma in the | | | | | | colon, severe | | | | | | duodenitis | | + +--------+ + + + | COMPLETE METABOLIC | Routin | 01/13/2014 | Crohn's disease, | Results for this | | SET | e | 11:31 AM | small and large | procedure are in the | | (NA,K,CL,CO2,BUN,CRE | | PST | intestine, without | results section. | | AT,GLUC,CA,AST,ALT,B | | | complications (HCC) | | | LAYLA TOTAL,ALK | | | | | | PHOS,ALB,PROT TOTAL) | | | | | + +--------+ + + + | SEDIMENTATION RATE | Routin | 01/13/2014 | Crohn's disease, | Results for this | | | e | 11:31 AM | small and large | procedure are in the | | | | PST | intestine, without | results section. | | | | | complications (HCC) | | + +--------+ + + + documented in this encounter Results CBC AND AUTO DIFF (01/13/2014 11:31 AM PST) + + + + + + | Component | Value | Ref Range | Performed | Pathologist | | | | | At | Signature | + + + + + + | WHITE CELL | 5.38 | 4.90 - 15.50 | [facility] | | | COUNT | | K/cu mm | LABORATORY | | | | | | SERVICES, | | | | | | CORE | | + + + + + + | RED CELL | 5.49 (H) | 4.50 - 5.30 | [facility] | | | COUNT | | M/cu mm | LABORATORY | | | | | | SERVICES, | | | | | | CORE | | + + + + + + | HEMOGLOBIN | 14.3 | 13.0 - 16.0 | [facility] | | | | | g/dL | LABORATORY | | | | | | SERVICES, | | | | | | CORE | | + + + + + + | HEMATOCRIT | 44.0 | 37.0 - 49.0 % | [facility] | | | | | | LABORATORY | | | | | | SERVICES, | | | | | | CORE | | + + + + + + | MCV | 80.1 | 80.0 - 96.0 fL | [facility] | | | | | | LABORATORY | | | | | | SERVICES, | | | | | | CORE | | + + + + + + | MCHC | 32.5 | 33.0 - 35.5 | [facility] | | | | | g/dL | LABORATORY | | | | | | SERVICES, | | | | | | CORE | | + + + + + + | RDW SD | 36.5 | 35.1 - 46.3 fL | [facility] | | | | | | LABORATORY | | | | | | SERVICES, | | | | | | CORE | | + + + + + + | PLATELET | 206 | 150 - 400 K/cu | [facility] [...] + + + + | NEUTROPHIL | 50.5 | 41.0 - 76.0 % | [facility] | | | % | | | LABORATORY | | | | | | SERVICES, | | | | | | CORE | | + + + + + + | LYMPHOCYTE | 37.4 | 7.0 - 41.0 % | [facility] | | | % | | | LABORATORY | | | | | | SERVICES, | | | | | | CORE | | + + + + + + | MONOCYTE % | 8.6 | 3.0 - 13.0 % | [facility] | | | | | | LABORATORY | | | | | | SERVICES, | | | | | | CORE | | + + + + + + | EOS % | 2.4 | 0.0 - 6.0 % | [facility] | | | | | | LABORATORY | | | | | | SERVICES, | | | | | | CORE | | + + + + + + | BASO % | 0.9 | 0.0 - 2.0 % | [facility] [...] + + + + | NEUTROPHIL | 2.72 (L) | 2.80 - 11.10 | [facility] | | | # | | K/cu mm | LABORATORY | | | | | | SERVICES, | | | | | | CORE | | + + + + + + | LYMPHOCYTE | 2.01 | 0.40 - 3.20 | [facility] | | | # | | K/cu mm | LABORATORY | | | | | | SERVICES, | | | | | | CORE | | + + + + + + | MONOCYTE # | 0.46 | 0.30 - 1.30 | [facility] | | | | | K/cu mm | LABORATORY | | | | | | SERVICES, | | | | | | CORE | | + + + + + + | EOS # | 0.13 | 0.00 - 0.30 | [facility] | [...] + + + + + | [facility] | [id number] | [place] [address] | | | SERVICES, VENU | [address] | | | + + + + + SEDIMENTATION RATE (01/13/2014 11:31 AM PST) + [...] + + + + + | [facility] | [address] | [place] [address] | | | SERVICES, CORE | [address] [...] | + + + + + | [facility] | [address] | [place] [address] | | | SERVICES, CORE | [address] | | | + + + + + VITAMIN D, 25-HYDROXY, SERUM (01/13/2014 11:31 AM [...] to 20 ng/mL* | SERVICES, | | *(Chucho CL et al. Pediatrics 2008; 122:1128-38.) 18 [...] + + | [facility] | [address] [facility] | [place] [address] | | | SERVICES, SPECIAL | [address] | | | | IMM + COAG | | | | + + + + + documented in this encounter Visit Diagnoses + + | Diagnosis | + + | Crohn's disease, small and large intestine, without complications | + + documented in this encounter"
--- OUTSIDE RECORDS SUMMARY | ~2019-02-23 | XMS | Encounter Summary ---
Demographics + + + | Address | [address] | | | [place] [address] | + + + | Home Phone [...] + | Debora Resendiz | ECON | [address] | | | | | [place] | | | | | [address] | | + + + + + [...] Team Providers + +------+ + | Care Professor Of Forest Planning Name | Role | Phone | + [...] | | Gr[place]da | Herminia Yepez [place], | | | | | [facility] | [place] [address] | | | | | [address] | [phone] | | | | | Mailcode: CDRCP | | | | | | Griselda | | | | | | [place], [place] | | | | | | [address] | | | | | | [phone] | | | +--------+ + + + [...]
--- OUTSIDE RECORDS SUMMARY | ~2019-02-23 | XMS | Encounter Summary ---
Demographics + + + | Address | [address] | | | [place] [address] | + + + | Home Phone [...] + | Debora Resendiz | ECON | [address] | | | | | [place] | | | | | [address] | | + + + + + [...] Team Providers + +------+ + | Care Transition Advisor Name | Role | Phone | [...] | | | Griselda | Herminia Yepez [facility] | | | | | [facility] | [place] [address] | | | | | [address] | [phone] | | | | | Mailcode: SUKUMAR | | | | | | Griselda | | | | | | [place], [place] | | | | | | [address] | | | | | | [phone] | | | +--------+ + + + [...] + | [facility] - | [address] | [place] [address] | | | [facility] | | | | + + + [...] + | [facility] - | [address] | [place] [address] | | | [place] | | | [...] + | [facility] - | [address] | [place] [address] | | | [place] | | | [...] + | [facility] - | [address] | [place] [address] | | | [place] | | | | + + + + + documented in this encounter Visit Diagnoses Not on filedocumented in this encounter"
--- OUTSIDE RECORDS SUMMARY | ~2019-02-23 | XMS | Encounter Summary ---
Demographics + + + | Address | [address] | | | [place] [address] | + + + | Home Phone [...] Author + + + | Author | [facility] | + + + | Organization | [facility] | + + + | Address | Unknown | + + + | Phone | Unavailable | + + + Support + + + + + | Name | Relationship | Address | Phone | + + + + + | Debora Resendiz | ECON | [address] | | | | | [place] | | | | | [address] | | + + + + + [...] Team Providers + +------+ + | Care Police Worker Name | Role | Phone | [...] 2011 | | Gastroenterology at | [address] | | | | | Griselda | Herminia Yepez [place], | | | | | [facility] | [place] [address] | | | | | [address] [facility] | [phone] | | | | | Mailcode: SUKUMAR | | | | | | Griselda | | | | | | [place], [place] | | | | | | [address] | | | | | | [phone] | | | +--------+ + + + [...]
--- OUTSIDE RECORDS SUMMARY | ~2019-02-23 | XMS | Encounter Summary ---
Demographics + + + | Address | [address] | | | [place] [address] | + + + | Home Phone [...] + | Debora Resendiz | ECON | [address] | | | | | [place] | | | | | [address] | | + + + + + [...] Team Providers + +------+ + | Care Knuckle Bender Name | Role | Phone | + [...] | ogy | Abnormal | [facility] | [address] | | | | | weight gain | PERMANENTE | Mailcode: | | | | | Anemia, | [place] | [facility]RCP | | | | | unspecified | [address] | [address] | | | | | | [address] | [place], [place] | | | | | [address] | [address] | | | | | | [place], | Phone: | | | | | | [place] [address] | [phone] | | | | | | | Fax: | | | | | | | [phone] | +--------+ + + + + + [...] | | | [address] | [address] [place], | intestine with | | | | [facility] | [place] [address] | granuloma in the | | | | [address] [facility] | [phone] | colon, severe | | | | Mailcode: CDRCP | | duodenitis (Primary | | | | [address] | | Dx) | | | | [place], [place] | | | | | | [address] | | | | | | [phone] | | | +--------+---------+ + + + [...] 4:00 PM PDTThings to avoid: Celery Asparagus [place], popcorn Artichoke hearts Narrowing of the terminal ileum - where the colon meets the small bowel. Please read on the [email or web address] website about remicade. Also check out ShotSpotter and [email or web address]. documented in this encounter Progress [...] [email or web address] and [email or web address] 4. Health care maintenance Ion Exchange Operator exam every 2 years. Flu shot reminder: yes Note: Immunosuppressed patients on Remicade, Humira, Cimzia, chronic steroids, methotrexate , imuran or 6-MP should not have live virus vaccinations , including the nasal flu mist, MMR or Varicella vaccination. 5. Next recommended follow-up in GI clinic: 1 month due to the level of his disease activi tyMD [facility] [address] [facility] Mailcode: Cdrcp [place] [facility] [address] documented in this enco unter Plan of [...]
--- OUTSIDE RECORDS SUMMARY | ~2019-02-23 | XMS | Encounter Summary ---
Demographics + + + | Address | [address] | | | [place] [address] | + + + | Home Phone | | + + + | Preferred Language | Unknown | + + + | Marital Status | Single | + + + | Rastafari Affiliation | NON | + + + [...] + | Debora Resendiz | ECON | [address] | | | | | [place] | | | | | [address] | | + + + + + [...] Team Providers + +------+ + | Care Supervisor Cabinetmaker Name | Role | Phone | + [...] of | [address] | [address] | | | | | small | Manav Yepez | Dr | | | | | intestine | [place], [place] | Mailcode: | | | | | with large | [address] | [facility] | | | | | intestine | | [address] | | | | | ([facility]) | | [place], [place] | | | | | Procedures | | [address] | | | | | [place] | | Phone: | | | | | INFLIXIMAB | | [phone] | | | | | INJECTION, | | Fax: | | | | | 10 MG | | [phone] | +--------+--------+ + + + + Encounter Details +--------+---------+ + + + | Date | Type | Department | Care Team | Description | +--------+---------+ + + + | 06/28/ | Office | Hematology | Wilmer, | High risk | | 2012 | Visit | Oncology at [facility] [address] | [address] | medications (not | | | | [facility] [address] | [address], | anticoagulants) | | | | Mailcode: [facility] | [place] [address] | long-term use | | | | Griselda | [phone] | (Primary Dx); | | | | [place], [place] | | 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 Foster to coincide with your next Remicade infusion in [address] [place] [address]. documented in this encounter Progress Notes Sherron Guillen NP - 06/28/2012 10:06 AM PDTFormatting of this note might be differe nt from the original. PEDIATRIC GASTROENTEROLOGY IBD FOLLOW-UP CONSULTATION Jeremias Adames is an 16 y.o. male, who is referred by Tracey Galeas to [facility] accompanied by his father and brother, for a scheduled Remicade infusion. Jeremias Adames has the following medical problems: Patient Active Problem List Diagnoses Weight loss Diarrhea Heartburn Anemia Abdominal pain, acute, right upper quadrant Nausea Crohn's disease, small and large intestine with 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, severe duodenit is Gastric ulcer Anorexia Helicobacter positive gastritis High risk medications (not anticoagulants) long-term use Hematochezia Vitamin B12 deficiency Excessive thirst Neutropenia Past IBD history: 06/04 diagnosed with Crohn's - focus of disease mainly in stomach with granulomas, colon an d ileum. 02/03: biopsy: active gastritis with H. 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 Medications that have failed to control the disease activity: Imuran and steroids Current medicines include: Current Outpatient Prescriptions Medication Sig CALCIUM CARBONATE (CALCIUM 500 ORAL) Take by mouth. cholecalciferol, Vitamin D3, 1,000 unit Oral tablet Take 1,000 Units by mouth every sev en days. FOLIC ACID ORAL Take by mouth. inFLIXimab (REMICADE) 100 mg Intravenous Recon Soln Inject 5 mg/kg into the vein (IV) e very eight weeks. Indications: CROHN'S DISEASE Mesalamine (LIALDA) 1.2 g Oral tablet,delayed release [...] no. Vomiting? no. Energy level is low. He has been napping for 1 hr every afternoon. He [facility]eps 9 hours at [facility] as well. His sleep is restless. Appetite is normal. New medical/surgical issues since last visit? arthritis in feet has been bothersome, inter feres with running, skateboarding and athletic activities. ROS: Aphthous ulcers? no Any joint or eye pain? no Any cough or nasal discharge recently? no Any known clotting disorder? no Any recent fever ? no Any skin problems or rash? no Has weight been stable? yes GI aspects of ROS noted in the Interval History section above. Cardiovascular: Negative Genitourinary:Negative Neurologic: Negative Social history: Lives with mother and father, sister and brother. Mother has been ill rec ently with bacterial respiratory conditions. Missing school? no Medication compliance estimate 99% Nutrition: Taking multivitamin? yes Calcium intake adequate? yes No Known Allergies Ht 173.7 cm (5' 8.39") (54 %ile), Wt 68.6 kg (151 lbs 3.8 oz) (76 %ile), BP 129/83, Pulse 6 9, Temperature 36.8 C (98.2 F), Temperature source Oral, RR 18. (Taken on ThuJune 28 9:13 AM ) Examination: Appearance: alert, active and in no apparent distress. Skin: turgor normal, capillary refill brisk, no rashes, petechiae HEENT: normocephalic, sclera nonicteric,nose without discharge, mouth no aphthous lesions, mucous membranes moist, pharynx unremarkable Neck: supple, without thyromegaly Chest: clear to auscultation bilaterally. CV: regular rhythm, no murmurs. Abdomen: normal bowel sounds, soft, no distention, no tenderness to palpation, no rebound o r guarding, no fullness in the RLQ or palpable masses, no hepatosplenomegaly Musculoskeletal: grossly intact without clubbing or edema Neuro: normal gait and speech for age Nodes: no significant cervical or supraclavicular adenopathy Psychiatric- affect pleasant, withdrawn Patient reports a pain level of 0 today. ___ No action required _X__ See assessment and plan Lab results from last GI visit: Clinical Ferry Terminal Supervisor on 05/03/2012 Component Date Value Range ALBUMIN, PLASMA (LAB) (g/dL) 05/03/2012 4.0 3.5-4.7 BILIRUBIN TOTAL (mg/dL) 05/03/2012 0.3 0.3-1.2 BILIRUBIN DIRECT (mg/dL) 05/03/2012 <0.1 0.0-0.3 ALK PHOS (U/L) 05/03/2012 199 55-220 AST(SGOT) (U/L) 05/03/2012 16* 18-36 ALT (SGPT) (U/L) 05/03/2012 18 12-60 TOTAL PROTEIN, PLASMA (LAB) (g/dL) 05/03/2012 6.5 5.9-8.2 AST CMNT 05/03/2012 No Hemo - BILI T CMNT 05/03/2012 No Hemo - BILI D CMNT 05/03/2012 No Hemo - WBC COUNT (K/cu mm) 05/03/2012 4.7* 4.9-15.5 RED CELL COUNT (M/cu mm) 05/03/2012 5.17 4.50-5.30 HEMOGLOBIN (g/dL) 05/03/2012 12.5* 13.0-16.0 HEMATOCRIT (%) 05/03/2012 37.8 37.0-49.0 MCV (fL) 05/03/2012 73.1* 80.0-96.0 MCHC (g/dL) 05/03/2012 33.1* 33.4-35.5 RDW (%) 05/03/2012 18.0* 11.5-15.0 PLATELET COUNT (K/cu mm) 05/03/2012 197 150-400 NEUTROPHIL % (%) 05/03/2012 51 41-76 LYMPHOCYTE % (%) 05/03/2012 34 7-41 MONOCYTE % (%) 05/03/2012 11 3-13 EOS % (%) 05/03/2012 3 0-6 BASO % (%) 05/03/2012 1 0-2 NEUTROPHIL # (K/cu mm) 05/03/2012 2.4* 2.8-11.1 LYMPHOCYTE # (K/cu mm) 05/03/2012 1.6 0.4-3.2 MONOCYTE # (K/cu mm) 05/03/2012 0.5 0.3-1.3 EOS # (K/cu mm) 05/03/2012 0.1 0.0-0.3 BASO # (K/cu mm) 05/03/2012 0.0 0.0-0.2 He had Remicade antibodies drawn at [place], no result yet. Assessment & Plan : This is a [...] Hematochezia Vitamin B12 deficiency Excessive thirst Neutropenia 1. Inflammatory bowel disease The inflammatory bowel is active. He continues to have anemia, now with arthritis and incre asing fatigue. His symptoms are more pronounced 2-3 weeks before his next Remicade infusion is scheduled. The following medications were changed: None Past studies reviewed with family/patient, and new studies ordered: CBC, liver set 2. Nutrition support: A. Our Crohn's patients would benefit from a DEXA every 2 years; this can be done during summer to avoid missing school. B. We recommend a multivitamin for patient, and calcium supplement: 3. Health care maintenance: A. Vaccinations Family reminded of importance of getting a flu shot every fall. No live virus vaccinations such as the nasal flu mist, Varicella or MMR for our patients on immunosuppressives (such a s 6- mercaptopurine/imuran or TNF alpha blocking agents such as Infliximab/Humira). 4. Psychosocial or economic challenges affecting patient's medical care delivery: Financia l stress, mom has been ill and missing work recently. Jeremias continues to struggle academic ally. Plan- the following was included in the patient's after visit summary: Schedule an appointment with Dr. Foster to coincide with your next Remicade infusion in . [facility] [facility] Mailcode: [id number] [place] [phone] documented in t his encounter Plan of Treatment Not on filedocumented as of this encounter Visit Diagnoses + + | Diagnosis | + + | High risk medications (not anticoagulants) long-term use - Primary Encounter for | | long-term (current) use of other medications | + + | Arthritis associated with inflammatory bowel disease Arthropathy associated with | | gastrointestinal conditions other than infections | + + | Fatigue Other malaise and fatigue | + + documented in this encounter
--- OUTSIDE RECORDS SUMMARY | ~2019-02-23 | XMS | Encounter Summary ---
Demographics + + + | Address | [address] | | | [place] [address] | + + + | Home Phone [...] + | Debora Resendiz | ECON | [address] | | | | | [place] | | | | | [address] | | + + + + + [...] Team Providers + +------+ + | Care Makeup Artist Name | Role | Phone | + [...] 2012 | | Gastroenterology at | [address] [facility] | | | | | Griselda | Herminia Yepez [place], | | | | | [facility] | [place] [address] | | | | | [address] [facility] | [phone] | | | | | Mailcode: SUKUMAR | | | | | | Griselda | | | | | | [place], [place] | | | | | | [address] | | | | | | [phone] | | | +--------+ + + + [...]
--- OUTSIDE RECORDS SUMMARY | ~2019-02-23 | XMS | Encounter Summary ---
Demographics + + + | Address | [address] | | | [place] [address] | + + + | Home Phone [...] + | Debora Resendiz | ECON | [address] | | | | | [place] | | | | | [address] | | + + + + + [...] Team Providers + +------+ + | Care Shredded Filler Hopper Feeder Name | Role | Phone | + +------+ + | Tracey Galeas MD | PCP | Unavailable | + +------+ + Reason for Visit +--------+ + | Reason | Comments | +--------+ + | Other | Gol[facility] Prescription | +--------+ + Encounter Details +--------+ + + + + | Date | Type | Department | Care Team | Description | +--------+ + + + + | 01/02/ | Telephone | Pediatric | Tania Foster MD | Other (Emili | | 2013 | | Gastroenterology at | [address] [facility] | Prescription) | | | | [place]da | Herminia Yepez [place], | | | | | [facility] | [place] [address] | | | | | [address] | [phone] | | | | | Mailcode: [facility] | | | | | | Griselda | | | | | | [place], [place] | | | | | | [address] | | | | | | [phone] | | | +--------+ + + + [...]
--- OUTSIDE RECORDS SUMMARY | ~2019-02-23 | XMS | Encounter Summary ---
Demographics + + + | Address | [address] | | | [place] [address] | + + + | Home Phone [...] + | Debora Resendiz | ECON | [address] | | | | | [place] | | | | | [address] | | + + + + + [...] Team Providers + +------+ + | Care Sales And Production Manager Name | Role | Phone | + +------+ + | Tracey Galeas MD | PCP | Unavailable | + +------+ + Encounter Details +--------+------+ + + + | Date | Type | Department | Care Team | Description | +--------+------+ + + + | 11/17/ | Lab | [facility] at [facility] | | Crohn's disease, | | 2013 | | 7th Floor [address] | | small and large | | | | [address] [place], | | intestine, | | | | [place] [address] | | unspecified | | | | [phone] | | complication (HCC) | +--------+------+ + + + Social [...] CBC AND AUTO DIFF | Routin | 11/17/2013 | Crohn's disease, | Results for this | | | e | 9:36 AM | small and large | procedure are in the | | | | PDT | intestine, | results section. | | | | | unspecified | | | | | | complication (HCC) | | + +--------+ + + + | CBC, WITH | Routin | 11/17/2013 | Crohn's disease, | Results for this | | DIFFERENTIAL | e | 9:36 AM | small and large | procedure are in the | | | | PDT | intestine, | results section. | | | | | unspecified | | | | | | complication (HCC) | | + +--------+ + + + | VITAMIN D, | Routin | 11/17/2013 | Crohn's disease, | Results for this | | 25-HYDROXY, SERUM | e | 9:36 AM | small and large | procedure are in the | | | | PDT | intestine, | results section. | | | | | unspecified | | | | | | complication (HCC) | | + +--------+ + + + | COMPLETE METABOLIC | Routin | 11/17/2013 | Crohn's disease, | Results for this | | SET | e | 9:36 AM | small and large | procedure are in the | | (NA,K,CL,CO2,BUN,CRE | | PDT | intestine, | results section. | | AT,GLUC,CA,AST,ALT,B | | | unspecified | | | LAYLA TOTAL,ALK | | | complication (HCC) | | | PHOS,ALB,PROT TOTAL) | | | | | + +--------+ + + + | C-REACTIVE PROTEIN | Routin | 11/17/2013 | Crohn's disease, | Results for this | | | e | 9:36 AM | small and large | procedure are in the | | | | PDT | intestine, | results section. | | | | | unspecified | | | | | | complication (HCC) | | + +--------+ + + + | SEDIMENTATION RATE | Routin | 11/17/2013 | Crohn's disease, | Results for this | | | e | 9:36 AM | small and large | procedure are in the | | | | PDT | intestine, | results section. | | | | | unspecified | | | | | | complication (HCC) | | + +--------+ + + + | GGT, PLASMA | Routin | 11/17/2013 | Crohn's disease, | Results for this | | | e | 9:36 AM | small and large | procedure are in the | | | | PDT | intestine, | results section. | | | | | unspecified | | | | | | complication (HCC) | | + +--------+ + + + | VITAMIN B-12 | Routin | 11/17/2013 | Crohn's disease, | Results for this | | | e | 9:36 AM | small and large | procedure are in the | | | | PDT | intestine, | results section. | | | | | unspecified | | | | | | complication (HCC) | | + +--------+ + + + documented in this encounter Results CBC AND AUTO DIFF (11/17/2013 9:36 AM PDT) + + + + + + | Component | Value | Ref Range | Performed | Pathologist | | | | | At | Signature | + + + + + + | WHITE CELL | 4.81 (L) | 4.90 - 15.50 | [facility] | | | COUNT | | K/cu mm | LABORATORY | | | | | | SERVICES, | | | | | | CORE | | + + + + + + | RED CELL | 5.50 (H) | 4.50 - 5.30 | [facility] | | | COUNT | | M/cu mm | LABORATORY | | | | | | SERVICES, | | | | | | CORE | | + + + + + + | HEMOGLOBIN | 14.1 | 13.0 - 16.0 | [facility] | | | | | g/dL | LABORATORY | | | | | | SERVICES, | | | | | | CORE | | + + + + + + | HEMATOCRIT | 43.4 | 37.0 - 49.0 % | [facility] | | | | | | LABORATORY | | | | | | SERVICES, | | | | | | CORE | | + + + + + + | MCV | 78.9 (L) | 80.0 - 96.0 fL | [...] + + + | RDW SD | 38.5 | 35.1 - 46.3 fL | [facility] [...] + + + + | NEUTROPHIL | 42.0 | 41.0 - 76.0 % | [facility] | | | % | | | LABORATORY | | | | | | SERVICES, | | | | | | CORE | | + + + + + + | LYMPHOCYTE | 46.6 (H) | 7.0 - 41.0 % | [facility] [...] + | EOS % | 1.7 | 0.0 - 6.0 % | [facility] [...] + + + + | NEUTROPHIL | 2.02 (L) | 2.80 - 11.10 | [facility] | | | # | | K/cu mm | LABORATORY | | | | | | SERVICES, | | | | | | CORE | | + + + + + + | LYMPHOCYTE | 2.24 | 0.40 - 3.20 | [facility] | | | # | | K/cu mm | LABORATORY | | | | | | SERVICES, | | | | | | CORE | | + + + + + + | MONOCYTE # | 0.42 | 0.30 - 1.30 | [facility] | | | | | K/cu mm | LABORATORY | | | | | | SERVICES, | | | | | | CORE | | + + + + + + | EOS # | 0.08 | 0.00 - 0.30 | [facility] | | | | | K/cu mm | LABORATORY | | | | | | SERVICES, | | | | | | CORE | | + + + + + + | BASO # | 0.04 | 0.00 - 0.20 | [facility] | [...] [facility] | [address] | [place] [address] | | | [address] | [address] | | | + + + + + SEDIMENTATION RATE (11/17/2013 9:36 AM PDT) + +-------+ + + + | Component | Value | Ref Range | Performed | Pathologist | | | | | At | Signature | + +-------+ + + + | SEDIMENTATI | 2 | 0 - 15 mm/hr | [facility] [...] [facility] | [address] | [place] [address] | | | SERVICES, CORE | [address] | | | + + + + + COMPLETE METABOLIC SET (NA,K,CL,CO2,BUN,CREAT,GLUC,CA,AST,ALT,BILI TOTAL,ALK PHOS,ALB,PROT TOTAL) (11/17/2013 9:36 AM PDT) + +---------+ + + + | Component | Value | Ref Range | Performed | Pathologist | | | | | At | Signature | + +---------+ + + + | GLUCOSE, | 98 | 60 - 99 mg/dL | [facility] [...] +---------+ + + + | CREATININE | 0.71 | 0.46 - 0.81 | [facility] | [...] + + | TOTAL | 7.2 | 6.4 - 8.2 g/dL | [facility] [...] + + + | ALK PHOS | 123 | 55 - 220 U/L | [facility] | | | | | | LABORATORY | | | | | | SERVICES, | | | | | | CORE | | + +---------+ + + + | AST(SGOT) | 6 (L) | 15 - 41 U/L | [...] +---------+ + + + | ANION | 6 | 4 - 11 mmol/L | [facility] [...] + + + | ANION GAP | 7 | mmol/L | [facility] | | | [...] + + + + + | [facility] | [address] | [place] [address] | | | SERVICES, CORE | [address] | | | + + + + + VITAMIN B-12, SERUM (11/17/2013 9:36 AM PDT) + +-------+ + + + | Component | Value | Ref Range | Performed | Pathologist | | | | | At | Signature | + +-------+ + + + | VITAMIN B12 | 906 | 190 - 910 pg/ml | [facility] [...] [facility] | [address] | [place] [address] | | | SERVICES, SPECIAL | [address] | | | | IMM + COAG | | | | + + + + + VITAMIN D, 25-HYDROXY, SERUM (11/17/2013 9:36 AM PDT) + +-------+ + + + | Component | Value | Ref Range | Performed | Pathologist | | | | | At | Signature | + +-------+ + + + | VITAMIN D | 27.6 | 20 - 80 ng/mL | [facility] [...] [facility] | [address] | [place] [address] | | | SERVICES, SPECIAL | [address] | | | | IMM + COAG | | | | + + + + + GGT, PLASMA (11/17/2013 9:36 AM PDT) + +-------+ + + + | Component | Value | Ref Range | Performed | Pathologist | | | | | At | Signature | + +-------+ + + + | GAMMA | 20 | 12 - 98 U/L | [facility] [...] [facility] | [address] | [place] [address] | | | SERVICES, CORE | [address] | | | + + + + + C-REACTIVE PROTEIN (11/17/2013 9:36 AM PDT) + +-------+ + + + | Component | Value | Ref Range | Performed | Pathologist | | | | | At | Signature | + +-------+ + + + | C-REACTIVE | <2.9 | <10.0 mg/L | [facility] | | | PROTEIN | | | LABORATORY | | | | | | SERVICES, | | | | | | CORE | | + +-------+ + + + + + | Specimen | + + | Blood - Blood | + + + + + | Narrative | Performed At | + + + | New method, new reference range and new reporting units as of | [facility] | | 07/27/2013. | LABORATORY | | | SERVICES, CORE | + + + + + + + + | Performing | Address | City/State/Zipcode | Phone Number | | Organization | | | | + + + + + | [email or web address] | [address] | [place] [address] | | | SERVICES, CORE | [address] | | | + + + + + documented in this encounter Visit Diagnoses + + | Diagnosis | + + | Crohn's disease, small and large intestine, unspecified complication | + + documented in this encounter"
--- OUTSIDE RECORDS SUMMARY | ~2019-02-23 | XMS | Encounter Summary ---
Demographics + + + | Address | [address] | | | [place] [address] | + + + | Home Phone [...] Author | [facility] | + + + | Organization | [facility] | + + + | Address | Unknown | + + + | Phone | Unavailable | + + + Support + + + + + | Name | Relationship | Address | Phone | + + + + + | Debora Resendiz | ECON | [address] | | | | | [place] | | | | | [address] | | + + + + + [...] Team Providers + +------+ + | Care Joint Cutter Machine Name | Role | Phone | + +------+ + | Srinivas Stephens DO | PCP | | + +------+ + Encounter Details +--------+ + + + + | Date | Type | Department | Care Team | Description | +--------+ + + + + | 01/03/ | MyChart | Pediatric | Tania Foster MD | RE: RE: | | 2016 | Encounter | Gastroenterology at | [address] [facility] | recommendation | | | | [place] | Herminia Yepez [place], | | | | | [facility] | [place] [address] | | | | | [address] | [phone] | | | | | Mailcode: CDRCP | | | | | | [place] | | | | | | [place], [place] | | | | | | [address] | | | | | | [phone] | | | +--------+ + + + [...]
--- OUTSIDE RECORDS SUMMARY | ~2019-02-23 | XMS | Encounter Summary ---
Demographics + + + | Address | [address] | | | [place] [address] | + + + | Home Phone | | + + + | Preferred Language | Unknown | + + + | Marital Status | Single | + + + | Moravian Affiliation | NON | + + + [...] + | Debora Resendiz | ECON | [address] | | | | | [place] | | | | | [address] | | + + + + + [...] Team Providers + +------+ + | Care Reconciling Clerk Name | Role | Phone | [...] | | Gastroenterology at | [address] [facility] | | | | | [place] | Herminia Ye[address] [place], | | | | | [facility] | [place] [address] | | | | | [address] [facility] | [phone] | | | | | Mailcode: SUKUMAR | | | | | | [place] | | | | | | [place], [place] | | | | | | [address] | | | | | | [phone] | | | +--------+ + + + [...]
--- OUTSIDE RECORDS SUMMARY | ~2019-02-23 | XMS | Encounter Summary ---
Demographics + + + | Address | [address] | | | [place] [address] | + + + | Home Phone | | + + + | Preferred Language | Unknown | + + + | Marital Status | Single | + + + | Adventism Affiliation | NON | + + + [...] + | eDbora Resendiz | ECON | [address] | | | | | [place] | | | | | [address] | | + + + + + [...] Team Providers + +------+ + | Care Wheelchair Van Operator First Responder Name | Role | Phone | + [...] | | | [place] | Herminia Ye[facility] | | | | | [facility] | [place] [address] | | | | | [address] | [phone] | | | | | Mailcode: [facility] | | | | | | [place] | | | | | | [place], [place] | | | | | | [address] | | | | | | [phone] | | | +--------+ + + + [...]
--- OUTSIDE RECORDS SUMMARY | ~2019-02-23 | XMS | Encounter Summary ---
Demographics + + + | Address | [address] | | | [place] [address] | + + + | Home Phone [...] + | Debora Resendiz | ECON | [address] | | | | | [place] | | | | | [address] | | + + + + + [...] Providers + +------+ + | Care Automobile Lights Assembler Name | Role | Phone | [...] | | | [place] | Herimnia Yepez [place], | | | | | [facility] | [place] [address] | | | | | [address] | [phone] | | | | | Mailcode: CDRCP | | | | | | [place] | | | | | | [place], [place] | | | | | | [address] | | | | | | [phone] | | | +--------+ + + + [...]
--- OUTSIDE RECORDS SUMMARY | ~2019-02-23 | XMS | Encounter Summary ---
Demographics + + + | Address | [address] | | | [place] [address] | + + + | Home Phone [...] + | Debora Resendiz | ECON | [address] | | | | | [place] | | | | | [address] | | + + + + + [...] Providers + +------+ + | Care Property Management Accountant Name | Role | Phone | + [...] + + | 07/31/ | Office | Pediatric | | Crohn's disease, | | 2011 | Visit | Hematology Oncology | | small and large | | | | at [facility] | | intestine with | | | | [facility] | | granuloma in the | | | | [address] | | colon, severe | | | | Mailcode: [id number] | | duodenitis; | | | | [place] | | Encounter for | | | | [place], [place] | | therapeutic drug | | | | [address] | | monitoring | | | | [phone] | | | +--------+---------+ + + + [...] + + + | Blood Pressure | 142/78 | 08/01/2011 12:50 PM | | | | | PDT | | + + + + + | Pulse | 98 | 08/01/2011 12:50 PM | | | | | PDT | | + + + + + | Temperature | 36.9 C (98.4 F) | 08/01/2011 12:50 PM | | | | | PDT | | + + + + + | Respiratory Rate | 20 | 08/01/2011 9:28 AM | | | | | PDT | | + + + + + | Oxygen Saturation | - | - | | + + + + + | Inhaled Oxygen | - | - | | | Concentration | | | | + + + + + | Weight | 62.5 kg (137 lb 12.6 | 08/01/2011 9:28 AM | with walking boot. | | | oz) | PDT | | + + + + + | Height | 170.9 cm (5' 7.28") | 08/01/2011 9:28 AM | | | | | PDT | | + + + + + | Body Mass Index | 21.4 | 08/01/2011 9:28 AM | | | | | PDT | | + + + + + documented in this encounter Progress Notes Tamar Hammond RN - 08/01/2011 1:39 PM PDTPIV removed with catheter intact at the end of his 30 minute observation. Pt was discharged home in good condition with his parents. Health 123 message sent regarding [place]'s Restroom Access Law (aka Farhana's Law) per parent request. avig, Carol Ye RN - 08/01/2011 10:38 AM PDTPt here for Remicade infusion. Pt appears well and interacts appropr iately for age. Pt has broken right ankle from playing basketball. Pt premedicated with Tyle nol and Claritin per MD orders. Pt examined by Zion Guillen NP. PIV placed and labs draw n by IVT RN. Remicade checked at bedside and hung per protocol. BP elevated upon arrival to clinic and continued to be elevated during beginning of infusion. Zion Guillen NP notifi ed. No new orders at this time. Pt tolerated remainder of infusion without issue. Once compl ete, PIV flushed with NS. After 30 minute observation period, PIV removed with catheter inta ct. Pt then d/c'd home in good condition with parents. Pt will return to clinic in 8 weeks f or Remicade infusion. documented in this encounter Plan of Treatment Not on filedocumented as of this encounter Procedures + +--------+ + + + | Procedure Name | Priori | Date/Time | Associated Diagnosis | Comments | | | ty | | | | + +--------+ + + + | DIFFERENTIAL | Routin | 08/01/2011 | | Results for this | | | e | 8:56 AM | | procedure are in the | | | | PDT | | results section. | + +--------+ + + + | CBC, WITH | Routin | 08/01/2011 | Crohn's disease, | Results for this | | DIFFERENTIAL | e | 8:56 AM | small and large | procedure [...] + | LIVER SET | Routin | 08/01/2011 | Crohn's disease, | Results for this | | (AST,ALT,BILI | e | 8:56 AM | small and large | procedure [...] + + | ORDERS OTHER | | 08/01/2011 | | Results for this | | | | 12:00 AM | | procedure are in the | | | | PDT | | results section. | + +--------+ + + + documented in this encounter Results DIFFERENTIAL (08/01/2011 8:56 AM PDT) + +-------+ + + + | Component | Value | Ref Range | Performed | Pathologist | | | | | At | Signature | + +-------+ + + + | NEUTROPHIL | 69 | 41 - 76 % | [facility] | | | % | | | DEPARTMENT | | | | | | OF | | | | | | PATHOLOGY | | + +-------+ + + + | LYMPHOCYTE | 22 | 7 - 41 % | [facility] | | | % | | | DEPARTMENT | | | | | | OF | | | | | | PATHOLOGY | | + +-------+ + + + | MONOCYTE % | 6 | 3 - 13 % | [facility] | | | | | | DEPARTMENT | | | | | | OF | | | | | | PATHOLOGY | | + +-------+ + + + | EOS % | 2 | <7 % | [facility] | | | | | | DEPARTMENT | | | | | | OF | | | | | | PATHOLOGY | | + +-------+ + + + | BASO % | 1 | <3 % | [facility] | | | | | | DEPARTMENT | | | | | | OF | | | | | | PATHOLOGY | | + +-------+ + + + | NEUTROPHIL | 3.1 | 2.8 - 11.1 K/cu | [facility] | | | # | | mm | DEPARTMENT | | | | | | OF | | | | | | PATHOLOGY | | + +-------+ + + + | LYMPHOCYTE | 1.0 | 0.4 - 3.2 K/cu | [facility] | | | # | | mm | DEPARTMENT | | | | | | OF | | | | | | PATHOLOGY | | + +-------+ + + + | MONOCYTE # | 0.3 | 0.3 - 1.3 K/cu | [facility] | | | | | mm | DEPARTMENT | | | | | | OF | | | | | | PATHOLOGY | | + +-------+ + + + | EOS # | 0.1 | <0.4 K/cu mm | [facility] | | | | | | DEPARTMENT | | | | | | OF | | | | | | PATHOLOGY | | + +-------+ + + + | BASO # | [...] | + + + + + | [facility] | [address] | [place] [address] | | | PATHOLOGY | [address] | | | + + + + + LIVER SET (AST,ALT,BILI TOTAL,BILI DIRECT,ALK PHOS,ALB,PROT TOTAL) (08/01/2011 8:56 AM PDT ) + +--------+ + + + | Component | Value | Ref Range | Performed | Pathologist | | | | | At | Signature | + +--------+ + + + | ALBUMIN, | 3.9 | 3.5 - 4.7 g/dL | [facility] | | | PLASMA | | | DEPARTMENT | | | (LAB) | | | OF | | | | | | PATHOLOGY | | + +--------+ + + + | BILIRUBIN | 0.6 [...] + + + | ALK PHOS | 141 | 110 - 440 U/L | [facility] | | | | | | DEPARTMENT | | | | | | OF | | | | | | PATHOLOGY | | + +--------+ + + + | AST(SGOT) | 40 (H) | 18 - 36 U/L | [facility] | | | | | | DEPARTMENT | | | | | | OF | | | | | | PATHOLOGY | | + +--------+ + + + | ALT (SGPT) | 26 | 13 - 48 U/L | [facility] | | | | | | DEPARTMENT | | | | | | OF | | | | | | PATHOLOGY | | + +--------+ + + + | TOTAL | 6.7 | 5.9 - 8.2 g/dL | [facility] [...] + + + + + | [facility] | [address] | [place] [address] | | | PATHOLOGY | [address] | | | + + + + + CBC, WITH DIFFERENTIAL (08/01/2011 8:56 AM PDT) + + + + + + | Component | Value | Ref Range | Performed | Pathologist | | | | | At | Signature | + + + + + + | WHITE CELL | 4.5 (L) | 4.9 - 15.5 K/cu | [facility] | | | COUNT | | mm | DEPARTMENT | | | | | | OF | | | | | | PATHOLOGY | | + + + + + + | RED CELL | 5.24 | 4.50 - 5.30 | [facility] | | | COUNT | | M/cu mm | DEPARTMENT | | | | | | OF | | | | | | PATHOLOGY | | + + + + + + | HEMOGLOBIN | 13.0 | 13.0 - 16.0 | [facility] | | | | | g/dL | DEPARTMENT | | | | | | OF | | | | | | PATHOLOGY | | + + + + + + | HEMATOCRIT | 39.3 | 37.0 - 49.0 % | [facility] | | | | | | DEPARTMENT | | | | | | OF | | | | | | PATHOLOGY | | + + + + + + | MCV | 74.9 (L) | 80.0 - 96.0 fL | [facility] | | | | | | DEPARTMENT | | | | | | OF | | | | | | PATHOLOGY | | + + + + + + | MCHC | 33.0 (L) | 33.4 - 35.5 | [facility] | | | | | g/dL | DEPARTMENT | | | | | | OF | | | | | | PATHOLOGY | | + + + + + + | RDW | 21.0 (H) | 11.5 - 15.0 % | [facility] | | | | | | DEPARTMENT | | | | | | OF | | | | | | PATHOLOGY | | + + + + + + | PLATELET | 309 | 150 - 400 K/cu | [facility] [...] | | | | | | Microcytosis + | | | | + + + + + + + + | Specimen | + + | Blood - Blood | + + + + + + + | Performing | Address | City/State/Zipcode | Phone Number | | Organization | | | | + + + + + | [facility] | [address] | [place] [address] | | | PATHOLOGY | [address] | | | + + + + + ORDERS OTHER (08/01/2011 12:00 AM PDT) + + + | Narrative | Performed At | + + + | | | + + + + + | Transcriptions | + + | Lei Crane - 08/06/2011 9:25 AM PDT | + + documented in [...] | acetaminophen (aka TYLENOL) | Given | 08/01/19 | 650 mg | | | | tablet 650 mg 650 mg, oral, | | 12 9:45 | | | | | ONCE, 1 dose, 08/01/11 at 0930 | | AM PDT | | | | + +--------+ +--------+------+------+ +---+---+ | | | +---+---+ + +---------+ +--------+--------+---+ | inFLIXimab (aka REMICADE) IV | New Bag | 08/01/19 | 300 mg | mL/hr | | | 300 mg 300 mg, intravenous, | | 12 10:20 | | | | | ONCE, 1 dose, 08/01/11 at 0930 | | AM PDT | | | | + +---------+ +--------+--------+---+ +---+---+ | | | +---+---+ + +-------+ +-------+---+---+ | loratadine (aka CLARITIN) | Given | 08/01/19 | 10 mg | | | | tablet 10 mg 10 mg, oral, ONCE, | | 12 9:45 | | | | | 1 dose, Thu08/01/11 at 0930 | | AM PDT | | | | + +-------+ +-------+---+---+ +---+---+ | | | +---+---+ documented in this encounter
--- OUTSIDE RECORDS SUMMARY | ~2019-02-23 | XMS | Clinical Summary ---
Demographics + + + | Address | [address] | | | [place] [address] | + + + | Home Phone | | + + + | Preferred Language | Unknown | + + + | Marital Status | Single | + + + | Samaritan Affiliation | Unknown | + + + | Race | Unknown | + + + | Ethnic Group | Unknown | + + + Author + + + | Author | [facility] (Historical as of | | | 10-09-18) | + + + | Organization | [facility] (Historical as of | | | 10-09-18) | + + + | Address | Unknown | + + + | Phone | Unavailable | + + + Support + + +---------+ + | Name | Relationship | Address | Phone | + + +---------+ + | Rui Hyatt | ECON | Unknown | | + + +---------+ + Care Team Providers + +------+ + | Care Publishing Director Name | Role | Phone | + +------+ + | Srinivas Stephens MD | PP | | + +------+ + Allergies Not on File Current Medications Not on file Active Problems Not on file Social History + +-------+ +--------+------+ | Tobacco Use | Types | Packs/Day | Years | Date | | | | | Used | | + +-------+ +--------+------+ | Never Assessed | | | | | + +-------+ +--------+------+ + + + | Sex Assigned at | Date Recorded | | | | + + + | Not on file | | + + + Plan of Treatment Not on file Results Not on filefrom Last 3 Months Insurance +---------+--------+ +------+-------+ + | Payer | Benefi | Subscriber | Type | Phone | Address | | | t Plan | ID | | | | | | / | | | | | | | Group | | | | | +---------+--------+ +------+-------+ + | PREMER[employer] | PREMER | [id number] | | | [address] [address] | | | A BLUE | 0 | | | [place], [place] | | | CARD | | | | [address] | +---------+--------+ +------+-------+ + + +--------+ +--------+ + + | Guarantor Name | Accoun | Relation to | Date | Phone | Billing Address | | | t Type | Patient | of | | | | | | | | | | + +--------+ +--------+ + + | SAHIL ADAMES | Person | Self [birth year] | Home: | [address] | | | al/[place]ryan | | 1995 | [phone] [address] | | | [place] | | | [address] | [place] [address] | + +--------+ +--------+ + +"
--- OUTSIDE RECORDS SUMMARY | ~2019-02-23 | XMS | Encounter Summary ---
Demographics + + + | Address | [address] | | | [place] [address] | + + + | Home Phone | | + + + | Preferred Language | Unknown | + + + | Marital Status | Single | + + + | Anabaptism Affiliation | NON | + + + [...] + | Debora Resendiz | ECON | [address] | | | | | [place] | | | | | [address] | | + + + + + [...] Team Providers + +------+ + | Care Small Parts Shaper Operator Name | Role | Phone | [...] | | Required | ogy | | [place] | [place] | | | | | | [facility] | Mailcode: | | | | | | [place] | [facility] | | | | | | [address] | | | | | | [address] | [place], [place] | | [address] | [address] | | | | | | [place], | Phone: | | | | | | [place] [address] | [phone] | | | | | | | Fax: | | | | | | | [phone] | +--------+ + + + + + Encounter Details +--------+---------+ + + + | Date | Type | Department | Care Team | Description | +--------+---------+ + + + | 11/17/ | Office | Pediatric | Tania Camp MD | Crohn's disease, | | 2013 | Visit | Gastroenterology at | [address] | small and large | | | | [place] | [address] [place], | intestine, | | | | [facility] | [place] [address] | unspecified | | | | [address] | [phone] | complication (HCC) | | | | Mailcode: CDRCP | | (Primary Dx); | | | | [place] | | Abdominal pain, | | | | [place], [place] | | epigastric | | | | [address] | | | | | | [phone] | | | +--------+---------+ + + + [...] + + + | Blood Pressure | 133/79 | 11/17/2013 8:38 AM | | | | | PDT | | + + + + + | Pulse | 72 | 11/17/2013 8:38 AM | | | | | PDT [...] + + + + | Weight | 75 kg (165 lb 5.5 | 11/17/2013 8:38 AM | | | | oz) | PDT | | + + + + + | Height | 175.7 cm (5' 9.17") | 11/17/2013 8:38 AM | | | | | PDT | | + + + + + | Body Mass Index | 24.3 | 11/17/2013 8:38 AM | | | | | PDT | | + + + + + documented in this encounter Patient Instructions Patient Instructions Tania Camp MD - 11/17/2013 9:08 AM PDTFormatting of this note subha ht be different from the original. It was nice to see you in the clinic today! Our plan: 1. Be sure you are signed up for [facility] if you have a computer at home online. 2. Get labs at [facility] 3. Set up labs for every 3 months with our GI nurses - ok to get in [place]. 4. Set up endoscopy and colonoscopy Follow-up: Please schedule your next GI visit [...] out excellent online websites such as: [email or web address].org MayoCitalDoc.com KidshCaseroth.org DoerParagon Vision [email or web address] FAAN.org for information on food allergies IFFGD for functional gastrointestinal disorders For Liver Diseases: AASLD [employer] offer excellent information. For Crohn's or ulcerative colitis information, CCFA.org is a great website. Great YOUTUBE ON IBD MEDS: http://www.BlueYieldibd.com/en/understanding-ibd/cdaaoylljnirk-pyb-khnob-hro-hlufivar-si-ibd-t herapies.html Results of tests: Results of laboratory tests, biopsies or Xrays will be sent to you by [facility]. Please ask at the front office java developer for the code and instructions on how to sign up for this. If you do not have internet access, results will be sent by mail. Questions: If you have non-urgent questions, please send through [facility]. For urgent questions, please call the [facility] GI office at [phone]. [facility] PEDIATRIC GASTROENTEROLOGY [address] [place] [address] PHONE: COLONOSCOPY PREP INSTRUCTIONS PROCEDURE DATE: ARRIVAL TIME: APPROXIMATE PROCEDURE TIME: THE PROCEDURE: This procedure involves looking at the lower bowel, or colon (colonoscopy) using an instrum ent made of thin flexible tubing with a camera on the end. This lets the doctor remove tiss ue samples for microscopic analysis (biopsy) or to remove small growths called polyps (polyp ectomy). For more information about endoscopy (EGD) and colonoscopy see the national website, Gastro kids.org, for information in many languages. BOWEL PREPARATION: For an excellent and safe examination, the colon must be completely empty of stool- squeaky clean! The preparation will cause diarrhea; stools should be clear and watery. This is do ne in order to see the bowel lining well for biopsy or polyp removal. Some children have so me abdominal cramping or may feel nauseated during the prep. WHAT YOU WILL NEED: 238 gram bottle of MiraLAX Powder (over the counter) 1 capful = 17 gm Chocolate Ex-lax squares (over the counter) Dulcolax suppositories (over the counter) Clear Liquids (*No Red colors) PREPARATION: 10 DAYS PRIOR to procedure Do not take aspirin, Ibuprofen (Advil), Naprosyn, or Aleve unless instructed to do so by your bread and pastry baker or doctor managing a shunt in your body. If you take heparin (Lovenox) or aspirin for a heart/ vascular condition or shunt, d iscuss with your doctor and the GI provider. 2 DAYS PRIOR to procedure At 5PM, begin CLEAR LIQUID DIET (NO SOLID FOOD) START LAXATIVES 5 PM: 2 squares of Ex-Lax 1 DAY PRIOR to procedure CLEAR LIQUID DIET- NO SOLID FOOD *NOTHING RED IN COLOR* TAKE MORE LAXATIVES CLEAR LIQUIDS ONLY 8 AM: Take 2 Ex-lax square(s) orally, once. 9 AM: Mix GOLYtely and take 8 oz every 20-30 minutes until full gallon is gone. If stools are not clear by 5pm: Give (per rectum) a Dulcolax suppository to stimulate stooling DAY OF PROCEDURE CLEAR LIQUIDS ARE OK UNTIL 2 hours before the procedure STOP ALL FOOD & DRINK 2 hours prior to the procedure stop everything by mouth including gum or candy. If your child does not follow these instructions, we will have to cancel the procedure for safety. For questions about morning medications, call the PREP CLINIC at [phone] If your child has a cold, cough, or fever prior to this procedure, please call our office 1 -2 days before the schedule appointment so we can determine if the procedure should be adam eduled. We may then offer the slot to another waiting child and family. CLEAR LIQUID DIET NO RED COLORS PLEASE Sports drinks contain important salt replacement: Gatorade, All-Sport, PowerAde Popsicles (without milk or added fruit pieces; Pedialyte makes a great popsicle with impo rtant salt replacement) Clear juice (apple, white grape) Gelatin (Jell-O) Pediasure CLEAR, Ensure CLEAR, and Broth (clear, fat-free, canned) are okay to drink until MIDNIGHT the night prior to the procedure. THE DAY OF THE PROCEDURE Please arrive on time - 90 minutes before the procedure. If you are late, we may cancel. If you need to cancel the procedure the day of or the evening before you are scheduled plea se call [phone] and leave a message including your child s name and date of , an d what procedure is scheduled plus the reason for cancelling. INSURANCE: Please bring your insurance card with you. As a courtesy, our office will contact your [employer] company to get authorization for the procedure; however, this is not a guarantee of p ayment. It is your responsibility to assure your insurance covers the procedure. CHECK-IN: [place] at the admitting desk on the lobby level (by Igor) of [facility]. After registration, go to the procedure area, 8th floor of [facility] ([facility] A nurse or FACILITIES DIRECTOR will put a gown on your child, obtain their weight and vital signs, and [facility] er information. Your child may be given medication to allow them to relax. Your anesthesio logist will speak with you about the sedation plan. The GI doctor performing the procedure will obtain consent, if needed. Just prior to the procedure, your child will be taken to the procedure room. Please be aware that only previously arranged and insurance approved procedures will be don e. We are unable to complete additional procedures that have not been scheduled. TIME: The procedure time is less than 30 minutes for an upper endoscopy and about 45 minutes for colonoscopy. Your child will return from the procedure to the recovery area. The time from arrival to departure from [facility] is about 4 - 5 hours. Biopsy results take up to 10 d ays- we will notify you when they are available. Please sign up for [employer] for faster resu lts. AFTER THE PROCEDURE: We apologize that we may not be able to answer all of your questions due to time limitation s on procedure day; however, we will be happy to schedule a follow up visit to address your concerns. Some children may vomit once or twice following the procedure. If the vomiting persists fo r more that 4 to 6 hours, contact our office. Please contact our Pediatric Gastroenterology Office at [phone] #3 or Toll Free at [phone] if you need any further information. For your child's safety, they will need to be accompanied by and driven home by an adult. documented in this encounter Progress Notes Tania Camp MD - 11/17/2013 8:53 AM PDT PEDIATRIC GASTROENTEROLOGY IBD CONSULTATION for ONGOING MANAGEMENT Jeremias Adames is an 18 y.o. male, who is referred by Tracey Galeas to Pediatric GI Cli vivi accompanied by parents, for follow-up consultation for chief complaint of Crohn's of lar ge and small bowel. . Jeremias Adames has the following medical problems: [...] allergic Vitamin D deficiency Arthralgia of toe Past IBD history: Diagnosed with Crohn's Feb, [...] which there was an adverse reaction: thiopurines alone Current medicines include: Current Outpatient Prescriptions Medication [...] mouth once daily. Indications: VITAMIN D DEFICIENCY Mesalamine (LIALDA) 1.2 g oral tablet,delayed release (DR/EC) Take 2 tablets by mouth o nce daily. Indications: CROHN'S DISEASE MULTIVITAMIN ORAL Take by mouth. Take 1 tablet by mouth Daily. sodium fluoride 1.1 % dental gel FLUORIDEXBID No current facility-administered medications for this visit. Changes in Medications since we last saw patient? no Interval history update: RECENTLY HAD FLARE IN SYMPTOMS STARTING LAST WEEK. SYMPTOMS ARE S OMEWHAT BETTER. Local stool cuture is negative. Patient reports today that stools are 2/day and normal in consistency. Blood or mucus in the stool? no Urgency? no Abdominal pain? Last week Nausea? no. Vomiting? no. Energy level is poor - a lot of fatigue. Appetite is normal. New medical/surgical issues since last visit? Illness last week, but now better ROS: Aphthous ulcers? no Any joint or eye pain? Some foot pain - PCP following Any cough or nasal discharge recently? no Any known clotting disorder? no Any recent fever ? no Any skin problems or rash? no Has weight been stable? yes GI aspects of ROS noted in the Interval History section above. Cardiovascular: Negative Genitourinary:Negative Neurologic: Negative Social history: Lives with Father in [facility]. Missing school? no Medication compliance estimate fair Nutrition: Taking multivitamin? yes Calcium intake adequate? no No Known Allergies Ht 1.757 m (5' 9.17") (51%, Z = 0.03), Wt 75 kg (165 lb 5.5 oz) (79%, Z = 0.80), BP 133/79, Pulse 72, BMI 24.3 kg/(m^2). 81%ile (Z=0.86) based on CDC 2-20 Years BMI-for-age data. [...] no murmurs. Abdomen: normal bowel sounds, soft, non-distention, EPIGASTRIC and right sided tendernes s to palpation, no rebound or guarding, no fullness in the RLQ or palpable masses, no hepato splenomegaly Musculoskeletal: grossly intact without clubbing or edema Neuro: normal gait and speech for age Nodes: no signficant cervical or supraclavicular adenopathy Psychiatric- affect slightly flat Patient reports a pain level of 0 today. ___ No action required ___ See assessment and plan Lab results from last GI visit: Abstract on 06/01/2013 Component Date Value Range WHITE CELL COUNT (K/cu mm) 05/31/2013 5.6 4.0-10.5 RED CELL COUNT (M/cu mm) 05/31/2013 5.93* 4.0-5.50 HEMOGLOBIN (g/dL) 05/31/2013 15.0 13-17 HEMATOCRIT (%) 05/31/2013 46.4 37-50 MCV (fL) 05/31/2013 78.2* 82-100 MCH (pg) 05/31/2013 25.9* 28-35 MCHC (g/dL) 05/31/2013 32.8 31-36.5 PLATELET COUNT (K/cu mm) 05/31/2013 259 140-375 NEUTROPHIL % (%) 05/31/2013 42 - LYMPHOCYTE % (%) 05/31/2013 46.70 - MONOCYTE % (%) 05/31/2013 8.80 - EOS % (%) 05/31/2013 2.0 - BASO % (%) 05/31/2013 0.60 - RDW (%) 05/31/2013 14.6* 11-14.5 MPV (fL) 05/31/2013 10.6 - NEUTROPHIL # (K/cu mm) 05/31/2013 2.33 1.80-8.30 LYMPHOCYTE # (K/cu mm) 05/31/2013 2.56 1.0-4.80 MONOCYTE # (K/cu mm) 05/31/2013 0.49 0-0.90 EOS # (K/cu mm) 05/31/2013 0.11 0-0.40 BASO # 05/31/2013 0.03 0-0.20 ESR (SED RATE) 05/31/2013 3 -20 GLUCOSE, PLASMA (LAB) (mg/dL) 05/31/2013 94 60-200 BUN, PLASMA (LAB) (mg/dL) 05/31/2013 14 7-25 CREATININE PLASMA (LAB) (mg/dL) 05/31/2013 0.74 0.60-1.30 TOTAL PROTEIN, PLASMA (LAB) (g/dL) 05/31/2013 7.6 6.4-8.3 ALBUMIN, PLASMA (LAB) (g/dL) 05/31/2013 4.70 3.40-5.20 CALCIUM, PLASMA (LAB) (mg/dL) 05/31/2013 9.6 8.9-10.7 BILIRUBIN TOTAL (Transcutaneous Bilirubinometer) 05/31/2013 0.4 -<=1.1 ALK PHOS (U/L) 05/31/2013 160 100-390 AST(SGOT) (U/L) 05/31/2013 22 5-43 SODIUM, PLASMA (LAB) (mmol/L) 05/31/2013 140 136-148 POTASSIUM, PLASMA (LAB) (mmol/L) 05/31/2013 4.4 3.5-5.1 CHLORIDE, PLASMA (LAB) (mmol/L) 05/31/2013 105 97-109 TOTAL CO2, PLASMA (LAB) (mmol/L) 05/31/2013 26 22-32 ALT (SGPT) (U/L) 05/31/2013 15 10-58 RUBELLA IGG AB (IU/mL) 05/31/2013 151 ->=15 RUBELLA IGG INTERPRETATION 05/31/2013 immune - Assessment & Plan : This is a [...] allergic Vitamin D deficiency Arthralgia of toe 1. Inflammatory bowel disease The inflammatory bowel is under poor control. The disease activity is more active. I would like to check stool for h. Pylori, and calprotectin. We will set him up for an egd and colonoscopy with biopsies. I gave him the prep. I discussed the utility of an endoscopic procedure with the patient/ family, and explained associated risks in addition to procedural benefits. Risks to endoscopic procedures includin g bleeding, perforation of the intestinal tract and infection. Sedation risks will be discu ssed by the anesthesiologist in charge of the case. I discussed alternatives to the procedur e, and possible risks that might be incurred if the procedure was not performed. We discussed transitioning to adult GI in the summer of 2014. He is working to take charge of his own health. With the MA present with met with him for part of the visit without moth er present. Medications changed today: Added PPI Nutrition support: We recommend a multivitamin, folic acid, and calcium supplement. It is important for patients with Crohn's to have adequate vitamin D and calcium intake. Health care maintenance: Flu shot! Vaccinations. Patient should have flu shot every fall. No live virus vaccinations for our patients on immunosuppressive medications We encourage HPV vaccination in age appropriate children Psychosocial or economic challenges affecting patient's medical care delivery: financial co nstraints. Co-morbidities that would affect sedation risk: asthma An after visit summary was given to the family. I spent at least 35 minutes with family in this visit in [id number] care and care coordin ation. With and without his parents. TANIA CAMP MD [facility] [address] Mailcode: [place] [id number] Lab on 11/17/2013 Component Date Value Range C-REACTIVE PROTEIN (mg/L) 11/17/2013 <2.9 -<10.0 GAMMA GLUTAMYL TRANS (U/L) 11/17/2013 20 12-98 GLUCOSE, PLASMA (LAB) (mg/dL) 11/17/2013 98 60-99 BUN, PLASMA (LAB) (mg/dL) 11/17/2013 9 6-20 CREATININE PLASMA (LAB) (mg/dL) 11/17/2013 0.71 0.46-0.81 SODIUM, PLASMA (LAB) (mmol/L) 11/17/2013 137 136-145 POTASSIUM, PLASMA (LAB) (mmol/L) 11/17/2013 3.9 3.4-5.0 CHLORIDE, PLASMA (LAB) (mmol/L) 11/17/2013 104 97-108 TOTAL CO2, PLASMA (LAB) (mmol/L) 11/17/2013 26 21-32 CALCIUM, PLASMA (LAB) (mg/dL) 11/17/2013 9.0 8.6-10.2 BILIRUBIN TOTAL (mg/dL) 11/17/2013 0.5 0.3-1.2 TOTAL PROTEIN, PLASMA (LAB) (g/dL) 11/17/2013 7.2 6.4-8.2 ALBUMIN, PLASMA (LAB) (g/dL) 11/17/2013 4.1 3.5-4.7 ALK PHOS (U/L) 11/17/2013 123 55-220 AST(SGOT) (U/L) 11/17/2013 6* 15-41 ALT (SGPT) (U/L) 11/17/2013 18 12-60 ANION GAP(ALB CORRECTED) (mmol/L) 11/17/2013 6 4-11 POTASSIUM CMNT 11/17/2013 No Hemo - BILI T CMNT 11/17/2013 No Hemo - AST CMNT 11/17/2013 No Hemo - ANION GAP (mmol/L) 11/17/2013 7 - WHITE CELL COUNT (K/cu mm) 11/17/2013 4.81* 4.90-15.50 RED CELL COUNT (M/cu mm) 11/17/2013 5.50* 4.50-5.30 HEMOGLOBIN (g/dL) 11/17/2013 14.1 13.0-16.0 HEMATOCRIT (%) 11/17/2013 43.4 37.0-49.0 MCV (fL) 11/17/2013 78.9* 80.0-96.0 MCHC (g/dL) 11/17/2013 32.5 - RDW SD (fL) 11/17/2013 38.5 35.1-46.3 PLATELET COUNT (K/cu mm) 11/17/2013 210 150-400 MPV (fL) 11/17/2013 9.7 9.7-12.3 NRBC% (%) 11/17/2013 0.0 0.0-0.3 NRBC# (K/cu mm) 11/17/2013 0.00 0.00-0.02 NEUTROPHIL % (%) 11/17/2013 42.0 41.0-76.0 LYMPHOCYTE % (%) 11/17/2013 46.6* 7.0-41.0 MONOCYTE % (%) 11/17/2013 8.7 3.0-13.0 EOS % (%) 11/17/2013 1.7 0.0-6.0 BASO % (%) 11/17/2013 0.8 0.0-2.0 IMMATURE GRANULOCYTE% (%) 11/17/2013 0.2 0.0-0.6 NEUTROPHIL # (K/cu mm) 11/17/2013 2.02* 2.80-11.10 LYMPHOCYTE # (K/cu mm) 11/17/2013 2.24 0.40-3.20 MONOCYTE # (K/cu mm) 11/17/2013 0.42 0.30-1.30 EOS # (K/cu mm) 11/17/2013 0.08 0.00-0.30 BASO # (K/cu mm) 11/17/2013 0.04 0.00-0.20 IMMATURE GRANULOCYTE# (K/cu mm) 11/17/2013 0.01 0.00-0.03 documented in this enco unter Plan of Treatment + +------+--------+ + + | Name | Type | Priori | Associated Diagnoses | Order Schedule | | | | ty | | | + +------+--------+ + + | CALPROTECTIN, FECAL | Lab | Routin | Crohn's disease, | Ordered: 11/17/2013 | | | | e | small and large | | | | | | intestine, | | | | | | unspecified | | | | | | complication (HCC) | | + +------+--------+ + + | H. PYLORI AG, FECAL | Lab | Routin | Crohn's disease, | Ordered: 11/17/2013 | | EIA | | e | small and large | | | | | | intestine, | | | | | | unspecified | | | | | | complication (HCC) | | + +------+--------+ + + documented as of this encounter Results SEDIMENTATION RATE (11/17/2013 9:36 AM PDT) + [...] [facility] | [address] | [place] [address] | | | SERVICES, CORE | PARK [...] | + + + + + | [facility] | [address] | [place] [address] | | | SERVICES, CORE | PARK [...] [facility] | [address] | [place] [address] | | | SERVICES, SPECIAL | PARK [...] + | [facility] | [address] | [place] [address] | | | SERVICES, SPECIAL | PARK [...] | + + + + + | [facility] | [address] | [place] [address] | | | SERVICES, CORE | PARK [...] and new reporting units as of | [facility] | | 07/27/2013. | LABORATORY | | | SERVICES, CORE | + + + + + + + + | Performing | Address | City/State/Zipcode | Phone Number | | Organization | | | | + + + + + | [facility] | [address] | [place] [address] | | | SERVICES, CORE | [address] | | | + + + + + documented in this encounter Visit Diagnoses + + | Diagnosis | + + | Crohn's disease, small and large intestine, unspecified complication - Primary | + + | Abdominal pain, epigastric | + + documented in this encounter
--- OUTSIDE RECORDS SUMMARY | ~2019-02-23 | XMS | Encounter Summary ---
Demographics + + + | Address | [address] | | | [place] [address] | + + + | Home Phone [...] + | Debora Resendiz | ECON | [address] | | | | | [place] | | | | | [address] | | + + + + + [...] Providers + +------+ + | Care Supervisor Alum Plant Name | Role | Phone | + [...] Gastroenterology at | [address] [facility] | (Adult GI) | | | | [place] | [address] [place], | | | | | [facility] | [place] [address] | | | | | [address] | [phone] | | | | | Mailcode: [facility] | | | | | | [place] | | | | | | [place], [place] | | | | | | [address] | | | | | | [phone] | | | +--------+ + + + [...]
--- OUTSIDE RECORDS SUMMARY | ~2019-02-23 | XMS | Encounter Summary ---
Demographics + + + | Address | [address] | | | [place] [address] | + + + | Home Phone [...] + | Debora Resendiz | ECON | [address] | | | | | [place] | | | | | [address] | | + + + + + [...] Team Providers + +------+ + | Care Tower Equipment Repairer Name | Role | Phone | + [...] | | | [place] | [address] [place], | | | | | [facility] | [place] [address] | | | | | [address] | [phone] | | | | | Mailcode: CDRCP | | | | | | [place] | | | | | | [place], [place] | | | | | | [address] | | | | | | [phone] | | | +--------+ + + + [...]
--- OUTSIDE RECORDS SUMMARY | ~2019-02-23 | XMS | Encounter Summary ---
Demographics + + + | Address | [address] | | | [place] [address] | + + + | Home Phone [...] + | Debora Resendiz | ECON | [address] | | | | | [place] | | | | | [address] | | + + + + + [...] Team Providers + +------+ + | Care Devops Engineer Name | Role | Phone | [...] | +--------+ + + + + | 01/09/ | Telephone | Pediatric | Tania Foster MD | Test Results | | 2014 | | Gastroenterology at | [address] | | | | | [place] | [address] [place], | | | | | [facility] | [place] [address] | | | | | [address] [facility] | [phone] | | | | | Mailcode: SU[facility]AR | | | | | | [place] | | | | | | [place], [place] | | | | | | [address] | | | | | | [phone] | | | +--------+ + + + [...] + | Diagnosis | + + | Helicobacter positive gastritis - Primary Helicobacter pylori (H. pylori) | + + documented in this encounter"
--- OUTSIDE RECORDS SUMMARY | ~2019-02-23 | XMS | Encounter Summary ---
Demographics + + + | Address | [address] | | | [place] [address] | + + + | Home Phone [...] + | Debora Resendiz | ECON | [address] | | | | | [place] | | | | | [address] | | + + + + + [...] Team Providers + +------+ + | Care Surgery Aide Name | Role | Phone | [...] | Support | Gastroenterology at | [address] [facility] [address] | | | | Staff | [place] | [facility] | | | | | [facility] | [place] [address] | | | | | [address] [facility] | | | | | | Mailcode: [facility]CP | | | | | | [place] | | | | | | [place], [place] | | | | | | [address] | | | | | | [phone] | | | +--------+ + + + [...] the followin. Pt and family referred to [employer] for free sharps container, access to on-line [...]
--- OUTSIDE RECORDS SUMMARY | ~2019-02-23 | XMS | Encounter Summary ---
Demographics + + + | Address | [address] | | | [place] [address] | + + + | Home Phone [...] + | Debora Resendiz | ECON | [address] | | | | | [place] | | | | | [address] | | + + + + + [...] Team Providers + +------+ + | Care Superintendent Warehouse Name | Role | Phone | + [...] + + + + | 01/29/ | Telephone | Pediatric | Tania Foster MD | Lab Results | | 2011 | | Gastroenterology at | [address] | | | | | [place] | [address] [place], | | | | | [facility] | [place] [address] | | | | | [address] [facility] | [phone] | | | | | Mailcode: SU[facility]AR | | | | | | [place] | | | | | | [place], [place] | | | | | | [address] | | | | | | [phone] | | | +--------+ + + + [...]
--- OUTSIDE RECORDS SUMMARY | ~2019-02-23 | XMS | Encounter Summary ---
Demographics + + + | Address | [address] | | | [place] [address] | + + + | Home Phone [...] + | Debora Resendiz | ECON | [address] | | | | | [place] | | | | | [address] | | + + + + + [...] Team Providers + +------+ + | Care Portable Sawmill Operator Name | Role | Phone | [...] | | Gastroenterology at | [address] [facility] | | | | | [place] | Herminia [facility], | | | | | [facility] | [place] [address] | | | | | [address] | [phone] | | | | | Mailcode: [facility] | | | | | | [place] | | | | | | [place], [place] | | | | | | [address] | | | | | | [phone] | | | +--------+ + + + [...]
--- OUTSIDE RECORDS SUMMARY | ~2019-02-23 | XMS | Encounter Summary ---
Demographics + + + | Address | [address] | | | [place] [address] | + + + | Home Phone [...] Author | [facility] | + + + | Organization | [facility] | + + + | Address | Unknown | + + + | Phone | Unavailable | + + + Support + + + + + | Name | Relationship | Address | Phone | + + + + + | Debora Resendiz | ECON | [address] | | | | | [place] | | | | | [address] | | + + + + + [...] Team Providers + +------+ + | Care Client Coordinator Name | Role | Phone | [...] | | Gastroenterology at | [address] [facility] | behavior on | | | | [place] | [address] [place], | Prednisone) | | | | [facility] | [place] [address] | | | | | [address] | [phone] | | | | | Mailcode: CDRCP | | | | | | [place] | | | | | | [place], [place] | | | | | | [address] | | | | | | [phone] | | | +--------+ + + + [...]
--- OUTSIDE RECORDS SUMMARY | ~2019-02-23 | XMS | Encounter Summary ---
Demographics + + + | Address | [address] | | | [place] [address] | + + + | Home Phone [...] + + + | Author | [facility] | + + + | Organization | [facility] | + + + | Address | Unknown | + + + | Phone | Unavailable | + + + Support + + + + + | Name | Relationship | Address | Phone | + + + + + | Debora Resendiz | ECON | [address] | | | | | [place] | | | | | [address] | | + + + + + [...] Team Providers + +------+ + | Care Machine Tech Name | Role | Phone | + [...] Required | ogy | enteritis of | [place] | [address] | | | | | small | PERMANENTE | Mailcode: | | | | | intestine | [place] | CDRCP | | | | | with large | [address] | [place] | | | | | intestine | [place] | [place], [place] | | | | | ([facility]) | [address] | [address] | | | | | Encounter | [place], | Phone: | | | | | for | [place] [address] | [phone] | | | | | long-term | | Fax: | | | | | (current) | | [phone] | | | | | use of [...] Visit | Gastroenterology at | [address] [facility] | small and large | | | | [place] | [address] [place], | intestine, without | | | | [facility] | [place] [address] | complications (HCC) | | | | [address] | [phone] | (Primary Dx) | | | | Mailcode: CDRCP | | | | | | [place] | | | | | | [place], [place] | | | | | | [address] | | | | | | [phone] | | | +--------+---------+ + + + [...] Be sure you are signed up for Training Amigo if you have a computer at home [...] out excellent online websites such as: GIKids.org MayoCovarioinic.com KidshiVantage Health Analyticsth.org You Software/GI FAAN.org for information on food allergies IFFGD for functional gastrointestinal disorders For Liver Diseases: AASLD Spanish [employer] offer excellent information. For Crohn's or ulcerative colitis information, CCFA.org is a great website. Great YOUTUBE ON IBD MEDS: http://www.OpenGammad.com/en/understanding-ibd/chqynnjhvxdoj-fre-hayhe-krq-njxquegx-wl-ibd-t herapies.html Results of tests: Results of laboratory tests, biopsies or Xrays will be sent to you by [employer]. Please ask at the senior front end web developer for the code and instructions on how to sign up for this. If you do not have internet access, results will be sent by mail. Questions: If you have non-urgent questions, please send through [employer]. For urgent questions, please call the [facility] GI office at [phone]. documented in this encounter Progress Notes Tania [...] chronic gastritis with focal active inflammation. 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 Case seen by: Shwetha Sosa M.D./Surgical Pathology Resident Torin Robert M.D./Pathologist :[place] (Analyte specific reagents are used in many laboratory tests necessa ry for standard medical care. This test was developed and its performance characteristics determine by [facility]. It has not been nan ared or [...] at least 50% of the time in xfop-wx-joag patient edu cation, medical care delivery and in care coordination. TANIA FOSTER MD [facility] AT [address] Mailcode: [place] [id number] Lab on 01/13/2014 Component Date Value Range [...] | + + + + + | [facility] | [address] [facility] | [place] [address] | | | SERVICES, CORE | CRISTIAN [...] | + + + + + | [facility] | [address] | [place] [address] | | | SERVICES, VENU | CRISTIAN MARTINEZ | | | + + + + + documented in this encounter Visit Diagnoses + + | Diagnosis | + + | Crohn's disease, small and large intestine, without complications - Primary | + + documented in this encounter
--- OUTSIDE RECORDS SUMMARY | ~2019-02-23 | XMS | Encounter Summary ---
Demographics + + + | Address | [address] | | | [place] [address] | + + + | Home Phone [...] + | Debora Resendiz | ECON | [address] | | | | | [place] | | | | | [address] | | + + + + + [...] Providers + +------+ + | Care Medical Collections Name | Role | Phone | + +------+ + | Tracey Galeas MD | PCP | Unavailable | + +------+ + Encounter Details +--------+ + + + + | Date | Type | Department | Care Team | Description | +--------+ + + + + | 05/03/ | Clinical | Pediatric | | | | 2012 | Support | Hematology Oncology | | | | | Staff | at [facility] | | | | | | [facility] | | | | | | [address] | | | | | | Mailcode: DCH10C | | | | | | [place] | | | | | | [place], [place] | | | | | | [address] | | | | | | [phone] | | | +--------+ + + + [...] + + + | Blood Pressure | 138/71 | 05/03/2012 1:30 PM | | | | | PDT | | + + + + + | Pulse | 71 | 05/03/2012 1:30 PM | | | | | PDT | | + + + + + | Temperature | 36.8 C (98.2 F) | 05/03/2012 1:30 PM | | | | | PDT | | + + + + + | Respiratory Rate | 12 | 05/03/2012 1:30 PM | | | | | PDT | | + + + + + | Oxygen Saturation | - | - | | + + + + + | Inhaled Oxygen | - | - | | | Concentration | | | | + + + + + | Weight | 67.9 kg (149 lb 11.1 | 05/03/2012 8:55 AM | | | | oz) | PDT | | + + + + + | Height | 172.7 cm (5' 7.99") | 05/03/2012 8:55 AM | | | | | PDT | | + + + + + | Body Mass Index | 22.77 | 05/03/2012 8:55 AM | | | | | PDT | | + + + + + documented in this encounter Progress Notes Jennifer Lucas RN - 05/03/2012 9:23 AM Day arrived in the infusion room accompan ied by his mother. He denies any problems with abdominal pain or break through bleeding. Mom states that he has been on sudefed for a week for a cold and missed Lacrosse practice all l ast week. Sherron Purcell has been paged. Jeremias had consistently high systolic BP's throughout his infusion. He had no other s/s of adverse side effects. He was observed for 30 min. Post infusion and dcd. From the clinic. Nathalie HUNTER was dcd. docume nted in this encounter Plan of Treatment Not on filedocumented as of this encounter Procedures + +--------+ + + + | Procedure Name | Priori | Date/Time | Associated Diagnosis | Comments | | | ty | | | | + +--------+ + + + | CBC AND AUTO DIFF | Routin | 05/03/2012 | Crohn's disease, | Results for this | | | e | 9:08 AM | small and large | procedure [...] + | CBC, WITH | Routin | 05/03/2012 | Crohn's disease, | Results for this | | DIFFERENTIAL | e | 9:08 AM | small and large | procedure [...] + | LIVER SET | Routin | 05/03/2012 | High risk | Results for this | | (AST,ALT,BILI | e | 9:08 AM | medications (not | procedure are in the | | TOTAL,BILI | | PDT | anticoagulants) | results section. | | [...] + + | NURSING | Routin | 05/03/2012 | High risk | | | COMMUNICATION #3 - | e | 9:04 AM | medications (not | | | [facility]ACON | | PDT | anticoagulants) | | | | | [...] + + | NURSING | Routin | 05/03/2012 | High risk | | | COMMUNICATION #2 - | e | 9:04 AM | medications (not | | | BEACON | | PDT | anticoagulants) | | | | | [...] + + | NURSING | Routin | 05/03/2012 | High risk | | | COMMUNICATION #1 - | e | 9:04 AM | medications (not | | | BEACON | | PDT | anticoagulants) | | | | | [...] this encounter Results CBC AND AUTO DIFF (05/03/2012 9:08 AM PDT) + + + + + + | Component | Value | Ref Range | Performed | Pathologist | | | | | At | Signature | + + + + + + | WBC COUNT | 4.7 (L) | 4.9 - 15.5 K/cu | [facility] | | | | | mm | LABORATORY | | | | | | SERVICES, | | | | | | CORE | | + + + + + + | RED CELL | 5.17 | 4.50 - 5.30 | [facility] | [...] + + + + | HEMATOCRIT | 37.8 | 37.0 - 49.0 % | [facility] | | | | | | LABORATORY | | | | | | SERVICES, | | | | | | CORE | | + + + + + + | MCV | 73.1 (L) | 80.0 - 96.0 fL | [facility] | | | | | | LABORATORY | | | | | | SERVICES, | | | | | | CORE | | + + + + + + | MCHC | 33.1 (L) | 33.4 - 35.5 | [facility] | | | | | g/dL | LABORATORY | | | | | | SERVICES, | | | | | | CORE | | + + + + + + | RDW | 18.0 (H) | 11.5 - 15.0 % | [facility] | | | | | | LABORATORY | | | | | | SERVICES, | | | | | | CORE | | + + + + + + | PLATELET | 197 | 150 - 400 K/cu | [facility] | | | COUNT | | mm | LABORATORY | | | | | | SERVICES, | | | | | | CORE | | + + + + + + | NEUTROPHIL | 51 | 41 - 76 % | [facility] | | | % | | | LABORATORY | | | | | | SERVICES, | | | | | | CORE | | + + + + + + | LYMPHOCYTE | 34 | 7 - 41 % | [facility] [...] + | EOS % | 3 | 0 - 6 % | [facility] [...] + + + + | NEUTROPHIL | 2.4 (L) | 2.8 - 11.1 K/cu | [facility] | | | # | | mm | LABORATORY | | | | | | SERVICES, | | | | | | CORE | | + + + + + + | LYMPHOCYTE | 1.6 | 0.4 - 3.2 K/cu | [facility] [...] | + + + + + | [facility] | [address] [facility] | [place] [address] | | | SERVICES, CORE | [address] | | | + + + + + LIVER SET (AST,ALT,BILI TOTAL,BILI DIRECT,ALK PHOS,ALB,PROT TOTAL) (05/03/2012 9:08 AM PDT ) + +---------+ + + [...] + + + | ALK PHOS | 199 | 55 - 220 U/L | [facility] | | | | | | LABORATORY | | | | | | SERVICES, | | | | | | CORE | | + +---------+ + + + | AST(SGOT) | 16 (L) | 18 - 36 U/L | [...] +---------+ + + + | TOTAL | 6.5 | 5.9 - 8.2 g/dL | [facility] [...] | + + + + + | [facility] | [address] | [place] [address] | | | SERVICES, CORE | CRISTIAN [...] Nausea Nausea alone | + + | Encounter for therapeutic drug monitoring | + + documented in this encounter Administered Medications + +--------+ +--------+------+------+ | Medication Order | MAR | Action | Dose | Rate | Site | | | Action | Date | | | | + +--------+ +--------+------+------+ | acetaminophen (aka TYLENOL) | Given | 05/04/19 | 650 mg | | | | tablet 650 mg 650 mg, oral, | | 13 9:20 | | | | | ONCE, 1 dose, 05/03/12 at 0945 | | AM PDT | | | | + +--------+ +--------+------+------+ +---+---+ | | | +---+---+ + +---------+ +--------+--------+---+ | inFLIXimab (aka REMICADE) IV | New Bag | 05/04/19 | 400 mg | mL/hr | | | 400 mg 400 mg, intravenous, | | 13 11:02 | | | | | ONCE, 1 dose, 05/03/12 at 1100 | | AM PDT | | | | + +---------+ +--------+--------+---+ +---+---+ | | | +---+---+ + +-------+ +-------+---+---+ | loratadine (aka CLARITIN) | Given | 05/04/19 | 10 mg | | | | tablet 10 mg 10 mg, oral, ONCE, | | 13 9:20 | | | | | 1 dose, 05/03/12 at 0945 | | AM PDT | | | | + +-------+ +-------+---+---+ +---+---+ | | | +---+---+ documented in this encounter
--- OUTSIDE RECORDS SUMMARY | ~2019-02-23 | XMS | Encounter Summary ---
Demographics + + + | Address | [address] | | | [place] [address] | + + + | Home Phone [...] + | Debora Resendiz | ECON | [address] | | | | | [place] | | | | | [address] | | + + + + + [...] Team Providers + +------+ + | Care Envelope Stamping Machine Operator Name | Role | Phone [...] | [address] | [address] | | | | | small | Anam | Dr | | | | | intestine | [place] | Mailcode: | | | | | with large | [place], [place] | DCH10C | | | | | intestine | [address] | [place] | | | | | (HCC) | Phone: | [place], [place] | | | | | Anorexia | [phone] | [address] | | | | | Pre-procedur | Fax: | Phone: | | | | | e Diagnoses | [phone] | [phone] | | | | | | | Fax: | | | | | Procedures | | [phone] | | | | | CA | | | | | | | INFLIXIMAB | | | | | | | INJECTION, | | | | | | | 10 MG CA | | | | | | | THR/PRPH/DX | | | | | | | IV INF,IN | | | | | | | CA | | | | | | | THER/PROPH/D | | | | | | | IAG IV | | | +--------+--------+ + + + + Encounter Details +--------+---------+ + + + | Date | Type | Department | Care Team | Description | +--------+---------+ + + + | 07/03/ | Office | Hematology | Tania Foster MD | High risk | | 2011 | Visit | Oncology at [facility] [address] | [address] [facility] | medications (not | | | | [facility] [address] | [place], | anticoagulants) | | | | Mailcode: DCH10C | [place] [address] | long-term use | | | | [place] | [phone] | (Primary Dx) | | | | [place], [place] | | | | | | [address] | | | | | | [phone] | | | +--------+---------+ + + + [...] Instructions Patient Instructions Sherron Guillen NP - 07/04/2011 4:59 PM PDT Next Remicade in 6 weeks. documented in this encounter Progress Notes Sherron Guillen NP - 07/04/2011 4:17 PM PDTFormatting of this note might be differe nt from the original. PEDIATRIC GASTROENTEROLOGY IBD FOLLOW-UP CONSULTATION Jeremias Adames is an 15 y.o. male, who is referred by Tracey Galeas to [facility] today accompanied by his father, for a scheduled Remicade infusion. Step dad reports that Jeremias has been feeling much better, eating them out of house and ho me, active Without complaints of pain. Patient Active Problem List Diagnoses Weight loss Diarrhea Heartburn Anemia Abdominal pain, acute, right upper quadrant Nausea Crohn's disease, small and large intestine with 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, severe duodenit is Gastric ulcer Anorexia Helicobacter positive gastritis Past IBD history: Diagnosed with Crohn's disease 02/2111. Hospitalized 03/2011 for IV steroids and to initiate Remicade after colonoscopy demonstrated progression of disease despite outpatient therapy. Medications that failed prior to changing to Remicade or Humira? Oral steroids with imuran and mesalamine. Current medicines include: Current Outpatient Prescriptions Medication Sig amoxicillin 500 mg Oral Tablet Take 500 mg by mouth every twelve hours. For 14 days azaTHIOprine (IMURAN) 50 mg Oral Tablet Take 3 Tabs by mouth once daily. Take at hs, on empty stomach Indications: Crohn's Disease clarithromycin 250 mg Oral Tablet Take 500 mg in the Am and 250 mg in the PM for 14 day s ergocalciferol 50,000 unit Oral Capsule Take 1 Cap by mouth every seven days. mesalamine 1,000 mg Rectal Suppository Insert 1 Suppository rectally once daily at [facility]. Indications: crohn mesalamine EC 400 mg Oral Tablet, Delayed [...] then decrease by 5 mg every Thursday. No current facility-administered medications for this visit. Facility-Administered Medications Ordered in Other Visits Medication Dose Route Frequency Provider Last Rate Last Dose acetaminophen (aka TYLENOL) tablet 650 mg 650 mg Oral ONCE Tania Landrum MD acetaminophen (aka TYLENOL) tablet 650 mg 650 mg Oral Q4H PRN Tania Landrum MD dextrose 5%-NaCl 0.45% IV infusion 100 mL/hr Intravenous CONTINUOUS Tania Landrum MD diphenhydrAMINE (aka BENADRYL) injection 25 mg 25 mg Intravenous Q4H PRN Tania Landrum MD diphenhydrAMINE (aka BENADRYL) injection 25 mg 25 mg Intravenous PRN Tania Landrum MD EPINEPHrine (aka ADRENALIN) injection 0.3 mg 0.3 mg Subcutaneous PRN Tania Landrum MD EPINEPHrine (aka ADRENALIN) injection 0.3 mg 0.3 mg Intravenous PRN Tania Landrum MD hydrocortisone sodium succinate (PF) (aka SOLU-CORTEF) injection 60 mg 60 mg Intraveno us PRN Tania Landrum MD inFLIXimab (aka REMICADE) IV 300 mg 300 mg Intravenous ONCE Tania Landrum MD loratadine (aka CLARITIN) tablet 10 mg 10 mg Oral ONCE Tania Landrum MD Changes in Medications since we last saw patient? Tapering prednisone, now on 35mg Interval history update: Patient reports today that stools are 1-2/day and formed in consistency. Blood or mucus in the stool? no Urgency? no Abdominal pain? no Nausea? no. Vomiting? no. Energy level is good. Appetite is great. New medical/surgical issues since last visit? None ROS: Aphthous ulcers? no Any joint or eye pain? no Any cough or nasal discharge recently? no Any known clotting disorder? no Any recent fever ? no Any skin problems or rash? no Has weight been stable? gaining GI aspects of ROS noted in the Interval History section above. Cardiovascular: Negative Genitourinary:Negative Neurologic: Negative Social history: Lives with mother and step father, brother and sister. Missing school? 9th grade and not missing much, just for appointments, Medication compliance estimate -good Nutrition: Taking multivitamin? yes Calcium intake adequate? yes No Known Allergies Ht 167 cm (5' 5.75") (40 %ile), Wt 56.9 kg (125 lbs 7.1 oz) (56 %ile), Weight for age(%) 5 5.81%, BMI for age(%) 59.80%, Length for age(%) 39.81%, BP 137/75, Pulse 80, Temperature 3 7 C (98.6 F), Temperature source Oral, RR 16. (Taken on ThuJuly 04, 2011 10:11 AM ) Examination: Appearance: alert, active and in no apparent distress. Skin: turgor normal, capillary refill brisk, no rashes, petechiae HEENT: normocephalic, PERRLA , sclera nonicteric,nose without discharge, mouth no aphthous lesions, mucous membranes moist, pharynx unremarkable Neck: supple, without thyromegaly Chest: clear to auscultation bilaterally. CV: regular sinus rhythm, no murmurs. Abdomen: normal bowel sounds, soft, no distention, no tenderness to palpation, no rebound or guarding, very slight fullness in the RLQ but not tender, no palpable masses, no hepatos plenomegaly Musculoskeletal: grossly intact without clubbing or edema Neuro: normal gait and speech for age Nodes: no significant cervical or supraclavicular adenopathy Psychiatric- affect upbeat, cheerful Patient reports a pain level of 0 today. _X__ No action required ___ See assessment and plan Lab results from last GI visit: Recent Labs Basename 07/04/11 0904 06/19/11 1311 05/25/11 1417 AST 17* 27 15 ALT 15 24 9* TBILI 0.5 0.6 0.2 AP 82* 116 181 ALB 3.5 3.3* 4.3 TP 6.1 6.3 7.6 Recent Labs Basename 07/04/11 0904 06/19/11 1311 05/25/11 1417 04/22/11 1520 WBC 6.4 10.6 11.8* -- RBC 4.77 5.32* 5.91* -- HB 11.3* 12.2* 13.3 -- HCT 34.9* 37.6 41.8 -- PLT 276 314 415* -- NEUTROPERC 42 87* 55.0 -- BANDPCT -- -- 34.0 -- LYMPHPERC 46* 7 6.0 -- MONOPERC 10 5 4.0 -- BASOPERC 1 0 1.0 -- EOSPERC 1 1 -- 0.3 Assessment : This is a patient with the following chronic medical conditions: Patient Active Problem List Diagnoses Weight loss Diarrhea Heartburn Anemia Abdominal pain, acute, right upper quadrant Nausea Crohn's disease, small and large intestine with 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, severe duodenit is Gastric ulcer Anorexia Helicobacter positive gastritis Jeremias reports significant improvement in symptoms, good appetite and weight gain. CBC elizabeth ws Hgb and Hct consistently sliding lower. Plan: 1. There were no changes made in the remaining listed GI medications. Prednisone taper will be reviewed by Dr. Foster. 2. Labs or imaging ordered are listed below, including CBC, liver set 3. Education: For further information on GI topics, we direct our families to www:GastroKids.org and www.CCFA.org 4. Health care maintenance Transfill Technician exam every 2 years. Flu shot reminder: done Note: Immunosuppressed patients on Remicade, Humira, Cimzia, chronic steroids, methotrexate , imuran or 6-MP should not have live virus vaccinations , including the nasal flu mist, MMR or Varicella vaccination. 5. Next recommended follow-up in GI clinic: 6 weeks for Remicade [facility] GASTROENTEROLOGY HEMATOLOGY ONCOLOGY [employer] [facility] Mailcode: Dch10c [place] [facility] [address] documented in t his encounter Plan of Treatment Not on filedocumented as of this encounter Visit Diagnoses + + | Diagnosis | + + | High risk medications (not anticoagulants) long-term use - Primary Encounter for | | long-term (current) use of other medications | + + documented in this encounter
--- OUTSIDE RECORDS SUMMARY | ~2019-02-23 | XMS | Encounter Summary ---
Demographics + + + | Address | [address] | | | [place] [address] | + + + | Home Phone | | + + + | Preferred Language | Unknown | + + + | Marital Status | Single | + + + | Gnosticism Affiliation | NON | + + + [...] + | Debora Resendiz | ECON | [address] | | | | | [place] | | | | | [address] | | + + + + + [...] Team Providers + +------+ + | Care Wan Support Specialist Name | Role | Phone | [...] | +--------+ + + + + | 04/22/ | Telephone | Pediatric | Tania Foster MD | Abdominal pain | | 2011 | | Gastroenterology at | [address] | | | | | [place] | [place], | | | | | [facility] | [place] [address] | | | | | [address] [place] [address] | [phone] | | | | | Mailcode: SU[place]UMAR | | | | | | [place] | | | | | | [place], [place] | | | | | | [address] | | | | | | [phone] | | | +--------+ + + + [...]
--- OUTSIDE RECORDS SUMMARY | ~2019-02-23 | XMS | Encounter Summary ---
Demographics + + + | Address | [address] | | | [place] [address] | + + + | Home Phone [...] + | Debora Resendiz | ECON | [address] | | | | | [place] | | | | | [address] | | + + + + + [...] Team Providers + +------+ + | Care Jeeper Operator Name | Role | Phone | + +------+ + | Tracey Galeas MD | PCP | Unavailable | + +------+ + Encounter Details +--------+------+ + + + | Date | Type | Department | Care Team | Description | +--------+------+ + + + | 01/13/ | Lab | Lab Center at [facility] | | Crohn's disease, | | 2013 | | 7th Floor [address] | | small and large | | | | [address] [place], | | intestine with | | | | [place] [address] | | granuloma in the | | | | [phone] | | colon, severe | | | [...] [facility] | [address] | [place] [address] | | | SERVICES, VENU | CRISTIAN [...] [facility] | [address] | [place] [address] | | | SERVICES, CORE | [address] [...] | + + + + + | [facility] | [address] | [place] [address] | | | SERVICES, CORE | [address] [...] + + | [facility] | [address] [facility] | [place] [address] | | | SERVICES, SPECIAL | [address] | | | | IMM + COAG | | | | + + + + + documented in this encounter Visit Diagnoses + + | Diagnosis | + + | Crohn's disease, small and large intestine, without complications | + + documented in this encounter"
--- OUTSIDE RECORDS SUMMARY | ~2019-02-23 | XMS | Encounter Summary ---
Demographics + + + | Address | [address] | | | [place] [address] | + + + | Home Phone [...] + | Debora Resendiz | ECON | [address] | | | | | [place] | | | | | [address] | | + + + + + [...] Team Providers + +------+ + | Care Merchandising Lead Name | Role | Phone | [...] | | | [place] | [address]inia [facility], | | | | | [facility] | [place] [address] | | | | | [address] | [phone] | | | | | Mailcode: CDR | | | | | | [place] | | | | | | [place], [place] | | | | | | [address] | | | | | | [phone] | | | +--------+--------+ + + + [...]
--- OUTSIDE RECORDS SUMMARY | ~2019-02-23 | XMS | Encounter Summary ---
Demographics + + + | Address | [address] | | | [place] [address] | + + + | Home Phone | | + + + | Preferred Language | Unknown | + + + | Marital Status | Single | + + + | Zoroastrianism Affiliation | NON | + + + [...] + | Debora Resendiz | ECON | [address] | | | | | [place] | | | | | [address] | | + + + + + [...] Providers + +------+ + | Care Liquor Merchant Name | Role | Phone | + [...] | | | Griselda | Herminia Yepez [facility] | | | | | [facility] | [place] [address] | | | | | [address] [facility] | [phone] | | | | | Mailcode: SUK[place]AR | | | | | | [place] | | | | | | [place], [place] | | | | | | [address] | | | | | | [phone] | | | +--------+ + + + [...] + + | THIOPURINE | Routin | 05/25/2011 | | Results for this | | METABOLITES | e | 2:17 PM | | procedure are in the | | | | PDT | | results section. | + +--------+ + + + documented in this encounter Results THIOPURINE METABOLITES (05/25/2011 2:17 PM PDT) + +---------+ + + + | Component | Value | Ref Range | Performed | Pathologist | | | | | At | Signature | + +---------+ + + + | 6-TGN | 138 (A) | 230 - 400 | [facility] | | | (THIOPURINE | | pmol/8x10 8 RBC | LABORATORIE | | | | | | S | | | METABOLITE) | | | | | + +---------+ + + + | 6-[facility] | 623 | <5,700 | [facility] | | | [...] + + + | [facility] | [address] | [place] [address] | | | LABORATORIES | [address]VD | | | + + + + + documented in this encounter Visit Diagnoses Not on filedocumented in this encounter"
--- OUTSIDE RECORDS SUMMARY | ~2019-02-23 | XMS | Encounter Summary ---
Demographics + + + | Address | [address] | | | [place] [address] | + + + | Home Phone [...] + | Debora Resendiz | ECON | [address] | | | | | [place] | | | | | [address] | | + + + + + [...] Team Providers + +------+ + | Care Cyber Security Analyst Name | Role | Phone | [...] | | Densitometry | Crohn's | Tania Landrum MD | [facility] | | | | | disease, | [address] | [address] | | | | | small and | [address] | [address] | | | | | large | Herminia Yepez | Mailcode: | | | | | intestine | [place], [place] | [address] | | | | | ([facility]) | [address] | for Health | | | | | Procedures | Phone: | and Healing, | | | | | BONE DENSITY | [phone] | [address] | | | | | PROCEDURE | Fax: | [place], [place] | | | | | | [phone] | [address] | | | | | | | Phone: | | | | | | | [phone] | | | | | | | Fax: | | | | | | | [phone] | +--------+--------+ + + + + Reason for Visit + + + | Reason | Comments | + + + | Follow-up visit | | + + + PROC - [...] [address] | [address] | | | | | small | [address] | | | | | intestine | [address] | Mailcode: | | | | | with large | [place], [place] | DCH10C | | | | | intestine | [address] | [place] | | | | | (HCC) | Phone: | [place], [place] | | | | | Procedures | [phone] | [address] | | | | | MD | Fax: | Phone: | | | | | INFLIXIMAB | [phone] | [phone] | | | | | INJECTION, | | Fax: | | | | | 10 MG MD | | [phone] | | | | | THER/PROPH/D | | | | | | | IAG IV MD | | | | | | | THR/PRPH/DX | | | | | | | IV INF,IN | | | +--------+--------+ + + + + Encounter Details +--------+---------+ + + + | Date | Type | Department | Care Team | Description | +--------+---------+ + + + | 08/23/ | Office | Pediatric | Tania Camp MD | Crohn's disease, | | 2012 | Visit | Gastroenterology at | [address] [facility] | small and large | | | | [address] | [address] [place], | intestine with | | | | [facility] | [place] [address] | granuloma in the | | | | [address] | [phone] | colon, severe | | | | Mailcode: CDRCP | | duodenitis (Primary | | | | [place] | | Dx) | | | | [place], [place] | | | | | | [address] | | | | | | [phone] | | | +--------+---------+ + + + [...] + + + | Blood Pressure | 132/55 | 08/23/2012 11:47 AM | | | | | PDT | | + + + + + | Pulse | 81 | 08/23/2012 11:47 AM | | | | | PDT [...] + + + + | Weight | 69.6 kg (153 lb 7 | 08/23/2012 11:47 AM | | | | oz) | PDT | | + + + + + | Height | 174.4 cm (5' 8.66") | 08/23/2012 11:47 AM | | | | | PDT | | + + + + + | Body Mass Index | 22.88 | 08/23/2012 11:47 AM | | | | | PDT | | + + + + + documented in this encounter Patient Instructions Patient Instructions Tania Camp MD - 08/23/2012 12:14 PM PDTPlan: Consider now that disease symptoms are under good control, changing to Humira. Read on Vapps or Click & Grow or Inkive. Follow-up: The next recommended follow-up in GI clinic: 8 wk What is the plan if the studies are normal for my child? Please make a clinic appointment with me to discuss the plan if studies are normal, and if recommended diet changes or other therapy do not resolve the symptoms. Education: For information on GI topics, please check out excellent online websites such as: [email or web address] Results of tests: Results of laboratory tests, biopsies or Xrays will be sent to you by [employer]. Please ask at the front office manager for the code and instructions on how to sign up for this. It t akes only 2 minutes to sign up. Note: If you do not have internet access, results will be sent by mail. Questions: If you have non-urgent questions, they can be sent by [employer]. For urgent questions, please call the [facility] GI office at [phone]. documented in this encounter Progress Notes Tania Camp MD - 08/23/2012 12:05 PM PDT PEDIATRIC GASTROENTEROLOGY IBD FOLLOW-UP CONSULTATION Jeremias Adames is an 16 y.o. male, who is referred by Tracey Galeas to Pediatric GI Cli vivi accompanied by mother, for follow-up consultation for chief complaint of Crohn's of smal l and large bowel. Jeremias Adames has the following medical problems: [...] Arthritis associated with inflammatory bowel disease Fatigue Past IBD history: Diagnosed with Crohn's in 2012 year, with focus of disease mainly in duodenum and colon. Pertinent diagnostic findings: SURGICAL PATHOLOGY (no units) Date Value Range Status 01/30/2012 Final Final Pathologic Diagnosis: A: Duodenum, biopsy: - [...] developed and its performance characteristics determined by [employer] It has not been cleared or approved by the U.S. Food and Drug Administration.) Clinical History: The patient is a 16-year-old male with Crohn status post Remicade. Rendering Diagnostician: Iris Prado M.D. Ph.D. Pathologist Electronically Signed 02/03/2012 6:44PM Medications that have failed to control the disease activity in past or for which there was an adverse reaction: 6-MP/ imuran. Current medicines include: Current Outpatient Prescriptions Medication [...] in Medications since we last saw patient? Lialda started Interval history update: Patient reports today that stools are 1/day and normal in consistency. Blood or mucus in the stool? no Urgency? no Abdominal pain? no Nausea? no. Vomiting? no. Energy level is good. Appetite is good. New medical/surgical issues since last visit? no ROS: Aphthous ulcers? yes Any joint or eye pain? 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 no Any known clotting disorder? no Any recent fever ? no Any skin problems or rash? no Has weight been stable? yes GI aspects of ROS noted in the Interval History section above. Cardiovascular: Negative Genitourinary:Negative Neurologic: Negative Social history: Lives with parents. Missing school? Had been before diagnosis. Now doing summer school to catch up. Medication compliance estimate fair - Remiacade and one a day lialda. Nutrition: Taking multivitamin? yes Calcium intake adequate? Will add No Known Allergies Ht 174.4 cm (5' 8.66") (55 %ile), Wt 69.6 kg (153 lbs 7.0 oz) (77 %ile), BP 132/55, Pulse 8 1, BMI 22.88 kg/(m^2). 77%ile (Z=0.73) based on CDC 2-20 Years BMI-for-age data. Examination: Appearance: alert, active and in no apparent distress. Skin: turgor normal, capillary refill brisk, no rashes, petechiae HEENT: normocephalic,PERRLA , sclera nonicteric,injected right eye conjuctive - baseline; n ose without discharge, mouth no aphthous lesions, mucous membranes moist, pharynx unremarkab le Neck: supple, without thyromegaly Chest: clear to [...] Lab results from last GI visit: Clinical Ob Nurse on 06/28/2012 Component Date Value Range ALBUMIN, [...] Arthritis associated with inflammatory bowel disease Fatigue 1. Inflammatory bowel disease The inflammatory bowel is under good control. The disease activity is minimal. The following medications were changed: None, but will consider changing to Humira this or next so that he has more mobility and to interfere with school less. Family will read about this and get back with me. Past studies reviewed with family/patient, and new studies ordered: Vitamin B 12 to regula r labs. DEXA NEED a NEW TB test for 2012. 2. Nutrition support: A. Our Crohn's patients would benefit from a DEXAordered every 2 years; this can be done during summer to avoid missing school. B. We recommend a multivitamin for patient, and calcium supplement: reminded 3. Health care maintenance: A. Vaccinations Family reminded of importance of getting a flu shot every fall. No live virus vaccinations such as the nasal flu mist, Varicella or MMR for our patients on immunosuppressives (such a s 6- mercaptopurine/imuran or TNF alpha blocking agents such as Infliximab/Humira). B. Dental - I discussed the importance of dental hygiene with patient and family 4. Psychosocial or economic challenges affecting patient's medical care delivery: none Plan- the following was included in the patient's after visit summary: Consider now that disease symptoms are under good control, changing to Humira. Read on [employer] or Click & Grow or Inkive. Follow-up: The next recommended follow-up in GI clinic: 8 wk TANIA CAMP MD [facility] GASTROENTEROLOGY [address] [facility] Mailcode: [place] [address] documented in this enco unter Plan of Treatment Not on filedocumented as of this encounter Procedures + +--------+ + + + | Procedure Name | Priori | Date/Time | Associated Diagnosis | Comments | | | ty | | | | + +--------+ + + + | ORDERS OTHER | | 08/23/2012 | | Results for this | | | | 12:00 AM | | procedure are in the | | | | PDT | | results section. 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
--- OUTSIDE RECORDS SUMMARY | ~2019-02-23 | XMS | Encounter Summary ---
Demographics + + + | Address | [address] | | | [place] [address] | + + + | Home Phone [...] + | Debora Resendiz | ECON | [address] | | | | | [place] | | | | | [address] | | + + + + + [...] Team Providers + +------+ + | Care Farm Specialist Name | Role | Phone | + +------+ + | Tracey Galeas MD | PCP | Unavailable | + +------+ + Encounter Details +--------+ + + + + | Date | Type | Department | Care Team | Description | +--------+ + + + + | 01/11/ | Documentati | Vascular Access at | [place], | | | 2011 | on | [facility] [address] | [address] | | | | | [address] | [address] [facility] | | | | | [facility] | [place], [place] | | | | | [place], [place] | [address] | | | | | [address] | | | | | | [phone] | | | +--------+ + + + [...]
--- OUTSIDE RECORDS SUMMARY | ~2019-02-23 | XMS | Encounter Summary ---
Demographics + + + | Address | [address] | | | [place] [address] | + + + | Home Phone [...] + | Debora Resendiz | ECON | [address] | | | | | [place] | | | | | [address] | | + + + + + [...] Team Providers + +------+ + | Care School Photograph Editor Name | Role | Phone | [...] of | [address] | [address] | | | | | small | Manav Yepez | Dr | | | | | intestine | [place], [place] | Mailcode: | | | | | with large | [address] | DCH10C | | | | | intestine | | [address] | | | | | ([facility]) | | [place], [place] | | | | | Procedures | | [address] | | | | | [place] | | Phone: | | | | | [address] | | [phone] | | | | | INJECTION, 1 | | Fax: | | | | | MG | | [phone] | +--------+--------+ + + + + Encounter Details +--------+---------+ + + + | Date | Type | Department | Care Team | Description | +--------+---------+ + + + | 03/08/ | Office | Hematology | Wilmer, | High risk | | 2012 | Visit | Oncology at [facility] [address] | [address] | medications (not | | | | [facility] [address] | [address] [place], | anticoagulants) | | | | Mailcode: DCH10 | [place] [address] | long-term use | | | | Griselda | [phone] | (Primary Dx) | | | | [place], [place] | | | | | | [address] | | | | | | [phone] | | | +--------+---------+ + + + [...] steroids that required police intervention in the [facility]. Mom is adamant that she [...] Lab results from last GI visit: Clinical Senior Director Of Strategy on 03/08/2012 Component Date Value Range ALBUMIN, [...] www:GIKids.org and www.CCFA.org 4. Health care maintenance Bolting Machine Operator exam every 2 years. Flu shot reminder: done Note: Immunosuppressed patients on Remicade, Humira, Cimzia, chronic steroids, methotrexate , imuran or 6-MP should not have live virus vaccinations , including the nasal flu mist, MMR or Varicella vaccination. 5. Next recommended follow-up in GI clinic: For Remicade in 8 weeks. [facility] HEMATOLOGY ONCOLOGY [address] [place] [address] Mailcode: Dch10c [place] [address] documented in t his encounter Plan of Treatment Not on filedocumented as of this encounter Visit Diagnoses + + | Diagnosis | + + | High risk medications (not anticoagulants) long-term use - Primary Encounter for | | long-term (current) use of other medications | + + documented in this encounter
--- OUTSIDE RECORDS SUMMARY | ~2019-02-23 | XMS | Encounter Summary ---
Demographics + + + | Address | [address] | | | [place] [address] | + + + | Home Phone [...] + | Debora Resendiz | ECON | [address] | | | | | [place] | | | | | [address] | | + + + + + [...] Team Providers + +------+ + | Care Enamel Shader Name | Role | Phone | + +------+ + | Tracey Galeas MD | PCP | Unavailable | + +------+ + Encounter Details +--------+ + + + + | Date | Type | Department | Care Team | Description | +--------+ + + + + | 10/13/ | Telephone | Pediatric | Tania Foster MD | | | 2012 | | Gastroenterology at | [address] | | | | | [place] | Herminia Yepez [facility] | | | | | [facility] | [place] [address] | | | | | [address] | [phone] | | | | | Mailcode: [facility] | | | | | | Gr[place]da | | | | | | [place], [place] | | | | | | [address] | | | | | | [phone] | | | +--------+ + + + [...]
--- OUTSIDE RECORDS SUMMARY | ~2019-02-23 | XMS | Encounter Summary ---
Demographics + + + | Address | [address] | | | [place] [address] | + + + | Home Phone [...] + | Debora Resendiz | ECON | [address] | | | | | [place] | | | | | [address] | | + + + + + [...] Team Providers + +------+ + | Care Abalone Fisherman Name | Role | Phone | + +------+ + | Tracey Galeas MD | PCP | Unavailable | + +------+ + Reason for Visit +--------+ + | Reason | Comments | +--------+ + | Other | Procedure Clarification | +--------+ + Encounter Details +--------+ + + + + | Date | Type | Department | Care Team | Description | +--------+ + + + + | 02/19/ | Telephone | Pediatric | Tania Foster MD | Other (Procedure | | 2010 | | Gastroenterology at | [address] [facility] | Clarification) | | | | [place] | Herminia Yepez [place], | | | | | [facility] | [place] [address] | | | | | [address] | [phone] | | | | | Mailcode: [facility] | | | | | | Griselda | | | | | | [place], [place] | | | | | | [address] | | | | | | [phone] | | | +--------+ + + + [...]
--- OUTSIDE RECORDS SUMMARY | ~2019-02-23 | XMS | Encounter Summary ---
Demographics + + + | Address | [address] | | | [place] [address] | + + + | Home Phone [...] + | Debora Resendiz | ECON | [address] | | | | | [place] | | | | | [address] | | + + + + + [...] Team Providers + +------+ + | Care Cpo Name | Role | Phone | + [...] of | [address] | [address] | | | | | small | Manav Yepez | Dr | | | | | intestine | [place], [place] | Mailcode: | | | | | with large | [address] | DCH10C | | | | | intestine | | [place] | | | | | ([facility]) | | [place], [place] | | | | | Procedures | | [address] | | | | | [place] | | Phone: | | | | | INFLIXIMAB | | [phone] | | | | | INJECTION, | | Fax: | | | | | 10 MG | | [phone] | +--------+--------+ + + + + Encounter Details +--------+---------+ + + + | Date | Type | Department | Care Team | Description | +--------+---------+ + + + | 06/28/ | Office | Hematology | Wilmer, | High risk | | 2012 | Visit | Oncology at [facility] [address] | [address] | medications (not | | | | [facility] [address] | [address], | anticoagulants) | | | | Mailcode: [facility] | [place] [address] | long-term use | | | | Gr[place]da | [phone] | (Primary Dx); | | | | [place], [place] | | Arthritis associated | | | | [address] | | with inflammatory | | | | [phone] | | bowel disease; | | | [...] coincide with your next Remicade infusion in [address] [place] [address]. documented in this encounter Progress Notes Sherron [...] every afternoon. He sleeps 9 hours at [facility] as well. His sleep is restless. Appetite [...] results from last GI visit: Clinical General Road Supervisor on 05/03/2012 Component Date Value Range [...] 0.0-0.2 He had Remicade antibodies drawn at [place], no result yet. Assessment & Plan : [...] your next Remicade infusion in . [facility]COLOGY [facility] [facility] Mailcode: Dch10c [place] [address] documented in t his encounter Plan of [...]
--- OUTSIDE RECORDS SUMMARY | ~2019-02-23 | XMS | Encounter Summary ---
Demographics + + + | Address | [address] | | | [place] [address] | + + + | Home Phone [...] + | Debora Resendiz | ECON | [address] | | | | | [place] | | | | | [address] | | + + + + + [...] Team Providers + +------+ + | Care Field Sales Associate Name | Role | Phone | [...] | | | [place] | Herminia Yepez [facility] | | | | | [facility] | [place] [address] | | | | | [address] [facility] | [phone] | | | | | Mailcode: [address] | | | | | | [place] | | | | | | [place], [place] | | | | | | [address] | | | | | | [phone] | | | +--------+ + + + [...] - | | | | | | [place] | | + +-------+ + + + + + | Specimen | + + | Blood - Blood | + + + + + + + | Performing | Address | City/State/Zipcode | Phone Number | | Organization | | | | + + + + + | [facility] | [address] | [place] [address] | | | [place] | | | [...] + | [facility] | [address] | [place] [address] | | | [place] | | | [...] + | [facility] | [address] | [place] [address] | | | [place] | | | | + + + + + documented in this encounter Visit Diagnoses Not on filedocumented in this encounter"
--- OUTSIDE RECORDS SUMMARY | ~2019-02-23 | XMS | Encounter Summary ---
Demographics + + + | Address | [address] | | | [place] [address] | + + + | Home Phone [...] + | Debora Resendiz | ECON | [address] | | | | | [place] | | | | | [address] | | + + + + + [...] Team Providers + +------+ + | Care Fire Pot Operator Name | Role | Phone | + +------+ + | Tracey Galeas MD | PCP | Unavailable | + +------+ + Reason for Visit +--------+ + | Reason | Comments | +--------+ + | Other | blood in stool, stomach pain | +--------+ + Encounter Details +--------+ + + + + | Date | Type | Department | Care Team | Description | +--------+ + + + + | 12/24/ | Telephone | Pediatric | Tania Foster MD | Other (blood in | | 2011 | | Gastroenterology at | [address] [facility] | stool, stomach pain) | | | | [place] | Cristian Yepez [place], | | | | | [facility] | [place] [address] | | | | | [address] | [phone] | | | | | Mailcode: CDRCP | | | | | | [place] | | | | | | [place], [place] | | | | | | [address] | | | | | | [phone] | | | +--------+ + + + [...] as of this encounter Results SEDIMENTATION RATE (12/26/2011 9:39 AM PDT) + [...] [facility] | [address] | [place] [address] | | | SERVICES, CORE | PARK [...] | + + + + + | [facility] | [address] | [place] [address] | | | SERVICES, CORE | PARK [...] | + + + + + | [facility] | [address] | [place] [address] | | | [place] | | | [...] [facility] | [address] | [place] [address] | | | SERVICES, VENU | [address] | | | + + + + + documented in this encounter Visit Diagnoses + + | Diagnosis | + + | Hematochezia - Primary Blood in stool | + + | Crohn's disease, 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
--- OUTSIDE RECORDS SUMMARY | ~2019-02-23 | XMS | Encounter Summary ---
Demographics + + + | Address | [address] | | | [place] [address] | + + + | Home Phone [...] + | Debora Resendiz | ECON | [address] | | | | | [place] | | | | | [address] | | + + + + + [...] Team Providers + +------+ + | Care Collateral Analyst Name | Role | Phone | + +------+ + | Tracey Galeas MD | PCP | Unavailable | + +------+ + Reason for Visit +--------+ + | Reason | Comments | +--------+ + | Other | moodiness on Prednisone | +--------+ + Encounter Details +--------+ + + + + | Date | Type | Department | Care Team | Description | +--------+ + + + + | 05/15/ | Telephone | Pediatric | Tania Foster MD | Other (moodiness on | | 2011 | | Gastroenterology at | [address] [facility] | Prednisone) | | | | [place] | Herminia Yepez [place], | | | | | [facility] | [place] [address] | | | | | [address] | [phone] | | | | | Mailcode: [facility] | | | | | | [place] | | | | | | [place], [place] | | | | | | [address] | | | | | | [phone] | | | +--------+ + + + [...]
--- OUTSIDE RECORDS SUMMARY | ~2019-02-23 | XMS | Encounter Summary ---
Demographics + + + | Address | [address] | | | [place] [address] | + + + | Home Phone | | + + + | Preferred Language | Unknown | + + + | Marital Status | Single | + + + | Evangelical Affiliation | NON | + + + [...] + | Debora Resendiz | ECON | [address] | | | | | [place] | | | | | [address] | | + + + + + [...] Providers + +------+ + | Care Supervisor Lead Refinery Name | Role | Phone | + +------+ + | Tracey Galeas MD | PCP | Unavailable | + +------+ + Reason for Visit + + + | Reason | Comments | + + + | School difficulties | Note confirming Crohn's | + + + Encounter Details +--------+ + + + + | Date | Type | Department | Care Team | Description | +--------+ + + + + | 03/31/ | Telephone | Pediatric | Tania Foster MD | School difficulties | | 2014 | | Gastroenterology at | [address] [facility] | (Note confirming | | | | [place] | Herminia eYpez [place], | Crohn's) | | | | [facility] | [place] [address] | | | | | [address] | [phone] | | | | | Mailcode: CDRCP | | | | | | [place]da | | | | | | [place], [place] | | | | | | [address] | | | | | | [phone] | | | +--------+ + + + [...]
--- OUTSIDE RECORDS SUMMARY | ~2019-02-23 | XMS | Encounter Summary ---
Demographics + + + | Address | [address] | | | [place] [address] | + + + | Home Phone [...] + | Debora Resendiz | ECON | [address] | | | | | [place] | | | | | [address] | | + + + + + [...] Team Providers + +------+ + | Care Corporate Strategy Intern Name | Role | Phone | + +------+ + | Tracey Galeas MD | PCP | Unavailable | + +------+ + Encounter Details +--------+ + + + + | Date | Type | Department | Care Team | Description | +--------+ + + + + | 06/25/ | Documentati | Pediatric | Tania Foster MD | | | 2011 | on | Gastroenterology at | [address] | | | | | [place] | Herminia Yepez [place], | | | | | [facility] | [place] [address] | | | | | [address] | [phone] | | | | | Mailcode: CDRCP | | | | | | Gr[place]da | | | | | | [place], [place] | | | | | | [address] | | | | | | [phone] | | | +--------+ + + + [...]
--- OUTSIDE RECORDS SUMMARY | ~2019-02-23 | XMS | Encounter Summary ---
Demographics + + + | Address | [address] | | | [place] [address] | + + + | Home Phone [...] + | Debora Resendiz | ECON | [address] | | | | | [place] | | | | | [address] | | + + + + + [...] Team Providers + +------+ + | Care Glass Or Mirror Inspector Name | Role | Phone | [...] | | | | | intestine | [place], [place] | [address] | | | | | ([facility]) | [address] | [place] | | | | | Procedures | Phone: | Research | | | | | MR | [phone] | Center | | | | | ENTEROGRAPHY | Fax: | [place], [place] | | | | | ABDOMEN AND | [phone] | [address] | | | | | PELVIS WWO | | Phone: | | | | | CONTRAST | | [phone] | | | | | | | Fax: | | | | | | | [phone] | +--------+--------+ + + + + Reason [...] | | | Griselda | Herminia Yepez [place], | | | | | [facility] | [place] [address] | | | | | [address] | [phone] | | | | | Mailcode: CDR | | | | | | [place] | | | | | | [address], [place] | | | | | | [address] | | | | | | [phone] | | | +--------+ + + + [...]
--- OUTSIDE RECORDS SUMMARY | ~2019-02-23 | XMS | Encounter Summary ---
Demographics + + + | Address | [address] | | | [place] [address] | + + + | Home Phone [...] + | Debora Resendiz | ECON | [address] | | | | | [place] | | | | | [address] | | + + + + + [...] Team Providers + +------+ + | Care Refresh Technician Name | Role | Phone | [...] Closed | | Pediatric | Diagnoses | [place], | Ped Gastro | | | | Gastroenterol | Crohn | Tracey Chiu MD | [address] | | | | ogy | disease | [place] | [place] | | | | | ([facility]) | [facility] | Mailcode: | | | | | | [place] | CDR[facility] | | | | | | [address] | | | | | | [address] | [place], [place] | | | | | [address] | [address] | | | | | | [place], | Phone: | | | | | | [place] [address] | [phone] | | | | | | | Fax: | | | | | | | [phone] | +--------+--------+ + + + + Encounter Details +--------+---------+ + + + | Date | Type | Department | Care Team | Description | +--------+---------+ + + + | 12/25/ | Office | Pediatric | Tania Foster MD | Crohn's disease, | | 2011 | Visit | Gastroenterology at | [address] [facility] | small and large | | | | [place] | [address] [place], | intestine with | | | | [facility] | [place] [address] | granuloma in the | | | | [address] | [phone] | colon, severe | | | | Mailcode: CDR | | duodenitis (Primary | | | | [place] | | Dx); Vitamin B12 | | | | [place], [place] | | deficiency; | | | | [address] | | Hematochezia; | | | | [phone] | | Excessive thirst | +--------+---------+ + + + Social History [...] + + + | Blood Pressure | 145/76 | 12/26/2011 8:12 AM | | | | | PDT | | + + + + + | Pulse | 80 | 12/26/2011 8:12 AM | | | | | PDT | | + + + + + | Temperature | 36.4 C (97.5 F) | 12/26/2011 8:12 AM | | | | | PDT | | + + + + + | Respiratory Rate | 14 | 12/26/2011 8:12 AM | | | | | PDT | | + + + + + | Oxygen Saturation | - | - | | + + + + + | Inhaled Oxygen | - | - | | | Concentration | | | | + + + + + | Weight | 65 kg (143 lb 4.8 | 12/26/2011 8:12 AM | | | | oz) | PDT | | + + + + + | Height | 171 cm (5' 7.32") | 12/26/2011 8:12 AM | | | | | PDT | | + + + + + | Body Mass Index | 22.23 | 12/26/2011 8:12 AM | | | | | PDT | | + + + + + documented in this encounter Patient Instructions Patient Instructions Tania Foster MD - 12/26/2011 8:47 AM PDTFormatting of this note subha ht be different from the original. COLONOSCOPY PREP INSTRUCTIONS PROCEDURE DATE: APPROX PROCEDURE TIME: TIME TO ARRIVE IN PRE-OP AREA: THE PROCEDURE: This procedure involves looking at the lower bowel, or colon (colonoscopy) using an instrum ent made of thin flexible tubing with a camera on the end. This lets the doctor remove tiss ue samples for microscopic analysis (biopsy) or to remove small growths called polyps (polyp ectomy). For more information about endoscopy (EGD) and colonoscopy, see our national website, [email or web address] for information in many languages. BOWEL PREPARATION: [...] bottle of MiraLAX Powder (over the counter) Chocolate Ex-lax squares (over the counter) 10 ounce bottle of Green or Clear (*No Red) Magnesium Citrate (over the counter) Dulcolax suppositories (over the counter) Clear Liquids (*No Red colors) Gatorade, Pediasure-Clear or Ensure Clear PREPARATION: 10 DAYS PRIOR to your procedure Do not take aspirin, Ibuprofen (Advil), Naprosyn, or Aleve unless instructed to do so by your pediatric orthodontist or doctor managing a shunt in your body. If you take heparin (Lovenox) or aspirin for a heart/ vascular condition or shunt, d iscuss with your doctor and the GI provider. 2 DAYS before procedure Eat low fiber diet for breakfast At noon, Begin CLEAR LIQUID DIET NO SOLID FOOD START LAXATIVES Noon: Take 2 Ex-lax square(s), orally. Then take 1 1/2 capful(s) of MiraLAX in 12 oz of clear liquids every hour for 3 doses. 1 DAY before the procedure CLEAR LIQUID DIET- NO SOLID FOOD *NOTHING RED IN COLOR* TAKE MORE LAXATIVES Clear liquids only 8am: Take 2 Ex-lax square(s) orally Then take 1 1/2 capful(s) of MiraLAX in 12 oz of clear liquids every hour for 4 doses orally, completing by NOON. Next, take another 1 Ex-lax square by mouth. If stools are not clear by 5pm: Drink 10 oz of Magnesium Citrate Give (per rectum) a Dulcolax (bisacodyl) suppository to stimulate stooling DAY OF PROCEDURE CLEAR LIQUIDS ARE OK UNTIL 2 hours before the procedure STOP ALL FOOD & DRINK. 2 hours prior to the procedure stop everything by mouth including gum or candy. If your child does not follow these instructions, we will have to cancel the procedure for safety. For questions about morning medications, call the PREP CLINIC at [phone] If your child has a cold, cough, or fever prior to this procedure, please call our office 1 -2 days before the schedule appointment so we can determine if the procedure should be adam eduled. We may then offer the slot to another waiting child and family. CLEAR LIQUID DIET NO RED COLORS PLEASE Pediasure Clear Ensure Clear Sports drinks contain important salt replacement: Gatorade, All-Sport, PowerAde Popsicles (without milk or added fruit pieces; Pedialyte makes a great popsicle with imp ortant salt replacement Broth clear, fat free, canned (Uribe's) chicken, beef or vegetable Bouillon mixed with warm water Clear juice (apple, white grape) Gelatin (Jell-O) THE DAY OF THE PROCEDURE Please arrive on time - 90 minutes before the procedure as noted above. If you are late, we may cancel. If you need to cancel the procedure the day of or the evening before you are scheduled plemarianna killian call [phone] and leave a message including your child s name and date of , an d what procedure is scheduled plus the reason for cancelling. INSURANCE: Please bring your insurance card with you. As a courtesy, our office will contact your ins [employer] company to get authorization for the procedure; however, this is not a guarantee of p ayment. It is your responsibility to assure your insurance covers the procedure. CHECK-IN: At admitting desk on the lobby level (by Igor) of [facility] After registration, go to the procedure area, 8th floor of [facility]. (robbie ruiz) A nurse or CONSTRUCTION SAFETY MANAGER will put a gown on your child, obtain their weight and vital signs, and gath er l information. Your child may be given medication to allow them to relax. Your anesthes iologist will speak with you about the sedation plan. The GI doctor performing the procedur e will obtain consent if needed. Just prior to the procedure, your child will be taken to [facility] procedure room. TIME: The procedure time is less than 30 minutes for an upper endoscopy and about an hour for col onoscopy. Your child will return to the recovery area initially. The time from arrival to departure from [facility] is about 4 - 5 hours. Biopsy results take up to10 days; we will notify you when they are available. Please sign up for FRUCThart for faster results. AFTER THE PROCEDURE: Some children may vomit once or twice following the procedure. If the vomiting persists fo r more that 4 to 6 hours, contact our office. Please contact our Pediatric Gastroenterology Office at [phone] #3 or Toll Free at [phone] if you need any further information. For your child's safety, they will need to be accompanied by and driven home by an adult. LOW FIBER OPTIONS FOODS TO CHOOSE FOODS TO AVOID Breads & Starches White breads White rice/noodles Plain crackers Potato Roll Skinless/cooked potato Pretzels Puffed rice Meat Eggs Fruit Applesauce Soft honeydew/cantaloupe Canned fruit (without seeds/skin) Ripe banana Breads & Starches Whole wheat breads Whole wheat pasta , Brown or wild rice Breads/cereals with nuts, , seeds, or fruit Buckwheat Granola Cornbread Pumpernickel bread Meat Tough/fibrous meats Fruit Other raw fruit Prunes/prune juice Raisins and dried fruit Berries documented in this encounter Progress Notes Tania Foster MD - 12/26/2011 8:34 AM PDT PEDIATRIC GASTROENTEROLOGY CLINIC FOLLOW-UP CONSULTATION Jeremias Adames is an 16 y.o. male, who is referred by Tracey Galeas to Pediatric GI Cli [facility] for follow-up consultation for the following chief complaint, hmaatochezia. Patient has the following medical problems: Patient Active Problem List Diagnoses Weight loss Diarrhea Heartburn Anemia Abdominal pain, acute, right upper quadrant Nausea Crohn's disease, small and large intestine with 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, severe duodenit is Gastric ulcer Anorexia Helicobacter positive gastritis High risk medications (not anticoagulants) long-term use Hematochezia Vitamin B12 deficiency Interval history: Jeremias Adames was accompanied in the visit by mother. Since we last saw the patient, they state that he has new onset of hematochezia. Recall he was diagnosed with Crohns early in 2011, with main symptom of fatigue. That is still an issue. He had inflammation in the duodenum, stomach, and colon. He was so infla med that we were unable to pass the scope around to the ileum. Currently he is stooling 1 time/day, non-urgent with some blood. Adominal pain is crampy and left sided ; improves aft er bowel movement.. Mother has the paperwork for Remicade level but has not completed He is currently getting q 8 wk Remicade. ROS: Any persistent fevers? no Has weight/growth been stable? yes Any respiratory symptoms such as persistent cough? no Eyes: negative Ears, Nose and Throat: Negative Musculoskeletal: Negative Cardiovascular: Negative Genitourinary:Negative Neurologic: Negative Skin: Negative Psychological: Negative Heme/Lymphatic: Negative Allergic: Negative Rest of ROS negative Family history changes? no Social history: Lives with parents and sib. Any change in patient's medicines since we last saw them? Not yet Current Outpatient Prescriptions Medication Sig CALCIUM CARBONATE (CALCIUM 500 ORAL) Take by mouth. FOLIC ACID ORAL Take by mouth. inFLIXimab (REMICADE) 100 mg Intravenous Recon Soln Indications: CROHN'S DISEASE mesalamine EC (ASACOL) 400 mg Oral Tablet, Delayed Release (E.C.) Take 3 Tabs by mouth two times daily. Indications: Crohn's Disease metroNIDAZOLE (FLAGYL) 500 mg Oral tablet Take 1 Tab by mouth every twelve hours. Take for 3 months and stop on Mar 26, 2012. multivitamin Oral capsule Take 1 Cap by mouth once daily. omeprazole (PRILOSEC) 20 mg Oral Capsule, Delayed Release(E.C.) Take 2 Caps by mouth on ce daily in the morning. predniSONE 10 mg Oral tablet Take 4 Tabs by mouth once daily. Take for 10 days in the , and then drop by 5 mg every Thursday. VIT B12/FA/PYRIDOXAL/B6/BETAIN (COBALAMINE COMBINATIONS ORAL) Take by mouth. No Known Allergies Ht 171 cm (5' 7.32") (49 %ile), Wt 65 kg (143 lbs 4.8 oz) (74 %ile), Weight for age(%) 73. 69%, BMI for age(%) 75.52%, Length for age(%) 48.72%, BP 145/76, Pulse 80, Temperature 36. 4 C (97.5 F), RR 14, BMI 22.23 kg/(m^2). 75.53%ile based on CDC 2-20 Years BMI-for-age d [place]. Examination: Appearance: alert, active and in no apparent distress. Skin: turgor normal, capillary refill brisk, no rashes, petechiae HEENT: normocephalic,PERRLA , sclera anicteric,nose without discharge, mouth no aphthous le sions, mucous membranes moist, pharynx unremarkable Neck: supple, without thyromegaly Chest: clear to auscultation bilaterally. CV: regular sinus rhythm, normal S1 and S2, no murmurs. Abdomen: normal bowel sounds, soft, no distention, slight leftsided tenderness to palpati on, no rebound or guarding, no palpable masses, no hepatosplenomegaly Musculoskeletal: grossly intact without clubbing or edema Neuro: normal gait and speech for age Nodes: no signficant cervical or supraclavicular adenopathy Psychiatric- affect normal Patient reports a pain level of 0 today. ___ No action required ___ See assessment and plan Assessment and plan: This is a patient with the following chronic conditions: Patient Active Problem List Diagnoses Weight loss Diarrhea Heartburn Anemia Abdominal pain, acute, right upper quadrant Nausea Crohn's disease, small and large intestine with 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, severe duodenit is Gastric ulcer Anorexia Helicobacter positive gastritis High risk medications (not anticoagulants) long-term use Hematochezia Vitamin B12 deficiency 1. Hematochezia - concerned that he may need dose adjustment for the Remicade. We may als o need to consider adding methotrexate in low dose 2. Crohns of small and large bowel. We did get to the ileum at his first colonoscopy due to the profound colitis he had. It is time to repeat this and see what progress we have ma de with REmicade, and where his active disease is. 3. Anemia - will check vitamin B12 level 4. Health maintenance - needs a DEXA this summer 5. Thirst is excessive recently- will check a Hbg a1c The following medications were changed: We will start prednisone at 40 mg/day with taper, and low dose flagyl once the stool sample is turned in. No changes were made in the remaining listed GI medications. Education: For information on many GI topics, see [email or web address]. Follow-up consultation, if you agree, was suggested for: Mid January We appreciate the opportunity to participate in the medical care of this patient and family . If you have any questions, please do not hesitate to call. TANIA FOSTER MD [facility] GASTRO[facility] [address] [facility] [address] Mailcode: [place] [address] Clinical Auger Supervisor on 11/21/2011 Component Date Value Range WHITE CELL COUNT (K/cu mm) 11/21/2011 3.7* 4.9-15.5 RED CELL COUNT (M/cu mm) 11/21/2011 5.07 4.50-5.30 HEMOGLOBIN (g/dL) 11/21/2011 12.1* 13.0-16.0 HEMATOCRIT (%) 11/21/2011 37.0 37.0-49.0 MCV (fL) 11/21/2011 72.9* 80.0-96.0 MCHC (g/dL) 11/21/2011 32.6* 33.4-35.5 RDW (%) 11/21/2011 16.2* 11.5-15.0 PLATELET COUNT (K/cu mm) 11/21/2011 238 150-400 RBC MORPHOLOGY 11/21/2011 - Value: Anisocytosis ++ Hypochromasia + Microcytosis ++ ALBUMIN, PLASMA (LAB) (g/dL) 11/21/2011 4.1 3.5-4.7 [...] 0.1 - BASO # 11/21/2011 0.0 - documented in this enco unter Plan of Treatment + +------+--------+ + + | Name | Type | Priori | Associated Diagnoses | Order Schedule | | | | ty | | | + +------+--------+ + + | VITAMIN B-12, SERUM | Lab | Routin | Crohn's disease, | Expected: 12/26/2011 | | | | e | small and large | (Approximate), | | | | | intestine with | Expires: 01/24/2013 | | | | | granuloma in the | | | | | | colon, severe | | | | | | duodenitis Vitamin | | | | | | B12 deficiency | | + +------+--------+ + + documented as of this encounter Results HEMOGLOBIN A1C, BLOOD (12/26/2011 9:39 AM PDT) [...] | | If you are | | [place] | | | | screening for diabetes: [...] | + + + + + | [facility] - [facility] - | [address] | [place] [address] | | | [place] | | | [...] [facility] | | | , SERUM | [facility],[address] | | [address] | | | | [address], [facility] | | PTH - [facility] | | | | [address] | | | | | | [phone]. | | | | | | Lyla white, | | | | | | , Lab. Director | | | | + + + + + + + + | Specimen | + + | Blood - Blood | + + + + + + + | Performing | Address | City/State/Zipcode | Phone Number | | Organization | | | | + + + + + | [facility] | [address] | [place], [place] | | | UN[facility] | | [address] | | + + + + + [...] | + + + + + | [facility] | [address] | [place] [address] | | | [address], [address] | [address]STIAN [...] + + | [facility] | [address] | [place] [address] | | | SERVICES, CORE | [address] | | | + + + + + documented in this encounter Visit Diagnoses + + | Diagnosis | + + | Crohn's disease, small and large intestine with 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, severe | | duodenitis - Primary Regional enteritis of small intestine with large intestine | + + | Vitamin B12 deficiency Other B-complex deficiencies | + + | Hematochezia Blood in stool | + + | Excessive thirst Polydipsia | + + documented in this encounter
--- OUTSIDE RECORDS SUMMARY | ~2019-02-23 | XMS | Encounter Summary ---
Demographics + + + | Address | [address] | | | [place] [address] | + + + | Home Phone [...] + | Debora Resendiz | ECON | [address] | | | | | [place] | | | | | [address] | | + + + + + [...] Team Providers + +------+ + | Care Direct Of Real Estate Name | Role | Phone | + [...] | | | Griselda | Herminia Yepez [place], | | | | | [facility] | [place] [address] | | | | | [address] [facility] | [phone] | | | | | Mailcode: SUKUMAR | | | | | | Griselda | | | | | | [place], [place] | | | | | | [address] | | | | | | [phone] | | | +--------+ + + + [...]
--- OUTSIDE RECORDS SUMMARY | ~2019-02-23 | XMS | Encounter Summary ---
Demographics + + + | Address | [address] | | | [place] [address] | + + + | Home Phone [...] + | Debora Resendiz | ECON | [address] | | | | | [place] | | | | | [address] | | + + + + + [...] Team Providers + +------+ + | Care Planting Material Unloader Name | Role | Phone | + [...] | | Griselda | Herminia Yepez [place], | | | | | [facility] | [place] [address] | | | | | [address] [facility] | [phone] | | | | | Mailcode: SU[place]UMAR | | | | | | Griselda | | | | | | [place], [place] | | | | | | [address] | | | | | | [phone] | | | +--------+ + + + [...]
--- OUTSIDE RECORDS SUMMARY | ~2019-02-23 | XMS | Encounter Summary ---
Demographics + + + | Address | [address] | | | [place] [address] | + + + | Home Phone [...] | + + + + + | Deobra Resendiz | ECON | [address] | | | | | [place] | | | | | [address] | | + + + + + [...] Providers + +------+ + | Care Health Information Administrator Name | Role | Phone | + [...] | | | ogy | disease | [place] | [place] | | | | | ([facility]) | [facility] | Mailcode: | | | | | | [place] | [facility] | | | | | | [address] | [address] | | | | | | [address] | [place], [place] | | | | | | [address] | [address] | | | | | | [place], | Phone: | | | | | | [place] [address] | [phone] | | | | | | | Fax: | | | | | | | [phone] | +--------+--------+ + + + + Encounter Details +--------+---------+ + + + | Date | Type | Department | Care Team | Description | +--------+---------+ + + + | 12/25/ | Office | Pediatric | Tania Foster MD | Crohn's disease, | | 2011 | Visit | Gastroenterology at | [address] [facility] | small and large | | | | [place] | [address] [place], | intestine with | | | | [facility] | [place] [address] | granuloma in the | | | | [address] | [phone] | colon, severe | | | | Mailcode: CDR | | duodenitis (Primary | | | | [place] | | Dx); Vitamin B12 | | | | [place], [place] | | deficiency; | | | | [address] | | Hematochezia; | | | | [phone] | | Excessive thirst | +--------+---------+ + [...] unless instructed to do so by your spring assembler or doctor managing a shunt in your [...] morning medications, call the [facility] at [phone] If your child has a cold, cough, [...] before you are scheduled plemarianna killian call [phone] and leave a message including your child s name and date of , an d what procedure is scheduled plus the reason for cancelling. INSURANCE: Please bring your insurance card with you. As a courtesy, our office will contact your ins [employer] company to get authorization for the procedure; however, this is not a guarantee of p ayment. It is your responsibility to assure your insurance covers the procedure. CHECK-IN: At admitting desk on the lobby level (by Igor) of [facility] After registration, go to the procedure area, 8th floor of [facility]. (robbie ruiz) A nurse or RESIDENT ASSOCIATE will put a gown on your child, obtain their weight and vital signs, and gath er l information. Your child may be given medication to allow them to relax. Your anesthes iologist will speak with you about the sedation plan. The GI doctor performing the procedur e will obtain consent if needed. Just prior to the procedure, your child [facility]. TIME: The procedure time is less than 30 minutes for an upper endoscopy and about an hour for col onoscopy. Your child will return to the recovery area initially. The time from arrival to departure from [facility] is about 4 - 5 hours. Biopsy results take up to10 days; we will notify you when they are available. Please sign up for [employer]hart for faster results. AFTER THE PROCEDURE: Some children may vomit once or twice following the procedure. If the vomiting persists fo r more that 4 to 6 hours, contact our office. Please contact our Pediatric Gastroenterology Office at [phone] #3 or Toll Free at [phone] if you need any further information. For [...] not hesitate to call. TANIA FOSTER MD [facility] GASTRO[facility]OLOG[facility] [address] [facility] [place]: [place] [address] Clinical Tennis Camp Instructor on 11/21/2011 Component Date Value Range WHITE [...] | + + + + + | [employer] [facility] AIR[facility] - | [address] | [place] [address] | | | [place] | | | [...] UNIV | | | | Oliver Nicolas, [facility] | | PTH - INTFC | | | | [address] | | | | | | [phone] | | | | | | Lyla [...] [facility] | [address] | [place], [place] | | | UNIV PTH - INTFC | | [address] | | + + + + + [...] [facility] | [address] | [place] [address] | | | PIOTR, VENU | CRISTIAN [...] DALE ZAVALA | [address] | [place] [address] | | | SERVICES, CORE | CRISTIAN [...]
--- OUTSIDE RECORDS SUMMARY | ~2019-02-23 | XMS | Encounter Summary ---
Demographics + + + | Address | [address] | | | [place] [address] | + + + | Home Phone [...] + | Debora Resendiz | ECON | [address] | | | | | [place] | | | | | [address] | | + + + + + [...] Providers + +------+ + | Care Police Chief Deputy Name | Role | Phone | + +------+ + | Srinivas Stephens DO | PCP | | + +------+ + Reason for Visit + + + | Reason | Comments | + + + | Prior Authorization | Humira | | Request | | + + + Encounter Details +--------+ + + + + | Date | Type | Department | Care Team | Description | +--------+ + + + + | 11/23/ | Documentati | Pediatric | Tania Foster MD | Prior Authorization | | 2014 | on | Gastroenterology at | [address] [facility] | Request (Mark) | | | | [place] | Herminia Yepez [place], | | | | | [facility] | [place] [address] | | | | | [address] | [phone] | | | | | Mailcode: CDR | | | | | | [place] | | | | | | [place], [place] | | | | | | [address] | | | | | | [phone] | | | +--------+ + + + [...]
--- OUTSIDE RECORDS SUMMARY | ~2019-02-23 | XMS | Encounter Summary ---
Demographics + + + | Address | [address] | | | [place] [address] | + + + | Home Phone | | + + + | Preferred Language | Unknown | + + + | Marital Status | Single | + + + | Protestant Affiliation | NON | + + + [...] + | Debora Resendiz | ECON | [address] | | | | | [place] | | | | | [address] | | + + + + + [...] Team Providers + +------+ + | Care Table Setter Name | Role | Phone | + +------+ + | Tracey Galeas MD | PCP | Unavailable | + +------+ + Encounter Details +--------+ + + + + | Date | Type | Department | Care Team | Description | +--------+ + + + + | 08/23/ | MyChart | Pediatric | Tania Foster MD | need help | | 2013 | Encounter | Gastroenterology at | [address] | | | | | [place] | Herminia Yepez [place], | | | | | [facility] | [place] [address] | | | | | [address] | [phone] | | | | | Mailcode: CDRCP | | | | | | [place] | | | | | | [place], [place] | | | | | | [address] | | | | | | [phone] | | | +--------+ + + + [...]
--- OUTSIDE RECORDS SUMMARY | ~2019-02-23 | XMS | Encounter Summary ---
Demographics + + + | Address | [address] | | | [place] [address] | + + + | Home Phone [...] + | Debora Resendiz | ECON | [address] | | | | | [place] | | | | | [address] | | + + + + + [...] Team Providers + +------+ + | Care Nutrition Therapist Name | Role | Phone | + +------+ + | Srinivas Stephens DO | PCP | | + +------+ + Reason for Visit + + + | Reason | Comments | + + + | Refill Request | Mark-tete | + + + Encounter Details +--------+--------+ + + + | Date | Type | Department | Care Team | Description | +--------+--------+ + + + | 08/29/ | Refill | Pediatric | Tania Foster MD | Refill Request | | 2015 | | Gastroenterology at | [address] | ([facility]) | | | | [place] | Herminia Yepez [place], | | | | | [facility] | [place] [address] | | | | | [address] | [phone] | | | | | Mailcode: [facility] | | | | | | [place] | | | | | | [place], [place] | | | | | | [address] | | | | | | [phone] | | | +--------+--------+ + + + [...]
--- OUTSIDE RECORDS SUMMARY | ~2019-02-23 | XMS | Encounter Summary ---
Demographics + + + | Address | [address] | | | [place] [address] | + + + | Home Phone [...] + | Debora Resendiz | ECON | [address] | | | | | [place] | | | | | [address] | | + + + + + [...] Team Providers + +------+ + | Care Air Twist Operator Name | Role | Phone | [...] at | [address] | ([facility]) | | | | [place] | Herminia Yepez [place], | | | | | [facility] | [place] [address] | | | | | [address] | [phone] | | | | | Mailcode: [facility] | | | | | | [place] | | | | | | [place], [place] | | | | | | [address] | | | | | | [phone] | | | +--------+--------+ + + + [...]
--- OUTSIDE RECORDS SUMMARY | ~2019-02-23 | XMS | Encounter Summary ---
Demographics + + + | Address | [address] | | | [place] [address] | + + + | Home Phone [...] + | Debora Resendiz | ECON | [address] | | | | | [place] | | | | | [address] | | + + + + + [...] Team Providers + +------+ + | Care Security Specialist Name | Role | Phone | [...] | | | [place] | Herminia Yepez [place], | | | | | [facility] | [place] [address] | | | | | [address] | [phone] | | | | | Mailcode: [facility] | | | | | | [place] | | | | | | [place], [place] | | | | | | [address] | | | | | | [phone] | | | +--------+ + + + [...]
--- OUTSIDE RECORDS SUMMARY | ~2019-02-23 | XMS | Encounter Summary ---
Demographics + + + | Address | [address] | | | [place] [address] | + + + | Home Phone [...] + | Debora Resendiz | ECON | [address] | | | | | [place] | | | | | [address] | | + + + + + [...] Team Providers + +------+ + | Care Vehicle Maintenance Supervisor Name | Role | Phone [...] | 12/11/ | Documentati | [facility] 7th | Marcela Peterson, | Consultation | | 2015 | on | Floor [address] | PhD | | | | | St Mailcode: [facility] | | | | | | [place], [place] | | | | | | [address] | | | | | | [phone] | | | +--------+ + + + [...]
--- OUTSIDE RECORDS SUMMARY | ~2019-02-23 | XMS | Encounter Summary ---
Demographics + + + | Address | [address] | | | [place] [address] | + + + | Home Phone [...] + | Debora Resendiz | ECON | [address] | | | | | [place] | | | | | [address] | | + + + + + [...] Team Providers + +------+ + | Care Application Design Engineer Name | Role | Phone | [...] | | [place] | Herminia Yepez [place], | | | | | [facility] | [place] [address] | | | | | [address] | [phone] | | | | | Mailcode: CDRCP | | | | | | [place] | | | | | | [place], [place] | | | | | | [address] | | | | | | [phone] | | | +--------+ + + + [...]
--- OUTSIDE RECORDS SUMMARY | ~2019-02-23 | XMS | Encounter Summary ---
Demographics + + + | Address | [address] | | | [place] [address] | + + + | Home Phone [...] + | Debora Resendiz | ECON | [address] | | | | | [place] | | | | | [address] | | + + + + + [...] Team Providers + +------+ + | Care Dye Colorist Formulator Name | Role | Phone | + [...] | | | | Staff | at [facility] | | | | | | [facility] | | | | | | [address] [facility] | | | | | | Mailcode: DCH10C | | | | | | [place] | | | | | | [place], [place] | | | | | | [address] | | | | | | [phone] | | | +--------+ + + + [...] - 11/21/2011 12:08 PM Day came to [facility] today for IV Remicade. A PIV was [...] | + + + + + | [facility] | [address] | [place] [address] | | | PATHOLOGY | [address] [...] | + + + + + | [facility] DEPARTMENT | [address] | [place] [address] | | | PATHOLOGY | [address] [...] | + + + + + | [facility] | [address] | [place], [place] [address] | | | PATHOLOGY | [address] [...]
--- OUTSIDE RECORDS SUMMARY | ~2019-02-23 | XMS | Encounter Summary ---
Demographics + + + | Address | [address] | | | [place] [address] | + + + | Home Phone | | + + + | Preferred Language | Unknown | + + + | Marital Status | Single | + + + | Restorationist Affiliation | NON | + + + [...] + | Debora Resendiz | ECON | [address] | | | | | [place] | | | | | [address] | | + + + + + [...] Team Providers + +------+ + | Care Gold Cutter Name | Role | Phone | [...] | | | [place] | Herminia Yepez [place], | | | | | [facility] | [place] [address] | | | | | [address] | [phone] | | | | | Mailcode: [facility] | | | | | | [place] | | | | | | [place], [place] | | | | | | [address] | | | | | | [phone] | | | +--------+ + + + [...]
--- OUTSIDE RECORDS SUMMARY | ~2019-02-23 | XMS | Encounter Summary ---
Demographics + + + | Address | [address] | | | [place] [address] | + + + | Home Phone [...] + | Debora Resendiz | ECON | [address] | | | | | [place] | | | | | [address] | | + + + + + [...] Team Providers + +------+ + | Care Leadite Man Name | Role | Phone | [...] + + | 03/05/ | Hospital | [facility] [address] | Tania Foster MD | | | 2012 | Encounter | [address] | [address] | | | | | [id number] | [address] [facility] | | | | | [place] | [place] [address] | | | | | [facility] | [phone] | | | | | [place] [address] | | | | | | [phone] | | | +--------+ + + + [...] usual medicines unless told otherwise by [facility] doctor. How to Reach Your Doctor: Mon-Fri from 8:00-4:30, call GI Clinic at [phone] After hours, weekends, and holidays, call Hospital Cnc Wood Lathe Operator at [phone]. Ask to have your doctor paged. Return Appointment: Your billet recorder will contact you with the biopsy results, [...] Blaise | | | | | | [facility] | | | | | | [...] + + + | [facility] | [address] | [place] [address] | | | LAB-MICRO | | | [...] + | Test performed by: [facility] | [facility] | | (Former[facility]) [address] [place], [place] | DIAGNOSTICS | | [address] | [facility] | | | [facility] | + + + + + + + + | Performing | Address | City/State/Zipcode | Phone Number | | Organization | | | | + + + + + | [facility] | [address] | [place] [address] | | | [place] | | [...] | + + + + + | [facility] | [address] | [place] [address] | | | PATHOLOGY | [address] | | | + + + + + documented in this encounter Visit Diagnoses Not on filedocumented in this encounter"
--- OUTSIDE RECORDS SUMMARY | ~2019-02-23 | XMS | Encounter Summary ---
Demographics + + + | Address | [address] | | | [place] [address] | + + + | Home Phone [...] + | Debora Resendiz | ECON | [address] | | | | | [place] | | | | | [address] | | + + + + + [...] Team Providers + +------+ + | Care Rag Cutting Machine Operator Name | Role | Phone [...] | | Gastroenterology at | [address] [facility] | (fatigue,abdominal | | | | [place] | [facility], | pain, loose stool) | | | | [facility] | [place] [address] | | | | | [address] | [phone] | | | | | Mailcode: [facility]RCP | | | | | | [place] | | | | | | [place], [place] | | | | | | [address] | | | | | | [phone] | | | +--------+ + + + [...]
--- OUTSIDE RECORDS SUMMARY | ~2019-02-23 | XMS | Encounter Summary ---
Demographics + + + | Address | [address] | | | [place] [address] | + + + | Home Phone [...] + | Debora Resendiz | ECON | [address] | | | | | [place] | | | | | [address] | | + + + + + [...] Team Providers + +------+ + | Care Sock Ironer Name | Role | Phone | + [...] | | | [place] | Herminia Ye[address] [place], | | | | | [facility] | [place] [address] | | | | | [address] [place] [address] | [phone] | | | | | Mailcode: [facility] | | | | | | [place] | | | | | | [place], [place] | | | | | | [address] | | | | | | [phone] | | | +--------+ + + + [...]
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
--- OUTSIDE RECORDS SUMMARY | ~2019-02-23 | XMS | Encounter Summary ---
Demographics + + + | Address | [address] | | | [place] [address] | + + + | Home Phone [...] + | Debora Resendiz | ECON | [address] | | | | | [place] | | | | | [address] | | + + + + + [...] Team Providers + +------+ + | Care Electrical Worker Name | Role | Phone | [...] | | | [place] | Herminia Ye[address] [place], | | | | | [facility] | [place] [address] | | | | | [address] | [phone] | | | | | Mailcode: CD[facility]CP | | | | | | [place] | | | | | | [place], [place] | | | | | | [address] | | | | | | [phone] | | | +--------+ + + + [...]
--- OUTSIDE RECORDS SUMMARY | ~2019-02-23 | XMS | Encounter Summary ---
Demographics + + + | Address | [address] | | | [place] [address] | + + + | Home Phone [...] + + + | Author | [facility] | + + + | Organization | [facility] | + + + | Address | Unknown | + + + | Phone | Unavailable | + + + Support + + + + + | Name | Relationship | Address | Phone | + + + + + | Debora Resendiz | ECON | [address] | | | | | [place] | | | | | [address] | | + + + + + [...] Team Providers + +------+ + | Care Cardiac Cath Lab Manager Name | Role | Phone | [...] + + + + | 06/24/ | Biazzi Nitrator Operator | Pediatric | Tania Foster MD | Crohn's disease, | | 2011 | | Gastroenterology at | [address] [facility] | small and large | | | | [place] | [address] [place], | intestine with | | | | [facility] | [place] [address] | granuloma in the | | | | [address] | [phone] | colon, severe | | | | Mailcode: CDRCP | | duodenitis; | | | | [place] | | Encounter for | | | | [place], [place] | | therapeutic drug | | | | [address] | | monitoring | | | | [phone] | | | +--------+ + + + [...]
--- OUTSIDE RECORDS SUMMARY | ~2019-02-23 | XMS | Encounter Summary ---
Demographics + + + | Address | [address] | | | [place] [address] | + + + | Home Phone [...] + | Debora Resendiz | ECON | [address] | | | | | [place] | | | | | [address] | | + + + + + [...] Team Providers + +------+ + | Care Control Systems Designer Name | Role | Phone [...] Closed | | Pediatric | Diagnoses | [place], | Ped Gi Lab | | | | Gastroenterol | Crohn's | Tania Landrum MD | [address] | | | | ogy | disease of | [address] [facility] | [address] | | | | | both small | Anam | Mailcode: | | | | | and large | Herminia Yepez | [facility] | | | | | intestine | | [place] | | | | | without | [address] | | | | | | complication | Phone: | [phone] | | | | | ([facility]) | [phone] | Phone: | | | | | Procedures | Fax: | [phone] | | | | | REQUEST TO | [phone] | Fax: | | | | | SURGERY | | [phone] | | | | | MACHINE UMBRELLA TIPPER | | | | | | | MA UPPER GI | | | | | | | ENDOSCOPY,BI | | | | | | | OPSY MA | | | | | | | [...] Orders | Gastroenterology at | [address] [facility] | | | | | [place] | [address] [place], | | | | | [facility] | [place] [address] | | | | | [address] | [phone] | | | | | Mailcode: [facility] | | | | | | [place] | | | | | | [place], [place] | | | | | | [address] | | | | | | [phone] | | | +--------+ + + + [...]
--- OUTSIDE RECORDS SUMMARY | ~2019-02-23 | XMS | Encounter Summary ---
Demographics + + + | Address | [address] | | | [place] [address] | + + + | Home Phone [...] + | Debora Resendiz | ECON | [address] | | | | | [place] | | | | | [address] | | + + + + + [...] | | | [place] | [address] [place], | | | | | [facility] | [place] [address] | | | | | [address] [facility] | [phone] | | | | | Mailcode: [place]AR | | | | | | [place] | | | | | | [place], [place] | | | | | | [address] | | | | | | [phone] | | | +--------+ + + + [...]
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
--- OUTSIDE RECORDS SUMMARY | ~2019-02-23 | XMS | Encounter Summary ---
Demographics + + + | Address | [address] | | | [place] [address] | + + + | Home Phone [...] + | Debora Resendiz | ECON | [address] | | | | | [place] | | | | | [address] | | + + + + + [...] Team Providers + +------+ + | Care Computer Support Analyst Name | Role | Phone | [...] Description | +--------+---------+ + + + | 01/04/ | Surgery | 8S INTRA OP | Tania Foster MD | EGD WITH BIOPSY | | 2013 | | [place] | [address] | SPECIEMEN X 5 SENT | | | | Children's | [place], | TO PATHOLOGY | | | | [facility] | [place] [address] | SPECIMEN X 2 SENT TO | | | | Desk Once | [phone] | [facility] | | | | admitted, go to the | | | | | | 8th floor Surgical | | | | | | Desk Located at the | | | | | | [place] [address] | | | | | | [address] [place], | | | | | | [place] [address] | | | +--------+---------+ + + + [...] ities tomorrow. Call the Pediatric GI provider teacher education instructor for urgent matters If you see any of these signs, call the GI office at [phone] (option [phone]) during regular business hours, or the GI provider teacher education instructor after hours for the following: Increased pain [...] take usual medicines unless told otherwise by [facility] doctor. How to Reach Your GI Provider: Mon-Fri from 8:00-4:30, call GI Office at [phone]. After hours, weekends, & holidays, call [facility] Android Platform Developer at [phone]; ask to edwards ve the Pediatric GI provider teacher education instructor paged for urgent patient issues as described above. Results: Biopsy results may take 10 days to come back; we will contact you when we receive the res ults. Assure that our check-in desk has your contact numbers. Please sign up for Cometa in order to receive results faster, if [...] and | 4000 mL | 0 | 01/02/ | | | [id number] gram | take [...] | + +--------+ + + + | NE COLONOSCOPY, | Routin | 01/04/2014 | | Results for this | | FLEX, W/BIOPSY | e | 9:18 AM | | procedure are in the | | | | PST | | results section. | + +--------+ + + + | NE UPPER GI | Routin | 01/04/2014 | [...] + + + + | [facility] - | [address] | [place] [address] | | | [facility] | | | | + [...] performed by: [facility] | | | Diagnostics [place] [address] | | | [place] [address] | | | | | + + + + + + + + | Performing | Address | City/State/Zipcode | Phone Number | | Organization | | | | + + + + + | [facility] | | | | + + + + + | [facility] | see below | | | + + + + + NE UPPER GI ENDOSCOPY,BIOPSY (01/04/2014 9:18 AM [facility])NE COLONOSCOPY, FLEX, W/BIOPSY (01/04 9:18 AM [facility])SURGICAL PATHOLOGY (01/04/2014) + + + + + [...] A | | | | | | special service representative block | | | | [...] Jakob | | | | | | M.Mary/PathologistT:01/04/ | | | | | | 14:phoenix (Analyte | | | | | | specific reagents are | | | | | | used in many laboratory | | | | | | tests necessary | | | | | | [facility] [[email or web address] | | | | | | care. This test was | | | | | | developed and its | | | | | | performancecharacteristi | | | | | | cs determine by [facility] | | | | | | laboratories. [...] Robert | | | | | | Bonifacio [...] + + + | [facility] | [address] | [place] [address] | | | PATHOLOGY | [address] | | | + + + + + documented in this encounter Visit Diagnoses + + | Diagnosis | + + | Regional enteritis of small intestine with large intestine, without complications | + + documented in this encounter
--- OUTSIDE RECORDS SUMMARY | ~2019-02-23 | XMS | Encounter Summary ---
Demographics + + + | Address | [address] | | | [place] [address] | + + + | Home Phone [...] + | Debora Resendiz | ECON | [address] | | | | | [place] | | | | | [address] | | + + + + + [...] Team Providers + +------+ + | Care Warp Tying Machine Knotter Name | Role | Phone | + +------+ + | Tracey Galeas MD | PCP | Unavailable | + +------+ + Encounter Details +--------+------+ + + + | Date | Type | Department | Care Team | Description | +--------+------+ + + + | 03/24/ | Lab | [facility] at [facility] | | Crohn's disease, | | 2014 | | 7th Floor [address] | | small and large | | | | [address] [place], | | intestine, other | | | | [place] [address] | | complication (HCC) | | | | [phone] | | | +--------+------+ + + + [...] [facility] | [address] | [place] [address] | | | SERVICES, CORE | PARK [...] | + + + + + | [facility] | [address] [facility] | [place] [address] | | | SERVICES, CORE | CRISTIAN [...] + + | [facility] | [address] | [place] [address] | | | SERVICES, VENU | CRISTIAN MARTINEZ | | | + + + + + documented in this encounter Visit Diagnoses + + | Diagnosis | + + | Crohn's disease, small and large intestine, other complication | + + documented in this encounter"
--- OUTSIDE RECORDS SUMMARY | ~2019-02-23 | XMS | Encounter Summary ---
Demographics + + + | Address | [address] | | | [place] [address] | + + + | Home Phone [...] + | Debora Resendiz | ECON | [address] | | | | | [place] | | | | | [address] | | + + + + + [...] Team Providers + +------+ + | Care Facetor Name | Role | Phone | + [...] | | | | Staff | at [facility] | | | | | | [facility] | | | | | | [address] [facility] | | | | | | Mailcode: DCH10C | | | | | | [place] | | | | | | [place], [place] | | | | | | [address] | | | | | | [phone] | | | +--------+ + + + [...] - 01/12/2012 9:14 AM Sabrina came to [facility] today for IV Remicade. A [...] | + + + + + | [facility] | [address] [facility] | [place] [address] | | | SERVICES, CORE | PARK [...] [facility] | [address] | [place] [address] | | | VENU [place] | PARK [...] | + + + + + | [facility] | [address] | [place] [address] | | | PIOTR, VENU | CRISTIAN [...] | + + + + + | [email or web address] - | [address] | [place] [address] | | | [place] | | | | + + + [...] [facility] | [address] | [place] [address] | | | SERVICES, CORE | PARK [...]
--- OUTSIDE RECORDS SUMMARY | ~2019-02-23 | XMS | Encounter Summary ---
Demographics + + + | Address | [address] | | | [place] [address] | + + + | Home Phone [...] + | Debora Resendiz | ECON | [address] | | | | | [place] | | | | | [address] | | + + + + + [...] Team Providers + +------+ + | Care Cow Tester Name | Role | Phone | [...] | | [place] | [address] [facility] | | | | | [facility] | [place] [address] | | | | | [address] | [phone] | | | | | Mailcode: [facility] | | | | | | [place] | | | | | | [place], [place] | | | | | | [address] | | | | | | [phone] | | | +--------+ + + + [...]
--- OUTSIDE RECORDS SUMMARY | ~2019-02-23 | XMS | Encounter Summary ---
Demographics + + + | Address | [address] | | | [place] [address] | + + + | Home Phone [...] + | Debora Resendiz | ECON | [address] | | | | | [place] | | | | | [address] | | + + + + + [...] Team Providers + +------+ + | Care Microsoft Dynamics Consultant Name | Role | Phone | + [...] | +--------+ + + + + | 01/17/ | Telephone | Pediatric | Tania Foster MD | Question | | 2013 | | Gastroenterology at | [address] [facility] | | | | | [place] | [address] [place], | | | | | [facility] | [place] [address] | | | | | [address] [facility] | [phone] | | | | | Mailcode: SUKUMAR | | | | | | [place] | | | | | | [place], [place] | | | | | | [address] | | | | | | [phone] | | | +--------+ + + + [...]
--- OUTSIDE RECORDS SUMMARY | ~2019-02-23 | XMS | Encounter Summary ---
Demographics + + + | Address | [address] | | | [place] [address] | + + + | Home Phone [...] + | Debora Resendiz | ECON | [address] | | | | | [place] | | | | | [address] | | + + + + + [...] Team Providers + +------+ + | Care System Development Manager Name | Role | Phone | + +------+ + | Tracey Galeas MD | PCP | Unavailable | + +------+ + Encounter Details +--------+------+ + + + | Date | Type | Department | Care Team | Description | +--------+------+ + + + | 01/18/ | Lab | [facility] at [facility] | | Crohn's disease, | | 2012 | | 7th Floor [address] | | small and large | | | | [address] [place], | | intestine with | | | | [place] [address] | | granuloma in the | | | | [phone] | | colon, severe | | | [...] [facility] | [address] | [place] [address] | | | SERVICES, SPECIAL | PARK [...] [facility] | [address] | [place] [address] | | | SERVICES, CORE | PARK [...] | + + + + + | [facility] | [address] | [place] [address] | | | SERVICES, SPECIAL | CRISTIAN [...] + | [facility] - | [address] | [place] [address] | | | [place] | | | [...] [facility] | [address] | [place] [address] | | | SERVICES, VENU | CRISTIAN [...] + | [facility] - | [address] | [place] [address] | | | [place] | | | [...] | + + + + + | [facility] | [address] | [place] [address] | | | SERVICES, CORE | CRISTIAN [...] [facility] | [address] | [place] [address] | | | SERVICES, CORE | PARK [...]
--- OUTSIDE RECORDS SUMMARY | ~2019-02-23 | XMS | Encounter Summary ---
Demographics + + + | Address | [address] | | | [place] [address] | + + + | Home Phone [...] + | Debora Resendiz | ECON | [address] | | | | | [place] | | | | | [address] | | + + + + + [...] Team Providers + +------+ + | Care Therapy Technician Name | Role | Phone | [...] | | Required | ogy | | [place] | [place] | | | | | | [facility] | Mailcode: | | | | | | [place] | CDRCP | | | | | | [address] | [place] | | | | | | [address] | [place], [place] | | | | | | [address] | [address] | | | | | | [place], | Phone: | | | | | | [place] [address] | [phone] | | | | | | | Fax: | | | | | | | [phone] | +--------+ + + + + + [...] | | | [place] | [address] [place], | Crohn's disease, | | | | [facility] | [place] [address] | small and large | | | | [address] | [phone] | intestine with | | | | Mailcode: CDRCP | | granuloma in the | | | | [place] | | colon, severe | | | | [place], [place] | | duodenitis | | | | [address] | | | | | | [phone] | | | +--------+---------+ + + + [...] Lab results from last GI visit: Clinical Shoe Stitcher on 06/28/2012 Component Date Value Range ALBUMIN, [...] medication in inflamma tory bowel disease is: http://www.[employer].Customer [employer]OM (formerly [employer])/en/understanding-ibd/zozsgmdbcfymp-scm-qjppb -bkt-omzvknxz-zb-ibd-therapies.html Past studies reviewed with family/patient, and new [...] B surf qualitative antibody TANIA CAMP MD [facility] GASTRO[facility]OLOGY [address] Mailcode: [place] [address] documented in this enco unter [...] [facility] | [address] | [place] [address] | | | SERVICES, CORE | PARK [...] | + + + + + | [facility] | [address] | [place] [address] | | | SERVICES, CORE | CRISTIAN [...]
--- OUTSIDE RECORDS SUMMARY | ~2019-02-23 | XMS | Encounter Summary ---
Demographics + + + | Address | [address] | | | [place] [address] | + + + | Home Phone | | + + + | Preferred Language | Unknown | + + + | Marital Status | Single | + + + | Nondenominational Affiliation | NON | + + + [...] + | Debora Resendiz | ECON | [address] | | | | | [place] | | | | | [address] | | + + + + + [...] Team Providers + +------+ + | Care Advertising Layout Worker Name | Role | Phone | [...] and large | | | | at [facility] | | intestine with | | | | [facility] | | granuloma in the | | | | [address] | | colon, severe | | | | Mailcode: DCH10C | | duodenitis; | | | | [place] | | Encounter for | | | | [place], [place] | | therapeutic drug | | | | [address] | | monitoring | | | | [phone] | | | +--------+---------+ + + + [...] home in good condition with his parents. [facility] message sent regarding [place]'s Restroom Access Law (aka Farhana's Law) per [...] | + + + + + | [facility] | [address] | [place] [address] | | | PATHOLOGY | [address] [...] | + + + + + | [facility] | [address] | [place] [address] | | | PATHOLOGY | [address] [...] | + + + + + | [facility] | [address] | [place] [address] | | | PATHOLOGY | [address] [...]
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
--- OUTSIDE RECORDS SUMMARY | ~2019-02-23 | XMS | Encounter Summary ---
Demographics + + + | Address | [address] | | | [place] [address] | + + + | Home Phone [...] + | Debora Resendiz | ECON | [address] | | | | | [place] | | | | | [address] | | + + + + + [...] Team Providers + +------+ + | Care Training Assistant Name | Role | Phone | [...] 2013 | | Gastroenterology at | [address] [facility] | | | | | [place] | Herminia Yepez [place], | | | | | [facility] | [place] [address] | | | | | [address] | [phone] | | | | | Mailcode: CDR | | | | | | [place] | | | | | | [place], [place] | | | | | | [address] | | | | | | [phone] | | | +--------+ + + + [...]
--- OUTSIDE RECORDS SUMMARY | ~2019-02-23 | XMS | Encounter Summary ---
Demographics + + + | Address | [address] | | | [place] [address] | + + + | Home Phone [...] + | Debora Resendiz | ECON | [address] | | | | | [place] | | | | | [address] | | + + + + + [...] Team Providers + +------+ + | Care Collar Folder Operator Name | Role | Phone | [...] | | [place] | Herminia Yepez [facility] | | | | | [facility] | [place] [address] | | | | | [address] | [phone] | | | | | Mailcode: [facility] | | | | | | [place] | | | | | | [place], [place] | | | | | | [address] | | | | | | [phone] | | | +--------+ + + + [...]
--- OUTSIDE RECORDS SUMMARY | ~2019-02-23 | XMS | Encounter Summary ---
Demographics + + + | Address | [address] | | | [place] [address] | + + + | Home Phone [...] + | Debora Resendiz | ECON | [address] | | | | | [place] | | | | | [address] | | + + + + + [...] Team Providers + +------+ + | Care Bridge Engineer Name | Role | Phone | [...] [facility] | | | | | [facility] | [place] [address] | | | | | [address] [facility] | [phone] | | | | | Mailcode: [place] | | | | | | [place] | | | | | | [place], [place] | | | | | | [address] | | | | | | [phone] | | | +--------+ + + + [...] + + + | [facility] | [address] [facility] | [place] [address] | | | LABORATORIES | [address] | | | + + + + + documented in this encounter Visit Diagnoses Not on filedocumented in this encounter"
--- OUTSIDE RECORDS SUMMARY | ~2019-02-23 | XMS | Encounter Summary ---
Demographics + + + | Address | [address] | | | [place] [address] | + + + | Home Phone [...] + | Debora Resendiz | ECON | [address] | | | | | [place] | | | | | [address] | | + + + + + [...] Team Providers + +------+ + | Care Battery Assembler Name | Role | Phone | [...] 2011 | Encounter | Services at [facility] | | | | | | [address] | | | | | | [place] Yepez Mailcode: | | | | | | [address] | | | | | | [facility] | | | | | | [place], [place] | | | | | | [address] | | | | | | [phone] | | | +--------+ + + + [...]
--- OUTSIDE RECORDS SUMMARY | ~2019-02-23 | XMS | Encounter Summary ---
Demographics + + + | Address | [address] | | | [place] [address] | + + + | Home Phone [...] + | Debora Resendiz | ECON | [address] | | | | | [place] | | | | | [address] | | + + + + + [...] Team Providers + +------+ + | Care Mandrel Press Hand Name | Role | Phone | [...] [address] [facility] | blood x1) | | | | [place] | Herminia Yepez [place], | | | | | [facility] | [place] [address] | | | | | [address] | [phone] | | | | | Mailcode: [facility] | | | | | | [place] | | | | | | [place], [place] | | | | | | [address] | | | | | | [phone] | | | +--------+ + + + [...]
--- OUTSIDE RECORDS SUMMARY | ~2019-02-23 | XMS | Encounter Summary ---
Demographics + + + | Address | [address] | | | [place] [address] | + + + | Home Phone [...] + | Debora Resendiz | ECON | [address] | | | | | [place] | | | | | [address] | | + + + + + [...] Team Providers + +------+ + | Care Bonded Strand Operator Name | Role | Phone | [...] | | | [place] | Herminia Yepez [place], | | | | | [facility] | [place] [address] | | | | | [address] [facility] | [phone] | | | | | Mailcode: SU[place]AR | | | | | | [place] | | | | | | [place], [place] | | | | | | [address] | | | | | | [phone] | | | +--------+ + + + [...]
--- OUTSIDE RECORDS SUMMARY | ~2019-02-23 | XMS | Encounter Summary ---
Demographics + + + | Address | [address] | | | [place] [address] | + + + | Home Phone [...] + | Debora Resendiz | ECON | [address] | | | | | [place] | | | | | [address] | | + + + + + [...] Team Providers + +------+ + | Care Auditor Appraiser Name | Role | Phone | + +------+ + | Tracey Galeas MD | PCP | Unavailable | + +------+ + Reason for Visit + + + | Reason | Comments | + + + | Abdominal pain | stomach cramping | + + + Encounter Details +--------+ + + + + | Date | Type | Department | Care Team | Description | +--------+ + + + + | 06/24/ | Telephone | Pediatric | Tania Foster MD | Abdominal pain | | 2011 | | Gastroenterology at | [address] [facility] | (stomach cramping) | | | | [place] | Herminia Yepez [place], | | | | | [facility] | [place] [address] | | | | | [address] | [phone] | | | | | Mailcode: [facility] | | | | | | [place] | | | | | | [place], [place] | | | | | | [address] | | | | | | [phone] | | | +--------+ + + + [...]
--- OUTSIDE RECORDS SUMMARY | ~2019-02-23 | XMS | Encounter Summary ---
Demographics + + + | Address | [address] | | | [place] [address] | + + + | Home Phone [...] + | Debora Resendiz | ECON | [address] | | | | | [place] | | | | | [address] | | + + + + + [...] Team Providers + +------+ + | Care Activities Coordinator Name | Role | Phone | + +------+ + | Tracey Galeas MD | PCP | Unavailable | + +------+ + Encounter Details +--------+ + + + + | Date | Type | Department | Care Team | Description | +--------+ + + + + | 05/26/ | Abstract | Pediatric | Tania Foster MD | | | 2011 | | Gastroenterology at | [address] | | | | | [place] | Herminia Yepez [facility] | | | | | [facility] | [place] [address] | | | | | [address] [facility] | [phone] | | | | | Mailcode: [place] | | | | | | [place] | | | | | | [place], [place] | | | | | | [address] | | | | | | [phone] | | | +--------+ + + + [...] | | | TRANS | | | TOWANDA | | + +--------+ + + + + + | Specimen | + + | Blood - Blood | + + + + + + + | Performing | Address | City/State/Zipcode | Phone Number | | Organization | | | | + + + + + | [facility] - | [address] | [place] [address] | | | [place] | | | [...] + | [facility] - | [address] | [place] [address] | | | [place] | | | [...] + | [facility] - | [address] | [place] [address] | | | [place] | | | [...] + | [facility] - | [address] | [place] [address] | | | [place] | | | | + + + + + documented in this encounter Visit Diagnoses Not on filedocumented in this encounter"
--- OUTSIDE RECORDS SUMMARY | ~2019-02-23 | XMS | Encounter Summary ---
Demographics + + + | Address | [address] | | | [place] [address] | + + + | Home Phone [...] + | Debora Resendiz | ECON | [address] | | | | | [place] | | | | | [address] | | + + + + + [...] Team Providers + +------+ + | Care Command Center Officer Name | Role | Phone | + [...] | | | [place] | Herminia Yepez [place], | | | | | [facility] | [place] [address] | | | | | [address] | [phone] | | | | | Mailcode: CDRCP | | | | | | [place] | | | | | | [place], [place] | | | | | | [address] | | | | | | [phone] | | | +--------+ + + + [...]
--- OUTSIDE RECORDS SUMMARY | ~2019-02-23 | XMS | Encounter Summary ---
Demographics + + + | Address | [address] | | | [place] [address] | + + + | Home Phone [...] + | Debora Resendiz | ECON | [address] | | | | | [place] | | | | | [address] | | + + + + + [...] Providers + +------+ + | Care Heel Boom Operator Name | Role | Phone | [...] | | Required | ogy | | [place] | [address] | | | | | | [facility] | Mailcode: | | | | | | [place] | [facility] | | | | | | [address] | [place] | | | | | | [address] | [place], [place] | | | | | | [address] | [address] | | | | | | [place], | Phone: | | | | | | [place] [address] | [phone] | | | | | | | Fax: | | | | | | | [phone] | +--------+ + + + + + [...] | | | [address] | [address] [place], | intestine with | | | | [facility] | [place] [address] | granuloma in the | | | | [address] | [phone] | colon, severe | | | | Mailcode: CD[facility] | | duodenitis (Primary | | | | [address] | | Dx) | | | | [place], [place] | | | | | | [address] | | | | | | [phone] | | | +--------+---------+ + + + [...] check out excellent online websites such as: GIShoutly.Earth Med.org [employer]/GI FAAN.org for information on food allergies For Liver Diseases: AASLD [place] [employer] offer excellent information. For those with inflammatory bowel disease (Crohn's or ulcerative colitis): CCFA.org http://www.youandibd.com/en/understanding-ibd/xqtztbimfylla-prm-svxgh-and-benef qnp-fr-ndp-therapies.html Results of tests: Results of laboratory tests, biopsies or Xrays will be sent to you by M[employer]. Please ask at the front elevator operator for the code and instructions on how to sign up for this. If you do not have internet access, results will be sent by mail. Questions: If you have non-urgent questions, please send through Mashape. For urgent questions, please call the [facility] GI office at [phone]. documented in this encounter Progress Notes Tania [...] BMI 23.92 kg/(m^2). 82%ile (Z=0.92) based on [facility] 2-20 Years BMI-for-age data. Examination: Appearance: alert, [...] at least 50% of the time in cfrq-jw-lzqp patient edu cation, medical care delivery and in care coordination. TANIA CAMP MD [facility] GASTROENTEROLOGY [address] Mailcode: [place] [address] SURGICAL PATHOLOGY (no units) Date Value Range [...] developed and its performance characteristics determined by [facility] [email or web address]. It has not been cleared or approved [...] | + + + + + | [facility] | [address] | [place] [address] | | | SERVICES, SPECIAL | CRISTIAN [...] + | [facility] - | [address] | [place] [address] | | | [place] | | | [...] [facility] | [address] | [place] [address] | | | SERVICES, VENU | PARK [...]
--- OUTSIDE RECORDS SUMMARY | ~2019-02-23 | XMS | Encounter Summary ---
Demographics + + + | Address | [address] | | | [place] [address] | + + + | Home Phone [...] + | Debora Resendiz | ECON | [address] | | | | | [place] | | | | | [address] | | + + + + + [...] Providers + +------+ + | Care Administrative Assistant Coordinator Name | Role | Phone | [...] | | | [place] | Herminia Yepez [place], | | | | | [facility] | [place] [address] | | | | | [address] | [phone] | | | | | Mailcode: CDRCP | | | | | | [place] | | | | | | [place], [place] | | | | | | [address] | | | | | | [phone] | | | +--------+ + + + [...]
--- OUTSIDE RECORDS SUMMARY | ~2019-02-23 | XMS | Encounter Summary ---
Demographics + + + | Address | [address] | | | [place] [address] | + + + | Home Phone [...] + | Debora Resendiz | ECON | [address] | | | | | [place] | | | | | [address] | | + + + + + [...] Team Providers + +------+ + | Care Inorganic Chemistry Professor Name | Role | Phone | + [...] [facility] | | | | | [facility] | [place] [address] | | | | | [address] [facility] | [phone] | | | | | Mailcode: [place] | | | | | | [place] | | | | | | [place], [place] | | | | | | [address] | | | | | | [phone] | | | +--------+ + + + [...] + + + | [facility] | [address] [facility] | [place] [address] | | | LABORATORIES | [address] | | | + + + + + documented in this encounter Visit Diagnoses Not on filedocumented in this encounter"
--- OUTSIDE RECORDS SUMMARY | ~2019-02-23 | XMS | Encounter Summary ---
Demographics + + + | Address | [address] | | | [place] [address] | + + + | Home Phone [...] + | Debora Resendiz | ECON | [address] | | | | | [place] | | | | | [address] | | + + + + + [...] Providers + +------+ + | Care Senior Product Consultant Name | Role | Phone | [...] | | | | [place] | Herminia [facility], | | | | | [facility] | [place] [address] | | | | | [address] | [phone] | | | | | Mailcode: CDR | | | | | | [place] | | | | | | [place], [place] | | | | | | [address] | | | | | | [phone] | | | +--------+--------+ + + + [...]
--- OUTSIDE RECORDS SUMMARY | ~2019-02-23 | XMS | Encounter Summary ---
Demographics + + + | Address | [address] | | | [place] [address] | + + + | Home Phone [...] + | Debora Resendiz | ECON | [address] | | | | | [place] | | | | | [address] | | + + + + + [...] Team Providers + +------+ + | Care Ethylene Plant Helper Name | Role | Phone | [...] | on | AMBULATORY [address] | PHARMACY INFORMATICS SPECIALIST [address] | | | | | [address] | [address] | | | | | Mailcode: CH6A | [place], [place] | | | | | [place], [place] | [address] | | | | | [address] | [phone] | | | | | [phone] | | | +--------+ + + + [...]
--- OUTSIDE RECORDS SUMMARY | ~2019-02-23 | XMS | Encounter Summary ---
Demographics + + + | Address | [address] | | | [place] [address] | + + + | Home Phone [...] + | Debora Resendiz | ECON | [address] | | | | | [place] | | | | | [address] | | + + + + + [...] Team Providers + +------+ + | Care Decision Unit Rn Name | Role | Phone | + [...] Closed | | Pediatric | Diagnoses | [place], | Ped [facility]man | | | | Gastroenterol | Regional | Tania Landrum MD | Hem Onc Dch | | | | ogy | enteritis of | [address] | [address] | | | | | small | [address] | | | | | intestine | [address] | Mailcode: | | | | | with large | [place], [place] | DCH10C | | | | | intestine | [address] | [place]da | | | | | ([facility]) | Phone: | [place], [place] | | | | | Anorexia | [phone] | [address] | | | | | Procedures | Fax: | Phone: | | | | | [place] | [phone] | [phone] | | | | | INFLIXIMAB | | Fax: | | | | | INJECTION, | | [phone] | | | | | 10 MG MA | | | | | | | THR/PRPH/DX | | | | | | | IV INF,IN | | | | | | | MA | | | | | | | THER/PROPH/D | | | | | | | IAG IV | | | +--------+--------+ + + + + Encounter Details +--------+---------+ + + + | Date | Type | Department | Care Team | Description | +--------+---------+ + + + | 01/11/ | Office | Hematology | Wilmer, | High risk | | 2011 | Visit | Oncology at [facility] [address] | medications (not | | | | [facility] [address] | [address] [place], | anticoagulants) | | | | Mailcode: [facility] | [place] [address] | long-term use | | | | [place] | [phone] | (Primary Dx) | | | | [place], [place] | | | | | | [address] | | | | | | [phone] | | | +--------+---------+ + + + [...] Instructions Patient Instructions Sherron Guillen NP - 01/12/2012 1:38 PM PST Read on the [facility] website about medications, specifically Remicade and steroids. Be ready to talk about your medications. Remember to keep track of your irritability and try not to take it out on others. Try to do something nice for your mom today to show appreciation. documented in this encounter Progress Notes Wilmer WEINBERG, Sherron - 01/12/2012 1:14 PM PSTFormatting of this note might be differe nt from the original. PEDIATRIC GASTROENTEROLOGY IBD FOLLOW-UP CONSULTATION Jeremias Adames is an 16 y.o. male, who is referred by Tracey Galeas to Pediatric GI Cli vivi accompanied by his father and a friend for a scheduled Remicade infusion. Interval History: Jeremias has had improvement I his symptoms since initiation of prednisone. He is currently taking 35mg daily. He is scheduled for repeat EGD and colonoscopy to evaluate disease in 2 w eeks. The family has been stressed. Dad is working 2 jobs to make ends meet. Mom is scheduled for surgery soon. Mom works and has been unable to attend school recently. There is friction/co nflict in the relationship between mom and Jeremias. They have had difficulty getting to coun seling appointments because mom cannot drive after dark. Jeremias is failing 2 classes. He pl ans to try some credit recovery in online classes this summer. He is a Sophomore but missing many credits already. 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 Prednisone taper, 35mg daily Interval history update: Patient reports today that stools are 1/day and formed in consistency. Blood or mucus in the stool? No Urgency? no Abdominal pain? no Nausea? no. Vomiting? no. Energy level is normal, he does not need naps during the day, he wakes feeling rested. Slee ps 10 hours at night. Appetite is normal, he is eating 3 meals a day and snacks. New medical/surgical issues since last visit? None [...] Neurologic: Negative Social history: Lives with mom and dad and older sister. Missing school? no Medication compliance estimate improved, still misses doses sometimes, 80% or better Nutrition: Taking multivitamin? yes Calcium intake adequate? yes No Known Allergies Ht 171.5 cm (5' 7.52") (50 %ile), Wt 65.2 kg (143 lbs 11.8 oz) (74 %ile), Weight for age(%) 73.60%, BMI for age(%) 74.69%, Length for age(%) 50.36%, BP 121/73, Pulse 75, Temperatur e 36.9 C (98.4 F), Temperature source Oral, RR 24. (Taken on ThuJan 12, 2012 12:32 PM ) Examination: Appearance: alert, active and [...] signficant cervical or supraclavicular adenopathy Psychiatric- affect pleasant. Patient reports a pain level of 0 today. ___ No action required _X__ See assessment and plan Lab results from last GI visit: Abstract on 01/12/2012 Component Date Value Range OTHER (U/L) 01/08/2012 IFX 25.6 -<1.0 OTHER (U/L) 01/08/2012 ATI <3.1 -<3.1 Assessment : This is a patient with [...] Excessive thirst The inflammatory bowel is under improved/good control. Plan: 1. The following medications were changed: none There were no changes made in the remaining listed GI medications. 2. Labs or imaging ordered are listed below, including CBC, Liver set, IgG, protein 3.. Education: For further information on GI topics, we direct our families to www:GIKids.org and www.CCFA.org 4. Health care maintenance Instructional Writer exam every 2 years. Flu shot reminder: done Note: Immunosuppressed patients on Remicade, Humira, Cimzia, chronic steroids, methotrexate , imuran or 6-MP should not have live virus vaccinations , including the nasal flu mist, MMR or Varicella vaccination. 5. Next recommended follow-up in GI clinic: 8 weeks 6. Homework: Jeremias will read on the [facility] website about medications, specifically Remicade and steroids. He has an appointment to see the counselor later today. He will try to do yue ething nice for his mom today to show his appreciation. SHERRON RODRÍGUEZ NP [facility] GASTROENTEROLOGY HEMATOLOGY ONCOLOGY [address] [place] [address] Mailcode: Dch10c [place] [address] documented in t his encounter Plan of Treatment Not on filedocumented as of this encounter Procedures + +--------+ + + + | Procedure Name | Priori | Date/Time | Associated Diagnosis | Comments | | | ty | | | | + +--------+ + + + | LAB REPORTS | | 01/12/2012 | | Results for this | | | | 12:00 AM | | procedure are in the | | | | PST | | results section. | + +--------+ + + + documented in this encounter Results LAB REPORTS (01/12/2012 12:00 AM PST) + + + | Narrative | Performed At | + + + | | | | | | + + + + + | Procedure Note | + + | Lei Crane - 01/23/2012 12:02 PM PST | + + documented in this encounter Visit Diagnoses + + | Diagnosis | + + | High risk medications (not anticoagulants) long-term use - Primary Encounter for | | long-term (current) use of other medications | + + documented in this encounter
--- OUTSIDE RECORDS SUMMARY | ~2019-02-23 | XMS | Encounter Summary ---
Demographics + + + | Address | [address] | | | [place] [address] | + + + | Home Phone [...] + + | Author | [facility] | + + + | Organization | [facility] | + + + | Address | Unknown | + + + | Phone | Unavailable | + + + Support + + + + + | Name | Relationship | Address | Phone | + + + + + | Debora Resendiz | ECON | [address] | | | | | [place] | | | | | [address] | | + + + + + [...] Team Providers + +------+ + | Care Leather Polisher Name | Role | Phone | + [...] | | Required | ogy | | [place] | [place] | | | | | | [facility] | Mailcode: | | | | | | [place] | [facility] | | | | | | [address] | [address] | | | | | | [address] | [place], [place] | | | | | [address] | [address] | | | | | | [place], | Phone: | | | | | | [place] [address] | [phone] | | | | | | | Fax: | | | | | | | [phone] | +--------+ + + + + + [...] | | | [address] | [address] [place], | intestine, | | | | [facility] | [place] [address] | unspecified | | | | [address] | [phone] | complication (HCC) | | | | Mailcode: CDRCP | | (Primary Dx); | | | | [address] | | Abdominal pain, | | | | [place], [place] | | epigastric | | | | [address] | | | | | | [phone] | | | +--------+---------+ + + + [...] Be sure you are signed up for Logicalware if you have a computer at home online. 2. Get labs at [facility] 3. Set up labs for every 3 months with our GI nurses - ok to get in [place]. 4. Set up endoscopy and colonoscopy Follow-up: [...] out excellent online websites such as: GIKids.org MayoBaike.com.com KidshChiScanth.org DoerRapidlea.com/GI FAAN.org for information on food allergies IFFGD for functional gastrointestinal disorders For Liver Diseases: AASLD [place] Foundation offer excellent information. For Crohn's or ulcerative colitis information, CCFA.org is a great website. Great YOUTUBE ON IBD MEDS: http://www.Canopy Labsibd.com/en/understanding-ibd/rfgiskeqybdof-euy-xtmng-xjm-muhqtckc-rk-ibd-t herapies.html Results of tests: Results of laboratory tests, biopsies or Xrays will be sent to you by [employer]. Please ask at the front end manager for the code and instructions on how to sign up for this. If you do not have internet access, results will be sent by mail. Questions: If you have non-urgent questions, please send through [employer]. For urgent questions, please call the [facility] GI office at [phone]. [facility] PEDIATRIC GASTROENTEROLOGY [address] [place] [address] PHONE: COLONOSCOPY PREP INSTRUCTIONS PROCEDURE DATE: ARRIVAL [...] unless instructed to do so by your golf superintendent or doctor managing a shunt in your [...] morning medications, call the PREP CLINIC at [phone] If your child has a cold, cough, [...] before you are scheduled plea se call [phone] and leave a message including your child s name and date of , an d what procedure is scheduled plus the reason for cancelling. INSURANCE: Please bring your insurance card with you. As a courtesy, our office will contact your [employer] company to get authorization for the procedure; however, this is not a guarantee of p ayment. It is your responsibility to assure your insurance covers the procedure. CHECK-IN: [place] at the admitting desk on the lobby level (by Igor) of [facility]. After registration, go to the procedure area, 8th floor of [facility] A nurse or STOCK PARTS FABRICATOR will put a gown on your child, obtain their weight and vital signs, and [facility] er information. Your child may be [...] The time from arrival to departure from [facility] is about 4 - 5 hours. Biopsy results take up to 10 d ays- we will notify you when they are available. Please sign up for YellowSchedulehart for faster resu lts. AFTER THE PROCEDURE: [...] Please contact our Pediatric Gastroenterology Office at [phone] #3 or Toll Free at [phone] if you need any further information. For [...] Negative Social history: Lives with Father in [place]. Missing school? no Medication compliance estimate fair [...] minutes with family in this visit in qbzp-ht-clnt care and care coordin ation. With and without his parents. TANIA CAMP MD [facility] [address] [facility] Mailcode: [place] [id number] Lab on 11/17/2013 Component Date Value Range [...] [facility] | [address] | [place] [address] | | | SERVICES, CORE | PARK [...] | + + + + + | [facility] | [address] | [place] [address] | | | SERVICES, CORE | PARK [...] [facility] | [address] | [place] [address] | | | SERVICES, SPECIAL | PARK [...] [facility] | [address] | [place] [address] | | | SERVICES, SPECIAL | PARK [...] | + + + + + | [facility] | [address] | [place] [address] | | | SERVICES, CORE | PARK [...] [facility] | [address] | [place] [address] | | | SERVICES, CORE | [address] | | | + + + + + documented in this encounter Visit Diagnoses + + | Diagnosis | + + | Crohn's disease, small and large intestine, unspecified complication - Primary | + + | Abdominal pain, epigastric | + + documented in this encounter
--- OUTSIDE RECORDS SUMMARY | ~2019-02-23 | XMS | Encounter Summary ---
Demographics + + + | Address | [address] | | | [place] [address] | + + + | Home Phone [...] + | Debora Resendiz | ECON | [address] | | | | | [place] | | | | | [address] | | + + + + + [...] Team Providers + +------+ + | Care Drug Safety Assistant Name | Role | Phone | [...] | | | | Staff | at [facility] | | | | | | [facility] | | | | | | [address] | | | | | | Mailcode: DCH10C | | | | | | [place] | | | | | | [place], [place] | | | | | | [address] | | | | | | [phone] | | | +--------+ + + + [...] [facility] | [address] | [place] [address] | | | SERVICES, CORE | PARK [...] | + + + + + | [facility] | [address] | [place] [address] | | | SERVICES, CORE | [address] [...] + + + + + | [facility] | [address] | [place] [address] | | | [address] | [address] [...]
--- OUTSIDE RECORDS SUMMARY | ~2019-02-23 | XMS | Encounter Summary ---
Demographics + + + | Address | [address] | | | [place] [address] | + + + | Home Phone [...] + | Debora Resendiz | ECON | [address] | | | | | [place] | | | | | [address] | | + + + + + [...] Team Providers + +------+ + | Care Veneer Splicer Name | Role | Phone | + [...] | | Required | ogy | | [place] | [place] | | | | | | [facility] | Mailcode: | | | | | | [place] | [facility] | | | | | | [address] | [address] | | | | | | [address] | [place], [place] | | | | | | [address] | [address] | | | | | | [place], | Phone: | | | | | | [place] [address] | [phone] | | | | | | | Fax: | | | | | | | [phone] | +--------+ + + + + + [...] | | | [place] | [address] [place], | intestine with | | | | [facility] | [place] [address] | granuloma in the | | | | [address] | [phone] | colon, severe | | | | Mailcode: CDRCP | | duodenitis (Primary | | | | [address] | | Dx) | | | | [place], [place] | | | | | | [address] | | | | | | [phone] | | | +--------+---------+ + + + [...] Be sure you are signed up for [employer] if you have a computer at home online. 2. Consider getting a good air filter for the living room and your bedroom to decrease po llen. Check TripChamp, [employer]force or [employer]. 3. When working out, go for form, [...] out excellent online websites such as: GIKids.org ContextPlane.Manflu KidshPortrth.org MonCV.com/GI FAAN.org for information on food allergies For Liver Diseases: AASLD [place] Liver Foundation offer excellent information. For Crohn's or ulcerative colitis information, CCFA.org is a great website. Great YOUTUBE ON IBD MEDS: http://www.Ailvxing netd.com/en/understanding-ibd/dyekdahzcrnae-sgf-cpwxr-dsw-dclvmttf-tg-ibd-t herapies.html Results of tests: Results of laboratory tests, biopsies or Xrays will be sent to you by [employer]. Please ask at the front desk attendant for the code and instructions on how to sign up for this. If you do not have internet access, results will be sent by mail. Questions: If you have non-urgent questions, please send through [employer]. For urgent questions, please call the [facility] GI office at [phone]. documented in this encounter Progress Notes Tania [...] BMI 24.83 kg/(m^2). 86%ile (Z=1.08) based on [facility] 2-20 Years BMI-for-age data. Examination: Appearance: alert, [...] is quiet. We discussed the use of ARI selena to remind of need to take meds. Had discussion reg arding the followin. Alcohol - dangers, permanent destruction of life and opportunity with DUI, etc. 2. Taking responsibility for taking his own meds. 2. Bone health - gave copy of his DEXA and reminded him to not lift excessive weight. 3. Conjunctivitis - followed by intelligence support officer - not scleritis, etc. I asked the social insurance administrator, Olinda Donohue to meet with he and [...] minutes with family in this visit in fczy-bv-qokp care and care coordin ation. TANIA FOSTER MD [facility] GASTROENTEROLOGY [address] [facility] Mailcode: [place] [id number] documented in this enco unter Plan of [...] [facility] | [address] | [place] [address] | | | SERVICES, CORE | PARK [...] | + + + + + | [facility] [place] | [address] | [place] [address] | | | SERVICES, CORE | CRISTIAN [...] | + + + + + | [facility] | [address] | [place] [address] | | | SERVICES, SPECIAL | CRISTIAN [...] | + + + + + | [facility] | [address] [place] [address] | [place] [address] | | | [place] | | | | + + + [...] [facility] | [address] | [place] [address] | | | SERVICES, CORE | [address]RISTIAN [...]
--- OUTSIDE RECORDS SUMMARY | ~2019-02-23 | XMS | Encounter Summary ---
Demographics + + + | Address | [address] | | | [place] [address] | + + + | Home Phone [...] + | Debora Resendiz | ECON | [address] | | | | | [place] | | | | | [address] | | + + + + + [...] Team Providers + +------+ + | Care Junior Media Buyer Name | Role | Phone | [...] Closed | | Pediatric | Diagnoses | [place], | Ped [place] | | | | Gastroenterol | Regional | Tania Landrum MD | Hem Onc Dch | | | | ogy | enteritis of | [address] | [address] | | | | | small | [address] | | | | | intestine | [address] | Mailcode: | | | | | with large | [place], [place] | DCH10C | | | | | intestine | [address] | [address] | | | | | ([facility]) | Phone: | [place], [place] | | | | | Anorexia | [phone] | [address] | | | | | Procedures | Fax: | Phone: | | | | | [place] | [phone] | [phone] | | | | | INFLIXIMAB | | Fax: | | | | | INJECTION, | | [phone] | | | | | 10 MG [place] | | | | | | | THR/PRPH/DX | | | | | | | IV INF,IN | | | | | | | [place] | | | | | | | [...] Oncology at [facility] [address] | [address] | medications (not | | | | [facility] [address] | [address], | anticoagulants) | | | | Mailcode: [facility] | [place] [address] | long-term use | | | | [place] | [phone] | (Primary Dx) | | | | [place], [place] | | | | | | [address] | | | | | | [phone] | | | +--------+---------+ + + + [...] 01/12/2012 1:38 PM PST Read on the [facility] website about medications, specifically Remicade and steroids. [...] www:GIKids.org and www.CCFA.org 4. Health care maintenance Chief Of Field Operations exam every 2 years. Flu shot reminder: done Note: Immunosuppressed patients on Remicade, Humira, Cimzia, chronic steroids, methotrexate , imuran or 6-MP should not have live virus vaccinations , including the nasal flu mist, MMR or Varicella vaccination. 5. Next recommended follow-up in GI clinic: 8 weeks 6. Homework: Jeremias will read on the [facility] website about medications, specifically Remicade and steroids. He has an appointment to see the counselor later today. He will try to do yue ething nice for his mom today to show his appreciation. SHERRON RODRÍGUEZ NP [facility] GASTROENTEROLOGY HEMATOLOGY ONCOLOGY [address] [place] [address] Mailcode: [address]ch[address] [place] [address] documented in t his encounter [...]
--- OUTSIDE RECORDS SUMMARY | ~2019-02-23 | XMS | Encounter Summary ---
Demographics + + + | Address | [address] | | | [place] [address] | + + + | Home Phone [...] + | Debora Resendiz | ECON | [address] | | | | | [place] | | | | | [address] | | + + + + + [...] Team Providers + +------+ + | Care Commissary Steward Name | Role | Phone | + +------+ + | Tracey Galeas MD | PCP | Unavailable | + +------+ + Encounter Details +--------+ + + + + | Date | Type | Department | Care Team | Description | +--------+ + + + + | 03/08/ | Documentati | Vascular Access at | [place], | | | 2012 | on | [facility] [address] | [address] | | | | | [address] | [address] [facility] | | | | | [facility] | [place], [place] | | | | | [place], [place] | [address] | | | | | [address] | | | | | | [phone] | | | +--------+ + + + [...]
--- OUTSIDE RECORDS SUMMARY | ~2019-02-23 | XMS | Encounter Summary ---
Demographics + + + | Address | [address] | | | [place] [address] | + + + | Home Phone [...] + | Debora Resendiz | ECON | [address] | | | | | [place] | | | | | [address] | | + + + + + [...] Team Providers + +------+ + | Care Aquaculture Worker Name | Role | Phone | + +------+ + | Tracey Galeas MD | PCP | Unavailable | + +------+ + Reason for Visit Diagnostic Testing (Routine) [...] | | | | | intestine | [place], [place] | [address] | | | | | ([facility]) | [address] | [place] | | | | | Procedures | Phone: | Research | | | | | MR | [phone] | Center | | | | | ENTEROGRAPHY | Fax: | [place], [place] | | | | | ABDOMEN AND | [phone] | [address] | | | | | [address] | | Phone: | | | | | CONTRAST | | [phone] | | | | | | | Fax: | | | | | | | [phone] | +--------+--------+ + + + + Encounter Details +--------+ + + + + | Date | Type | Department | Care Team | Description | +--------+ + + + + | 03/14/ | Hospital | Diagnostic Imaging | | No Show | | 2011 | Encounter | Services at [facility] | | | | | | [address] | | | | | | [place] Mailcode: | | | | | | [address] [facility] | | | | | | [place], [place] | | | | | | [address] | | | | | | [phone] | | | +--------+ + + + [...]
--- OUTSIDE RECORDS SUMMARY | ~2019-02-23 | XMS | Encounter Summary ---
Demographics + + + | Address | [address] | | | [place] [address] | + + + | Home Phone [...] + | Debora Resendiz | ECON | [address] | | | | | [place] | | | | | [address] | | + + + + + [...] Providers + +------+ + | Care Textile Coating Machine Operator Name | Role | Phone | + +------+ + | Tracey Galeas MD | PCP | Unavailable | + +------+ + Encounter Details +--------+------+ + + + | Date | Type | Department | Care Team | Description | +--------+------+ + + + | 10/19/ | Lab | Lab Center at [facility] | | Crohn's disease, | | 2011 | | 7th Floor [address] | | small and large | | | | [address] [place], | | intestine with | | | | [place] [address] | | granuloma in the | | | | [phone] | | colon, severe | | | [...] BASO # | 0.0 | <0.3 | [facility] | | | | | | DEPARTMENT [...] | + + + + + | [facility] DEPARTMENT OF | [address] | [place] [address] | | | PATHOLOGY | [address] [...] DEPARTMENT OF | [address] | [place] [address] | | | PATHOLOGY | [address] [...] + + + + | [facility] | [address] | [place] [address] | | | PATHOLOGY | [address] [...] effective 01/24/11 | [facility] | | [facility]) Blaise | ISABEL | | [place] [address] [address] [facility] | LABORATORY | | [place] [address] | | + + + + + + + + | Performing | Address | City/State/Zipcode | Phone Number | | Organization | | | | + + + + + | [facility] | [address] | [place] [address] | | | LABORATORY | | | [...] At | + + + | [facility] ([facility]) | [facility] | | [facility] [place] [address] | REGIONAL | | [place] [address] | LABORATORY | + + + + + + + + | Performing | Address | City/State/Zipcode | Phone Number | | Organization | | | | + + + + + | [facility] | [address] | [place] [address] | | | LABORATORY | | | [...] DEPARTMENT OF | [address] | [place] [address] | | | PATHOLOGY | [address] [...] + + + + | [facility] | [address] | [place] [address] | | | PATHOLOGY | [address] [...]
--- OUTSIDE RECORDS SUMMARY | ~2019-02-23 | XMS | Encounter Summary ---
Demographics + + + | Address | [address] | | | [place] [address] | + + + | Home Phone [...] + | Debora Resendiz | ECON | [address] | | | | | [place] | | | | | [address] | | + + + + + [...] Providers + +------+ + | Care Pharmacy Technician Assistant Name | Role | Phone | + +------+ + | Tracey Galeas MD | PCP | Unavailable | + +------+ + Encounter Details +--------+ + + + + | Date | Type | Department | Care Team | Description | +--------+ + + + + | 09/28/ | Grounds Person | Pediatric | Tania Foster MD | Crohn's disease, | | 2011 | | Gastroenterology at | [address] | small and large | | | | [place] | [address] [place], | intestine with | | | | [facility] | [place] [address] | granuloma in the | | | | [address] | [phone] | colon, severe | | | | Mailcode: CDRCP | | duodenitis; High | | | | [place] | | risk medications | | | | [place], [place] | | (not anticoagulants) | | | | [address] | | long-term use | | | | [phone] | | | +--------+ + + + [...]
--- OUTSIDE RECORDS SUMMARY | ~2019-02-23 | XMS | Encounter Summary ---
Demographics + + + | Address | [address] | | | [place] [address] | + + + | Home Phone [...] + | Debora Resendiz | ECON | [address] | | | | | [place] | | | | | [address] | | + + + + + [...] Providers + +------+ + | Care Administrative Services Officer Name | Role | Phone | [...] | | | | | intestine | [place], [place] | [address] [place] | | | | | ([facility]) | [address] | for Health | | | | | Procedures | Phone: | and Healing, | | | | | BONE DENSITY | [phone] | [address] | | | | | PROCEDURE | Fax: | [place], [place] | | | | | | [phone] | [address] | | | | | | | Phone: | | | | | | | [phone] | | | | | | | Fax: | | | | | | | [phone] | +--------+--------+ + + + + Reason [...] | [address] | [address] | | | | | small | [address] | | | | | intestine | [address] | Mailcode: | | | | | with large | [place], [place] | DCH10C | | | | | intestine | [address] | [place] | | | | | (HCC) | Phone: | [place], [place] | | | | | Procedures | [phone] | [address] | | | | | NE | Fax: | Phone: | | | | | INFLIXIMAB | [phone] | [phone] | | | | | INJECTION, | | Fax: | | | | | 10 MG [address] | | [phone] | | | | | THER/PROPH/D | | | | | | | IAG IV NE | | | | | | [...] Visit | Gastroenterology at | [address] [facility] | small and large | | | | [place] | [address] [place], | intestine with | | | | [facility] | [place] [address] | granuloma in the | | | | [address] | [phone] | colon, severe | | | | Mailcode: CDRCP | | duodenitis (Primary | | | | [place] | | Dx) | | | | [place], [place] | | | | | | [address] | | | | | | [phone] | | | +--------+---------+ + + + [...] good control, changing to Humira. Read on Make Meaning or [employer] or [employer]. Follow-up: The next recommended follow-up in GI [...] check out excellent online websites such as: [email or web address] Results of tests: Results of laboratory tests, biopsies or Xrays will be sent to you by [employer]. Please ask at the javascript front end developer for the code and instructions on how to sign up for this. It t akes only 2 minutes to sign up. Note: If you do not have internet access, results will be sent by mail. Questions: If you have non-urgent questions, they can be sent by [employer]. For urgent questions, please call the [facility] GI office at [phone]. documented in this encounter Progress Notes Tania [...] developed and its performance characteristics determined by [employer]. It has not been cleared or approved [...] Lab results from last GI visit: Clinical Tire Regrooving Machine Operator on 06/28/2012 Component Date Value Range ALBUMIN, [...] good control, changing to Humira. Read on [employer].AdYapper or [employer]Plus or [employer]. Follow-up: The next recommended follow-up in GI clinic: 8 wk TANIA CAMP MD [facility] GASTROENTEROLOGY [address] [facility] Mailcode: [place] [address] documented in this enco unter [...]
--- OUTSIDE RECORDS SUMMARY | ~2019-02-23 | XMS | Encounter Summary ---
Demographics + + + | Address | [address] | | | [place] [address] | + + + | Home Phone [...] Author + + + | Author | [facility] | + + + | Organization | [facility] | + + + | Address | Unknown | + + + | Phone | Unavailable | + + + Support + + + + + | Name | Relationship | Address | Phone | + + + + + | Debora Resendiz | ECON | [address] | | | | | [place] | | | | | [address] | | + + + + + [...] Team Providers + +------+ + | Care Bank Messenger Name | Role | Phone | + [...] | | | Griselda | [address] [place], | | | | | [facility] | [place] [address] | | | | | [address] [facility] | [phone] | | | | | Mailcode: SUKUMAR | | | | | | Griselda | | | | | | [place], [place] | | | | | | [address] | | | | | | [phone] | | | +--------+ + + + [...] + | [facility] | [address] | [place] [address] | | | [place] | | | [...] + | [facility] | [address] | [place] [address] | | | [place] | | | | + + + [...] + | [facility] | [address] | [place] [address] | | | [place] | | | [...] + | [facility] | [address] | [place] [address] | | | [place] | | | [...] + | [facility] | [address] | [place] [address] | | | [place] | | | [...] + | [facility] | [address] | [place] [address] | | | [place] | | | | + + + + + documented in this encounter Visit Diagnoses + + | Diagnosis | + + | Neutropenia (HCC) - Primary | + + documented in this encounter"
--- OUTSIDE RECORDS SUMMARY | ~2019-02-23 | XMS | Encounter Summary ---
Demographics + + + | Address | [address] | | | [place] [address] | + + + | Home Phone [...] + | Debora Resendiz | ECON | [address] | | | | | [place] | | | | | [address] | | + + + + + [...] Team Providers + +------+ + | Care Moisture Meter Reader Name | Role | Phone | + +------+ + | Srinivas Stephens DO | PCP | | + +------+ + Encounter Details +--------+ + + + + | Date | Type | Department | Care Team | Description | +--------+ + + + + | 12/14/ | Canopy Inspector | Pediatric | Tania Foster MD | | | 2015 | | Gastroenterology at | [address] | | | | | Gr[place]da | [address] [place], | | | | | [facility] | [place] [address] | | | | | [address] | [phone] | | | | | Mailcode: [facility] | | | | | | Griselda | | | | | | [place], [place] | | | | | | [address] | | | | | | [phone] | | | +--------+ + + + [...]
--- OUTSIDE RECORDS SUMMARY | ~2019-02-23 | XMS | Encounter Summary ---
Demographics + + + | Address | [address] | | | [place] [address] | + + + | Home Phone [...] + | Debora Resendiz | ECON | [address] | | | | | [place] | | | | | [address] | | + + + + + [...] Providers + +------+ + | Care Digital Designer Name | Role | Phone | + +------+ + | Srinivas Stephens DO | PCP | | + +------+ + Encounter Details +--------+ + + + + | Date | Type | Department | Care Team | Description | +--------+ + + + + | 12/14/ | Card Tender | Pediatric | Tania Foster MD | | | 2015 | | Gastroenterology at | [address] | | | | | [place] | [address] [place], | | | | | [facility] | [place] [address] | | | | | [address] | [phone] | | | | | Mailcode: [facility] | | | | | | Griselda | | | | | | [place], [place] | | | | | | [address] | | | | | | [phone] | | | +--------+ + + + [...]
--- OUTSIDE RECORDS SUMMARY | ~2019-02-23 | XMS | Encounter Summary ---
Demographics + + + | Address | [address] | | | [place] [address] | + + + | Home Phone [...] + | Debora Resendiz | ECON | [address] | | | | | [place] | | | | | [address] | | + + + + + [...] Team Providers + +------+ + | Care Pipe Caulker Name | Role | Phone | + [...] [facility] | Humira injections) | | | | Griselda | [address] Ye[address] [place], | | | | | [facility] | [place] [address] | | | | | [address] | [phone] | | | | | Mailcode: CDRCP | | | | | | Griselda | | | | | | [place], [place] | | | | | | [address] | | | | | | [phone] | | | +--------+ + + + [...]
--- OUTSIDE RECORDS SUMMARY | ~2019-02-23 | XMS | Encounter Summary ---
Demographics + + + | Address | [address] | | | [place] [address] | + + + | Home Phone [...] + | Debora Resendiz | ECON | [address] | | | | | [place] | | | | | [address] | | + + + + + [...] Team Providers + +------+ + | Care Building Consultant Name | Role | Phone | + +------+ + | Tracey Galeas MD | PCP | Unavailable | + +------+ + Reason for Visit +--------+ + | Reason | Comments | +--------+ + | Other | [facility] | +--------+ + Encounter Details +--------+ + + + + | Date | Type | Department | Care Team | Description | +--------+ + + + + | 08/19/ | Telephone | Pediatric | Tania Foster MD | Other ([facility] | | 2012 | | Gastroenterology at | [address] [facility] | [facility]) | | | | [place]da | [address] [place], | | | | | [facility] | [place] [address] | | | | | [address] | [phone] | | | | | Mailcode: CDRCP | | | | | | Griselda | | | | | | [place], [place] | | | | | | [address] | | | | | | [phone] | | | +--------+ + + + [...] | | + +------+--------+ + + | QUANTIFERON TB GOLD, | Lab | Routin | Crohn's disease, | Ordered: 08/19/2012 | | BLOOD | | e | small and large [...] | | | medications | | + +------+--------+ + + documented [...]
--- OUTSIDE RECORDS SUMMARY | ~2019-02-23 | XMS | Encounter Summary ---
Demographics + + + | Address | [address] | | | [place] [address] | + + + | Home Phone [...] + | Debora Resendiz | ECON | [address] | | | | | [place] | | | | | [address] | | + + + + + [...] Team Providers + +------+ + | Care Amortization Clerk Name | Role | Phone | [...] + + | 06/18/ | Hospital | [facility] [address] | Dudley Collazo | | | 2011 - | Encounter | [address] [place], | [place] [address] | | | | | [place] [address] | [address] | | | 06/21/ | | [phone] | [place] [address] | | | 2011 | | | [phone] | | | | | | | [...] Dr Muir. Megha SOTO Ino Soto, Sayda [place] M - 06/22/2011 11:35 AM PDTFormatting of [...] IV Solumedrol . Will be monitored with [facility] nurse visit. FEN: vitamin D level low [...] MD Discharging Attending: Julee Quintana MD [facility] [place] [address] documented in this enc ounter Discharge Instructions [...] ities tomorrow. Call the Pediatric GI provider family practice nurse practitioner for urgent matters If you see any of these signs, call the GI office at [phone] (option [phone]) during regular business hours, or the GI provider family practice nurse practitioner after hours for the following: Increased pain [...] take usual medicines unless told otherwise by [facility] doctor. How to Reach Your GI Provider: Mon-Fri from 8:00-4:30, call GI Office at [phone]. After hours, weekends, & holidays, call [facility] Chief Petroleum Engineer at [phone]; ask to edwards ve the Pediatric GI provider family practice nurse practitioner paged for urgent patient issues as described above. Results: Biopsy results may take 10 days to come back; we will contact you when we receive the res ults. Assure that our check-in desk has your contact numbers. Please sign up for [employer] in order to receive results faster, if [...] of this note might be different from [facility] original. INPATIENT PEDIATRIC GASTROENTEROLOGY PROGRESS NOTE ATTENDING: [...] General Appearance: Active, alert, NAD Head: Mild Coalgood face Eyes,Ears, Nose, Throat: No icterus, MMM [...] JULIAN MD [facility] [address] [facility] [address] [facility] DEPARTMENT: [id number] PED GASTRO [facility] Place of Service: [address] - Date of Service: 06/22/2011 CSN: [id number] Suggested Level of Care: 81920 - Subsequent -1 HPI, 1 ROS, 2-4 [...] Crohn's disease does not respond to steroids. [place] better after Infliximab. - Low Vit D level. RECOMMENDATIONS/PLAN: - Continue current care. - If continues to do well, OK to d/c to home from GI point view. - GI office will schedule the following Infliximab infusions. - Vit D 50,000 weekly x 3 months for Vit D deficiency. MARIUSZ JULIAN MD [facility] [address] [facility] [address] [facility] DEPARTMENT: [id number]- [facility] GASTRO [facility] Place of Service: [address]343 - Date of Service: 06/21/2011 CSN: [id number] Suggested Level of Care: 30802 - Subsequent -2 HPI, 2 ROS, 1 [...] t herapy. EVAN RUBIN MD Pediatric Gastroenterology [facility] DEPARTMENT: [id number]- PED GASTRO [facility] Place of Service: 608[address] - Date of Service: 06/20/2011 CSN: [id number] Suggested Level of Care: 33372 - Subsequent -1 HPI, 1 ROS, 2-4 [...] appetite when having a fl are. Drinks [place] Instant Breakfast + 1% milk at home, [...] month, wt up since . Estimated needs: 7397-0999 calories (DRI), 1.5-2.0 g/kg pro, 2200 ml fluid PLAN: 1. Encourage po, low fiber diet. Sending chocolate CIB + 2% milk BID. 2. Will provide low fiber diet education 3. Rec check 25-OH vitamin D level 4. RD following Mesha Neri RD, LD Pediatric Dietitian [facility] [phone] Pager #: [phone] Dudley Oliva MD - 06/20/2011 8:09 AM PDT [facility] Carlita Attending addendum Hosp day # 1 [...] | + +--------+ + + + | MT COLONOSCOPY, | Routin | 06/19/2011 | | Results for this | | FLEX, W/BIOPSY | e | 7:54 AM | | procedure are in the | | | | PDT | | results section. | + +--------+ + + + | MT UPPER GI | Routin | 06/19/2011 | [...] | | to family. TANIA FOSTER MD [facility] [address] | | | [id number] [place] [address] cc: Tracey | | | MD Gudelia [facility] DEPARTMENT: [id number]- [facility] GASTRO [facility] | | | Place of Service: - Date of Service: 01/30/2012 MEDICAL | | | RECORD NUMBER [id number] CSN: [id number] Suggested Level of Care: | | | [address] - Colonoscopy w/Biopsy and 64714 EGD with biopsies | | + + + + + | Procedure Note | + + | Tania Fsoter MD - 01/30/2012 9:20 AM PST Formatting [...] procedure labeled and given to family.[facility] [address] | | [id number] [place], [place] [id number]: Tracey Galeas [facility] DEPARTMENT: | | [id number]- PED GASTRO [facility] Place of Service: - OPDate of Service: | | 01/30/2012MEDICAL RECORD NUMBER [id number]: [id number] Level of Care: 48847 - | | Colonoscopy w/Biopsy and 17506 EGD with biopsies | |Gastric Antrum: 2 [...] | |[facility] 8S | |[address] | |[id number] | |[place] [address] | |[phone] | | | |cc: Tracey Galeas MD | | | |[facility] DEPARTMENT: [id number]- PED GASTRO [facility] | |Place of Service: [address]12[address] - OP | |Date of Service: 01/30/2012 | | | |CSN: [id number] | |Suggested Level of Care: 01352 - Colonoscopy w/Biopsy and 49872 EGD with biopsies | + + HEPATITIS [...] [facility] | [facility] | [facility] [place] [address] | REGIONAL | | [place] [address] | LABORATORY | + + + + + + + + | Performing | Address | City/State/Zipcode | Phone Number | | Organization | | | | + + + + + | [facility] | [address] | [place] [address] | | | LABORATORY | | | [...] DEPARTMENT OF | [address] | [place] [address] | | | PATHOLOGY | [address] [...] + + + + | [facility] | [address] | [place] [address] | | | PATHOLOGY | [address] [...] by | | | | | | [employer], | | | | | | | | | | | | [address] | | | | | | [facility] [address] | | | | | | [phone] | | | | | | | | | | | | www.[employer], | | | | | | Lyla Serrano MD - | | | | | | Lab. Director | | | | + + + + + + + + | Specimen | + + | Blood - Blood | + + + + + + + | Performing | Address | City/State/[facility] Cent[facility]ode | Phone Number | | Organization | | | | + + + + + | [facility] | [address] | [place], [place] | | | [facility] | | [address] | | + + + + + [...] [facility] DEPARTMENT OF | [address] | [place] [address] | | | PATHOLOGY | [address] [...] | [facility] | | [place] [place] [address] | REGIONAL | | [place] [address] | LABORATORY | + + + + + + + + | Performing | Address | City/State/Zipcode | Phone Number | | Organization | | | | + + + + + | [facility] | [address] | [place] [address] | | | LABORATORY | | | [...] [facility] DEPARTMENT OF | [address] | [place] [address] | | | PATHOLOGY | [address] [...] 9 | 4 - 11 mmol/L | [facility] | | | GAP(ALB | | | [...] [facility] DEPARTMENT OF | [address] | [place] [address] | | | PATHOLOGY | [address] | | | + + + + + MT UPPER GI ENDOSCOPY,BIOPSY (06/19/2011 7:54 AM PDT)MT COLONOSCOPY, FLEX, W/BIOPSY (06/18 7:54 AM PDT)ORDERS [...] + + + + | [facility] | [address] | [place] [address] | | | PATHOLOGY | [address] [...]
--- OUTSIDE RECORDS SUMMARY | ~2019-02-23 | XMS | Encounter Summary ---
Demographics + + + | Address | [address] | | | [place] [address] | + + + | Home Phone [...] + | Debora Resendiz | ECON | [address] | | | | | [place] | | | | | [address] | | + + + + + [...] Team Providers + +------+ + | Care Tire Man Name | Role | Phone | + +------+ + | Tracey Galeas MD | PCP | Unavailable | + +------+ + Reason for Visit + + + | Reason | Comments | + + + | Diarrhea | | + + + | Abdominal pain | | + + + | Weight gain | Poor weight gain | + + + Consultation (Routine) +--------+ [...] | Diarrhea | Tracey Chiu MD | [facility] [address] | | | Required | ogy | Abnormal | [place] | [address] | | | | | weight gain | PERMANENTE | Mailcode: | | | | | Anemia, | [place] | CDRCP | | | | | unspecified | [address] | [address] | | | | | | [place] | [place], [place] | | | | | | [address] | [address] | | | | | | [facility] Phone: | | | | | | [place] [address] | [phone] | | | | | | | Fax: | | | | | | | [phone] | +--------+ + + + + + Encounter Details +--------+---------+ + + + | Date | Type | Department | Care Team | Description | +--------+---------+ + + + | 02/04/ | Office | Pediatric | Tania oFster MD | Weight loss; | | 2010 | Visit | Gastroenterology at | [address] [facility] | Diarrhea; Heartburn; | | | | [address] [place], | Anemia; Abdominal | | | | [facility] | [place] [address] | pain, acute, right | | | | [address] | [phone] | upper quadrant; | | | | Mailcode: [facility] | | Nausea | | | | [place] | | | | | | [place], [place] | | | | | | [address] | | | | | | [phone] | | | +--------+---------+ + + + [...] + + + | Blood Pressure | 124/68 | 02/04/2011 2:11 PM | | | | | PST | | + + + + + | Pulse | 89 | 02/04/2011 2:11 PM | | | | | PST [...] + + + + | Weight | 53.8 kg (118 lb 9.7 | 02/04/2011 2:11 PM | | | | oz) | PST | | + + + + + | Height | 165.8 cm (5' 5.28") | 02/04/2011 2:11 PM | | | | | PST | | + + + + + | Body Mass Index | 19.57 | 02/04/2011 2:11 PM | | | | | PST | | + + + + + documented in this encounter Patient Instructions Patient Instructions Tania Foster MD - 02/04/2011 2:49 PM PSTPREPARATION FOR COLONOSCOPY - we need a squeaky clean colon Follow the instructions for colon prep carefully so we may complete the study. Avril will call you. CLEAR LIQUIDS SHOULD NOT BE RED IN COLOR & INCLUDE THE FOLLOWING; Apple or grape juice Sport Drinks such as Gatorade or Pedialyte Gelatin (Jello) Broth - chicken, beef or vegetable - clear ones only Store list: Pediatric glycerin suppositories Miralax Senna syrup ("Little Tummies") or Ex-Lax chocolate squares Juice- apple or grape Pedialyte Gatorade Jello Broth documented in this encounter Progress Notes Tania Foster MD - 02/04/2011 2:36 PM PST PEDIATRIC GASTROENTEROLOGY CLINIC INITIAL CONSULTATION Jeremias Adames is an 15 y.o. male, who is referred by Tracey Galeas to Pediatric GI Cli vivi in consultation for weight loss and diarrhea, and was accompanied by keo huitron. HPI:This is a patient with chronic heartburn who developed diarrhea a couple of months ago. No blood in the stool or mucus. Sleeping OK. He is hungry a lot, but has lot weight. Abdominal pain is right sided, sharp, and started a couple Of days ago. It lasts a few min utes. It is usually during the day. He has chronic nausea as well. No vomiting chronically. Therapy tried - no acid suppression Lab/ imaging workup to date notable for: December, CRP of 1.0 and Hb of 12.1 with mcv of 71. Calprotectin 874. Past medical history: Past Surgical History Procedure Date Back surgery Tonsillectomy Tonsil and adenoidectomy Family history of Crohn's, ulcerative colitis, celiac/Hirschsprung's disease, peptic ulcers , food allergies, JOY, polyps, liver disease or bleeding disorder? none Social history: Lives with mother, step dad and sib and attends 9th grade. Review of Systems: General: No fevers, fatigue, chills, weight loss Eyes: negative Ears, Nose and Throat: Negative Respiratory: Negative Musculoskeletal: Negative Cardiovascular: Negative Genitourinary:Negative Neurologic: Negative Skin: Negative Psychological: Negative Heme/Lymphatic: Negative Allergic: Negative Rest of ROS negative except as noted in the HPI Patient Active Problem List Diagnoses Weight loss Diarrhea Heartburn Anemia Current Outpatient Prescriptions Medication Sig dicyclomine 20 mg Oral Tablet Take 20 mg by mouth as needed. ondansetron 8 mg Oral Tablet Take 8 mg by mouth every twelve hours as needed. No Known Allergies Ht 165.8 cm (5' 5.28") (46 %ile), Wt 53.8 kg (118 lbs 9.7 oz) (52 %ile), BP 124/68, Pulse 8 9, BMI 19.57 kg/(m^2). 52.32% of growth percentile based on BMI-for-age. Examination: [...] no murmurs. Abdomen: normal bowel sounds, soft, non- distended, no tenderness to palpation, no reboun d or guarding, no palpable masses,no hepatosplenomegaly Back-no CVA tenderness, no deep dimples Musculoskeletal: grossly intact without clubbing or edema Neuro: appropriate interactions, symmetric facies; gait normal Nodes: no signficant cervical or supraclavicular adenopathy Psychiatric- affect appropriate Patient reports a pain level of 0 today. ___ No action required ___ See assessment and plan Assessment and plan: This is a patient with the following chronic conditions: 1. Abnormal weight loss - he will drink ensure for extra Kcal and protein. We will set up an egd and colonoscopy to evaluate for celiac or Crohn's disease. The elev ated calprotectin implies colitis. 2. Chronic diarrhea - stop high fructose items, and undergo egd and colonoscopy 3. Right sided abdominal pain - start Zantac. 4. Nausea egd and Start Zantac Education provided to family: egd and colonoscopy and obtained consent. For information and handouts on many GI topics, see [email or web address]. We appreciate the opportunity to participate in the medical care of this patient and family . If you have any questions, please do not hesitate to call. MD [facility] GASTROENTEROLOGY [address] [facility] Mailcode: [facility] [phone] documented in this enco unter Plan of [...]
--- OUTSIDE RECORDS SUMMARY | ~2019-02-23 | XMS | Encounter Summary ---
Demographics + + + | Address | [address] | | | [place] [address] | + + + | Home Phone [...] + | Debora Resendiz | ECON | [address] | | | | | [place] | | | | | [address] | | + + + + + [...] Team Providers + +------+ + | Care Counselor Camp Name | Role | Phone | + [...] | | | | | intestine | [place], [place] | [address] | | | | | ([facility]) | [address] | [place] | | | | | Procedures | Phone: | Research | | | | | MR | [phone] | Center | | | | | ENTEROGRAPHY | Fax: | [place], [place] | | | | | ABDOMEN AND | [phone] | [address] | | | | | [facility] | | Phone: | | | | | CONTRAST | | [phone] | | | | | | | Fax: | | | | | | | [phone] | +--------+--------+ + + + + Encounter Details +--------+ + + + + | Date | Type | Department | Care Team | Description | +--------+ + + + + | 03/14/ | Hospital | Diagnostic Imaging | | No Show | | 2011 | Encounter | Services at [facility] | | | | | | [address] | | | | | | [place] Mailcode: | | | | | | [address] [facility] | | | | | | [place], [place] | | | | | | [address] | | | | | | [phone] | | | +--------+ + + + [...]
--- OUTSIDE RECORDS SUMMARY | ~2019-02-23 | XMS | Encounter Summary ---
Demographics + + + | Address | [address] | | | [place] [address] | + + + | Home Phone [...] + | Debora Resendiz | ECON | [address] | | | | | [place] | | | | | [address] | | + + + + + [...] Team Providers + +------+ + | Care Outsole Beveler Name | Role | Phone | + +------+ + | Srinivas Stephens DO | PCP | | + +------+ + Reason for Visit + + + | Reason | Comments | + + + | Refill Request | Humira | + + + Encounter Details +--------+--------+ + + + | Date | Type | Department | Care Team | Description | +--------+--------+ + + + | 01/03/ | Refill | Pediatric | Tania Foster MD | Refill Request | | 2014 | | Gastroenterology at | [address] | ([place]) | | | | [place] | [address] [place], | | | | | [facility] | [place] [address] | | | | | [address] | [phone] | | | | | Mailcode: CDR | | | | | | [place] | | | | | | [place], [place] | | | | | | [address] | | | | | | [phone] | | | +--------+--------+ + + + [...]
--- OUTSIDE RECORDS SUMMARY | ~2019-02-23 | XMS | Encounter Summary ---
Demographics + + + | Address | [address] | | | [place] [address] | + + + | Home Phone [...] Author + + + | Author | [facility] | + + + | Organization | [facility] | + + + | Address | Unknown | + + + | Phone | Unavailable | + + + Support + + + + + | Name | Relationship | Address | Phone | + + + + + | Debora Resendiz | ECON | [address] | | | | | [place] | | | | | [address] | | + + + + + [...] Team Providers + +------+ + | Care Ethylbenzene Oxidizer Name | Role | Phone | + [...] | | | [place] | [address] [place], | | | | | [facility] | [place] [address] | | | | | [address] | [phone] | | | | | Mailcode: [place]AR | | | | | | [place] | | | | | | [place], [place] | | | | | | [address] | | | | | | [phone] | | | +--------+ + + + [...]
--- OUTSIDE RECORDS SUMMARY | ~2019-02-23 | XMS | Encounter Summary ---
Demographics + + + | Address | [address] | | | [place] [address] | + + + | Home Phone | | + + + | Preferred Language | Unknown | + + + | Marital Status | Single | + + + | Sabianist Affiliation | NON | + + + [...] + | Debora Resendiz | ECON | [address] | | | | | [place] | | | | | [address] | | + + + + + [...] Providers + +------+ + | Care Manager Career Name | Role | Phone | + +------+ + | Tracey Galeas MD | PCP | Unavailable | + +------+ + Reason for Visit +--------+ + | Reason | Comments | +--------+ + | Other | Answer eden ELMORE | +--------+ + Encounter Details +--------+ + + + + | Date | Type | Department | Care Team | Description | +--------+ + + + + | 08/09/ | Telephone | Pediatric | Tania Foster MD | Other (Answer IFX, | | 2012 | | Gastroenterology at | [address] [facility] | ed[place]) | | | | [place] | [address] [place], | | | | | [facility] | [place] [address] | | | | | [address] | [phone] | | | | | Mailcode: [facility] | | | | | | [place] | | | | | | [place], [place] | | | | | | [address] | | | | | | [phone] | | | +--------+ + + + [...] of this encounter Patient Instructions Patient Instructions Deena Castro RN - 10/01/2012 10:01 AM PDT documented in this encounter Plan of Treatment Not on filedocumented as of this encounter Visit Diagnoses + + | Diagnosis | + + | Crohn's disease, 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
--- OUTSIDE RECORDS SUMMARY | ~2019-02-23 | XMS | Encounter Summary ---
Demographics + + + | Address | [address] | | | [place] [address] | + + + | Home Phone [...] + + + | Author | [facility] | + + + | Organization | [facility] | + + + | Address | Unknown | + + + | Phone | Unavailable | + + + Support + + + + + | Name | Relationship | Address | Phone | + + + + + | Debora Resendiz | ECON | [address] | | | | | [place] | | | | | [address] | | + + + + + [...] Team Providers + +------+ + | Care Blood Bank Specialist Name | Role | Phone | [...] | | Gastroenterology at | [address] [facility] | [place]) | | | | [place] | [address] [place], | | | | | [facility] | [place] [address] | | | | | [address] | [phone] | | | | | Mailcode: [facility] | | | | | | [place] | | | | | | [place], [place] | | | | | | [address] | | | | | | [phone] | | | +--------+ + + + [...]
--- OUTSIDE RECORDS SUMMARY | ~2019-02-23 | XMS | Encounter Summary ---
Demographics + + + | Address | [address] | | | [place] [address] | + + + | Home Phone [...] + | Debora Resendiz | ECON | [address] | | | | | [place] | | | | | [address] | | + + + + + [...] Providers + +------+ + | Care Chief Unit Forester Name | Role | Phone | + +------+ + | Tracey Galeas MD | PCP | Unavailable | + +------+ + Reason for Visit +---------+ + | Reason | Comments | +---------+ + | Fatigue | | +---------+ + Encounter Details +--------+ + + + + | Date | Type | Department | Care Team | Description | +--------+ + + + + | 10/13/ | Telephone | Pediatric | Tania Foster MD | Fatigue | | 2011 | | Gastroenterology at | [address] [facility] | | | | | [place] | [address] [place], | | | | | [facility] | [place] [address] | | | | | [address] [facility] | [phone] | | | | | Mailcode: [facility] | | | | | | [place] | | | | | | [place], [place] | | | | | | [address] | | | | | | [phone] | | | +--------+ + + + [...] Lab | Routin | Crohn's disease, | 11/03/2011 | | DIFFERENTIAL | | e | [...] use | | | | | | Fatigue | | + +------+--------+ + + | IRON AND TIBC, SERUM | Lab | Routin | Crohn's disease, | 11/03/2011 | | | | e | small [...] use | | | | | | Fatigue | | + +------+--------+ + + | FERRITIN, SERUM | Lab | Routin | Crohn's disease, | 11/03/2011 | | | | e | small [...] use | | | | | | Fatigue | | + +------+--------+ + + documented [...] of other medications | + + | Fatigue Other malaise and fatigue | + + documented in this encounter"
--- OUTSIDE RECORDS SUMMARY | ~2019-02-23 | XMS | Encounter Summary ---
Demographics + + + | Address | [address] | | | [place] [address] | + + + | Home Phone [...] + | Debora Resendiz | ECON | [address] | | | | | [place] | | | | | [address] | | + + + + + [...] Team Providers + +------+ + | Care Clerical Manager Name | Role | Phone | [...] | | | [place] | [address] [place], | | | | | [facility] | [place] [address] | | | | | [address] [facility] | [phone] | | | | | Mailcode: CDRCP | | | | | | [place] | | | | | | [place], [place] | | | | | | [address] | | | | | | [phone] | | | +--------+ + + + [...]
--- OUTSIDE RECORDS SUMMARY | ~2019-02-23 | XMS | Encounter Summary ---
Demographics + + + | Address | [address] | | | [place] [address] | + + + | Home Phone [...] + | Debora Resendiz | ECON | [address] | | | | | [place] | | | | | [address] | | + + + + + [...] Providers + +------+ + | Care Apartment Coordinator Name | Role | Phone | + +------+ + | Tracey Galeas MD | PCP | Unavailable | + +------+ + Reason for Visit + + + | Reason | Comments | + + + | Question | Katinaly Prep | + + + Encounter Details +--------+ + + + + | Date | Type | Department | Care Team | Description | +--------+ + + + + | 01/03/ | Telephone | Pediatric | Tania Foster MD | Question (Katinaly | | 2014 | | Gastroenterology at | [address] [facility] | Prep) | | | | [place] | [address] [place], | | | | | [facility] | [place] [address] | | | | | [address] | [phone] | | | | | Mailcode: [id number] | | | | | | [place] | | | | | | [place], [place] | | | | | | [address] | | | | | | [phone] | | | +--------+ + + + [...]
--- OUTSIDE RECORDS SUMMARY | ~2019-02-23 | XMS | Encounter Summary ---
Demographics + + + | Address | [address] | | | [place] [address] | + + + | Home Phone [...] + | Debora Resendiz | ECON | [address] | | | | | [place] | | | | | [address] | | + + + + + [...] Providers + +------+ + | Care Medical Aides Teacher Name | Role | Phone | [...] of | [address] | [address] | | | | | small | [address] | Dr | | | | | intestine | [place], [place] | Mailcode: | | | | | with large | [address] | DCH10C | | | | | intestine | | [place] | | | | | ([facility], [facility]) | | [place], [place] | | | | | Procedures | | [address] | | | | | [place] IRON | | Phone: | | | | | [place] | | [phone] | | | | | INJECTION, 1 | | Fax: | | | | | MG | | [phone] | +--------+--------+ + + + + Encounter Details +--------+---------+ + + + | Date | Type | Department | Care Team | Description | +--------+---------+ + + + | 05/03/ | Office | Hematology | Wil[place], | High risk | | 2012 | Visit | Oncology at [facility] [address] | [address] | medications (not | | | | [facility] [address] | [address] [place], | anticoagulants) | | | | Mailcode: DCH10 | [place] [address] | long-term use | | | | [place] | [phone] | (Primary Dx) | | | | [place], [place] | | | | | | [address] | | | | | | [phone] | | | +--------+---------+ + + + [...] Instructions Patient Instructions Sherron Guillen NP - 05/03/2012 12:33 PM PDTReturn for Remicade in 8 weeks. documented in this encounter Progress Notes Sherron Guillen NP - 05/03/2012 12:03 PM PDTFormatting of this note might be differe nt from the original. PEDIATRIC GASTROENTEROLOGY IBD FOLLOW-UP CONSULTATION Jeremias H Ough is an 16 y.o. male, who is referred by Tracey Galeas to Pediatric GI Cli vivi accompanied by his mother, for a scheduled Remicade infusion. Interval History: Jeremias has had cold symptoms for the last 2 weeks, no fever, he has been going to school b ut skipping [employer] practice. He is stuffy and has an occasional cough but otherwise doing well. His brother and other family members have been ill also. Jeremias Adames has the following medical problems: [...] steroids Current medicines include: Current Outpatient Prescriptions on File Prior to Visit Medication Sig Dispense Refill CALCIUM CARBONATE (CALCIUM 500 ORAL) Take by mouth. FOLIC ACID ORAL Take by mouth. inFLIXimab (REMICADE) 100 mg Intravenous Recon Soln Inject 5 mg/kg into the vein (IV) e very eight weeks. Indications: CROHN'S DISEASE mesalamine EC (ASACOL) 400 mg Oral Tablet, Delayed Release (E.C.) Take 3 Tabs by mouth two times daily. Indications: Crohn's Disease 186 Tab 4 multivitamin Oral capsule Take 1 Cap by mouth once daily. omeprazole (PRILOSEC) 20 mg Oral capsule,delayed release(DR/EC) Take 2 Caps by mouth on ce daily in the morning. 62 Cap 2 VIT B12/FA/PYRIDOXAL/B6/BETAIN (COBALAMINE COMBINATIONS ORAL) Take by mouth. Changes in Medications since we last saw patient? None Interval history update: Patient reports today that stools are 1/day and formed in consistency. Blood or mucus in the stool? no Urgency? no Abdominal pain? no Nausea? no. Vomiting? no. Energy level is low, he has a cold. Appetite is normal. New medical/surgical issues since last visit? cold ROS: Aphthous ulcers? no Any joint or eye pain? no Any cough or nasal discharge recently? Yes x almost 2 weeks Any known clotting disorder? no Any recent fever ? no Any skin problems or rash? no Has weight been stable? yes GI aspects of ROS noted in the Interval History section above. Cardiovascular: Negative Genitourinary:Negative Neurologic: Negative Social history: Lives with mother and father, brother and sister. Missing school? no Medication compliance estimate 100% Nutrition: Taking multivitamin? yes Calcium intake adequate? yes No Known Allergies Ht 172.7 cm (5' 7.99") (51 %ile), Wt 67.9 kg (149 lbs 11.1 oz) (76 %ile), Weight for age(%) 76.49%, BMI for age(%) 77.67%, Length for age(%) 50.89%, BP 128/62, Pulse 76, Temperatur e 36.8 C (98.2 F), Temperature source Oral, RR 16. (Taken on ThuMay 03, 2012 11:56 AM ) Examination: Appearance: alert, active and in no apparent distress. Skin: turgor normal, capillary refill brisk, no rashes, petechiae HEENT: normocephalic, PERRLA, sclera nonicteric, nose stuffy, mouth no aphthous lesions, mu cous membranes moist, pharynx unremarkable Neck: supple, without thyromegaly Chest: clear to auscultation bilaterally. Occasional moist cough. CV: regular rhythm, no murmurs. Abdomen: normal bowel sounds, soft, no distention, no tenderness to palpation, no rebound o r guarding, no fullness in the RLQ or palpable masses, no hepatosplenomegaly Musculoskeletal: grossly intact without clubbing or edema Neuro: normal gait and speech for age Nodes: no significant cervical or supraclavicular adenopathy Psychiatric- affect pleasant Patient reports a pain level of 0 today. _X__ No action required ___ See assessment and plan Lab results from last GI visit: Clinical System Validation Engineer on 05/03/2012 Component Date Value Range ALBUMIN, [...] BASO # (K/cu mm) 05/03/2012 0.0 0.0-0.2 Assessment & Plan : This [...] bowel disease The inflammatory bowel is under improved control. The following medications were changed: none Past studies reviewed with family/patient, and new studies ordered: CBC, liver set 2. Nutrition support: A. Our Crohn's patients would benefit from a DEXA every 2 years; this can be done during summer to avoid missing school. B. We recommend a multivitamin for patient, and calcium supplement 3. Health care maintenance: A. Vaccinations Family reminded of importance of getting a flu shot every fall. No live virus vaccinations such as the nasal flu mist, Varicella or MMR for our patients on immunosuppressives (such a s 6- mercaptopurine/imuran or TNF alpha blocking agents such as Infliximab/Humira). 4. Psychosocial or economic challenges affecting patient's medical care delivery: Recent u nemployment of father, significant illness of mother, academic struggles for Jeremias. Plan- the following was included in the patient's after visit summary: Return for Remicade in 8 weeks. SHERRON RODRÍGUEZ NP [facility] GASTROENTEROLOGY HEMATOLOGY ONCOLOGY [address] [place] [address] Mailcode: [address]ch[address] [place] [address] documented in t his encounter Plan of Treatment Not on filedocumented as of this encounter Visit Diagnoses + + | Diagnosis | + + | High risk medications (not anticoagulants) long-term use - Primary Encounter for | | long-term (current) use of other medications | + + documented in this encounter
--- OUTSIDE RECORDS SUMMARY | ~2019-02-23 | XMS | Encounter Summary ---
Demographics + + + | Address | [address] | | | [place] [address] | + + + | Home Phone [...] + | Debora Resendiz | ECON | [address] | | | | | [place] | | | | | [address] | | + + + + + [...] Providers + +------+ + | Care Building Maintenance Custodian Name | Role | Phone | + +------+ + | Tracey Galeas MD | PCP | Unavailable | + +------+ + Encounter Details +--------+ + + + + | Date | Type | Department | Care Team | Description | +--------+ + + + + | 09/23/ | Telephone | Pediatric | Tania Foster MD | | | 2012 | | Gastroenterology at | [address] | | | | | [place] | [address] [facility] | | | | | [facility] | [place] [address] | | | | | [address] | [phone] | | | | | Mailcode: [facility] | | | | | | [place] | | | | | | [place], [place] | | | | | | [address] | | | | | | [phone] | | | +--------+ + + + [...]
--- OUTSIDE RECORDS SUMMARY | ~2019-02-23 | XMS | Encounter Summary ---
Demographics + + + | Address | [address] | | | [place] [address] | + + + | Home Phone [...] + | Debora Resendiz | ECON | [address] | | | | | [place] | | | | | [address] | | + + + + + [...] Team Providers + +------+ + | Care Nip Wrapper Name | Role | Phone | + +------+ + | Tracey Galeas MD | PCP | Unavailable | + +------+ + Reason for Visit +--------+ + | Reason | Comments | +--------+ + | Other | Remicade at [facility] | +--------+ + Encounter Details +--------+ + + + + | Date | Type | Department | Care Team | Description | +--------+ + + + + | 08/19/ | Telephone | Pediatric | Tania Foster MD | Other (Remicade at | | 2012 | | Gastroenterology at | [address] [facility] | [facility]) | | | | [place]da | Herminia Yepez [place], | | | | | [facility] | [place] [address] | | | | | [address] | [phone] | | | | | Mailcode: CDRCP | | | | | | Griselda | | | | | | [place], [place] | | | | | | [address] | | | | | | [phone] | | | +--------+ + + + [...]
--- OUTSIDE RECORDS SUMMARY | ~2019-02-23 | XMS | Encounter Summary ---
Demographics + + + | Address | [address] | | | [place] [address] | + + + | Home Phone | | + + + | Preferred Language | Unknown | + + + | Marital Status | Single | + + + | Episcopal Affiliation | NON | + + + [...] + | Debora Resendiz | ECON | [address] | | | | | [place] | | | | | [address] | | + + + + + [...] Providers + +------+ + | Care Senior Center Director Name | Role | Phone | [...] | | | [place]da | Herminia Yepez [place], | | | | | [facility] | [place] [address] | | | | | [address] | [phone] | | | | | Mailcode: CDRCP | | | | | | Griselda | | | | | | [place], [place] | | | | | | [address] | | | | | | [phone] | | | +--------+ + + + [...]
--- OUTSIDE RECORDS SUMMARY | ~2019-02-23 | XMS | Encounter Summary ---
Demographics + + + | Address | [address] | | | [place] [address] | + + + | Home Phone [...] + | Debora Resendiz | ECON | [address] | | | | | [place] | | | | | [address] | | + + + + + [...] Team Providers + +------+ + | Care Banquet Steward Name | Role | Phone | [...] | | Gastroenterology at | [address] [facility] | discomfort around | | | | Griselda | [address] [place], | anus) | | | | [facility] | [place] [address] | | | | | [address] | [phone] | | | | | Mailcode: [facility] | | | | | | [place] | | | | | | [place], [place] | | | | | | [address] | | | | | | [phone] | | | +--------+ + + + [...]
--- OUTSIDE RECORDS SUMMARY | ~2019-02-23 | XMS | Encounter Summary ---
Demographics + + + | Address | [address] | | | [place] [address] | + + + | Home Phone | | + + + | Preferred Language | Unknown | + + + | Marital Status | Single | + + + | Worship Affiliation | NON | + + + [...] + | Debora Resendiz | ECON | [address] | | | | | [place] | | | | | [address] | | + + + + + [...] Team Providers + +------+ + | Care Business Support Coordinator Name | Role | Phone | + +------+ + | Tracey Galeas MD | PCP | Unavailable | + +------+ + Encounter Details +--------+ + + + + | Date | Type | Department | Care Team | Description | +--------+ + + + + | 09/25/ | Documentati | Vascular Access at | [place], | | | 2011 | on | [facility] [address] | Bridgette RN [address] | | | | | [address] | [address] | | | | | [facility] | [place], [place] | | | | | [place], [place] | [address] | | | | | [address] | | | | | | [phone] | | | +--------+ + + + [...]
--- OUTSIDE RECORDS SUMMARY | ~2019-02-23 | XMS | Encounter Summary ---
Demographics + + + | Address | [address] | | | [place] [address] | + + + | Home Phone [...] + | Debora Resendiz | ECON | [address] | | | | | [place] | | | | | [address] | | + + + + + | Qaung Resendiz | ECON | Unknown | | [...] Team Providers + +------+ + | Care Morgue Technician Name | Role | Phone | [...] on | Gastroenterology at | [address] [facility] | Request (Mark) | | | | [place]da | Herminia Yepez [place], | | | | | [facility] | [place] [address] | | | | | [address] | [phone] | | | | | Mailcode: CDR | | | | | | Griselda | | | | | | [place], [place] | | | | | | [address] | | | | | | [phone] | | | +--------+ + + + [...]
--- OUTSIDE RECORDS SUMMARY | ~2019-02-23 | XMS | Encounter Summary ---
Demographics + + + | Address | [address] | | | [place] [address] | + + + | Home Phone [...] + | Debora Resendiz | ECON | [address] | | | | | [place] | | | | | [address] | | + + + + + [...] Team Providers + +------+ + | Care Surgical Garment Assembly Supervisor Name | Role | Phone | + +------+ + | Tracey Galeas MD | PCP | Unavailable | + +------+ + Reason for Visit + + + | Reason | Comments | + + + | Telephone follow-up | | + + + Encounter Details +--------+ + + + + | Date | Type | Department | Care Team | Description | +--------+ + + + + | // | Telephone | Pediatric | Tania Foster MD | Telephone follow-up | | 2013 | | Gastroenterology at | [address] [facility] | | | | | [place] | Herminia Yepez [place], | | | | | [facility] | [place] [address] | | | | | [address] | [phone] | | | | | Mailcode: [facility] | | | | | | Griselda | | | | | | [place], [place] | | | | | | [address] | | | | | | [phone] | | | +--------+ + + + [...]
--- OUTSIDE RECORDS SUMMARY | ~2019-02-23 | XMS | Encounter Summary ---
Demographics + + + | Address | [address] | | | [place] [address] | + + + | Home Phone [...] + | Debora Resendiz | ECON | [address] | | | | | [place] | | | | | [address] | | + + + + + [...] Team Providers + +------+ + | Care Drawing In Hand Name | Role | Phone | [...] | | | [place] | Herminia Yepez [place], | | | | | [facility] | [place] [address] | | | | | [address] [facility] | [phone] | | | | | Mailcode: CDRSKYE | | | | | | [place]da | | | | | | [place], [place] | | | | | | [address] | | | | | | [phone] | | | +--------+ + + + [...]
--- OUTSIDE RECORDS SUMMARY | ~2019-02-23 | XMS | Encounter Summary ---
Demographics + + + | Address | [address] | | | [place] [address] | + + + | Home Phone [...] + | Debora Resendiz | ECON | [address] | | | | | [place] | | | | | [address] | | + + + + + [...] Team Providers + +------+ + | Care Tunnel Elastic Operator Chainstitch Name | Role | Phone | + [...] | | | | Staff | at [facility] | | | | | | [facility] | | | | | | [address] | | | | | | Mailcode: DCH10C | | | | | | [place]da | | | | | | [place], [place] | | | | | | [address] | | | | | | [phone] | | | +--------+ + + + [...] + + + + + | [facility] | [address] [facility] | [place] [address] | | | SERVICES, CORE | PARK [...] [facility] | [address] | [place] [address] | | | SERVICES, CORE | CRISTIAN [...]
--- OUTSIDE RECORDS SUMMARY | ~2019-02-23 | XMS | Encounter Summary ---
Demographics + + + | Address | [address] | | | [place] [address] | + + + | Home Phone [...] + | Debora Resendiz | ECON | [address] | | | | | [place] | | | | | [address] | | + + + + + [...] Team Providers + +------+ + | Care Check Examiner Name | Role | Phone | [...] 2011 | | Gastroenterology at | [address] [facility] | | | | | [place] | Herminia Yepez [place], | | | | | [facility] | [place] [address] | | | | | [address] | [phone] | | | | | Mailcode: CDR | | | | | | Griselda | | | | | | [place], [place] | | | | | | [address] | | | | | | [phone] | | | +--------+ + + + [...]
--- OUTSIDE RECORDS SUMMARY | ~2019-02-23 | XMS | Encounter Summary ---
Demographics + + + | Address | [address] | | | [place] [address] | + + + | Home Phone [...] + | Debora Resendiz | ECON | [address] | | | | | [place] | | | | | [address] | | + + + + + [...] Providers + +------+ + | Care Print Designer Name | Role | Phone | [...] at | [address] [facility] | | | | | [place] | Herminia [facility], | | | | | [facility] | [place] [address] | | | | | [address] | [phone] | | | | | Mailcode: [facility] | | | | | | [place]da | | | | | | [place], [place] | | | | | | [address] | | | | | | [phone] | | | +--------+ + + + [...]
--- OUTSIDE RECORDS SUMMARY | ~2019-02-23 | XMS | Encounter Summary ---
Demographics + + + | Address | [address] | | | [place] [address] | + + + | Home Phone | | + + + | Preferred Language | Unknown | + + + | Marital Status | Single | + + + | Latter-Day Affiliation | NON | + + + [...] + + + + + | Debora Rseendiz | ECON | [address] | | | | | [place] | | | | | [address] | | + + + + + [...] Team Providers + +------+ + | Care Record Changer Tester Name | Role | Phone | + +------+ + | Tracye Galeas MD | PCP | Unavailable | + +------+ + Encounter Details +--------+ + + + + | Date | Type | Department | Care Team | Description | +--------+ + + + + | 06/24/ | MyChart | Pediatric | Taina Foster MD | RE: Insurance | | 2011 | Encounter | Gastroenterology at | [address] | paperwork | | | | [place] | Herminia Yepez [facility] | | | | | [facility] | [place] [address] | | | | | [address] | [phone] | | | | | Mailcode: CDRCP | | | | | | Gr[place]da | | | | | | [place], [place] | | | | | | [address] | | | | | | [phone] | | | +--------+ + + + [...]
--- OUTSIDE RECORDS SUMMARY | ~2019-02-23 | XMS | Encounter Summary ---
Demographics + + + | Address | [address] | | | [place] [address] | + + + | Home Phone [...] + | Debora Resendiz | ECON | [address] | | | | | [place] | | | | | [address] | | + + + + + [...] Team Providers + +------+ + | Care Commanding Officer Homicide Squad Name | Role | Phone | + [...] | | Gastroenterology at | [address] [facility] | | | | | [place] | Herminia [facility], | | | | | [facility] | [place] [address] | | | | | [address] [facility] | [phone] | | | | | Mailcode: CDRSKYE | | | | | | Gr[place]da | | | | | | [place], [place] | | | | | | [address] | | | | | | [phone] | | | +--------+ + + + [...]
--- OUTSIDE RECORDS SUMMARY | ~2019-02-23 | XMS | Encounter Summary ---
Demographics + + + | Address | [address] | | | [place] [address] | + + + | Home Phone [...] + | Debora Resendiz | ECON | [address] | | | | | [place] | | | | | [address] | | + + + + + [...] Providers + +------+ + | Care Health And Safety Inspector Name | Role | Phone [...] | | | [place] | Herminia Yepez [place], | | | | | [facility] | [place] [address] | | | | | [address] | [phone] | | | | | Mailcode: CDRCP | | | | | | Griselda | | | | | | [place], [place] | | | | | | [address] | | | | | | [phone] | | | +--------+ + + + [...]
--- OUTSIDE RECORDS SUMMARY | ~2019-02-23 | XMS | Encounter Summary ---
Demographics + + + | Address | [address] | | | [place] [address] | + + + | Home Phone [...] + | Debora Resendiz | ECON | [address] | | | | | [place] | | | | | [address] | | + + + + + [...] Providers + +------+ + | Care Engineering Technical Writer Name | Role | Phone | + [...] | | | | | | [address] [facility] | | | | | | Mailcode: CDRCP | | | | | | [place] | | | | | | [place], [place] | | | | | | [address] | | | | | | [phone] | | | +--------+ + + + [...]
--- OUTSIDE RECORDS SUMMARY | ~2019-02-23 | XMS | Encounter Summary ---
Demographics + + + | Address | [address] | | | [place] [address] | + + + | Home Phone [...] + | Debora Resendiz | ECON | [address] | | | | | [place] | | | | | [address] | | + + + + + [...] Team Providers + +------+ + | Care Indoor Landscape Architect Name | Role | Phone | + +------+ + | Tracey Galeas MD | PCP | Unavailable | + +------+ + Encounter Details +--------+ + + + + | Date | Type | Department | Care Team | Description | +--------+ + + + + | 09/25/ | Documentati | Vascular Access at | [place], | | | 2011 | on | [facility] [address] | Bridgette RN [address] | | | | | [address] | [address] | | | | | [facility] | [place], [place] | | | | | [place], [place] | [address] | | | | | [address] | | | | | | [phone] | | | +--------+ + + + [...]
--- OUTSIDE RECORDS SUMMARY | ~2019-02-23 | XMS | Encounter Summary ---
Demographics + + + | Address | [address] | | | [place] [address] | + + + | Home Phone [...] + | Debora Resendiz | ECON | [address] | | | | | [place] | | | | | [address] | | + + + + + [...] Team Providers + +------+ + | Care Graduate Internship Name | Role | Phone | + [...] | [address] | [address] | | | | | small | [address] | Dr | | | | | intestine | Herminia Yepez | Mailcode: | | | | | with large | [place], [place] | DCH10C | | | | | intestine | [address] | [place] | | | | | (HCC) | Phone: | [place], [place] | | | | | Anorexia | [phone] | [address] | | | | | Pre-procedur | Fax: | Phone: | | | | | e Diagnoses | [phone] | [phone] | | | | | | | Fax: | | | | | Procedures | | [phone] | | | | | [place] | | | | | | | INFLIXIMAB | | | | | | | INJECTION, | | | | | | | 10 MG [place] | | | | | | | THR/PRPH/DX | | | | | | | IV INF,IN | | | | | | | [place] | | | | | | | [...] | 2011 | Visit | Oncology at [facility] [address] | [address] [facility] | medications (not | | | | [facility] [address] | Herminia Yepez [place], | anticoagulants) | | | | Mailcode: DCH10C | [place] [address] | long-term use | | | | [place] | [phone] | (Primary Dx) | | | | [place], [place] | | | | | | [address] | | | | | | [phone] | | | +--------+---------+ + + + [...] Insert 1 Suppository rectally once daily at [facility]. Indications: crohn mesalamine EC 400 mg [...] www:GastroKids.org and www.CCFA.org 4. Health care maintenance Yoke Presser exam every 2 years. Flu shot reminder: done Note: Immunosuppressed patients on Remicade, Humira, Cimzia, chronic steroids, methotrexate , imuran or 6-MP should not have live virus vaccinations , including the nasal flu mist, MMR or Varicella vaccination. 5. Next recommended follow-up in GI clinic: 6 weeks for Remicade LENARD GARCES GASTROENTEROLOGY HEMATOLOGY ONCOLOGY [facility] [address] [facility] Mailcode: Dch10c [place] [facility] [address] documented in t his encounter Plan of Treatment Not on filedocumented as of this encounter Visit Diagnoses + + | Diagnosis | + + | High risk medications (not anticoagulants) long-term use - Primary Encounter for | | long-term (current) use of other medications | + + documented in this encounter
--- OUTSIDE RECORDS SUMMARY | ~2019-02-23 | XMS | Encounter Summary ---
Demographics + + + | Address | [address] | | | [place] [address] | + + + | Home Phone [...] + | Debora Resendiz | ECON | [address] | | | | | [place] | | | | | [address] | | + + + + + [...] + +------+ + | Care Health And Wellness Coach Name | Role | Phone | + [...] | | | [place] | Herminia Yepez [place], | | | | | [facility] | [place] [address] | | | | | [address] | [phone] | | | | | Mailcode: CDRSKYE | | | | | | [place]da | | | | | | [place], [place] | | | | | | [address] | | | | | | [phone] | | | +--------+ + + + [...]
--- OUTSIDE RECORDS SUMMARY | ~2019-02-23 | XMS | Encounter Summary ---
Demographics + + + | Address | [address] | | | [place] [address] | + + + | Home Phone [...] + | Debora Resendiz | ECON | [address] | | | | | [place] | | | | | [address] | | + + + + + [...] Team Providers + +------+ + | Care Oxide Furnace Tender Name | Role | Phone | + [...] 2011 | Event | [place] | [address] [facility] | | | | | Children's | [facility] | | | | | [facility] | [place], [place] | | | | | Desk Once | [address] | | | | | admitted, go to the | [phone] | | | | | 8th floor Surgical | | | | | | Desk Located at the | | | | | | [place] [address] | | | | | | [address] [place], | | | | | | [place] [address] | | | +--------+ + + + [...]
--- OUTSIDE RECORDS SUMMARY | ~2019-02-23 | XMS | Encounter Summary ---
Demographics + + + | Address | [address] | | | [place] [address] | + + + | Home Phone [...] + | Debora Resendiz | ECON | [address] | | | | | [place] | | | | | [address] | | + + + + + [...] Team Providers + +------+ + | Care Printed Circuit Boards Router Name | Role | Phone | + [...] | | Gastroenterology at | [address] [facility] | (stomach cramping) | | | | [place] | Herminia Yepez [place], | | | | | [facility] | [place] [address] | | | | | [address] | [phone] | | | | | Mailcode: [facility] | | | | | | Griselda | | | | | | [place], [place] | | | | | | [address] | | | | | | [phone] | | | +--------+ + + + [...]
--- OUTSIDE RECORDS SUMMARY | ~2019-02-23 | XMS | Encounter Summary ---
Demographics + + + | Address | [address] | | | [place] [address] | + + + | Home Phone [...] + | Debora Resendiz | ECON | [address] | | | | | [place] | | | | | [address] | | + + + + + [...] Team Providers + +------+ + | Care Line Technician Name | Role | Phone | [...] | | 2011 | on | [facility] [address] | [address] | | | | | [address] | [address] [facility] | | | | | [facility] | [place], [place] | | | | | [place], [place] | [address] | | | | | [address] | | | | | | [phone] | | | +--------+ + + + [...]
--- OUTSIDE RECORDS SUMMARY | ~2019-02-23 | XMS | Encounter Summary ---
Demographics + + + | Address | [address] | | | [place] [address] | + + + | Home Phone [...] + | Debora Resendiz | ECON | [address] | | | | | [place] | | | | | [address] | | + + + + + [...] Team Providers + +------+ + | Care Lien Searcher Name | Role | Phone | + [...] | Diarrhea | Tracey Chiu MD | [facility] [address] | | | Required | ogy | Abnormal | [place] [address] | | | | | weight gain | PERMANENTE | Mailcode: | | | | | Anemia, | [place] | CDRCP | | | | | unspecified | [address] | [address] | | | | | | [address] | [place], [place] | | | | | | [address] | [address] | | | | | | [facility] Phone: | | | | | | [place] [address] | [phone] | | | | | | | Fax: | | | | | | | [phone] | +--------+ + + + + + Encounter Details +--------+---------+ + + + | Date | Type | Department | Care Team | Description | +--------+---------+ + + + | 02/04/ | Office | Pediatric | Tania Foster MD | Weight loss; | | 2010 | Visit | Gastroenterology at | [address] [facility] | Diarrhea; Heartburn; | | | | [address] [place], | Anemia; Abdominal | | | | [facility] | [place] [address] | pain, acute, right | | | | [address] | [phone] | upper quadrant; | | | | Mailcode: [facility] | | Nausea | | | | [place] | | | | | | [place], [place] | | | | | | [address] | | | | | | [phone] | | | +--------+---------+ + + + [...] call. MD FRANCO CR GASTROENTEROLOGY [address] [facility] Mailcode: [facility] [place] [address] documented in this enco unter Plan of [...]
--- OUTSIDE RECORDS SUMMARY | ~2019-02-23 | XMS | Encounter Summary ---
Demographics + + + | Address | [address] | | | [place] [address] | + + + | Home Phone [...] + | Debora Resendiz | ECON | [address] | | | | | [place] | | | | | [address] | | + + + + + [...] Team Providers + +------+ + | Care Gas Scrubber Operator Name | Role | Phone | [...] of | [address] | [address] | | | | | small | Manav Yepez | Dr | | | | | intestine | [place], [place] | Mailcode: | | | | | with large | [address] | DCH10C | | | | | intestine | | [place] | | | | | ([facility]) | | [place], [place] | | | | | Procedures | | [address] | | | | | [address] [place] | | Phone: | | | | | [place]CR[place] | | [phone] | | | | | INJECTION, 1 | | Fax: | | | | | MG | | [phone] | +--------+--------+ + + + + Encounter Details +--------+---------+ + + + | Date | Type | Department | Care Team | Description | +--------+---------+ + + + | 05/03/ | Office | Hematology | Wilmer, | High risk | | 2012 | Visit | Oncology at [facility] [address] | [address] | medications (not | | | | [facility] [address] | [address] [place], | anticoagulants) | | | | Mailcode: DCH10 | [place] [address] | long-term use | | | | [place] | [phone] | (Primary Dx) | | | | [place], [place] | | | | | | [address] | | | | | | [phone] | | | +--------+---------+ + + + [...] Lab results from last GI visit: Clinical Screw Driver Operator on 05/03/2012 Component Date Value Range ALBUMIN, [...] in 8 weeks. SHERRON RODRÍGUEZ NP [facility] GASTROENTEROLOGY HEMATOLOGY ONCOLOGY [address] [place] [address] Mailcode: Dch10c [place] [address] documented in t his encounter Plan of Treatment Not on filedocumented as of this encounter Visit Diagnoses + + | Diagnosis | + + | High risk medications (not anticoagulants) long-term use - Primary Encounter for | | long-term (current) use of other medications | + + documented in this encounter
--- OUTSIDE RECORDS SUMMARY | ~2019-02-23 | XMS | Encounter Summary ---
Demographics + + + | Address | [address] | | | [place] [address] | + + + | Home Phone [...] + | Debora Resendiz | ECON | [address] | | | | | [place] | | | | | [address] | | + + + + + [...] Team Providers + +------+ + | Care Operations Team Leader Name | Role | Phone | + [...] | | | | Staff | at [facility] | | | | | | [facility] | | | | | | [address] | | | | | | Mailcode: DCH10C | | | | | | [place] | | | | | | [place], [place] | | | | | | [address] | | | | | | [phone] | | | +--------+ + + + [...] DEPARTMENT OF | [address] | [place] [address] | | | PATHOLOGY | [address] [...] | + + + + + | [facility] | [address] | [place] [address] | | | PATHOLOGY | [address] [...] | + + + + + | [facility] | [address] | [place] [address] | | | PATHOLOGY | [address] [...]
--- OUTSIDE RECORDS SUMMARY | ~2019-02-23 | XMS | Encounter Summary ---
Demographics + + + | Address | [address] | | | [place] [address] | + + + | Home Phone [...] + | Debora Resendiz | ECON | [address] | | | | | [place] | | | | | [address] | | + + + + + [...] Team Providers + +------+ + | Care Boat Crew Deck Hand Name | Role | Phone | [...] | +--------+ + + + + | 11/10/ | Telephone | Pediatric | Tania Foster MD | Crohn's disease | | 2013 | | Gastroenterology at | [address] [facility] [address] | | | | | [place] | Herminia Yepez [place], | | | | | [facility] | [place] [address] | | | | | [address] [facility] | [phone] | | | | | Mailcode: CDRCP | | | | | | [place] | | | | | | [place], [place] | | | | | | [address] | | | | | | [phone] | | | +--------+ + + + [...]
--- OUTSIDE RECORDS SUMMARY | ~2019-02-23 | XMS | Encounter Summary ---
Demographics + + + | Address | [address] | | | [place] [address] | + + + | Home Phone [...] + | Debora Resendiz | ECON | [address] | | | | | [place] | | | | | [address] | | + + + + + [...] Team Providers + +------+ + | Care Water Main Installer Helper Name | Role | Phone | [...] | | | Griselda | Herminia Yepez [place], | | | | | [facility] | [place] [address] | | | | | [address] | [phone] | | | | | Mailcode: CDRCP | | | | | | Griselda | | | | | | [place], [place] | | | | | | [address] | | | | | | [phone] | | | +--------+ + + + [...]
--- OUTSIDE RECORDS SUMMARY | ~2019-02-23 | XMS | Encounter Summary ---
Demographics + + + | Address | [address] | | | [place] [address] | + + + | Home Phone [...] + | Debora Resendiz | ECON | [address] | | | | | [place] | | | | | [address] | | + + + + + [...] Team Providers + +------+ + | Care Inner Tube Inserter Name | Role | Phone | + [...] 2013 | | Gastroenterology at | [address] [facility] | | | | | Griselda | Herminia Yepez [place], | | | | | [facility] | [place] [address] | | | | | [address] | [phone] | | | | | Mailcode: [facility] | | | | | | Griselda | | | | | | [place], [place] | | | | | | [address] | | | | | | [phone] | | | +--------+ + + + [...]
--- OUTSIDE RECORDS SUMMARY | ~2019-02-23 | XMS | Encounter Summary ---
Demographics + + + | Address | [address] | | | [place] [address] | + + + | Home Phone [...] + | Debora Resendiz | ECON | [address] | | | | | [place] | | | | | [address] | | + + + + + [...] Team Providers + +------+ + | Care Trauma Surgeon Name | Role | Phone | + [...] SENT | | | | Children's | [place], | TO PATHOLOGY | | | | [facility] | [place] [address] | SPECIMEN X 2 SENT TO | | | | Desk Once | [phone] | [facility] | | | | admitted, go to the | | | | | | 8th floor Surgical | | | | | | Desk Located at the | | | | | | [place] [address] | | | | | | [address] [place], | | | | | | [place] [address] | | | +--------+---------+ + + + [...] ities tomorrow. Call the Pediatric GI provider dehydration unit operator for urgent matters If you see any of these signs, call the GI office at [phone] (option 3) during regular business hours, or the GI provider dehydration unit operator after hours for the following: Increased [...] take usual medicines unless told otherwise by [facility] doctor. How to Reach Your GI Provider: Mon-Fri from 8:00-4:30, call GI Office at [phone]. After hours, weekends, & holidays, call [place] [facility] Electric System Operator at [phone]; ask to edwards ve the Pediatric GI provider dehydration unit operator paged for urgent patient issues as described above. Results: Biopsy results may take 10 days to come back; we will contact you when we receive the res ults. Assure that our check-in desk has your contact numbers. Please sign up for Transcepta in order to receive results faster, if [...] | + +--------+ + + + | CA COLONOSCOPY, | Routin | 01/04/2014 | | Results for this | | FLEX, W/BIOPSY | e | 9:18 AM | | procedure are in the | | | | PST | | results section. | + +--------+ + + + | CA UPPER GI | Routin | 01/04/2014 | [...] | + + + + + | [facility] - | [address] | [place] [address] | | | [facility] | | | | + + + [...] by: [facility] | | | Diagnostics [place] [employer] [address] | | | [place] [address] | | | | | + + + + + + + + | Performing | Address | City/State/Zipcode | Phone Number | | Organization | | | | + + + + + | [facility] | | | | + + + + + | [facility] | see below | | | + + + + + CA UPPER GI ENDOSCOPY,BIOPSY (01/04/2014 9:18 AM [facility])CA COLONOSCOPY, FLEX, W/BIOPSY (01/04 9:18 AM [facility])SURGICAL PATHOLOGY (01/04/2014) + + + + + [...] A | | | | | | in store representative block | | | | | [...] necessary | | | | | | [facility] | | | | | | [...] + + + | [facility] | [address] | [place] [address] | | | PATHOLOGY | [address] | | | + + + + + documented in this encounter Visit Diagnoses + + | Diagnosis | + + | Regional enteritis of small intestine with large intestine, without complications | + + documented in this encounter
--- OUTSIDE RECORDS SUMMARY | ~2019-02-23 | XMS | Encounter Summary ---
Demographics + + + | Address | [address] | | | [place] [address] | + + + | Home Phone [...] + | Debora Resendiz | ECON | [address] | | | | | [place] | | | | | [address] | | + + + + + [...] Team Providers + +------+ + | Care Bonderite Operator Name | Role | Phone | [...] | | Gastroenterology at | [address] [facility] | | | | | Griselda | Herminia Yepez [place], | | | | | [facility] | [place] [address] | | | | | [address] [facility] | [phone] | | | | | Mailcode: [facility] | | | | | | Griselda | | | | | | [place], [place] | | | | | | [address] | | | | | | [phone] | | | +--------+ + + + [...]
--- OUTSIDE RECORDS SUMMARY | ~2019-02-23 | XMS | Encounter Summary ---
Demographics + + + | Address | [address] | | | [place] [address] | + + + | Home Phone [...] + | Debora Resendiz | ECON | [address] | | | | | [place] | | | | | [address] | | + + + + + [...] Team Providers + +------+ + | Care Tube Man Name | Role | Phone | [...] 2013 | | Gastroenterology at | [address] [facility] | | | | | Griselda | Herminia Yepez [place], | | | | | [facility] | [place] [address] | | | | | [address] [facility] | [phone] | | | | | Mailcode: SUKUMAR | | | | | | Griselda | | | | | | [place], [place] | | | | | | [address] | | | | | | [phone] | | | +--------+ + + + [...]
--- OUTSIDE RECORDS SUMMARY | ~2019-02-23 | XMS | Encounter Summary ---
Demographics + + + | Address | [address] | | | [place] [address] | + + + | Home Phone [...] + | Debora Resendiz | ECON | [address] | | | | | [place] | | | | | [address] | | + + + + + [...] Team Providers + +------+ + | Care Scrap Cutter Name | Role | Phone | [...] | | | Griselda | Herminia Yepez [place], | | | | | [facility] | [place] [address] | | | | | [address] [facility] | [phone] | | | | | Mailcode: SUKUMAR | | | | | | Griselda | | | | | | [place], [place] | | | | | | [address] | | | | | | [phone] | | | +--------+ + + + [...]
--- OUTSIDE RECORDS SUMMARY | ~2019-02-23 | XMS | Encounter Summary ---
Demographics + + + | Address | [address] | | | [place] [address] | + + + | Home Phone [...] + | Debora Resendiz | ECON | [address] | | | | | [place] | | | | | [address] | | + + + + + [...] Team Providers + +------+ + | Care Core Inserter Name | Role | Phone | [...] 2010 | | Gastroenterology at | [address] [facility] | Clarification) | | | | Griselda | Herminia Yepez [place], | | | | | [facility] | [place] [address] | | | | | [address] | [phone] | | | | | Mailcode: [facility] | | | | | | Griselda | | | | | | [place], [place] | | | | | | [address] | | | | | | [phone] | | | +--------+ + + + [...]
--- OUTSIDE RECORDS SUMMARY | ~2019-02-23 | XMS | Encounter Summary ---
Demographics + + + | Address | [address] | | | [place] [address] | + + + | Home Phone [...] + | Debora Resendiz | ECON | [address] | | | | | [place] | | | | | [address] | | + + + + + [...] Team Providers + +------+ + | Care Organic Chemistry Teacher Name | Role | Phone | [...] and large | | | | at [facility] | | intestine with | | | | [facility] | | granuloma in the | | | | [address] | | colon, severe | | | | Mailcode: DCH10C | | duodenitis (Primary | | | | [place] | | Dx); Encounter for | | | | [place], [place] | | therapeutic drug | | | | [address] | | monitoring | | | | [phone] | | | +--------+---------+ + + + [...] | + + + + + | [facility] | [address] [facility] | [place] [address] | | | PATHOLOGY | [address] [...] DEPARTMENT OF | [address] | [place] [address] | | | PATHOLOGY | [address] [...] | + + + + + | [facility] | [address] | [place] [address] | | | PATHOLOGY | [address] [...]
--- OUTSIDE RECORDS SUMMARY | ~2019-02-23 | XMS | Clinical Summary ---
Demographics + + + | Address | [address] | | | [place] [address] | + + + | Home Phone | | + + + | Preferred Language | Unknown | + + + | Marital Status | Single | + + + | Jew Affiliation | Unknown | + + + | Race | Unknown | + + + | Ethnic Group | Unknown | + + + Author + + + | Author | [facility] (Historical as of | | | 10-09-18) | + + + | Organization | [facility] (Historical as of | | | 10-09-18) [...] Team Providers + +------+ + | Care Buckle Assembler Name | Role | Phone | [...] +------+-------+ + | PREMERA | PREMER | [id number] | | | [address] [address] | | | A BLUE | 0 | | | [place], [place] | | | CARD | | | | [address] | +---------+--------+ +------+-------+ + + +--------+ +--------+ [...] | | | rahel | | | [address] | [place] [address] | + +--------+ +--------+ + +"
--- OUTSIDE RECORDS SUMMARY | ~2019-02-23 | XMS | Encounter Summary ---
Demographics + + + | Address | [address] | | | [place] [address] | + + + | Home Phone [...] + | Debora Resendiz | ECON | [address] | | | | | [place] | | | | | [address] | | + + + + + [...] Team Providers + +------+ + | Care Recreation Adviser Name | Role | Phone | [...] Gastroenterology at | [address] | Prep Instructions) | | | | Griselda | Herminia Yepez [place], | | | | | [facility] | [place] [address] | | | | | [address] | [phone] | | | | | Mailcode: [facility] | | | | | | Griselda | | | | | | [place], [place] | | | | | | [address] | | | | | | [phone] | | | +--------+ + + + [...]
--- OUTSIDE RECORDS SUMMARY | ~2019-02-23 | XMS | Encounter Summary ---
Demographics + + + | Address | [address] | | | [place] [address] | + + + | Home Phone [...] + | Debora Resendiz | ECON | [address] | | | | | [place] | | | | | [address] | | + + + + + [...] Providers + +------+ + | Care Gold And Silver Assayer Name | Role | Phone | + [...] | | | Griselda | Herminia Yepez [place], | (asacol) | | | | [facility] | [place] [address] | | | | | [address] | [phone] | | | | | Mailcode: SUKUMAR | | | | | | Griselda | | | | | | [place], [place] | | | | | | [address] | | | | | | [phone] | | | +--------+ + + + [...]
--- OUTSIDE RECORDS SUMMARY | ~2019-02-23 | XMS | Encounter Summary ---
Demographics + + + | Address | [address] | | | [place] [address] | + + + | Home Phone [...] + | Debora Resendiz | ECON | [address] | | | | | [place] | | | | | [address] | | + + + + + [...] Team Providers + +------+ + | Care Funnel Setter Name | Role | Phone | [...] | | Gastroenterology at | [address] [facility] | (orders for stool | | | | Griselda | Herminia Yepez [place], | studies) | | | | [facility] | [place] [address] | | | | | [address] | [phone] | | | | | Mailcode: CDRCP | | | | | | Griselda | | | | | | [place], [place] | | | | | | [address] | | | | | | [phone] | | | +--------+ + + + [...]
--- OUTSIDE RECORDS SUMMARY | ~2019-02-23 | XMS | Encounter Summary ---
Demographics + + + | Address | [address] | | | [place] [address] | + + + | Home Phone [...] + | Debora Resendiz | ECON | [address] | | | | | [place] | | | | | [address] | | + + + + + [...] Team Providers + +------+ + | Care Dice Manager Name | Role | Phone | [...] at | [address] | (Fengvalley ford) | | | | Griselda | Herminia Yepez [place], | | | | | [facility] | [place] [address] | | | | | [address] | [phone] | | | | | Mailcode: CDR | | | | | | Griselda | | | | | | [place], [place] | | | | | | [address] | | | | | | [phone] | | | +--------+--------+ + + + [...]
--- OUTSIDE RECORDS SUMMARY | ~2019-02-23 | XMS | Encounter Summary ---
Demographics + + + | Address | [address] | | | [place] [address] | + + + | Home Phone [...] + | Debora Resendiz | ECON | [address] | | | | | [place] | | | | | [address] | | + + + + + [...] Team Providers + +------+ + | Care Receiving Weigher Name | Role | Phone | + [...] | | | Griselda | Herminia Yepez [place], | | | | | [facility] | [place] [address] | | | | | [address] | [phone] | | | | | Mailcode: CDRCP | | | | | | Griselda | | | | | | [place], [place] | | | | | | [address] | | | | | | [phone] | | | +--------+ + + + [...]
--- OUTSIDE RECORDS SUMMARY | ~2019-02-23 | XMS | Encounter Summary ---
Demographics + + + | Address | [address] | | | [place] [address] | + + + | Home Phone [...] + | Debora Resendiz | ECON | [address] | | | | | [place] | | | | | [address] | | + + + + + [...] Team Providers + +------+ + | Care Sharepoint Manager Name | Role | Phone | [...] [address] [facility] | | | | | Griselda | Herminia [facility], | | | | | [facility] | [place] [address] | | | | | [address] | [phone] | | | | | Mailcode: [facility] | | | | | | Griselda | | | | | | [place], [place] | | | | | | [address] | | | | | | [phone] | | | +--------+ + + + [...]
--- OUTSIDE RECORDS SUMMARY | ~2019-02-23 | XMS | Encounter Summary ---
Demographics + + + | Address | [address] | | | [place] [address] | + + + | Home Phone [...] + | Debora Resendiz | ECON | [address] | | | | | [place] | | | | | [address] | | + + + + + [...] Team Providers + +------+ + | Care Auditing Manager Name | Role | Phone | [...] | Encounter | Gastroenterology at | [address] [facility] | recommendation | | | | [place] | Herminia Yepez [place], | | | | | [facility] | [place] [address] | | | | | [address] | [phone] | | | | | Mailcode: CDRCP | | | | | | Griselda | | | | | | [place], [place] | | | | | | [address] | | | | | | [phone] | | | +--------+ + + + [...]
--- OUTSIDE RECORDS SUMMARY | ~2019-02-23 | XMS | Encounter Summary ---
Demographics + + + | Address | [address] | | | [place] [address] | + + + | Home Phone [...] + | Debora Resendiz | ECON | [address] | | | | | [place] | | | | | [address] | | + + + + + [...] Team Providers + +------+ + | Care Remedial Project Manager Name | Role | Phone | [...] | Event | [place]da | MD [place] [address] | | | | | Children's | [address] | | | | | [facility] Admitting | [place], [place] | | | | | Desk Once | [address] | | | | | admitted, go to the | [phone] | | | | | 8th floor Surgical | | | | | | Desk Located at the | [address], | | | | | [place] [address] | [address] | | | | | [address] [place], | [address] | | | | | [place] [address] | [place], [place] | | | | | | [address] | | | | | | [phone] | | | | | | | [...] None; | Jessi Uriarte RN | Trisha [place], RN | | Periph | No; Positive; [...]
--- OUTSIDE RECORDS SUMMARY | ~2019-02-23 | XMS | Encounter Summary ---
Demographics + + + | Address | [address] | | | [place] [address] | + + + | Home Phone [...] + | Debora Resendiz | ECON | [address] | | | | | [place] | | | | | [address] | | + + + + + [...] Team Providers + +------+ + | Care Vp Mobile Products Name | Role | Phone | + +------+ + | Tracey Galeas MD | PCP | Unavailable | + +------+ + Encounter Details +--------+------+ + + + | Date | Type | Department | Care Team | Description | +--------+------+ + + + | 11/17/ | Lab | [facility] at [facility] | | Crohn's disease, | | 2013 | | 7th Floor [address] | | small and large | | | | [address] [place], | | intestine, | | | | [place] [address] | | unspecified | | | | [phone] | | complication (HCC) | +--------+------+ + [...] [facility] | [address] | [place] [address] | | | [address] | [address]RISTIAN [...] [facility] | [address] | [place] [address] | | | SERVICES, CORE | [address] [...] + + + + + | [facility] | [address] | [place] [address] | | | SERVICES, CORE | [address]RISTIAN [...] [facility] | [address] | [place] [address] | | | SERVICES, SPECIAL | [address] [...] [facility] | [address] | [place] [address] | | | SERVICES, SPECIAL | [address] [...] [facility] | [address] | [place] [address] | | | SERVICES, CORE | PARK [...] | + + + + + | [facility] | [address] | [place] [address] | | | SERVICES, CORE | [address] | | | + + + + + documented in this encounter Visit Diagnoses + + | Diagnosis | + + | Crohn's disease, small and large intestine, unspecified complication | + + documented in this encounter"
--- OUTSIDE RECORDS SUMMARY | ~2019-02-23 | XMS | Encounter Summary ---
Demographics + + + | Address | [address] | | | [place] [address] | + + + | Home Phone [...] + | Debora Resendiz | ECON | [address] | | | | | [place] | | | | | [address] | | + + + + + [...] Team Providers + +------+ + | Care Wrap Turner Name | Role | Phone | + [...] [facility] | | | | | Griselda | Herminia [facility], | | | | | [facility] | [place] [address] | | | | | [address] | [phone] | | | | | Mailcode: [facility] | | | | | | Griselda | | | | | | [place], [place] | | | | | | [address] | | | | | | [phone] | | | +--------+ + + + [...]
--- OUTSIDE RECORDS SUMMARY | ~2019-02-23 | XMS | Encounter Summary ---
Demographics + + + | Address | [address] | | | [place] [address] | + + + | Home Phone [...] + | Debora Resendiz | ECON | [address] | | | | | [place] | | | | | [address] | | + + + + + [...] Team Providers + +------+ + | Care Software Client Architect Name | Role | Phone | [...] + + + + | 01/29/ | Hospital | [facility] [address] | Tania Foster MD | | | 2012 | Encounter | [address] | [address] | | | | | [id number] | [facility] | | | | | [place] | [place] [address] | | | | | [facility] | [phone] | | | | | [place], [place] [facility] | | | | | | [phone] | | | +--------+ + + + [...] take usual medicines unless told otherwise by [facility] doctor. How to Reach Your Doctor: Mon-Fri from 8:00-4:30, call GI Clinic at [phone] After hours, weekends, and holidays, call Hospital Mosquito Sprayer at [phone]. Ask to have your doctor paged. Return [...] + | [facility] - | [address] | [place] [address] | | | [place] | | | | + + + [...] | [facility] | [address] | [place] [address] | | | PATHOLOGY | [address] | | | + + + + + documented in this encounter Visit Diagnoses Not on filedocumented in this encounter"
--- OUTSIDE RECORDS SUMMARY | ~2019-02-23 | XMS | Encounter Summary ---
Demographics + + + | Address | [address] | | | [place] [address] | + + + | Home Phone [...] + | Debora Resendiz | ECON | [address] | | | | | [place] | | | | | [address] | | + + + + + [...] Providers + +------+ + | Care Hand Buffer Name | Role | Phone | + [...] + + + + | 10/18/ | Supply Manager | Pediatric | Tania Foster MD | Crohn's disease, | | 2012 | | Gastroenterology at | [address] [facility] | small and large | | | | [place] | [address] [place], | intestine with | | | | [facility] | [place] [address] | granuloma in the | | | | [address] | [phone] | colon, severe | | | | Mailcode: CDRCP | | duodenitis (Primary | | | | [place] | | Dx); High risk | | | | [place], [place] | | medications (not | | | | [address] | | anticoagulants) | | | | [phone] | | long-term use | +--------+ + [...] | + + + + + | [id number] - | [address] | [place] [address] | | | REVERE | | | | + + + [...]
--- OUTSIDE RECORDS SUMMARY | ~2019-02-23 | XMS | Encounter Summary ---
Demographics + + + | Address | [address] | | | [place] [address] | + + + | Home Phone [...] + | Debora Resendiz | ECON | [address] | | | | | [place] | | | | | [address] | | + + + + + [...] Team Providers + +------+ + | Care Lease Picker Name | Role | Phone | [...] + + + + | 06/28/ | Clinical | Pediatric | | Infusion (Remicade) | | 2012 | Support | Hematology Oncology | | | | | Staff | at [facility] | | | | | | [facility] | | | | | | [address] | | | | | | Mailcode: [id number] | | | | | | Griselda | | | | | | [place], [place] | | | | | | [address] | | | | | | [phone] | | | +--------+ + + + [...] + | Blood Pressure | 124/77 | 06/28/2012 12:50 PM | | | | | PDT | | + + + + + | Pulse | 71 | 06/28/2012 12:50 PM | | | | | PDT | | + + + + + | Temperature | 36.6 C (97.9 F) | 06/28/2012 12:50 PM | | | | | PDT | | + + + + + | Respiratory Rate | 18 | 06/28/2012 9:10 AM | | | | | PDT | | + + + + + | Oxygen Saturation | - | - | | + + + + + | Inhaled Oxygen | - | - | | | Concentration | | | | + + + + + | Weight | 68.6 kg (151 lb 3.8 | 06/28/2012 9:10 AM | | | | oz) | PDT | | + + + + + | Height | 173.7 cm (5' 8.39") | 06/28/2012 9:10 AM | | | | | PDT | | + + + + + | Body Mass Index | 22.74 | 06/28/2012 9:10 AM | | | | | PDT | | + + + + + documented in this encounter Progress Notes Nathalie Arzate RN - 06/28/2012 11:52 AM Day came to [facility] today for IV Remicade. A PIV [...] in this encou nter Plan of Treatment + + +--------+ + + | Name | Type | Priori | Associated Diagnoses | Order Schedule | | | | ty | | | + + +--------+ + + | PERIPHERAL IV | Procedures | Routin | Crohn's disease, | Ordered: 06/28/2012 | | PLACEMENT/START (NO | | e | small and large | | | CHARGE) - BACK | | | intestine with | | | OFFICE | | | granuloma in the | [...] CBC AND AUTO DIFF | Routin | 06/28/2012 | High risk | Results for this | | | e | 9:37 AM | medications (not | procedure are in the | | | | PDT | anticoagulants) | results [...] + | CBC, WITH | Routin | 06/28/2012 | High risk | Results for this | | DIFFERENTIAL | e | 9:37 AM | medications (not | procedure are in the | | | | PDT | anticoagulants) | results [...] + | LIVER SET | Routin | 06/28/2012 | High risk | Results for this | | (AST,ALT,BILI | e | 9:37 AM | medications (not | procedure are [...] this encounter Results CBC AND AUTO DIFF (06/28/2012 9:37 AM PDT) + + + + + + | Component | Value | Ref Range | Performed | Pathologist | | | | | At | Signature | + + + + + + | WBC COUNT | 5.2 | 4.9 - 15.5 K/cu | [facility] | | | | | mm | LABORATORY | | | | | | SERVICES, | | | | | | CORE | | + + + + + + | RED CELL | 5.31 (H) | 4.50 - 5.30 | [facility] | | | COUNT | | M/cu mm | LABORATORY | | | | | | SERVICES, | | | | | | CORE | | + + + + + + | HEMOGLOBIN | 12.8 (L) | 13.0 - 16.0 | [facility] | | | | | g/dL | LABORATORY | | | | | | SERVICES, | | | | | | CORE | | + + + + + + | HEMATOCRIT | 40.0 | 37.0 - 49.0 % | [facility] | | | | | | LABORATORY | | | | | | SERVICES, | | | | | | CORE | | + + + + + + | MCV | 75.4 (L) | 80.0 - 96.0 fL | [...] + + + + | RDW | 16.3 (H) | 11.5 - 15.0 % | [facility] | | | | | | LABORATORY | | | | | | SERVICES, | | | | | | CORE | | + + + + + + | PLATELET | 188 | 150 - 400 K/cu | [facility] | | | COUNT | | mm | LABORATORY | | | | | | SERVICES, | | | | | | CORE | | + + + + + + | NEUTROPHIL | 53 | 41 - 76 % | [facility] | | | % | | | LABORATORY | | | | | | SERVICES, | | | | | | CORE | | + + + + + + | LYMPHOCYTE | 32 | 7 - 41 % | [facility] [...] + + + + | NEUTROPHIL | 2.8 | 2.8 - 11.1 K/cu | [facility] | | | # | | mm | LABORATORY | | | | | | SERVICES, | | | | | | CORE | | + + + + + + | LYMPHOCYTE | 1.7 [...] | + + + + + | [facility] | [address] [facility] [facility] | [place] [address] | | | SERVICES, CORE | [address] | | | + + + + + LIVER SET (AST,ALT,BILI TOTAL,BILI DIRECT,ALK PHOS,ALB,PROT TOTAL) (06/28/2012 9:37 AM PDT ) + +---------+ + + + | Component | Value | Ref Range | Performed | Pathologist | | | | | At | Signature | + +---------+ + + + | ALBUMIN, | 3.9 [...] + + + | ALK PHOS | 189 | 55 - 220 U/L | [facility] | | | | | | LABORATORY | | | | | | SERVICES, | | | | | | CORE | | + +---------+ + + + | AST(SGOT) | 17 [...] +---------+ + + + | TOTAL | 6.8 | 6.2 - 8.5 g/dL | [facility] | | | PROTEIN, [...] [facility] | [address] | [place] [address] | | | SERVICES, CORE | P[address] [...] | acetaminophen (aka TYLENOL) | Given | 06/29/19 | 650 mg | | | | tablet 650 mg 650 mg, oral, | | 13 9:45 | | | | | ONCE, 1 dose, Thu06/28/12 at 1015 | | AM PDT | | | | + +--------+ +--------+------+------+ +---+---+ | | | +---+---+ + +---------+ +--------+--------+---+ | inFLIXimab (aka REMICADE) IV | New Bag | 06/29/19 | 400 mg | mL/hr | | | 400 mg 400 mg, intravenous, | | 13 10:17 | | | | | ONCE, 1 dose, Thu06/28/12 at 1015 | | AM PDT | | | | + +---------+ +--------+--------+---+ +---+---+ | | | +---+---+ + +-------+ +-------+---+---+ | loratadine (aka CLARITIN) | Given | 06/29/19 | 10 mg | | | | tablet 10 mg 10 mg, oral, ONCE, | | 13 9:45 | | | | | 1 dose, 06/28/12 at 1015 | | AM PDT | | | | + +-------+ +-------+---+---+ +---+---+ | | | +---+---+ documented in this encounter
--- OUTSIDE RECORDS SUMMARY | ~2019-02-23 | XMS | Encounter Summary ---
Demographics + + + | Address | [address] | | | [place] [address] | + + + | Home Phone [...] + | Debora Resendiz | ECON | [address] | | | | | [place] | | | | | [address] | | + + + + + [...] Providers + +------+ + | Care Sales Route Driver Helper Name | Role | Phone | [...] | | Gastroenterology at | [address] [facility] | order, stomach pain) | | | | Griselda | Herminia Yepez [place], | | | | | [facility] | [place] [address] | | | | | [address] | [phone] | | | | | Mailcode: CDRCP | | | | | | Griselda | | | | | | [place], [place] | | | | | | [address] | | | | | | [phone] | | | +--------+ + + + [...]
--- OUTSIDE RECORDS SUMMARY | ~2019-02-23 | XMS | Encounter Summary ---
Demographics + + + | Address | [address] | | | [place] [address] | + + + | Home Phone [...] + | Debora Resendiz | ECON | [address] | | | | | [place] | | | | | [address] | | + + + + + [...] Providers + +------+ + | Care Computer Specialist Name | Role | Phone | [...] | | | Griselda | Herminia Yepez [place], | | | | | [facility] | [place] [address] | | | | | [facility] [address] | [phone] | | | | | Mailcode: SUKUMAR | | | | | | Griselda | | | | | | [place], [place] | | | | | | [address] | | | | | | [phone] | | | +--------+ + + + [...]
--- OUTSIDE RECORDS SUMMARY | ~2019-02-23 | XMS | Encounter Summary ---
Demographics + + + | Address | [address] | | | [place] [address] | + + + | Home Phone [...] + | Debora Resendiz | ECON | [address] | | | | | [place] | | | | | [address] | | + + + + + [...] Team Providers + +------+ + | Care Angle Dozer Operator Name | Role | Phone | [...] | | | Griselda | Herminia Yepez [place], | | | | | [facility] | [place] [address] | | | | | [address] | [phone] | | | | | Mailcode: CDRCP | | | | | | Griselda | | | | | | [place], [place] | | | | | | [address] | | | | | | [phone] | | | +--------+ + + + [...]
--- OUTSIDE RECORDS SUMMARY | ~2019-02-23 | XMS | Encounter Summary ---
Demographics + + + | Address | [address] | | | [place] [address] | + + + | Home Phone [...] + | Debora Resendiz | ECON | [address] | | | | | [place] | | | | | [address] | | + + + + + [...] Team Providers + +------+ + | Care Hangersmith Name | Role | Phone | + [...] | | | Griselda | Herminia Yepez [place], | | | | | [facility] | [place] [address] | | | | | [address] [facility] | [phone] | | | | | Mailcode: SUKUMAR | | | | | | Griselda | | | | | | [place], [place] | | | | | | [address] | | | | | | [phone] | | | +--------+ + + + [...] with large intestine | + + | Helicobacter positive gastritis Helicobacter pylori (H. pylori) | + + documented in this encounter"
--- OUTSIDE RECORDS SUMMARY | ~2019-02-23 | XMS | Encounter Summary ---
Demographics + + + | Address | [address] | | | [place] [address] | + + + | Home Phone [...] + | Debora Resendiz | ECON | [address] | | | | | [place] | | | | | [address] | | + + + + + [...] Team Providers + +------+ + | Care Technician Automatic Name | Role | Phone | + [...] + + + + | 06/18/ | Anesthesia | 8S INTRA OP | Adele Love | | | 2011 | Event | Gr[place]da | MD Uzair [address] [facility] | | | | | Children's | [facility] | | | | | [facility] Admitting | [place], [place] | | | | | Desk Once | [address] | | | | | admitted, go to the | [phone] | | | | | the [facility] floor Surgical | | | | | | Desk Located at the | | | | | | [address] | | | | | | [address] [place], | | | | | | [place] [address] | | | +--------+ + + + + Anesthesia Record + + + + + | Procedure Name | Responsible | Anesthesia Start | Anesthesia Stop Time | | | Anesthesiologist | Time | | + + + + + | EGD WITH BIOPSY: | Adele Love, | 06/19/11804 | 06/19/11901 | | COLONOSCOPY WITH | MD | | | | BIOPSY x7 (N/A ) | | | | + + + + + +----+---+ + + | Da | T | Event | Comment | | te | i | | | | | m | | | | | e | | | +----+---+ + + | 04 | 0 | Eq Check | Anesthesia machine checked Equipment verified | | /2 | 7 | | | | 6/ | 5 | | | | 20 | 5 | | | | 12 | | | | +----+---+ + + | | 0 | | | | | 7 | | | | | 5 | | | | | 6 | | | +----+---+ + + | | 0 | Pt. Check | Prior to anesthesia start, pt. Identified, examined, chart | | | 7 | | reviewed, PARQ held, anesthetic plan made or approved by | | | 5 | | attending anesthesiologist. NPO status confirmed as appropriate | | | 6 | | for procedure Preoperative evaluation: unchanged | +----+---+ + + | | 0 | Preprocedur | Pt ID confirmed, informed consent obtained, insertion site | | | 7 | e Checklist | marked, equipment available | | | 5 | | | | | 6 | | | +----+---+ + + | | 0 | An Start | | | | 8 | | | | | 0 | | | | | 5 | | | +----+---+ + + | | 0 | An Start | | | | 8 | Data | | | | 0 | | | | | 5 | | | +----+---+ + + | | 0 | Vitals | Monitors applied Vital signs checked | | | 8 | Checked | | | | 0 | | | | | 5 | | | +----+---+ + + | | 0 | Ready | | | | 8 | | | | | 1 | | | | | 1 | | | +----+---+ + + | | 0 | Abx held | | | | 8 | Not Ordered | | | | 1 | | | | | 1 | | | +----+---+ + + | | 0 | Incision | | | | 8 | | | | | 1 | | | | | 2 | | | +----+---+ + + | | 0 | Surgery end | | | | 8 | | | | | 4 | | | | | 2 | | | +----+---+ + + | | 0 | an stop | | | | 8 | data | | | | 4 | | | | | 4 | | | +----+---+ + + | | 0 | Anesthesia | | | | 9 | End | | | | 0 | | | | | 2 | | | +----+---+ + + +------+ | Meds | +------+ + + + | Name | Total | + + + | midazolam | 2 mg | + + + | alfentanil | 1,000 mcg | + + + | propofol | 80 mg | + + + | propofol INF | 511,360 mcg | + + + | LR | 700 mL | + + + + + | Name | + + | Air Flow rate (L/min) | + + + + | No blood administrations on file. | + + +--------+ + + + | Type | Details | Placement | Removal | +--------+ + + + | RETIRE | 06/19/11; 0705; 06/22/11; 1044; | 06/19/11 07 by | 06/22/11 1044 by | | D - | 22; Right; Antecubital; Positive | Renato Felix RN | Marisela Casey RN | | Periph | | | [...] | | | + +--------+ +--------+------+------+ | alfentanil (aka ALFENTA) | Given | 06/19/19 | 1,000 | | | | injection INTRAPROCEDURE PRN, | | 12 8:08 | mcg | | | | Starting Anika 06/19/11 at 0808, | | AM PDT | | | | | Until 07/01/11 at 1000 | | | | | | + +--------+ +--------+------+------+ +---+---+ | | | +---+---+ + + + +----+---+---+ | lactated ringers IV | given by | 06/19/19 | mL | | | | INTRAPROCEDURE CONTINUOUS PRN, | | 12 8:39 | | | | | Starting Anika 06/19/11 at 0808, | anesthes | AM PDT | | | | | Until 07/01/11 at 1000 | iology | | | | | + + + +----+---+---+ + + +----+---+---+ | given by anesthesiology | 06/19/19 | mL | | | | | 12 8:27 | | | | | | AM PDT | | | | + + +----+---+---+ | New Bag | 06/19/19 | mL | | | | | 12 8:08 | | | | | | AM PDT | | | | + + +----+---+---+ +---+---+ | | | +---+---+ + +-------+ +------+---+---+ | midazolam (aka VERSED) | Given | 06/19/19 | 2 mg | | | | injection INTRAPROCEDURE PRN, | | 12 8:04 | | | | | Starting Anika 06/19/11 at 0804, | | AM PDT | | | | | Until 07/01/11 at 1000, | | | | | | | sedation | | | | | | + +-------+ +------+---+---+ +---+---+ | | | +---+---+ + +---------+ + +--------+---+ | propofol (aka DIPRIVAN) | New Bag | 06/19/19 | 200 | 65.28 | | | injection INTRAPROCEDURE | | 12 8:15 | mcg/kg/m | mL/hr | | | CONTINUOUS PRN, Starting Anika | | AM PDT | in | | | | 06/19/11 at 0815, Until 07/01/11 | | | | | | | at 1000 | | | | | | + +---------+ + +--------+---+ +---+---+ | | | +---+---+ + +-------+ +-------+---+---+ | propofol INTRAPROCEDURE PRN, | Given | 06/19/19 | 30 mg | | | | Starting Anika 06/19/11 at 0810, | | 12 8:15 | | | | | Until 07/01/11 at 1000 | | AM PDT | | | | + +-------+ +-------+---+---+ +-------+ +-------+---+---+ | Given | 06/19/19 | 50 mg | | | | | 12 8:10 | | | | | | AM PDT | | | | +-------+ +-------+---+---+ +---+---+ | | | +---+---+ documented in this encounter"
--- OUTSIDE RECORDS SUMMARY | ~2019-02-23 | XMS | Encounter Summary ---
Demographics + + + | Address | [address] | | | [place] [address] | + + + | Home Phone [...] + | Debora Resendiz | ECON | [address] | | | | | [place] | | | | | [address] | | + + + + + [...] Team Providers + +------+ + | Care Cardiovascular Disease Specialist Name | Role | Phone | [...] | | | Griselda | Herminia Yepez [place], | | | | | [facility] | [place] [address] | | | | | [address] | [phone] | | | | | Mailcode: CDRCP | | | | | | Griselda | | | | | | [place], [place] | | | | | | [address] | | | | | | [phone] | | | +--------+ + + + [...]
--- OUTSIDE RECORDS SUMMARY | ~2019-02-23 | XMS | Clinical Summary ---
Demographics + + + | Address | [address] | | | [place] [address] | + + + | Home Phone [...] + + | Author | [facility] | + + + | Organization | [facility] | + + + | Address | Unknown | + + + | Phone | Unavailable | + + + Support + + + + + | Name | Relationship | Address | Phone | + + + + + | Debora Resendiz | ECON | [address] | | | | | [place] | | | | | [address] | | + + + + + [...] Team Providers + +------+ + | Care Technical Services Representative Name | Role | Phone | + +------+ + | Sirnivas Stephens DO | PCP | | + +------+ + Source Comments [facility] is fully live on both [facility] and [facility] Allergies No Known Allergies Medications + + [...] D/C'd Imuran | | July,, - decreased [id number] D: Terminal ileum, biopsy: - | | [...] | BCBS | xxxxxxxxxxx | 02/23/19 | [phone] | [address] | PPO | | SHIELD | OUT OF | x | 12-Pre | 8 | [address] | | | | STATE | | sent | | [place], | | | | | | | | [place] | | | | | | | | [address] | | + +--------+ +--------+ + +------+ [...] | 1971 | [phone] | [place] [address] | | | rahel | | | [...]
--- OUTSIDE RECORDS SUMMARY | ~2019-02-23 | XMS | Encounter Summary ---
Demographics + + + | Address | [address] | | | [place] [address] | + + + | Home Phone [...] + | Debora Resendiz | ECON | [address] | | | | | [place] | | | | | [address] | | + + + + + [...] Team Providers + +------+ + | Care Commercial Or Institutional Cleaner Name | Role | Phone | [...] [facility] | | | | | [facility] | [place] [address] | | | | | [address] [facility] | [phone] | | | | | Mailcode: SUKUMAR | | | | | | Griselda | | | | | | [place], [place] | | | | | | [address] | | | | | | [phone] | | | +--------+ + + + [...]
--- OUTSIDE RECORDS SUMMARY | ~2019-02-23 | XMS | Encounter Summary ---
Demographics + + + | Address | [address] | | | [place] [address] | + + + | Home Phone [...] + | Debora Resendiz | ECON | [address] | | | | | [place] | | | | | [address] | | + + + + + [...] Team Providers + +------+ + | Care Pretzel Twisting Machine Operator Name | Role | Phone [...] | | | Griselda | Herminia Yepez [place], | | | | | [facility] | [place] [address] | | | | | [address] [place] [address] | [phone] | | | | | Mailcode: SUKUMAR | | | | | | Griselda | | | | | | [place], [place] | | | | | | [address] | | | | | | [phone] | | | +--------+ + + + [...]
--- OUTSIDE RECORDS SUMMARY | ~2019-02-23 | XMS | Encounter Summary ---
Demographics + + + | Address | [address] | | | [place] [address] | + + + | Home Phone [...] + | Debora Resendiz | ECON | [address] | | | | | [place] | | | | | [address] | | + + + + + [...] Team Providers + +------+ + | Care Dock Associate Name | Role | Phone | [...] | | | Griselda | Herminia Yepez [place], | | | | | [facility] | [place] [address] | | | | | [address] | [phone] | | | | | Mailcode: CDRCP | | | | | | Griselda | | | | | | [place], [place] | | | | | | [address] | | | | | | [phone] | | | +--------+ + + + [...]
--- OUTSIDE RECORDS SUMMARY | ~2019-02-23 | XMS | Encounter Summary ---
Demographics + + + | Address | [address] | | | [place] [address] | + + + | Home Phone [...] + | Debora Resendiz | ECON | [address] | | | | | [place] | | | | | [address] | | + + + + + [...] Team Providers + +------+ + | Care Court Usher Name | Role | Phone | + [...] | | | Griselda | Herminia Yepez [place], | | | | | [facility] [place] | [place] [address] | | | | | [address] [facility] | [phone] | | | | | Mailcode: SUKUMAR | | | | | | Griselda | | | | | | [place], [place] | | | | | | [address] | | | | | | [phone] | | | +--------+ + + + [...]
--- OUTSIDE RECORDS SUMMARY | ~2019-02-23 | XMS | Encounter Summary ---
Demographics + + + | Address | [address] | | | [place] [address] | + + + | Home Phone [...] + | Debora Resendiz | ECON | [address] | | | | | [place] | | | | | [address] | | + + + + + [...] Team Providers + +------+ + | Care Body Liner Name | Role | Phone | + [...] | | | | | intestine | [place], [place] | [address] | | | | | ([facility]) | [address] | [place] | | | | | Procedures | Phone: | Research | | | | | MR | [phone] | Center | | | | | ENTEROGRAPHY | Fax: | [place], [place] | | | | | ABDOMEN AND | [phone] | [address] | | | | | [address] | | Phone: | | | | | CONTRAST | | [phone] | | | | | | | Fax: | | | | | | | [phone] | +--------+--------+ + + + + Reason for Visit Diagnostic Testing (Routine) +--------+--------+ + + + + | Status | Reason | Specialty | Diagnoses / | Referred By | Referred To | | | | | Procedures | Contact | Contact | +--------+--------+ + + + + | Closed | | Radiology | Diagnoses | [place], | [facility] | | | | | Crohn's | Tania Landrum MD | [address] | | | | | disease, | [address] | [address] [place] | | | | | small and | [address] | | | | | large | Herminia Yepez | Mailcode: | | | | | intestine | [place], [place] | [address] | | | | | ([facility]) | [address] | [place] | | | | | Procedures | Phone: | Research | | | | | MR | [phone] | Center | | | | | ENTEROGRAPHY | Fax: | [place], [place] | | | | | ABDOMEN AND | [phone] | [address] | | | | | P[address] | | Phone: | | | | | CONTRAST | | [phone] | | | | | | | Fax: | | | | | | | [phone] | +--------+--------+ + + + + Encounter Details +--------+ + + + + | Date | Type | Department | Care Team | Description | +--------+ + + + + | 03/21/ | Hospital | Diagnostic Imaging | | | | 2011 | Encounter | Services at [facility] | | | | | | [address] | | | | | | Herminia Yepez Mailcode: | | | | | | [address] [place] | | | | | | [facility] | | | | | | [place], [place] | | | | | | [address] | | | | | | [phone] | | | +--------+ + + + [...] Mason | | | | | | [place] 03/21/201111:27 | | | | | | AM | | | | + + + + + + + + | Specimen | + + | | + + + +---------+ + + | Performing | Address | City/State/Zipcode | Phone Number | | Organization | | | | + +---------+ + + | [facility] DEPARTMENT OF | | | | [...]
--- OUTSIDE RECORDS SUMMARY | ~2019-02-23 | XMS | Encounter Summary ---
Demographics + + + | Address | [address] | | | [place] [address] | + + + | Home Phone [...] + | Debora Resendiz | ECON | [address] | | | | | [place] | | | | | [address] | | + + + + + [...] Team Providers + +------+ + | Care Government Affairs Specialist Name | Role | Phone | [...] [address] [facility] | stool, stomach pain) | | | | Griselda | Cristian Yepez [place], | | | | | [facility] | [place] [address] | | | | | [address] | [phone] | | | | | Mailcode: CDRCP | | | | | | Griselda | | | | | | [place], [place] | | | | | | [address] | | | | | | [phone] | | | +--------+ + + + [...] [facility] | [address] | [place] [address] | | | SERVICES, CORE | PARK [...] | + + + + + | [facility] | [address] | [place] [address] | | | SERVICES, CORE | PARK [...] | + + + + + | [facility] - AIRPORT - | [address] | [place] [address] | | | [place] | | | [...] [facility] | [address] | [place] [address] | | | SERVICES, VENU | CRISTIAN [...]
--- OUTSIDE RECORDS SUMMARY | ~2019-02-23 | XMS | Encounter Summary ---
Demographics + + + | Address | [address] | | | [place] [address] | + + + | Home Phone [...] + | Debora Resendiz | ECON | [address] | | | | | [place] | | | | | [address] | | + + + + + [...] Team Providers + +------+ + | Care Geophysical Party Chief Name | Role | Phone | + [...] [address] [facility] | (Note confirming | | | | Griselda | Herminia Yepez [place], | Crohn's) | | | | [facility] | [place] [address] | | | | | [address] | [phone] | | | | | Mailcode: CDRCP | | | | | | Griselda | | | | | | [place], [place] | | | | | | [address] | | | | | | [phone] | | | +--------+ + + + [...]
--- OUTSIDE RECORDS SUMMARY | ~2019-02-23 | XMS | Encounter Summary ---
Demographics + + + | Address | [address] | | | [place] [address] | + + + | Home Phone [...] + | Debora Resendiz | ECON | [address] | | | | | [place] | | | | | [phone] | | + + + + + [...] Team Providers + +------+ + | Care Data Collection Technician Name | Role | Phone | [...] | | | Griselda | Herminia Yepez [place], | | | | | [facility] | [place] [address] | | | | | [address] | [phone] | | | | | Mailcode: CDRCP | | | | | | Griselda | | | | | | [place], [place] | | | | | | [address] | | | | | | [phone] | | | +--------+ + + + [...]
--- OUTSIDE RECORDS SUMMARY | ~2019-02-23 | XMS | Encounter Summary ---
Demographics + + + | Address | [address] | | | [place] [address] | + + + | Home Phone [...] + | Debora Resendiz | ECON | [phone] | | | | | [place] | | | | | [address] | | + + + + + [...] Providers + +------+ + | Care Rn Complex Care Name | Role | Phone | + +------+ + | Tracey Galeas MD | PCP | Unavailable | + +------+ + Encounter Details +--------+ + + + + | Date | Type | Department | Care Team | Description | +--------+ + + + + | 03/08/ | Documentati | Vascular Access at | [place], | | | 2012 | on | [facility] [address] | [address] | | | | | [address] | [address] [facility] | | | | | [facility] | [place], [place] | | | | | [place], [place] | [address] | | | | | [address] | | | | | | [phone] | | | +--------+ + + + [...]
--- OUTSIDE RECORDS SUMMARY | ~2019-02-23 | XMS | Encounter Summary ---
Demographics + + + | Address | [address] | | | [place] [address] | + + + | Home Phone [...] + | Debora Resendiz | ECON | [address] | | | | | [place] | | | | | [address] | | + + + + + [...] Team Providers + +------+ + | Care Street Car Mechanic Name | Role | Phone | [...] | | | | | Crohn's | [address] | [address] | | | | | disease, | Anam | St | | | | | small and | Cristian Yepez | Mailcode: | | | | | large | [facility] [place] | [facility] | | | | | intestine, | [address] | [place], [place] | | | | | other | Phone: | [address] | | | | | complication | [phone] | Phone: | | | | | Procedures | Fax: | [phone] | | | | | CONSULT TO | [phone] | Fax: | | | | | [facility] | | [phone] | | | | | PSYCHOLOGY | [...] Required | ogy | enteritis of | [place] | [address] | | | | | small | PERMANENTE | Mailcode: | | | | | intestine | [place] | CDRCP | | | | | with large | [address] | [address] | | | | | intestine | [address] | [place], [place] | | | | | ([facility]) | [address] | [address] | | | | | Encounter | [place], | Phone: | | | | | for | [place] [address] | [phone] | | | | | long-term | | Fax: | | | | | (current) | | [phone] | | | | | use of [...] | Visit | Gastroenterology at | [address] [facility] | Dx); Crohn's | | | | Griselda | Cristian [facility], | disease, small and | | | | [facility] | [place] [address] | large intestine, | | | | [address] | [phone] | other complication | | | | Mailcode: CDRCP | | ([facility]) | | | | Griselda | | | | | | [place], [place] | | | | | | [address] | | | | | | [phone] | | | +--------+---------+ + + + [...] Be sure you are signed up for GreenDot Trans if you have a computer online. Our front desk associate staff will give you the weblink, and a code to enter. Answer a few questions, and it is good to go. 2. Make appt with iggy Xie psychologist at [facility] Follow-up: Please schedule your next [...] check out excellent online websites such as: GIKiSensdata.org - For constipation info, watch the video "The Poo InYou." iPolicy Networks.9sky.com KidFrontera Films.org DoBoulder Imaging.com/GI FAAN.org for food allergy info IFFGD for functional gastrointestinal disorders For Liver Diseases: AASLD [employer] Foundation offer excellent information. For Crohn's or ulcerative colitis information, CCFA.org is a great website. Great YOUTUBE ON IBD MEDS: http://www.72798.comd.com/en/understanding-ibd/nlysnapwrufmn-xok-bclqz-mwa-wjehlkqr-eh-ibd-t herapies.html Results of tests: Results of laboratory tests, biopsies or Xrays will be sent to you by Really Simple. If you do not have internet access, results will be sent by mail. Questions: If you have non-urgent questions, please send through Really Simple. For urgent questions, please call the [facility] GI office at [phone]. documented in this encounter Progress Notes Tania [...] psychosocial issues, living with grandmother out in [place]. He plans to attend college in [employer] [facility]. Has had issues with substance abuse. I [...] at least 50% of the time in njmp-au-djpn patient edu cation, medical care delivery and in care coordination. TANIA FOSTER MD [facility] [address] [facility] [address] Mailcode: [place] [address] Lab on 03/24/2014 Component Date [...] | + + + + + | [facility] | [address] | [place] [address] | | | SERVICES, CORE | PARK [...] + + + + + | [facility] | [address] | [place] [address] | | | SERVICES, CORE | [address] | | | + + + + + documented in this encounter Visit Diagnoses + + | Diagnosis | + + | Diarrhea - Primary | + + | Crohn's disease, small and large intestine, other complication | + + documented in this encounter
--- OUTSIDE RECORDS SUMMARY | ~2019-02-23 | XMS | Encounter Summary ---
Demographics + + + | Address | [address] | | | [place] [address] | + + + | Home Phone [...] + | Debora Resendiz | ECON | [address] | | | | | [place] | | | | | [address] | | + + + + + [...] Team Providers + +------+ + | Care Metal Cutter Name | Role | Phone | [...] [facility] | | | | | [facility] [place] | [place] [address] | | | | | [address] | [phone] | | | | | Mailcode: [facility] | | | | | | Griselda | | | | | | [place], [place] | | | | | | [address] | | | | | | [phone] | | | +--------+ + + + [...]
--- OUTSIDE RECORDS SUMMARY | ~2019-02-23 | XMS | Encounter Summary ---
Demographics + + + | Address | [address] | | | [place] [address] | + + + | Home Phone [...] + | Debora Resendiz | ECON | [address] | | | | | [place] | | | | | [address] | | + + + + + [...] Team Providers + +------+ + | Care Web Site Developer Name | Role | Phone | [...] Healthcare System | | | | | [facility] | [place] [address] | | | | | [address] | [phone] | | | | | Mailcode: [facility] | | | | | | Griselda | | | | | | [place], [place] | | | | | | [address] | | | | | | [phone] | | | +--------+ + + + [...]
--- OUTSIDE RECORDS SUMMARY | ~2019-02-23 | XMS | Encounter Summary ---
Demographics + + + | Address | [address] | | | [place] [address] | + + + | Home Phone [...] + | Debora Resendiz | ECON | [address] | | | | | [place] | | | | | [address] | | + + + + + [...] Team Providers + +------+ + | Care Frankfurter Inspector Name | Role | Phone | [...] | Pain | Diagnoses | Kristin, | [facility] | | | | Management | Crohn's | Tania Landrum MD | [address] | | | | | disease, | [address] | | | | | | small and | Anam | Mailcode: | | | | | large | Herminia Yepez | CH15P | | | | | intestine | [place], [place] | [place] | | | | | ([facility]) | [address] | [address] | | | | | Procedures | Phone: | Phone: | | | | | CONSULT TO | [phone] | [phone] | | | | | PEDIATRIC | Fax: | Fax: | | | | | PAIN | [phone] | [phone] | +--------+--------+ + + + + Reason [...] | | | Franco | Herminia Yepez [place], | intestine with | | | | [facility] | [place] [address] | granuloma in the | | | | [address] | [phone] | colon, severe | | | | Mailcode: [facility] | | duodenitis (Primary | | | | Desmonder | | Dx) | | | | [place], [place] | | | | | | [address] | | | | | | [phone] | | | +--------+---------+ + + + [...] recently, and they had to call the Distributor Of Directories to come to the home due to [...] Lab results from last GI visit: Clinical Sole Rounding Machine Operator on 09/26/2011 Component Date Value Range WHITE [...] www:GastroKids.org and www.CCFA.org 4. Health care maintenance Orchestrator exam every 2 years. Flu shot reminder: done - emphasized no nasal mist (live virus). 5. I will send him a brochure for the [facility], as I think there is a strong need for he and family. Will encourage mother to also join [facility]. Note: Immunosuppressed patients on Remicade, Humira, Cimzia, chronic steroids, methotrexate , imuran or 6-MP should not have live virus vaccinations , including the nasal flu mist, MMR or Varicella vaccination. 5. Next recommended follow-up in GI clinic: 3 months MD [place] CR GASTROENTEROLOGY [facility] [facility] Mailcode: [facility] [place] [address] documented in this enco unter Plan of [...] + | [facility] | [address] | [place] [address] | | | PATHOLOGY | [address] [...] [facility] | REGIONAL | [place] [address] | LABORATORY | | [place] [address] | | + + + + + + + + | Performing | Address | City/State/Zipcode | Phone Number | | Organization | | | | + + + + + | [facility] | [address] | [place] [address] | | | LABORATORY | | | [...] + + + | [facility] ([address]) | [facility] | | [facility] [place] [address] [facility] | REGIONAL | | [place] [address] | LABORATORY | + + + + + + + + | Performing | Address | City/State/Zipcode | Phone Number | | Organization | | | | + + + + + | [facility] | [address] | [place] [address] | | | LABORATORY | | | [...] + | [facility] | [address] | [place] [address] | | | PATHOLOGY | [address] [...] + | [facility] | [address] | [place] [address] | | | PATHOLOGY | [address] [...]
--- OUTSIDE RECORDS SUMMARY | ~2019-02-23 | XMS | Encounter Summary ---
Demographics + + + | Address | [address] | | | [place] [address] | + + + | Home Phone [...] + | Debora Resendiz | ECON | [address] | | | | | [place] | | | | | [address] | | + + + + + [...] Team Providers + +------+ + | Care Batch Unit Treater Name | Role | Phone | + [...] | Gastroenterology at | [address] [facility] | infection) | | | | Griselda | Herminia Yepez [place], | | | | | [facility] | [place] [address] | | | | | [address] | [phone] | | | | | Mailcode: [facility] | | | | | | Griselda | | | | | | [place], [place] | | | | | | [address] | | | | | | [phone] | | | +--------+ + + + [...]
--- OUTSIDE RECORDS SUMMARY | ~2019-02-23 | XMS | Encounter Summary ---
Demographics + + + | Address | [address] | | | [place] [address] | + + + | Home Phone [...] + | Debora Resendiz | ECON | [address] | | | | | [place] | | | | | [address] | | + + + + + [...] Team Providers + +------+ + | Care Journeyman Painter Name | Role | Phone | + [...] | | | Griselda | Herminia Yepez [place], | | | | | [facility] | [place] [address] | | | | | [address] | [phone] | | | | | Mailcode: [facility] | | | | | | Griselda | | | | | | [place], [place] | | | | | | [address] | | | | | | [phone] | | | +--------+ + + + [...]
--- OUTSIDE RECORDS SUMMARY | ~2019-02-23 | XMS | Encounter Summary ---
Demographics + + + | Address | [address] | | | [place] [address] | + + + | Home Phone [...] + | Debora Resendiz | ECON | [address] | | | | | [place] | | | | | [address] | | + + + + + [...] Providers + +------+ + | Care Government Clerk Name | Role | Phone | [...] 2012 | | Gastroenterology at | [address] [facility] | | | | | [place] | Herminia Yepez [place], | | | | | [facility] | [place] [address] | | | | | [address] | [phone] | | | | | Mailcode: CDR | | | | | | Griselda | | | | | | [place], [place] | | | | | | [address] | | | | | | [phone] | | | +--------+ + + + [...] + | [facility] | [address] | [place] [address] | | | [place] | | | | + + + [...]
--- OUTSIDE RECORDS SUMMARY | ~2019-02-23 | XMS | Encounter Summary ---
Demographics + + + | Address | [address] | | | [place] [address] | + + + | Home Phone [...] + | Debora Resendiz | ECON | [address] | | | | | [place] | | | | | [address] | | + + + + + [...] Providers + +------+ + | Care Marketing Support Coordinator Name | Role | Phone [...] Yepez [place], | | | | | [facility] | [place] [address] | | | | | [address] [facility] | [phone] | | | | | Mailcode: SUKUMAR | | | | | | Griselda | | | | | | [place], [place] | | | | | | [address] | | | | | | [phone] | | | +--------+ + + + [...]
--- OUTSIDE RECORDS SUMMARY | ~2019-02-23 | XMS | Encounter Summary ---
Demographics + + + | Address | [address] | | | [place] [address] | + + + | Home Phone [...] + | Debora Resendiz | ECON | [address] | | | | | [place] | | | | | [address] | | + + + + + [...] Team Providers + +------+ + | Care Spray Painting Machine Operator Name | Role | Phone [...] 2013 | | Gastroenterology at | [address] [facility] An[address] | | | | | [place] | Herminia Yepez [place], | | | | | [facility] | [place] [address] | | | | | [address] [facility] | [phone] | | | | | Mailcode: CDRCP | | | | | | Griselda | | | | | | [place], [place] | | | | | | [address] | | | | | | [phone] | | | +--------+ + + + [...]
--- OUTSIDE RECORDS SUMMARY | ~2019-02-23 | XMS | Encounter Summary ---
Demographics + + + | Address | [address] | | | [place] [address] | + + + | Home Phone [...] + | Debora Resendiz | ECON | [address] | | | | | [place] | | | | | [address] | | + + + + + [...] + +------+ + | Care Sales And Service Engineer Name | Role | Phone | [...] + + | 01/29/ | Hospital | [facility] [address] | Tania Foster MD | | | 2012 | Encounter | [address] | [address] | | | | | [id number] | [address] [facility] | | | | | [place] | [place] [address] | | | | | [facility] | [phone] | | | | | [place], [place] [facility] | | | | | | [phone] | | | +--------+ + + + [...] take usual medicines unless told otherwise by [facility]. How to Reach Your Doctor: Mon-Fri from 8:00-4:30, call GI Clinic at [phone] After hours, weekends, and holidays, call Hospital Director Cloud Transformation at [phone]. Ask to have your doctor paged. Return [...] + | [facility] | [address] | [place] [address] | | | [place] | | | | + + + [...] | [facility] | [address] | [place] [address] | | | PATHOLOGY | [address] | | | + + + + + documented in this encounter Visit Diagnoses Not on filedocumented in this encounter"
--- OUTSIDE RECORDS SUMMARY | ~2019-02-23 | XMS | Encounter Summary ---
Demographics + + + | Address | [address] | | | [place] [address] | + + + | Home Phone [...] + | Debora Resendiz | ECON | [address] | | | | | [place] | | | | | [address] | | + + + + + [...] Team Providers + +------+ + | Care Product Expert Name | Role | Phone | + [...] 2013 | | Gastroenterology at | [address] [facility] | Prescription) | | | | [place] | Herminia Yepez [place], | | | | | [facility] | [place] [address] | | | | | [address] | [phone] | | | | | Mailcode: [facility] | | | | | | Griselda | | | | | | [place], [place] | | | | | | [address] | | | | | | [phone] | | | +--------+ + + + [...]
--- OUTSIDE RECORDS SUMMARY | ~2019-02-23 | XMS | Encounter Summary ---
Demographics + + + | Address | [address] | | | [place] [address] | + + + | Home Phone [...] + | Debora Resendiz | ECON | [address] | | | | | [place] | | | | | [address] | | + + + + + [...] Team Providers + +------+ + | Care Package Center Supervisor Name | Role | Phone | + +------+ + | Srinivas Stephens DO | PCP | | + +------+ + Encounter Details +--------+------+ + + + | Date | Type | Department | Care Team | Description | +--------+------+ + + + | 12/11/ | Lab | Lab Center at [facility] | | Crohn's disease, | | 2015 | | 7th Floor [address] | | small and large | | | | [address] [place], | | intestine, other | | | | [place] [address] | | complication (HCC); | | | | [phone] | | Adalimumab (Humira) | | | [...] | + + + + + | [facility] | [address] | [place] [address] | | | VENU [address]A | [address] [...] [facility] | [address] | [place] [address] | | | SERVICES, SPECIAL | PARK [...] | + + + + + | [facility] | [address] [facility] | [place] [address] | | | SERVICES, CORE | PARK [...] | | | LABORATORY | | | MAURITIAN | | | SERVICES, | | | [...] | + + + + + | Intacct | [address] | [place] [address] | | | SERVICES, CORE | [address] | | | + + + + + documented in this encounter Visit Diagnoses + + | Diagnosis | + + | Crohn's disease, small and large intestine, other complication | + + | Adalimumab (Humira) long-term use | + + documented in this encounter"
--- OUTSIDE RECORDS SUMMARY | ~2019-02-23 | XMS | Encounter Summary ---
Demographics + + + | Address | [address] | | | [place] [address] | + + + | Home Phone [...] + | Debora Resendiz | ECON | [address] | | | | | [place] | | | | | [address] | | + + + + + [...] Team Providers + +------+ + | Care Veterinary Laboratory Diagnostician Name | Role | Phone | + [...] | | | Griselda | Herminia Yepez [place], | | | | | [facility] | [place] [address] | | | | | [address] [facility] | [phone] | | | | | Mailcode: SU[facility]UMAR | | | | | | Griselda | | | | | | [place], [place] | | | | | | [address] | | | | | | [phone] | | | +--------+ + + + [...]
--- OUTSIDE RECORDS SUMMARY | ~2019-02-23 | XMS | Encounter Summary ---
Demographics + + + | Address | [address] | | | [place] [address] | + + + | Home Phone [...] + | Debora Resendiz | ECON | [address] | | | | | [place] | | | | | [address] | | + + + + + [...] Team Providers + +------+ + | Care Vacuum Kettle Cook Name | Role | Phone | + [...] | | | | Staff | at [facility] | | | | | | [facility] | | | | | | [address] | | | | | | Mailcode: DCH10C | | | | | | Griselda | | | | | | [place], [place] | | | | | | [address] | | | | | | [phone] | | | +--------+ + + + [...] - 06/28/2012 11:52 AM Day came to [facility] today for IV Remicade. A PIV [...] + + | [facility] | [address] [facility] | [place] [address] | | | SERVICES, CORE | PARK [...] [facility] | [address] | [place] [address] | | | SERVICES, CORE | PARK [...]
--- OUTSIDE RECORDS SUMMARY | ~2019-02-23 | XMS | Encounter Summary ---
Demographics + + + | Address | [address] | | | [place] [address] | + + + | Home Phone [...] + | Debora Resendiz | ECON | [address] | | | | | [place] | | | | | [address] | | + + + + + [...] Team Providers + +------+ + | Care Snow Technician Name | Role | Phone | [...] 2014 | | Gastroenterology at | [address] [facility] | Prep) | | | | [place] | Herminia Yepez [place], | | | | | [facility] | [place] [address] | | | | | [address] | [phone] | | | | | Mailcode: CDRSKYE | | | | | | Griselda | | | | | | [place], [place] | | | | | | [address] | | | | | | [phone] | | | +--------+ + + + [...]
--- OUTSIDE RECORDS SUMMARY | ~2019-02-23 | XMS | Encounter Summary ---
Demographics + + + | Address | [address] | | | [place] [address] | + + + | Home Phone [...] + | Debora Resendiz | ECON | [address] | | | | | [place] | | | | | [address] | | + + + + + [...] Team Providers + +------+ + | Care Broadcast Engineer Name | Role | Phone | [...] | Gastroenterology at | [address] [facility] | Prednisone) | | | | [place] | Herminia Yepez [place], | | | | | [facility] | [place] [address] | | | | | [address] | [phone] | | | | | Mailcode: [facility] | | | | | | Griselda | | | | | | [place], [place] | | | | | | [address] | | | | | | [phone] | | | +--------+ + + + [...]
--- OUTSIDE RECORDS SUMMARY | ~2019-02-23 | XMS | Encounter Summary ---
Demographics + + + | Address | [address] | | | [place] [address] | + + + | Home Phone [...] + | Debora Resendiz | ECON | [address] | | | | | [place] | | | | | [address] | | + + + + + [...] Team Providers + +------+ + | Care Chimney Builder Name | Role | Phone | + [...] | Crohn's | Tania Landrum MD | [facility] [address] | | | Required | ogy | disease of | [address] [facility] | [address] | | | | | both small | Anam | Mailcode: | | | | | and large | Herminia Yepez | CDRCP | | | | | intestine | [place] | [place] | | | | | without | [address] | [place], [place] | | | | | complication | Phone: | [address] | | | | | ([facility]) | [phone] | Phone: | | | | | Procedures | Fax: | [phone] | | | | | CONSULT TO | [phone] | Fax: | | | | | PEDS GASTRO | | [phone] | +--------+ + + + + + [...] ogy | enteritis of | Family | [address] | | | | | small | Health | Mailcode: | | | | | intestine | Associates | CDRCP | | | | | with large | [address] | [place] | | | | | intestine | [address] | [place], [place] | | | | | ([facility]) | [place], | [address] | | | | | | [place] [address] | Phone: | | | | | | Phone: | [phone] | | | | | | [phone] | Fax: | | | | | | Fax: | [phone] | | | | | | [phone] | | +--------+--------+ + + + + Encounter Details +--------+---------+ + + + | Date | Type | Department | Care Team | Description | +--------+---------+ + + + | 12/11/ | Office | Pediatric | Tania Foster MD | Crohn's disease of | | 2015 | Visit | Gastroenterology at | [address] [facility] | both small and large | | | | [place] | Herminia Yepez [place], | intestine without | | | | [facility] | [place] [address] | complication (HCC) | | | | [address] | [phone] | (Primary Dx) | | | | Mailcode: CDRCP | | | | | | [place] | | | | | | [place], [place] | | | | | | [address] | | | | | | [phone] | | | +--------+---------+ + + + [...] plan: Be sure you sign up for Storyvine if you have a computer online. Obtain the web-link and code from our desk staff. Once in the link, it takes only a few minutes to complete setup. Flu shot!! Follow with our psych fellow, Marcela Bcah Follow-up: Please schedule your next GI visit in: 6 months What if the studies are normal for my child? Please make a clinic appointment with me to discuss the plan if studies are normal, and if recommended diet changes or other therapy do not resolve the symptoms. Education: For information on GI and nutrition topics, please check out excellent online websites such as: [employer].org - For constipation info, watch the video "The Irene InYou." [facility].org IFFGD.org for irritable bowel type of illnesses Results of tests: Results of laboratory tests, biopsies or Xrays will be sent to you by ProfitPoint. If you do not have internet access, results will be sent by mail. Questions: If you have non-urgent questions, please send through ProfitPoint. For urgent questions, please call the [facility] GI office at [phone]. documented in this encounter Progress Notes Tania [...] with mother. I placed referral for our clinical trial associate, Marcela Daley. Patient will follow with her. [...] at least 50% of the time in fvyg-cv-[id number] patient edu cation, medical care delivery and in care coordination. Tania Foster MD [facility] [address] [facility] Mailcode: [place] [address] Lab on 12/11/2014 Component Date Value Range GLUCOSE, PLASMA (LAB) (mg/dL) 12/11/2014 88 60-99 BUN, PLASMA (LAB) (mg/dL) 12/11/2014 8 6-20 CREATININE PLASMA (LAB) (mg/dL) 12/11/2014 0.93 0.70-1.30 EGFR - BRAZILIAN (mL/min) 12/11/2014 >60 >60- EGFR NON -BRAZILIAN (mL/min) 12/11/2014 >60 >60- SODIUM, PLASMA (LAB) [...]
--- OUTSIDE RECORDS SUMMARY | ~2019-02-23 | XMS | Encounter Summary ---
Demographics + + + | Address | [address] | | | [place] [address] | + + + | Home Phone [...] + | Debora Resendiz | ECON | [address] | | | | | [place] | | | | | [address] | | + + + + + [...] Team Providers + +------+ + | Care Biomedical Electronics Technician Name | Role | Phone | [...] + + + + | 12/28/ | Typewriter Assembly And Parts Inspector | Pediatric | Tania Foster MD | | | 2011 | | Gastroenterology at | [address] | | | | | [place] | [address]inia [address] [place], | | | | | [facility] | [place] [address] | | | | | [address] [facility] | [phone] | | | | | Mailcode: SUKUMAR | | | | | | [place]da | | | | | | [place], [place] | | | | | | [address] | | | | | | [phone] | | | +--------+ + + + [...]
--- OUTSIDE RECORDS SUMMARY | ~2019-02-23 | XMS | Encounter Summary ---
Demographics + + + | Address | [address] | | | [place] [address] | + + + | Home Phone [...] + | Debora Resendiz | ECON | [address] | | | | | [place] | | | | | [address] | | + + + + + [...] Team Providers + +------+ + | Care Customer Relationship Specialist Name | Role | Phone | [...] Barrios; | | 2007 | Visit | [facility] | [address] | Vitreous Anomalies, | | | | [place] [address] | [facility], | Congenital | | | | [place] | [place] [address] | | | | | Mailcode: CY[place]THIA | [phone] | | | | | [place] [address] | | | | | | [phone] | | | +--------+---------+ + + + [...] 3. 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
--- OUTSIDE RECORDS SUMMARY | ~2019-02-23 | XMS | Encounter Summary ---
Demographics + + + | Address | [address] | | | [place] [address] | + + + | Home Phone [...] | + + + + + | Debroa Resendiz | ECON | [address] | | | | | [place] | | | | | [address] | | + + + + + [...] Team Providers + +------+ + | Care Finisher Polisher Name | Role | Phone | [...] Event | [place]da | MD Uzair [address] [facility] | | | | | Children's | [facility] | | | | | [facility] Admitting | [place], [place] | | | | | Desk Once | [address] | | | | | admitted, go to the | [phone] | | | | | [facility] floor Surgical | | | | | | Desk Located at the | | | | | | [address] [place] [address] | | | | | [address] [place], | | | | | | [place] [address] | | | +--------+ + + + [...]
[~2019-02-23 21:01] MED LIST changes: +AUGMENTIN 875-1 EACH PO; +MEDROL4 MG PO; +ZITHROMAX250 MG PO
== END 2019-02-23 21:36 | disposition home or self-care (01) ==
LOC: ED 21:01
DX: J20.9 Acute bronchitis, unspecified (principal); J01.90 Acute sinusitis, unspecified; Z87.891 Personal history of nicotine dependence
CPT/HCPCS: 99283

== ENCOUNTER 2022-10-29 17:45 | Emergency (ER) | payer OTHER ==
[~2022-10-29] VITALS: Ht 177.8 cm; Wt 56.7 kg
[2022-10-29 20:20] LABS: INFLUENZA B NAA NEGATIVE (NEGATIVE); RESPIRATORY SYNCYTIAL VIR NAA NEGATIVE (NEGATIVE)
[2022-10-29] MEDS ORDERED: PAXLOVID 300-11 EACH PO (20:44)
[2022-10-29 20:58] VITALS: BP 126/77
== END 2022-10-29 21:08 | disposition home or self-care (01) ==
LOC: ED 17:45
PROVIDERS: Family Medicine
DX: U07.1 COVID-19 (principal); J45.909 Unspecified asthma, uncomplicated; Z87.891 Personal history of nicotine dependence; Z79.899 Other long term (current) drug therapy
CPT/HCPCS: 87502; 99284; C9803; U0002

== ENCOUNTER 2022-12-03 11:18 | Emergency (ER) | payer OTHER ==
[~2022-12-03] VITALS: Ht 177.8 cm; Wt 54.8 kg
[~2022-12-03 11:18] MED LIST changes: +PAXLOVID 300-11 EACH PO
[2022-12-03] MEDS ORDERED: BUDESONIDE EC3 M1 PO (11:37)
[2022-12-03 12:20] LABS: HEMATOCRIT 40.5 % (35.0-50.0); HEMOGLOBIN 12.8 g/dL (12.0-18.0); MCH 26.9 (27-36); MCHC 31.6 g/dl (30-36); MCV 85.3 fl (81-99); PLATELET COUNT 419 K/uL (140-440); RBC 4.75 M/ul (4.3-5.7)
[2022-12-03 12:32] LABS: ALBUMIN 2.2 g/dL (3.4-5.0); ALBUMIN/GLOBULIN RATIO 0.52 (1.1-2.4); ANION GAP 10.8 (7-21); BILIRUBIN, TOTAL 0.5 ng/dL (0.2-1.0); BUN/CREATININE RATIO 7.31 (6.0-28.6); CALCIUM 8.4 mg/dL (8.5-10.1); CREATININE, SERUM 0.82 mg/dL (0.70-1.30); POTASSIUM 3.8 mmol/L (3.5-5.1); PROTEIN, TOTAL 6.4 g/dL (6.4-8.2)
[2022-12-03 12:55] LABS: LYMPHOCYTES, MANUAL DIFF 25; MONOCYTES, MANUAL DIFF 4; NEUTROPHILS, MANUAL DIFF 71
[2022-12-03 14:30] VITALS: BP 142/90
== END 2022-12-03 14:25 | disposition home or self-care (01) ==
LOC: ED 11:18
PROVIDERS: Emergency Medicine
DX: L02.31 Cutaneous abscess of buttock (principal); J45.909 Unspecified asthma, uncomplicated; Z87.891 Personal history of nicotine dependence; Z79.899 Other long term (current) drug therapy
CPT/HCPCS: 10060; 36415; 80053; 85025; 87070; 87075; 87205; 99152; 99283-25; A9270; J1170; J2765; J3490

== ENCOUNTER 2024-03-11 06:22 | Emergency (ER) | payer OTHER ==
[~2024-03-11] VITALS: Ht 177.8 cm; Wt 67.6 kg
[~2024-03-11 06:22] MED LIST changes: +AMOX TR-K CLV1 EAC1 PO; +BUDESONIDE EC3 M1 PO; +LOSARTAN POTASS25 MG PO; +VITAMIN D21250 MCG PO
[2024-03-11] MEDS ORDERED: HADLIMA(CF40 MG/0.1 SQ (06:38)
[2024-03-11] MEDS ORDERED: OXYCODONE HCL 5 MG TAB PO ONE (06:45)
[2024-03-11 07:01] LABS: BASOPHILS 0.6 % (0-2); EOSINOPHILS 1.4 % (0-6); HEMOGLOBIN 13.3 g/dL (12.0-18.0); LYMPHOCYTES 22.1 % (24-44); MCH 28.3 (27-36); MCHC 33.2 g/dl (30-36); MCV 85.3 fl (81-99); MONOCYTES 9.2 % (0-12); NEUTROPHILS 66.7 % (39-80); PLATELET COUNT 293 K/uL (140-440); RBC 4.68 M/ul (4.3-5.7); RDW 18.2 (10.5-15.0)
[2024-03-11 07:13] LABS: ALBUMIN 2.3 g/dL (3.4-5.0); ALBUMIN/GLOBULIN RATIO 0.55 (1.1-2.4); ANION GAP 6.8 (7-21); BILIRUBIN, TOTAL 0.3 ng/dL (0.2-1.0); BUN/CREATININE RATIO 4.49 (6.0-28.6); CREATININE, SERUM 0.89 mg/dL (0.70-1.30); POTASSIUM 3.8 mmol/L (3.5-5.1); PROTEIN, TOTAL 6.5 g/dL (6.4-8.2)
[2024-03-11] MEDS ORDERED: HYDROmorphone HCL 1 MG/ML SYR IV PRN (08:00)
[2024-03-11] MEDS ORDERED: KETOROLAC TROMETHAMINE 15 MG/ML VIAL IV ONE (08:00)
[2024-03-11] MEDS ORDERED: AMP/SULBACTAM SOD 3 GM in SODIUM CHLORIDE 0.9% 100 ML IV ONE (08:00)
[2024-03-11] MEDS ORDERED: AMP/SULBACTAM SOD 3 GM VIAL IV ONE (08:01)
[2024-03-11] MEDS ORDERED: PERCOCET 5-3251 EACH PO (08:19)
[2024-03-11] MEDS ORDERED: ondansetron HCL 4 MG/2 ML VIAL IV ONE (08:45)
[2024-03-11 09:23] VITALS: BP 157/90
== END 2024-03-11 09:22 | disposition home or self-care (01) ==
LOC: ED 06:22
PROVIDERS: Internal Medicine
DX: L03.317 Cellulitis of buttock (principal); K50.90 Crohn's disease, unspecified, without complications; J45.909 Unspecified asthma, uncomplicated; Z87.891 Personal history of nicotine dependence; Z79.69 Long term (current) use of other immunomodulators and immunosuppressants
CPT/HCPCS: 36415; 74177; 80053; 85025; 96375; 99284-25; A9270; J0295; J1171; J1885; Q9967

== ENCOUNTER 2024-03-16 18:37 | Emergency (ER) | payer OTHER ==
[~2024-03-16] VITALS: Ht 177.8 cm; Wt 61.7 kg
[~2024-03-16 18:37] MED LIST changes: +HADLIMA(CF40 MG/0.1 SQ; +PERCOCET 5-3251 EACH PO
--- OUTSIDE RECORDS SUMMARY | 2024-03-16 18:43 | XMS ---
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 ETommy VISIT COUNT (12 MO.) 2 [facility] TOTAL 2 NOTE: Visits indicate total known visits. ED/UCC VISIT TRACKING (12 MO.) 03/16/2024 18:37 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
[2024-03-16] MEDS ORDERED: DOXYCYCLINE HY100 MG PO (19:34)
[2024-03-16] MEDS ORDERED: METRONIDAZOLE500 MG PO (19:34)
[2024-03-16] MEDS ORDERED: ETOMIDATE 40 MG/20 ML VIAL IV ONE ×2 (20:15→20:45)
[2024-03-16 20:31] LABS: BASOPHILS 0.4 % (0-2); EOSINOPHILS 0.8 % (0-6); HEMATOCRIT 38.7 % (35.0-50.0); HEMOGLOBIN 12.2 g/dL (12.0-18.0); LYMPHOCYTES 24.2 % (24-44); MCH 27.2 (27-36); MCHC 31.6 g/dl (30-36); MCV 86.1 fl (81-99); MONOCYTES 13.8 % (0-12); NEUTROPHILS 60.8 % (39-80); PLATELET COUNT 341 K/uL (140-440); RBC 4.49 M/ul (4.3-5.7); RDW 18.2 (10.5-15.0)
[2024-03-16] MEDS ORDERED: fentaNYL citrate 100 MCG/2 ML VIAL IV ONE (21:00)
[2024-03-16] MEDS ORDERED: HYDROCODON-ACE1 EA10 PO (21:17)
[2024-03-16] MEDS ORDERED: HIBICLENS118 ML TOP (21:19)
[2024-03-16] MEDS ORDERED: HYDROCODONE BIT/ACETAMINOPHEN 5/325 MG 1 TAB HOME.PACK PO ONE (21:30)
[2024-03-16 21:36] VITALS: BP 136/93
== END 2024-03-16 21:40 | disposition home or self-care (01) ==
LOC: ED 18:37
PROVIDERS: Family Medicine
DX: L02.31 Cutaneous abscess of buttock (principal); K50.90 Crohn's disease, unspecified, without complications; J45.909 Unspecified asthma, uncomplicated; Z87.891 Personal history of nicotine dependence; Z79.899 Other long term (current) drug therapy
CPT/HCPCS: 36415; 85025; A9270; J3010

== ENCOUNTER 2024-10-18 16:12 | Observation (INO) | payer OTHER ==
[~2024-10-18] VITALS: Ht 177.8 cm; Wt 74.0 kg
[~2024-10-18 16:12] MED LIST changes: +DOXYCYCLINE HY100 MG PO; +HIBICLENS118 ML TOP; +HYDROCODON-ACE1 EA10 PO; +METRONIDAZOLE500 MG PO
[2024-10-18] MEDS ORDERED: LISINOPRIL10 MG PO (16:30)
[2024-10-18] MEDS ORDERED: RINVOQ30 MG PO (16:31)
[2024-10-18 17:04] LABS: BASOPHILS 0.4 % (0.2-1.2); EOSINOPHILS 0.2 % (0.8-7.0); LYMPHOCYTES 14.8 % (21.8-53.1); MCH 28.8 PG (25.7-32.2); MCHC 33.2 g/dL (32.3-36.5); MCV 86.8 fL (79.0-92.2); MONOCYTES 7.6 % (5.3-12.2); NEUTROPHILS 76.4 % (34.0-67.9); RBC 4.24 M/uL (4.63-6.08)
[2024-10-18 17:24] LABS: ALT (SGPT) 23.0 U/L (14-59); AST (SGOT) 20.0 U/L (15-37); GLOMERULAR FILTRATION RATE,EST 108.0 mL/min (>60); PROTEIN, TOTAL 7.7 g/dL (6.4-8.2); UREA NITROGEN 8.0 mg/dL (7-18)
[2024-10-18] MEDS ORDERED: MORPHINE SULFATE 4 MG/ML VIAL IV ONE (17:45)
[2024-10-18] MEDS ORDERED: CIPROFLOXACIN/DEXTROSE 400 MG/200 ML PIGGYBACK IV ONE (18:15)
[2024-10-18] MEDS ORDERED: MIDAZOLAM HCL 2 MG/2 ML VIAL ONE (19:00)
[2024-10-18] MEDS ORDERED: fentaNYL citrate 100 MCG/2 ML VIAL ONE (19:00)
[2024-10-18] MEDS ORDERED: LIDOCAINE HCL 2% 5 ML SDV ONE (19:00)
[2024-10-18] MEDS ORDERED: BUPIVACAINE 0.75% IN DEXTROSE 2 ML AMP ONE (19:01)
[2024-10-18] MEDS ORDERED: PANTOPRAZOLE SODIUM 40 MG/10 ML VIAL IV SCH ×2 (19:14)
[2024-10-18] MEDS ORDERED: DEXTROSE 5% - LACTATED RINGERS 1,000 ML IV SCH ×2 (19:15)
[2024-10-18] MEDS ORDERED: ACETAMINOPHEN 325 MG TAB PO PRN ×2 (19:15)
[2024-10-18] MEDS ORDERED: PROCHLORPERAZINE EDISYLATE 10 MG/2 ML VIAL IV PRN ×3 (19:15→19:30)
[2024-10-18] MEDS ORDERED: ACETAMINOPHEN 650 MG SUPP PR PRN ×2 (19:15)
[2024-10-18] MEDS ORDERED: HYDROCODONE/ACETA 5/325 TAB PO PRN ×2 (19:15)
[2024-10-18] MEDS ORDERED: HYDROmorphone HCL 1 MG/ML SYR IV PRN ×3 (19:15→19:30)
[2024-10-18] MEDS ORDERED: fentaNYL citrate 50 MCG/ML SDV IV PRN (19:30)
[2024-10-18] MEDS ORDERED: NALOXONE HCL 0.4 MG SYR IV PRN (19:30)
[2024-10-18] MEDS ORDERED: IBLOOD GLUCOSE TEST STRIP 1 EA TEST VI PRN (19:30)
[2024-10-18] MEDS ORDERED: MIDAZOLAM HCL 2 MG/2 ML VIAL IV PRN (19:30)
--- NOTE | 2024-10-18 20:17 | NUR ---
10/18/242016 Gerda Duran 2011-PATIENT ARRIVED TO PACU ON 6L MASK RR EVEN NONAROUSABLE. SR HR 70'S. IVF INFUSING. MESH UNDERWEAR IN PLACE. 2017-PATIENT AROUSING OPENING EYES ORIENTED TO PACU DENIES PAIN OR NAUSEA. PATIENT REMAINS DROWSY ENCOURAGED TO REST 6L MASK RR EVEN 100%
[2024-10-18] MEDS ORDERED: CIPROFLOXACIN/DEXTROSE 400 MG/200 ML PIGGYBACK IV SCH ×2 (21:00)
[2024-10-18 21:03] VITALS: BP 140/87
--- NOTE | 2024-10-18 21:05 | NUR ---
pt ARRIVED TO THE FLOOR VIA STRETCHER. pt ABLE TO TRASFER OVER TO THE BED BY SCOOTING HIMSELF. pt PLACED ON CPOX. IV ASSESSED, WNL. ASSESSMENT DONE. PACKING ON PLACE. REPORT RECEIVED FROM DAY SURGERY RN. pt HAS ELMER PAD AND MESH UNDERWEAR. PER PAD HAS SCANT AMOUNT OF DRAINAGE. pt C/O OF NAUSEA AT THIS TIME. THIS RN DICUSSED PLAN TO GET MEDICATIONS. pt DENIES ANY OTHER NEEDS AT THIS TIME. CALL LIGHT WITHIN REACH.
--- NOTE | 2024-10-18 21:10 | NUR ---
pt C/O NAUSEA. PRN ANTINAUSEA MEDS ADMINISTERED. SCHEDULED MEDS ADMINISTERED. pt DENIES ANY OTHER NEEDS AT THIS TIME. CALL LIGHT WITHIN REACH.
--- NOTE | 2024-10-18 21:10 | NUR ---
pt ARRIVES TO [place] VIA STRETCHER. ADMISSION HISTORY COMPLETE. ORIENTATION TO ROOM PROVIDED. CRACKERS AND ICE WATER PROVIDED PER REQUEST. VSS. PRIMARY RN IN ROOM. pt PROVIDED WITH CALL LIGHT. INSTRUCTED TO USE CALL LIGHT BEFORE OUT OF BED. VERBALIZES UNDERSTANDING.
--- NOTE | 2024-10-18 21:45 | NUR ---
SANDWICH BOX PROVIDED PER PATIENT'S REQUEST.
[2024-10-18 22:22] VITALS: BP 118/82
--- NOTE | 2024-10-18 22:45 | NUR ---
POST OP VITAL SIGNS DONE. VSS. ASSESSMENT DONE. pt C/O 09/01 PAIN. PRN PAIN MEDS ADMINISTERED. IVF INFUSING PER ORDER. pt EATING A SANDWICH BOX AT THIS TIME. pt DENIES ANY OTHER NEEDS AT THIS TIME. CALL LIGHT WITHIN REACH.
[2024-10-18 23:18] VITALS: BP 128/66
--- NOTE | 2024-10-18 23:20 | NUR ---
IN RM TO DO POST OP VITAL SIGNS. VSS. pt SITTING UP WATCHING TV. pt DENIES ANY OTHER NEEDS AT THIS TIME. CALL LIGHT WITHIN REACH.
[2024-10-19] VITALS (8 sets, daily range): BP systolic 116–137; BP diastolic 58–85
--- NOTE | 2024-10-19 00:30 | NUR ---
THIS RN IN RM TO LAST SET OF POST OP VITAL SIGNS. VSS. pt PAIN REASSESSED. pt DENIES ANY PAIN AT THIS TIME. WATER AT BED SIDE. pt DENIES ANY OTHER NEEDS AT THIS TIME. CALL LIGHT WITHIN REACH.
--- NOTE | 2024-10-19 01:24 | NUR ---
pt CALLED TO USE THE BR. pt SBA TO BR FOR LINE/TUBE MANAGEMENT. pt PEED 800mL. pt BACK TO BED. pt DENIES ANY OTHER NEEDS AT THIS TIME. CALL LIGHT WITHIN REACH.
--- NOTE | 2024-10-19 03:16 | NUR ---
pt RESTING IN THE BED WITH EYES CLOSED. RR EVEN AND UNLABORED. pt SATTING AT 98%. CALL LIGHT WITHIN REACH.
[2024-10-19 05:26] LABS: BASOPHILS 0.3 % (0.2-1.2); EOSINOPHILS 0.8 % (0.8-7.0); LYMPHOCYTES 12.3 % (21.8-53.1); MCH 29.2 PG (25.7-32.2); MCHC 32.6 g/dL (32.3-36.5); MCV 89.5 fL (79.0-92.2); MONOCYTES 7.4 % (5.3-12.2); NEUTROPHILS 78.6 % (34.0-67.9); RBC 3.63 M/uL (4.63-6.08)
--- NOTE | 2024-10-19 06:42 | NUR ---
pt ASSESSMENT AND VITAL SIGNS DONE. SCHEDULED MEDS ADMINISTERED. pt C/O 08/02 PAIN. PRN PAIN MEDS ADMINISTERED. WATER REFRESHED. pt DENIES ANY OTHER NEEDS AT THIS TIME. CALL LIGHT WITHIN REACH.
--- NOTE | 2024-10-19 07:06 | NUR ---
REPORT RECEIVED FROM MANAGING DIRECTOR NUBIA MOHAMUD. PATIENT IS LYING IN BED WITH HOB ELEVATED. PATIENT WITH EYES OPEN AND RESPIRATIONS ARE EVEN AND UNLABORED. CALL LIGHT AND PERSONAL BELONGINGS ARE WITHIN REACH.
--- NOTE | 2024-10-19 07:57 | NUR ---
DR. Ye ROUNDED ON PT AT THIS TIME WITH THIS RN AND NUBIA VALDIVIA, AT BEDSIDE.
[2024-10-19] MEDS ORDERED: CIPROFLOXACIN/DEXTROSE 400 MG/200 ML PIGGYBACK IV SCH ×4 (08:00→21:00)
--- NOTE | 2024-10-19 08:14 | NUR ---
UR CLINICAL REVIEW: [facility] [place] OBS FOR PROCEDURE GRG WITH NEED FOR I&D OF A PERRECTAL ABSCESS ODS EOCCO OBS 10/18/24 @ 1614 ORDER MATCHES REG NO AUTH REQUIRED FOR OBS VISIT PER [facility] GUIDELINES DISCHARGE HOME WHEN STABLE. ADD 10/19/24 10/20/24
--- NOTE | 2024-10-19 09:30 | NUR ---
VITAL SIGNS AND INTAKE AND OUTPUT VALUES TAKEN AND DOCUMENTED IN THE CHART. PATIENT IS LYING IN BED WITH EYES OPEN AND RESPIRATIONS ARE EVEN AND UNLABORED. FULL ASSESSMENT COMPLETE AND DOCUMENTED IN THE CHART. PATIENT RATED PAIN 6/10 AT THE RECTUM. PRN DILAUDID ADMINISTERED PER THE EMAR. PACKING REMOVED PER VERBAL ORDER AT BEDSIDE. SEROSANGUINEOUS DRAINAGE NOTED. ELMER PAD AND MESH UNDERWEAR REMAIN IN PLACE. PATIENT EDUCATED ON DOING A SITZ BATH SOON. PATIENT EXPRESSED UNDERSTANDING. PATIENT STATED NO FURTHER NEEDS AT THIS TIME. CALL LIGHT AND PERSONAL BELONGINGS ARE WITHIN REACH.
--- NOTE | 2024-10-19 10:24 | NUR ---
PATIENT RATED PAIN A 4/10 IN THE RECTUM POST DILAUDID ADMINISTRATION. PATIENT SITZ BATH COMPLETE AND TOLERATED WELL. PATIENT IS NOW BACK IN BED WITH EYES OPEN AND RESPIRATIONS ARE EVEN AND UNLABORED. HOB ELEVATED. D5LR CONTINUES TO INFUSE AT 100 ML/HR. PATIENT IS NOT REQUESTING ANYTHING FOR PAIN AT THIS TIME. CPOX IS CONNECTED. PATIENT STATED NO FURTHER NEEDS. CALL LIGHT AND PERSONAL BELONGINGS ARE WITHIN REACH.
--- NOTE | 2024-10-19 11:14 | NUR ---
PT SLEEPING IN BED, RR EVEN AND UNLABORED. CALL LIGHT AND PERSONAL BELONGINGS WITHIN REACH.
--- NOTE | 2024-10-19 11:22 | NUR ---
RESTING IN BED WITH EYES CLOSED. WILL RETURN TO SPEAK WITH PATIENT LATER TODAY.
--- NOTE | 2024-10-19 13:04 | NUR ---
PT SLEEPING IN BED, HOB SLIGHTLY ELEVATED. RR EVEN AND UNLABORED. CALL LIGHT AND PERSONAL BELONGINGS WITHIN REACH.
--- NOTE | 2024-10-19 13:30 | NUR ---
PLANNING FOR DC THIS AFTERNOON. NO DRESSING CHANGES NEEDED. NO CM NEEDS AT THIS TIME.
[2024-10-19] MEDS ORDERED: METRONIDAZOLE500 MG PO (13:32)
[2024-10-19] MEDS ORDERED: CIPROFLOXACIN500 MG PO (13:32)
[2024-10-19] MEDS ORDERED: HYDROCODON-ACE1 EA10 PO (13:33)
== END 2024-10-19 14:30 | disposition home or self-care (01) ==
LOC: ED 16:12 → MS 16:14
PROVIDERS: Emergency Medicine; ADMIT Surgery; ATTEND Surgery
PROC: 0D9Q0ZZ Drainage of Anus, Open Approach (ICD-10-PCS; principal; 2024-10-18 19:02)
DX: K61.0 Anal abscess (principal); K50.10 Crohn's disease of large intestine without complications; I10 Essential (primary) hypertension; Z87.891 Personal history of nicotine dependence
CPT/HCPCS: 00902; 36415; 74177; 80053; 85025; 96374; 96375; 99284-25; G0378; J0744; J0780; J1171; J2003; J2250; J2270; J2405; J2470; J2704; J3010; J7121; Q9967

== ENCOUNTER 2024-10-22 09:52 | Emergency (ER) | payer OTHER ==
[~2024-10-22] VITALS: Ht 177.8 cm; Wt 74.9 kg
[~2024-10-22 09:52] MED LIST changes: +CIPROFLOXACIN500 MG PO; +LISINOPRIL10 MG PO; +RINVOQ30 MG PO
--- OUTSIDE RECORDS SUMMARY | 2024-10-22 09:58 | XMS ---
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 ETommy VISIT COUNT (12 MO.) [address] [place] [address] TOTAL 4 NOTE: Visits indicate total known visits. ED/UCC VISIT TRACKING (12 MO.) 10/22/2024 09:[address] [facility] [place] TYPE: Emergency COMPLAINT: - POST OP PROBLEM 10/18/2024 16:13 [facility] [place] TYPE: Emergency COMPLAINT: - REDNESS AND SWELLING ON REAR END 03/16/2024 18:37 [facility] [place] TYPE: Emergency COMPLAINT: - ABCESS DIAGNOSES: - Crohn's disease, unspecified, without complications - Cutaneous abscess of buttock - Other long-term (current) drug therapy - Personal history of nicotine dependence - Unspecified asthma, uncomplicated 03/11/2024 06:23 [facility] [place] TYPE[place] Emergency COMPLAINT: - SKIN PROBLEM DIAGNOSES: - Cellulitis of buttock - Crohn's disease, unspecified, without complications - Local infection of the skin and subcutaneous tissue, unspecified - 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
[2024-10-22 10:38] VITALS: BP 129/97
== END 2024-10-22 10:37 | disposition home or self-care (01) ==
LOC: ED 09:52
DX: L76.22 Postprocedural hemorrhage of skin and subcutaneous tissue following other procedure (principal); Z87.891 Personal history of nicotine dependence; Z79.899 Other long term (current) drug therapy
CPT/HCPCS: 99283